=== PATIENT | female | born 1940 | race Caucasian/White ===

== ENCOUNTER 2020-07-02 16:30 | Outpatient (CLI) | payer MEDICARE, MEDICAID, SELFPAY ==
--- NOTE | 2020-07-02 16:39 | XRR_ITS ---
PROCEDURE INFORMATION: Exam: XR Chest Exam date and time: 07/02/2020 4:39 PM Age: 80 years old Clinical indication: Other: Left shoulder pain; Additional info: M25.512 - pain in left shoulder TECHNIQUE: Imaging protocol: XR of the chest. Views: 2 views. COMPARISON: CT chest w con* [id number] 12/06/2015 2:08 PM FINDINGS: Tubes, catheters and devices: Left chest ICD present. Lungs: Right lower lobe airspace opacification is suspected. Mild emphysema. Pleural spaces: Possibly small volume right pleural effusion layering dependently. Heart/Mediastinum: Background cardiomegaly is redemonstrated. Diaphragm: Elevated right diaphragm. Bones/joints: Unremarkable. XR/XR chest 2V* [id number] IMPRESSION: Suspect a small layering right pleural effusion and overlying nonspecific right lower lobe airspace opacification. Atelectasis or pneumonia not excluded.
== END 2020-07-02 16:31 | disposition home or self-care (01) ==
PROVIDERS: PCP Family Medicine; Visit Provider Nurse Practitioner Family
DX: M25.512 Pain in left shoulder (principal); J90 Pleural effusion, not elsewhere classified
CPT/HCPCS: 71046

== ENCOUNTER 2021-03-12 08:57 | Outpatient (CLI) | payer MEDICARE, MEDICAID, SELFPAY ==
[2021-03-12 07:12] VITALS: BP 144/84; PULSE 83; RESP 18; TEMP 37.3; O2SAT 98
[2021-03-12 09:29] VITALS: BMI 30.7
[2021-03-12 10:00] VITALS: BP 134/77; PULSE 83; RESP 18; TEMP 36.8; O2SAT 96
[2021-03-12 11:02] VITALS: BP 141/83; PULSE 81; RESP 17; TEMP 36.8; O2SAT 99
== END 2021-03-12 08:58 | disposition home or self-care (01) ==
PROVIDERS: PCP Family Medicine; Visit Provider Nurse Practitioner
DX: U07.1 COVID-19 (principal)
CPT/HCPCS: 96365

== ENCOUNTER → 2021-04-02 09:20 | Outpatient (BNVA) | payer MEDICARE, MEDICAID, SELFPAY | PROVIDERS: PCP Family Medicine; Visit Provider Podiatrist Foot & Ankle Surgery | DX: M79.674 Pain in right toe(s) (principal); M85.871 Other specified disorders of bone density and structure, right ankle and foot; M21.611 Bunion of right foot | CPT/HCPCS: 73630 ==

== ENCOUNTER → 2021-06-13 09:01 | Outpatient (BNVA) | payer MEDICARE, MEDICAID, SELFPAY | PROVIDERS: PCP Family Medicine; Visit Provider Internal Medicine Cardiovascular Disease | DX: Z95.0 Presence of cardiac pacemaker (principal) | CPT/HCPCS: 93279 ==

== ENCOUNTER → 2021-06-17 13:51 | Outpatient (BNVA) | payer MEDICARE, MEDICAID, SELFPAY | PROVIDERS: PCP Family Medicine; Visit Provider Internal Medicine Cardiovascular Disease | DX: I48.91 Unspecified atrial fibrillation (principal); I10 Essential (primary) hypertension; Z95.0 Presence of cardiac pacemaker | CPT/HCPCS: 99213 ==

== ENCOUNTER → 2021-06-18 09:29 | Outpatient (BNVA) | payer MEDICARE, MEDICAID, SELFPAY | PROVIDERS: PCP Family Medicine; Visit Provider Internal Medicine Cardiovascular Disease | DX: Z95.0 Presence of cardiac pacemaker (principal) | CPT/HCPCS: 93279 ==

== ENCOUNTER 2021-06-18 14:28 | Inpatient (IN) | payer MEDICARE, MEDICAID, SELFPAY ==
[2021-06-18] VITALS (13 sets, daily range): BP systolic 145–174; BP diastolic 84–104; PULSE 63–68; RESP 15–20; TEMP 36.3–36.8; O2SAT 92–98; BMI 36.1
--- NOTE | 2021-06-18 17:36 | PC.NURSE ---
20 ga lt ac rainbow drawn
[2021-06-18 17:40] LABS: Basophils # 0.1 10^3/uL (0.0-0.1); Basophils % 0.8 %; Eosinophils # 0.2 10^3/uL (0.0-0.8); Eosinophils % 1.6 %; Hematocrit 28.3 % (37.0-47.0); Hemoglobin 7.9 g/dL (11.5-15.3); Lymphocytes # 2.2 10^3/uL (0.8-4.8); Mean Corpuscular HGB Conc 27.9 g/dL (30.0-36.0); Mean Corpuscular Hemoglobin 24.5 pg (28.0-34.0); Mean Corpuscular Volume 87.6 fl (81-99); Mean Platelet Volume 11.8 fL (7.4-10.4); Monocytes # 0.6 10^3/uL (0.2-0.9); Monocytes % 6.6 %; Neutrophils # 6.08 10^3/uL (1.8-7.7); Neutrophils % 66.7 %; Nucleated Red Blood Cells % 0 %; Platelet Count 230 10^3/cmm (130-400); Red Blood Count 3.23 10^6/uL (4.1-5.3); Red Cell Distribution Width 17.8 % (12.1-15.1); White Blood Count 9.1 10^3/uL (4.0-10.0)
[2021-06-18 17:59] LABS: Alanine Aminotransferase 8 U/L (0-33); Albumin Level 4.2 g/dL (3.5-5.2); Alkaline Phosphatase 141 IU/L (35-105); Anion Gap 14.2 (5-19); Aspartate Amino Transferase 23 U/L (0-32); Blood Urea Nitrogen 29 mg/dL (8-23); Calcium 9.2 mg/dL (8.5-10.5); Carbon Dioxide 26 mmol/L (22-29); Chloride 105 mmol/L (98-107); Globulin 4.1 g/dL (1.3-4.6); Glucose 99 mg/dL (65-115); Osmolality Calculated 298 mOsm/kg (285-295); Potassium 4.2 mmol/L (3.5-5.1); Sodium 141 mmol/L (136-145); Total Bilirubin 0.3 mg/dL (0.15-1.2); Total Protein 8.3 g/dL (6.6-8.7)
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
--- NOTE | 2021-06-18 19:42 | XRR_ITS ---
PROCEDURE INFORMATION: Exam: XR Chest Exam date and time: 06/18/2021 7:52 PM Age: 81 years old Clinical indication: Other: Weakness; Prior surgery; Surgery date: 6+ months; Surgery type: Pacemaker TECHNIQUE: Imaging protocol: XR of the chest. Views: 1 view. COMPARISON: CR XR chest 2V* [id number] 07/02/2020 4:47 PM FINDINGS: Tubes, catheters and devices: Stable single lead left subclavian pacemaker. Lungs: Stable discoid atelectasis or scar in the right lung base and medial left base. The lungs are otherwise clear. Pleural spaces: Unremarkable. No pleural effusion. No pneumothorax. Heart/Mediastinum: The heart size is upper normal. Diaphragm: Stable elevation of the right diaphragm. Bones/joints: Unremarkable. XR/XR chest 1V portable [id number] IMPRESSION: No acute finding.
--- NOTE | 2021-06-18 20:15 | W.ED.WEAKNES ---
HPI - Weakness General: Chief complaint: Shortness of Breath/Dyspnea Stated complaint: abnormal labs Time Seen by Provider: 06/18/21 19:37 Source: patient Mode of arrival: ambulatory Limitations: no limitations History of Present Illness: 81-year-old female who has a history of pacemaker placement states she had over the last week she been having some weakness and dizziness seen by her market research executive had been recommending a new placement place with that scheduled on this Wednesday. States she signed in the office today she is continually feeling lightheaded especially standing was found to be anemic patient was sent here for likely admission. She does states that anytime she gets up or moves around she feels very weak denies any chest pain denies any vomiting or diarrhea denies any blood in her stool. Associated symptoms: Denies chest pain, chills, dysuria, easy bruising, fever(s), headache(s), nausea or vomiting Review of Systems Const: Denies: fever(s), chills, body aches or change in appetite Eyes: Denies: blurry vision or eye discomfort ENMT: Denies: throat pain or dental pain Card: Denies: chest pain Resp: Reports: dyspnea GI: Denies: abdominal pain, nausea, vomiting or diarrhea : Denies: dysuria Musc: Denies: neck pain or back pain Skin/Breast: Denies: rash Neuro: Denies: headache(s) Psych: Denies: depression Rony/Lymph: Denies: easy bruising All/Imm: Denies: urticaria PFSH ED PFSH: Medical History (Updated 06/18/21 @ 20:44 by Daryn Jacobs DO) Atrial fibrillation CAD (coronary artery disease) Diastolic heart failure GERD (gastroesophageal reflux disease) HTN (hypertension) Osteoarthritis Pacemaker Varicose veins of left lower extremity with other complications Surgical History S/P cardiac pacemaker procedure Family History Father , [place] age 44 Myocardial infarction Social History Smoking and tobacco status: never smoked History of recent travel: No Physical Exam Const: COMMON NORMALS: no acute distress, patient oriented x3 and healthy appearing HENMT: COMMON NORMALS: normocephalic and atraumatic HEAD & SCALP: normocephalic and atraumatic Eye: COMMON NORMALS: Equal, round and reactive pupils present and EOMs intact bilaterally PUPIL: Yes Equal, round and reactive pupils present Neck/C-Spine: COMMON NORMALS: full ROM and supple Chest: COMMONS NORMALS: normal inspection of the chest and normal palpation of entire chest wall Resp: COMMON NORMALS: normal respiratory effort, No retractions, No use of accessory muscles and clear to auscultation bilaterally AUSCULTATION: clear to auscultation bilaterally Cardio: COMMON NORMALS: regular rate, regular rhythm and No murmurs present (Cardio) RATE: regular rate RHYTHM: regular rhythm GI: COMMON NORMALS: Normal to inspection, nondistended, normoactive bowel sounds present, Soft to palpation, non-tender and no masses PALPATION: Yes Soft to palpation Extremity: COMMON NORMALS: normal to inspection and full ROM Neuro: COMMON NORMALS: patient oriented x3, moves all extremities and no focal motor deficits Psych: COMMON NORMALS: mental status grossly normal, Normal thought process present and cooperative THOUGHT PROCESS: Normal thought process present Skin: COMMON NORMALS: no rashes or lesions noted and no wounds GENERAL SKIN EXAM: no rashes or lesions noted Course Vital Signs: Vital signs: Vital Signs Temperature 98.1 F 06/18/21 17:54 Pulse Rate 65 06/18/21 17:54 Respiratory Rate 15 06/18/21 17:54 Blood Pressure 145/87 06/18/21 17:54 Pulse Oximetry 97 06/18/21 17:54 MDM - Weakness Medical Decision Making Patient presents here with some generalized weakness she is scheduled to have a pacemaker placed on Wednesday she is anemic here no signs of acute bleeding blood pressure here is normal spoke to hospitalist will admit also spoke to Dr. Chase of cardiology who is consulted. Lab Data : 06/18/21 17:29 06/18/21 17:29 Radiology Impressions Chest X-Ray 06/18/21 19:42 IMPRESSION: No acute finding. Laboratory Results WBC 9.1 10^3/uL (4.0-10.0) 06/18/21 17:29 RBC 3.23 10^6/uL (4.1-5.3) L 06/18/21 17:29 Hgb 7.9 g/dL (11.5-15.3) L 06/18/21 17: Hct 28.3 % (37.0-47.0) L 06/18/21 17: MCV 87.6 fl (81-99) 06/18/21 17: MCH 24.5 pg (28.0-34.0) L 06/18/21 17: MCHC 27.9 g/dL (30.0-36.0) L 06/18/21: RDW 17.8 % (12.1-15.1) H 06/18/21 17: Plt Count 230 10^3/cmm (130-400) 06/18/21 17: MPV 11.8 fL (7.4-10.4) H 06/18/21: Neut % (Auto) 66.7 % 06/18/21: Lymph % (Auto) 24.0 % 06/18/21: [place] % (Auto) 6.6 % 06/18/21 17: Eos % (Auto) 1.6 % 06/18/21 17: Baso % (Auto) 0.8 % 06/18/21: Neut # (Auto) 6.08 10^3/uL (1.8-7.7) 06/18/21: Lymph # (Auto) 2.2 10^3/uL (0.8-4.8) 06/18/21: [place] # (Auto) 0.6 10^3/uL (0.2-0.9) 06/18/21: Eos # (Auto) 0.2 10^3/uL (0.0-0.8) 06/18/21: Baso # (Auto) 0.1 10^3/uL (0.0-0.1) 06/18/21: Nucleated RBC % (auto) 0 % 06/18/21: Nucleated RBCs # 0.0 /100WBC 06/18/21 17: Sodium 141 mmol/L (136-145) 06/18/21 17: Potassium 4.2 mmol/L (3.5-5.1) 06/18/21: Chloride 105 mmol/L (98-107) 06/18/21 17:29 Carbon Dioxide 26 mmol/L (22-29) 06/18/21 17:29 Anion Gap 14.2 (5-19) 06/18/21 17:29 BUN 29 mg/dL (8-23) H 06/18/21 17:29 Creatinine 1.2 mg/dL (0.5-0.9) H 06/18/21 17:29 GFR Calculation Not Reportable 06/18/21 17:29 Glucose 99 mg/dL (65-115) 06/18/21 17:29 Calculated Osmolality 298 mOsm/kg (285-295) H 06/18/21 17:29 Calcium 9.2 mg/dL (8.5-10.5) 06/18/21 17:29 Total Bilirubin 0.3 mg/dL (0.15-1.2) 06/18/21 17:29 AST 23 U/L (0-32) 06/18/21 17:29 ALT 8 U/L (0-33) 06/18/21 17:29 Alkaline Phosphatase 141 IU/L (35-105) H 06/18/21 17:29 Total Protein 8.3 g/dL (6.6-8.7) 06/18/21 17:29 Albumin 4.2 g/dL (3.5-5.2) 06/18/21 17:29 Globulin 4.1 g/dL (1.3-4.6) 06/18/21 17:29 Blood Type B Positive 06/18/21 17:29 Rho(D) Type Positive 06/18/21 17:29 Antibody Screen Negative 06/18/21 17:29 Crossmatch See Detail 06/18/21 17:29 EKG Data EKG 1: I personally reviewed and interpreted this EKG as follows: EKG interpretation date: 06/18/21 EKG interpretation time: 20:09 Interpretation: paced hr [address] or t wave abnormalities qrs 198 qtc 506 Discharge Plan Discharge Patient Disposition: Admitted As Inpatient Clinical Impression: Pacemaker, Anemia Condition: Stable Prescriptions: No Action Amitiza 24 mcg capsule 24 mcg PO BID 0RF aspirin [Adult Low Dose Aspirin] 81 mg tablet,delayed release (DR/EC) 81 mg PO DAILY 0RF multivitamin Tablet 1 tab PO DAILY 0RF eszopiclone [Lunesta] 2 mg tablet PO 0RF albuterol sulfate [ProAir HFA] 90 mcg/actuation HFA aerosol inhaler 2 puff INHALATION Q6H PRN (Reason: Shortness Of Breath) 0RF hydrocodone-acetaminophen 5-325 mg tablet 1 tab PO BID PRN (Reason: Pain) 0RF pregabalin [Lyrica] 75 mg capsule 150 mg PO BID 0RF Rx Instructions: 150mg at NOON and 150mg HS sennosides 25 mg tablet 75 mg PO DIRECTED PRN (Reason: Constipation) 0RF Rx Instructions: 50mg in AM and 25mg in PM warfarin 2.5 mg tablet 2.5 mg PO DIRECTED 0RF Rx Instructions: 1mg MWF 2mg all other days Breztri Aerosphere 160-9-4.8 mcg/actuation HFA aerosol inhaler 2 inh inhalation BID 0RF mupirocin 2 % ointment 1 applic topical BID 14 Days Qty: 22 0RF furosemide [Lasix] 20 mg tablet 20 mg PO DAILY PRN (Reason: weight gain) Qty: 90 3RF losartan 50 mg tablet 50 mg PO DAILY Qty: 90 3RF potassium chloride 10 mEq tablet extended release 10 meq PO DAILY PRN (Reason: weight gain) Qty: 90 3RF ropinirole 2 mg tablet 2 mg PO DAILY 0RF calcium carbonate-vitamin D3 [Calcium 600 with Vitamin D3] 600 mg(1,500mg) -500 unit capsule PO 0RF amlodipine 5 mg tablet 2.5 mg PO DAILY 0RF metoprolol succinate 50 mg tablet extended release 24 hr 150 mg PO DIRECTED 0RF Rx Instructions: 2 in AM and 1 HS lansoprazole [Prevacid] 30 mg capsule,delayed release(DR/EC) 30 mg PO BID Qty: 180 3RF Referrals: Neeraj Cardoza MD [Primary Care Provider] - Coding Level of Care Code ED Agronomy Technician for Chg Fwd Exam Comprehensive
--- NOTE | 2021-06-18 20:42 | P.HP_ITS ---
Providers/Chief Complaint Primary Care Provider: Neeraj Cardoza MD Chief Complaint: abnormal labs History of Present Illness The patient is an 81-year-old female who was directed to the emergency department by her farm machine operator due to anemia. Upon further questioning the patient Cates that she has been feeling unwell for approximately 2 days leading up to hospitalization. She admits to dyspnea, dyspnea on exertion, lightheaded, dizziness. She denies fever, rigors, nausea, vomiting, cough, wheeze, abdominal pain, diarrhea, myalgia, chest pain, diaphoresis, palpitations, sensation of rapid heartbeat, sensation knee regular heartbeat. She denies melena or hematochezia. In the emergency department she is found to be mildly anemic. She presents for further evaluation Review of Systems General: Reports: 10 or more systems reviewed and unremarkable except in HPI and below Medications/Allergies Home Medications Medication Instructions Recorded Confirmed Last Taken Type albuterol sulfate 90 mcg/actuation 2 puff INHALATION Q6H PRN 05/16/19 06/17/21 03/11/21 History aerosol inhaler (ProAir HFA) aspirin 81 mg tablet,delayed 81 mg PO DAILY 05/16/19 06/17/21 03/11/21 History release (Adult Low Dose Aspirin) eszopiclone 2 mg tablet (Lunesta) PO 05/16/19 06/17/21 03/11/21 History hydrocodone 5 mg-acetaminophen 325 1 tab PO BID PRN 05/16/19 06/17/21 03/11/21 History mg tablet lubiprostone 24 mcg capsule 24 mcg PO BID 05/16/19 06/17/21 03/11/21 History (Amitiza) multivitamin 1 tab PO DAILY 05/16/19 06/17/21 03/11/21 History pregabalin 75 mg capsule (Lyrica) 150 mg PO BID cap 10/11/20 06/17/21 03/11/21 History ropinirole 2 mg tablet 2 mg PO DAILY 10/11/20 06/17/21 03/11/21 History sennosides 25 mg tablet 75 mg PO DIRECTED PRN tab 10/11/20 06/17/21 03/11/21 History warfarin 2.5 mg tablet 2.5 mg PO DIRECTED tab 10/11/20 06/17/21 03/11/21 History budesonide 160 mcg-glycopyr 9 2 inh INHALATION BID 02/13/21 04/23/21 03/11/21 History mcg-formot 4.8 mcg/actuation HFA inhaler (Breztri Aerosphere) mupirocin 2 % topical ointment 1 applic TOPICAL BID 14 Days #22 g 02/13/21 06/17/21 03/11/21 Rx calcium carbonate 600 mg-vitamin cap PO 02/14/21 06/17/21 03/11/21 History D3 12.5 mcg (500 unit) capsule (Calcium 600 with Vitamin D3) furosemide 20 mg tablet (Lasix) 20 mg PO DAILY PRN #90 tab 04/15/21 06/17/21 Unknown Rx losartan 50 mg tablet 50 mg PO DAILY #90 tab 04/15/21 06/17/21 Unknown Rx potassium chloride 10 mEq 10 meq PO DAILY PRN #90 tab 04/15/21 06/17/21 Unknown Rx tablet,extended release lansoprazole 30 mg capsule,delayed 30 mg PO BID #180 cap 04/29/21 06/17/21 Unkno wn Rx release (Prevacid) amlodipine 5 mg tablet 2.5 mg PO DAILY tab 06/17/21 Unknown History metoprolol succinate 50 mg 150 mg PO DIRECTED tab 06/17/21 Unknown History tablet,extended release 24 hr Allergies Allergy/AdvReac Type Severity Reaction Status Date / Time atropine Allergy Unknown Unknown Verified 06/17/21 14:00 benztropine Allergy Unknown Unknown Verified 06/17/21 14:00 cefadroxil [From Duricef] Allergy Unknown Unknown Verified 06/17/21 14:00 cimetidine Allergy Unknown Unknown Verified 06/17/21 14:00 enalapril Allergy Unknown Unknown Verified 06/17/21 14:00 enalaprilat [From Vasotec] Allergy Unknown Unknown Verified 06/17/21 14:00 gabapentin Allergy Unknown Unknown Verified 06/17/21 14:00 Sulfa (Sulfonamide Allergy Unknown Unknown Verified 06/17/21 14:00 Antibiotics) zolpidem [From Ambien] Allergy Unknown Unknown Verified 06/17/21 14:00 PFSH Acute PFSH: Medical History (Updated 06/18/21 @ 20:44 by Daryn Jacobs DO) Atrial fibrillation CAD (coronary artery disease) Diastolic heart failure GERD (gastroesophageal reflux disease) HTN (hypertension) Osteoarthritis Pacemaker Varicose veins of left lower extremity with other complications Surgical History S/P cardiac pacemaker procedure Family History Father , [place] age 44 Myocardial infarction Social History Smoking and tobacco status: never smoked History of recent travel: No Vitals/I&O/Wt Last Vital Signs Temp 98.1 F 06/18/21 17:54 Pulse 65 06/18/21 17:54 Resp 15 06/18/21 17:54 BP 145/87 06/18/21 17:54 Pulse Ox 97 06/18/21 17:54 Weight last 48 hrs Weight 83.915 kg Physical Exam Narrative: General: -Alert -No acute distress -No dyspnea -No tachypnea Head: -Atraumatic -Normocephalic Eyes: -Pupils equally round and reactive to light and accommodation -Extraocular muscles intact Neurological: -Cranial nerves II-XII intact Neck: -No jugular venous distention -No thyromegaly -No cervical lymphadenopathy Heart: -Regular rate -Regular rhythm -No murmurs -No gallops -No rubs Lungs: -No wheeze -No rhonchi -No rales ? Abdomen: -Normal bowel sounds in all four quadrants -No rebound -No guarding -No tenderness Extremities: -2/4 pulse in all four extremities -No clubbing -No cyanosis -No edema -No calf tenderness present bilaterally -Negative Elmer?s sign bilaterally Musculoskeletal: -5/5 bilateral upper extremity strength -5/5 bilateral lower extremity strength -Sensorium of bilateral upper extremities are equal and intact -Sensorium of bilateral lower extremities are equal and intact ? Additional Details / Additional Findings / Exceptions / Miscellaneous: Data : 06/18/21 17:29 06/18/21 17:29 A&P Assessment and plan (1) Atrial fibrillation: Status: Acute Plan Generalized weakness, perhaps secondary to anemia. Urinalysis pending. Chest x-ray pending. IV normal saline at 50 ML's per hour. Telemetry monitoring. Query malfunctioning pacemaker. The patient indicates that she was scheduled for pacemaker placement, I believe, on June 20, 2021. Telemetry monitoring. I have been notified that cardiology is aware of the patient and that the pacemaker will be replaced during this hospitalization Osteopenia Acute renal insufficiency. Will monitor creatinine intermittently. IV normal saline 50 ML's per hour while closely monitoring respiratory function given patient's history of CHF Restless leg syndrome. Requip 2 Mill grams by mouth daily Insomnia Asthma Atrial for ablation, status post pacemaker placement. Telemetry monitoring IBS. MAT is a 24 my grams by mouth twice a day Chronic pain Anemia. We will monitor hemoglobin level intermittently. Check serum ferritin, iron panel, fecal occult blood. Patient has been ordered 2 units packed red blood cells to be transfused by the emergency department on June 18, 2021 CHF, ejection fraction 45% with moderate to severe tricuspid regurgitation, moderate pulmonary hypertension. Strict I/O. Daily weight Coronary artery disease GERD Hypertension Obesity. The patient becomes regarding lifestyle modification Neuropathy. Lyrica 75 Mill grams by mouth twice a day DVT Proflex is. Bilateral SCD Attestations Medical Necessity Statement*: Expected length of stay is greater than 48 hours Coding Level of Care Code Acute Research Group Director for Chg Fwd Diagnoses Atrial fibrillation I48.91
[2021-06-18 21:00] LABS: Bilirubin Urine Neg (Negative); Blood Urine Neg (Negative); Glucose Urine UA Norm (Normal); Ketones Urine Negative (Negative); Nitrate Urine Positive (Negative); Protein Urine 1+ (Negative); Urine Appearance SL Hazy (CLEAR); Urine Color Yellow (Yellow); Urobilinogen Urine 1 mg/dL (Negative); pH Urine 5 (5-7)
[2021-06-18 21:01] LABS: Add Urine Microscopic? YES; Leukocyte Esterase Urine 1+ (Negative)
[2021-06-18 21:02] LABS: RBC Urine 0-4 /hpf (0-2)
[2021-06-18 21:03] LABS: Bacteria Urine 2+ /hpf; WBC Urine 55-80 /hpf (0-5)
[2021-06-18 21:04] LABS: Add Urine Culture? Yes
[2021-06-18 21:41] LABS: Ferritin 6 ng/mL (15-150); Iron 19 ug/dL (37-145); Percent Saturation 4.7 % (20-50); Total Iron Binding Capacity 403 mcg/dl; Unsaturated Iron Binding 384 ug/dL (112-347)
[2021-06-18] MEDS: HYDROcodone-acetaminophen 5-325 mg Tablet 1 TAB PO (23:04)
[2021-06-18] MEDS: ropinirole 2 mg Tablet PO (23:04)
[2021-06-18] MEDS: pregabalin 75 mg Capsule 150 MG PO (23:05)
[2021-06-18] MEDS: sodium chloride 0.9% 1,000 ML 50 ML IV (23:06)
[2021-06-19] VITALS (12 sets, daily range): BP systolic 118–153; BP diastolic 74–88; PULSE 64–65; RESP 14–20; TEMP 36.4–36.8; O2SAT 91–98
[2021-06-19 05:05] LABS: Hemoglobin 10.7 g/dL (11.5-15.3)
[2021-06-19 05:16] LABS: INR 1.79 (0.8-1.2)
[2021-06-19 05:17] LABS: Partial Thromboplastin Time 42.4 SECONDS (23.9-36.7)
[2021-06-19 05:26] LABS: Anion Gap 13.9 (5-19); Blood Urea Nitrogen 25 mg/dL (8-23); Calcium 8.7 mg/dL (8.5-10.5); Carbon Dioxide 23 mmol/L (22-29); Chloride 108 mmol/L (98-107); Glucose 110 mg/dL (65-115); Osmolality Calculated 297 mOsm/kg (285-295); Potassium 3.9 mmol/L (3.5-5.1); Sodium 141 mmol/L (136-145)
--- NOTE | 2021-06-19 06:24 | PC.NURSE ---
Patient arrived to floor via cart, AAOx4, OOB to bathroom using walker. Received PRBC with no complications, minimal c/o pain. No new events, no needs at this time. Refusing to get into chair at this time and wants to wait until closer to breakfast.
--- NOTE | 2021-06-19 08:38 | PM.CONSULT ---
Providers/Reason For Consult Consulting Physician/Specialty*: ISIS Chase MD/cardiology Reason for Consult*: Patient with permanent pacemaker, has SOLA, symptomatic patient Requesting Physician: Dr. Garrison Attending Physician: Chip Garrison MD Primary Care Provider: Neeraj Cardoza MD History of Present Illness History of Present Illness Megan Das is a 81 year old female with a history of chronic atrial fibrillation, had? AV mian ablation in 2006 followed by permanent pacemaker in [place] by Dr. Johansen at the [facility]. Her initial pacemaker was revised in 2013. She presented to the clinic with complaints of shortness of breath, dizziness and weakness. Her pacemaker interrogation revealed - the device went into SOLA on 06/17/2021. Patient had a CBC yesterday which revealed a hemoglobin of 7.7. She is known to have chronic atrial fibrillation and is on long-term oral anticoagulation with Coumadin. She is admitted to the hospital for further evaluation and management. The patient is pacemaker dependent. According the patient, when her pacemaker went into SOLA last time also she became very weak and tired. Her lower rate is set for 80. The SOLA rate is 65. Patient has not been feeling well for the last couple of weeks. Her symptoms got worse in the last couple of days. The worsening of her symptoms seems to be correlating with the SOLA. She denies any fever or chills. No cough. No hematemesis or melena. She has a history of GERD. Also has a history of high blood pressure. No history for CVA or peripheral artery disease. No history for any kidney disease or bleeding disorders. Has not had any significant anemia in the recent past. Patient received 2 units of blood yesterday. She seems to be feeling better today. We have not yet identified a source of bleeding. 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 Date of implantation: 08/24/2006 Review of Systems Narrative: CONSTITUTIONAL: No fever or chills. Lysed weakness/fatigue/tiredness as mentioned above EYES: No blurring of vision or other visual disturbances lately. ENT: No hoarseness of voice, auditory disturbances or sore throat. CARDIOVASCULAR: As mentioned above. RESPIRATORY: No significant cough. GASTROINTESTINAL: No hematemesis or melena. GENITOURINARY: No dysuria or hematuria. INTEGUMENTARY: No skin rashes or history of skin cancer. NEURO: No transient ischemic attacks or amaurosis. PSYCHIATRIC: No history of psychosis or major depression. HEMATOLOGIC: Patient is on long-term oral anticoagulation. Currently diagnosed with anemia ENDOCRINE: No history of polyuria or polydipsia. MUSCULOSKELETAL: No recent joint pain or swelling. ALLERGY/IMMUNOLOGY: As mentioned above. Medications/Allergies Home Medications Medication Instructions Recorded Confirmed Last Taken Type albuterol sulfate 90 mcg/actuation 2 puff INHALATION Q6H PRN 05/16/19 06/18/21 03/11/21 History aerosol inhaler (ProAir HFA) aspirin 81 mg tablet,delayed 81 mg PO BEDTIME 05/16/19 06/18/21 06/17/21 History release (Adult Low Dose Aspirin) eszopiclone 2 mg tablet (Lunesta) 2 mg PO BEDTIME 05/16/19 06/18/21 06/17/21 History hydrocodone 5 mg-acetaminophen 325 1 tab PO BID PRN 05/16/19 06/18/21 06/18/21 History mg tablet lubiprostone 24 mcg capsule 24 mcg PO BID 05/16/19 06/18/21 06/18/21 History (Amitiza) multivitamin 1 tab PO DAILY 05/16/19 06/18/21 06/18/21 History ropinirole 2 mg tablet 2 mg PO BEDTIME 10/11/20 06/18/21 06/17/21 History warfarin 2.5 mg tablet See Rx Instructions .ROUTE 10/11/20 06/18/21 06/17/21 History .COMPLEX tab budesonide 160 mcg-glycopyr 9 2 inh INHALATION DAILY 02/13/21 06/18/21 06/18/21 History mcg-formot 4.8 mcg/actuation HFA inhaler (Breztri Aerosphere) mupirocin 2 % topical ointment 1 applic TOPICAL BID 14 Days #22 g 02/13/21 06/18/21 03/11/21 Rx calcium carbonate 600 mg-vitamin 1 cap PO DAILY 02/14/21 06/18/21 06/18/21 History D3 12.5 mcg (500 unit) capsule (Calcium 600 with Vitamin D3) lansoprazole 30 mg capsule,delayed 30 mg PO BID #180 cap 04/29/21 06/18/21 06/18/21 Rx release (Prevacid) amlodipine 5 mg tablet 2.5 mg PO BEDTIME tab 06/17/21 06/18/21 06/17/21 History metoprolol succinate 50 mg See Rx Instructions .ROUTE 06/17/21 06/18/21 06/18/21 History tablet,extended release 24 hr .COMPLEX tab eszopiclone 2 mg tablet (Lunesta) 2 mg PO BEDTIME 06/18/21 06/19/21 Unknown History furosemide 20 mg tablet (Lasix) See Rx Instructions .ROUTE .COMPLEX 06/18/21 06/18/21 06/17/21 History hydrocodone 5 mg-acetaminophen 325 1 tab PO Q4H PRN 06/18/21 06/19/21 Unknown History mg tablet losartan 50 mg tablet 50 mg PO BEDTIME 06/18/21 06/18/21 06/17/21 History potassium chloride 10 mEq See Rx Instructions .ROUTE .COMPLEX 06/18/21 06/18/21 06/17/21 History tablet,extended release pregabalin 150 mg capsule 150 mg PO BID 06/18/21 06/18/21 06/18/21 History sennosides 8.6 mg tablet (senna) See Rx Instructions .ROUTE .COMPLEX 06/18/21 06/18/21 06/18/21 History vit C 250 mg-vit E 90 mg-zinc 40 1 tab PO BID 06/18/21 06/18/21 06/18/21 History mg-copper 1 [id number] capsule (PreserVision AREDS-2) Allergies Allergy/AdvReac Type Severity Reaction Status Date / Time atropine Allergy Unknown Unknown Verified 06/17/21 14:00 benztropine Allergy Unknown Unknown Verified 06/17/21 14:00 cefadroxil [From Duricef] Allergy Unknown Unknown Verified 06/17/21 14:00 cimetidine Allergy Unknown Unknown Verified 06/17/21 14:00 enalapril Allergy Unknown Unknown Verified 06/17/21 14:00 enalaprilat [From Vasotec] Allergy Unknown Unknown Verified 06/17/21 14:00 gabapentin Allergy Unknown Unknown Verified 06/17/21 14:00 Sulfa (Sulfonamide Allergy Unknown Unknown Verified 06/17/21 14:00 Antibiotics) zolpidem [From Ambien] Allergy Unknown Unknown Verified 06/17/21 14:00 Current Medications Generic Name Dose Route Start Last Admin Trade Name Freq PRN Reason Stop Dose Admin Hydrocodone Bitart/Acetaminophen 1 tab 06/18/21 22:51 06/18/21 23:04 Hydrocodone-Acetaminophen 5-325 Mg Tablet PO 1 tab Q4H PRN Administration Pain Sodium Chloride 1,000 mls @ 75 mls/hr 06/18/21 21:00 06/18/21 21:15 Sodium Chloride 0.9% IV Not Given .[id number] KACEY Sodium Chloride 1,000 mls @ 50 mls/hr 06/18/21 22:01 06/18/21 23:06 Sodium Chloride 0.9% IV 50 mls/hr .Q20H KACEY Administration Pregabalin 150 mg 06/18/21 22:45 06/18/21 23:05 Pregabalin 75 Mg Capsule PO 150 mg BID KACEY Administration Ropinirole HCl 2 mg 06/18/21 22:38 06/18/21 23:04 Ropinirole 2 Mg Tablet PO 2 mg DAILY KACEY Administration PFSH Acute PFSH: Medical History Atrial fibrillation CAD (coronary artery disease) Diastolic heart failure GERD (gastroesophageal reflux disease) HTN (hypertension) Osteoarthritis Pacemaker Varicose veins of left lower extremity with other complications Surgical History Previous back surgery S/P cardiac pacemaker procedure S/P cataract extraction S/P hysterectomy S/P rotator cuff repair *DELETE* S/P tubal ligation Family History Father , [place] 44 Myocardial infarction Social History Smoking and tobacco status: never smoked History of recent travel: No Vitals/I&O/Wt Last Vital Signs Temp 97.8 F 06/19/21 07:57 Pulse 65 06/19/21 07:57 Resp 16 06/19/21 07:57 BP 138/88 06/19/21 07:57 Pulse Ox 97 04/07/22 07:57 06/18/21 06/19/21 06/19/21 22:59 06:59 14:59 Intake Total 350 / 350 450 / 800 0 / 0 Balance 350 / 350 450 / 800 0 / 0 Weight last 48 hrs Weight 191 lb 12.835 oz Weight 185 lb Physical Exam Narrative: GENERAL: The patient is alert and oriented times three. Not in any acute distress. HEENT: Minimal pallor. No icterus or lymphadenopathy. The pupils are reactant to light. Oral cavity: There are no mucous membrane lesions. Funduscopic examination: The fundus is not visualized. NECK: Trachea appears to be central. No masses noted. No JVD or thyromegaly appreciated. No carotid bruit. RESPIRATORY: Chest is symmetrical. No intercostals muscle retraction or any accessory muscle activation. There is no chest wall tenderness. Breath sounds are heard bilaterally. No rales or rhonchi heard. No evidence of any consolidation. Her systolic murmur in the left sternal border. No diastolic murmurs. The pacemaker site has minimal keloid but no signs of infection. BREASTS: Deferred. HEART: The PMI is in the 5th left intercostals space just inside the midclavicular line. No palpable precordial events. S1 and S2 are normal. No S3 or S4 heard. No pericardial rub or any click heard. ABDOMEN: No vessel pulsations or distention. No tenderness. No organomegaly appreciated. No abdominal bruit. Bowel sounds are normally heard. : Deferred. RECTAL: Deferred. LYMPHATIC: No lymphadenopathy noted in the neck or groin. EXTREMITIES: No edema or cyanosis. No clubbing. Peripheral pulses are palpable but weak bilaterally. MUSCULOSKELETAL: Gait is normal. There is no joint deformity or swelling noted. No joint tenderness or any effusion. The shoulder and hip joints appear to have normal range of motion. SKIN: There are no significant scars or skin rash noted. NEUROPSYCHIATRIC: The patient is alert and oriented x3. Appears to be in a good mood. The higher functions are grossly within normal limits. No tremors or rigidity noted. Data : 06/20/21 03:11 06/20/21 03:11 Other Labs: Laboratory Last Values WBC 9.1 10^3/uL (4.0-10.0) 06/18/21 17:29 RBC 3.23 10^6/uL (4.1-5.3) L 06/18/21 17:29 Hgb 10.7 g/dL (11.5-15.3) L D 06/19/21 04:56 Hct 28.3 % (37.0-47.0) L 06/18/21 17:29 MCV 87.6 fl (81-99) 06/18/21 17:29 MCH 24.5 pg (28.0-34.0) L 06/18/21 17:29 MCHC 27.9 g/dL (30.0-36.0) L 06/18/21 17:29 RDW 17.8 % (12.1-15.1) H 06/18/21 17:29 Plt Count 230 10^3/cmm (130-400) 06/18/21 17:29 MPV 11.8 fL (7.4-10.4) H 06/18/21 17:29 Neut % (Auto) 66.7 % 06/18/21 17:29 Lymph % (Auto) 24.0 % 06/18/21 17:29 [place] % (Auto) 6.6 % 06/18/21 17:29 Eos % (Auto) 1.6 % 06/18/21 17:29 Baso % (Auto) 0.8 % 06/18/21 17:29 Neut # (Auto) 6.08 10^3/uL (1.8-7.7) 06/18/21 17:29 Lymph # (Auto) 2.2 10^3/uL (0.8-4.8) 06/18/21 17:29 [place] # (Auto) 0.6 10^3/uL (0.2-0.9) 06/18/21 17:29 Eos # (Auto) 0.2 10^3/uL (0.0-0.8) 06/18/21 17:29 Baso # (Auto) 0.1 10^3/uL (0.0-0.1) 06/18/21 17:29 Nucleated RBC % (auto) 0 % 06/18/21 17:29 Nucleated RBCs # 0.0 /100WBC 06/18/21 17:29 PT 21.20 SECONDS (12.1-14.9) H 06/19/21 04:56 INR 1.79 (0.8-1.2) H 06/19/21 04:56 APTT 42.4 SECONDS (23.9-36.7) H 06/19/21 04:56 Sodium 141 mmol/L (136-145) 06/19/21 04:56 Potassium 3.9 mmol/L (3.5-5.1) 06/19/21 04:56 Chloride 108 mmol/L (98-107) H 06/19/21 04:56 Carbon Dioxide 23 mmol/L (22-29) 06/19/21 04:56 Anion Gap 13.9 (5-19) 06/19/21 04:56 BUN 25 mg/dL (8-23) H 06/19/21 04:56 Creatinine 1.1 mg/dL (0.5-0.9) H 06/19/21 04:56 GFR Calculation Not Reportable 06/19/21 04:56 Glucose 110 mg/dL (65-115) 06/19/21 04:56 Calculated Osmolality 297 mOsm/kg (285-295) H 06/19/21 04:56 Calcium 8.7 mg/dL (8.5-10.5) 06/19/21 04:56 Iron 67 ug/dL (37-145) 06/19/21 04:56 TIBC 373 mcg/dl 06/19/21 04:56 % Saturation 17.9 % (20-50) L 06/19/21 04:56 Unsat Iron Binding 306 ug/dL (112-347) 06/19/21 04:56 Ferritin 13 ng/mL (15-150) L 06/19/21 04:56 Total Bilirubin 0.3 mg/dL (0.15-1.2) 06/18/21 17:29 AST 23 U/L (0-32) 06/18/21 17:29 ALT 8 U/L (0-33) 06/18/21 17:29 Alkaline Phosphatase 141 IU/L (35-105) H 06/18/21 17:29 Total Protein 8.3 g/dL (6.6-8.7) 06/18/21 17:29 Albumin 4.2 g/dL (3.5-5.2) 06/18/21 17:29 Globulin 4.1 g/dL (1.3-4.6) 06/18/21 17:29 Vitamin B12 531 pg/mL (232-1245) 06/19/21 04:56 Urine Color Yellow (Yellow) 06/18/21 20:30 Urine Appearance Sl hazy (CLEAR) 06/18/21 20:30 Urine pH 5 (5-7) 06/18/21 20:30 Ur Specific [place] 1.020 (1.005-1.030) 06/18/21 20:30 Urine Protein 1+ (Negative) H 06/18/21 20:30 Urine Glucose (UA) Norm (Normal) 06/18/21 20:30 Urine Ketones Negative (Negative) 06/18/21 20:30 Urine Blood Neg (Negative) 06/18/21 20:30 Urine Nitrate Positive (Negative) H 06/18/21 20:30 Urine Bilirubin Neg (Negative) 06/18/21 20:30 Urine Urobilinogen 1 mg/dL (Negative) H 06/18/21 20:30 Ur Leukocyte Esterase 1+ (Negative) H 06/18/21 20:30 Urine RBC 0-4 /hpf (0-2) H 06/18/21 20:30 Urine WBC 55-80 /hpf (0-5) H 06/18/21 20:30 Ur Squamous Epith Cells 5-10 /hpf (0-5) H 06/18/21 20:30 Amorphous Sediment Not Reportable 06/18/21 20:30 Urine Bacteria 2+ /hpf (NONE) H 06/18/21 20:30 Blood Type B Positive 06/18/21 17:29 Rho(D) Type Positive 06/18/21 17:29 Antibody Screen Negative 06/18/21 17:29 Crossmatch See Detail 06/18/21 17:29 EKG 1: My Interpretation: The EKG revealed 100% V paced rhythm. Rate of 65 bpm. Further interpretation is not possible EKG computer-generated impression: Chest X-Ray 06/18/21 19:42 IMPRESSION: No acute finding. Other data: The chest x-ray revealed borderline cardia silhouette with no lung infiltrates. No acute pathology noted. A&P Assessment and plan (1) Pacemaker at end of battery life: Patient requires a pacemaker revision for further management of her condition. This need to be done as early as possible because of the patient's symptoms and pacemaker dependency Status: Acute (2) Atrial fibrillation: The INR is elevated-1.79 today. May hold off on anticoagulation at this point. Status: Acute (3) HTN (hypertension): The blood pressure seems to be under control. May continue on the current medication. Status: Acute (4) Blood loss anemia: The etiology of the blood loss is not clear. Patient requires further work-up. Status: Acute Plan Based on the patient's clinical progress, further recommendations will be made. Thank you for the opportunity to evaluate this patient make these recommendation Coding Level of Care Code Acute Electrocardiogram Technician for Arturo Fwd History Detailed Exam Detailed Medical Decision Making Moderate Complexity Diagnoses Pacemaker at end of battery life Z45.010 Atrial fibrillation I48.91 HTN (hypertension) I10 Blood loss anemia D50.0
[2021-06-19 08:44] LABS: Ferritin 13 ng/mL (15-150); Iron 67 ug/dL (37-145); Percent Saturation 17.9 % (20-50); Total Iron Binding Capacity 373 mcg/dl; Unsaturated Iron Binding 306 ug/dL (112-347)
[2021-06-19 08:56] LABS: Vitamin B12 531 pg/mL (232-1245)
[2021-06-19] MEDS: ondansetron 2 mg/ML SDV 2 mL 4 MG IVP (09:47)
--- NOTE | 2021-06-19 11:02 | PC.CHAP ---
Pastoral Care Encounter/Spiritual Assessment Type of Contact [] Declined land agent visit [] Patient/Family/Request visit [] Outpatient visit [] Follow-up visit [] Physician referral [] Code/Alert [] Routine visit [] Staff referral [] Actively dying [] Patient sleeping [] Family support [] [] Out of room [] Palliative care [] [] Receiving care in room [] Pre-surgical visit [] Trauma [] Long length of stay [] ICU visit [] Other: under staff care Relational/Emotional Strength [] Patient feels connected with others/family/visitors/staff [] Distress [] Loneliness/isolation [] Abandonment Spirituality of Patient [] Person of Evi [] Attends Religion of their Evi [] Believes in Prayer [] Reads Bible or Gnosticism materials [] There are Spiritual issues to be addressed Bolting Machine Operator Interventions [] Prayer [] Active listening [] Non-anxious presence [] Spiritual/emotional support [] Crisis/trauma care [] Spiritual counseling [] Bereavement support [] Provided bereavement packet [] Provided Bible/devotional materials [] Provided toy/stuffed animal, coloring book to patient or family member [] Provided Communion [] Anointing/[place] [] Salvation [] Completed spiritual assessment [] Other: Impact on Illness or Injury [] Angry [] Fearful [] Anxious [] Often cries [] Exhaustion [] Unable to work [] Unable to attend congregational [] Unable to walk/stand [] Unable to read [] Unable to drive [] Unable to eat/drink [] Unable to sleep [] Unable to be with family [] Patient intubated [] Other: Summary under staff care Time spent with patient 5 mins
--- NOTE | 2021-06-19 12:39 | P.PN_ITS ---
Subjective Subjective: This morning patient was very pleasant Status post 1 unit PRBC hemoglobin 10.7 Patient is stating that she has not noticed stool consistency in the color FOBT is pending No active bleed noted so far INR 1.7 No need to reverse Coumadin Iron deficiency anemia Abnormal UA Plan for pacemaker revision Vitals/I&O/Wt Last Vital Signs Temp 98.3 F 06/19/21 11:35 Pulse 64 06/19/21 11:35 Resp 16 06/19/21 11:35 BP 136/83 06/19/21 11:35 Pulse Ox 95 06/19/21 11:35 06/18/21 06/19/21 06/19/21 22:59 06:59 14:59 Intake Total 350 / 350 450 / 800 120 / 120 Output Total 200 / 200 Balance 350 / 350 450 / 800 -80 / -80 Weight last 48 hrs Weight 87 kg Weight 83.915 kg Physical Exam Narrative: Very pleasant cooperative female Elderly female Looks euvolemic Abdomen soft S1, S2 variable No signs of audible stridor or wheezing Saturating well on room air No active bleeding Data : 06/19/21 04:56 06/19/21 04:56 A&P Assessment and plan (1) Pacemaker: Status: Acute (2) Atrial fibrillation: Status: Acute (3) HTN (hypertension): Status: Acute Plan Generalized weakness related to pacemaker and underlying anemia Pacemaker revision tomorrow morning FOBT pending, INR 1.7 Holding Coumadin for now She has not noticed consistency or color of her stool Status post 2 unit PRBC Hemodynamically stable Currently doing well on room air UTI continue ceftriaxone Iron deficiency anemia She can eat today Pacemaker vision tomorrow nPo after midnight Holding Lasix DNR/DNI Attestations Medical Necessity Statement*: Pacemaker revision tomorrow Time Spent in Patient Care: 20mins Coding Level of Care Code Acute Manager Latin for g Fwd Diagnoses Pacemaker Z95.0 Atrial fibrillation I48.91 HTN (hypertension) I10
[2021-06-19] MEDS: pregabalin 75 mg Capsule 150 MG PO ×2 (13:23→21:26)
[2021-06-19] MEDS: HYDROcodone-acetaminophen 5-325 mg Tablet 1 TAB PO ×2 (13:24→21:29)
[2021-06-19] MEDS: iron sucrose 200 MG in sodium chloride 0.9% (100 ml) 100 ML 220 MG IV (13:24)
--- NOTE | 2021-06-19 15:51 | PC.NURSE ---
Report given to JOSE Todd.
[2021-06-19] MEDS: pantoprazole DR 40 mg Tablet PO (17:51)
[2021-06-19 18:15] LABS: Hematocrit 38.3 % (37.0-47.0); Hemoglobin 10.4 g/dL (11.5-15.3); Mean Corpuscular HGB Conc 27.2 g/dL (30.0-36.0); Mean Corpuscular Volume 92.1 fl (81-99); Mean Platelet Volume 11.8 fL (7.4-10.4); Platelet Count 194 10^3/cmm (130-400); Red Blood Count 4.16 10^6/uL (4.1-5.3); Red Cell Distribution Width 18.2 % (12.1-15.1); White Blood Count 7.5 10^3/uL (4.0-10.0)
[2021-06-19 18:25] LABS: INR 1.79 (0.8-1.2)
[2021-06-19] MEDS: sennosides-docusate Tablet 1 TAB PO (18:26)
[2021-06-19 18:54] LABS: Absolute Eosinophils 0.2 10^3/cmm (0.0-0.7); Absolute Neutrophil 5.4 10^3/cmm (1.4-6.5); Absolute Segmented Neutrophil 5.4 10/cmm (1.6-7.1); Eosinophils 3 %; Lymphocytes 23 %; Lymphocytes Absolute 1.7 10^3/cmm (1.2-3.4); Monocytes Absolute 0.2 10^3/cmm (0.1-0.6); Platelet Estimate Normal (Normal); Segmented Neutrophils 72 %; Total Cells Counted 100 (0-100)
--- NOTE | 2021-06-19 19:31 | PC.NURSE ---
Dr. Chase notified at this time of lab results. New orders received to repeat INR at 0500 as well as scheduling patient with dental laboratory supervisor for pacemaker placement at noon. Patient made of aware of new orders.
[2021-06-19] MEDS: ropinirole 2 mg Tablet PO (21:27)
[2021-06-19 23:08] LABS: Hematocrit 33.3 % (37.0-47.0); Hemoglobin 9.7 g/dL (11.5-15.3)
--- NOTE | 2021-06-19 23:15 | ECG_ITS ---
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 Measurements Intervals [place] Rate: 65 P: [place]: QRS: -69 QRSD: 184 T: 117 QT: 501 QTc: 522 Interpretive Statements ELECTRONIC VENTRICULAR PACEMAKER Compared to ECG 06/18/2021 20:09:30 No significant changes Electronically Signed On 06-20-2021 16:10:51 CDT by Romain Cadena M.D. [email or web address] at gulfportElegant Serviceacmc healthcare system [email or web address] Medical Devices/store/OM/[id number]
[2021-06-20] VITALS (16 sets, daily range): BP systolic 108–147; BP diastolic 68–90; PULSE 65–80; RESP 17–27; TEMP 36.4–36.6; O2SAT 90–99
--- NOTE | 2021-06-20 01:49 | PC.NURSE ---
Pt authorized and gave granddaughter Tammie Enriquez personal belongings consisting of gold wedding band, silver watch, and medical alert bracelet to take home for safe keeping before surgery. Witnessed by myself and Charge nurse
[2021-06-20 03:37] LABS: Basophils # 0.1 10^3/uL (0.0-0.1); Basophils % 1.2 %; Eosinophils # 0.1 10^3/uL (0.0-0.8); Hematocrit 34.4 % (37.0-47.0); Hemoglobin 9.9 g/dL (11.5-15.3); Lymphocytes # 1.3 10^3/uL (0.8-4.8); Mean Corpuscular HGB Conc 28.8 g/dL (30.0-36.0); Mean Corpuscular Hemoglobin 25.8 pg (28.0-34.0); Mean Corpuscular Volume 89.6 fl (81-99); Mean Platelet Volume 11.5 fL (7.4-10.4); Monocytes # 0.4 10^3/uL (0.2-0.9); Monocytes % 6.2 %; Neutrophils # 4.91 10^3/uL (1.8-7.7); Neutrophils % 70.7 %; Nucleated Red Blood Cells % 0 %; Platelet Count 170 10^3/cmm (130-400); Red Blood Count 3.84 10^6/uL (4.1-5.3); Red Cell Distribution Width 17.9 % (12.1-15.1); White Blood Count 6.9 10^3/uL (4.0-10.0)
[2021-06-20 03:56] LABS: Anion Gap 12.3 (5-19); Blood Urea Nitrogen 23 mg/dL (8-23); Carbon Dioxide 25 mmol/L (22-29); Chloride 107 mmol/L (98-107); Glucose 122 mg/dL (65-115); Osmolality Calculated 295 mOsm/kg (285-295); Potassium 4.3 mmol/L (3.5-5.1); Sodium 140 mmol/L (136-145)
[2021-06-20 04:11] LABS: INR 1.85 (0.8-1.2)
[2021-06-20 08:54] LABS: INR 1.92 (0.8-1.2)
--- NOTE | 2021-06-20 08:54 | P.PN_ITS ---
Subjective Subjective: Hemoglobin 9.9 today She has had no bowel movement since admission She received 2 unit PRBC on admission, 1 bag of iron yesterday, this could be related to iron deficiency anemia Vitals/I&O/Wt Last Vital Signs Temp 97.7 F 06/20/21 07:17 Pulse 65 06/20/21 07:17 Resp 18 06/20/21 07:17 BP 128/68 06/20/21 07:17 Pulse Ox 94 06/20/21 07:17 06/19/21 06/20/21 06/20/21 22:59 06:59 14:59 Intake Total 1000 / 1230 Output Total 50 / 250 Balance 1000 / 1030 -50 / 980 Weight last 48 hrs Weight 89.131 kg Weight 87 kg Weight 83.915 kg Physical Exam Narrative: Patient is doing well on room air, she is wearing nail tristanian, O2 saturation is not reliable No active increased work of breathing Paced rhythm No signs of fluid overload Abdomen is soft Very pleasant and cooperative No active bleeding Data : 06/20/21 03:11 06/20/21 03:11 Micro: Microbiology 06/18/21 20:30 Urine Culture - Preliminary Urine,Clean Catch Gram Negative Rods A&P Assessment and plan (1) Blood loss anemia: Status: Acute (2) Pacemaker at end of battery life: Status: Acute (3) HTN (hypertension): Status: Acute (4) Atrial fibrillation: Status: Acute Plan Pacemaker battery replacement today by Dr. Chase 1 no Patient is n.p.o. Her O2 saturation is not reliable, she has nail tristanian on, no active increased work of breathing She is doing well on room air at the time of my evaluation Removed 1 L nasal cannula this morning Paced rhythm, INR 1.9 she is not on Coumadin at this point Hemoglobin stable after 2 unit PRBC Received 1 bag of iron sucrose yesterday as well Iron deficiency anemia consistent with low ferritin, B12 normal We still waiting on 2 sample for FOBT She can finish work-up outpatient, hemodynamically stable, Plan for pacemaker battery replacement today Abnormal UA, she is not complaining of any UTI symptoms, avoid antibiotics at this point, urine culture has been obtained Attestations Medical Necessity Statement*: Planning for pacemaker battery placement today: We will discharge her tomorrow Time Spent in Patient Care: 30mins Coding Level of Care Code Acute Business Line Controller for Chg Fwd Diagnoses Blood loss anemia D50.0 Pacemaker at end of battery life Z45.010 HTN (hypertension) I10 Atrial fibrillation I48.91
[2021-06-20] MEDS: NON-FORMULARY MEDICATION (Lubiprostone [Amitiza] 24 mcg capsule) 24 EACH PO ×2 (09:08→17:06)
[2021-06-20] MEDS: pantoprazole DR 40 mg Tablet PO ×2 (09:08→17:05)
[2021-06-20] MEDS: sennosides-docusate Tablet 1 TAB PO ×2 (09:08→17:05)
--- NOTE | 2021-06-20 10:22 | PM.PN ---
Subjective Subjective: Patient seems to be doing okay as long as she lies down in the bed. As she tried to get up and move around, she gets extremely short of breath and dizzy.. No chest pain or palpitations. No syncopal episode. The vital signs seems to be remaining stable. Her hemoglobin also is fairly stable. Medications: Medication Review Details: Current Medications Acetaminophen (Acetaminophen 325 Mg Tablet) 650 mg PO Q6H PRN PRN Reason: Mild/Mod Pain Or Temp >/= 101 Hydrocodone Bitart/Acetaminophen (Hydrocodone-Acetaminophen 5-325 Mg Tablet) 1 tab PO Q4H PRN PRN Reason: Pain Last Admin: 06/19/21 21:29 Dose: 1 tab Documented by: Phytonadione 5 mg/ Sodium (Chloride) 50.5 mls @ 151.5 mls/hr IV ONCE ONE Stop: 06/20/21 10:49 Non-Formulary Medication (Lubiprostone [Amitiza]) 24 mcg PO BID [facility] Last Admin: 06/20/21 09:08 Dose: 24 mcg Documented by: Ondansetron HCl (Ondansetron 2 Mg/Ml Sdv 2 Ml) 4 mg IVP Q8H PRN PRN Reason: vomiting, or N/V if npo Last Admin: 06/19/21 09:47 Dose: 4 mg Documented by: Pantoprazole Sodium (Pantoprazole Dr 40 Mg Tablet) 40 mg PO BID [facility] Last Admin: 06/20/21 09:08 Dose: 40 mg Documented by: Pregabalin (Pregabalin 75 Mg Capsule) 150 mg PO 1200,2200 [facility] Last Admin: 06/19/21 21:26 Dose: 150 mg Documented by: Ropinirole HCl (Ropinirole 2 Mg Tablet) 2 mg PO BEDTIME [facility] Last Admin: 06/19/21 21:27 Dose: 2 mg Documented by: Senna/Docusate Sodium (Sennosides-Docusate Tablet) 1 tab PO BID [facility] Last Admin: 06/20/21 09:08 Dose: 1 tab Documented by: Vitals/I&O/Wt Last Vital Signs Temp 97.7 F 06/20/21 07:17 Pulse 65 06/20/21 07:17 Resp 18 06/20/21 07:17 BP 128/68 06/20/21 07:17 Pulse Ox 94 06/20/21 07:17 06/19/21 06/20/21 06/20/21 22:59 06:59 14:59 Intake Total 1000 / 1230 Output Total 50 / 250 100 / 100 Balance 1000 / 1030 -50 / 980 -100 / -100 Weight last 48 hrs Weight 196 lb 8 oz Weight 191 lb 12.835 oz Weight 185 lb Physical Exam Narrative: GENERAL: The patient is alert and oriented times three. Not in any acute distress. HEENT: Minimal pallor. No icterus or lymphadenopathy. The pupils are reactant to light. Oral cavity: There are no mucous membrane lesions. NECK: Trachea appears to be central. No masses noted. No JVD or thyromegaly appreciated. No carotid bruit. RESPIRATORY: Chest is symmetrical. No intercostals muscle retraction or any accessory muscle activation. There is no chest wall tenderness. Breath sounds are heard bilaterally. No rales or rhonchi heard. No evidence of any consolidation. Her systolic murmur in the left sternal border. No diastolic murmurs. The pacemaker site has minimal keloid but no signs of infection. BREASTS: Deferred. HEART: The heart sounds are normal. No S3 or S4 ABDOMEN: No vessel pulsations or distention. No tenderness. No organomegaly appreciated. No abdominal bruit. Bowel sounds are normally heard. : Deferred. RECTAL: Deferred. LYMPHATIC: No lymphadenopathy noted in the neck or groin. EXTREMITIES: No edema or cyanosis. No clubbing. Peripheral pulses are palpable but weak bilaterally. MUSCULOSKELETAL: Gait is normal. There is no joint deformity or swelling noted. No joint tenderness or any effusion. The shoulder and hip joints appear to have normal range of motion. SKIN: There are no significant scars or skin rash noted. NEUROPSYCHIATRIC: The patient is alert and oriented x3. Appears to be in a good mood. The higher functions are grossly within normal limits. No tremors or rigidity noted. Data : 06/20/21 03:11 06/20/21 03:11 Micro: Microbiology 06/18/21 20:30 Urine Culture - Preliminary Urine,Clean Catch Gram Negative Rods A&P Assessment and plan (1) Pacemaker at end of battery life: Patient requires a pacemaker revision for further management of her condition. This need to be done as early as possible because of the patient's symptoms and pacemaker dependency Status: Acute (2) Atrial fibrillation: The INR is elevated-1.9 today. The reason the right INR is going up is no clear at this time. Status: Acute (3) HTN (hypertension): The blood pressure seems to be under control. May continue on the current medication. Status: Acute (4) Blood loss anemia: The etiology of the blood loss is not clear. Patient requires further work-up. Her hemoglobin seems to be stable. Does not look like any active bleeding. Status: Acute Plan In view of the patient's symptoms with pacemaker dependence and low heart rate, the pacemaker revision needs to be done as early as possible. According to the patient, she do not want to go home with the symptoms, because she won't be able to get up and move around . I discussed with Dr. Garrison about the patient's current condition and the treatment options. Since INR is going up, it was thought to be appropriate to go ahead and give her some fresh frozen plasma and do the pacemaker revision as soon as possible. This was discussed with the patient also in detail which she understood well. We may go ahead and plan to have the procedure done early this afternoon. Attestations Medical Necessity Statement*: Patient requires continued hospital stay for close monitoring and further management Coding Level of Care Code Acute Wood Crew Supervisor for g Fwd History Detailed Exam Detailed Medical Decision Making Moderate Complexity Diagnoses Pacemaker at end of battery life Z45.010 Atrial fibrillation I48.91 HTN (hypertension) I10 Blood loss anemia D50.0
[2021-06-20] MEDS: phytonadione (ADULT) 5 MG in sodium chloride 0.9% 50 ML 151.5 MG IV (11:37)
[2021-06-20] MEDS: pregabalin 75 mg Capsule 150 MG PO ×2 (12:21→19:23)
--- NOTE | 2021-06-20 13:04 | W.PM.OPSUD ---
Surgery/Procedure H&P Update DATE OF PROCEDURE: June 20, 2021 DATE H&P PERFORMED: 06/19/21 H&P UPDATE INFORMATION: I have reviewed H&P completed within last 30 days, I have examined patient prior to procedure and No changes to prior documentation PREOP DIAGNOSIS: Symptomatic pacemaker SOLA PLANNED PROCEDURE: Operation Date: 06/20/21 12:00 Proposed Procedures Pacemaker revision (Left) - Judy Chase MD PATIENT REASSESSED PRIOR TO SEDATION, WITH NO CHANGE NOTED: Yes PHYSICAL EXAM: alert, oriented x 3, clear to auscultation bilaterally and regular rate & rhythm AIRWAY EVAL/ANESTHESIA PLAN: normal airway, see other exam findings, ASA II, Monitored Anesthesia, Local Anesthesia and Risks, benefits & alternatives of sedation and/or procedure discussed
--- NOTE | 2021-06-20 14:47 | P.OP_ITS ---
Operative Report Date of procedure: June 20, 2021 Pre-op diagnosis: Preop Diagnosis Symptomatic pacemaker SOLA Brief History: 81-year-old white female with a history of chronic atrial fibrillation, status post AV mian ablation, pacemaker dependent, was found to be in SOLA, when she presented with complaints of shortness of breath/weakness and dizziness. Her lower heart rate was set for 80 which went down to 65 with SOLA. She is very symptomatic with a rate of 65/min. For further management of her condition, she required a pacemaker revision. Procedure: PROCEDURE: PACEMAKER REVISION PREOPERATIVE DIAGNOSIS: Pacemaker elective replacement indication. POSTOPERATIVE DIAGNOSIS: Pacemaker elective replacement indication. ESTIMATED BLOOD LOSS: Around 10 milliliters. COMPLICATIONS: None. BRIEF HISTORY: The patient is 81-year-old white female who had a permanent pacemaker implantation for /atrial fibrillation, status post AV mian ablation. The patient was found to have elective replacement indication,when she presented with complaints of shortness of breath, weakness and dizziness.. For further management of the patient's condition for the symptomatic bradycardia, the patient required a pacemaker revision. The procedure was explained to the patient and her in detail with the risks and benefits. The risks of bleeding, hematoma, vascular injury, infection and other concomitant complications were explained in detail, which the patient understood well and consented to proceed. PROCEDURES PERFORMED: 1. Explantation of the old pacemaker generator. 2. Implantation of the new generator. The patient brought to the Cardiac Internet Webmaster. The left side of the neck and the subclavian area were cleaned and draped in a sterile fashion. 1% Xylocaine was used for local anesthetic agent. A 2 inch long incision was made just below the previous pacemaker scar. By sharp and blunt dissection, the pacemaker pocket was accessed. The old generator was delivered from the pocket. The generator was detached from the lead. The new Medtronic generator was attached to the lead. The pacemaker pocket was copiously irrigated with vancomycin solution. Complete hemostasis was achieved. The lead was positioned behind the generator and the generator was attached to the pectoralis fascia by suturing with 0 Surgilon. Sponge counts were confirmed. The pacemaker pocket was closed in layers. Skin was approximated using 4-0 Vicryl. EXPLANTED DEVICE: Pacemaker Generator: Brand: Sensia. Model number: [id number] Serial number: [id number] [employer]: Medtronic. Date of implant: 11/13/2013 IMPLANTED DEVICES: Ventricular Lead: Date of implantation: 08/24/2006 Model number:[id number] Serial number:[id number] Make: Medtronic. Implanted Generator: Date of implantation : 06/20/2021 Brand: TiVUS XT SR MRI SureScan Model number:[id number] Serial number:[id number] Make: Medtronic Stimulation Threshold: The ventricular sensing was not obtained because of the dependency. Lead impedance was 456 ohms and the pacing threshold was 0.75 volts at 0.4 milliseconds. The pacemaker was set for VVIR mode with an upper rate of 130 and a lower rate of 80. A pressure dressing was applied over the pacemaker site. The patient was transferred back to medical floor in stable condition. Sponge counts were correct.
[2021-06-20] MEDS: HYDROcodone-acetaminophen 5-325 mg Tablet 1 TAB PO ×2 (15:17→21:06)
[2021-06-20] MEDS: vancomycin 1,000 MG in sodium chloride 0.9% 250 ML 250 MG IV (15:27)
[2021-06-20 15:45] LABS: INR 1.56 (0.8-1.2)
--- NOTE | 2021-06-20 16:25 | PC.NURSE ---
return from cardiac cath lab radiology technician s/p pacemaker revision at 1420.report received.left upper chest large bulky pressure drsg is dry and intact.left arm immobilizer is on.pt is drowsy but easily awakened.vss.v-paced at 80 bpm
--- NOTE | 2021-06-20 16:32 | ECG_ITS ---
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 Measurements Intervals [place] Rate: 80 P: TN: QRS: -68 QRSD: 186 T: 118 QT: 474 QTc: 547 Interpretive Statements ELECTRONIC VENTRICULAR PACEMAKER Compared to ECG 06/19/2021 23:45:05 No significant changes Electronically Signed On 06-20-2021 22:45:24 CDT by Romain Cadena M.D. [id number]
[2021-06-20] MEDS: ropinirole 2 mg Tablet PO (19:23)
[2021-06-21] VITALS (12 sets, daily range): BP systolic 123–166; BP diastolic 75–103; PULSE 80; RESP 15–30; TEMP 36.6–37; O2SAT 90–98
[2021-06-21] MEDS: vancomycin 1,000 MG in sodium chloride 0.9% 250 ML 250 MG IV (02:55)
[2021-06-21 05:18] LABS: Basophils # 0.1 10^3/uL (0.0-0.1); Basophils % 0.8 %; Eosinophils # 0.2 10^3/uL (0.0-0.8); Eosinophils % 2.8 %; Lymphocytes # 1.4 10^3/uL (0.8-4.8); Lymphocytes % 22.3 %; Mean Corpuscular HGB Conc 28.1 g/dL (30.0-36.0); Mean Corpuscular Hemoglobin 25.1 pg (28.0-34.0); Mean Corpuscular Volume 89.4 fl (81-99); Mean Platelet Volume 11.5 fL (7.4-10.4); Monocytes # 0.5 10^3/uL (0.2-0.9); Monocytes % 8.2 %; Neutrophils % 65.2 %; Nucleated Red Blood Cells % 0.3 %; Platelet Count 152 10^3/cmm (130-400); Red Blood Count 3.58 10^6/uL (4.1-5.3); Red Cell Distribution Width 17.6 % (12.1-15.1); White Blood Count 6.1 10^3/uL (4.0-10.0)
[2021-06-21 05:38] LABS: Alanine Aminotransferase 9 U/L (0-33); Albumin Level 3.6 g/dL (3.5-5.2); Alkaline Phosphatase 146 IU/L (35-105); Anion Gap 11.3 (5-19); Aspartate Amino Transferase 32 U/L (0-32); Blood Urea Nitrogen 17 mg/dL (8-23); Calcium 8.9 mg/dL (8.5-10.5); Carbon Dioxide 26 mmol/L (22-29); Chloride 108 mmol/L (98-107); Glucose 109 mg/dL (65-115); Osmolality Calculated 294 mOsm/kg (285-295); Potassium 4.3 mmol/L (3.5-5.1); Sodium 141 mmol/L (136-145); Total Bilirubin 0.3 mg/dL (0.15-1.2); Total Protein 6.6 g/dL (6.6-8.7)
[2021-06-21] MEDS: sennosides-docusate Tablet 1 TAB PO (09:30)
[2021-06-21] MEDS: pantoprazole DR 40 mg Tablet PO (09:30)
[2021-06-21] MEDS: NON-FORMULARY MEDICATION (Lubiprostone [Amitiza] 24 mcg capsule) 24 EACH PO ×2 (09:33→17:34)
[2021-06-21] MEDS: FUROsemide 10 mg/mL SDV 4mL 40 MG IVP (10:10)
[2021-06-21] MEDS: nystatin 100,000 unit/mL UDC 5 mL 500000 UNIT PO ×4 (10:10→19:36)
[2021-06-21] MEDS: potassium chloride ER 10 mEq Tablet PO (10:11)
[2021-06-21] MEDS: polyethylene glycol 3350 Pkt 17 gm PO (10:30)
[2021-06-21 10:46] LABS: Hematocrit 33.6 % (37.0-47.0); Hemoglobin 9.4 g/dL (11.5-15.3)
[2021-06-21] MEDS: sennosides-docusate Tablet 2 TAB PO ×2 (10:49→17:33)
--- NOTE | 2021-06-21 10:54 | PC.SOCIAL ---
IMM update IMM updated with patient. Verbalized an understanding. Copy Pg 2 provided. Initialled, dated, timed, and placed in chart.
--- NOTE | 2021-06-21 12:01 | P.PN_ITS ---
Subjective Subjective: Patient is sitting in a chair Awake and alert I did not appreciate any confusion that was reported by nursing staff Nonfocal neuro exam She is able to name name of her , date of , she is awake alert and oriented No bowel movement yet, will give her extra dose of senna S added MiraLAX Vancomycin discontinued, creatinine improved, add doxycycline for UTI and surgical site prophylactic regimen Nasal cannula has been turned off this morning, she is saturating well on room air, asked nurse to remove nail mauritian from her left index finger Blood pressure is stable Repeat H&H is 9.4 Vitals/I&O/Wt Last Vital Signs Temp 97.9 F 06/21/21 07:52 Pulse 80 06/21/21 07:52 Resp 18 06/21/21 07:52 BP 123/78 06/21/21 07:52 Pulse Ox 98 06/21/21 07:52 06/20/21 06/21/21 06/21/21 22:59 06:59 14:59 Intake Total 490 / 851.5 250 / 1101.5 Output Total 0 / 100 250 / 350 550 / 550 Balance 490 / 751.5 0 / 751.5 -550 / -550 Weight last 48 hrs Weight 90.855 kg Weight 89.131 kg Physical Exam Narrative: Pleasant cooperative for sitting in a chair Saturating well on room air I have turned off oxygen She is wearing a mauritian which will be removed today S1, S2 Abdomen is soft No signs of hypervolemia EOMI, PERRLA She is not confused Awake and alert oriented x3 GCS 15 at the bedside Data : 06/21/21 10:30 06/21/21 04:55 Micro: Microbiology 06/18/21 20:30 Urine Culture - Final Urine,Clean Catch Escherichia coli A&P Assessment and plan (1) Blood loss anemia: Status: Acute (2) Pacemaker at end of battery life: Status: Acute (3) Onychodystrophy: Status: Acute (4) Atrial fibrillation: Status: Acute (5) HTN (hypertension): Status: Acute (6) UTI (urinary tract infection): Status: Acute (7) ANI (acute kidney injury): Status: Acute Plan pacemaker battery replacement by Dr. Chase, surgical site antibiotic prophylaxis which she will need for at least 4 to 5 days discontinue vancomycin and add doxycycline UTI however she does not have any active symptoms, she is not showing any signs of confusion, doxycycline will cover her E. coli UTI as well ANI related to dehydration improved creatinine today 1.0 Normocytic acute on chronic anemia, we still waiting on FOBT, no any other site of bleeding noted, she was given 1 unit of FFP and vitamin K yesterday for the procedure, will give her extra dose of senna S, MiraLAX, We will go ahead and update Dr. Martinez for possible endoscopy in order to decide about Coumadin continuation Status post 2 unit PRBC and 1 bag of iron sucrose on 06/19 A. fib without RVR, patient is pacemaker dependent Patient is not requiring oxygen she has nail mauritian on which was given this along reading, she is saturating well on room air, updated nurse Oral thrush concern, she has been started nystatin however I do not see any signs of oral thrush on my physical exam Dysphagia to solid food, EGD Opioids to be avoided, use tramadol History of IBS continue Amitiza DNR/DNI Cardiac diet We will keep her n.p.o. in case we need endoscopy on Wednesday Attestations Medical Necessity Statement*: Might need endoscopy Time Spent in Patient Care: 40mins Coding Level of Care Code Acute Facilities Maintenance Assistant for Chg Fwd Diagnoses Blood loss anemia D50.0 Pacemaker at end of battery life Z45.010 Onychodystrophy L60.3 Atrial fibrillation I48.91 HTN (hypertension) I10 UTI (urinary tract infection) N39.0 ANI (acute kidney injury) N17.9
[2021-06-21] MEDS: doxycycline 100 mg Tablet PO ×2 (12:10→17:33)
[2021-06-21] MEDS: pregabalin 75 mg Capsule 150 MG PO ×2 (12:10→19:33)
--- NOTE | 2021-06-21 16:33 | P.CONIM_ITS ---
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 The anemia was detected as part of a preoperative work-up for pacemaker change. She was noted to have a hemoglobin of 7.9. She was also noted to have low iron levels. She has a history of being on Coumadin for atrial fibrillation. She had no known sources of bleeding. She had not noticed any melena or hematochezia. She denies any recent surgeries. She was given 2 units of blood prior to having her pacemaker placed. Her hemoglobin increased to 9.7. She was also given fresh frozen plasma prior to her pacemaker placement and her INR was down to 1.5 6 yesterday. She has not received any new blood thinners since that time. Review of Systems General: Reports: 10 or more systems reviewed and unremarkable except in HPI and below Const: Denies: fever(s) Card: Denies: chest pain or irregular heart rhythm Resp: Denies: dyspnea Medications/Allergies Home Medications Medication Instructions Recorded Confirmed Last Taken Type albuterol sulfate 90 mcg/actuation 2 puff INHALATION Q6H PRN 05/16/19 06/18/21 03/11/21 History aerosol inhaler (ProAir HFA) aspirin 81 mg tablet,delayed 81 mg PO BEDTIME 05/16/19 06/18/21 06/17/21 History release (Adult Low Dose Aspirin) eszopiclone 2 mg tablet (Lunesta) 2 mg PO BEDTIME 05/16/19 06/18/21 06/17/21 History hydrocodone 5 mg-acetaminophen 325 1 tab PO BID PRN 05/16/19 06/18/21 06/18/21 History mg tablet lubiprostone 24 mcg capsule 24 mcg PO BID 05/16/19 06/18/21 06/18/21 History (Amitiza) multivitamin 1 tab PO DAILY 05/16/19 06/18/21 06/18/21 History ropinirole 2 mg tablet 2 mg PO BEDTIME 10/11/20 06/18/21 06/17/21 History warfarin 2.5 mg tablet See Rx Instructions .ROUTE 10/11/20 06/18/21 06/17/21 History .COMPLEX tab budesonide 160 mcg-glycopyr 9 2 inh INHALATION DAILY 02/13/21 06/18/21 06/18/21 History mcg-formot 4.8 mcg/actuation HFA inhaler (Breztri Aerosphere) mupirocin 2 % topical ointment 1 applic TOPICAL BID 14 Days #22 g 02/13/21 06/18/21 03/11/21 Rx calcium carbonate 600 mg-vitamin 1 cap PO DAILY 02/14/21 06/18/21 06/18/21 History D3 12.5 mcg (500 unit) capsule (Calcium 600 with Vitamin D3) lansoprazole 30 mg capsule,delayed 30 mg PO BID #180 cap 04/29/21 06/18/21 0 06/18/21 Rx release (Prevacid) amlodipine 5 mg tablet 2.5 mg PO BEDTIME tab 06/17/21 06/18/21 06/17/21 History metoprolol succinate 50 mg See Rx Instructions .ROUTE 06/17/21 06/18/21 06/18/21 History tablet,extended release 24 hr .COMPLEX tab eszopiclone 2 mg tablet (Lunesta) 2 mg PO BEDTIME 06/18/21 06/19/21 Unknown History furosemide 20 mg tablet (Lasix) See Rx Instructions .ROUTE .COMPLEX 06/18/21 06/18/21 06/17/21 History hydrocodone 5 mg-acetaminophen 325 1 tab PO Q4H PRN 06/18/21 06/19/21 Unknown History mg tablet losartan 50 mg tablet 50 mg PO BEDTIME 06/18/21 06/18/21 06/17/21 History potassium chloride 10 mEq See Rx Instructions .ROUTE .COMPLEX 06/18/21 06/18/21 06/17/21 History tablet,extended release pregabalin 150 mg capsule 150 mg PO BID 06/18/21 06/18/21 06/18/21 History sennosides 8.6 mg tablet (senna) See Rx Instructions .ROUTE .COMPLEX 06/18/21 06/18/21 06/18/21 History vit C 250 mg-vit E 90 mg-zinc 40 1 tab PO BID 06/18/21 06/18/21 06/18/21 History mg-copper 1 [id number] capsule (PreserVision AREDS-2) Allergies Allergy/AdvReac Type Severity Reaction Status Date / Time atropine Allergy Unknown Unknown Verified 06/17/21 14:00 benztropine Allergy Unknown Unknown Verified 06/17/21 14:00 cefadroxil [From Duricef] Allergy Unknown Unknown Verified 06/17/21 14:00 cimetidine Allergy Unknown Unknown Verified 06/17/21 14:00 enalapril Allergy Unknown Unknown Verified 06/17/21 14:00 enalaprilat [From Vasotec] Allergy Unknown Unknown Verified 06/17/21 14:00 gabapentin Allergy Unknown Unknown Verified 06/17/21 14:00 Sulfa (Sulfonamide Allergy Unknown Unknown Verified 06/17/21 14:00 Antibiotics) zolpidem [From Ambien] Allergy Unknown Unknown Verified 06/17/21 14:00 tramadol Allergy ADR-Itching Verified 06/21/21 12:13 Current Medications Generic Name Dose Route Start Last Admin Trade Name Freq PRN Reason Stop Dose Admin Doxycycline Monohydrate 100 mg 06/21/21 11:55 06/21/21 12:10 Doxycycline 100 Mg Tablet PO 100 mg BID KACEY Administration Protocol Non-Formulary Medication 24 mcg 06/19/21 09:00 06/21/21 09:33 Lubiprostone [Amitiza] PO 24 mcg BID KACEY Administration Nystatin 500,000 unit 06/21/21 09:40 06/21/21 14:04 Nystatin 100,000 Unit/Ml Udc 5 Ml PO 500,000 unit QID KACEY Administration Ondansetron HCl 4 mg 06/18/21 22:01 06/19/21 09:47 Ondansetron 2 Mg/Ml Sdv 2 Ml IVP 4 mg Q8H PRN Administration vomiting, or N/V if npo Pregabalin 150 mg 06/19/21 12:00 06/21/21 12:10 Pregabalin 75 Mg Capsule PO 150 mg 1200,2200 KACEY Administration Ropinirole HCl 2 mg 06/19/21 21:00 06/20/21 19:23 Ropinirole 2 Mg Tablet PO 2 mg BEDTIME KACEY Administration Senna/Docusate Sodium 2 tab 06/21/21 10:47 06/21/21 10:49 Sennosides-Docusate Tablet PO 2 tab BID KACEY Administration PFSH Acute PFSH: Medical History Atrial fibrillation CAD (coronary artery disease) Diastolic heart failure GERD (gastroesophageal reflux disease) HTN (hypertension) Osteoarthritis Pacemaker Varicose veins of left lower extremity with other complications Surgical History Previous back surgery S/P cardiac pacemaker procedure S/P cataract extraction S/P hysterectomy S/P rotator cuff repair *DELETE* S/P tubal ligation Family History Father , [place] age 44 Myocardial infarction Social History Smoking and tobacco status: never smoked History of recent travel: No Vitals/I&O/Wt Last Vital Signs Temp 98.3 F 06/21/21 13:56 Pulse 80 06/21/21 13:56 Resp 16 06/21/21 13:56 BP 155/103 06/21/21 13:56 Pulse Ox 95 06/21/21 13:56 06/21/21 06/21/21 06/21/21 06:59 14:59 22:59 Intake Total 250 / 1101.5 240 / 240 Output Total 250 / 350 830 / 830 400 / 1230 Balance 0 / 751.5 -590 / -590 -400 / -990 Weight last 48 hrs Weight 200 lb 4.8 oz Weight 196 lb 8 oz Physical Exam Const: COMMON NORMALS: no acute distress and patient oriented x3 GENERAL A PPEARANCE: cooperative, comfortable and well developed HENMT: COMMON NORMALS: normocephalic and moist oral mucous membranes HEAD & SCALP: normocephalic Chest: COMMONS NORMALS: normal inspection of the chest Resp: COMMON NORMALS: normal respiratory effort and clear to auscultation bilaterally AUSCULTATION: clear to auscultation bilaterally Cardio: COMMON NORMALS: regular rate, regular rhythm, No gallops present (Car stephanie), No murmurs present (Cardio) and No rub (Cardio) RATE: regular rate RHYTHM: regular rhythm Extremity: COMMON NORMALS: normal to inspection Neuro: COMMON NORMALS: patient oriented x3 and no focal motor deficits Skin: COMMON NORMALS: no rashes or lesions noted GENERAL SKIN EXAM: no rashes or lesions noted Data : 06/21/21 10:30 06/21/21 04:55 Micro: Microbiology 06/18/21 20:30 Urine Culture - Final Urine,Clean Catch Escherichia coli A&P Assessment and plan (1) Blood loss anemia: Since the patient would benefit from being on a blood thinner, the upper GI tract needs to be evaluated to be sure that there is not an ulcer or other obvious source of bleeding. I discussed the risks of the procedure with the patient including the risk of bleeding, perforation, and sedation. We also discussed the option of not doing the procedure at all, but made her aware that that would make it difficult for her doctors to make decisions regarding her blood thinners. She has no further questions and wishes to proceed. We will make her n.p.o. after midnight. We tentatively will plan on performing the procedure at 8:00 in the morning. Status: Acute (2) Atrial fibrillation: Status: Acute Consult Attestations Medical Necessity Statement: Per Internal Medicine team. Coding Level of Care Code Acute Deckhand Maintenance for Arturo Granados Diagnoses Blood loss anemia D50.0 Atrial fibrillation I48.91
--- NOTE | 2021-06-21 18:43 | PM.PN ---
Subjective Subjective: Patient is feeling okay. Status post pacemaker revision. Has no hematoma bleeding at the pacemaker insertion site. Hemoglobin seems to be dropping Medications: Medication Review Details: Current Medications Acetaminophen (Acetaminophen 325 Mg Tablet) 650 mg PO Q6H PRN PRN Reason: Mild/Mod Pain Or Temp >/= 101 Hydrocodone Bitart/Acetaminophen (Hydrocodone-Acetaminophen 5-325 Mg Tablet) 1 tab PO Q4H PRN PRN Reason: MODERATE PAIN Amlodipine Besylate (Amlodipine 5 Mg Tablet) 2.5 mg PO BEDTIME ON LICENSE OF [facility] Doxycycline Monohydrate (Doxycycline 100 Mg Tablet) 100 mg PO BID ON LICENSE OF [facility]; Protocol Last Admin: 06/21/21 17:33 Dose: 100 mg Documented by: Losartan Potassium (Losartan 50 Mg Tablet) 50 mg PO BEDTIME ON LICENSE OF [facility] Metoprolol Succinate (Metoprolol Succinate Er (24 Hr) 100 Mg Tablet) 100 mg PO DAILY ON LICENSE OF [facility] Metoprolol Succinate (Metoprolol Succinate Er (24 Hr) 50 Mg Tablet) 50 mg PO BEDTIME ON LICENSE OF [facility] Non-Formulary Medication (Lubiprostone [Amitiza]) 24 mcg PO BID ON LICENSE OF [facility] Last Admin: 06/21/21 17:34 Dose: 24 mcg Documented by: Lansoprazole( (Prevacid)) 1 each PO BID ON LICENSE OF [facility] Last Admin: 06/21/21 17:34 Dose: 1 each Documented by: Nystatin (Nystatin 100,000 Unit/Ml Udc 5 Ml) 500,000 unit PO QID ON LICENSE OF [facility] Last Admin: 06/21/21 17:35 Dose: 500,000 unit Documented by: Ondansetron HCl (Ondansetron 2 Mg/Ml Sdv 2 Ml) 4 mg IVP Q8H PRN PRN Reason: vomiting, or N/V if npo Last Admin: 06/19/21 09:47 Dose: 4 mg Documented by: Pregabalin (Pregabalin 75 Mg Capsule) 150 mg PO 1200,2200 ON LICENSE OF [facility] Last Admin: 06/21/21 12:10 Dose: 150 mg Documented by: Ropinirole HCl (Ropinirole 2 Mg Tablet) 2 mg PO BEDTIME ON LICENSE OF [facility] Last Admin: 06/20/21 19:23 Dose: 2 mg Documented by: Senna/Docusate Sodium (Sennosides-Docusate Tablet) 2 tab PO BID ON LICENSE OF [facility] Last Admin: 06/21/21 17:33 Dose: 2 tab Documented by: Vitals/I&O/Wt Last Vital Signs Temp 98.3 F 06/21/21 13:56 Pulse 80 06/21/21 16:00 Resp 23 H 06/21/21 16:00 BP 159/100 06/21/21 16:00 Pulse Ox 95 06/21/21 16:00 06/21/21 06/21/21 06/21/21 06:59 14:59 22:59 Intake Total 250 / 1101.5 240 / 240 360 / 600 Output Total 250 / 350 830 / 830 400 / 1230 Balance 0 / 751.5 -590 / -590 -40 / -630 Weight last 48 hrs Weight 200 lb 4.8 oz Weight 196 lb 8 oz Physical Exam Narrative: GENERAL: The patient is alert and oriented times three. Not in any acute distress. HEENT: Minimal pallor. No icterus or lymphadenopathy. Oral cavity: There are no mucous membrane lesions. NECK: Trachea appears to be central. No masses noted. No JVD or thyromegaly appreciated. No carotid bruit. RESPIRATORY: Chest is symmetrical. No intercostals muscle retraction or any accessory muscle activation. There is no chest wall tenderness. Breath sounds are heard bilaterally. No rales or rhonchi heard. No evidence of any consolidation. Her systolic murmur in the left sternal border. No diastolic murmurs. Pacemaker site has no hematoma bleeding. BREASTS: Deferred. HEART: The heart sounds are normal. No S3 or S4 ABDOMEN: No vessel pulsations or distention. No tenderness. No organomegaly appreciated. No abdominal bruit. Bowel sounds are normally heard. : Deferred. RECTAL: Deferred. LYMPHATIC: No lymphadenopathy noted in the neck or groin. EXTREMITIES: No edema or cyanosis. No clubbing. Peripheral pulses are palpable but weak bilaterally. MUSCULOSKELETAL: Gait is normal. There is no joint deformity or swelling noted. No joint tenderness or any effusion. The shoulder and hip joints appear to have normal range of motion. SKIN: There are no significant scars or skin rash noted. NEUROPSYCHIATRIC: The patient is alert and oriented x3. Appears to be in a good mood. The higher functions are grossly within normal limits. No tremors or rigidity noted. Data : 06/21/21 10:30 06/21/21 04:55 Micro: Microbiology 06/18/21 20:30 Urine Culture - Final Urine,Clean Catch Escherichia coli A&P Assessment and plan (1) Pacemaker at end of battery life: Status post pacemaker revision. Pacemaker function seems to be appropriate. Lower rate is set at 80/min. Patient has significant improvement of her symptoms. Status: Acute (2) Atrial fibrillation: Consider restarting the Coumadin after the endoscopy, if appropriate. Status: Acute (3) HTN (hypertension): Currently the blood pressure stage II. I may go ahead and start her on amlodipine 5 mg now and daily Status: Acute (4) Blood loss anemia: GI work-up in progress Status: Acute Plan GI work-up as per Dr. Garrison. 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
[2021-06-21] MEDS: losartan 50 mg Tablet PO (19:33)
[2021-06-21] MEDS: amlodipine 5 mg Tablet 2.5 MG PO (19:35)
[2021-06-21] MEDS: metoprolol succinate ER (24 HR) 50 mg Tablet PO (19:36)
[2021-06-21] MEDS: ropinirole 2 mg Tablet PO (19:36)
--- NOTE | 2021-06-21 19:48 | PC.NURSE ---
Received report from JOSE Fairbanks. Patient resting in bed talking on phone. Patient requesting to have her BP medciations now due to elevated BP . BP currently is 155/77. Patient requesting pain medication at bedtime. Chronic use to hydrocodone. Still no BM at this time. Instructed patient regarding hydrocodone. Patient verbalized understanding but needs reinforcement. Will continue to monitor.
[2021-06-21] MEDS: HYDROcodone-acetaminophen 5-325 mg Tablet 1 TAB PO (22:01)
[2021-06-22] VITALS (28 sets, daily range): BP systolic 115–179; BP diastolic 62–117; PULSE 79–81; RESP 18–35; TEMP 36.6–36.7; O2SAT 90–94
[2021-06-22 05:57] LABS: Basophils # 0.1 10^3/uL (0.0-0.1); Basophils % 0.9 %; Eosinophils # 0.1 10^3/uL (0.0-0.8); Eosinophils % 1.5 %; Hematocrit 33.3 % (37.0-47.0); Hemoglobin 9.1 g/dL (11.5-15.3); Lymphocytes # 1.5 10^3/uL (0.8-4.8); Lymphocytes % 22.3 %; Mean Corpuscular HGB Conc 27.3 g/dL (30.0-36.0); Mean Corpuscular Hemoglobin 25.2 pg (28.0-34.0); Mean Corpuscular Volume 92.2 fl (81-99); Mean Platelet Volume 12.6 fL (7.4-10.4); Monocytes # 0.6 10^3/uL (0.2-0.9); Monocytes % 8.5 %; Neutrophils # 4.35 10^3/uL (1.8-7.7); Neutrophils % 66.3 %; Nucleated Red Blood Cells % 0 %; Platelet Count 104 10^3/cmm (130-400); Red Blood Count 3.61 10^6/uL (4.1-5.3); White Blood Count 6.6 10^3/uL (4.0-10.0)
[2021-06-22 06:16] LABS: Blood Urea Nitrogen 16 mg/dL (8-23); Calcium 9.2 mg/dL (8.5-10.5); Carbon Dioxide 26 mmol/L (22-29); Chloride 105 mmol/L (98-107); Glucose 116 mg/dL (65-115); Osmolality Calculated 294 mOsm/kg (285-295); Sodium 141 mmol/L (136-145)
[2021-06-22] MEDS: sodium chloride 0.9% 1,000 ML 30 ML IV (07:34)
--- NOTE | 2021-06-22 07:52 | ANES.PREANE2 ---
Pre-Anesthetic Assessment Height/Weight: Height 1.52 m Weight 90.9 kg Temp Pulse Resp BP Pulse Ox 98.1 F 80 18 168/115 91 06/22/21 07:32 06/22/21 07:32 06/22/21 07:32 06/22/21 07:32 06/22/21 07:32 Preop Diagnosis: Symptomatic pacemaker SOLA Operation Date: 06/20/21 12:00 Proposed Procedures p Pacemaker Insertion(Left) - Judy Chase MD Operation Date: 06/22/21 08:00 Proposed Procedures p Esophagogast rodudenoscopy with possible biopsy(Not Applicable) - Joel Lane MD Familial anesthetic complications: none Was Beta Isidoro taken within 24 hours: Yes Was Clonidine taken within 24 hours: N/A Last intake: 2299 Last Intake: 23:00 Social Tobacco Exam alert, oriented x 3, clear to auscultation bilaterally and regular rate & rhythm Airway Submandibular: within normal limits Cervical ROM: within normal limits Mallampati: Class II Pulmonary Asthma, Exertional Dyspnea and Shortness of Breath CV/HEM Atrial Fibrillation, Arrythmia (PPM), Hypertension and Murmur (systolic) None reported Hepatic None reported GI Gastroesophageal Reflux Disease Metabolic None reported Neuropsych 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) Medications/Allergies Home Medications Medication Instructions Recorded Confirmed Last Taken Type albuterol sulfate 90 mcg/actuation 2 puff INHALATION Q6H PRN 05/16/19 06/18/21 03/11/21 History aerosol inhaler (ProAir HFA) aspirin 81 mg tablet,delayed 81 mg PO BEDTIME 05/16/19 06/18/21 06/17/21 History release (Adult Low Dose Aspirin) eszopiclone 2 mg tablet (Lunesta) 2 mg PO BEDTIME 05/16/19 06/18/21 06/17/21 History hydrocodone 5 mg-acetaminophen 325 1 tab PO BID PRN 05/16/19 06/18/21 06/18/21 History mg tablet lubiprostone 24 mcg capsule 24 mcg PO BID 05/16/19 06/18/21 06/18/21 History (Amitiza) multivitamin 1 tab PO DAILY 05/16/19 06/18/21 06/18/21 History ropinirole 2 mg tablet 2 mg PO BEDTIME 10/11/20 06/18/2106/17/22 History warfarin 2.5 mg tablet See Rx Instructions .ROUTE 10/11/20 06/18/21 06/17/21 History .COMPLEX tab budesonide 160 mcg-glycopyr 9 2 inh INHALATION DAILY 02/13/21 06/18/21 06/18/21 History mcg-formot 4.8 mcg/actuation HFA inhaler (Breztri Aerosphere) mupirocin 2 % topical ointment 1 applic TOPICAL BID 14 Days #22 g 02/13/21 06/18/21 03/11/21 Rx calcium carbonate 600 mg-vitamin 1 cap PO DAILY 02/14/21 06/18/21 06/18/21 History D3 12.5 mcg (500 unit) capsule (Calcium 600 with Vitamin D3) lansoprazole 30 mg capsule,delayed 30 mg PO BID #180 cap 04/29/21 06/18/21 06/18/21 Rx release (Prevacid) amlodipine 5 mg tablet 2.5 mg PO BEDTIME tab 06/17/21 06/18/21 06/17/21 History metoprolol succinate 50 mg See Rx Instructions .ROUTE 06/17/21 06/18/21 06/18/21 History tablet,extended release 24 hr .COMPLEX tab eszopiclone 2 mg tablet (Lunesta) 2 mg PO BEDTIME 06/18/21 06/19/21 Unknown History furosemide 20 mg tablet (Lasix) See Rx Instructions .ROUTE .COMPLEX 06/18/21 06/18/21 06/17/21 History hydrocodone 5 mg-acetaminophen 325 1 tab PO Q4H PRN 06/18/21 06/19/21 Unknown History mg tablet losartan 50 mg tablet 50 mg PO BEDTIME 06/18/21 06/18/21 06/17/21 History potassium chloride 10 mEq See Rx Instructions .ROUTE .COMPLEX 06/18/21 06/18/21 06/17/21 History tablet,extended release pregabalin 150 mg capsule 150 mg PO BID 06/18/21 06/18/21 06/18/21 History sennosides 8.6 mg tablet (senna) See Rx Instructions .ROUTE .COMPLEX 06/18/21 06/18/21 06/18/21 History vit C 250 mg-vit E 90 mg-zinc 40 1 tab PO BID 04/09/0306/18/21 06/18/21 History mg-copper 1 [id number] capsule (PreserVision AREDS-2) Allergies Allergy/AdvReac Type Severity Reaction Status Date / Time atropine Allergy Unknown Unknown Verified 06/17/21 14:00 benztropine Allergy Unknown Unknown Verified 06/17/21 14:00 cefadroxil [From Duricef] Allergy Unknown Unknown Verified 06/17/21 14:00 cimetidine Allergy Unknown Unknown Verified 06/17/21 14:00 enalapril Allergy Unknown Unknown Verified 06/17/21 14:00 enalaprilat [From Vasotec] Allergy Unknown Unknown Verified 06/17/21 14:00 gabapentin Allergy Unknown Unknown Verified 06/17/21 14:00 Sulfa (Sulfonamide Allergy Unknown Unknown Verified 06/17/21 14:00 Antibiotics) zolpidem [From Ambien] Allergy Unknown Unknown Verified 06/17/21 14:00 tramadol Allergy ADR-Itching Verified 06/21/21 12:13 Current Medications Generic Name Dose Route Start Last Admin Trade Name Freq PRN Reason Stop Dose Admin Hydrocodone Bitart/Acetaminophen 1 tab 06/21/21 15:08 06/21/21 22:01 Hydrocodone-Acetaminophen 5-325 Mg Tablet PO 1 tab Q4H PRN Administration MODERATE PAIN Amlodipine Besylate 2.5 mg 06/21/21 21:00 06/21/21 19:35 Amlodipine 5 Mg Tablet PO 2.5 mg BEDTIME KACEY Administration Doxycycline Monohydrate 100 mg 06/21/21 11:55 06/21/21 17:33 Doxycycline 100 Mg Tablet PO 100 mg BID KACEY Administration Protocol Sodium Chloride 1,000 mls @ 30 mls/hr 06/22/21 07:15 06/22/21 07:34 Sodium Chloride 0.9% IV 30 mls/hr .Q24H KACEY Administration Losartan Potassium 50 mg 06/21/21 21:00 06/21/21 19:33 Losartan 50 Mg Tablet PO 50 mg BEDTIME KACEY Administration Metoprolol Succinate 50 mg 06/21/21 21:00 06/21/21 19:36 Metoprolol Succinate Er (24 Hr) 50 Mg Tablet PO 50 mg BEDTIME KACEY Administration Non-Formulary Medication 24 mcg 06/19/21 09:00 06/21/21 17:34 Lubiprostone [Amitiza] PO 24 mcg BID KACEY Administration Lansoprazole( 1 each 06/21/21 18:00 06/21/21 17:34 Prevacid) PO 1 each BID KACEY Administration Nystatin 500,000 unit 06/21/21 09:40 06/21/21 19:36 Nystatin 100,000 Unit/Ml Udc 5 Ml PO 500,000 unit QID KACEY Administration Ondansetron HCl 4 mg 06/18/21 22:01 06/19/21 09:47 Ondansetron 2 Mg/Ml Sdv 2 Ml IVP 4 mg Q8H PRN Administration vomiting, or N/V if npo Pregabalin 150 mg 06/19/21 12:00 06/21/21 19:33 Pregabalin 75 Mg Capsule PO 150 mg 1200,2200 KACEY Administration Ropinirole HCl 2 mg 06/19/21 21:00 06/21/21 19:36 Ropinirole 2 Mg Tablet PO 2 mg BEDTIME KACEY Administration Senna/Docusate Sodium 2 tab 06/21/21 10:47 06/21/21 17:33 Sennosides-Docusate Tablet PO 2 tab BID KACEY Administration PFSH Anesthesia Medical History Atrial fibrillation CAD (coronary artery disease) Diastolic heart failure GERD (gastroesophageal reflux disease) HTN (hypertension) Osteoarthritis Pacemaker Varicose veins of left lower extremity with other complications Surgical History Previous back surgery S/P cardiac pacemaker procedure S/P cataract extraction S/P hysterectomy S/P rotator cuff repair *DELETE* S/P tubal ligation Family History Father , [place] age 44 Myocardial infarction Social History Smoking and tobacco status: never smoked History of recent travel: No Data Anesthesia : 06/22/21 05:10 06/22/21 05:10 Short CBC 06/21/21 06/21/21 06/22/21 Range/Units 04:55 10:30 05:10 WBC 6.1 6.6 (4.0-10.0) 10^3/uL Hgb 9.0 L 9.4 L 9.1 L (11.5-15.3) g/dL Hct 32.0 L 33.6 L 33.3 L (37.0-47.0) % MCV 89.4 92.2 (81-99) fl Plt Count 152 104 L D (130-400) 10^3/cmm Neut % (Auto) 65.2 66.3 % Neut # (Auto) 4.00 4.35 (1.8-7.7) 10^3/uL BMP 06/21/21 06/22/21 04:55 05:10 Sodium 141 141 Potassium 4.3 4.0 Chloride 108 H 105 Carbon Dioxide 26 26 BUN 17 16 Creatinine 1.0 H 1.1 H Glucose 109 116 H Calcium 8.9 9.2 Liver Function 06/21/21 Range/Units 04:55 Total Bilirubin 0.3 (0.15-1.2) mg/dL AST 32 (0-32) U/L ALT 9 (0-33) U/L Alkaline Phosphatase 146 H (35-105) IU/L Albumin 3.6 (3.5-5.2) g/dL Blood Bank 06/18/21 17:29 Blood Type B Positive Rho(D) Type Positive Antibody Screen Negative Coags 06/20/21 06/20/21 06/22/21 08:30 15:04 05:10 PT 22.30 H 19.00 H 15.60 H INR 1.92 H 1.56 H 1.20 Microbiology 06/18/21 20:30 Urine Culture - Final Urine,Clean Catch Escherichia coli Cardiac Studies: No Data to Display
--- NOTE | 2021-06-22 08:26 | PM.MISC ---
Miscellaneous Note Purpose of Documentation: Postoperative note for EGD Note: I did not appreciate an etiology for the patient's anemia.
--- NOTE | 2021-06-22 08:42 | P.PN_ITS ---
Subjective Subjective: Status post EGD which was unremarkable Hemoglobin around 9 We will hold losartan because of slight worsing creatinine She was given Lasix yesterday and she is on fluids today before EGD which was st arted by Dr. Lane I will increase the dose of amlodipine to 5 mg, add hydralazine, hold losartan Continue metoprolol Hypertensive, She does not require oxygen, she should be weaned off to room air, she had near malay on and she was saturating well on room air Vitals/I&O/Wt Last Vital Signs Temp 97.9 F 06/22/21 08:15 Pulse 79 06/22/21 08:30 Resp 18 06/22/21 08:30 BP 161/83 06/22/21 08:30 Pulse Ox 92 06/22/21 08:30 06/21/21 06/22/21 06/22/21 22:59 06:59 14:59 Intake Total 480 / 720 120 / 840 200 / 200 Output Total 700 / 1530 300 / 1830 Balance -220 / -810 -180 / -990 200 / 200 Weight last 48 hrs Weight 90.9 kg Weight 90.855 kg Physical Exam Narrative: Patient is pleasant to communicate Nonfocal neuro exam Does not look hypervolemic Abdomen is soft S1, S2 variable Obesity Nonfocal neuro exam Bilateral breath sounds without audible rhonchi or crackles Diminished breath sounds at the bases Data : 06/22/21 05:10 06/22/21 05:10 Micro: Microbiology 06/18/21 20:30 Urine Culture - Final Urine,Clean Catch Escherichia coli A&P Assessment and plan (1) ANI (acute kidney injury): Status: Acute (2) UTI (urinary tract infection): Status: Acute (3) Blood loss anemia: Status: Acute (4) Pacemaker at end of battery life: Status: Acute (5) Atrial fibrillation: Status: Acute (6) HTN (hypertension): Status: Acute (7) CAD (coronary artery disease): Status: Acute Plan 81-year-old female who presents to the hospital for battery replacement of pacemaker, found to have anemia, EGD unremarkable, she is on Coumadin for A. fib, currently hypertensive, INR reversed with FFP and vitamin K for pacemaker battery replacement, cardiology is following Pacemaker battery replacement by Dr. Chase 06/20 Patient is pacemaker dependent She will need antibiotic prophylaxis for her wound I have chosen doxycycline for MRSA coverage UTI without symptoms: E. coli, continue doxycycline which will cover UTI as well for E. coli however patient had no symptoms Hypertensive: Hold losartan because of worsening creatinine, I have added hydralazine today, increase the dose of amlodipine to 5 mg that of 2.5 mg, she is already taking metoprolol 100 mg in the morning and 50 at night A. fib without RVR Holding Coumadin EGD nondiagnostic, We have not found active source of bleeding, I do believe her symptoms are relat ed to iron deficiency anemia She received 1 bag of iron sucrose, second bag can be given after 2 weeks Status post 2 unit PRBC at the time of admission, hemoglobin stable around 9 I am inclining towards continuation of Coumadin at the time of discharge, check INR and CBC within 2 to 3 days and follow-up with PCP within a week [id number] 5 HasBled 3, risk of stroke greater than bleeding She may benefit from colonoscopy as EGD is unremarkable INR reversed with 1 unit of FFP and vitamin K on 06/20 DNR/DNI Resume cardiac diet after EGD l follow up with cardiology before discharge Attestations Medical Necessity Statement*: Status post EGD today, will follow up with Dr. Lane& Dr. Chase for disposition plan Time Spent in Patient Care: 30mins Coding Level of Care Code Acute Hemodialysis Patient Care Specialist for Chg Fwd Diagnoses ANI (acute kidney injury) N17.9 UTI (urinary tract infection) N39.0 Blood loss anemia D50.0 Pacemaker at end of battery life Z45.010 Atrial fibrillation I48.91 HTN (hypertension) I10 CAD (coronary artery disease) I25.10
[2021-06-22] MEDS: hyDRALAzine 10 mg Tablet PO ×2 (09:25→20:05)
[2021-06-22] MEDS: metoprolol succinate ER (24 HR) 100 mg Tablet PO (09:25)
[2021-06-22] MEDS: amlodipine 5 mg Tablet PO ×2 (09:26→09:34)
[2021-06-22] MEDS: sennosides-docusate Tablet 2 TAB PO ×2 (09:26→17:50)
[2021-06-22] MEDS: nystatin 100,000 unit/mL UDC 5 mL 500000 UNIT PO ×3 (09:26→17:50)
[2021-06-22] MEDS: NON-FORMULARY MEDICATION (Lubiprostone [Amitiza] 24 mcg capsule) 24 EACH PO ×2 (09:27→17:50)
--- NOTE | 2021-06-22 11:37 | ANE.PACU2 ---
Inpatient post-anesthesia follow up: Airway intact: Yes Vital signs: Temperature 97.9 F Pulse Rate 79 Respiratory Rate 18 Blood Pressure 161/83 Pulse Oximetry 92 Oxygen Delivery Me thod Nasal Cannula Oxygen Flow Rate 2 Fraction of Inspir ed Oxygen Hydration adequate: Yes Nausea and vomiting: No Pain level: 2 Mental status: Baseline
[2021-06-22] MEDS: pregabalin 75 mg Capsule 150 MG PO ×2 (12:30→22:52)
[2021-06-22] MEDS: HYDROcodone-acetaminophen 5-325 mg Tablet 1 TAB PO ×2 (13:47→22:52)
--- NOTE | 2021-06-22 15:51 | PM.PN ---
Subjective Subjective: Patient had the upper endoscopy today. No significant lesions were noted. Patient denies any chest pain or shortness of breath. The pacemaker revision site has no hematoma or bleeding. He has no fever or chills. No cough. Medications: Medication Review Details: Current Medications Acetaminophen (Acetaminophen 325 Mg Tablet) 650 mg PO Q6H PRN PRN Reason: Mild/Mod Pain Or Temp >/= 101 Hydrocodone Bitart/Acetaminophen (Hydrocodone-Acetaminophen 5-325 Mg Tablet) 1 tab PO Q4H PRN PRN Reason: Pain, Mild Last Admin: 06/22/21 13:47 Dose: 1 tab Documented by: Amlodipine Besylate (Amlodipine 5 Mg Tablet) 5 mg PO DAILY [facility] Last Admin: 06/22/21 09:34 Dose: 5 mg Documented by: Hydralazine HCl (Hydralazine 10 Mg Tablet) 10 mg PO TID [facility] Last Admin: 06/22/21 15:25 Dose: Not Given Documented by: Metoprolol Succinate (Metoprolol Succinate Er (24 Hr) 50 Mg Tablet) 50 mg PO BEDTIME [facility] Last Admin: 06/21/21 19:36 Dose: 50 mg Documented by: Metoprolol Succinate (Metoprolol Succinate Er (24 Hr) 100 Mg Tablet) 100 mg PO DAILY [facility] Last Admin: 06/22/21 09:25 Dose: 100 mg Documented by: Non-Formulary Medication (Lubiprostone [Amitiza]) 24 mcg PO BID [facility] Last Admin: 06/22/21 09:27 Dose: 24 mcg Documented by: Lansoprazole( (Prevacid)) 1 each PO BID [facility] Last Admin: 06/22/21 09:26 Dose: 1 each Documented by: Nystatin (Nystatin 100,000 Unit/Ml Udc 5 Ml) 500,000 unit PO QID [facility] Last Admin: 06/22/21 12:30 Dose: 500,000 unit Documented by: Ondansetron HCl (Ondansetron 2 Mg/Ml Sdv 2 Ml) 4 mg IVP Q8H PRN PRN Reason: vomiting, or N/V if npo Last Admin: 06/19/21 09:47 Dose: 4 mg Documented by: Pregabalin (Pregabalin 75 Mg Capsule) 150 mg PO 1200,2200 [facility] Last Admin: 06/22/21 12:30 Dose: 150 mg Documented by: Ropinirole HCl (Ropinirole 2 Mg Tablet) 2 mg PO BEDTIME [facility] Last Admin: 06/21/21 19:36 Dose: 2 mg Documented by: Senna/Docusate Sodium (Sennosides-Docusate Tablet) 2 tab PO BID [facility] Last Admin: 06/22/21 09:26 Dose: 2 tab Documented by: Vitals/I&O/Wt Last Vital Signs Temp 98.1 F 06/22/21 13:47 Pulse 80 06/22/21 15:00 Resp 24 H 06/22/21 15:00 BP 118/79 06/22/21 15:00 Pulse Ox 92 06/22/21 15:00 06/22/21 06/22/21 06/22/21 06:59 14:59 22:59 Intake Total 120 / 840 560 / 560 Output Total 300 / 1830 Balance -180 / -990 560 / 560 Weight last 48 hrs Weight 200 lb 6.4 oz Weight 200 lb 4.8 oz Physical Exam Narrative: GENERAL: The patient is alert and oriented times three. Not in any acute distress. HEENT: Minimal pallor. No icterus or lymphadenopathy. Oral cavity: There are no mucous membrane lesions. NECK: Trachea appears to be central. No masses noted. No JVD or thyromegaly appreciated. No carotid bruit. RESPIRATORY: Chest is symmetrical. No intercostals muscle retraction or any accessory muscle activation. There is no chest wall tenderness. Breath sounds are heard bilaterally. No rales or rhonchi heard. No evidence of any consolidation. Her systolic murmur in the left sternal border. No diastolic murmurs. Pacemaker site has no hematoma bleeding. BREASTS: Deferred. HEART: The heart sounds are normal. No S3 or S4 ABDOMEN: No vessel pulsations or distention. No tenderness. No organomegaly appreciated. No abdominal bruit. Bowel sounds are normally heard. : Deferred. RECTAL: Deferred. LYMPHATIC: No lymphadenopathy noted in the neck or groin. EXTREMITIES: No edema or cyanosis. No clubbing. Peripheral pulses are palpable but weak bilaterally. MUSCULOSKELETAL: No acute joint deformities or swelling SKIN: There are no significant scars or skin rash noted. NEUROPSYCHIATRIC: The patient is alert and oriented x3. Appears to be in a good mood. The higher functions are grossly within normal limits. No tremors or rigidity noted. Data : 06/22/21 05:10 06/22/21 05:10 Other Labs: Laboratory Last Values WBC 6.6 10^3/uL (4.0-10.0) 06/22/21 05:10 RBC 3.61 10^6/uL (4.1-5.3) L 06/22/21 05:10 Hgb 9.1 g/dL (11.5-15.3) L 06/22/21 05:10 Hct 33.3 % (37.0-47.0) L 06/22/21 05:10 MCV 92.2 fl (81-99) 06/22/21 05:10 MCH 25.2 pg (28.0-34.0) L 06/22/21 05:10 MCHC 27.3 g/dL (30.0-36.0) L 06/22/21 05:10 RDW 18.0 % (12.1-15.1) H 06/22/21 05:10 Plt Count 104 10^3/cmm (130-400) L D 06/22/21 05:10 MPV 12.6 fL (7.4-10.4) H 06/22/21 05:10 Neut % (Auto) 66.3 % 06/22/21 05:10 Lymph % (Auto) 22.3 % 06/22/21 05:10 [place] % (Auto) 8.5 % 06/22/21 05:10 Eos % (Auto) 1.5 % 06/22/21 05:10 Baso % (Auto) 0.9 % 06/22/21 05:10 Neut # (Auto) 4.35 10^3/uL (1.8-7.7) 06/22/21 05:10 Lymph # (Auto) 1.5 10^3/uL (0.8-4.8) 06/22/21 05:10 [place] # (Auto) 0.6 10^3/uL (0.2-0.9) 06/22/21 05:10 Eos # (Auto) 0.1 10^3/uL (0.0-0.8) 06/22/21 05:10 Baso # (Auto) 0.1 10^3/uL (0.0-0.1) 06/22/21 05:10 Nucleated RBC % (auto) 0 % 06/22/21 05:10 Total Counted 100 (0-100) 06/19/21 18:06 Atypical Lymphs % 0.0 % (0-5) 06/19/21 18:06 Absolute Neutrophils 5.4 10^3/cmm (1.4-6.5) 06/19/21 18:06 Segmented Neutrophils 72 % 06/19/21 18:06 Abs Segm Neuts (Man) 5.4 10/cmm (1.6-7.1) 06/19/21 18:06 Band Neutrophils 0.0 % 06/19/21 18:06 Abs Band Neuts (Man) 0.0 10^3/cmm (0.0-1.2) 06/19/21 18:06 Absolute Lymphocytes 1.7 10^3/cmm (1.2-3.4) 06/19/21 18:06 Lymphocytes (Manual) 23 % 06/19/21 18:06 Monocytes (Manual) 2.0 % 06/19/21 18:06 Absolute Monocytes 0.2 10^3/cmm (0.1-0.6) 06/19/21 18:06 Eosinophils (Manual) 3 % 06/19/21 18:06 Absolute Eosinophils 0.2 10^3/cmm (0.0-0.7) 06/19/21 18:06 Basophils (Manual) 0.0 % 06/19/21 18:06 Absolute Basophils 0.0 10^3/cmm (0.0-0.2) 06/19/21 18:06 Nucleated RBCs # 0.0 /100WBC 06/22/21 05:10 Platelet Estimate Normal (Normal) 06/19/21 18:06 PT 15.60 SECONDS (12.1-14.9) H 06/22/21 05:10 INR 1.20 (0.8-1.2) 06/22/21 05:10 APTT 42.4 SECONDS (23.9-36.7) H 06/19/21 04:56 Sodium 141 mmol/L (136-145) 06/22/21 05:10 Potassium 4.0 mmol/L (3.5-5.1) 06/22/21 05:10 Chloride 105 mmol/L (98-107) 06/22/21 05:10 Carbon Dioxide 26 mmol/L (22-29) 06/22/21 05:10 Anion Gap 14.0 (5-19) 06/22/21 05:10 BUN 16 mg/dL (8-23) 06/22/21 05:10 Creatinine 1.1 mg/dL (0.5-0.9) H 06/22/21 05:10 GFR Calculation Not Reportable 06/22/21 05:10 Glucose 116 mg/dL (65-115) H 06/22/21 05:10 Calculated Osmolality 294 mOsm/kg (285-295) 06/22/21 05:10 Calcium 9.2 mg/dL (8.5-10.5) 06/22/21 05:10 Iron 67 ug/dL (37-145) 06/19/21 04:56 TIBC 373 mcg/dl 06/19/21 04:56 % Saturation 17.9 % (20-50) L 06/19/21 04:56 Unsat Iron Binding 306 ug/dL (112-347) 06/19/21 04:56 Ferritin 13 ng/mL (15-150) L 06/19/21 04:56 Total Bilirubin 0.3 mg/dL (0.15-1.2) 06/21/21 04:55 AST 32 U/L (0-32) 06/21/21 04:55 ALT 9 U/L (0-33) 06/21/21 04:55 Alkaline Phosphatase 146 IU/L (35-105) H 06/21/21 04:55 Total Protein 6.6 g/dL (6.6-8.7) 06/21/21 04:55 Albumin 3.6 g/dL (3.5-5.2) 06/21/21 04:55 Globulin 3.0 g/dL (1.3-4.6) 06/21/21 04:55 Vitamin B12 531 pg/mL (232-1245) 06/19/21 04:56 Urine Color Yellow (Yellow) 06/18/21 20:30 Urine Appearance Sl hazy (CLEAR) 06/18/21 20:30 Urine pH 5 (5-7) 06/18/21 20:30 Ur Specific Reading 1.020 (1.005-1.030) 06/18/21 20:30 Urine Protein 1+ (Negative) H 06/18/21 20:30 Urine Glucose (UA) Norm (Normal) 06/18/21 20:30 Urine Ketones Negative (Negative) 06/18/21 20:30 Urine Blood Neg (Negative) 06/18/21 20:30 Urine Nitrate Positive (Negative) H 06/18/21 20:30 Urine Bilirubin Neg (Negative) 06/18/21 20:30 Urine Urobilinogen 1 mg/dL (Negative) H 06/18/21 20:30 Ur Leukocyte Esterase 1+ (Negative) H 06/18/21 20:30 Urine RBC 0-4 /hpf (0-2) H 06/18/21 20:30 Urine WBC 55-80 /hpf (0-5) H 06/18/21 20:30 Ur Squamous Epith Cells 5-10 /hpf (0-5) H 06/18/21 20:30 Amorphous Sediment Not Reportable 06/18/21 20:30 Urine Bacteria 2+ /hpf (NONE) H 06/18/21 20:30 Blood Type B Positive 06/18/21 17:29 Rho(D) Type Positive 06/18/21 17:29 Antibody Screen Negative 06/18/21 17:29 Crossmatch See Detail 06/18/21 17:29 Micro: Microbiology 06/22/21 Unknown Occult Blood (FIT) - Final Stool A&P Assessment and plan (1) Pacemaker at end of battery life: Status post pacemaker revision. Pacemaker function seems to be appropriate. Lower rate is set at 80/min. Patient has significant improvement of her symptoms. Status: Acute (2) Atrial fibrillation: Will discuss about the oral anticoagulation Status: Acute (3) HTN (hypertension): The blood pressure seems to be under control. May continue on the current medications. Status: Acute (4) Blood loss anemia: Work-up as per the primary Status: Acute Plan GI work-up as per Dr. Garrison. Will start on subcu Lovenox for DVT prophylaxis Attestations Medical Necessity Statement*: Disposition as per the primary Coding Level of Care Code Acute Vocational Technical Education Teacher for Chg Fwd History Detailed Exam Detailed Medical Decision Making Moderate Complexity Diagnoses Pacemaker at end of battery life Z45.010 Atrial fibrillation I48.91 HTN (hypertension) I10 Blood loss anemia D50.0
[2021-06-22] MEDS: peg /e-lyte soln 4,000 mL Btl 4000 ML PO (17:47)
[2021-06-22] MEDS: heparin 5,000 unit/mL INJ 1 mL 5000 UNIT SUBCUT (18:57)
[2021-06-22] MEDS: metoprolol succinate ER (24 HR) 50 mg Tablet PO (20:05)
[2021-06-23] VITALS (14 sets, daily range): BP systolic 119–163; BP diastolic 71–97; PULSE 60–83; RESP 18–27; TEMP 36.1–36.8; O2SAT 90–94
[2021-06-23 04:29] LABS: Basophils # 0.1 10^3/uL (0.0-0.1); Basophils % 1.2 %; Eosinophils # 0.2 10^3/uL (0.0-0.8); Eosinophils % 2.5 %; Hematocrit 31.9 % (37.0-47.0); Hemoglobin 9.2 g/dL (11.5-15.3); Lymphocytes # 1.8 10^3/uL (0.8-4.8); Lymphocytes % 25.9 %; Mean Corpuscular HGB Conc 28.8 g/dL (30.0-36.0); Mean Corpuscular Hemoglobin 25.3 pg (28.0-34.0); Mean Corpuscular Volume 87.6 fl (81-99); Mean Platelet Volume 12.9 fL (7.4-10.4); Monocytes # 0.5 10^3/uL (0.2-0.9); Monocytes % 7.9 %; Neutrophils # 4.25 10^3/uL (1.8-7.7); Neutrophils % 62.2 %; Nucleated Red Blood Cells % 0 %; Platelet Count 148 10^3/cmm (130-400); Red Blood Count 3.64 10^6/uL (4.1-5.3); Red Cell Distribution Width 18.8 % (12.1-15.1); White Blood Count 6.8 10^3/uL (4.0-10.0)
[2021-06-23 04:39] LABS: Blood Urea Nitrogen 13 mg/dL (8-23); Calcium 9.1 mg/dL (8.5-10.5); Carbon Dioxide 27 mmol/L (22-29); Chloride 104 mmol/L (98-107); Creatinine Clr Calc Pharmacy 56.3656; Glucose 93 mg/dL (65-115); Osmolality Calculated 294 mOsm/kg (285-295); Sodium 142 mmol/L (136-145)
[2021-06-23 05:05] LABS: INR 1.23 (0.8-1.2)
[2021-06-23] MEDS: heparin 5,000 unit/mL INJ 1 mL 5000 UNIT SUBCUT (05:20)
[2021-06-23 05:33] LABS: Slide Review Slide Review Perform
[2021-06-23] MEDS: NON-FORMULARY MEDICATION (Lubiprostone [Amitiza] 24 mcg capsule) 24 EACH PO ×2 (08:41→17:37)
[2021-06-23] MEDS: metoprolol succinate ER (24 HR) 100 mg Tablet PO (08:42)
[2021-06-23] MEDS: hyDRALAzine 10 mg Tablet PO ×3 (08:42→19:25)
[2021-06-23] MEDS: amlodipine 5 mg Tablet PO (08:42)
[2021-06-23] MEDS: sennosides-docusate Tablet 2 TAB PO ×2 (08:42→17:38)
--- NOTE | 2021-06-23 09:22 | PC.NURSE ---
performed a bed bath and changed bedding for patient per patient request.
--- NOTE | 2021-06-23 09:58 | PC.NURSE ---
Patient taken off unit via wheel chair to GI lab for procedure
[2021-06-23 10:01] LABS: Anion Gap 14.7 (5-19); Potassium 3.7 mmol/L (3.5-5.1)
--- NOTE | 2021-06-23 10:25 | P.ANESUD_ITS ---
Pre-Anesthetic Update Pre-Anesthetic Assessment: Date of Surgery/Procedure: 06/23/21 Preop Sidra gnosis: Symptomatic pacemaker SOLA Proposed Procedure: Operation Date: 06/20/21 12:00 Proposed Procedures p Pacemaker Insertion(Left) - Judy Chase MD Operation Date: 06/22/21 08:00 Proposed Procedures p Esophagogast rodudenoscopy with possible biopsy(Not Applicable) - Joel Lane MD Operation Date: 06/23/21 11:00 Proposed Procedures p Colonoscopy(Not Applicable) - Joel Lane MD Any changes to Pre-Anesthetic Assessment?: No Last Intake: 07:30 (drink of water to finish bowel prep this AM at 0730.) Labs Last 48hrs: Short CBC 06/21/21 06/22/21 06/23/21 Range/Units 10:30 05:10 02:40 WBC 6.6 6.8 (4.0-10.0) 10^3/ uL Hgb 9.4 L 9.1 L 9.2 L (11.5-15.3) g/dL Hct 33.6 L 33.3 L 31.9 L (37.0-47.0) % MCV 92.2 87.6 (81-99) fl Plt Count 104 L D 148 D (130-400) 10^3/c mm Neut % (Auto) 66.3 62.2 % Neut # (Auto) 4.35 4.25 (1.8-7.7) 10^3/u L BMP 06/22/21 06/23/21 05:10 02:40 Sodium 141 142 Potassium 4.0 3.7 Chloride 105 104 Carbon Dioxide 26 27 BUN 16 13 Creatinine 1.1 H 0.8 Glucose 116 H 93 Calcium 9.2 9.1 Coags 06/22/21 06/23/21 05:10 02:40 PT 15.60 H 15.80 H INR 1.20 1.23 H Vitals: Temperature 97.9 F 06/23/21 07:48 Temperature Source Oral 06/23/21 07:48 Pulse Rate 80 06/23/21 07:48 Pulse Rhythm 06/23/21 06:00 Pulse Strength 3+ Normal 06/23/21 06:00 Respiratory Rate 19 H 06/23/21 07:48 Respiratory Effort Non-Labored 06/23/21 06:00 Respiratory Depth Normal 06/23/21 06:00 Respiratory Patter n 06/20/21 11:40 Blood Pressure 150/91 06/23/21 07:48 Blood Pressure Pura n 110 06/23/21 07:48 Blood Pressure Pos ition Semi Fowlers 06/23/21 07:48 Pulse Oximetry 94 06/23/21 07:48 Oxygen Delivery Me thod 06/23/21 07:48 Oxygen Flow Rate 2 06/22/21 08:30 Sepsis Recent Feve r Within 48 Hours No 06/18/21 17:54 Sepsis New/Unexpla ined Change in Men levon Status No 06/18/21 17:54 Cardiac Studies: No Data to Display
[2021-06-23] MEDS: sodium chloride 0.9% 1,000 ML 30 ML IV (10:39)
--- NOTE | 2021-06-23 11:03 | PC.SOCIAL ---
IMM Update Pg. 2 of IMM updated and reviewed with patient, who verbalized understanding. Copy provided.
--- NOTE | 2021-06-23 11:13 | P.PN_ITS ---
Subjective Subjective: Seen this morning. No acute events overnight. Patient will be going for colonoscopy today. Vitals/I&O/Wt Last Vital Signs Temp 98 F 06/23/21 10:27 Pulse 80 06/23/21 10:27 Resp 19 H 06/23/21 10:27 BP 160/97 06/23/21 10:27 Pulse Ox 94 06/23/21 10:27 06/22/21 06/23/21 06/23/21 22:59 06:59 14:59 Intake Total 2240 / 2800 Output Total 450 / 800 Balance 1790 / 2000 Weight last 48 hrs Weight 85.531 kg Weight 90.9 kg Physical Exam Narrative: General: Alert oriented x3, patient seen sitting up in bed appearing comfortable. HEENT: Normocephalic, atraumatic, EOMI, normal respiratory effort. Cardio: Irregularly irregular rhythm, normal S1-S2, Respiratory: Clear to auscultation, no wheezes, diminished at bases GI: Abdomen soft, nontender obese rounded abdomen,bowel sounds + Behavior: Appropriate and cooperative Extremities: Trace edema Data : 06/23/21 02:40 06/23/21 02:40 Micro: Microbiology 06/22/21 Unknown Occult Blood (FIT) - Final Stool A&P Assessment and plan (1) UTI (urinary tract infection): Status: Acute (2) Blood loss anemia: Status: Acute (3) Pacemaker at end of battery life: Status: Acute (4) Atrial fibrillation: Status: Acute (5) HTN (hypertension): Status: Acute (6) Iron deficiency anemia: Status: Acute Plan 81-year-old female who presents to the hospital for battery replacement of pacemaker, found to have anemia, EGD unremarkable, she is on Coumadin for A. fib, currently hypertensive, INR reversed with FFP and vitamin K for pacemaker battery replacement, cardiology is following #Pacemaker battery replacement by Dr. Chase 06/20 Patient is pacemaker dependent Continue doxycycline for another 3 days. #UTI without symptoms: E. coli, continue doxycycline which will cover UTI as well for E. coli however patient had no symptoms. #Hypertensive: Blood pressure 160/97 this morning. Pressure has been between 1 40-1 60 systolic range and 70-100 diastolic. Hydralazine was added yesterday and losartan was held due to increasing creatinine Amlodipine was increased to 5 mg. Continue metoprolol 100 mg in the morning and 50 at night. Continue above regimen for now and watch blood pressure. Patient did seem a little anxious this morning prior to her procedure. If remains uncontrolled I will increase amlodipine to 10 mg. #A. fib without RVR #Incidental finding of anemia with hemoglobin 7.7 on admission #Iron deficiency anemia ?Patient has been on Coumadin for years and years. Coumadin is on hold for now. EGD was completed which was nondiagnostic. Patient to have colonoscopy today. ?It has been discussed with patient regarding the continuation of Coumadin at the time of discharge and she is agreeable and understands the risk of taking blood thinners. [id number], has been 3. Risk of stroke is greater than bleeding. Colonoscopy today. After colonoscopy I will restart Coumadin. She is to contin ue checking her INR as an outpatient. CBC prescription to be given to her to check in 3 days and follow-up with PCP within a week. EGD nondiagnostic, We have not found active source of bleeding, I do believe her symptoms are related to iron deficiency anemia She received 1 bag of iron sucrose, second bag can be given after 2 weeks Status post 2 unit PRBC at the time of admission, hemoglobin stable around 9 I am inclining towards continuation of Coumadin at the time of discharge, check INR and CBC within 2 to 3 days and follow-up with PCP within a week -Start oral iron after colonoscopy. DNR/DNI Resume cardiac diet after EGD l follow up with cardiology before discharge Attestations Medical Necessity Statement*: Colonoscopy today. Will re-assess discharge plan after results Coding Level of Care Code Acute Assurance Engineer for g Fwd Diagnoses UTI (urinary tract infection) N39.0 Blood loss anemia D50.0 Pacemaker at end of battery life Z45.010 Atrial fibrillation I48.91 HTN (hypertension) I10 Iron deficiency anemia D50.9 Time Spent (min) 20
--- NOTE | 2021-06-23 11:44 | P.PN_ITS ---
Subjective Subjective: The patient has had no obvious gastrointestinal bleeding. After discussion with the hospitalist, the decision was made to consider a colonoscopy while inpatient due to the patient's severe anemia with no obvious source. Vitals/I&O/Wt Last Vital Signs Temp 98 F 06/23/21 10:27 Pulse 80 06/23/21 10:27 Resp 19 H 06/23/21 10:27 BP 160/97 06/23/21 10:27 Pulse Ox 94 06/23/21 10:27 06/22/21 06/23/21 06/23/21 22:59 06:59 14:59 Intake Total 2240 / 2800 Output Total 450 / 800 Balance 1790 / 2000 Weight last 48 hrs Weight 188 lb 9 oz Weight 200 lb 6.4 oz Physical Exam Narrative: The patient is alert Her heart has a regular rate and rhythm Her lungs are clear to auscultation bilaterally Her abdomen is nondistended nontender bowel sounds are positive Data : 06/23/21 02:40 06/23/21 02:40 Micro: Microbiology 06/22/21 Unknown Occult Blood (FIT) - Final Stool A&P Assessment and plan (1) Iron deficiency anemia: Prior to the procedure I discussed with the patient the risks and alternatives of proceeding with a colonoscopy. We discussed the risks of bleeding, perforation, as well as the risks of sedation. I also discussed this with her h usband and son prior to the procedure. She does understand that because of her age and medical condition her risks are higher than average. She would like to proceed with the procedure. Status: Acute Attestations Medical Necessity Statement*: Per hospitalist. Coding Level of Care Code Acute Audiologist for Love Roberta Diagnoses Iron deficiency anemia D50.9
--- NOTE | 2021-06-23 11:48 | PM.MISC ---
Miscellaneous Note Note: The colonoscopy did not reveal any obvious source of bleeding. She did have several polyps that were removed. None of the polyps removed are potential etiologies for the blood loss of the patient.
--- NOTE | 2021-06-23 12:05 | ANE.PACU2 ---
Inpatient post-anesthesia follow up: Airway intact: Yes Vital signs: Temperature 97.2 F Pulse Rate 80 Respiratory Rate 18 Blood Pressure 130/78 Pulse Oximetry 90 Oxygen Delivery Me thod Room Air Oxygen Flow Rate 2 Fraction of Inspir ed Oxygen Hydration adequate: Yes Nausea and vomiting: No Pain level: 1 Mental status: Baseline
[2021-06-23] MEDS: warfarin 2 mg Tablet PO (16:26)
[2021-06-23] MEDS: nystatin 100,000 unit/mL UDC 5 mL 500000 UNIT PO ×2 (16:26→19:26)
[2021-06-23] MEDS: HYDROcodone-acetaminophen 5-325 mg Tablet 1 TAB PO (19:25)
[2021-06-23] MEDS: metoprolol succinate ER (24 HR) 50 mg Tablet PO (19:25)
[2021-06-23] MEDS: ropinirole 2 mg Tablet PO (19:25)
[2021-06-23] MEDS: pregabalin 75 mg Capsule 150 MG PO (19:25)
--- NOTE | 2021-06-23 21:30 | PM.PN ---
Subjective Subjective: The patient is feeling okay. She had colonoscopy today. No active bleeding was noted. No fever or chills. The blood pressure seems to be elevated Medications: Medication Review Details: Current Medications Acetaminophen (Acetaminophen 325 Mg Tablet) 650 mg PO Q6H PRN PRN Reason: Mild/Mod Pain Or Temp >/= 101 Hydrocodone Bitart/Acetaminophen (Hydrocodone-Acetaminophen 5-325 Mg Tablet) 1 tab PO Q4H PRN PRN Reason: Pain, Mild Last Admin: 06/23/21 19:25 Dose: 1 tab Documented by: Amlodipine Besylate (Amlodipine 5 Mg Tablet) 5 mg PO DAILY [facility] Last Admin: 06/23/21 08:42 Dose: 5 mg Documented by: Hydralazine HCl (Hydralazine 10 Mg Tablet) 10 mg PO TID [facility] Last Admin: 06/23/21 19:25 Dose: 10 mg Documented by: Sodium Chloride (Sodium Chloride 0.9%) 1,000 mls @ 30 mls/hr IV .Q24H [facility] Stop: 06/24/21 10:29 Last Infusion: 06/23/21 12:14 Dose: Infused Documented by: Levofloxacin (Levofloxacin 500 Mg Tablet) 500 mg PO DAILY@0600 [facility]; Protocol Lidocaine HCl (Lidocaine 2% Viscous 15 Ml Udc) 1 ml TOPICAL PRN PRN PRN Reason: Anesthetic prior to IV start Lidocaine HCl (Lidocaine 1% Inj 20 Ml) 0.1 ml INTRADERMA PRN PRN PRN Reason: anesthetic prior to IV start Stop: 06/24/21 10:25 Metoprolol Succinate (Metoprolol Succinate Er (24 Hr) 50 Mg Tablet) 50 mg PO BEDTIME [facility] Last Admin: 06/23/21 19:25 Dose: 50 mg Documented by: Metoprolol Succinate (Metoprolol Succinate Er (24 Hr) 100 Mg Tablet) 100 mg PO DAILY [facility] Last Admin: 06/23/21 08:42 Dose: 100 mg Documented by: Midazolam HCl (Midazolam 1 Mg/Ml Inj 2 Ml) 2 mg IVP Q5M PRN PRN Reason: Preop Anxiety Non-Formulary Medication (Lubiprostone [Amitiza]) 24 mcg PO BID [facility] Last Admin: 06/23/21 17:37 Dose: 24 mcg Documented by: Lansoprazole( (Prevacid)) 1 each PO BID [facility] Last Admin: 06/23/21 17:37 Dose: 1 each Documented by: Nystatin (Nystatin 100,000 Unit/Ml Udc 5 Ml) 500,000 unit PO QID [facility] Last Admin: 06/23/21 19:26 Dose: 500,000 unit Documented by: Ondansetron HCl (Ondansetron 2 Mg/Ml Sdv 2 Ml) 4 mg IVP Q8H PRN PRN Reason: vomiting, or N/V if npo Last Admin: 06/19/21 09:47 Dose: 4 mg Documented by: Ondansetron HCl (Ondansetron 2 Mg/Ml Sdv 2 Ml) 4 mg IVP Q15M PRN PRN Reason: Nausea/Vomiting PACU PHASE II Pregabalin (Pregabalin 75 Mg Capsule) 150 mg PO 1200,2200 [facility] Last Admin: 06/23/21 19:25 Dose: 150 mg Documented by: Ropinirole HCl (Ropinirole 2 Mg Tablet) 2 mg PO BEDTIME [facility] Last Admin: 06/23/21 19:25 Dose: 2 mg Documented by: Senna/Docusate Sodium (Sennosides-Docusate Tablet) 2 tab PO BID [facility] Last Admin: 06/23/21 17:38 Dose: 2 tab Documented by: Warfarin Sodium (Warfarin 2 Mg Tablet) 2 mg PO MoWeFr@1400 [facility] Last Admin: 06/23/21 16:26 Dose: 2 mg Documented by: Warfarin Sodium (Warfarin 1 Mg Tablet) 1 mg PO SuTuThSa@1400 [facility] Vitals/I&O/Wt Last Vital Signs Temp 98.2 F 06/23/21 19:33 Pulse 80 06/23/21 19:33 Resp 23 H 06/23/21 19:33 BP 163/87 06/23/21 19:33 Pulse Ox 94 06/23/21 19:33 06/23/21 06/23/21 06/23/21 06:59 14:59 22:59 Intake Total 300 / 300 120 / 420 Balance 300 / 300 120 / 420 Weight last 48 hrs Weight 188 lb 9 oz Weight 200 lb 6.4 oz Physical Exam Narrative: GENERAL: The patient is alert and oriented times three. Not in any acute distress. HEENT: Minimal pallor. No icterus or lymphadenopathy. Oral cavity: There are no mucous membrane lesions. NECK: Trachea appears to be central. No masses noted. No JVD or thyromegaly appreciated. No carotid bruit. RESPIRATORY: Chest is symmetrical. No intercostals muscle retraction or any accessory muscle activation. There is no chest wall tenderness. Breath sounds are heard bilaterally. No rales or rhonchi heard. No evidence of any consolidation. Short systolic murmur in the left sternal border. No diastolic murmurs. Pacemaker site has no hematoma bleeding. BREASTS: Deferred. HEART: The heart sounds are normal. No S3 or S4 ABDOMEN: No vessel pulsations or distention. No tenderness. No organomegaly appreciated. No abdominal bruit. Bowel sounds are normally heard. : Deferred. RECTAL: Deferred. LYMPHATIC: No lymphadenopathy noted in the neck . EXTREMITIES: No edema or cyanosis. No clubbing. Peripheral pulses are palpable but weak bilaterally. MUSCULOSKELETAL: No acute joint deformities or swelling SKIN: There are no significant scars or skin rash noted. NEUROPSYCHIATRIC: The patient is alert and oriented x3. Appears to be in a good mood. The higher functions are grossly within normal limits. No tremors or rigidity noted. Data : 06/23/21 02:40 06/23/21 02:40 A&P Assessment and plan (1) Pacemaker at end of battery life: Status post pacemaker revision. Pacemaker function seems to be appropriate. Lower rate is set at 80/min. Patient has significant improvement of her symptoms. Patient may start on levofloxacin 500 mg p.o. daily for 5 days minus antibiotic prophylaxis. She may take multivitamins daily for 2-week Status: Acute (2) Atrial fibrillation: Patient was placed back on the Coumadin Status: Acute (3) HTN (hypertension): The blood pressure seems to be under control. May continue on the current medications. Continues to optimize antihypertensive medications Status: Acute (4) Blood loss anemia: The hemoglobin seems to be stable Status: Acute Plan If the patient continues remain stable, may be discharged home tomorrow. Appointment [facility] next Wednesday with the nurse practitioner for a wound check and pacemaker check Appointment with me in 1 month Attestations Medical Necessity Statement*: Disposition as per the primary Coding Level of Care Code Acute Safety Grooving Machine Operator for Chg Fwd History Expanded Problem Focused Exam Expanded Problem Focused Medical Decision Making Moderate Complexity Diagnoses Pacemaker at end of battery life Z45.010 Atrial fibrillation I48.91 HTN (hypertension) I10 Blood loss anemia D50.0
--- NOTE | 2021-06-23 23:13 | PC.NURSE ---
Dr. Jacobs gave order to move patient to Med-Surg.
[2021-06-24 00:59] VITALS: BP 165/87; PULSE 80; RESP 16; TEMP 37; O2SAT 93
--- NOTE | 2021-06-24 00:59 | PC.NURSE ---
PATIENT ARRIVIED TO MED SURG FLOOR AT 1210. PATIENT ALERT AND ORIENTED, VSS. PATIENT AMBULATED FROM WHEELCHAIR TO BED WIN ROOM WITH PERSONAL CANE WITH NO DIFFICULTIES. NO COMPLAINTS OF PAIN OR DISCOMFORT VOICED. PATIENT ORIENTED TO ROOM AND REMINDED TO CALL FOR HELP. RESTING IN BED AT THIS TIME WITH CALL LIGHT WITHIN REACH. PATIENT BELONGINGS AT BEDSIDE.
[2021-06-24 04:00] VITALS: BP 153/86; PULSE 80; RESP 17; TEMP 36.7; O2SAT 90
[2021-06-24] MEDS: HYDROcodone-acetaminophen 5-325 mg Tablet 1 TAB PO (04:15)
[2021-06-24 05:00] LABS: Basophils # 0.1 10^3/uL (0.0-0.1); Basophils % 0.8 %; Eosinophils # 0.2 10^3/uL (0.0-0.8); Eosinophils % 2.5 %; Hematocrit 32.8 % (37.0-47.0); Hemoglobin 9.5 g/dL (11.5-15.3); Lymphocytes # 1.8 10^3/uL (0.8-4.8); Lymphocytes % 24.2 %; Mean Corpuscular Hemoglobin 25.8 pg (28.0-34.0); Mean Corpuscular Volume 89.1 fl (81-99); Mean Platelet Volume 11.1 fL (7.4-10.4); Monocytes # 0.5 10^3/uL (0.2-0.9); Monocytes % 7.4 %; Neutrophils # 4.69 10^3/uL (1.8-7.7); Neutrophils % 64.5 %; Nucleated Red Blood Cells % 0 %; Platelet Count 163 10^3/cmm (130-400); Red Blood Count 3.68 10^6/uL (4.1-5.3); Red Cell Distribution Width 19.3 % (12.1-15.1); White Blood Count 7.3 10^3/uL (4.0-10.0)
[2021-06-24 05:24] LABS: Anion Gap 13.8 (5-19); Blood Urea Nitrogen 12 mg/dL (8-23); Calcium 9.1 mg/dL (8.5-10.5); Carbon Dioxide 27 mmol/L (22-29); Chloride 105 mmol/L (98-107); Glucose 114 mg/dL (65-115); Magnesium 1.7 mg/dL (1.7-2.3); Osmolality Calculated 295 mOsm/kg (285-295); Potassium 3.8 mmol/L (3.5-5.1); Sodium 142 mmol/L (136-145)
[2021-06-24] MEDS: levoFLOXacin 500 mg Tablet PO (06:03)
[2021-06-24 07:40] VITALS: BP 165/95; PULSE 79; RESP 20; TEMP 36.8; O2SAT 90
--- NOTE | 2021-06-24 07:40 | PC.NURSE ---
I reported the low 02 level to the nurse. 90% room air
[2021-06-24] MEDS: hyDRALAzine 10 mg Tablet PO (08:11)
[2021-06-24] MEDS: metoprolol succinate ER (24 HR) 100 mg Tablet PO (08:11)
[2021-06-24] MEDS: amlodipine 5 mg Tablet PO (08:11)
[2021-06-24] MEDS: NON-FORMULARY MEDICATION (Lubiprostone [Amitiza] 24 mcg capsule) 24 EACH PO (08:12)
[2021-06-24] MEDS: nystatin 100,000 unit/mL UDC 5 mL 500000 UNIT PO (08:13)
[2021-06-24] MEDS: acetaminophen 325 mg Tablet 650 MG PO (08:13)
[2021-06-24 10:14] LABS: INR 1.16 (0.8-1.2)
[2021-06-24 11:24] VITALS: BP 135/85; PULSE 77; RESP 18; TEMP 36.4; O2SAT 93
--- NOTE | 2021-06-24 11:47 | PM.DCS ---
Discharge Providers Date of Admission: 06/18/21 20:20 Date of Discharge: June 24, 2021 Attending Provider at Admission: Daryn Jacobs DO Attending Provider at Discharge: Armida Antonio MD Primary Care Provider: Neeraj Cardoza MD Diagnoses at Discharge Discharge Diagnosis (1) Pacemaker at end of battery life: Status: Resolved (2) Atrial fibrillation: Status: Acute (3) HTN (hypertension): Status: Acute (4) Blood loss anemia: Status: Resolved Reason for Visit Reason for Visit: abnormal labs Brief History: HPI by Dr. 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 Upon further questioning the patient Cates that she has been feeling unwell for approximately 2 days leading up to hospitalization.? She admits to dyspnea, dyspnea on exertion, lightheaded, dizziness.? She denies fever, rigors, nausea, vomiting, cough, wheeze, abdominal pain, diarrhea, myalgia, chest pain, diaphoresis, palpitations, sensation of rapid heartbeat, sensation knee regular heartbeat.? She denies melena or hematochezia.? In the emergency department she is found to be mildly anemic.? She presents for further evaluation Hospital Course Hospital Course 81-year-old female who presents to the hospital for battery replacement of pacemaker, found to have anemia, EGD unremarkable, she is on Coumadin for A. fib, currently hypertensive, INR reversed with FFP and vitamin K for pacemaker battery replacement. Incidentally found to have anemia and underwent an EGD and colonoscopy which were nondiagnostic. Patient did have polyps that were removed. After discussion with patient warfarin was restarted and she was given an appointment with her primary care doctor to recheck INR and CBC. Iron panel did indicate towards iron deficiency anemia and she was given 1 bag of iron sucrose IV during hospital stay and discharged home on oral iron. Patient also did get 2 units of packed RBC during hospital stay. Admission hemoglobin was 7.7 on discharge hemoglobin was 9.5. Hemoglobin did not drop again during hospital stay. I called patient's primary care physician and discussed her inpatient care. He will be following up with her in his office. Patient will complete 5 days of Levaquin for pacemaker placement and abnormal urinalysis. Urine culture grew E. coli but patient was asymptomatic. Physical Exam Narrative: General: Alert oriented x3, patient seen sitting up in bed appearing comfortable. HEENT: Normocephalic, atraumatic, EOMI, normal respiratory effort. 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 Laboratory Results WBC 7.3 10^3/uL (4.0-10.0) 06/24/21 04:49 RBC 3.68 10^6/uL (4.1-5.3) L 06/24/21 04:49 Hgb 9.5 g/dL (11.5-15.3) L 06/24/21 04:49 Hct 32.8 % (37.0-47.0) L 06/24/21 04:49 MCV 89.1 fl (81-99) 06/24/21 04:49 MCH 25.8 pg (28.0-34.0) L 06/24/21 04:49 MCHC 29.0 g/dL (30.0-36.0) L 06/24/21 04:49 RDW 19.3 % (12.1-15.1) H 06/24/21 04:49 Plt Count 163 10^3/cmm (130-400) 06/24/21 04:49 MPV 11.1 fL (7.4-10.4) H 06/24/21 04:49 Neut % (Auto) 64.5 % 06/24/21 04:49 Lymph % (Auto) 24.2 % 06/24/21 04:49 [place] % (Auto) 7.4 % 06/24/21 04:49 Eos % (Auto) 2.5 % 06/24/21 04:49 Baso % (Auto) 0.8 % 06/24/21 04:49 Neut # (Auto) 4.69 10^3/uL (1.8-7.7) 06/24/21 04:49 Lymph # (Auto) 1.8 10^3/uL (0.8-4.8) 06/24/21 04:49 [place] # (Auto) 0.5 10^3/uL (0.2-0.9) 06/24/21 04:49 Eos # (Auto) 0.2 10^3/uL (0.0-0.8) 06/24/21 04:49 Baso # (Auto) 0.1 10^3/uL (0.0-0.1) 06/24/21 04:49 Nucleated RBC % (auto) 0 % 06/24/21 04:49 Total Counted 100 (0-100) 06/19/21 18:06 Atypical Lymphs % 0.0 % (0-5) 06/19/21 18:06 Absolute Neutrophils 5.4 10^3/cmm (1.4-6.5) 06/19/21 18:06 Segmented Neutrophils 72 % 06/19/21 18:06 Abs Segm Neuts (Man) 5.4 10/cmm (1.6-7.1) 06/19/21 18:06 Band Neutrophils 0.0 % 06/19/21 18:06 Abs Band Neuts (Man) 0.0 10^3/cmm (0.0-1.2) 06/19/21 18:06 Absolute Lymphocytes 1.7 10^3/cmm (1.2-3.4) 06/19/21 18:06 Lymphocytes (Manual) 23 % 06/19/21 18:06 Monocytes (Manual) 2.0 % 06/19/21 18:06 Absolute Monocytes 0.2 10^3/cmm (0.1-0.6) 06/19/21 18:06 Eosinophils (Manual) 3 % 06/19/21 18:06 Absolute Eosinophils 0.2 10^3/cmm (0.0-0.7) 06/19/21 18:06 Basophils (Manual) 0.0 % 06/19/21 18:06 Absolute Basophils 0.0 10^3/cmm (0.0-0.2) 06/19/21 18:06 Nucleated RBCs # 0.0 /100WBC 06/24/21 04:49 Platelet Estimate Normal (Normal) 06/19/21 18:06 PT 15.20 SECONDS (12.1-14.9) H 06/24/21 08:52 INR 1.16 (0.8-1.2) 06/24/21 08:52 APTT 42.4 SECONDS (23.9-36.7) H 06/19/21 04:56 Sodium 142 mmol/L (136-145) 06/24/21 04:49 Potassium 3.8 mmol/L (3.5-5.1) 06/24/21 04:49 Chloride 105 mmol/L (98-107) 06/24/21 04:49 Carbon Dioxide 27 mmol/L (22-29) 06/24/21 04:49 Anion Gap 13.8 (5-19) 06/24/21 04:49 BUN 12 mg/dL (8-23) 06/24/21 04:49 Creatinine 0.8 mg/dL (0.5-0.9) 06/24/21 04:49 GFR Calculation Not Reportable 06/24/21 04:49 Glucose 114 mg/dL (65-115) 06/24/21 04:49 Calculated Osmolality 295 mOsm/kg (285-295) 06/24/21 04:49 Calcium 9.1 mg/dL (8.5-10.5) 06/24/21 04:49 Magnesium 1.7 mg/dL (1.7-2.3) 06/24/21 04:49 Iron 67 ug/dL (37-145) 06/19/21 04:56 TIBC 373 mcg/dl 06/19/21 04:56 % Saturation 17.9 % (20-50) L 06/19/21 04:56 Unsat Iron Binding 306 ug/dL (112-347) 06/19/21 04:56 Ferritin 13 ng/mL (15-150) L 06/19/21 04:56 Total Bilirubin 0.3 mg/dL (0.15-1.2) 06/21/21 04:55 AST 32 U/L (0-32) 06/21/21 04:55 ALT 9 U/L (0-33) 06/21/21 04:55 Alkaline Phosphatase 146 IU/L (35-105) H 06/21/21 04:55 Total Protein 6.6 g/dL (6.6-8.7) 06/21/21 04:55 Albumin 3.6 g/dL (3.5-5.2) 06/21/21 04:55 Globulin 3.0 g/dL (1.3-4.6) 06/21/21 04:55 Vitamin B12 531 pg/mL (232-1245) 06/19/21 04:56 Urine Color Yellow (Yellow) 06/18/21 20:30 Urine Appearance Sl hazy (CLEAR) 06/18/21 20:30 Urine pH 5 (5-7) 06/18/21 20:30 Ur Specific [place] 1.020 (1.005-1.030) 06/18/21 20:30 Urine Protein 1+ (Negative) H 06/18/21 20:30 Urine Glucose (UA) Norm (Normal) 06/18/21 20:30 Urine Ketones Negative (Negative) 06/18/21 20:30 Urine Blood Neg (Negative) 06/18/21 20:30 Urine Nitrate Positive (Negative) H 06/18/21 20:30 Urine Bilirubin Neg (Negative) 06/18/21 20:30 Urine Urobilinogen 1 mg/dL (Negative) H 06/18/21 20:30 Ur Leukocyte Esterase 1+ (Negative) H 06/18/21 20:30 Urine RBC 0-4 /hpf (0-2) H 06/18/21 20:30 Urine WBC 55-80 /hpf (0-5) H 06/18/21 20:30 Ur Squamous Epith Cells 5-10 /hpf (0-5) H 06/18/21 20:30 Amorphous Sediment Not Reportable 06/18/21 20:30 Urine Bacteria 2+ /hpf (NONE) H 06/18/21 20:30 Blood Type B Positive 06/18/21 17:29 Rho(D) Type Positive 06/18/21 17:29 Antibody Screen Negative 06/18/21 17:29 Crossmatch See Detail 06/18/21 17:29 Vitals Last Vital Signs Temp 97.6 F 06/24/21 11:24 Pulse 77 06/24/21 11:24 Resp 18 06/24/21 11:24 BP 135/85 06/24/21 11:24 Pulse Ox 93 06/24/21 11:24 Discharge Plan Discharge Patient Disposition: Home Condition: Stable Prescriptions: New hydralazine 10 mg Tablet 10 mg PO TID 30 Days Qty: 90 0RF amlodipine 5 mg Tablet 5 mg PO DAILY 30 Days Qty: 30 0RF levofloxacin 500 mg Tablet 500 mg PO DAILY@0600 5 Days Qty: 5 0RF ferrous fumarate 324 mg (106 mg iron) tablet 324 mg PO DAILY 30 Days Qty: 30 0RF Continued Amitiza 24 mcg capsule 24 mcg PO BID 0RF aspirin [Adult Low Dose Aspirin] 81 mg tablet,delayed release (DR/EC) 81 mg PO BEDTIME 0RF multivitamin Tablet 1 tab PO DAILY 0RF eszopiclone [Lunesta] 2 mg tablet 2 mg PO BEDTIME 0RF albuterol sulfate [ProAir HFA] 90 mcg/actuation HFA aerosol inhaler 2 puff INHALATION Q6H PRN (Reason: Shortness Of Breath) 0RF hydrocodone-acetaminophen 5-325 mg tablet 1 tab PO BID PRN (Reason: Pain) 0RF warfarin 2.5 mg tablet See Rx Instructions .ROUTE .COMPLEX 0RF Rx Instructions: 2 mg orally on Mon, Weds, Fri and 1 mg orally on , Th, Sat, Sun [facility] Aerosphere 160-9-4.8 mcg/actuation HFA aerosol inhaler 2 inh inhalation DAILY 0RF mupirocin 2 % ointment 1 applic topical BID 14 Days Qty: 22 0RF ropinirole 2 mg tablet 2 mg PO BEDTIME 0RF calcium carbonate-vitamin D3 [Calcium 600 with Vitamin D3] 600 mg(1,500mg) -500 unit capsule 1 cap PO DAILY 0RF metoprolol succinate 50 mg tablet extended release 24 hr See Rx Instructions .ROUTE .COMPLEX 0RF Rx Instructions: 100 mg in the morning/ 50 mg in the evening lansoprazole [Prevacid] 30 mg capsule,delayed release(DR/EC) 30 mg PO BID Qty: 180 3RF Label Comments: pt can only take brand name - pt brought medication with her senna 8.6 mg Tablet See Rx Instructions .ROUTE .COMPLEX 0RF Rx Instructions: 17.2 mg orally in the morning / 8.6 mg orally in the evening pregabalin 150 mg capsule 150 mg PO BID 0RF PreserVision AREDS-2 250-90-40-1 mg Capsule 1 tab PO BID 0RF potassium chloride 10 mEq tablet extended release See Rx Instructions .ROUTE .COMPLEX 0RF Rx Instructions: 10 mEq orally on , , Wednesday Lasix 20 mg tablet See Rx Instructions .ROUTE .COMPLEX 0RF Rx Instructions: 20 mg orally on , , Wednesday hydrocodone-acetaminophen 5-325 mg Tablet 1 tab PO Q4H PRN (Reason: Pain, Mild) 0RF Discontinued amlodipine 5 mg tablet 2.5 mg PO BEDTIME 0RF losartan 50 mg tablet 50 mg PO BEDTIME 0RF eszopiclone [Lunesta] 2 mg Tablet 2 mg PO BEDTIME 0RF Discharge Orders: Discharge Order (Routine); Ordered 06/24/21 Ordered By: Armida Antonio Other Ambulatory Orders: Complete Blood Count w/Auto (Routine) Timeframe: 3 Days Location: Determined by Patient Ordered By: Armida Antonio Complete Blood Count w/Auto (Routine) Timeframe: 8 Days Location: Determined by Patient Ordered By: Armida Antonio Prothrombin Time INR (Routine) Timeframe: 3 Days Facility: [facility] - Location: Lab - Main Lab Ordered By: Armida Antonio Prothrombin Time INR (Routine) Timeframe: 1 Day Facility: [facility] - Location: Lab - Main Lab Ordered By: Armida Antonio Referrals: Neeraj Cardoza MD [Primary Care Provider] - 07/02/21 10:15 am (YOU HAVE A FOLLOW-UP APPOINTMENT WITH DR. CARDOZA ON 07/02/2021 @ 10:15.) Joel Lane MD [Physician] - 07/08/21 11:15 am (YOU HAVE AN APPOINTMENT WITH DR. LANE ON Wednesday07/08/21 AT 11:15 TO DISCUSS EGD AND COLONOSCOPY.) Discharge Diet: Cardiac and Low Salt Discharge Activity: Increase activity as tolerated Patient Instructions: Pacemaker (DC), Iron Rich Diet (DC), Iron Deficiency Anemia (GEN), GI Discharge Instructions, Opioid Safety, Post Pacemaker - Salvatore Discharge Attestations Time Spent in Discharge Care*: greater than 30 min Quality Metrics Clinical Quality Measures [ No reported AMI, CVA or VTE this stay] Coding Level of Care Code Acute Chg FW DC note Diagnoses Pacemaker at end of battery life Z45.010 Atrial fibrillation I48.91 HTN (hypertension) I10 Blood loss anemia D50.0
[2021-06-24] MEDS: warfarin 1 mg Tablet PO (13:17)
[2021-06-24] MEDS: warfarin 2 mg Tablet PO (13:17)
[2021-06-24 13:48] VITALS: BP 135/85; PULSE 77; RESP 18; TEMP 36.4; O2SAT 93
== END 2021-06-24 13:49 | disposition home or self-care (01) | DRG 259 ==
LOC: ER 21:03 → MEDSURG 21:12 → CSU 06-19 22:57 → MEDSURG 06-24 00:18
PROVIDERS: Emergency Medicine; Family Medicine; Internal Medicine; Internal Medicine Cardiovascular Disease; Admitting Provider Internal Medicine; Emergency Provider Emergency Medicine; PCP Family Medicine; Visit Provider Internal Medicine
PROC: 0JH604Z Insertion of Pacemaker, Single Chamber into Chest Subcutaneous Tissue and Fascia, Open Approach (ICD-10-PCS; principal; 2021-06-20 12:00)
PROC: 0DJ08ZZ Inspection of Upper Intestinal Tract, Via Natural or Artificial Opening Endoscopic (ICD-10-PCS; principal; 2021-06-22 08:00)
PROC: 0DJD8ZZ Inspection of Lower Intestinal Tract, Via Natural or Artificial Opening Endoscopic (ICD-10-PCS; CPT 45378; principal; 2021-06-23 11:00)
DX: I48.20 Chronic atrial fibrillation, unspecified (principal); I50.20 Unspecified systolic (congestive) heart failure; N17.9 Acute kidney failure, unspecified; N39.0 Urinary tract infection, site not specified; Z45.010 Encounter for checking and testing of cardiac pacemaker pulse generator [battery]; I25.10 Atherosclerotic heart disease of native coronary artery without angina pectoris; I11.0 Hypertensive heart disease with heart failure; D50.9 Iron deficiency anemia, unspecified; G25.81 Restless legs syndrome; G89.29 Other chronic pain; I07.1 Rheumatic tricuspid insufficiency; I27.20 Pulmonary hypertension, unspecified; K63.5 Polyp of colon; Z79.891 Long term (current) use of opiate analgesic; Z79.51 Long term (current) use of inhaled steroids; Z79.82 Long term (current) use of aspirin; Z66 Do not resuscitate; K58.9 Irritable bowel syndrome, unspecified; E86.0 Dehydration; R13.10 Dysphagia, unspecified; B96.20 Unspecified Escherichia coli [E. coli] as the cause of diseases classified elsewhere; G62.9 Polyneuropathy, unspecified; E66.9 Obesity, unspecified; Z68.38 Body mass index [BMI] 38.0-38.9, adult; K21.9 Gastro-esophageal reflux disease without esophagitis
CPT/HCPCS: 12345; 33212; 36415; 36430; 43235; 45385; 71045; 80048; 80053; 81001; 82274; 82607; 82728; 83540; 83550; 83735; 85007; 85014; 85018; 85025; 85027; 85610; 85730; 86850; 86900; 86920; 86927; 87077; 87086; 87186; 88305; 93005; 96372; 97165; 99213; 99285; C1769; C1786; J0690; J1644; J1756; J1940; J2250; J2405; J2704; J3010; J3370; J3430; J7030; J7050; P9016; P9017

== ENCOUNTER → 2021-06-27 08:53 | Outpatient (BNVA) | payer MEDICARE, MEDICAID, SELFPAY | PROVIDERS: PCP Family Medicine; Visit Provider Internal Medicine | DX: I48.91 Unspecified atrial fibrillation (principal); I10 Essential (primary) hypertension; I25.10 Atherosclerotic heart disease of native coronary artery without angina pectoris; D50.9 Iron deficiency anemia, unspecified; Z95.0 Presence of cardiac pacemaker; Z79.01 Long term (current) use of anticoagulants; Z79.82 Long term (current) use of aspirin | CPT/HCPCS: 99213; 99214 ==

== ENCOUNTER → 2021-07-18 09:04 | Outpatient (BNVA) | payer MEDICARE, MEDICAID, SELFPAY | PROVIDERS: PCP Family Medicine; Visit Provider Nurse Practitioner Family | DX: I11.0 Hypertensive heart disease with heart failure (principal); I50.30 Unspecified diastolic (congestive) heart failure; I48.91 Unspecified atrial fibrillation; Z79.01 Long term (current) use of anticoagulants | CPT/HCPCS: 99214 ==

== ENCOUNTER 2021-08-01 17:43 | Emergency (ER) | payer MEDICARE, MEDICAID, SELFPAY ==
[2021-08-01 17:51] VITALS: BP 136/88; PULSE 81; RESP 20; TEMP 37.2; O2SAT 93; BMI 36.1
--- NOTE | 2021-08-01 18:32 | XRR_ITS ---
PROCEDURE INFORMATION: Exam: XR Chest Exam date and time: 08/01/2021 6:54 PM Age: 81 years old Clinical indication: Cough and shortness of breath; Prior surgery; Surgery date: 6+ months; Surgery type: Pacer; Patient HX: C/O persistent cough and SOB; Additional info: Cough, SOB TECHNIQUE: Imaging protocol: XR of the chest. Views: 1 view. COMPARISON: CR XR chest 2V* [id number] 07/28/2021 2:33 PM FINDINGS: Tubes, catheters and devices: There is a dual-lead cardiac pacer via left subclavian approach. Findings are stable. Lungs: Stable mild interstitial pulmonary edema with right middle lobe and right lower lobe compressive atelectasis, underlying pneumonia cannot be ruled out. Pleural spaces: Stable moderate/large right pleural effusion. No pneumothorax. Heart/Mediastinum: Stable mild enlargement of the cardiac silhouette. Bones/joints: Unremarkable for age. XR/XR chest 1V portable [id number] IMPRESSION: 1. Stable mild interstitial pulmonary edema with right middle lobe and right lower lobe compressive atelectasis, underlying pneumonia in the right middle and lower lobes cannot be ruled out. Recommend followup chest x-ray to ensure resolution. 2. Stable moderate/large right pleural effusion. 3. Incidental/nonacute findings are listed in the report.
--- NOTE | 2021-08-01 18:32 | ECG_ITS ---
[facility] Test Date: 2021-08-01 Pat Name: Megan Das Department: Room: Gender: Female Funeral Assistant: : 1940 Requested By: Kwesi Joya Order Number: [id number] Saranya MD: Iza Birmingham M.D. Measurements Intervals [place] Rate: 80 P: MN: QRS: -65 QRSD: 195 T: 123 QT: 443 QTc: 511 Interpretive Statements ELECTRONIC VENTRICULAR PACEMAKER ABNORMAL RHYTHM ECG Compared to ECG 06/20/2021 16:35:44 No significant changes Electronically Signed On 08-02-2021 10:12:39 CDT by Iza Birmingham M.D. [email or web address]
--- NOTE | 2021-08-01 18:32 | W.ED.CHESTPA ---
HPI - Chest Pain General: Chief Complaint: Chest Pain Stated Complaint: Diff breath and chest Pains Time Seen by Provider: 08/01/21 18:05 History of Present Illness: Ms. Das is an 81-year-old lady with history of hypertension, anemia, CAD, atrial fibrillation, chronic anticoagulation presenting to the emergency department due to shortness of breath and chest discomfort. She reports cough and waxing waning shortness of breath which was relatively mild for a number of weeks now however over the past week this is worsened especially today. She endorses nonproductive cough with significant dyspnea on exertion. She has associated chest discomfort but this is not similar to prior cardiac chest pain. She has generalized malaise but no measured fevers or chills. She saw primary care provider and was initiated on Levaquin which she has taken 2 doses of but continues to worsen. Overall course of symptoms has been worsening. Intensity is moderate to severe. Denies history of home oxygen use, tobaccoism, or COPD. No other specific changes in health, exacerbating, or alleviating factors identified. Onset (ago): week(s) Timing of current episode: increasing Pain location: substernal Severity: mild Quality: aching Review of Systems General: Reports: 10 or more systems reviewed and unremarkable except in HPI and below PFSH ED PFSH: Medical History (Updated 08/14/21 @ 11:22 by Kwesi Joya MD) Atrial fibrillation CAD (coronary artery disease) Diastolic heart failure GERD (gastroesophageal reflux disease) HTN (hypertension) Osteoarthritis Pacemaker Varicose veins of left lower extremity with other complications Surgical History Previous back surgery S/P cardiac pacemaker procedure S/P cataract extraction S/P hysterectomy S/P tubal ligation Family History Father , [place] age 44 Myocardial infarction Social History Smoking and tobacco status: never smoked History of recent travel: No Physical Exam Const: COMMON NORMALS: alert GENERAL APPEARANCE: cooperative and well developed HENMT: COMMON NORMALS: normocephalic and atraumatic HEAD & SCALP: normocephalic and atraumatic Eye: COMMON NORMALS: conjunctivae normal CONJUNCTIVA: Yes conjunctivae normal SCLERA: sclerae normal Neck/C-Spine: COMMON NORMALS: supple GENERAL: Yes trachea midline Resp: EFFORT & INSPECTION: Yes tachypneic AUSCULTATION: rhonchi lower bilaterally, wheezes (End expiratory) and diminished lung sounds on the right in the lower lung francisco Cardio: COMMON NORMALS: regular rate and regular rhythm RATE: regular rate RHYTHM: regular rhythm GI: COMMON NORMALS: Soft to palpation PALPATION: Yes Soft to palpation and No Tenderness to palpation present (GI) PERCUSSION: normal to percussion Extremity: GENERAL: Yes normal exam except as noted and No edema Neuro: COMMON NORMALS: moves all extremities SENSORIUM/ORIENTATION: Yes alert and No Orientation impaired Psych: COMMON NORMALS: mental status grossly normal and Normal thought process present THOUGHT PROCESS: Normal thought process present Skin: NARRATIVE SKIN EXAM: Scattered areas of bruising, reported from previous hospitalization/blood draws Course ED course: - Patient was seen and evaluated by me at bedside - Patient placed on cardiac monitors, IV access obtained - Initial evaluation notable for exam as above - Labs and xrays personally interpreted by me. EKGs showing paced rhythm with no STEMI. - RT treatment given - Labs notable for no leukocytosis, normocytic anemia. Metabolic panel without acute electrolyte disturbance to explain symptoms. Delta troponin is negative. BNP mildly elevated. INR 2.87 - Imaging notable for pulmonary edema and right sided effusion. CT notable for mucous plugging and multiple segmental branches in the right lower lobe as well as atelectasis and/or pneumonia. There is a large right effusion. - Upon serial reexamination after treatment the patient was similar - Based on patient history, evaluation, and testing as interpreted the most likely cause of the patient's condition is shortness of breath associated with effusion - The results of ED evaluation were discussed with the patient including plan for transfer due to requirement for level of care not available if discharged to prevent significant worsening/deterioration. We do not have radiology available to perform procedure over weekend nor do we have pulmonology. I do not believe based on exam the patient is a candidate at this time for/does not require emergent ED thoracentesis. - Discussed case with physician at [facility] in [place] who accepted the patient as transfer - Patient was transported from the emergency department by EMS without further deterioration or significant events. Note: Click bubbles or prepopulated francisco in note writing are used for assistance with data collection and billing and are inherently more limited than narrative and other text portions of this note. Please use narrative for additional clinical history and defer to narrative/free test for any case of contradictory information. If information appears in only free text or click bubble it should be considered present or absent as reported. Please contact note contract technical writer for clarifications of clinical information or contradictory information. MDM is a brief summary, contradictory or erroneous seeming information should be clarified and full note should be reviewed. Vital Signs: Vital signs: Vital Signs Temperature 98.9 F 08/01/21 17:51 Pulse Rate 89 08/02/21 00:22 Respiratory Rate 16 08/02/21 00:22 Blood Pressure 135/97 08/02/21 00:00 Pulse Oximetry 98 08/02/21 00:22 MDM - Chest Pain Medical Decision Making 81-year-old lady on warfarin presenting with increased shortness of breath found to have large right-sided recurrent pleural effusion. Interventional radiology and pulmonology not available therefore patient transferred for definitive management and care. Medical Records I reviewed the patient's medical records. Lab Data I reviewed the patient's lab results. : 08/01/21 18:19 08/01/21 18:19 Radiology Impressions Chest X-Ray 08/01/21 18:32 IMPRESSION: 1. Stable mild interstitial pulmonary edema with right middle lobe and right lower lobe compressive atelectasis, underlying pneumonia in the right middle and lower lobes cannot be ruled out. Recommend followup chest x-ray to ensure resolution. 2. Stable moderate/large right pleural effusion. 3. Incidental/nonacute findings are listed in the report. Chest CT 08/01/21 19:09 IMPRESSION: 1. Mucous plugging in multiple segmental bronchi in the right lower lobe. Right lower lobe airspace disease suggesting atelectasis and/or pneumonia. Recommend followup chest imaging to insure resolution of these findings. 2. Large right pleural effusion extending to the apex, pleural fluid also tracks in the right major and minor fissures. 3. Small volume ascites in the upper abdomen. 4. Stable moderate elevation of the right hemidiaphragm. 5. Stable small hiatal hernia. 6. Incidental/nonacute findings are listed in the report. COMMENTS: Consistent with the [employer]'s Incidental Findings Committee white paper (J Am Lucinda Radiol 2018): Any incidental renal lesion less than 1 cm or classified as too small to characterize, or any incidental cystic renal lesion characterized as simple-appearing, is likely benign. No follow-up imaging is recommended for these lesions per consensus recommendations based on imaging criteria. Laboratory Results WBC 7.1 10^3/uL (4.0-10.0) 08/01/21 18:19 RBC 3.84 10^6/uL (4.1-5.3) L 08/01/21 18:19 Hgb 10.8 g/dL (11.5-15.3) L 08/01/21 18:19 Hct 37.1 % (37.0-47.0) 08/01/21 18:19 MCV 96.6 fl (81-99) 08/01/21 18:19 MCH 28.1 pg (28.0-34.0) 08/01/21 18:19 MCHC 29.1 g/dL (30.0-36.0) L 08/01/21 18:19 RDW 26.4 % (12.1-15.1) H 08/01/21 18:19 Plt Count 190 10^3/cmm (130-400) 08/01/21 18:19 MPV 11.5 fL (7.4-10.4) H 08/01/21 18:19 Neut % (Auto) 67.2 % 08/01/21 18:19 Lymph % (Auto) 20.7 % 08/01/21 18:19 Dickey % (Auto) 8.4 % 08/01/21 18:19 Eos % (Auto) 2.5 % 08/01/21 18:19 Baso % (Auto) 0.6 % 08/01/21 18:19 Neut # (Auto) 4.80 10^3/uL (1.8-7.7) 08/01/21 18:19 Lymph # (Auto) 1.5 10^3/uL (0.8-4.8) 08/01/21 18:19 Dickey # (Auto) 0.6 10^3/uL (0.2-0.9) 08/01/21 18:19 Eos # (Auto) 0.2 10^3/uL (0.0-0.8) 08/01/21 18:19 Baso # (Auto) 0.0 10^3/uL (0.0-0.1) 08/01/21 18:19 Nucleated RBC % (auto) 0 % 08/01/21 18:19 Nucleated RBCs # 0.0 /100WBC 08/01/21 18:19 PT 30.40 SECONDS (12.1-14.9) H 08/01/21 19:40 INR 2.87 (0.8-1.2) H 08/01/21 19:40 APTT 50.9 SECONDS (23.9-36.7) H 08/01/21 19:40 Sodium 141 mmol/L (136-145) 08/01/21 18:19 Potassium 3.5 mmol/L (3.5-5.1) 08/01/21 18:19 Chloride 103 mmol/L (98-107) 08/01/21 18:19 Carbon Dioxide 29 mmol/L (22-29) 08/01/21 18:19 Anion Gap 12.5 (5-19) 08/01/21 18:19 BUN 14 mg/dL (8-23) 08/01/21 18:19 Creatinine 0.9 mg/dL (0.5-0.9) 08/01/21 18:19 GFR Calculation Not Reportable 08/01/21 18:19 Glucose 86 mg/dL (65-115) 08/01/21 18:19 Calculated Osmolality 292 mOsm/kg (285-295) 08/01/21 18:19 Lactic Acid 1.2 mmol/L (0.5-2.2) 08/01/21 19:55 Calcium 8.7 mg/dL (8.5-10.5) 08/01/21 18:19 Total Bilirubin 0.4 mg/dL (0.15-1.2) 08/01/21 18:19 AST 24 U/L (0-32) 08/01/21 18:19 ALT 15 U/L (0-33) 08/01/21 18:19 Alkaline Phosphatase 137 IU/L (35-105) H 08/01/21 18:19 Troponin T Baseline 19 ng/L (0-10) H 08/01/21 18:19 Troponin T 120 Minute 18.57 ng/L (0-10) H 08/01/21 20:35 Delta Troponin T -0.43 ABS# (0-10) L 08/01/21 20:35 Troponin T Hi Sens 6Hr 18.98 ng/L (0-10) H 08/02/21 00:30 Troponin T Hi Sens 6Hr Delta -0.02 ng/L (0-12) L 08/02/21 00:30 NT-Pro-B Natriuret Pep 934 pg/mL (0-450) H 08/01/21 18:19 Total Protein 7.6 g/dL (6.6-8.7) 08/01/21 18:19 Albumin 3.9 g/dL (3.5-5.2) 08/01/21 18:19 Globulin 3.7 g/dL (1.3-4.6) 08/01/21 18:19 Coronavirus 229E (PCR) Not detected (NOT DETECT) 08/01/21 20:03 SARS-CoV-2 (PCR) Not detected (NOT DETECT) 08/01/21 20:03 Discharge Plan Discharge Patient Disposition: Xfer Short-Term Hosp Clinical Impression: Pleural effusion, Hypoxemia, Shortness of breath Condition: Stable Prescriptions: No Action Amitiza 24 mcg capsule 24 mcg PO BID 0RF aspirin [Adult Low Dose Aspirin] 81 mg tablet,delayed release (DR/EC) 81 mg PO BEDTIME 0RF multivitamin Tablet 1 tab PO DAILY 0RF eszopiclone [Lunesta] 2 mg tablet 2 mg PO BEDTIME 0RF albuterol sulfate [ProAir HFA] 90 mcg/actuation HFA aerosol inhaler 2 puff INHALATION Q6H PRN (Reason: Shortness Of Breath) 0RF hydrocodone-acetaminophen 5-325 mg tablet 1 tab PO BID PRN (Reason: Pain) 0RF Breztri Aerosphere 160-9-4.8 mcg/actuation HFA aerosol inhaler 2 inh inhalation DAILY 0RF ropinirole 2 mg tablet 2 mg PO BEDTIME 0RF calcium carbonate-vitamin D3 [Calcium 600 with Vitamin D3] 600 mg(1,500mg) -500 unit capsule 1 cap PO DAILY 0RF furosemide [Lasix] 20 mg tablet 20 mg PO DAILY 0RF metoprolol succinate 100 mg tablet extended release 24 hr 100 mg PO DAILY Qty: 90 0RF warfarin 2 mg tablet 2 mg PO DAILY 0RF Rx Instructions: 2mg MWF, 1mg all other days valsartan 160 mg tablet 160 mg PO DAILY Qty: 90 3RF Hold Instructions: Patient No Longer Taking lansoprazole [Prevacid] 30 mg capsule,delayed release(DR/EC) 30 mg PO BID Qty: 180 3RF Label Comments: pt can only take brand name - pt brought medication with her sennosides [senna] 8.6 mg Tablet See Rx Instructions .ROUTE .COMPLEX 0RF Rx Instructions: 17.2 mg orally in the morning / 8.6 mg orally in the evening pregabalin 150 mg capsule 150 mg PO BID 0RF PreserVision AREDS-2 250-90-40-1 mg Capsule 1 tab PO BID 0RF potassium chloride 10 mEq tablet extended release See Rx Instructions .ROUTE .COMPLEX 0RF Rx Instructions: 10 mEq orally on , , Wednesday hydralazine 10 mg Tablet 10 mg PO TID 0RF nystatin 100,000 unit/mL Suspension 100,000 unit PO BID 0RF Rx Instructions: administer 1/2 of dose in each side of the mouth cetirizine 10 mg Tablet 5 mg PO DAILY 0RF benzonatate 100 mg Capsule 100 mg PO TID PRN (Reason: Cough) 0RF Promethazine VC-Codeine 6.25-5-10 mg/5 mL Syrup 5 ml PO Q6H PRN (Reason: Cough) 0RF levofloxacin 500 mg Tablet 500 mg PO DAILY 0RF ferrous gluconate 324 mg (38 mg iron) Tablet 324 mg PO DAILY 0RF Referrals: Neeraj Cardoza MD [Primary Care Provider] - Coding Level of Care Code ED Film Processing Utility Worker for Chg Fwd Exam Comprehensive
[2021-08-01 18:40] LABS: Basophils % 0.6 %; Eosinophils # 0.2 10^3/uL (0.0-0.8); Eosinophils % 2.5 %; Hematocrit 37.1 % (37.0-47.0); Hemoglobin 10.8 g/dL (11.5-15.3); Lymphocytes # 1.5 10^3/uL (0.8-4.8); Lymphocytes % 20.7 %; Mean Corpuscular HGB Conc 29.1 g/dL (30.0-36.0); Mean Corpuscular Hemoglobin 28.1 pg (28.0-34.0); Mean Corpuscular Volume 96.6 fl (81-99); Mean Platelet Volume 11.5 fL (7.4-10.4); Monocytes # 0.6 10^3/uL (0.2-0.9); Monocytes % 8.4 %; Neutrophils % 67.2 %; Nucleated Red Blood Cells % 0 %; Platelet Count 190 10^3/cmm (130-400); Red Blood Count 3.84 10^6/uL (4.1-5.3); Red Cell Distribution Width 26.4 % (12.1-15.1); White Blood Count 7.1 10^3/uL (4.0-10.0)
[2021-08-01 18:54] LABS: Troponin(5th) Baseline 19 ng/L (0-10)
[2021-08-01 19:03] LABS: Alanine Aminotransferase 15 U/L (0-33); Albumin Level 3.9 g/dL (3.5-5.2); Alkaline Phosphatase 137 IU/L (35-105); Anion Gap 12.5 (5-19); Aspartate Amino Transferase 24 U/L (0-32); Blood Urea Nitrogen 14 mg/dL (8-23); Calcium 8.7 mg/dL (8.5-10.5); Carbon Dioxide 29 mmol/L (22-29); Chloride 103 mmol/L (98-107); Globulin 3.7 g/dL (1.3-4.6); Glucose 86 mg/dL (65-115); NT Pro B Type Natriuretic Pept 934 pg/mL (0-450); Osmolality Calculated 292 mOsm/kg (285-295); Potassium 3.5 mmol/L (3.5-5.1); Sodium 141 mmol/L (136-145); Total Bilirubin 0.4 mg/dL (0.15-1.2); Total Protein 7.6 g/dL (6.6-8.7)
--- NOTE | 2021-08-01 19:09 | CTR_ITS ---
PROCEDURE INFORMATION: Exam: CT Chest Without Contrast; Diagnostic Exam date and time: 08/01/2021 7:40 PM Age: 81 years old Clinical indication: Cough and shortness of breath; Prior surgery; Surgery date: 6+ months; Surgery type: Pacer; Patient HX: C/O persistent cough and SOB; Additional info: Abnormal cxr, eval effusion vs other R lung TECHNIQUE: Imaging protocol: Diagnostic computed tomography of the chest without contrast. Sagittal and coronal reformatted images were created and reviewed. Radiation optimization: All CT scans at this facility use at least one of these dose optimization techniques: automated exposure control; mA and/or kV adjustment per patient size (includes targeted exams where dose is matched to clinical indication); or iterative reconstruction. COMPARISON: 1. CT chest w con* [id number] 12/06/2015 2:08 PM 2. CR XR chest 1V portable [id number] 08/01/2021 6:54 PM RADIATION DOSE METRICS: Total DLP (mGy-cm): 785.8 FINDINGS: Limitations: Evaluation of the mediastinum and vasculature is limited without intravenous contrast. Tubes, catheters and devices: There is a single lead cardiac pacer via left subclavian approach. Trachea: Tracheobronchial structures are patent. Lungs: Mucous plugging in multiple segmental bronchi in the right lower lobe. Right lower lobe airspace disease suggesting atelectasis and/or pneumonia. Large right pleural effusion extending to the apex, pleural fluid also tracks in the right major and minor fissures. No pulmonary parenchymal nodules or masses. Stable moderate elevation of the right hemidiaphragm. Pleural spaces: No pneumothorax. Heart: Stable moderate enlargement of the heart. Calcification of the aortic valve. Mild atherosclerotic calcification in the coronary arteries. Esophagus: The esophagus is unremarkable. Mediastinal space: No mediastinal hematoma. No pneumomediastinum. Lymph nodes: No lymphadenopathy. Vasculature: Mild atherosclerotic changes in the visualized arteries. No evidence for aortic aneurysm. Pulmonary arteries are unremarkable. Other veins: Pulmonary veins are unremarkable. Diaphragm: Stable small hiatal hernia. Liver: The visualized liver is unremarkable. Pancreas: Mild atrophy of the visualized pancreatic parenchyma. Spleen: The visualized spleen is unremarkable. Adrenal glands: The right and left adrenal glands are unremarkable. Kidneys and ureters: Simple cyst in the visualized right kidney measuring 3.2 cm. The visualized left kidney is unremarkable. Intraperitoneal space: Small volume ascites in the upper abdomen. Bones/joints: Bones are diffusely osteopenic. Mild degenerative changes in the visualized spine. Old, mild compression deformity of T3. Soft tissues: The extrathoracic soft tissues are unremarkable. CT/CT chest wo con [id number] IMPRESSION: 1. Mucous plugging in multiple segmental bronchi in the right lower lobe. Right lower lobe airspace disease suggesting atelectasis and/or pneumonia. Recommend followup chest imaging to insure resolution of these findings. 2. Large right pleural effusion extending to the apex, pleural fluid also tracks in the right major and minor fissures. 3. Small volume ascites in the upper abdomen. 4. Stable moderate elevation of the right hemidiaphragm. 5. Stable small hiatal hernia. 6. Incidental/nonacute findings are listed in the report. COMMENTS: Consistent with the [employer]'s Incidental Findings Committee white paper (J Am Lucinda Radiol 2018): Any incidental renal lesion less than 1 cm or classified as too small to characterize, or any incidental cystic renal lesion characterized as simple-appearing, is likely benign. No follow-up imaging is recommended for these lesions per consensus recommendations based on imaging criteria.
--- NOTE | 2021-08-01 19:59 | PC.NURSE ---
patient resting comfortably in bed upon entry. patient in no obivous distress. patient on monitoring specialist. patient presents to er for evaluation of worsening sob , cough, and chest pain upon deep inspiration/cough x 1 week. patient states i was here in january and they had to scope me and chucho been coughing ever since and then last week got worse and went to the doctor on wednesday and they did an xray and told me wednesday i had pneumonia. Chucho only been able to take 2 pills of my levaquin since yesterday. patient on 3 l NC spo2 99% on monitor. Heart sounds strong and regular. LUng sounds diminished right lower lobe shallow but even respirations. Bowel sounds present. skin warm and dry. Side rails raised x 2 and bed in low, locked position. call light within reach. family within reach.
[2021-08-01 20:15] LABS: INR 2.87 (0.8-1.2)
[2021-08-01 20:16] LABS: Partial Thromboplastin Time 50.9 SECONDS (23.9-36.7)
[2021-08-01 20:22] LABS: Lactic Sepsis W/Reflex 1.2 mmol/L (0.5-2.2)
--- NOTE | 2021-08-01 20:32 | ECG_ITS ---
[facility] Test Date: 2021-08-01 Pat Name: Megan Das Department: Room: Gender: Female Plastic Cutter: : 1940 Requested By: Kwesi Joya Order Number: [id number] Saranya MD: Iza Birmingham M.D. Measurements Intervals [place] Rate: 80 P: ND: QRS: -60 QRSD: 158 T: 123 QT: 419 QTc: 483 Interpretive Statements ELECTRONIC VENTRICULAR PACEMAKER ABNORMAL RHYTHM ECG Compared to ECG 08/01/2021 18:01:58 No significant changes Electronically Signed On 08-02-2021 10:18:49 CDT by Iza Birmingham M.D. [id number]
[2021-08-01 21:08] LABS: Troponin 5 2HR 18.57 ng/L (0-10)
[2021-08-01 21:16] LABS: Troponin 5 2HR Delta -0.43 ABS# (0-10)
[2021-08-01 21:50] LABS: Adenovirus Not Detected (NOT DETECT); Chlamydia Pneumoniae Not Detected (NOT DETECT); Coronavirus 229E,HKU1,NL63,OC4 Not Detected (NOT DETECT); Human Metapneumovirus Not Detected (NOT DETECT); Human Rhinovirus/Enterovirus Not Detected (NOT DETECT); Influenza A Not Detected (NOT DETECT); Influenza A H1 Not Detected (NOT DETECT); Influenza A H1-2009 Not Detected (NOT DETECT); Influenza A H3 Not Detected (NOT DETECT); Influenza B Not Detected (NOT DETECT); Mycoplasma Pneumoniae Not Detected (NOT DETECT); Parainfluenza Virus Type 1 Not Detected (NOT DETECT); Parainfluenza Virus Type 2 Not Detected (NOT DETECT); Parainfluenza Virus Type 3 Not Detected (NOT DETECT); Parainfluenza Virus Type 4 Not Detected (NOT DETECT); Respiratory Syncytial Virus A Not Detected (NOT DETECT); Respiratory Syncytial Virus B Not Detected (NOT DETECT); SARS-COV-2 Not Detected (NOT DETECT)
[2021-08-02] VITALS: BP 135/97; PULSE 81; RESP 24; O2SAT 96
--- NOTE | 2021-08-02 00:16 | PC.NURSE ---
patient assisted to bedside commode via female nursing staff with no complicatons. patient in no obvious distress.
[2021-08-02 00:22] VITALS: PULSE 89; RESP 16; O2SAT 98
--- NOTE | 2021-08-02 00:32 | ECG_ITS ---
[facility] Test Date: 2021-08-02 Pat Name: Megan Das Department: Room: Gender: Female Cms Expert: : 1940 Requested By: Kwesi Joya Order Number: [id number] Saranya MD: Romain Cadena M.D. Measurements Intervals [place] Rate: 79 P: [place]: QRS: -62 QRSD: 185 T: 117 QT: 444 QTc: 512 Interpretive Statements ELECTRONIC VENTRICULAR PACEMAKER Compared to ECG 08/01/2021 21:55:03 No significant changes Electronically Signed On 08-02-2021 13:01:24 CDT by Romain Cadena M.D. [id number]
[2021-08-02] MEDS: acetaminophen 500 mg Tablet 1000 MG PO (00:49)
[2021-08-02 01:17] LABS: Troponin 5 6HR 18.98 ng/L (0-10)
[2021-08-02 01:27] LABS: Troponin 5 6HR Delta -0.02 ng/L (0-12)
== END 2021-08-02 01:35 | disposition short-term general hospital (02) ==
PROVIDERS: Emergency Provider Emergency Medicine; PCP Family Medicine
DX: I11.0 Hypertensive heart disease with heart failure (principal); I50.32 Chronic diastolic (congestive) heart failure; J91.8 Pleural effusion in other conditions classified elsewhere; R09.02 Hypoxemia; I25.10 Atherosclerotic heart disease of native coronary artery without angina pectoris; I48.91 Unspecified atrial fibrillation; Z20.822 Contact with and (suspected) exposure to COVID-19; Z79.01 Long term (current) use of anticoagulants; Z79.82 Long term (current) use of aspirin
CPT/HCPCS: 36415; 71045; 71250; 80053; 83605; 83880; 84484; 85025; 85610; 85730; 87040; 87635; 93005; 99285

== ENCOUNTER → 2021-08-07 12:58 | Outpatient (BNVA) | payer MEDICARE, MEDICAID, SELFPAY | PROVIDERS: PCP Family Medicine; Visit Provider Nurse Practitioner Family | DX: I48.91 Unspecified atrial fibrillation (principal); I11.0 Hypertensive heart disease with heart failure; I50.32 Chronic diastolic (congestive) heart failure | CPT/HCPCS: 99214 ==

== ENCOUNTER → 2021-08-20 08:24 | Outpatient (BNVA) | payer MEDICARE, MEDICAID, SELFPAY | PROVIDERS: PCP Family Medicine; Visit Provider Internal Medicine Pulmonary Disease | DX: R05.9 Cough, unspecified (principal); J45.909 Unspecified asthma, uncomplicated; I50.30 Unspecified diastolic (congestive) heart failure; I10 Essential (primary) hypertension; K21.9 Gastro-esophageal reflux disease without esophagitis; R06.02 Shortness of breath | CPT/HCPCS: 36415; 71046; 82785; 83880; 85025; 86003; 99204 ==

== ENCOUNTER → 2021-09-18 08:29 | Outpatient (BNVA) | payer MEDICARE, MEDICAID, SELFPAY | PROVIDERS: PCP Family Medicine; Visit Provider Nurse Practitioner Family | DX: I11.0 Hypertensive heart disease with heart failure (principal); I50.32 Chronic diastolic (congestive) heart failure; I48.91 Unspecified atrial fibrillation; Z95.0 Presence of cardiac pacemaker; I25.10 Atherosclerotic heart disease of native coronary artery without angina pectoris | CPT/HCPCS: 71046; 99214 ==

== ENCOUNTER 2021-10-01 12:40 | Observation (INO) | payer MEDICARE, MEDICAID, SELFPAY ==
[2021-10-01] VITALS (8 sets, daily range): BP systolic 100–137; BP diastolic 57–77; PULSE 80–103; RESP 15–20; TEMP 36.7–37.9; O2SAT 92–99; BMI 33.4
--- NOTE | 2021-10-01 13:15 | W.ED.WEAKNES ---
HPI - Weakness General: Chief complaint: Weakness Stated complaint: GENERALIZED WEAKNESS/ TIRED/ TREMORS Time Seen by Provider: 10/01/21 13:03 PFSH ED PFSH: Medical History Atrial fibrillation CAD (coronary artery disease) Diastolic heart failure GERD (gastroesophageal reflux disease) HTN (hypertension) Osteoarthritis Pacemaker Varicose veins of left lower extremity with other complications Surgical History Previous back surgery S/P cardiac pacemaker procedure S/P cataract extraction S/P hysterectomy S/P tubal ligation Family History Father , [place] age 44 Myocardial infarction Social History Smoking and tobacco status: never smoked History of recent travel: No Course Vital Signs: Vital signs: Vital Signs Pulse Rate 80 10/01/21 12:58 Respiratory Rate 15 10/01/21 12:58 Blood Pressure 112/57 10/01/21 12:58 Pulse Oximetry 98 10/01/21 12:58 Discharge Plan Discharge Condition: Stable Prescriptions: No Action Amitiza 24 mcg capsule 24 mcg PO BID 0RF aspirin [Adult Low Dose Aspirin] 81 mg tablet,delayed release (DR/EC) 81 mg PO BEDTIME 0RF multivitamin Tablet 1 tab PO DAILY 0RF eszopiclone [Lunesta] 2 mg tablet 2 mg PO BEDTIME 0RF albuterol sulfate [ProAir HFA] 90 mcg/actuation HFA aerosol inhaler 2 puff INHALATION Q6H PRN (Reason: Shortness Of Breath) 0RF hydrocodone-acetaminophen 5-325 mg tablet 1 tab PO BID PRN (Reason: Pain) 0RF Breztri Aerosphere 160-9-4.8 mcg/actuation HFA aerosol inhaler 2 inh inhalation DAILY 0RF ropinirole 2 mg tablet 2 mg PO BEDTIME 0RF calcium carbonate-vitamin D3 [Calcium 600 with Vitamin D3] 600 mg(1,500mg) -500 unit capsule 1 cap PO DAILY 0RF montelukast [Singulair] 10 mg tablet 10 mg PO DAILY Qty: 30 3RF metoprolol succinate 100 mg tablet extended release 24 hr 100 mg PO DAILY Qty: 90 0RF warfarin 2 mg tablet 2 mg PO DAILY 0RF Rx Instructions: 2mg MWF, 1mg all other days lansoprazole [Prevacid] 30 mg capsule,delayed release(DR/EC) 30 mg PO BID Qty: 180 3RF Label Comments: pt can only take brand name - pt brought medication with her furosemide [Lasix] 20 mg tablet 40 mg PO DAILY PRN (Reason: edema) Qty: 90 1RF potassium chloride 20 mEq tablet extended release 20 meq PO DAILY PRN (Reason: Take with Furosemide) Qty: 90 3RF sennosides [senna] 8.6 mg Tablet See Rx Instructions .ROUTE .COMPLEX 0RF Rx Instructions: 17.2 mg orally in the morning / 8.6 mg orally in the evening pregabalin 150 mg capsule 150 mg PO BID 0RF PreserVision AREDS-2 250-90-40-1 mg Capsule 1 tab PO BID 0RF nystatin 100,000 unit/mL Suspension 100,000 unit PO BID 0RF Rx Instructions: administer 1/2 of dose in each side of the mouth benzonatate 100 mg Capsule 100 mg PO TID PRN (Reason: Cough) 0RF ferrous gluconate 324 mg (38 mg iron) Tablet 324 mg PO DAILY 0RF cetirizine 10 mg tablet 10 mg PO DAILY 0RF Referrals: Neeraj Cardoza MD [Primary Care Provider] - Coding Level of Care Code ED Mixer Operator Tablets for Arturo Granados
--- NOTE | 2021-10-01 13:17 | ED_ITS ---
HPI - General Adult General: Chief complaint: Weakness Stated complaint: GENERALIZED WEAKNESS/ TIRED/ TREMORS Time Seen by Provider: 10/01/21 13:03 History of Present Illness: Patient is an 81-year-old female with a history of atrial fibrillation on warfarin, CAD, diastolic heart failure, hypertension, pacemaker dependence who presents the emergency room with concerns of generalized weakness, lightheadedness, chest pressure and near syncope with fall. Since yesterday night, patient has had fatigue and increased lightheadedness. This morning, patient felt very lightheaded had an episode of chest pressure followed by it and an episode of fall. Patient tells me that she hit her head and has complaints of right knee and right hand pain. Patient denies any shortness of breath, cough, runny nose, sore throat, fever or chills. Patient denies any abdominal complaints, but has not had any breakfast today. Patient denies any decreased p.o. intake, nausea/vomiting, diarrhea, melena/hematochezia. Patient has no complaints currently. Onset: yesterday night Duration:ongoing Location:home Severity:moderate Associated symptoms: Reports chest pain and malaise; Deny dyspnea, nausea, rash, palpitations or vomiting Review of Systems Const: Reports: malaise and other (+generalized weakness); Denies: fever(s) or chills Eyes: Denies: change in vision ENMT: Denies: mouth pain Card: Reports: chest pain; Denies: palpitations Resp: Denies: dyspnea or non-productive cough GI: Denies: abdominal pain, nausea, vomiting or diarrhea : Denies: dysuria Musc: Denies: extremity pain Skin/Breast: Denies: rash or new lesions Neuro: Reports: other (+light-headedness); Denies: weakness in extremities Psych: Reports: other (Normal mood) Rony/Lymph: Denies: easy bruising PFSH ED PFSH: Medical History Atrial fibrillation CAD (coronary artery disease) Diastolic heart failure GERD (gastroesophageal reflux disease) HTN (hypertension) Osteoarthritis Pacemaker Varicose veins of left lower extremity with other complications Surgical History Previous back surgery S/P cardiac pacemaker procedure S/P cataract extraction S/P hysterectomy S/P tubal ligation Family History Father , [place] age 44 Myocardial infarction Social History Smoking and tobacco status: never smoked History of recent travel: No Physical Exam Const: COMMON NORMALS: alert HENMT: COMMON NORMALS: atraumatic HEAD & SCALP: atraumatic MOUTH: moist mucous membranes not abnormal Eye: COMMON NORMALS: EOMs intact bilaterally and conjunctivae normal CONJUNCTIVA: Yes conjunctivae normal Neck/C-Spine: COMMON NORMALS: full ROM and supple Resp: COMMON NORMALS: normal respiratory effort and clear to auscultation bilaterally AUSCULTATION: clear to auscultation bilaterally Cardio: COMMON NORMALS: regular rate RATE: regular rate GI: COMMON NORMALS: Soft to palpation and non-tender PALPATION: Yes Soft to palpation OTHER: No focal TTP. NO guarding rebound, guarding, rigidity. No CVA tenderness to percussion. Neg Pandya/Neg McBurney's point tenderness, no suprabupic tenderness to palpation. Extremity: COMMON NORMALS: full ROM OTHER: + Range of motion right knee intact, 2+ DP/PT pulses on the right side, cap refill less than 3 seconds on the right side, sensation intact in the right leg, patient has mild tenderness palpation over the right knee with any significant swelling/warmth, or deformity Neuro: SENSORIUM/ORIENTATION: Yes alert MOTOR EXAM: No Abnormal motor strength present and Other motor observations present (no focal motor deficits) Psych: COMMON NORMALS: speech normal SPEECH: Yes normal speech MOOD & AFFECT: Yes euthymic mood Course Vital Signs: Vital signs: Vital Signs Temperature 98.2 F 10/03/21 12:00 Pulse Rate 74 10/03/21 12:00 Respiratory Rate 15 10/03/21 12:00 Blood Pressure 124/73 10/03/21 12:00 Pulse Oximetry 96 10/03/21 12:00 [facility] - General Adult Medical Decision Making 81-year-old female history of CAD, diastolic heart failure, hypertension, atrial fibrillation on warfarin presenting to the emergency room for evaluation of generalized weakness, lightheadedness, fall, and chest pressure. On physical exam, patient is hemodynamically stable. Patient has mild right knee tenderness palpation without any gross swelling or deformity of the knee. Neurovascular exam intact in the right lower extremity. Imaging studies negative for any acute findings. Patient is noted to have a creatinine 1.4 up from baseline. Patient is noted to have low-grade fever 100.2 with a white count of 110.5. Patient received Tylenol. UA pending at this time. Lipase slightly elevated today at 123. Patient has no complaints abdominal pain. Patient will be into the hospital for rehydration and observation. Disposition: admission Lab Data : 10/03/21 05:48 10/03/21 05:48 Radiology Impressions Chest X-Ray 10/01/21 13:18 IMPRESSION: Possible increasing right pleural effusion compared to the previous examination of 09/18/2021. Hand X-Ray 10/01/21 13:18 IMPRESSION: No acute bony or joint abnormality identified. Head CT 10/01/21 13:18 IMPRESSION: 1. No evidence of intracranial hemorrhage or mass effect. 2. Mild small vessel changes. Mild parenchymal volume loss. 3. No acute intracranial findings. 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 No acute abnormality identified. Abdomen/Pelvis CT 10/01/21 15:50 IMPRESSION: 1. Cholelithiasis and distended gallbladder 2. Study somewhat limited to patient respiratory motion. No definite acute finding however is identified. COMMENTS: Consistent with the [employer]'s Incidental Findings Committee white paper (J Am Lucinda Radiol 2018): Any incidental renal lesion less than 1 cm or classified as too small to characterize, or any incidental cystic renal lesion characterized as simple-appearing, is likely benign. No follow-up imaging is recommended for these lesions per consensus recommendations based on imaging criteria. Gallbladder Ultrasound 10/02/21 07:29 IMPRESSION: 1. Mildly distended gallbladder with stones and a small amount of sludge. Mild acute cholecystitis should be considered. Mild hydrops could be related to prolonged fasting. 2. No bile duct dilatation. 3. Mild hepatic steatosis and moderate hepatomegaly. Ankle X-Ray 10/02/21 10:33 IMPRESSION: No acute findings. Chest Ultrasound 10/02/21 19:23 IMPRESSION: No RIGHT pleural effusion. Foot X-Ray 10/03/21 12:02 IMPRESSION: No acute abnormality. Stable chronic changes. Laboratory Results WBC 10.5 10^3/uL (4.0-10.0) H 10/01/21 14:22 RBC 4.02 10^6/uL (4.1-5.3) L 10/01/21 14: Hgb 12.8 g/dL (11.5-15.3) 10/01/21 14: Hct 40.2 % (37.0-47.0) 10/01/21 14: MCV 100.0 fl (81-99) H 10/01/21 14:22 MCH 31.8 pg (28.0-34.0) 10/01/21 14: MCHC 31.8 g/dL (30.0-36.0) 10/01/21 14: RDW 15.7 % (12.1-15.1) H 10/01/21 14: Plt Count 224 10^3/cmm (130-400) 10/01/21 14:22 MPV 11.4 fL (7.4-10.4) H 10/01/21 14: Neut % (Auto) 70.0 % 10/01/21 14:22 Lymph % (Auto) 20.2 % 10/01/21 14:22 Yancey % (Auto) 7.6 % 10/01/21 14: Eos % (Auto) 1.0 % 10/01/21: Baso % (Auto) 0.8 % 10/01/21: Neut # (Auto) 7.36 10^3/uL (1.8-7.7) 10/01/21 14: Lymph # (Auto) 2.1 10^3/uL (0.8-4.8) 10/01/21 14:22 Yancey # (Auto) 0.8 10^3/uL (0.2-0.9) 10/01/21 14: Eos # (Auto) 0.1 10^3/uL (0.0-0.8) 10/01/21: Baso # (Auto) 0.1 10^3/uL (0.0-0.1) 10/01/21 14: Nucleated RBC % (auto) 0 % 10/01/21 14: Nucleated RBCs # 0.0 /100WBC 10/01/21 14: PT 19.00 SECONDS (12.1-14.9) H 10/01/21 14:22 INR 1.56 (0.8-1.2) H 10/01/21 14:22 APTT 34.5 SECONDS (23.9-36.7) 10/01/21 14:22 Sodium 137 mmol/L (136-145) 10/01/21 14:22 Potassium 4.4 mmol/L (3.5-5.1) 10/01/21 14:22 Chloride 97 mmol/L (98-107) L 10/01/21 14:22 Carbon Dioxide 28 mmol/L (22-29) 10/01/21 14:22 Anion Gap 16.4 (5-19) 10/01/21 14:22 BUN 33 mg/dL (8-23) H 10/01/21 14:22 Creatinine 1.4 mg/dL (0.5-0.9) H 10/01/21 14:22 GFR Calculation Not Reportable 10/01/21 14:22 Glucose 97 mg/dL (65-115) 10/01/21 14:22 Calculated Osmolality 291 mOsm/kg (285-295) 10/01/21 14:22 Calcium 9.4 mg/dL (8.5-10.5) 10/01/21 14:22 Total Bilirubin 0.5 mg/dL (0.15-1.2) 10/01/21 14:22 AST 39 U/L (0-32) H 10/01/21 14:22 ALT 17 U/L (0-33) 10/01/21 14:22 Alkaline Phosphatase 177 IU/L (35-105) H 10/01/21 14:22 Troponin T Baseline 26 ng/L (0-10) H 10/01/21 14:22 Troponin T 120 Minute 25.93 ng/L (0-10) H 10/01/21 16:15 Delta Troponin T -0.07 ABS# (0-10) L 10/01/21 16:15 Total Protein 8.0 g/dL (6.6-8.7) 10/01/21 14:22 Albumin 4.1 g/dL (3.5-5.2) 10/01/21 14:22 Globulin 3.9 g/dL (1.3-4.6) 10/01/21 14:22 Lipase 123 U/L (13-60) H 10/01/21 14:22 TSH 3.13 uIU/mL (0.27-4.20) 10/01/21 14: Free T4 1.24 ng/dL (0.82-1.77) 10/01/21 14:22 Urine Color Yellow (Yellow) 10/01/21 15:30 Urine Appearance Clear (CLEAR) 10/01/21 15:30 Urine pH 7 (5-7) 10/01/21 15:30 Ur Specific [place] 1.005 (1.005-1.030) 10/01/21 15:30 Urine Protein Neg (Negative) 10/01/21 15:30 Urine Glucose (UA) Norm (Normal) 10/01/21 15:30 Urine Ketones Negative (Negative) 10/01/21 15:30 Urine Blood Neg (Negative) 10/01/21 15:30 Urine Nitrate Positive (Negative) H 10/01/21 15:30 Urine Bilirubin Neg (Negative) 10/01/21 15:30 Urine Urobilinogen Norm mg/dL (Negative) 10/01/21 15:30 Ur Leukocyte Esterase Negative (Negative) 10/01/21 15:30 Urine RBC 0-4 /hpf (0-2) H 10/01/21 15:30 Urine WBC 0-4 /hpf (0-5) H 10/01/21 15:30 Ur Squamous Epith Cells 0-4 /hpf (0-5) H 10/01/21 15:30 Amorphous Sediment Not Reportable 10/01/21 15:30 Urine Bacteria 3+ /hpf (NONE) H 10/01/21 15:30 Influenza Type A Ag Negative (Negative) 10/01/21 14:22 Influenza Type B Ag Negative (Negative) 10/01/21 14:22 SARS-CoV-2 Ag (Rapid) Negative (Negative) 10/01/21 14:22 Imaging Data Other Imaging: Radiologist's impression: [address] [address] XRay Report Signed Patient: Megan Das Unit #: [id number] : 1940 Age/Sex: 81 / F ADM Date: 10/01/21 Loc: ER Room/Bed: Attending Dr: Ordering Provider/Ordering MD: Raiza Cali MD Date of Service: 10/01/21 Procedure(s): XR knee RT 1-2V 88090 Accession Number(s): [id number] Report Number: [id number] WS: [email or web address] XR knee RT 1-2V 38004 REASON FOR EXAM: R knee pain FINDINGS: No fracture identified. Mild narrowing of the medial knee joint space. Moderate to significant narrowing of the lateral knee joint space with subchondral sclerosis and marginal osteophytosis. Mild to moderate narrowing of the patellofemoral joint space with mild subchondral sclerosis and small osteophytosis of the patella. No soft tissue abnormality. XR/XR knee RT 1-2V 30581 IMPRESSION: Osteoarthritis in the lateral knee joint space. No acute abnormality identified. ? ? ? Dictated By: José Rollins Jr, MD Signed By: José Rollins Jr, MD Signed Date/Time: 10/01/21 1400 DD/ [address] [address] XRay Report Signed Patient: Megan Das Unit #: [id number] : 1940 Age/Sex: 81 / F ADM Date: 10/01/21 Loc: ER Room/Bed: Attending Dr: Ordering Provider/Ordering MD: Raiza Cali MD Date of Service: 10/01/21 Procedure(s): XR hand RT min 3V* 67385 Accession Number(s): [id number] Report Number: [id number] WS: [email or web address] XR hand RT min 3V* 69035 REASON FOR EXAM: fall FINDINGS: No fracture is identified. Moderately decreased bone density. Mild changes of osteoarthritis in the DIP and PIP joints of the fingers and thumb as well as the metatarsal-phalangeal joint and carpal metacarpal joint of the thumb. Old healed fracture of the distal right radius. XR/XR hand RT min 3V* 93859 IMPRESSION: No acute bony or joint abnormality identified. ? ? Dictated By: José Rollins Jr, MD Signed By: José Rollins Jr, MD Signed Date/Time: 10/01/21 1346 DD/ [address] [place] [id number] XRay Report Signed Patient: Megan Das Unit #: [id number] : 1940 Age/Sex: 81 / F ADM Date: 10/01/21 Loc: ER Room/Bed: Attending Dr: Ordering Provider/Ordering MD: Raiza Cali MD Date of Service: 10/01/21 Procedure(s): XR chest 1V portable 70321 Accession Number(s): [id number] Report Number: [id number] WS: [email or web address] XR chest 1V portable 41553 REASON FOR EXAM: generalized weakness FINDINGS: Cardiac device overlying the left chest with single the transverse left subclavian vein to the right ventricular apex. Moderate tortuosity and ectasia of the thoracic aorta. Cardiomegaly. Compared to previous examination of 09/18/2021 there may be an increase in the right pleural fluid volume. There is continued atelectasis in the right lower lung. No interval change in the left lung. XR/XR chest 1V portable 16887 IMPRESSION: Possible increasing right pleural effusion compared to the previous examination of 09/18/2021. ? ? Dictated By: José Rollins Jr, MD Signed By: José Rollins Jr, MD Signed Date/Time: 10/01/21 1343 DD/ [address] [address] [address] Scan Report Signed Patient: Megan Das Unit #: [id number] : 1940 Age/Sex: 81 / F ADM Date: 10/01/21 Loc: ER Room/Bed: Attending Dr: Ordering Provider/Ordering MD: Raiza Cali MD Date of Service: 10/01/21 Procedure(s): CT head wo con* 22239 Accession Number(s): [id number] Report Number: [id number] WS: [email or web address] CT HEAD TECHNIQUE: Noncontrast CT of the head obtained from the skullbase to the vertex. CLINICAL INFORMATION: fall COMPARISON: CT 9 016 DLP: 1218.[address] scans at [facility] use at least one of these dose optimization techniques: automated exposure control; mA and/or kV adjustment per patient size (includes targeted exams where dose is matched to clinical indication); or iterative reconstruction. FINDINGS: No evidence of intracranial hemorrhage or mass effect. Ventricular system and basal cisterns are patent. Mild small vessel changes with mild parenchymal volume loss. No extra-axial fluid collections. No evidence of mass or mass effect. Cavernous carotid calcification. Small retention cyst or polyp inferior RIGHT maxillary sinus. CT/CT head wo con* 75576 IMPRESSION: ? 1.? No evidence of intracranial hemorrhage or mass effect. 2.? Mild small vessel changes. Mild parenchymal volume loss. 3.? No acute intracranial findings. ? Dictated By: Kaveh Michele MD Signed By: Kaveh Michele MD Signed Date/Time: 10/01/211418 DD/ 140 Discharge Plan Discharge Patient Disposition: Admitted As Inpatient Admit Provider: Armida Antonio Clinical Impression: Pleural effusion, Acute kidney injury superimposed on CKD, Dehydration, Acute UTI Condition: Stable Discharge Diet: Cardiac Discharge Activity: Increase activity as tolerated Coding Level of Care Code ED Field Research Associate for Chg Fwd Exam Comprehensive
--- NOTE | 2021-10-01 13:18 | XR_ITS ---
WS: [email or web address] XR chest 1V portable 05083 REASON FOR EXAM: generalized weakness FINDINGS: Cardiac device overlying the left chest with single the transverse left subclavian vein to the right ventricular apex. Moderate tortuosity and ectasia of the thoracic aorta. Cardiomegaly. Compared to previous examination of 09/18/2021 there may be an increase in the right pleural fluid volu me. There is continued atelectasis in the right lower lung. No interval change in the left lung. XR/XR chest 1V portable [id number] IMPRESSION: Possible increasing right pleural effusion compared to the previous examination of 09/18/2021.
--- NOTE | 2021-10-01 13:18 | XR_ITS ---
WS: [email or web address] XR hand RT min 3V* 16689 REASON FOR EXAM: fall FINDINGS: No fracture is identified. Moderately decreased bone density. Mild changes of osteoarthritis in the DIP and PIP joints of the fingers and thumb as well as the meta tarsal-phalangeal joint and carpal metacarpal joint of the thumb. Old healed fracture of the distal right radius. XR/XR hand RT min 3V* 08753 IMPRESSION: No acute bony or joint abnormality identified.
--- NOTE | 2021-10-01 13:18 | CT_ITS ---
WS: [email or web address] CT HEAD TECHNIQUE: Noncontrast CT of the head obtained from the skullbase to the vertex. CLINICAL INFORMATION: fall COMPARISON: CT 9 ,016 DLP: 1218.[address] scans at [facility] use at least one of these dose optimization techniques: automated e xposure control; mA and/or kV adjustment per patient size (includes targeted exams where dose is matc hed to clinical indication); or iterative reconstruction. FINDINGS: No evidence of intracranial hemorrhage or mass effect. Ventricular system and basal cisterns are sheets nt. Mild small vessel changes with mild parenchymal volume loss. No extra-axial fluid collections. No evidence of mass or mass effect. Cavernous carotid calcification. Small retention cyst or polyp inferior RIGHT maxillary sinus. CT/CT head wo con* 89621 IMPRESSION: 1. No evidence of intracranial hemorrhage or mass effect. 2. Mild small vessel changes. Mild parenchymal volume loss. 3. No acute intracranial findings.
--- NOTE | 2021-10-01 13:18 | ECG_ITS ---
[facility] Test Date: 2021-10-01 Pat Name: Megan Das Department: Room: Gender: Female [employer]: : 1940 Requested By: Raiza Cali Order Number: [id number] Saranya MD: Romain Cadena M.D. Measurements Intervals [place] Rate: 82 P: 86 NV: 274 QRS: -73 QRSD: 188 T: 88 QT: 428 QTc: 500 Interpretive Statements ELECTRONIC VENTRICULAR PACEMAKER Compared to ECG 08/02/2021 00:23:16 No significant changes Electronically Signed On 10-01-2021 16:27:55 CDT by Romain Cadena M.D. [id number]
--- NOTE | 2021-10-01 13:18 | XR_ITS ---
WS: [email or web address] XR knee RT 1-2V 91212 REASON FOR EXAM: R knee pain FINDINGS: No fracture identified. Mild narrowing of the medial knee joint space. Moderate to significant narrowing of the lateral knee joint space with subchondral sclerosis and regina inal osteophytosis. Mild to moderate narrowing of the patellofemoral joint space with mild subchondral sclerosis and smal l osteophytosis of the patella. No soft tissue abnormality. XR/XR knee RT 1-2V 37504 IMPRESSION: Osteoarthritis in the lateral knee joint space. No acute abnormality identified.
[2021-10-01 14:48] LABS: INR 1.56 (0.8-1.2)
[2021-10-01 14:49] LABS: Basophils # 0.1 10^3/uL (0.0-0.1); Basophils % 0.8 %; Eosinophils # 0.1 10^3/uL (0.0-0.8); Hematocrit 40.2 % (37.0-47.0); Hemoglobin 12.8 g/dL (11.5-15.3); Lymphocytes # 2.1 10^3/uL (0.8-4.8); Lymphocytes % 20.2 %; Mean Corpuscular HGB Conc 31.8 g/dL (30.0-36.0); Mean Corpuscular Hemoglobin 31.8 pg (28.0-34.0); Mean Platelet Volume 11.4 fL (7.4-10.4); Monocytes # 0.8 10^3/uL (0.2-0.9); Monocytes % 7.6 %; Neutrophils # 7.36 10^3/uL (1.8-7.7); Nucleated Red Blood Cells % 0 %; Platelet Count 224 10^3/cmm (130-400); Red Blood Count 4.02 10^6/uL (4.1-5.3); Red Cell Distribution Width 15.7 % (12.1-15.1); White Blood Count 10.5 10^3/uL (4.0-10.0)
[2021-10-01 14:50] LABS: Partial Thromboplastin Time 34.5 SECONDS (23.9-36.7)
[2021-10-01 15:01] LABS: Influenza A by IFA Negative (Negative); Influenza B by IFA Negative (Negative); SARS Covid-2 Antigen Negative (Negative)
[2021-10-01 15:03] LABS: Troponin(5th) Baseline 26 ng/L (0-10)
[2021-10-01 15:11] LABS: Alanine Aminotransferase 17 U/L (0-33); Albumin Level 4.1 g/dL (3.5-5.2); Alkaline Phosphatase 177 IU/L (35-105); Anion Gap 16.4 (5-19); Blood Urea Nitrogen 33 mg/dL (8-23); Calcium 9.4 mg/dL (8.5-10.5); Carbon Dioxide 28 mmol/L (22-29); Chloride 97 mmol/L (98-107); Free T4 Free Thyroxine 1.24 ng/dL (0.82-1.77); Globulin 3.9 g/dL (1.3-4.6); Glucose 97 mg/dL (65-115); Lipase 123 U/L (13-60); Osmolality Calculated 291 mOsm/kg (285-295); Potassium 4.4 mmol/L (3.5-5.1); Sodium 137 mmol/L (136-145); Thyroid Stimulating Hormone 3.13 uIU/mL (0.27-4.20); Total Bilirubin 0.5 mg/dL (0.15-1.2)
[2021-10-01 15:12] LABS: Aspartate Amino Transferase 39 U/L (0-32)
--- NOTE | 2021-10-01 15:18 | ECG_ITS ---
[facility] Test Date: 2021-10-01 Pat Name: Megan Das Department: Room: Gender: Female Huc: : 1940 Requested By: Raiza Cali Order Number: [id number] Saranya MD: Romain Cadena M.D. Measurements Intervals [place] Rate: 80 P: DC: QRS: -66 QRSD: 186 T: 105 QT: 440 QTc: 508 Interpretive Statements ELECTRONIC VENTRICULAR PACEMAKER ABNORMAL RHYTHM ECG Compared to ECG 10/01/2021 14:22:52 No significant changes Electronically Signed On 10-01-2021 16:32:54 CDT by Romain Cadena M.D. [email or web address] medical [email or web address]/[id number]
--- NOTE | 2021-10-01 15:50 | CTR_ITS ---
PROCEDURE INFORMATION: Exam: CT Abdomen And Pelvis Without Contrast Exam date and time: 10/01/2021 5:58 PM Age: 81 years old Clinical indication: Prior surgery; Surgery type: Tubal ligation; Patient HX: Elevated lipase. Patient C/O back pain. ; Additional info: Elevated lipase per Dr nielson TECHNIQUE: Imaging protocol: Computed tomography of the abdomen and pelvis without contrast. Radiation optimization: All CT scans at this facility use at least one of these dose optimization techniques: automated exposure control; mA and/or kV adjustment per patient size (includes targeted exams where dose is matched to clinical indication); or iterative reconstruction. COMPARISON: CR Abdomen Series Acute [id number] 04/17/2017 8:18 AM RADIATION DOSE METRICS: Total DLP (mGy-cm): 1441.56 FINDINGS: Limitations: Study is somewhat limited by patient respiratory motion. Lungs: There is some partial atelectasis medially at the right lung base. There is also some platelike atelectasis in the middle lobe. Diaphragm: There is a small hiatal hernia. Liver: There is no focal abnormality within the liver. Gallbladder and bile ducts: There is moderate hydrops of the gallbladder which measures 4.4 cm in greatest diameter and over 10 cm in length. A calcified gallstone is present. Assessment of gallbladder wall thickness is limited due to patient respiratory motion. There may be some sludge in the dependent portion the gallbladder. Pancreas: Pancreas is moderately atrophic but otherwise unremarkable. Evaluation region pancreatic head is somewhat limited due to patient respiratory motion. Spleen: The spleen is normal. Adrenal glands: The adrenal glands are normal. Kidneys and ureters: 3 cm cyst mid right kidney. The left kidney is normal. There is no evidence of hydronephrosis. There is no evidence of renal or ureteral calcifications. Stomach and bowel: There is no evidence of intestinal obstruction. There is no evidence of colitis/diverticulitis. Appendix: A normal appendix is identified. Intraperitoneal space: There is no evidence of free intraperitoneal fluid. Vasculature: The aorta demonstrates mild atherosclerotic calcification. There is no evidence of an abdominal aortic aneurysm. Lymph nodes: There is no evidence of lymphadenopathy. Urinary bladder: Unremarkable as visualized. Reproductive: There has been a hysterectomy. Bones/joints: Unremarkable. No acute fracture. Soft tissues: Unremarkable. Other findings: There is calcified granulomaLimitations: The absence of intravenous contrast lessens the sensitivity of this study for solid organ abnormalities. CT/CT abdomen pelvis wo con [id number] IMPRESSION: 1. Cholelithiasis and distended gallbladder 2. Study somewhat limited to patient respiratory motion. No definite acute finding however is identified. COMMENTS: Consistent with the [employer]'s Incidental Findings Committee white paper (J Am Lucinda Radiol 2018): Any incidental renal lesion less than 1 cm or classified as too small to characterize, or any incidental cystic renal lesion characterized as simple-appearing, is likely benign. No follow-up imaging is recommended for these lesions per consensus recommendations based on imaging criteria.
--- NOTE | 2021-10-01 15:51 | PM.HP ---
Providers/Chief Complaint Primary Care Provider: Neeraj Cardoza MD Chief Complaint: GENERALIZED WEAKNESS/ TIRED/ TREMORS History of Present Illness Megan Das is a 81 year old female Medications/Allergies Home Medications Medication Instructions Recorded Confirmed Last Taken Type albuterol sulfate 90 mcg/actuation 2 puff INHALATION Q6H PRN 05/16/19 09/18/21 03/11/21 History aerosol inhaler (ProAir HFA) aspirin 81 mg tablet,delayed 81 mg PO BEDTIME 05/16/19 09/18/21 06/17/21 History release (Adult Low Dose Aspirin) eszopiclone 2 mg tablet (Lunesta) 2 mg PO BEDTIME 05/16/19 09/18/21 06/17/21 History hydrocodone 5 mg-acetaminophen 325 1 tab PO BID PRN 05/16/19 09/18/21 06/18/21 History mg tablet lubiprostone 24 mcg capsule 24 mcg PO BID 05/16/19 09/18/21 06/18/21 History (Amitiza) multivitamin 1 tab PO DAILY 05/16/19 09/18/21 06/18/21 History ropinirole 2 mg tablet 2 mg PO BEDTIME 10/11/20 09/18/21 06/17/21 History budesonide 160 mcg-glycopyr 9 2 inh INHALATION DAILY 02/13/21 09/18/21 06/18/21 History mcg-formot 4.8 mcg/actuation HFA inhaler (Breztri Aerosphere) calcium carbonate 600 mg-vitamin 1 cap PO DAILY 02/14/21 09/18/21 06/18/21 History D3 12.5 mcg (500 unit) capsule (Calcium 600 with Vitamin D3) lansoprazole 30 mg capsule,delayed 30 mg PO BID #180 cap 04/29/21 09/18/21 06/18/21 Rx release (Prevacid) pregabalin 150 mg capsule 150 mg PO BID 06/18/21 09/18/21 06/18/21 History sennosides 8.6 mg tablet (senna) See Rx Instructions .ROUTE .COMPLEX 06/18/21 09/18/21 06/18/21 History vit C 250 mg-vit E 90 mg-zinc 40 1 tab PO BID 06/18/21 09/18/21 06/18/21 History mg-copper 1 [id number] capsule (PreserVision AREDS-2) benzonatate 100 mg capsule 100 mg PO TID PRN 08/01/21 09/18/21 Unknown History ferrous gluconate 324 mg (38 mg 324 mg PO DAILY 08/01/21 09/18/21 Unknown History iron) tablet nystatin 100,000 unit/mL oral 100,000 unit PO BID 08/01/21 09/18/21 Unknown History suspension metoprolol succinate 100 mg 100 mg PO DAILY #90 tab 08/07/21 09/18/21 Unknown Rx tablet,extended release 24 hr warfarin 2 mg tablet 2 mg PO DAILY 08/07/21 09/18/21 Unknown History montelukast 10 mg tablet 10 mg PO DAILY #30 tab 08/20/21 09/18/21 Unknown Rx (Singulair) cetirizine 10 mg tablet 10 mg PO DAILY tab 09/18/21 09/18/21 Unknown History furosemide 20 mg tablet (Lasix) 40 mg PO DAILY PRN #90 tab 09/24/21 Unknown Rx potassium chloride 20 mEq 20 meq PO DAILY PRN #90 tab 09/30/21 Unknown Rx tablet,extended release Allergies Allergy/AdvReac Type Severity Reaction Status Date / Time atropine Allergy Unknown Unknown Verified 08/20/21 08:35 benztropine Allergy Unknown Unknown Verified 08/20/21 08:35 cefadroxil [From Duricef] Allergy Unknown Unknown Verified 08/20/21 08:35 cimetidine Allergy Unknown Unknown Verified 08/20/21 08:35 enalapril Allergy Unknown Unknown Verified 08/20/21 08:35 enalaprilat [From Vasotec] Allergy Unknown Unknown Verified 08/20/21 08:35 gabapentin Allergy Unknown Unknown Verified 08/20/21 08:35 Sulfa (Sulfonamide Allergy Unknown Unknown Verified 08/20/21 08:35 Antibiotics) zolpidem [From Ambien] Allergy Unknown Unknown Verified 08/20/21 08:35 tramadol Allergy ADR-Itching Verified 08/20/21 08:35 PFSH Acute PFSH: Medical History Atrial fibrillation CAD (coronary artery disease) Diastolic heart failure GERD (gastroesophageal reflux disease) HTN (hypertension) Osteoarthritis Pacemaker Varicose veins of left lower extremity with other complications Surgical History Previous back surgery S/P cardiac pacemaker procedure S/P cataract extraction S/P hysterectomy S/P tubal ligation Family History Father , [place] age 44 Myocardial infarction Social History Smoking and tobacco status: never smoked History of recent travel: No Vitals/I&O/Wt Last Vital Signs Temp 100.2 F H 10/01/21 14:02 Pulse 81 10/01/21 14:02 Resp 17 10/01/21 14:02 BP 137/69 10/01/21 14:02 Pulse Ox 94 10/01/21 14:02 Data : 10/01/21 14:22 10/01/21 14:22 Coding Level of Care Code 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
[2021-10-01 15:56] LABS: Bilirubin Urine Neg (Negative); Blood Urine Neg (Negative); Glucose Urine UA Norm (Normal); Ketones Urine Negative (Negative); Nitrate Urine Positive (Negative); Protein Urine Neg (Negative); Specific Gravity, Urine 1.005 (1.005-1.030); Urine Appearance Clear (CLEAR); Urine Color Yellow (Yellow); pH Urine 7 (5-7)
[2021-10-01 15:57] LABS: Add Urine Culture? Yes; Add Urine Microscopic? YES; Bacteria Urine 3+ /hpf; Leukocyte Esterase Urine Negative (Negative); RBC Urine 0-4 /hpf (0-2); Squamous Epithelial Cell Urine 0-4 /hpf (0-5); Urobilinogen Urine Norm (Negative); WBC Urine 0-4 /hpf (0-5)
--- NOTE | 2021-10-01 16:57 | PM.HP ---
Providers/Chief Complaint Primary Care Provider: Neeraj Cardoza MD Chief Complaint: GENERALIZED WEAKNESS/ TIRED/ TREMORS History of Present Illness Megan Das is a 81 year old female who presented today after sustaining a fall at home. As per the family she has been having some tremors for short-term time she has been started on Requip by her PCP, as per the family she has been taking Lasix for right-sided pleural effusion, is stating that whenever she wakes up in the morning she is very fidgety and cannot even handle her phone this morning she was trying to go towards her bathroom when her knees and legs gave up on him. She did not pass out no chest pain, shortness of breath, fever or recent diarrhea. She did not lose consciousness. She is attributing fall to her bad knees Diagnosis in the ER revealed paced rhythm Creatinine 1.4 which is ANI Normal CBC Potassium is 4.4, troponin trending down She is awake and alert She had right-sided facial droop as per the family this is not new She did not qualify for cerebellar signs, no signs of myoclonus, her tremors are at rest and with activity, no previous diagnosis of essential tremors Review of Systems Const: Denies: fever(s) Eyes: Denies: change in vision ENMT: Denies: throat pain Card: Denies: chest pain Resp: Reports: dyspnea GI: Denies: abdominal pain : Denies: flank pain Musc: Reports: joint stiffness Skin/Breast: Denies: rash Neuro: Reports: headache(s), difficulty walking, frequent falls and restless legs Psych: Denies: anxiety Endo: Denies: polyuria Rony/Lymph: Denies: easy bruising All/Imm: Denies: urticaria Medications/Allergies Home Medications Medication Instructions Recorded Confirmed Last Taken Type albuterol sulfate 90 mcg/actuation 2 puff INHALATION Q6H PRN 05/16/19 10/01/21 03/11/21 History aerosol inhaler (ProAir HFA) aspirin 81 mg tablet,delayed 81 mg PO BEDTIME 05/16/19 10/01/21 09/30/21 History release (Adult Low Dose Aspirin) eszopiclone 2 mg tablet (Lunesta) 2 mg PO BEDTIME 05/16/19 10/01/21 09/30/21 History hydrocodone 5 mg-acetaminophen 325 1 tab PO BID PRN 05/16/19 10/01/21 06/18/21 History mg tablet lubiprostone 24 mcg capsule 24 mcg PO BID 05/16/19 10/01/21 10/01/21 History (Amitiza) multivitamin 1 tab PO BEDTIME 05/16/19 10/01/21 09/30/21 History ropinirole 2 mg tablet 2 mg PO BEDTIME 10/11/20 10/01/21 09/30/21 History budesonide 160 mcg-glycopyr 9 2 inh INHALATION BID 02/13/21 10/01/21 10/01/21 History mcg-formot 4.8 mcg/actuation HFA inhaler (Breztri Aerosphere) calcium carbonate 600 mg-vitamin 1 cap PO DAILY 02/14/21 10/01/21 10/01/21 History D3 12.5 mcg (500 unit) capsule (Calcium 600 with Vitamin D3) lansoprazole 30 mg capsule,delayed 30 mg PO BID #180 cap 04/29/21 10/01/21 10/01/21 Rx release (Prevacid) pregabalin 150 mg capsule 150 mg PO BID 06/18/21 10/01/21 10/01/21 History sennosides 8.6 mg tablet (senna) See Rx Instructions .ROUTE .COMPLEX 06/18/21 10/01/21 10/01/21 History vit C 250 mg-vit E 90 mg-zinc 40 1 tab PO BID 06/18/21 10/01/21 10/01/21 History mg-copper 1 [id number] capsule (PreserVision AREDS-2) ferrous gluconate 324 mg (38 mg 324 mg PO DAILY 08/01/21 10/01/21 10/01/21 History iron) tablet nystatin 100,000 unit/mL oral 100,000 unit PO BID 08/01/21 10/01/21 10/01/21 History suspension metoprolol succinate 100 mg 100 mg PO DAILY #90 tab 08/07/21 10/01/21 10/01/21 Rx tablet,extended release 24 hr warfarin 2 mg tablet 2 mg PO DAILY 08/07/21 10/01/21 09/30/21 History montelukast 10 mg tablet 10 mg PO DAILY #30 tab 08/20/21 10/01/21 10/01/21 Rx (Singulair) cetirizine 10 mg tablet 10 mg PO DAILY tab 09/18/21 10/01/21 10/01/21 History furosemide 20 mg tablet (Lasix) 40 mg PO DAILY PRN #90 tab 09/24/21 10/01/21 10/01/21 Rx potassium chloride 20 mEq 20 meq PO DAILY PRN #90 tab 09/30/21 10/01/21 10/01/21 Rx tablet,extended release vitamin E 200 unit capsule 200 unit PO DAILY 10/01/21 10/01/21 10/01/21 History Allergies Allergy/AdvReac Type Severity Reaction Status Date / Time atropine Allergy Unknown Unknown Verified 08/20/21 08:35 benztropine Allergy Unknown Unknown Verified 08/20/21 08:35 cefadroxil [From Duricef] Allergy Unknown Unknown Verified 08/20/21 08:35 cimetidine Allergy Unknown Unknown Verified 08/20/21 08:35 enalapril Allergy Unknown Unknown Verified 08/20/21 08:35 enalaprilat [From Vasotec] Allergy Unknown Unknown Verified 08/20/21 08:35 gabapentin Allergy Unknown Unknown Verified 08/20/21 08:35 Sulfa (Sulfonamide Allergy Unknown Unknown Verified 08/20/21 08:35 Antibiotics) zolpidem [From Ambien] Allergy Unknown Unknown Verified 08/20/21 08:35 tramadol Allergy ADR-Itching Verified 08/20/21 08:35 PFSH Acute PFSH: Medical History Atrial fibrillation CAD (coronary artery disease) Diastolic heart failure GERD (gastroesophageal reflux disease) HTN (hypertension) Osteoarthritis Pacemaker Varicose veins of left lower extremity with other complications Surgical History Previous back surgery S/P cardiac pacemaker procedure S/P cataract extraction S/P hysterectomy S/P tubal ligation Family History Father , [place] age 44 Myocardial infarction Social History Smoking and tobacco status: never smoked History of recent travel: No Vitals/I&O/Wt Last Vital Signs Temp 100.2 F H 10/01/21 14:02 Pulse 81 10/01/21 14:02 Resp 17 10/01/21 14:02 BP 137/69 10/01/21 14:02 Pulse Ox 94 10/01/21 14:02 Physical Exam Narrative: Patient was laying semi-[place] position She has right-sided facial droop which as per the family is chronic No acute strokelike features No cerebellar stroke signs No signs of myoclonus She has resting tremors which get worse on movement Finger-nose test negative, negative dysdiadochokinesia Abdomen distended Satting well on room air Paced rhythm Very pleasant cooperative Feet without edema Data : 10/01/21 14:22 10/01/21 14:22 A&P Assessment and plan (1) Pleural effusion: Status: Acute (2) Acute kidney injury superimposed on CKD: Status: Acute (3) Dehydration: Status: Acute (4) Diastolic heart failure: Status: Acute (5) Iron deficiency anemia: Status: Acute (6) Pacemaker syndrome: Status: Acute (7) Pleural effusion: Status: Acute Plan Patient sustained a fall She has resting tremors which get worse on movement I do believe she has essential tremors No signs of cerebellar stroke No signs of myoclonus I will give her Inderal For her shortness of breath improved fusion will request thoracentesis in the morning Hold aspirin and DVT prophylaxis Patient is denying syncopal event, I will do carotid Doppler and echo Right knee osteoarthritis no signs of fracture Patient does not have UTI I would not continue antibiotics Pacemaker interrogation I will continue her Lasix and potassium supplements She has normal hemoglobin She does not want to go to any residential could I am holding her pregabalin History of A. 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
[2021-10-01 17:10] LABS: Troponin 5 2HR 25.93 ng/L (0-10)
[2021-10-01 17:27] LABS: Troponin 5 2HR Delta -0.07 ABS# (0-10)
[2021-10-01] MEDS: cefTRIAXone 1,000 MG in sodium chloride 0.9% (plus) 50 ML 100 MG IV (17:47)
[2021-10-01 18:47] LABS: ABG PCO2 39.4 mmHg (35-45); ABG PH Result 7.49 (7.35-7.45); Arterial Blood Gas Hematocrit 39.5 % (37-47); Blood Gas Allen Test Pos; Blood Gas Sample Type Arterial; HCO3 ABG 29.8 mmol/L (22-26); PO2 ABG 59.6 mmHg (80.0-100.0)
[2021-10-01 18:48] LABS: Blood Gas Operator Identificat MONRO; Blood Gas Sample Site Brachial, right; Oxygen Device ROOM AIR
--- NOTE | 2021-10-01 19:18 | ECG_ITS ---
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 Measurements Intervals [place] Rate: 80 P: [place]: QRS: -73 QRSD: 188 T: 98 QT: 437 QTc: 504 Interpretive Statements ELECTRONIC VENTRICULAR PACEMAKER ABNORMAL RHYTHM ECG Compared to ECG 10/01/2021 15:29:04 No significant changes Electronically Signed On 10-01-2021 23:23:45 CDT by Romain Cadena M.D. [id number]
--- NOTE | 2021-10-01 19:23 | USCV_ITS ---
Megan Das Age: 81 Gender: F : 1940 Exam Date: 10/01/2021 19:41 Ordering Phys: Chip Garrison MD Technologist: DEJAN [place] [facility] [place]: Patient denies syncope. She states that she fell, but did not lose consciousness. No DM. Non- smoker. Risk Factors: Patient denies syncope. She states that she fell, but did not lose consciousness. No DM. Non-smoker. Previous Vascular Surgery: None Right Brachial BP: / Left Brachial BP: / Right Left Velocity (cm/s) Spectral Plaque Velocity (cm/s) Spectral Plaque Syst/Diast Broadening Syst/Diast Broadening 48.60/ 8.50 None Homo Prox CCA 52.00 / 10.90 None Homo 44.30/ 8.00 None Homo Mid CCA 48.90 / 10.90 None Homo 42.20/ 11.70 None Homo Distal CCA 56.70 / 13.20 None Homo 46.50/ 11.20 None Homo Prox ICA 45.80 / 18.60 None Homo 73.80/ 23.30 None Homo Mid ICA 59.80 / 21.80 None Homo 68.40/ 16.30 None Homo Distal ICA 73.80 / 24.90 None Homo 82.30 None Homo ECA 80.80 None Homo 1.52 ICA/CCA 1.30 Antegrade Vertebral Antegrade 60.00/ 14.00 cm/s 41.00/ 7.00 cm/s Tri Subclavian Tri 53.00 72.00 FINDINGS Comparison: none available. No significant elevation of systolic or diastolic velocities. Waveforms are normal. Tortuous arteries with scattered plaque. Antegrade vertebral arteries. CONCLUSIONS Bilateral ICA stenosis less than 50%. Mild carotid atherosclerosis. Dr. Georgina Bauman DO (Electronically Signed) Final Date: 02 October 2021 08:13 S
--- NOTE | 2021-10-01 20:26 | PC.NURSE ---
patient refused echo/ultrasound. patient does not want a male production maintenance technician to be scanning around her breast, nurse explained that this might hinder or prolong diagnosis and care. patient continue to refuse and prefers to wait until female tech is available.
[2021-10-01] MEDS: propranolol 20 mg Tablet 10 MG PO (21:42)
[2021-10-01] MEDS: sennosides 8.6 mg Tablet PO (21:42)
[2021-10-01] MEDS: trazodone 50 mg Tablet 25 MG PO (22:29)
[2021-10-01] MEDS: ropinirole 2 mg Tablet PO (22:29)
[2021-10-02] VITALS (9 sets, daily range): BP systolic 93–117; BP diastolic 50–77; PULSE 72–96; RESP 16–21; TEMP 36.3–36.7; O2SAT 92–98
[2021-10-02 02:48] LABS: Basophils # 0.1 10^3/uL (0.0-0.1); Basophils % 0.7 %; Eosinophils # 0.1 10^3/uL (0.0-0.8); Hemoglobin 12.3 g/dL (11.5-15.3); Lymphocytes # 2.3 10^3/uL (0.8-4.8); Mean Corpuscular HGB Conc 30.8 g/dL (30.0-36.0); Mean Corpuscular Hemoglobin 32.1 pg (28.0-34.0); Mean Corpuscular Volume 104.4 fl (81-99); Mean Platelet Volume 11.1 fL (7.4-10.4); Monocytes # 0.9 10^3/uL (0.2-0.9); Monocytes % 9.3 %; Neutrophils # 6.54 10^3/uL (1.8-7.7); Neutrophils % 65.7 %; Nucleated Red Blood Cells % 0 %; Platelet Count 163 10^3/cmm (130-400); Red Blood Count 3.83 10^6/uL (4.1-5.3); Red Cell Distribution Width 15.6 % (12.1-15.1)
[2021-10-02] MEDS: levofloxacin-dextrose 5 % 750 MG/150 ML PREMIX 100 MG IV (02:48)
[2021-10-02 03:01] LABS: INR 1.57 (0.8-1.2)
[2021-10-02 03:09] LABS: Blood Urea Nitrogen 34 mg/dL (8-23); Calcium 9.4 mg/dL (8.5-10.5); Carbon Dioxide 29 mmol/L (22-29); Chloride 99 mmol/L (98-107); Glucose 130 mg/dL (65-115); Lipase 65 U/L (13-60); Osmolality Calculated 297 mOsm/kg (285-295); Sodium 139 mmol/L (136-145)
[2021-10-02 03:13] LABS: Anion Gap 15.6 (5-19); Potassium 4.6 mmol/L (3.5-5.1)
[2021-10-02 04:03] LABS: Lactate (Lactic Acid level) 1.3 mmol/L (0.5-2.2)
--- NOTE | 2021-10-02 07:29 | US_ITS ---
WS: [id number] RIGHT UPPER QUADRANT ULTRASOUND HISTORY: ruq pain COMPARISON: CT 10/01/2021 Liver: 19.0 cm in length. Moderately enlarged liver. Mild hepatic steatosis. No bile duct dilatation. Portal Vein: Normal hepatopetal flow with monophasic waveform. Gallbladder: Mild gallbladder hydrops transverse diameter is just under 4 cm. There is small amount o f stones and sludge present. Gallbladder wall is top normal size with no adjacent edema. CBD: 0.6 cm Pancreas: Not visualized. Right kidney: 8.9 cm in length. Low normal size kidney with an exophytic cyst from the upper pole shad suring 2.7 x 2.0 x 3.2 cm. Aorta and IVC: Mild atherosclerosis. No aneurysm. No ascites. US/US gall bladder [id number] IMPRESSION: 1. Mildly distended gallbladder with stones and a small amount of sludge. Mild acute cholecystitis should be considered. Mild hydrops could be related to pro longed fasting. 2. No bile duct dilatation. 3. Mild hepatic steatosis and moderate hepatomegaly.
[2021-10-02] MEDS: ferrous gluconate 324 mg Tablet PO (09:01)
[2021-10-02] MEDS: sennosides 8.6 mg Tablet PO ×2 (09:01→21:03)
[2021-10-02] MEDS: montelukast sodium 10 mg Tablet PO (09:01)
[2021-10-02] MEDS: sodium chloride 0.9% 250 ML IV (09:01)
[2021-10-02] MEDS: propranolol 20 mg Tablet 10 MG PO ×4 (10:24→23:24)
--- NOTE | 2021-10-02 10:25 | PM.PN ---
Subjective Subjective: Overnight events noted She did not have enough perfusion to be drained Mild acute cholecystitis is a concern I will keep her on Zosyn for today She is not complaining of any nausea, vomiting or right upper quadrant pain Nonsignificant carotid stenosis, echo report is pending, thoracentesis of pleural canceled Patient is stating that her tremors have improved with Inderal, it was held secondary to low blood pressure, blood pressure improved with a small bolus this morning Vitals/I&O/Wt Last Vital Signs Temp 97.4 F L 10/02/21 04:00 Pulse 96 10/02/21 10:15 Resp 17 10/02/21 08:57 BP 114/76 10/02/21 10:15 Pulse Ox 94 10/02/21 08:57 10/01/21 10/02/21 10/02/21 22:59 06:59 14:59 Intake Total 50 / 50 1510 / 1560 250 / 250 Balance 50 / 50 1510 / 1560 250 / 250 Weight last 48 hrs Weight 78.199 kg Weight 77.7 kg Physical Exam Narrative: Patient is stating that she has improved Looks euvolemic Abdomen soft no signs of repaired right upper quadrant pain no Pandya sign Abdomen is nontender She is awake and alert Able to lay flat No orthopnea PND No active tremors Nonfocal neuro exam Right-sided facial droop No active stridor or wheezing Saturating well on room air Data : 10/02/21 02:40 10/02/21 02:40 Micro: Microbiology 10/01/21 15:30 Urine Culture - Preliminary Urine,Clean Catch Gram Negative Rods 10/02/21 02:42 Blood Culture - Preliminary Blood SPECIMEN COLLECTED 10/02/21 02:40 Blood Culture - Preliminary Blood SPECIMEN COLLECTED A&P Assessment and plan (1) Essential tremor: Status: Acute (2) Left ankle swelling: Status: Acute (3) Pleural effusion: Status: Acute (4) Acute kidney injury superimposed on CKD: Status: Acute (5) Dehydration: Status: Acute (6) Diastolic heart failure: Status: Acute (7) Iron deficiency anemia: Status: Acute (8) Pacemaker syndrome: Status: Acute (9) Atrial fibrillation: Status: Acute (10) HTN (hypertension): Status: Acute Plan I do believe patient sustained a fall related to her tremors Inderal did not make a difference She is endorsing improvement in her tremors as well I do not believe she had any cardiac related syncopal event Troponin trending down EKG showing paced rhythm Low-grade fever, no white count, she is not septic Ultrasound of gallbladder did not show concerning changes for mild acute cholecystitis, I will start her on Zosyn, we will keep her on low-fat diet she does not have any tenderness to palpation in the right upper quadrant COVID-negative Chronic kidney disease creatinine seems to be around baseline Hypotension: Gentle fluid hydration today Diastolic congestive heart failure without acute exacerbation No right-sided pleural effusion detected, I will start her on DVT prophylaxis which will be sufficed with Coumadin which he takes at home for A. 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
--- NOTE | 2021-10-02 10:33 | XRR_ITS ---
PROCEDURE INFORMATION: Exam: XR Left Ankle Exam date and time: 10/02/2021 10:45 AM Age: 81 years old Clinical indication: Injury or trauma; Fall; Swelling or effusion of joint; Ankle; Sprain or strain; Left TECHNIQUE: Imaging protocol: Radiologic exam of the Left ankle. Views: 1 or 2 views. COMPARISON: CT Low Extremity w LEFT [id number] 09/19/2015 2:54 PM FINDINGS: Bones/joints: Negative for acute bony abnormality Soft tissues: Normal. XR/XR ankle LT 2V [id number] IMPRESSION: No acute findings.
[2021-10-02] MEDS: piperacillin-tazobactam 3.375 GM in sodium chloride 0.9% (plus) 50 ML IV ×2 (11:01→17:48)
[2021-10-02] MEDS: sodium chloride 0.9% 1,000 ML 30 ML IV (11:01)
[2021-10-02] MEDS: warfarin 2 mg Tablet PO (14:23)
--- NOTE | 2021-10-02 19:23 | USCV_ITS ---
Megan Das Age: 81 Gender: F : 1940 Exam Date: 10/02/2021 07:49 Ordering Phys: Chip Garrison MD Technologist: Jairo Ruiz [place] [facility]ication: hyoptension BP: 93 / 67 HR: 81 Rhythm: Atrial fibrillation Technical Quality: Adequate MEASUREMENTS (Male / Female) Normal Values 2D ECHO LV Diastolic Diameter PLAX 3.6 cm 4.2 - 5.9 / 3.9 - 5.3 cm LV Systolic Diameter PLAX 2.8 cm IVS Diastolic Thickness 1.1 cm 0.6 - 1.0 / 0.6 - 0.9 cm IVS Systolic Thickness 1.2 cm LVPW Diastolic Thickness 1.2 cm 0.6 - 1.0 / 0.6 - 0.9 cm LVPW Systolic Thickness 1.4 cm LVOT Diameter 2.0 cm LV Ejection Fraction 2D Teich 46.9 % LV Ejection Fraction MOD 2C 46.9 % LV Ejection Fraction 2C AL 46.7 % LA Diameter 4.0 cm LA Width 3.3 cm LA Height 4.9 cm RA Width 4.2 cm RA Height 5.0 cm Aorta at Sinotubular Diameter 2.3 cm IVC Diameter 1.8 cm M-MODE Aortic Annulus Diameter 2.4 cm LA Ao Ratio MM 1.7 MV E Point Septal Separation 0.3 cm DOPPLER AV Peak Velocity 108.0 cm/s LVOT Peak Velocity 87.0 cm/s AV Area Cont Eq vti 2.4 cm squared AV Area Cont Eq pk 2.6 cm squared MV Peak Velocity 90.0 cm/s MV Area PHT 5.0 cm squared MV E' Velocity 83.0 cm/s TR Peak Velocity 287.7 cm/s TR Peak Gradient 33.1 mmHg TR Mean Velocity 209.4 cm/s TR Mean Gradient 19.6 mmHg TR Velocity Time Integral 84.3 cm Right Atrial Pressure 3.0 mmHg Pulmonary Artery Systolic Pressu 36.1 mmHg RV Acceleration Time 0.1 s RV Ejection Time 0.3 s RV AcT/ET 0.4 FINDINGS Left Ventricle Technically limited quality echocardiogram because of poor ultrasonic windows. Normal left ventricular size. Grossly LV systolic function is mildly reduced. Regional wall motion abnormalities can not be accuartely assessed because of poor ultrasonic windows Right Ventricle The right ventricle is normal in size and function. Right Atrium The right atrium is grossly normal Left Atrium The left atrium is dilated Mitral Valve Mitral annular calcification without significant stenosis or prolapse. There is trace mitral regurgitation. Aortic Valve Grossly normal without significant stenosis. There is no aortic regurgitation. Tricuspid Valve Grossly normal without significant stenosis. Moderate tricuspid regurgitation. RVSP is 35-40mmHg. This is consistent with mild pulmonary hypertension Pulmonic Valve Not well visualized Pericardium Normal pericardium without effusion. Aorta Normal ascending aorta dimension. IVC CONCLUSIONS Technically limited quality echocardiogram because of poor ultrasonic windows. Grossly LV systolic function is mildly reduced. Left atrial enlargement. Mitral annular calcification is seen. Trace mitral regurgitation. Moderate tricuspid regurgitation. Mild pulmonary hypertension. Compared to prior echocardiogram in 2018, no significant changes seen. Romain Cadena MD (Electronically Signed) Final Date: 02 October 2021 12:05 S
--- NOTE | 2021-10-02 19:23 | US_ITS ---
WS: [id number] Ultrasound chest, RIGHT. HISTORY: Evaluate pleural fluid for thoracentesis. COMPARISON: 10/01/2021. There is no RIGHT pleural effusion identified. Mild atelectasis at the lung base. No pleural effusion of any significance was identified on the recent CT of 10/01/2021. US/US chest [id number] IMPRESSION: No RIGHT pleural effusion.
[2021-10-02] MEDS: ropinirole 2 mg Tablet PO (21:03)
[2021-10-02] MEDS: trazodone 50 mg Tablet 25 MG PO (23:20)
[2021-10-03] VITALS: BP 151/85; PULSE 79; RESP 20; TEMP 36.9; O2SAT 96
[2021-10-03] MEDS: piperacillin-tazobactam 3.375 GM in sodium chloride 0.9% (plus) 50 ML IV ×2 (03:02→11:04)
[2021-10-03 04:00] VITALS: BP 115/73; PULSE 81; RESP 19; TEMP 36.6; O2SAT 95
[2021-10-03 05:59] LABS: Basophils # 0.1 10^3/uL (0.0-0.1); Basophils % 0.6 %; Eosinophils # 0.1 10^3/uL (0.0-0.8); Eosinophils % 1.4 %; Hematocrit 34.5 % (37.0-47.0); Hemoglobin 11.3 g/dL (11.5-15.3); Lymphocytes # 1.6 10^3/uL (0.8-4.8); Lymphocytes % 20.8 %; Mean Corpuscular HGB Conc 32.8 g/dL (30.0-36.0); Mean Corpuscular Hemoglobin 32.1 pg (28.0-34.0); Mean Platelet Volume 11.3 fL (7.4-10.4); Monocytes # 0.6 10^3/uL (0.2-0.9); Monocytes % 8.1 %; Neutrophils # 5.36 10^3/uL (1.8-7.7); Neutrophils % 68.8 %; Nucleated Red Blood Cells % 0 %; Platelet Count 148 10^3/cmm (130-400); Red Blood Count 3.52 10^6/uL (4.1-5.3); Red Cell Distribution Width 14.6 % (12.1-15.1); White Blood Count 7.8 10^3/uL (4.0-10.0)
[2021-10-03 06:23] LABS: Anion Gap 14.1 (5-19); Blood Urea Nitrogen 30 mg/dL (8-23); Calcium 9.2 mg/dL (8.5-10.5); Carbon Dioxide 26 mmol/L (22-29); Chloride 100 mmol/L (98-107); Glucose 115 mg/dL (65-115); Osmolality Calculated 289 mOsm/kg (285-295); Potassium 4.1 mmol/L (3.5-5.1); Sodium 136 mmol/L (136-145)
[2021-10-03 06:41] LABS: INR 1.85 (0.8-1.2)
[2021-10-03 08:00] VITALS: BP 109/71; PULSE 79; RESP 15; TEMP 36.6; O2SAT 93
[2021-10-03] MEDS: montelukast sodium 10 mg Tablet PO (08:09)
[2021-10-03] MEDS: ferrous gluconate 324 mg Tablet PO (08:09)
[2021-10-03] MEDS: propranolol 20 mg Tablet 10 MG PO (08:09)
[2021-10-03] MEDS: sennosides 8.6 mg Tablet PO (08:09)
[2021-10-03 08:36] VITALS: PULSE 80; RESP 17; O2SAT 95
--- NOTE | 2021-10-03 11:56 | PM.DCS ---
Discharge Providers Date of Admission: 10/01/21 16:39 Date of Discharge: October 03, 2021 Attending Provider at Admission: Armida Antonio MD Attending Provider at Discharge: Chip Garrison MD Primary Care Provider: Neeraj Cardoza MD Diagnoses at Discharge Discharge Diagnosis (1) Essential tremor: Status: Acute (2) Left ankle swelling: Status: Acute (3) Pleural effusion: Status: Acute (4) Acute kidney injury superimposed on CKD: Status: Acute (5) Dehydration: Status: Acute (6) Diastolic heart failure: Status: Acute (7) Iron deficiency anemia: Status: Acute (8) Pacemaker syndrome: Status: Acute (9) Atrial fibrillation: Status: Acute (10) HTN (hypertension): Status: Acute Reason for Visit Reason for Visit: GENERALIZED WEAKNESS/ TIRED/ TREMORS Hospital Course Hospital Course This is HPI at the time of admission Megan Das is a 81 year old female who presented today after sustaining a fall at home.? As per the family she has been having some tremors for short-term time she has been started on Requip by her PCP, as per the family she has been taking Lasix for right-sided pleural effusion, is stating that whenever she wakes up in the morning she is very fidgety and cannot even handle her phone this morning she was trying to go towards her bathroom when her knees and legs gave up on him.? She did not pass out no chest pain, shortness of breath, fever or recent diarrhea.? She did not lose consciousness.? She is attributing fall to her bad knees Hospital course Patient is stating that she has seen mild improvement in her tremors with use of Inderal. I have made some adjustments for her antihypertensive regimen. She did not exhibit any signs of Parkinson's or cerebellar stroke. Vitamin B12 above 500. She did not require oxygen during her hospitalization, right-sided pleural effusion was detected on x-ray however ultrasound did not peanut picker any pleural fluid it was likely atelectasis on the chest x-ray. Gallbladder ultrasound did show gallstones however no acute cholecystitis. No acute fractures identified on right-sided knee x-ray, left ankle x-ray. CT head was unremarkable. Carotid Doppler studies also unremarkable. Echo was done which showed mild pulmonary hypertension, gross LV function is mildly reduced. Limited quality echocardiogram. However no signal changes from 2018. My differential for tremors would include essential tremors for which I will prescribe her Inderal. I would also give her a referral to see Dr. oSng. Patient is endorsing mild improvement. I did explain to them the side effect of withdrawal is sedation and she should be monitored and supervised when she is ambulating. Her family is always around her and is well aware of the side effect now. I have chosen a very low-dose of Inderal concerning her age and her other medications. I have reduced the dose of metoprolol succinate to 25 mg daily. Also her Lasix dose should not be administered on daily basis I asked her to do it on a as needed basis in case she gets short of breath and noticed weight gain more than 3 pounds in 24 hours Physical Exam Narrative: Nonfocal neuro exam No cerebellar stroke signs No signs of Parkinson's Tremors improved S1, S2 Abdomen soft No right upper quadrant tenderness Nonfocal neuro exam Saturating well on room air Pleasant and cooperative Swelling of ankles noted Discharge Data Studies Completed and Pending Completed Studies During Hospitalization Category Date Time Status CT abdomen pelvis wo con [id number] Urgent Cat Scan 10/01/21 15:[address] head wo con* [id number] Urgent Cat Scan 10/01/21 13:18 Completed XR ankle LT 2V [id number] Routine Exams 10/02/21 10:33 Completed XR chest 1V portable [id number] Urgent Exams 10/01/21 13:18 Completed XR hand RT min 3V* [id number] Urgent Exams 10/01/21 13:18 Completed XR knee RT 1-2V [id number] Urgent Exams 10/01/21 13:18 Completed CV carotid duplex BI* [id number] Urgent Ultrasound 10/01/21 19:23 Completed CV. echo complete* [id number] Routine Ultrasound 10/02/21 19:23 Com[place] chest [id number] Routine Ultrasound 10/02/21 19:23 Completed US gall bladder [id number] Routine Ultrasound 10/02/21 07:29 Completed Pending at discharge Category Date Time Status Blood Culture Stat Lab 10/02/21 02:42 Results Urine Culture Stat Lab 10/01/21 15:30 Results Radiology Impressions Chest X-Ray 10/01/21 13:18 IMPRESSION: Possible increasing right pleural effusion compared to the previous examination of 09/18/2021. Hand X-Ray 10/01/21 13:18 IMPRESSION: No acute bony or joint abnormality identified. Head CT 10/01/21 13:18 IMPRESSION: 1. No evidence of intracranial hemorrhage or mass effect. 2. Mild small vessel changes. Mild parenchymal volume loss. 3. No acute intracranial findings. 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 No acute abnormality identified. Abdomen/Pelvis CT 10/01/21 15:50 IMPRESSION: 1. Cholelithiasis and distended gallbladder 2. Study somewhat limited to patient respiratory motion. No definite acute finding however is identified. COMMENTS: Consistent with the [place] [employer]'s Incidental Findings Committee white paper (J Am Lucinda Radiol 2018): Any incidental renal lesion less than 1 cm or classified as too small to characterize, or any incidental cystic renal lesion characterized as simple-appearing, is likely benign. No follow-up imaging is recommended for these lesions per consensus recommendations based on imaging criteria. Gallbladder Ultrasound 10/02/21 07:29 IMPRESSION: 1. Mildly distended gallbladder with stones and a small amount of sludge. Mild acute cholecystitis should be considered. Mild hydrops could be related to prolonged fasting. 2. No bile duct dilatation. 3. Mild hepatic steatosis and moderate hepatomegaly. Ankle X-Ray 10/02/21 10:33 IMPRESSION: No acute findings. Chest Ultrasound 10/02/21 19:23 IMPRESSION: No RIGHT pleural effusion. Laboratory Results WBC 7.8 10^3/uL (4.0-10.0) 10/03/21 05:48 RBC 3.52 10^6/uL (4.1-5.3) L 10/03/21 05:48 Hgb 11.3 g/dL (11.5-15.3) L 10/03/21 05:48 Hct 34.5 % (37.0-47.0) L 10/03/21 05:48 MCV 98.0 fl (81-99) D 10/03/21 05:48 MCH 32.1 pg (28.0-34.0) 10/03/21 05:48 MCHC 32.8 g/dL (30.0-36.0) D 10/03/21 05:48 RDW 14.6 % (12.1-15.1) 10/03/21 05:48 Plt Count 148 10^3/cmm (130-400) 10/03/21 05:48 MPV 11.3 fL (7.4-10.4) H 10/03/21 05:48 Neut % (Auto) 68.8 % 10/03/21 05:48 Lymph % (Auto) 20.8 % 10/03/21 05:48 [place] % (Auto) 8.1 % 10/03/21 05:48 Eos % (Auto) 1.4 % 10/03/21 05:48 Baso % (Auto) 0.6 % 10/03/21 05:48 Neut # (Auto) 5.36 10^3/uL (1.8-7.7) 10/03/21 05:48 Lymph # (Auto) 1.6 10^3/uL (0.8-4.8) 10/03/21 05:48 [place] # (Auto) 0.6 10^3/uL (0.2-0.9) 10/03/21 05:48 Eos # (Auto) 0.1 10^3/uL (0.0-0.8) 10/03/21 05:48 Baso # (Auto) 0.1 10^3/uL (0.0-0.1) 10/03/21 05:48 Nucleated RBC % (auto) 0 % 10/03/21 05:48 Nucleated RBCs # 0.0 /100WBC 10/03/21 05:48 PT 21.70 SECONDS (12.1-14.9) H 10/03/21 05:48 INR 1.85 (0.8-1.2) H 10/03/21 05:48 APTT 34.5 SECONDS (23.9-36.7) 10/01/21 14:22 Specimen Type Arterial 10/01/21 18:34 Sample Site Brachial, right 10/01/21 18:34 ABG pH 7.49 (7.35-7.45) H 10/01/21 18:34 ABG pCO2 39.4 mmHg (35-45) 10/01/21 18:34 ABG pO2 59.6 mmHg (80.0-100.0) L 10/01/21 18:34 ABG HCO3 29.8 mmol/L (22-26) H 10/01/21 18:34 ABG Base Excess 6.0 mmol/L (-2.0-2.0) H 10/01/21 18:34 Ernesto Test Pos 10/01/21 18:34 Hematocrit 39.5 % (37-47) 10/01/21 18:34 O2 Delivery Device Room air 10/01/21 18:34 FiO2 21.0 % 10/01/21 18:34 Coal Chemist ID Roderick 10/01/21 18:34 Sodium 136 mmol/L (136-145) 10/03/21 05:48 Potassium 4.1 mmol/L (3.5-5.1) 10/03/21 05:48 Chloride 100 mmol/L (98-107) 10/03/21 05:48 Carbon Dioxide 26 mmol/L (22-29) 10/03/21 05:48 Anion Gap 14.1 (5-19) 10/03/21 05:48 BUN 30 mg/dL (8-23) H 10/03/21 05:48 Creatinine 1.0 mg/dL (0.5-0.9) H 10/03/21 05:48 GFR Calculation Not Reportable 10/03/21 05:48 Glucose 115 mg/dL (65-115) 10/03/21 05:48 Calculated Osmolality 289 mOsm/kg (285-295) 10/03/21 05:48 Lactate 1.3 mmol/L (0.5-2.2) 10/02/21 02:46 Calcium 9.2 mg/dL (8.5-10.5) 10/03/21 05:48 Magnesium 2.0 mg/dL (1.7-2.3) 10/02/21 02:40 Total Bilirubin 0.5 mg/dL (0.15-1.2) 10/01/21 14:22 AST 39 U/L (0-32) H 10/01/21 14:22 ALT 17 U/L (0-33) 10/01/21 14:22 Alkaline Phosphatase 177 IU/L (35-105) H 10/01/21 14:22 Troponin T Baseline 26 ng/L (0-10) H 10/01/21 14:22 Troponin T 120 Minute 25.93 ng/L (0-10) H 10/01/21 16:15 Delta Troponin T -0.07 ABS# (0-10) L 10/01/21 16:15 Troponin T Hi Sens 6Hr 28.30 ng/L (0-10) H 10/01/21 22:56 Troponin T Hi Sens 6Hr Delta 2.30 ng/L (0-12) 10/01/21 22:56 Total Protein 8.0 g/dL (6.6-8.7) 10/01/21 14:22 Albumin 4.1 g/dL (3.5-5.2) 10/01/21 14:22 Globulin 3.9 g/dL (1.3-4.6) 10/01/21 14:22 Lipase 65 U/L (13-60) H 10/02/21 02:40 TSH 3.13 uIU/mL (0.27-4.20) 10/01/21 14:22 Free T4 1.24 ng/dL (0.82-1.77) 10/01/21 14:22 Urine Color Yellow (Yellow) 10/01/21 15:30 Urine Appearance Clear (CLEAR) 10/01/21 15:30 Urine pH 7 (5-7) 10/01/21 15:30 Ur Specific [place] 1.005 (1.005-1.030) 10/01/21 15:30 Urine Protein Neg (Negative) 10/01/21 15:30 Urine Glucose (UA) Norm (Normal) 10/01/21 15:30 Urine Ketones Negative (Negative) 10/01/21 15:30 Urine Blood Neg (Negative) 10/01/21 15:30 Urine Nitrate Positive (Negative) H 10/01/21 15:30 Urine Bilirubin Neg (Negative) 10/01/21 15:30 Urine Urobilinogen Norm mg/dL (Negative) 10/01/21 15:30 Ur Leukocyte Esterase Negative (Negative) 10/01/21 15:30 Urine RBC 0-4 /hpf (0-2) H 10/01/21 15:30 Urine WBC 0-4 /hpf (0-5) H 10/01/21 15:30 Ur Squamous Epith Cells 0-4 /hpf (0-5) H 10/01/21 15:30 Amorphous Sediment Not Reportable 10/01/21 15:30 Urine Bacteria 3+ /hpf (NONE) H 10/01/21 15:30 Influenza Type A Ag Negative (Negative) 10/01/21 14:22 Influenza Type B Ag Negative (Negative) 10/01/21 14:22 SARS-CoV-2 Ag (Rapid) Negative (Negative) 10/01/21 14:22 Vitals Last Vital Signs Temp 97.8 F 10/03/21 08:00 Pulse 80 10/03/21 08:36 Resp 17 10/03/21 08:36 BP 109/71 10/03/21 08:00 Pulse Ox 95 10/03/21 08:36 Discharge Plan Discharge Patient Disposition: Home Condition: Stable Prescriptions: New propranolol 20 mg Tablet 10 mg PO BID Qty: 60 1RF Continued Amitiza 24 mcg capsule 24 mcg PO BID 0RF aspirin [Adult Low Dose Aspirin] 81 mg tablet,delayed release (DR/EC) 81 mg PO BEDTIME 0RF multivitamin Tablet 1 tab PO BEDTIME 0RF eszopiclone [Lunesta] 2 mg tablet 2 mg PO BEDTIME 0RF albuterol sulfate [ProAir HFA] 90 mcg/actuation HFA aerosol inhaler 2 puff INHALATION Q6H PRN (Reason: Shortness Of Breath) 0RF hydrocodone-acetaminophen 5-325 mg tablet 1 tab PO BID PRN (Reason: Pain) 0RF Breztri Aerosphere 160-9-4.8 mcg/actuation HFA aerosol inhaler 2 inh inhalation BID 0RF ropinirole 2 mg tablet 2 mg PO BEDTIME 0RF calcium carbonate-vitamin D3 [Calcium 600 with Vitamin D3] 600 mg(1,500mg) -500 unit capsule 1 cap PO DAILY 0RF montelukast [Singulair] 10 mg tablet 10 mg PO DAILY Qty: 30 3RF warfarin 2 mg tablet 2 mg PO DAILY 0RF Rx Instructions: 2mg MWF, 1mg all other days lansoprazole [Prevacid] 30 mg capsule,delayed release(DR/EC) 30 mg PO BID Qty: 180 3RF potassium chloride 20 mEq tablet extended release 20 meq PO DAILY PRN (Reason: Take with Furosemide) Qty: 90 3RF sennosides [senna] 8.6 mg Tablet See Rx Instructions .ROUTE .COMPLEX 0RF Rx Instructions: 17.2 mg orally in the morning / 8.6 mg orally in the evening pregabalin 150 mg capsule 150 mg PO BID 0RF PreserVision AREDS-2 250-90-40-1 mg Capsule 1 tab PO BID 0RF vitamin E 200 unit Capsule 200 unit PO DAILY 0RF nystatin 100,000 unit/mL Suspension 100,000 unit PO BID 0RF Rx Instructions: administer 1/2 of dose in each side of the mouth ferrous gluconate 324 mg (38 mg iron) Tablet 324 mg PO DAILY 0RF cetirizine 10 mg tablet 10 mg PO DAILY 0RF Changed metoprolol succinate 100 mg tablet extended release 24 hr 25 mg PO DAILY Qty: 90 0RF furosemide [Lasix] 20 mg tablet 40 mg PO EVERY OTHER DAY PRN (Reason: edema) Qty: 90 1RF Discharge Orders: Discharge Order (Routine); Ordered 10/03/21 Ordered By: Chip Garrison Referrals: Neeraj Cardoza MD [Primary Care Provider] - Yeimi Song MD [Physician] - 1 week Discharge Diet: Cardiac Discharge Activity: Increase activity as tolerated Patient Instructions: Opioid Safety Discharge Attestations Time Spent in Discharge Care*: less than 30 min Quality Metrics Clinical Quality Measures [ No reported AMI, CVA or VTE this stay] Coding Level of Care Code Acute Chg FW DC note Diagnoses Essential tremor G25.0 Left ankle swelling M25.472 Pleural effusion J90 Acute kidney injury superimposed on CKD N17.9; N18.9 Dehydration E86.0 Diastolic heart failure I50.30 Iron deficiency anemia D50.9 Pacemaker syndrome I97.190 Atrial fibrillation I48.91 HTN (hypertension) I10
[2021-10-03 12:00] VITALS: BP 124/73; PULSE 74; RESP 15; TEMP 36.8; O2SAT 96
--- NOTE | 2021-10-03 12:02 | XR_ITS ---
WS: [email or web address] XR foot RT 2V [id number] REASON FOR EXAM: fall bruise FINDINGS: No acute fracture. Mild to moderate changes of osteoarthritis in the PIP and DIP joints of the toes. Similar arthropathy in the first metatarsal sesamoid articulation. Similar arthropathic change in the metatarsal-phalangeal joint of the great toe. Joint spaces in the mid and hindfoot are relatively well-preserved. The foot is unchanged compared to 04/02/2021. XR/XR foot RT 2V [id number] IMPRESSION: No acute abnormality. Stable chronic changes.
== END 2021-10-03 15:37 | disposition home health service (06) ==
LOC: ER 15:12 → MEDSURG 18:08
PROVIDERS: Internal Medicine; Admitting Provider Internal Medicine; Emergency Provider Emergency Medicine; PCP Family Medicine; Visit Provider Internal Medicine
DX: J90 Pleural effusion, not elsewhere classified (principal); G25.0 Essential tremor; M25.472 Effusion, left ankle; N17.9 Acute kidney failure, unspecified; E11.22 Type 2 diabetes mellitus with diabetic chronic kidney disease; I13.0 Hypertensive heart and chronic kidney disease with heart failure and stage 1 through stage 4 chronic kidney disease, or unspecified chronic kidney disease; N18.9 Chronic kidney disease, unspecified; I50.30 Unspecified diastolic (congestive) heart failure; E86.0 Dehydration; D50.9 Iron deficiency anemia, unspecified; I97.190 Other postprocedural cardiac functional disturbances following cardiac surgery; I48.91 Unspecified atrial fibrillation; Z91.81 History of falling; K81.0 Acute cholecystitis; Z66 Do not resuscitate; Z79.82 Long term (current) use of aspirin; M19.90 Unspecified osteoarthritis, unspecified site; Z95.0 Presence of cardiac pacemaker; I65.23 Occlusion and stenosis of bilateral carotid arteries
CPT/HCPCS: 36415; 36600; 70450; 71045; 73130; 73560; 73600; 73620; 74176; 76604; 76705; 80048; 80053; 81001; 82803; 83605; 83690; 83735; 84439; 84443; 84484; 85025; 85610; 85730; 87040; 87077; 87086; 87186; 87426; 87804; 93005; 93306; 93880; 99285; G0378; J0696; J1956; J2543; J7030; J7050

== ENCOUNTER → 2021-10-07 08:32 | Outpatient (BNVA) | payer MEDICARE, MEDICAID, SELFPAY | PROVIDERS: PCP Family Medicine; Visit Provider Nurse Practitioner Family | DX: I11.0 Hypertensive heart disease with heart failure (principal); I50.30 Unspecified diastolic (congestive) heart failure | CPT/HCPCS: 99213 ==

== ENCOUNTER → 2021-10-17 09:07 | Outpatient (BNVA) | payer MEDICARE, MEDICAID, SELFPAY | PROVIDERS: PCP Family Medicine; Visit Provider Internal Medicine Pulmonary Disease | DX: J45.909 Unspecified asthma, uncomplicated (principal); R05.9 Cough, unspecified; I50.30 Unspecified diastolic (congestive) heart failure; Z95.0 Presence of cardiac pacemaker | CPT/HCPCS: 93279; 99214 ==

== ENCOUNTER → 2021-10-17 09:07 | Outpatient (BNVA) | payer MEDICARE, MEDICAID, SELFPAY | PROVIDERS: PCP Family Medicine; Visit Provider Internal Medicine Cardiovascular Disease | DX: Z53.9 Procedure and treatment not carried out, unspecified reason (principal) | CPT/HCPCS: 93279 ==

== ENCOUNTER 2021-10-20 09:32 | Outpatient (CLI) | payer MEDICARE, MEDICAID, SELFPAY ==
--- NOTE | 2021-10-20 09:30 | CT_ITS ---
WS: [id number] CT CHEST WITHOUT INTRAVENOUS CONTRAST HISTORY: SOB TECHNIQUE: Contiguous 5 mm axial imaging performed on the thorax. Coronal and sagittal reformats are submitted. All CT scans at [facility] use at least one of these dose optimization techniques: automated exposure control; mA and/or kV adjustment per patient size (includes targeted exams where dose is matched to clinical indication); or iterative reconstruction. CONTRAST: None DLP: 651.38 mGy.cm COMPARISON: 08/01/2021 Study is compromised by breathing motion artifact. Lungs and central airway: Moderate elevation RIGHT hemidiaphragm similar to the prior examination. Pa tchy opacifications throughout both lungs. Approximately 50% atelectasis of the RIGHT lower lobe. Sli ghtly better aeration of the RIGHT lower lobe bronchial tree. Pleura: No significant residual RIGHT pleural effusion. Heart and pericardium: Marked cardiomegaly. Single lead RIGHT pacer wire. Mediastinum and maulik: Small mediastinal and hilar lymph nodes. Vessels: Mild atherosclerosis aorta. Mildly prominent pulmonary artery. Chest wall and lower neck: LEFT subclavian single lead pacer wire. Upper abdomen: Small hiatal hernia. 2.3 cm RIGHT renal cyst. No adrenal mass. Osseous structures: Increase in thoracic kyphosis. Mild diffuse osteopenia. 20% anterior compression of T3. CT/CT chest wo con [id number] IMPRESSION: 1. Resolved RIGHT pleural effusion. 2. Diffuse bilateral scattered ill-defined opacifications most consistent with pneumonitis. 3. Scattered pulmonary opacifications are new since the prior study of 08/02/19 22. 4. Moderate elevation RIGHT hemidiaphragm with partial atelectasis RIGHT lower lobe. 5. Marked cardiomegaly. 6. RIGHT renal cyst.
== END 2021-10-20 09:33 | disposition home or self-care (01) ==
PROVIDERS: PCP Family Medicine; Visit Provider Internal Medicine Pulmonary Disease
DX: R25.1 Tremor, unspecified (principal); Z91.81 History of falling; R05.9 Cough, unspecified; R06.02 Shortness of breath
CPT/HCPCS: 71250; 99204

== ENCOUNTER 2021-10-28 11:36 | Outpatient (CLI) | payer MEDICARE, MEDICAID, SELFPAY ==
[2021-10-29 09:06] LABS: PROTEIN, TOTAL 7.5 g/dL (6.1-8.1)
[2021-10-29 16:18] LABS: ALBUMIN 3.5 g/dL (3.8-4.8); ALPHA 1 GLOBULIN 0.4 g/dL (0.2-0.3); ALPHA 2 GLOBULIN 0.8 g/dL (0.5-0.9); BETA 1 GLOBULIN 0.5 g/dL (0.4-0.6); BETA 2 GLOBULIN 0.5 g/dL (0.2-0.5); GAMMA GLOBULIN 1.8 g/dL (0.8-1.7)
== END 2021-10-28 11:37 | disposition home or self-care (01) ==
PROVIDERS: PCP Family Medicine; Visit Provider Nurse Practitioner
DX: G25.0 Essential tremor (principal); I25.10 Atherosclerotic heart disease of native coronary artery without angina pectoris; I48.91 Unspecified atrial fibrillation; I50.30 Unspecified diastolic (congestive) heart failure
CPT/HCPCS: 84155; 84165

== ENCOUNTER 2021-11-05 10:40 | Outpatient (CLI) | payer MEDICARE, MEDICAID, SELFPAY ==
--- NOTE | 2021-11-05 10:45 | FL_ITS ---
WS: [email or web address] Modified barium swallow, 11/05/2021 Clinical Data: Other dysphagia Comparison: None. Fluoroscopy time: 2min [id number] # of spot films: 1 Findings: The patient showed slightly weak oral function and hypopharyngeal function. There was no penetration or aspiration. There is esophageal dysmotility in the upper one third of the esophagus. FL/FL barium swallow modifd 97491 Impression: 1. Weak oral and hypopharynx pharyngeal function. 2. No penetration or aspiration. 3. Poor esophageal motility in the upper one third.
== END 2021-11-05 10:41 | disposition home or self-care (01) ==
LOC: RAD 10:40
PROVIDERS: PCP Family Medicine; Visit Provider Family Medicine
DX: J69.0 Pneumonitis due to inhalation of food and vomit (principal); R13.19 Other dysphagia; I48.91 Unspecified atrial fibrillation; Z79.01 Long term (current) use of anticoagulants; Z95.0 Presence of cardiac pacemaker; I25.10 Atherosclerotic heart disease of native coronary artery without angina pectoris; I10 Essential (primary) hypertension
CPT/HCPCS: 74230; 92611; 99213; 99214

== ENCOUNTER 2021-11-12 06:39 | Outpatient (CLI) | payer MEDICARE, MEDICAID, SELFPAY ==
--- NOTE | 2021-11-12 07:56 | PFTS_ITS ---
Date of Study:11/12/21 Date of Dictation: MECHANICS: Forced vital capacity (FVC) is reduced. Forced expiratory volume in one second (FEV1) is reduced. FEV1/FVC is normal. FLOW VOLUME LOOP: Narrow. LUNG VOLUMES: Total lung capacity (TLC) is increased. Residual volume (RV) is increased. DIFFUSING CAPACITY FOR CARBON MONOXIDE: Normal. INTERPRETATION: The postbronchodilator spirometry is consistent with severe restriction. There is no significant postbronchodilator response. Lung volumes are consistent with hyperinflation and air trapping. Gas exchange (DLCO) is normal. The constellation of pulmonary function test is consistent with nonspecific ventilatory limitations. Consider the possibility of neuromuscular weakness. The patient may benefit from measurement of maximal inspiratory capacity, maximal expiratory capacity and maximum voluntary ventilation. MTDD
== END 2021-11-12 06:40 | disposition home or self-care (01) ==
LOC: RT 06:40
PROVIDERS: PCP Family Medicine; Visit Provider Internal Medicine Pulmonary Disease
DX: R06.02 Shortness of breath (principal); J45.909 Unspecified asthma, uncomplicated
CPT/HCPCS: 94060; 94726; 94729; J7611

== ENCOUNTER → 2021-11-14 09:23 | Outpatient (BNVA) | payer MEDICARE, MEDICAID, SELFPAY | PROVIDERS: PCP Family Medicine; Visit Provider Internal Medicine Pulmonary Disease | DX: R06.02 Shortness of breath (principal); R05.9 Cough, unspecified; J45.909 Unspecified asthma, uncomplicated; I50.30 Unspecified diastolic (congestive) heart failure; J98.6 Disorders of diaphragm; T17.908A Unspecified foreign body in respiratory tract, part unspecified causing other injury, initial encounter; R13.10 Dysphagia, unspecified; J98.4 Other disorders of lung | CPT/HCPCS: 99214 ==

== ENCOUNTER 2021-11-26 12:45 | Outpatient (CLI) | payer MEDICARE, MEDICAID, SELFPAY ==
--- NOTE | 2021-11-26 13:10 | XRR_ITS ---
PROCEDURE INFORMATION: Exam: XR Chest Exam date and time: 11/26/2021 1:14 PM Age: 81 years old Clinical indication: Condition or disease; Lung condition and disease; Other: Atelectasis; Prior surgery; Surgery type: Pacemaker; Patient HX: Foreing body in resp tract, ateclasis; Additional info: F/u atelectasis TECHNIQUE: Imaging protocol: Radiologic exam of the chest. Views: 2 views. COMPARISON: CT chest con [id number] 10/20/2021 9:40 AM FINDINGS: Tubes, catheters and devices: Metallic cardiac device left anterior chest Lungs: Unremarkable. No consolidation. Pleural spaces: Elevated right hemidiaphragm is seen No pleural effusion. No pneumothorax. Heart/Mediastinum: Unremarkable. No cardiomegaly. Bones/joints: Unremarkable. XR/XR chest 2V* [id number] IMPRESSION: 1. No acute findings. 2. Elevated right hemidiaphragm 3. Cardiac device left anterior chest in good position
== END 2021-11-26 12:46 | disposition home or self-care (01) ==
PROVIDERS: PCP Family Medicine; Visit Provider Internal Medicine Pulmonary Disease
DX: T17.908A Unspecified foreign body in respiratory tract, part unspecified causing other injury, initial encounter (principal); Z95.0 Presence of cardiac pacemaker
CPT/HCPCS: 71046

== ENCOUNTER → 2021-12-25 08:13 | Outpatient (BNVA) | payer MEDICARE, MEDICAID, SELFPAY | PROVIDERS: PCP Family Medicine; Visit Provider Podiatrist Foot & Ankle Surgery | DX: L60.0 Ingrowing nail (principal); I73.9 Peripheral vascular disease, unspecified | CPT/HCPCS: 99214 ==

== ENCOUNTER → 2022-01-19 13:16 | Outpatient (BNVA) | payer MEDICARE, MEDICAID, SELFPAY | PROVIDERS: PCP Family Medicine; Visit Provider Internal Medicine Pulmonary Disease | DX: J98.4 Other disorders of lung (principal); J98.6 Disorders of diaphragm; R06.02 Shortness of breath; R05.9 Cough, unspecified; J45.909 Unspecified asthma, uncomplicated; I50.30 Unspecified diastolic (congestive) heart failure | CPT/HCPCS: 71046; 99214 ==

== ENCOUNTER → 2022-02-25 13:03 | Outpatient (BNVA) | payer MEDICARE, MEDICAID, SELFPAY | PROVIDERS: PCP Family Medicine; Visit Provider Nurse Practitioner | DX: G25.3 Myoclonus (principal) | CPT/HCPCS: 99213 ==

== ENCOUNTER → 2022-03-04 08:17 | Outpatient (BNVA) | payer MEDICARE, MEDICAID, SELFPAY | PROVIDERS: PCP Family Medicine; Visit Provider Podiatrist Foot & Ankle Surgery | DX: I73.9 Peripheral vascular disease, unspecified (principal); L60.3 Nail dystrophy | CPT/HCPCS: 99214 ==

== ENCOUNTER 2022-03-20 10:24 | Outpatient (CLI) | payer MEDICARE, MEDICAID, SELFPAY ==
--- NOTE | 2022-03-20 10:30 | XR_ITS ---
WS: [email or web address] Chest 2 views, 03/20/2022 Clinical Data: new cough with possible aspiration of food/liquid Comparison: Two-view chest, 01/19/2022 Findings: There is a patchy opacity in the right lower lung which may represent effusion, atelectasis and possibly pneumonia. No nodules, masses or effusions are seen. The heart is enlarged. The pulmona ry vascularity is not increased. No pneumothorax is seen. The aortic arch and descending thoracic aor ta show calcification and tortuosity. The single-lead pacemaker remains in the same position. XR/XR chest 2V* [id number] Impression: 1. No change in patchy right lower lung opacity. 2. Atherosclerosis and cardiomegaly.
== END 2022-03-20 10:25 | disposition home or self-care (01) ==
LOC: RAD 10:26
PROVIDERS: PCP Family Medicine; Visit Provider Internal Medicine Pulmonary Disease
DX: R05.9 Cough, unspecified; I51.7 Cardiomegaly; I70.90 Unspecified atherosclerosis
CPT/HCPCS: 71046

== ENCOUNTER → 2022-03-26 11:20 | Outpatient (BNVA) | payer MEDICARE, MEDICAID, SELFPAY | PROVIDERS: PCP Family Medicine; Visit Provider Internal Medicine Pulmonary Disease | DX: R06.02 Shortness of breath (principal); J98.6 Disorders of diaphragm; J22 Unspecified acute lower respiratory infection; I25.10 Atherosclerotic heart disease of native coronary artery without angina pectoris; R05.9 Cough, unspecified; J45.909 Unspecified asthma, uncomplicated; I50.30 Unspecified diastolic (congestive) heart failure; T17.908D Unspecified foreign body in respiratory tract, part unspecified causing other injury, subsequent encounter; R13.10 Dysphagia, unspecified; J98.4 Other disorders of lung; X58.XXXA Exposure to other specified factors, initial encounter | CPT/HCPCS: 80053; 83735; 83880; 85025; 85610; 99214 ==

== ENCOUNTER 2022-04-23 07:48 | Outpatient (CLI) | payer MEDICARE, MEDICAID, SELFPAY ==
--- NOTE | 2022-04-23 08:00 | FL_ITS ---
WS: [email or web address] FL barium swallow [id number] REASON FOR EXAM: Difficulty swallowing. FLUOROSCOPY TIME: 3min [id number] # OF SPOT FILMS: Multiple FINDINGS: Examination is limited due to the significant physical and mental disabilities the patient. The cervical esophagus was evaluated in the upright position. Patient has a near horizontal orientati on of the cervical spine and esophagus. No aspiration was identified. Motility of the cervical esophagus was normal. No diverticulum identifi ed. The patient was then evaluated in the RUEDA position. The esophagus from the thoracic inlet to the gastroesophageal junction demonstrates significant dysmo tility with loss of primary peristaltic wave and tertiary contractions. There is prolonged retention of barium within the esophagus with episodes of retrograde reflux of the esophageal contents. The gastroesophageal junction is patent. No gastroesophageal reflux was identified. FL/FL barium swallow [id number] IMPRESSION: Somewhat limited examination. Significant dysmotility of the thoracic esophagus as above.
== END 2022-04-23 07:49 | disposition home or self-care (01) ==
LOC: RAD 07:48
PROVIDERS: PCP Family Medicine; Visit Provider Internal Medicine Pulmonary Disease
DX: R13.10 Dysphagia, unspecified (principal)
CPT/HCPCS: 74220

== ENCOUNTER → 2022-05-07 15:15 | Outpatient (BNVA) | payer MEDICARE, MEDICAID, SELFPAY | PROVIDERS: PCP Family Medicine; Visit Provider Internal Medicine | DX: I48.91 Unspecified atrial fibrillation (principal); Z79.01 Long term (current) use of anticoagulants; Z79.82 Long term (current) use of aspirin; Z95.0 Presence of cardiac pacemaker; I25.10 Atherosclerotic heart disease of native coronary artery without angina pectoris; I11.0 Hypertensive heart disease with heart failure; I50.30 Unspecified diastolic (congestive) heart failure | CPT/HCPCS: 99214 ==

== ENCOUNTER 2022-06-07 18:59 | Emergency (ER) | payer MEDICARE, MEDICAID, SELFPAY ==
[2022-06-07] VITALS (19 sets, daily range): BP systolic 76–120; BP diastolic 42–68; PULSE 77–100; RESP 15–22; TEMP 35.8–36.3; O2SAT 96–100; BMI 36.3
--- NOTE | 2022-06-07 19:10 | ECG_ITS ---
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 Measurements Intervals [place] Rate: 92 P: 0 ID: 0 QRS: -66 QRSD: 161 T: 123 QT: 407 QTc: 505 Interpretive Statements ELECTRONIC VENTRICULAR PACEMAKER Compared to ECG 10/01/2021 20:27:00 No significant changes Electronically Signed On 06-08-2022 11:31:10 CDT by Romain Cadena M.D. [email or web address] Groupmerit health biloxiAlavita Pharmaceuticals, Incuniversity hospitals [facility].[id number]
--- NOTE | 2022-06-07 19:20 | XRR_ITS ---
PROCEDURE INFORMATION: Exam: XR Chest Exam date and time: 06/07/2022 7:28 PM Age: 82 years old Clinical indication: Shortness of breath; Prior surgery; Surgery date: 6+ months; Surgery type: Pacemaker; Additional info: SOB TECHNIQUE: Imaging protocol: Radiologic exam of the chest. Views: 1 view. COMPARISON: CR XR chest 2V* [id number] 03/20/2022 10:31 AM FINDINGS: Tubes, catheters and devices: Left chest wall single chamber cardiac device remains in place. Lungs: Upper lungs are clear. Increasing right basilar opacity suggesting worsening of atelectasis/pneumonia and right pleural effusion. Postobstructive or aspiration process should be excluded. Continued follow-up should be obtained. CT correlation may also be considered to exclude central obstructive lesion. Left lung is grossly clear. Pleural spaces: See Lungs finding. Heart/Mediastinum: Cardiac silhouette appears enlarged and stable. No obvious vascular congestion. Bones/joints: No acute osseous findings. Other findings: Single view was submitted. XR/XR chest 1V portable [id number] IMPRESSION: Slight worsening of right basilar opacity as described above.
[2022-06-07 19:24] LABS: Basophils # 0.1 10^3/uL (0.0-0.1); Basophils % 1.5 %; Eosinophils # 0.1 10^3/uL (0.0-0.8); Eosinophils % 1.4 %; Hematocrit 23.7 % (37.0-47.0); Hemoglobin 6.9 g/dL (11.5-15.3); Lymphocytes # 1.6 10^3/uL (0.8-4.8); Lymphocytes % 26.5 %; Mean Corpuscular HGB Conc 29.1 g/dL (30.0-36.0); Mean Corpuscular Hemoglobin 32.2 pg (28.0-34.0); Mean Corpuscular Volume 110.7 fl (81-99); Mean Platelet Volume 12.8 fL (7.4-10.4); Monocytes # 0.5 10^3/uL (0.2-0.9); Monocytes % 8.8 %; Neutrophils # 3.64 10^3/uL (1.8-7.7); Neutrophils % 61.5 %; Nucleated Red Blood Cells # 0.1 /100WBC; Nucleated Red Blood Cells % 0.8 %; Platelet Count 171 10^3/cmm (130-400); Red Blood Count 2.14 10^6/uL (4.1-5.3); White Blood Count 5.9 10^3/uL (4.0-10.0)
[2022-06-07 19:45] LABS: Troponin(5th) Baseline 23 ng/L (0-10)
[2022-06-07] MEDS: nitroglycerin drip 50 MG/250 ML PREMIX 15 MG IV (19:50)
[2022-06-07 19:51] LABS: Lactate (Lactic Acid level) 1.3 mmol/L (0.5-2.2)
[2022-06-07] MEDS: DOBUTamine drip 500 MG/250 ML PREMIX 25.31 MG IV (19:52)
[2022-06-07] MEDS: DOBUTamine drip 500 MG/250 ML PREMIX 12.66 MG IV (19:56)
[2022-06-07 20:12] LABS: Add Urine Microscopic? NO; Charge for UA Resulting for Rev
[2022-06-07 20:14] LABS: Influenza A by IFA negative (Negative); Influenza B by IFA negative (Negative); SARS Covid-2 Antigen negative (Negative)
[2022-06-07 20:24] LABS: Bilirubin Urine Neg (Negative); Blood Urine Neg (Negative); Glucose Urine UA Norm (Normal); Ketones Urine Negative (Negative); Leukocyte Esterase Urine Negative (Negative); Nitrate Urine Negative (Negative); Protein Urine Neg (Negative); Urine Appearance Clear (CLEAR); Urine Color Yellow (Yellow); Urobilinogen Urine Neg (Negative); pH Urine 5 (5-7)
[2022-06-07 20:28] LABS: Alanine Aminotransferase 12 U/L (0-33); Albumin Level 3.2 g/dL (3.5-5.2); Alkaline Phosphatase 128 U/L (35-105); Aspartate Amino Transferase 22 U/L (0-32); Blood Urea Nitrogen 49 mg/dL (8-23); Calcium 8.5 mg/dL (8.5-10.5); Carbon Dioxide 27 mmol/L (22-29); Globulin 3.3 g/dL (1.3-4.6); Glucose 99 mg/dL (65-115); Magnesium 2.7 mg/dL (1.7-2.3); NT Pro B Type Natriuretic Pept 691 pg/mL (0-450); Total Bilirubin 0.4 mg/dL (0.15-1.2); Total Protein 6.5 g/dL (6.6-8.7)
[2022-06-07 20:46] LABS: Anion Gap 16.1 (5-19); Chloride 103 mmol/L (98-107); Potassium 6.1 mmol/L (3.5-5.1); Sodium 140 mmol/L (136-145)
[2022-06-07 20:49] LABS: INR 4.75 (0.8-1.2)
[2022-06-07 20:50] LABS: Osmolality Calculated 303 mOsm/kg (285-295)
[2022-06-07 20:57] LABS: Partial Thromboplastin Time 73.8 SECONDS (23.9-36.7)
--- NOTE | 2022-06-07 21:00 | W.ED.SOB ---
HPI - SOB/Dyspnea General: Chief Complaint: Shortness of Breath/Dyspnea Stated Complaint: SOB Time Seen by Provider: 06/07/22 19:09 History of Present Illness: HPI Narrative: 82-year-old female presenting by EMS for increased dyspnea over the last 2 days. She has also been weak over the last 4 days from baseline. Having 1 episode of nonbloody nonbilious emesis and looser than baseline stools. Difficulty breathing has been progressive and reminiscent of times of prior episodes of increased volume overload for which patient was placed on furosemide. Patient has heart failure with indeterminate ejection fraction given previous 10/02 echocardiogram. She states in between gasping breaths that her shortness of breath is severe and prevents her from doing anything and she is having excruciating chest pain with the difficulty of keeping area in her lungs. Brought in by EMS on CPAP with 40 mg Lasix provided. No associated fevers, sweats, chills, cough. 10/02 echo: ?CONCLUSIONS ?Technically limited quality echocardiogram because of poor ?ultrasonic windows. ?Grossly LV systolic function is mildly reduced. ?Left atrial enlargement. ?Mitral annular calcification is seen.? Trace mitral ?regurgitation. ?Moderate tricuspid regurgitation.? Mild pulmonary hypertension. ?Compared to prior echocardiogram in 2018, no significant changes ?seen. [facility] PFSH: Medical History Acute kidney injury superimposed on CKD Atrial fibrillation CAD (coronary artery disease) Dehydration Diastolic heart failure GERD (gastroesophageal reflux disease) HTN (hypertension) Iron deficiency anemia Left ankle swelling Myoclonus Osteoarthritis Pacemaker Pacemaker syndrome Pleural effusion Varicose veins of left lower extremity with other complications Surgical History Previous back surgery S/P cardiac pacemaker procedure S/P cataract extraction S/P hysterectomy S/P tubal ligation Family History Father , [place] age 44 Myocardial infarction Social History Smoking and tobacco status: never smoked Physical Exam Narrative: EXAM NARRATIVE: Focused examination with pitting edema bilaterally, rales in both lung francisco with diminished breath sounds in the right lower base, tachypneic, arching back, posturing, conversationally dyspneic. Const: COMMON NORMALS: apparent distress GENERAL APPEARANCE: Edematous HENMT: COMMON NORMALS: normocephalic and atraumatic HEAD & SCALP: normocephalic and atraumatic THROAT: posterior oropharynx normal Eye: COMMON NORMALS: Equal, round and reactive pupils present, EOMs intact bilaterally and conjunctivae normal CONJUNCTIVA: Yes conjunctivae normal PUPIL: Yes Equal, round and reactive pupils present Neck/C-Spine: COMMON NORMALS: full ROM, no lymphadenopathy and no JVD Lymph: LYMPHATIC: no lymphadenopathy noted and no lymphedema noted Chest: COMMONS NORMALS: normal inspection of the chest and normal palpation of entire chest wall Resp: COMMON NORMALS: normal respiratory effort and No retractions Cardio: COMMON NORMALS: no JVD GI: COMMON NORMALS: Normal to inspection, nondistended, normoactive bowel sounds present INSPECTION: Yes normal to inspection and No abdominal wall ecchymosis : COMMON NORMALS: Yes no CVA tenderness BLADDER/KIDNEY EXAM: Yes no CVA tenderness Back/Pelvis: COMMON NORMALS: no CVA tenderness Extremity: COMMON NORMALS: normal to inspection and full ROM Procedures Central Line Placement Left Femoral: Time Out Performed: Yes Patient Placed on Monitor/Pulse Ox: Yes MD Prep: mask, gown and gloves Central Line Prep: Chlorhexidine scrub Local Anesthetic: lidocaine 1% Ultrasound Used for Placement: Yes Central Line Lumen Inserted: triple Post Procedure: sutured in place, good blood return, all ports aspirated, flushed, capped and sterile dressing applied Post Procedure X-Ray: tip of catheter in good position Patient Tolerated Procedure: well and no complications Complications: none, lost guide wire and hemothorax Course Vital Signs: Vital signs: Vital Signs Temperature 96.5 F L 06/07/22 22:20 Pulse Rate 80 06/08/22 00:17 Respiratory Rate 20 H 06/08/22 00:17 Blood Pressure 101/63 06/08/22 00:17 Pulse Oximetry 99 06/08/22 00:17 Oxygen Delivery Me thod 06/08/22 00:17 Fraction of Inspir ed Oxygen 40 06/07/22 23:35 MDM - SOB/Dyspnea Medical Decision Making 82-year-old female with dysphagia 40s presenting to the emergency department. Initial vital signs demonstrate hypotension with 80s over 50s pressures, no compensatory tachycardia, and hypoxia not on CPAP. Diagnoses include severe CHF exacerbation, PE, ACS, pneumonia, pneumothorax, other cardiopulmonary pathology. Feel most consistent with CHF exacerbation initially until labs returned evidencing other concomitant pathology that required blood transfusion and further actions. Alternated from EMS CPAP to our CPAP, provided pressure medications, and reported cardiac index by initially utilizing dobutamine. Dr. Lowe consulted out of concern for continued decompensation and hypotension despite high dobutamine drip. Advises norepinephrine in addition over milrinone or epinephrine which improved patient's blood pressure. Labs returned demonstrating increased INR evidencing warfarin use concordant with patient's home medications. Patient also is profoundly anemic with a drop of almost 50% of normal baseline 2 months ago. Provide transfusion, dobutamine, norepinephrine, furosemide additional dose, placed central line, continued CPAP, rectal exam without prior blood, and initiate transfer the [facility] to [facility] for elevated level of care. I consulted general surgery at our institution for possible scope, however, general surgery feel comfortable scoping a hemodynamically unstable patient with high likelihood of brisk GI bleeding given degree of loss and decompensation evidenced on labs and clinical exam. 2 units of PRBCs emergency release were provided. Patient should also receive Kcentra for reversal of warfarin in critical illness with active bleeding.. Patient will be transferred. Patient transferred successfully without further decompensation after central line placement. Lab Data 06/07/22 18:30 06/07/22 18:30 Labs/Radiology: Radiology Impressions Chest X-Ray 06/07/22 19:20 IMPRESSION: Slight worsening of right basilar opacity as described above. KUB X-Ray 06/07/22 22:47 IMPRESSION: Left femoral catheter position as above. Laboratory Results WBC 5.9 10^3/uL (4.0-10.0) 06/07/22 18:30 RBC 2.14 10^6/uL (4.1-5.3) L 06/07/22 18:30 Hgb 6.9 g/dL (11.5-15.3) L 06/07/22 18:30 Hct 23.7 % (37.0-47.0) L 06/07/22 18:30 MCV 110.7 fl (81-99) H 06/07/22 18:30 MCH 32.2 pg (28.0-34.0) 06/07/22 18:30 MCHC 29.1 g/dL (30.0-36.0) L 06/07/22 18: RDW 18.0 % (12.1-15.1) H 06/07/22 18:30 Plt Count 171 10^3/cmm (130-400) 06/07/22 18:30 MPV 12.8 fL (7.4-10.4) H 06/07/22 18:30 Neut % (Auto) 61.5 % 06/07/22 18:30 Lymph % (Auto) 26.5 % 06/07/22 18:30 [place] % (Auto) 8.8 % 06/07/22 18: Eos % (Auto) 1.4 % 06/07/22 18: Baso % (Auto) 1.5 % 06/07/22 18:30 Neut # (Auto) 3.64 10^3/uL (1.8-7.7) 06/07/22 18: Lymph # (Auto) 1.6 10^3/uL (0.8-4.8) 06/07/22 18:30 [place] # (Auto) 0.5 10^3/uL (0.2-0.9) 06/07/22 18:30 Eos # (Auto) 0.1 10^3/uL (0.0-0.8) 06/07/22 18:30 Baso # (Auto) 0.1 10^3/uL (0.0-0.1) 06/07/22 18: Nucleated RBC % (auto) 0.8 % 06/07/22 18: Nucleated RBCs # 0.1 /100WBC 06/07/22 18:30 PT 46.50 SECONDS (12.1-14.9) H 06/07/22 18:30 INR 4.75 (0.8-1.2) H 06/07/22 18:30 APTT 73.8 SECONDS (23.9-36.7) H 06/07/22 18:30 Sodium 140 mmol/L (136-145) 06/07/22 18:30 Potassium 6.1 mmol/L (3.5-5.1) H 06/07/22 18:30 Chloride 103 mmol/L (98-107) 06/07/22 18:30 Carbon Dioxide 27 mmol/L (22-29) 06/07/22 18:30 Anion Gap 16.1 (5-19) 06/07/22 18:30 BUN 49 mg/dL (8-23) H 06/07/22 18:30 Creatinine 1.6 mg/dL (0.5-0.9) H 06/07/22 18:30 GFR Calculation Not Reportable 06/07/22 18: Glucose 99 mg/dL (65-115) 06/07/22 18:30 Calculated Osmolality 303 mOsm/kg (285-295) H 06/07/22 18:30 Lactate 1.3 mmol/L (0.5-2.2) 06/07/22 19:23 Calcium 8.5 mg/dL (8.5-10.5) 06/07/22 18:30 Magnesium 2.7 mg/dL (1.7-2.3) H 06/07/22 18:30 Total Bilirubin 0.4 mg/dL (0.15-1.2) 06/07/22 18:30 AST 22 U/L (0-32) 06/07/22 18:30 ALT 12 U/L (0-33) 06/07/22 18:30 Alkaline Phosphatase 128 U/L (35-105) H 06/07/22 18:30 Troponin T Baseline 23 ng/L (0-10) H 06/07/22 18:30 NT-Pro-B Natriuret Pep 691 pg/mL (0-450) H 06/07/22 18:30 Total Protein 6.5 g/dL (6.6-8.7) L 06/07/22 18:30 Albumin 3.2 g/dL (3.5-5.2) L 06/07/22 18:30 Globulin 3.3 g/dL (1.3-4.6) 06/07/22 18:30 Urine Color Yellow (Yellow) 06/07/22 20:09 Urine Appearance Clear (CLEAR) 06/07/22 20:09 Urine pH 5 (5-7) 06/07/22 20:09 Ur Specific [place] 1.010 (1.005-1.030) 06/07/22 20:09 Urine Protein Neg (Negative) 06/07/22 20:09 Urine Glucose (UA) Norm (Normal) 06/07/22 20:09 Urine Ketones Negative (Negative) 06/07/22 20:09 Urine Blood Neg (Negative) 06/07/22 20:09 Urine Nitrate Negative (Negative) 06/07/22 20:09 Urine Bilirubin Neg (Negative) 06/07/22 20:09 Urine Urobilinogen Neg mg/dL (Negative) 06/07/22 20:09 Ur Leukocyte Esterase Negative (Negative) 06/07/22 20:09 Influenza Type A Ag negative (Negative) 06/07/22 19:38 Influenza Type B Ag negative (Negative) 06/07/22 19:38 SARS-CoV-2 Ag (Rapid) negative (Negative) 06/07/22 19:38 Blood Type B Positive 06/07/22 21:26 Rho(D) Type Positive 06/07/22 21:26 Antibody Screen Negative 06/07/22 21:26 Crossmatch See Detail 06/07/22 21:26 Critical Care Time Critical Care Time: Critical Care Time: Yes Total Critical Care Time: 45 Attestation: 45 minutes of critical care time were devoted to the care of this patient separate from any billable procedures. I spent this time bedside titrating vasoactive drips, multiple pressor medications, intravenous nitroglycerin, BiPAP with respiratory therapy, and repositioning the patient for best aeration. Without these interventions and due to the patient's critical illness, patient would have decompensated and likely as a result. Discharge Plan Discharge Patient Disposition: Xfer Short-Term Hosp Condition: Stable Discharge Orders: Discharge ED (Routine); Ordered 06/07/22 Ordered By: Hussain Kent Referrals: Neeraj Cardoza MD [Primary Care Provider] - Coding Level of Care Code ED Measuring Machine Operator for Loveg Roberta
[2022-06-07] MEDS: calcium gluconate 0.9% NaCL 1 GM/50 ML PREMIX IV (22:02)
[2022-06-07] MEDS: FUROsemide 10 mg/mL SDV 4mL 40 MG IVP (22:10)
[2022-06-07] MEDS: sodium chloride 0.9% 100 mL Bag 50 ML IV (22:20)
[2022-06-07] MEDS: insulin regular-human 100 units/1 mL 10 UNIT IVP (22:31)
--- NOTE | 2022-06-07 22:47 | XRR_ITS ---
PROCEDURE INFORMATION: Exam: XR Abdomen Exam date and time: 06/07/2022 10:59 PM Age: 82 years old Clinical indication: Device placement; Vascular catheter; Additional info: Femoral central placement TECHNIQUE: Imaging protocol: Radiologic exam of the abdomen. Views: Frontal supine view of the abdomen. 1 View. COMPARISON: CT abdomen pelvis con [id number] 10/01/2021 5:58 PM FINDINGS: Tubes, catheters and devices: There is a left femoral catheter probably guide wire tip projecting at L3-L4 disc space, at/near the lower IVC/iliac bifurcation. However the catheter tip is probably somewhat lower at about L5, possibly in the left upper iliac vein. Gastrointestinal tract: Nonspecific bowel gas pattern. Intraperitoneal space: Limited AP portable supine views submitted. The most superior aspect of the abdomen is not included. Bones/joints: No acute findings. XR/XR KUB portable [id number] IMPRESSION: Left femoral catheter position as above.
[2022-06-07] MEDS: hum prothrombin cplx(pcc)4fact 1,000 UNIT, hum prothrombin cplx(pcc)4fact 500 UNIT in e... 504 UNIT IV (22:50)
[2022-06-08 00:17] VITALS: BP 101/63; PULSE 80; RESP 20; O2SAT 99
[2022-06-08] MEDS: DOBUTamine drip 500 MG/250 ML PREMIX 50.62 MG IV (00:31)
[2022-06-09 03:31] LABS: Glucose Point of Care 203 mg/dL (70-110)
== END 2022-06-08 00:40 | disposition short-term general hospital (02) ==
PROVIDERS: Hospitalist; Emergency Provider General Practice; PCP Family Medicine
DX: R06.00 Dyspnea, unspecified (principal); I25.10 Atherosclerotic heart disease of native coronary artery without angina pectoris; I11.0 Hypertensive heart disease with heart failure; I50.30 Unspecified diastolic (congestive) heart failure; Z95.0 Presence of cardiac pacemaker
CPT/HCPCS: 36416; 36556; 51702; 71045; 74018; 80053; 81003; 82962; 83605; 83735; 83880; 84484; 85025; 85610; 85730; 86850; 86900; 86920; 87426; 87804; 93005; 94660; 96365; 96366; 96367; 96375; 99291; J0610; J1250; J1815; J1940; J2930; J3490; J7060; J7168; P9016

== ENCOUNTER 2022-06-22 10:32 | Inpatient (IN) | payer MEDICARE, MEDICAID, SELFPAY ==
[2022-06-22] VITALS (81 sets, daily range): BP systolic 72–141; BP diastolic 47–82; PULSE 78–93; RESP 14–28; TEMP 33.8–36.8; O2SAT 71–100; BMI 30.7
--- NOTE | 2022-06-22 11:03 | XR_ITS ---
WS: [id number] EXAMINATION: XR chest 1V portable [id number] REASON FOR EXAM: dyspnea, chf COMPARISON: 06/07/2022 ORDER DATE: 06/22/2022 11:12 AM TECHNIQUE: A single, portable frontal chest x-ray was obtained. FINDINGS: Left chest wall single chamber cardiac device remains in place. Lungs: There does appear to be interlobular septal thickening and some early alveolar component opaci ties in the upper lobes consistent with pulmonary vascular congestion. Increasing right basilar opaci ty from worsening of atelectasis/pneumonia and right pleural effusion noted. Postobstructive or aspiration process should be excluded. Continued follow-up should be obtained. CT correlation may also be considered to exclude central obstructive lesion. Left lung is grossly clear. /Mediastinum: Cardiac silhouette appears enlarged and stable. Bones/joints: No acute osseous findings. XR/XR chest 1V portable [id number] IMPRESSION: Slight worsening of right basilar opacity as described above. Due to increasing atelectasis and consolidation with effusion. Developing pulmonary vascular congestion Cardiomegaly unchanged
[2022-06-22 11:19] LABS: Basophils % 0.5 %; Eosinophils % 0.5 %; Hematocrit 30.8 % (37.0-47.0); Hemoglobin 8.8 g/dL (11.5-15.3); Lymphocytes % 16.8 %; Mean Corpuscular HGB Conc 28.6 g/dL (30.0-36.0); Mean Corpuscular Hemoglobin 29.6 pg (28.0-34.0); Mean Corpuscular Volume 103.7 fl (81-99); Mean Platelet Volume 12.7 fL (7.4-10.4); Monocytes # 0.6 10^3/uL (0.2-0.9); Monocytes % 9.2 %; Neutrophils # 4.37 10^3/uL (1.8-7.7); Neutrophils % 72.7 %; Nucleated Red Blood Cells % 0.5 %; Platelet Count 232 10^3/cmm (130-400); Red Blood Count 2.97 10^6/uL (4.1-5.3); Red Cell Distribution Width 17.9 % (12.1-15.1)
[2022-06-22 11:25] LABS: INR 1.26 (0.8-1.2)
--- NOTE | 2022-06-22 11:29 | ED_ITS ---
HPI - Weakness General: Chief complaint: Weakness Stated complaint: LETHARGIC/ TROUBLE BREATHING Time Seen by Provider: 06/22/22 11:01 History of Present Illness: Patient presents to the ER by EMS for lethargy and trouble breathing. Patient's family are the main history presenters for the patient. Patient is more weak than normal and difficult to arouse. This all started this morning. Patient was able to get up this morning with the help and with her walker to use the restroom in the bathroom. Since then patient acts like she is very sleepy and has a hard time staying awake. Patient is very hard of hearing. Patient recently was transferred to [facility] where she spent a pproximately 1 week in the hospital therefore severe CHF, anemia and she received 2 units of blood. Patient does have a history of CHF, COPD, renal insufficiency, iron deficiency anemia, patient has not been on her Coumadin since discharge from [facility]. MD Complaint: generalized weakness and lack of energy Onset (ago): day(s) (Today) Duration: constant Location: generalized Severity: moderate Relieving factors: none Exacerbating factors: none Associated symptoms: Reports melena (Patient is on iron supplementation) and short of breath; Denies chest pain, chills, fever(s), headache(s), nausea or vomiting Review of Systems General: Reports: ROS unobtainable due to medical condition and Other (Review of systems was obtained per family members.) Const: Denies: fever(s) or chills ENMT: Denies: throat pain or odynophagia Card: Reports: edema, dyspnea on exertion and orthopnea; Denies: chest pain, palpitations or irregular heart rhythm Resp: Reports: dyspnea GI: Reports: melena (Patient is on iron supplementation); Denies: abdominal pain, nausea, vomiting, diarrhea or hematochezia Musc: Reports: muscle weakness Neuro: Reports: weakness in extremities; Denies: headache(s) or numbness in extremities Psych: Denies: anxiety, depression, mood swings or panic attacks Endo: Reports: tired all the time; Denies: polyuria or polydipsia PFS ED PFSH: Medical History Acute kidney injury superimposed on CKD Atrial fibrillation CAD (coronary artery disease) Dehydration Diastolic heart failure GERD (gastroesophageal reflux disease) HTN (hypertension) Iron deficiency anemia Left ankle swelling Myoclonus Osteoarthritis Pacemaker Pacemaker syndrome Pleural effusion Varicose veins of left lower extremity with other complications Surgical History Previous back surgery S/P cardiac pacemaker procedure S/P cataract extraction S/P hysterectomy S/P tubal ligation Family History Father , [place] age 44 Myocardial infarction Social History Smoking and tobacco status: never smoked Physical Exam Const: COMMON NORMALS: average body habitus, patient oriented x3 and well nourished OTHER: Patient is very hard of hearing and appears very somnolent but will awake to shake her head yes or no to simple questions HENMT: COMMON NORMALS: normocephalic, atraumatic, external ears normal and Normal external nose present HEAD & SCALP: normocephalic and atraumatic NOSE: Normal external nose present EXTERNAL EAR: Yes external ears normal Eye: COMMON NORMALS: Equal, round and reactive pupils present, EOMs intact bilaterally, conjunctivae normal and no scleral icterus CONJUNCTIVA: Yes conj unctivae normal PUPIL: Yes Equal, round and reactive pupils present Neck/C-Spine: COMMON NORMALS: full ROM, no lymphadenopathy, supple, no JVD and Thyroid normal THYROID: Thyroid normal Lymph: LYMPHATIC: no lymphadenopathy noted Chest: COMMONS NORMALS: normal inspection of the chest and normal palpation of entire chest wall Resp: COMMON NORMALS: No retractions and No use of accessory muscles AUSCULTATION: wheezes scattered wheezes and diminished lung sounds Cardio: COMMON NORMALS: no JVD, regular rate, regular rhythm, S1 normal heart sound present and S2 normal heart sound present RATE: regular rate RHYTHM: regular rhythm HEART SOUNDS: S1 normal heart sound present, S2 normal heart sound present and Murmur heart sound present GI: COMMON NORMALS: Normal to inspection, nondistended, normoactive bowel soun ds present, Soft to palpation, non-tender, No hepatosplenomegaly present and no masses PALPATION: Yes Soft to palpation and Yes No hepatosplenomegaly present Neuro: COMMON NORMALS: patient oriented x3, CN's II-XII intact bilaterally, moves all extremities, no focal motor deficits and no sensory deficits noted Course Vital Signs: Vital signs: Vital Signs Temperature 98.2 F 06/22/22 10:35 Pulse Rate 90 06/22/22 10:35 Respiratory Rate 22 H 06/22/22 10:35 Blood Pressure 91/66 06/22/22 10:35 Pulse Oximetry 95 06/22/22 10:35 Oxygen Delivery Me thod 06/22/22 10:35 Oxygen Flow Rate 4 06/22/22 10:35 MDM - Weakness Medical Decision Making Patient presents to the ER by ambulance with complaints of lethargy and drowsiness. Patient is very hard to awake and needs constant stimulation otherwise she appears to fall back asleep. When patient does arouse she will shake her head yes or no to questions and follow simple commands. Patient does have 3+ pitting edema bilateral lower extremities. Patient was recently transferred to [facility] for severe CHF and possible GI bleed. Patient has not started back on her Coumadin since leaving [facility]. Patient does have a history of COPD and is and is on multiple inhalers. Physical exam was performed on the patient as well as lab work that showed patient has a hemoglobin of 8.8, ABG showed pH of 7.25, PCO2 of 78.4, PO2 of 66.7, creatinine 1.9, BNP of 2703, urinalysis was positive for 3+ blood, nitrates leukocyte Estrace and 2+ bacteria, imaging read by the radiologist showed slight worsening of right basilar opacity consistent with atelectasis and/or pneumonia and pleural effusion, head CT was essentially negative. Patient was placed on BiPAP per respiratory therapy and is doing well. Patient was given 400 mg of Cipro IV for her UTI. Dr. Maurer was consulted and informed of patient and laboratory findings and suggested admission to [facility]. Differential Diagnosis Likely anemia, hypoglycemia and dehydration; Unlikely acute myocardial infarction, hypothyroidism, rhabdomyolysis or sepsis Medical Records I reviewed the patient's medical records. Lab Data I reviewed the patient's lab results. 06/22/22 10:15 06/22/22 10:15 Radiology Impressions Chest X-Ray 06/22/22 11:03 IMPRESSION: Slight worsening of right basilar opacity as described above. Due to increasing atelectasis and consolidation with effusion. Developing pulmonary vascular congestion Cardiomegaly unchanged Head CT 06/22/22 11:40 IMPRESSION: 1. No evidence of intracranial hemorrhage or mass effect. 2. Mild small vessel changes. Mild parenchymal volume loss. 3. Vascular calcification. 4. No acute intracranial findings. Laboratory Results WBC 6.0 10^3/uL (4.0-10.0) 06/22/22 10:15 RBC 2.97 10^6/uL (4.1-5.3) L 06/22/22 10:15 Hgb 8.8 g/dL (11.5-15.3) L 06/22/22 10:15 Hct 30.8 % (37.0-47.0) L 06/22/22 10:15 MCV 103.7 fl (81-99) H 06/22/22 10:15 MCH 29.6 pg (28.0-34.0) 06/22/22 10:15 MCHC 28.6 g/dL (30.0-36.0) L 06/22/22 10:15 RDW 17.9 % (12.1-15.1) H 06/22/22 10:15 Plt Count 232 10^3/cmm (130-400) 06/22/22 10:15 MPV 12.7 fL (7.4-10.4) H 06/22/22 10:15 Neut % (Auto) 72.7 % 06/22/22 10:15 Lymph % (Auto) 16.8 % 06/22/22 10:15 Scurry % (Auto) 9.2 % 06/22/22 10:15 Eos % (Auto) 0.5 % 06/22/22 10:15 Baso % (Auto) 0.5 % 06/22/22 10:15 Neut # (Auto) 4.37 10^3/uL (1.8-7.7) 06/22/22 10:15 Lymph # (Auto) 1.0 10^3/uL (0.8-4.8) 06/22/22 10:15 Scurry # (Auto) 0.6 10^3/uL (0.2-0.9) 06/22/22 10:15 Eos # (Auto) 0.0 10^3/uL (0.0-0.8) 06/22/22 10:15 Baso # (Auto) 0.0 10^3/uL (0.0-0.1) 06/22/22 10:15 Nucleated RBC % (auto) 0.5 % 06/22/22 10:15 Nucleated RBCs # 0.0 /100WBC 06/22/22 10:15 PT 16.20 SECONDS (12.1-14.9) H 06/22/22 10:15 INR 1.26 (0.8-1.2) H 06/22/22 10:15 Specimen Type Arterial 06/22/22 11:47 Sample Site Brachial, left 06/22/22 11:47 ABG pH 7.25 (7.35-7.45) L 06/22/22 11:47 ABG pCO2 78.4 mmHg (35-45) H* 06/22/22 11:47 ABG pO2 66.7 mmHg (80.0-100.0) L 06/22/22 11:47 ABG HCO3 34.3 mmol/L (22-26) H 06/22/22 11:47 ABG O2 Saturation 90.0 06/22/22 11:47 ABG Base Excess 5.5 mmol/L (-2.0-2.0) H 06/22/22 11:47 Ernesto Test N/a 06/22/22 11:47 A-a O2 Gradient 5.4 mmHg (5-10) 06/22/22 11:47 Hematocrit 28.4 % (37-47) L 06/22/22 11:47 Hgb O2 Saturation 87.4 % (95-100) L 06/22/22 11:47 Carboxyhemoglobin 2.0 %THgb (0.4-20.1) 06/22/22 11:47 Methemoglobin 0.9 % (0.4-1.5) 06/22/22 11:47 Total Hemoglobin 9.3 g/dL (12-16) L 06/22/22 11:47 Sodium 141.0 mmol/L (131-143) 06/22/22 11:47 Potassium 3.2 mmol/L (3.5-5.0) L 06/22/22 11:47 Glucose 113.0 mg/dL (70-115) 06/22/22 11:47 Ionized Calcium 1.2 mmol/L (1.1-1.4) 06/22/22 11:47 O2 Delivery Device Nc 06/22/22 11:47 O2 Liters/Min 2.0 % 06/22/22 11:47 FiO2 28.0 % 06/22/22 11:47 Research Epidemiologist ID Amh 06/22/22 11:47 Sodium 140 mmol/L (136-145) 06/22/22 10:15 Potassium 3.6 mmol/L (3.5-5.1) 06/22/22 10:15 Chloride 96 mmol/L (98-107) L 06/22/22 10:15 Carbon Dioxide 31 mmol/L (22-29) H 06/22/22 10:15 Anion Gap 16.6 (5-19) 06/22/22 10:15 BUN 23 mg/dL (8-23) 06/22/22 10:15 Creatinine 1.9 mg/dL (0.5-0.9) H 06/22/22 10:15 GFR Calculation Not Reportable 06/22/22 10:15 Glucose 114 mg/dL (65-115) 06/22/22 10:15 Calculated Osmolality 295 mOsm/kg (285-295) 06/22/22 10:15 Lactic Acid 2.1 mmol/L (0.5-2.2) 06/22/22 11:00 Calcium 8.4 mg/dL (8.5-10.5) L 06/22/22 10:15 Magnesium 1.9 mg/dL (1.7-2.3) 06/22/22 10:15 Total Bilirubin 0.6 mg/dL (0.15-1.2) 06/22/22 10:15 AST 24 U/L (0-32) 06/22/22 10:15 ALT 17 U/L (0-33) 06/22/22 10:15 Alkaline Phosphatase 130 U/L (35-105) H 06/22/22 10:15 NT-Pro-B Natriuret Pep 2703 pg/mL (0-450) H 06/22/22 10:15 Total Protein 7.0 g/dL (6.6-8.7) 06/22/22 10:15 Albumin 3.3 g/dL (3.5-5.2) L 06/22/22 10:15 Globulin 3.7 g/dL (1.3-4.6) 06/22/22 10:15 Procalcitonin 0.16 ng/mL (0-0.5) 06/22/22 11:03 Urine Color Yellow (Yellow) 06/22/22 11:35 Urine Appearance Hazy (CLEAR) A 06/22/22 11:35 Urine pH 5 (5-7) 06/22/22 11:35 Ur Specific [place] 1.025 (1.005-1.030) 06/22/22 11:35 Urine Protein 3+ (Negative) H 06/22/22 11:35 Urine Glucose (UA) Norm (Normal) 06/22/22 11:35 Urine Ketones 1+ (Negative) H 06/22/22 11:35 Urine Blood 3+ (Negative) H 06/22/22 11:35 Urine Nitrate Positive (Negative) H 06/22/22 11:35 Urine Bilirubin 1+ (Negative) H 06/22/22 11:35 Urine Urobilinogen 1+ mg/dL (Negative) H 06/22/22 11:35 Ur Leukocyte Esterase 1+ (Negative) H 06/22/22 11:35 Urine RBC 15-25 /hpf (0-2) H 06/22/22 11:35 Urine WBC 5-10 /hpf (0-5) H 06/22/22 11:35 Ur Squamous Epith Cells 10-15 /hpf (0-5) H 06/22/22 11:35 Amorphous Sediment 2+ /hpf 06/22/22 11:35 Urine Bacteria 2+ /hpf (NONE) H 06/22/22 11:35 EKG Data EKG 1: I personally reviewed and interpreted this EKG as follows: EKG interpretation date: 06/22/22 EKG interpretation time: 11:44 Prior EKG tracings: not available for review Interpretation: EKG showed normal ventricular rhythm at 80 bpm, electronic ventricular pacemaker, prolonged QT interval, QRS duration of 209, QTc of 556, Discharge Plan Discharge Patient Disposition: Admitted As Inpatient Clinical Impression: Acute respiratory failure with hypoxia and hypercapnia, Pneumonia, Urinary tract infection Condition: Stable Prescriptions: No Action Amitiza 24 mcg capsule 24 mcg PO BID aspirin [Adult Low Dose Aspirin] 81 mg tablet,delayed release (DR/EC) 81 mg PO BEDTIME multivitamin Tablet 1 tab PO BEDTIME eszopiclone [Lunesta] 2 mg tablet 2 mg PO BEDTIME hydrocodone-acetaminophen 5-325 mg tablet 1 tab PO BID PRN (Reason: Pain) Tatyana Aerosphere 160-9-4.8 mcg/actuation HFA aerosol inhaler 2 inh inhalation BID ropinirole 2 mg tablet 2 mg PO BEDTIME warfarin 2 mg tablet 2 mg PO DAILY Rx Instructions: 2mg MWF, 1mg all other days miscellaneous medical supply Misc See Rx Instructions miscellaneous .COMPLEX Qty: 1 0RF Rx Instructions: Acapella Device furosemide 40 mg tablet 40 mg PO .3 times weekly PRN (Reason: edema) pregabalin [Lyrica] 25 mg capsule 25 mg PO DAILY Qty: 30 3RF levalbuterol HCl [Xopenex] 0.63 mg/3 mL solution for nebulization 0.63 mg inhalation TID PRN (Reason: shortness of breath or wheezing) Qty: 72 3RF levalbuterol tartrate [Xopenex HFA] 45 mcg/actuation HFA aerosol inhaler 2 inh inhalation Q6H Qty: 15 3RF guaifenesin [Mucinex Fast-Max Chest-Congest] 100 mg/5 mL liquid 200 mg PO Q4H PRN (Reason: cough) Qty: 473 3RF potassium chloride 20 mEq tablet extended release 20 meq PO DAILY PRN (Reason: Take with Furosemide) Qty: 90 3RF propranolol 20 mg tablet 20 mg PO BID Qty: 60 1RF metoprolol succinate 25 mg tablet extended release 24 hr 25 mg PO DAILY Qty: 90 3RF lansoprazole [Prevacid] 30 mg capsule,delayed release(DR/EC) 30 mg PO BID Qty: 180 3RF montelukast [Singulair] 10 mg tablet 10 mg PO DAILY Qty: 30 5RF sennosides [senna] 8.6 mg Tablet See Rx Instructions .ROUTE .COMPLEX Rx Instructions: 17.2 mg orally in the morning / 8.6 mg orally in the evening pregabalin 150 mg capsule 150 mg PO BID PreserVision AREDS-2 250-90-40-1 mg Capsule 1 tab PO BID nystatin 100,000 unit/mL Suspension 100,000 unit PO BID Rx Instructions: administer 1/2 of dose in each side of the mouth ferrous gluconate 324 mg (38 mg iron) Tablet 324 mg PO DAILY Referrals: Neeraj Cardoza MD [Primary Care Provider] - Coding Level of Care Code ED Outside Plant Field Engineer for Arturo Granados
--- NOTE | 2022-06-22 11:40 | CT_ITS ---
WS: [id number] CT HEAD TECHNIQUE: Noncontrast CT of the head obtained from the skullbase to the vertex. CLINICAL INFORMATION: ams, lethargy COMPARISON: October 01, 2021 DLP: 1118.[address] scans at [facility] use at least one of these dose optimization techniques: automated e xposure control; mA and/or kV adjustment per patient size (includes targeted exams where dose is matc hed to clinical indication); or iterative reconstruction. FINDINGS: No evidence of intracranial hemorrhage or mass effect. Ventricular system and basal cisterns are sheets nt. Mild small vessel changes with mild parenchymal volume loss. Vascular calcification. No extra-axi al fluid collections. No evidence of mass or mass effect. Mastoid air cells are well aerated. Normal posterior nasopharynx. Normal parapharyngeal fat. Small re tention cyst or polyps in the RIGHT maxillary sinus. CT/CT head wo con* [id number] IMPRESSION: 1. No evidence of intracranial hemorrhage or mass effect. 2. Mild small vessel changes. Mild parenchymal volume loss. 3. Vascular calcification. 4. No acute intracranial findings.
--- NOTE | 2022-06-22 11:44 | ECG_ITS ---
[facility] Test Date: 2022-06-22 Pat Name: Megan Das Department: Room: Gender: Female [employer]: : 1940 Requested By: Neil Robledo Order Number: [id number] Sarnaya MD: Judy Chase M.D. Measurements Intervals Beatty Rate: 80 P: 0 CO: 0 QRS: -35 QRSD: 209 T: 144 QT: 521 QTc: 601 Interpretive Statements ELECTRONIC VENTRICULAR PACEMAKER PROLONGED QT INTERVAL CRITICAL TEST RESULT Compared to ECG 06/07/2022 19:08:28 Prolonged QT interval now present Electronically Signed On 06-22-2022 23:40:41 CDT by Judy Chase M.D. [id number]
[2022-06-22 11:48] LABS: Alanine Aminotransferase 17 U/L (0-33); Albumin Level 3.3 g/dL (3.5-5.2); Alkaline Phosphatase 130 U/L (35-105); Anion Gap 16.6 (5-19); Aspartate Amino Transferase 24 U/L (0-32); Blood Urea Nitrogen 23 mg/dL (8-23); Calcium 8.4 mg/dL (8.5-10.5); Carbon Dioxide 31 mmol/L (22-29); Chloride 96 mmol/L (98-107); Globulin 3.7 g/dL (1.3-4.6); Glucose 114 mg/dL (65-115); Magnesium 1.9 mg/dL (1.7-2.3); NT Pro B Type Natriuretic Pept 2703 pg/mL (0-450); Osmolality Calculated 295 mOsm/kg (285-295); Potassium 3.6 mmol/L (3.5-5.1); Sodium 140 mmol/L (136-145); Total Bilirubin 0.6 mg/dL (0.15-1.2)
[2022-06-22 11:58] LABS: ABG PCO2 78.4 mmHg (35-45); ABG PH Result 7.25 (7.35-7.45); Alveolar-Arterial Oxygen Gradi 5.4 mmHg (5-10); Arterial Blood Gas Hematocrit 28.4 % (37-47); Base Excess ABG 5.5 mmol/L (-2.0-2.0); Blood Gas Operator Identificat AMH; Blood Gas Sample Site Brachial, left; Blood Gas Sample Type Arterial; HCO3 ABG 34.3 mmol/L (22-26); HGB O2 Sat 87.4 % (95-100); Ionized Calcium Level - ABG 1.2 mmol/L (1.1-1.4); Methemoglobin 0.9 % (0.4-1.5); Oxygen Device NC; PO2 ABG 66.7 mmHg (80.0-100.0); Potassium Level - ABG 3.2 mmol/L (3.5-5.0); Total Hemoglobin 9.3 g/dL (12-16)
[2022-06-22 11:59] LABS: Add Urine Microscopic? YES; Bilirubin Urine 1+ (Negative); Blood Urine 3+ (Negative); Glucose Urine UA Norm (Normal); Ketones Urine 1+ (Negative); Leukocyte Esterase Urine 1+ (Negative); Nitrate Urine Positive (Negative); Protein Urine 3+ (Negative); Specific Gravity, Urine 1.025 (1.005-1.030); Urine Appearance Hazy (CLEAR); Urine Color Yellow (Yellow); Urobilinogen Urine 1+ mg/dL (Negative); pH Urine 5 (5-7)
[2022-06-22 12:25] LABS: Lactic Sepsis W/Reflex 2.1 mmol/L (0.5-2.2)
[2022-06-22 12:26] LABS: Amorphous Sediment Urine 2+ /hpf; Bacteria Urine 2+ /hpf; RBC Urine 15-25 /hpf (0-2)
[2022-06-22 12:27] LABS: Add Urine Culture? No
[2022-06-22 12:32] LABS: Procalcitonin 0.16 ng/mL (0-0.5)
[2022-06-22] MEDS: ciprofloxacin 400 MG/200 ML PREMIX 200 MG IV (13:14)
[2022-06-22 13:46] LABS: Reflex Lactate Order REFLEX LACTIC ORDERD
--- NOTE | 2022-06-22 14:35 | PC.NURSE ---
BRUISING NOTED ACROSS PT CHEST. FAMILY STATES PT WEAR CHEST PHYSIOTHERAPY VEST. DR GERBER NOTIFIED NO NEW VERBAL ORDERS AT THIS TIME.
[2022-06-22 14:51] LABS: Lactic Acid level (Lactate) 1.8 mmol/L (0.5-2.2)
[2022-06-22 15:14] LABS: Adenovirus Not Detected (NOT DETECT); Chlamydia Pneumoniae Not Detected (NOT DETECT); Coronavirus 229E,HKU1,NL63,OC4 Not Detected (NOT DETECT); Human Metapneumovirus Not Detected (NOT DETECT); Human Rhinovirus/Enterovirus Not Detected (NOT DETECT); Influenza A Not Detected (NOT DETECT); Influenza A H1 Not Detected (NOT DETECT); Influenza A H1-2009 Not Detected (NOT DETECT); Influenza A H3 Not Detected (NOT DETECT); Influenza B Not Detected (NOT DETECT); Mycoplasma Pneumoniae Not Detected (NOT DETECT); Parainfluenza Virus Type 1 Not Detected (NOT DETECT); Parainfluenza Virus Type 2 Not Detected (NOT DETECT); Parainfluenza Virus Type 3 Not Detected (NOT DETECT); Parainfluenza Virus Type 4 Not Detected (NOT DETECT); Respiratory Syncytial Virus A Not Detected (NOT DETECT); Respiratory Syncytial Virus B Not Detected (NOT DETECT); SARS-COV-2 Not Detected (NOT DETECT)
[2022-06-22 15:21] LABS: ABG PCO2 55.9 mmHg (35-45); ABG PH Result 7.39 (7.35-7.45); Alveolar-Arterial Oxygen Gradi 2.5 mmHg (5-10); Arterial Blood Gas Hematocrit 24.4 % (37-47); Base Excess ABG 7.7 mmol/L (-2.0-2.0); Blood Gas Operator Identificat AMH; Blood Gas Sample Site Brachial, left; Blood Gas Sample Type Arterial; HCO3 ABG 33.6 mmol/L (22-26); HGB O2 Sat 95.7 % (95-100); Ionized Calcium Level - ABG 1.1 mmol/L (1.1-1.4); Methemoglobin 0.8 % (0.4-1.5); Oxygen Device BIPAP; Oxygen Saturation ABG 98.5; PO2 ABG 92.1 mmHg (80.0-100.0); Potassium Level - ABG 3.1 mmol/L (3.5-5.0)
--- NOTE | 2022-06-22 15:21 | CTR_ITS ---
PROCEDURE INFORMATION: Exam: CT Chest Without Contrast; Diagnostic Exam date and time: 06/22/2022 7:58 PM Age: 82 years old Clinical indication: Shortness of breath; Prior surgery; Surgery date: 6+ months; Surgery type: Pacer; Additional info: SOB TECHNIQUE: Imaging protocol: Diagnostic computed tomography of the chest without contrast. Radiation optimization: All CT scans at this facility use at least one of these dose optimization techniques: automated exposure control; mA and/or kV adjustment per patient size (includes targeted exams where dose is matched to clinical indication); or iterative reconstruction. REPORTING DATA: Count of CT and Cardiac NM exams in prior 12 months: This patient has received 5 known CTs and 0 known cardiac nuclear medicine studies in the 12 months prior to the current study. COMPARISON: CT chest wo con [id number] 10/20/2021 9:40 AM RADIATION DOSE METRICS: Total DLP (mGy-cm): 530.47 FINDINGS: Lungs: Bilateral right greater and left lower lobe airspace infiltrates. Pleural spaces: Large right and small left pleural effusions. Heart: Cardiomegaly. Coronary arteries: Coronary artery atherosclerotic calcifications. Lymph nodes: Unremarkable. No enlarged lymph nodes. 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 Kidneys and ureters: Right kidney cyst, negative for follow-up advised. Intraperitoneal space: Ascites in the upper abdomen. Bones/joints: Unremarkable. No acute fracture. Soft tissues: Unremarkable. CT/CT chest wo con [id number] IMPRESSION: 1. Bilateral right greater than left lower lobe airspace infiltrates. 2. Ascending thoracic aorta dilated to 4.7 cm. 3. Cardiomegaly. 4. Coronary artery atherosclerotic calcifications. 5. Large right and small left pleural effusions. 6. Ascites in the upper abdomen. 7. Right kidney cyst, negative for follow-up advised. COMMENTS: Consistent with the [employer]'s Incidental Findings Committee white paper (J Am Lucinda Radiol 2018): Any incidental renal lesion less than 1 cm or classified as too small to characterize, or any incidental cystic renal lesion characterized as simple-appearing, is likely benign. No follow-up imaging is recommended for these lesions per consensus recommendations based on imaging criteria.
--- NOTE | 2022-06-22 15:23 | P.HP_ITS ---
Providers/Chief Complaint Admitting Physician: Abilio Maurer MD Primary Care Provider: Neeraj Cardoza MD Chief Complaint: LETHARGIC/ TROUBLE BREATHING History of Present Illness Megan Das is a 82 year old female with past medical history of atrial fibrillation, heart failure with reduced ejection fraction, coronary artery disease, status post pacemaker, CKD stage III, came in today with chief complaint of worsening lethargy as well as shortness of breath, it all started today in the morning,Patient was able to get up this morning with the help and with her walker to use the restroom in the bathroom.Since then patient acts like she is very sleepy and has a hard time staying awake.Patient is very hard of hearing.Patient recently was transferred to [facility] where she spent approximately 1 week in the hospital therefore severe CHF, anemia and she received [address] head without contrast: No acute intracranial pathology. X-ray chest as shown:Interlobular septal thickening and some early alveolar component opacities in the upper lobes consistent with pulmonary vascular congestion. Increasing right basilar opacity from worsening of atelectasis/pneumonia and right pleural effusion noted. Postobstructive or aspiration process should be excluded. Pertinent labs: WBC 6, H&H 8.8/ 30.8 , PLT : 232 , serum sodium 140, serum potassium 3.6, serum bicarb 31, BUN 23, serum creatinine 1.9, proBNP 2703, procalcitonin 0.16 ABG: pH : 7.25, PCO2 78, PO2 66, FiO2 28%, repeat ABG done in 2 hours: pH 7.39, PCO2 55, PO2 92, FiO2 25% Review of Systems General: Reports: ROS unobtainable due to mental status Medications/Allergies Home Medications Medication Instructions Recorded Confirmed Last Taken Type eszopiclone 2 mg tablet (Lunesta) 2 mg PO BEDTIME 05/16/19 06/22/22 06/21/22 History hydrocodone 5 mg-acetaminophen 325 1 tab PO BID PRN Pain 05/16/19 06/22/22 06/18/21 History mg tablet lubiprostone 24 mcg capsule 24 mcg PO BID 05/16/19 06/22/22 06/22/22 History (Amitiza) multivitamin 1 tab PO BEDTIME 05/16/19 06/22/22 06/22/22 History ropinirole 2 mg tablet 2 mg PO BEDTIME 10/11/20 06/22/22 06/21/22 History budesonide 160 mcg-glycopyr 9 2 inh inhalation BID 02/13/21 06/22/22 06/22/22 History mcg-formot 4.8 mcg/actuation HFA inhaler (Breztri Aerosphere) sennosides 8.6 mg tablet (senna) See Rx Instructions .Route .COMPLEX 06/18/21 06/22/22 06/22/22 History vit C 250 mg-vit E 90 mg-zinc 40 1 tab PO BID 06/18/21 06/22/22 06/22/22 History mg-copper 1 [id number] capsule (PreserVision AREDS-2) ferrous gluconate 324 mg (38 mg 324 mg PO DAILY 08/01/21 06/22/22 06/22/22 History iron) tablet nystatin 100,000 unit/mL oral 100,000 unit PO BID 08/01/21 06/22/22 10/01/21 History suspension furosemide 40 mg tablet 40 mg PO DAILY 01/19/22 06/22/22 06/22/22 History metoprolol succinate 25 mg 25 mg PO DAILY #90 tabs 03/10/22 06/22/22 06/21/22 Rx tablet,extended release 24 hr guaifenesin 100 mg/5 mL oral 200 mg (10 mL) PO Q4H PRN cough 03/26/22 06/22/22 Unknown Rx liquid (Mucinex Fast-Max Chest #473 mL Congestion) levalbuterol tartrate 45 2 inh inhalation Q6H #15 grams 03/26/22 06/22/22 06/22/22 Rx mcg/actuation aerosol inhaler (Xopenex HFA) lansoprazole 30 mg capsule,delayed 30 mg PO BID #180 caps 03/30/22 06/22/22 06/22/22 Rx release (Prevacid) montelukast 10 mg tablet 10 mg PO DAILY #30 tabs 06/02/22 06/22/22 06/21/22 Rx (Singulair) ipratropium bromide 21 mcg (0.03 2 spray intranasal TID PRN NASAL 06/22/22 06/22/22 Unknown History %) nasal spray DRAINAGE pregabalin 75 mg capsule (Lyrica) 75 mg PO DAILY 06/22/22 06/22/22 06/22/22 History propranolol 20 mg tablet 20 mg PO QAM 06/22/22 06/22/22 06/22/22 History Allergies Allergy/AdvReac Type Severity Reaction Status Date / Time atropine Allergy Unknown Unknown Verified 05/07/22 15:26 benztropine Allergy Unknown Unknown Verified 05/07/22 15:26 cefadroxil Allergy Unknown Unknown Verified 05/07/22 15:26 cimetidine Allergy Unknown Unknown Verified 05/07/22 15:26 enalapril Allergy Unknown Unknown Verified 05/07/22 15:26 enalaprilat Allergy Unknown Unknown Verified 05/07/22 15:26 gabapentin Allergy Unknown Unknown Verified 05/07/22 15:26 Sulfa (Sulfonamide Allergy Unknown Unknown Verified 05/07/22 15:26 Antibiotics) tramadol Allergy Unknown ADR-Itching Verified 05/07/22 15:26 zolpidem Allergy Unknown Unknown Verified 05/07/22 15:26 albuterol Allergy ALGY-Swell Verified 06/22/22 10:44 Lip/Tongue/Throat PFSH Acute PFSH: Medical History Acute kidney injury superimposed on CKD Atrial fibrillation CAD (coronary artery disease) Dehydration Diastolic heart failure GERD (gastroesophageal reflux disease) HTN (hypertension) Iron deficiency anemia Left ankle swelling Myoclonus Osteoarthritis Pacemaker Pacemaker syndrome Pleural effusion Varicose veins of left lower extremity with other complications Surgical History Previous back surgery S/P cardiac pacemaker procedure S/P cataract extraction S/P hysterectomy S/P tubal ligation Family History Father , [place] age 44 Myocardial infarction Social History Smoking and tobacco status: never smoked Vitals/I&O/Wt Last Vital Signs Temp 98.2 F 06/22/22 10:35 Pulse 80 06/22/22 14:23 Resp 18 06/22/22 14:23 BP 93/77 06/22/22 14:23 Pulse Ox 98 06/22/22 15:18 O2 Del Method 06/22/22 13:13 O2 Flow Rate 4 06/22/22 10:35 FiO2 25 06/22/22 15:18 Weight last 48 hrs Weight 83.915 kg Physical Exam HENMT: COMMON NORMALS: normocephalic and atraumatic HEAD & SCALP: normocephalic and atraumatic Resp: OTHER: Diminished air entry bilaterally Cardio: COMMON NORMALS: regular rate, regular rhythm, S1 normal heart sound present, S2 normal heart sound present, No gallops present (Cardio), No murmurs present (Cardio), No rub (Cardio) and Peripheral pulses 2+ throughout RATE: regular rate RHYTHM: regular rhythm HEART SOUNDS: S1 normal heart sound present and S2 normal heart sound present PERIPHERAL PULSES: Peripheral pulses 2+ throughout GI: COMMON NORMALS: Normal to inspection, nondistended, normoactive bowel sounds present, Soft to palpation, non-tender, No hepatosplenomegaly present and no masses AUSCULTATION: Yes normoactive bowel sounds PALPATION: Yes Soft to palpation and Yes No hepatosplenomegaly present RECTAL EXAM: deferred Extremity: COMMON NORMALS: no clubbing, cyanosis or edema and no pedal edema Neuro: COMMON NORMALS: patient oriented x3 Data 06/22/22 10:15 06/22/22 10:15 Micro: Microbiology 06/22/22 12:40 Blood Culture - Preliminary Blood SPECIMEN COLLECTED 06/22/22 12:35 Blood Culture - Preliminary Blood SPECIMEN COLLECTED A&P Assessment and plan (1) Acute respiratory failure with hypoxia and hypercapnia: (2) Pneumonia: Qualifiers: Laterality: right Lung location: lower lobe of lung Pneumonia type: due to unspecified organism Qualified Code(s): J18.9 - Pneumonia, unspecified organism (3) Urinary tract infection: Qualifiers: Hematuria presence: with hematuria Urinary tract infection type: acute cystitis Qualified Code(s): N30.01 - Acute cystitis with hematuria (4) HTN (hypertension): (5) Atrial fibrillation: (6) Diastolic heart failure: (7) Essential tremor: (8) Asthma: (9) Acute metabolic encephalopathy: Plan 82 year old female with past medical history of atrial fibrillation, heart failure with reduced ejection fraction, coronary artery disease, status post pacemaker, CKD stage III, COPD, came in today with chief complaint of worsening lethargy as well as shortness of breath. Assessment: Respiratory failure with hypoxia and hypercapnia: Likely secondary decompensated heart failure, possible underlying hospital-acquired pneumonia. CT chest without contrast: 2D Echo: Blood culture Sputum Gram stain and culture Urine Legionella antigen Bacterial antigen panel MRSA PCR Continue Lasix 40 I.V twice daily Currently on broad-spectrum antibiotic Vanco and meropenem Continue BiPAP Continue DuoNebs Supplemental oxygen as needed Possibly CKD versus ANI on CKD Admission serum creatinine is 1.9 Baseline serum creatinine appears to be around 1-1.6 Monitor BMP Avoid nephrotoxic's Monitor intake output charting. Acute on chronic decompensated heart failure with reduced ejection fraction: Plan is 1 History of COPD: Plan as 1 CODE STATUS:AND DVT prophylaxis: Attestations Medical Necessity Statement*: Patient is to be in hospital management respiratory failure.Anticipated length of stay greater than 2 midnights. Critical Care Time: The high probability of a clinically significant, sudden or life threatening deterioration of the patient's [] system(s) required my full and direct attention, intervention and personal management. The critical care time is as shown. This time is in addition to time spent performing any reported procedures but includes the following: [x] Data and vital sign review and interpretation [x] Patient assessment, examination and intervention [x] Documentation [x] Medication orders and management Critical Care Time (min): 35 Coding Level of Care Code Critical Care >/= 30 minutes Diagnoses Acute respiratory failure with hypoxia and hypercapnia J96.01; J96.02 Pneumonia J18.9 Laterality: right Lung location: lower lobe of lung Pneumonia type: due to unspecified organism Urinary tract infection N30.01 Hematuria presence: with hematuria Urinary tract infection type: acute cystitis HTN (hypertension) I10 Atrial fibrillation I48.91 Diastolic heart failure I50.30 Essential tremor G25.0 Asthma J45.909 Acute metabolic encephalopathy G93.41
--- NOTE | 2022-06-22 15:28 | USCV_ITS ---
Megan Das Age: 82 Gender: F : 1940 Exam Date: 06/22/2022 20:59 Ordering Phys: Abilio Maurer MD Technologist: MADELEINE Exam Location: [facility] [place] Indication: SOB, CHF, COPD. Patient is on BIPAP in ICU-11. BP: 99 / 70 HR: 82 Rhythm: Atrial fibrillation Technical Quality: Adequate MEASUREMENTS (Male / Female) Normal Values 2D ECHO LV Diastolic Diameter PLAX 3.4 cm 4.2 - 5.9 / 3.9 - 5.3 cm LV Systolic Diameter PLAX 2.5 cm IVS Diastolic Thickness 1.4 cm 0.6 - 1.0 / 0.6 - 0.9 cm IVS Systolic Thickness 1.7 cm LVPW Diastolic Thickness 1.1 cm 0.6 - 1.0 / 0.6 - 0.9 cm LVPW Systolic Thickness 1.3 cm LVOT Diameter 1.9 cm LV Ejection Fraction 2D Teich 53.4 % LV Ejection Fraction MOD 2C 43.1 % LV Ejection Fraction 2C AL 44.2 % LA Diameter 5.9 cm LA Width 5.0 cm LA Height 6.8 cm RA Width 6.4 cm RA Height 7.5 cm Aorta at Sinotubular Diameter 3.4 cm IVC Diameter 1.3 cm M-MODE Aortic Annulus Diameter 3.3 cm LA Ao Ratio MM 1.6 MV E Point Septal Separation 1.2 cm DOPPLER AV Peak Velocity 79.0 cm/s LVOT Peak Velocity 41.0 cm/s AV Area Cont Eq vti 1.7 cm squared AV Area Cont Eq pk 1.4 cm squared MV Peak Velocity 78.0 cm/s MV Area PHT 3.5 cm squared Mitral E to A Ratio 156.3 MV E' Velocity 35.0 cm/s Mitral E to MV E' Ratio 10.3 Mitral E to LV E' Lateral Ratio 7.9 Mitral E to LV E' Septal Ratio 14.5 TR Peak Velocity 235.5 cm/s TR Peak Gradient 22.2 mmHg TV Peak E Velocity 89.0 cm/s Right Atrial Pressure 15.0 mmHg Pulmonary Artery Systolic Pressu 37.2 mmHg PV Peak Velocity 78.0 cm/s RV Acceleration Time 0.0 s RV Ejection Time 0.3 s RV AcT/ET 0.1 FINDINGS Left Ventricle Normal left ventricular size and systolic function, EF 47 %. No regional wall motion abnormalities. Right Ventricle Catheter/pacemaker wire in the right ventricular cavity. Right Atrium Moderately increased right atrial size. Catheter/pacemaker wire in the right atrial appendage. Left Atrium Moderately increased left atrial size. Mitral Valve Thickened mitral valve. Mild mitral annular calcification. Mild mitral valve regurgitation. Aortic Valve Thickened aortic valve. Tricuspid Valve [id number] tricuspid valve regurgitation. Estimated pulmonary artery peak systolic pressure 37 mmHg Pulmonic Valve Trace pulmonary valve regurgitation. Pericardium No pericardial effusion. Aorta Normal aortic annulus size. IVC Normal inferior vena cava. CONCLUSIONS Normal left ventricular size and systolic function, EF 47 %. No regional wall motion abnormalities. Moderate biatrial enlargement. Possibly normal RV size and ejection fraction. Thickened mitral valve. Mild mitral annular calcification. Mild mitral valve regurgitation. Oygjsqmf-fz-ibomhy tricuspid valve regurgitation. Estimated pulmonary artery peak systolic pressure 37 mmHg. There is no pericardial effusion. There are no intracardiac masses. Pacemaker wire was noted in the right atrium and right ventricle Comparison with the previous study is difficult because of the difference in the technical quality. Dr Judy Chase MD [facility] (Electronically Signed) Final Date: 23 June 2022 14:15 S
--- NOTE | 2022-06-22 15:52 | PC.NURSE ---
DR. GUZMAN NOTIFIED OF PT BP 99/70. DR. GUZMAN GAVE VERBAL ORDER TO CONTINUE WITH LASIX ADMINISTRATION
--- NOTE | 2022-06-22 15:54 | PC.PHAR ---
PHARMACY TO DOSE CONSULT With the patient's current vitals and lab results, the vancomycin was calculated at 1500mg every 48 hours with a predicted peak of 36.1 mcg/ml and a trough of 11.15 mcg/ml. Trough labs will be entered by pharmacy. For the patient's Meropenem, the original order was for 500mg every 8 hours. With the patient's current CrCl, she was indicated for 250mg every 12 hours. As with all patients, we will continue to monitor her renal function and make adjustments as necessary. Please reach out if you have any further questions or if we can help in any way. Thanks, Anthony Sinha, Pharm.D
[2022-06-22] MEDS: FUROsemide 10 mg/mL SDV 4mL 40 MG IVP (16:41)
[2022-06-22] MEDS: vancomycin 1,500 MG/300 ML PIGGYBACK 200 MG IV (17:14)
[2022-06-22] MEDS: pantoprazole 40 mg SDV IVP (17:40)
[2022-06-22] MEDS: heparin 5,000 unit/mL INJ 1 mL 5000 UNIT SUBCUT (18:18)
[2022-06-22] MEDS: ipratropium-albuterol 3 mL Neb INHALATION (19:59)
[2022-06-22] MEDS: ropinirole 2 mg Tablet PO (21:44)
[2022-06-22] MEDS: multivitamin therapeutic Tablet 1 TAB PO (21:44)
[2022-06-23] VITALS (182 sets, daily range): BP systolic 76–132; BP diastolic 45–84; PULSE 80–87; RESP 15–30; TEMP 35.7–36.9; O2SAT 81–100; BMI 32.5
[2022-06-23] MEDS: ipratropium-albuterol 3 mL Neb INHALATION (02:58)
[2022-06-23 05:06] LABS: Basophils # 0.1 10^3/uL (0.0-0.1); Basophils % 1.3 %; Eosinophils # 0.2 10^3/uL (0.0-0.8); Eosinophils % 2.2 %; Hematocrit 28.6 % (37.0-47.0); Hemoglobin 8.5 g/dL (11.5-15.3); Lymphocytes # 1.5 10^3/uL (0.8-4.8); Lymphocytes % 22.5 %; Mean Corpuscular HGB Conc 29.7 g/dL (30.0-36.0); Mean Corpuscular Hemoglobin 29.3 pg (28.0-34.0); Mean Corpuscular Volume 98.6 fl (81-99); Mean Platelet Volume 12.2 fL (7.4-10.4); Monocytes # 0.5 10^3/uL (0.2-0.9); Monocytes % 7.4 %; Neutrophils # 4.48 10^3/uL (1.8-7.7); Neutrophils % 66.3 %; Nucleated Red Blood Cells % 0.6 %; Platelet Count 252 10^3/cmm (130-400); Red Cell Distribution Width 17.2 % (12.1-15.1); White Blood Count 6.8 10^3/uL (4.0-10.0)
[2022-06-23] MEDS: pantoprazole 40 mg SDV IVP ×2 (05:12→17:09)
[2022-06-23 05:43] LABS: Procalcitonin 0.16 ng/mL (0-0.5)
[2022-06-23] MEDS: sodium chloride 0.9% 250 ML IV (05:45)
[2022-06-23] MEDS: heparin 5,000 unit/mL INJ 1 mL 5000 UNIT SUBCUT ×2 (05:45→17:10)
[2022-06-23 05:54] LABS: Alanine Aminotransferase 14 U/L (0-33); Albumin Level 2.8 g/dL (3.5-5.2); Alkaline Phosphatase 110 U/L (35-105); Anion Gap 18.1 (5-19); Aspartate Amino Transferase 20 U/L (0-32); Blood Urea Nitrogen 27 mg/dL (8-23); Calcium 8.1 mg/dL (8.5-10.5); Carbon Dioxide 28 mmol/L (22-29); Chloride 95 mmol/L (98-107); Globulin 3.3 g/dL (1.3-4.6); Glucose 80 mg/dL (65-115); Magnesium 1.7 mg/dL (1.7-2.3); Osmolality Calculated 290 mOsm/kg (285-295); Potassium 3.1 mmol/L (3.5-5.1); Sodium 138 mmol/L (136-145); Total Bilirubin 0.7 mg/dL (0.15-1.2); Total Protein 6.1 g/dL (6.6-8.7)
--- NOTE | 2022-06-23 05:54 | PC.NURSE ---
Levophed was initiated on patient upon start of shift. Map has been held >65 on 2-4 mcg/min. Patient was hypothermic upon assessment and bear hugger applied. Temps steadily willem throughout shift. Morning dose of lasix held per hospitalist conversation. Patient presented dry with cracked lips, clear lungs, concentrated urine and decreasing pressures. Order received for 250ml bolus to see if patient is fluid responsive. Patient has rested comfortably throughout shift.
--- NOTE | 2022-06-23 07:57 | US_ITS ---
WS: [id number] EXAMINATION: [place] chest [id number] REASON FOR EXAM: large rt pleural effusion COMPARISON: 10/02/2021 ORDER DATE: 06/23/2022 8:47 AM TECHNIQUE: Ultrasound of the left lower chest is obtained. FINDINGS: There is a prominent but not measured right pleural effusion. There is a pleural fluid collection perhaps with some debris perhaps fibrin within. Fluid collection measures approximately 30 x 54 x 36 mm in outline within the subpulmonic compartment. US/US chest [id number] IMPRESSION: Prominent right effusion Small left pleural effusion The effusions are better visualized calibrated on recent CT imaging of the ches t dated 06/22/2022
[2022-06-23 08:57] LABS: INR 1.27 (0.8-1.2)
--- NOTE | 2022-06-23 09:00 | PC.RESP ---
svn tx not given due to albuterol allergy
[2022-06-23] MEDS: ferrous gluconate 324 mg Tablet PO (09:05)
[2022-06-23] MEDS: pregabalin 75 mg Capsule PO (09:05)
[2022-06-23] MEDS: sennosides 8.6 mg Tablet 17.2 MG PO (09:06)
[2022-06-23] MEDS: potassium chloride premix 100 ML 50 MEQ IV (09:07)
[2022-06-23] MEDS: lanolin oint 7 gm 1 APPLIC TOPICAL (09:07)
--- NOTE | 2022-06-23 10:45 | PM.CONSULT ---
Providers/Reason For Consult Consulting Physician/Specialty*: kommana/Nephrology Reason for Consult*: Acute on chronic kidney disease Attending Physician: Abilio Maurer MD Primary Care Provider: Neeraj Cardoza MD History of Present Illness History of Present Illness Patient is a 82-year-old female with past medical history of CHF , history of coronary artery disease, history of pacemaker, history of CKD stage III with baseline creatinine in the mid 1 range, hypertension presented to the emergency department due to difficulty breathing and lethargy. She was [facility] discharged from [facility] and had received blood transfusion as well as diuresis for CHF. In the ED vital signs are stable, chest x-ray has showed pulmonary vascular congestion, lab data significant for hemoglobin of 8.8 creatinine was 1.9. proBNP elevated at 2700. ABG showed pH of 7.2 with PCO2 of 78. Patient was started on IV Lasix 40 mg twice a day, with no adequate response. Review of Systems Narrative: . Medications/Allergies Home Medications Medication Instructions Recorded Confirmed Last Taken Type eszopiclone 2 mg tablet (Lunesta) 2 mg PO BEDTIME 05/16/19 06/22/22 06/21/22 History hydrocodone 5 mg-acetaminophen 325 1 tab PO BID PRN Pain 05/16/19 06/22/22 06/18/21 History mg tablet lubiprostone 24 mcg capsule 24 mcg PO BID 05/16/19 06/22/22 06/22/22 History (Amitiza) multivitamin 1 tab PO BEDTIME 05/16/19 06/22/22 06/22/22 History ropinirole 2 mg tablet 2 mg PO BEDTIME 10/11/20 06/22/22 06/21/22 History budesonide 160 mcg-glycopyr 9 2 inh inhalation BID 02/13/21 06/22/22 06/22/22 History mcg-formot 4.8 mcg/actuation HFA inhaler (Breztri Aerosphere) sennosides 8.6 mg tablet (senna) See Rx Instructions .Route .COMPLEX 06/18/21 06/22/22 06/22/22 History vit C 250 mg-vit E 90 mg-zinc 40 1 tab PO BID 06/18/21 06/22/22 06/22/22 History mg-copper 1 ri-glcndl-yrwrhl capsule (PreserVision AREDS-2) ferrous gluconate 324 mg (38 mg 324 mg PO DAILY 08/01/21 06/22/22 06/22/22 History iron) tablet nystatin 100,000 unit/mL oral 100,000 unit PO BID 08/01/21 06/22/22 10/01/21 History suspension furosemide 40 mg tablet 40 mg PO DAILY 01/19/22 06/22/22 06/22/22 History metoprolol succinate 25 mg 25 mg PO DAILY #90 tabs 03/10/22 06/22/22 06/21/22 Rx tablet,extended release 24 hr guaifenesin 100 mg/5 mL oral 200 mg (10 mL) PO Q4H PRN cough 03/26/22 06/22/22 Unknown Rx liquid (Mucinex Fast-Max Chest #473 mL Congestion) levalbuterol tartrate 45 2 inh inhalation Q6H #15 grams 03/26/22 06/22/22 06/22/22 Rx mcg/actuation aerosol inhaler (Xopenex HFA) lansoprazole 30 mg capsule,delayed 30 mg PO BID #180 caps 03/30/22 06/22/22 06/22/22 Rx release (Prevacid) montelukast 10 mg tablet 10 mg PO DAILY #30 tabs 06/02/22 06/22/22 06/21/22 Rx (Singulair) ipratropium bromide 21 mcg (0.03 2 spray intranasal TID PRN NASAL 06/22/22 06/22/22 Unknown History %) nasal spray DRAINAGE pregabalin 75 mg capsule (Lyrica) 75 mg PO DAILY 06/22/22 06/22/22 06/22/22 History propranolol 20 mg tablet 20 mg PO QAM 06/22/22 06/22/22 06/22/22 History Allergies Allergy/AdvReac Type Severity Reaction Status Date / Time atropine Allergy Unknown Unknown Verified 05/07/22 15:26 benztropine Allergy Unknown Unknown Verified 05/07/22 15:26 cefadroxil Allergy Unknown Unknown Verified 05/07/22 15:26 cimetidine Allergy Unknown Unknown Verified 05/07/22 15:26 enalapril Allergy Unknown Unknown Verified 05/07/22 15:26 enalaprilat Allergy Unknown Unknown Verified 05/07/22 15:26 gabapentin Allergy Unknown Unknown Verified 05/07/22 15:26 Sulfa (Sulfonamide Allergy Unknown Unknown Verified 05/07/22 15:26 Antibiotics) tramadol Allergy Unknown ADR-Itching Verified 05/07/22 15:26 zolpidem Allergy Unknown Unknown Verified 05/07/22 15:26 albuterol Allergy Yaron Verified 06/22/22 10:44 Lip/Tongue/Throat Current Medications Generic Name Dose Route Start Last Admin Trade Name Freq PRN Reason Stop Dose Admin Albuterol/Ipratropium 3 ml 06/22/22 20:00 06/23/22 08:56 Ipratropium-Albuterol 3 Ml Neb INHALATION Not Given Q6H.RESP KACEY Ferrous Gluconate 324 mg 06/23/22 09:00 06/23/22 09:05 Ferrous Gluconate 324 Mg Tablet PO 324 mg DAILY KACEY Administration Furosemide 40 mg 06/22/22 15:30 06/23/22 05:23 Furosemide 10 Mg/Ml Sdv 4ml IVP Not Given Q12H KACEY Heparin Sodium (Porcine) 5,000 unit 06/22/22 18:15 06/23/22 05:45 Heparin 5,000 Unit/Ml Inj 1 Ml SUBCUT 5,000 unit Q12H KACEY Administration Meropenem 250 mg/ Sodium 50 mls @ 100 mls/hr 06/22/22 17:00 06/23/22 05:16 Chloride IV 100 mls/hr Q12H KACEY Administration Protocol Norepinephrine Bitartrate 4 mg 254 mls @ 0 mls/hr 06/22/22 18:30 06/23/22 10:41 / Dextrose IV 0 mcg/min .Q0M KACEY 0 mls/hr Titration Protocol Per Protocol Lanolin 1 applic 06/23/22 08:58 06/23/22 09:07 Lanolin Oint 7 Gm TOPICAL 1 applic PRN PRN Administration DRYNESS Multivitamins Therapeutic 1 tab 06/22/22 21:00 06/22/22 21:44 Multivitamin Therapeutic Tablet PO 1 tab BEDTIME KACEY Administration Non-Formulary Medication 2 mg 06/22/22 21:00 06/22/22 21:40 Eszopiclone [Lunesta] PO Not Given BEDTIME KACEY Non-Formulary Medication 24 mcg 06/22/22 18:00 06/23/22 09:06 Lubiprostone [Amitiza] PO Not Given BID KACEY Pantoprazole Sodium 40 mg 06/22/22 18:00 06/23/22 05:12 Pantoprazole 40 Mg Sdv IVP 40 mg Q12H KACEY Administration Pregabalin 75 mg 06/23/22 09:00 06/23/22 09:05 Pregabalin 75 Mg Capsule PO 75 mg DAILY KACEY Administration Ropinirole HCl 2 mg 06/22/22 21:00 06/22/22 21:44 Ropinirole 2 Mg Tablet PO 2 mg BEDTIME KACEY Administration Senna 17.2 mg 06/23/22 06:00 06/23/22 09:06 Sennosides 8.6 Mg Tablet PO 17.2 mg QAM KACEY Administration Senna 8.6 mg 06/22/22 18:00 06/22/22 17:14 Sennosides 8.6 Mg Tablet PO Not Given QPM KACEY PFSH Acute PFSH: Medical History (Updated 06/23/22 @ 10:54 by Sonam Fritz MD) Acute kidney injury superimposed on CKD Atrial fibrillation CAD (coronary artery disease) Dehydration Diastolic heart failure GERD (gastroesophageal reflux disease) HTN (hypertension) Iron deficiency anemia Left ankle swelling Myoclonus Osteoarthritis Pacemaker Pacemaker syndrome Pleural effusion Varicose veins of left lower extremity with other complications Surgical History Previous back surgery S/P cardiac pacemaker procedure S/P cataract extraction S/P hysterectomy S/P tubal ligation Family History Father , [place] age 44 Myocardial infarction Social History Smoking and tobacco status: never smoked Vitals/I&O/Wt Last Vital Signs Temp 97.0 F L 06/23/22 07:20 Pulse 80 06/23/22 08:56 Resp 17 06/23/22 08:56 BP 99/53 06/23/22 08:05 Pulse Ox 98 06/23/22 08:56 O2 Del Method 06/23/22 08:56 O2 Flow Rate 1 06/23/22 08:56 FiO2 21 06/23/22 08:00 06/22/22 06/23/22 06/23/22 22:59 06:59 14:59 Intake Total 560.414 / 560.414 112.205 / 672.619 59.563 / 59.563 Output Total 175 / 175 175 / 175 Balance 560.414 / 560.414 -62.795 / 497.619 -115.437 / -115.437 Weight last 48 hrs Weight 88.904 kg Weight 83.915 kg Physical Exam Narrative: Patient awake alert, hard of hearing, no acute distress PERRLA S1-S2 per report Decreased breath sounds bilaterally at bases per report + pedal edema Urinary Catheter Management: Weber: Cath Placed During This Visit: yes Reason for Continuing Indwelling Catheter: Accurate Measurement of Urinary Output in Critically Ill Patients Urinary Catheter Date of Insertion: 06/22/22 Urinary Catheter Time of Insertion: 16:53 Data 06/23/22 04:29 06/23/22 04:29 Micro: Microbiology 06/22/22 16:56 Legionella Urinary Antigen - Final Urine Catheterized 06/22/22 12:40 Blood Culture - Preliminary Blood SPECIMEN COLLECTED 06/22/22 12:35 Blood Culture - Preliminary Blood SPECIMEN COLLECTED A&P Assessment and plan (1) Acute kidney injury superimposed on CKD: Plan 1. Acute on chronic kidney disease stage III: Baseline creatinine in the mid 1 range now creatinine up to 2.0. Oliguric. Has volume overload but not responded to diuretics adequately. -We will add IV albumin and give Lasix 30 minutes. Abdomen infusion. -We will check urine electrolytes, renal ultrasound. -2 g sodium restriction and 1500 mill fluid restriction. -Avoid nephrotoxins and IV contrast studies. -Patient sees fish roe processor as outpatient in [place] 2. Acute on chronic respiratory failure: Multifactorial, secondary to hypercapnia, CHF 3. Hypokalemia: Mild potassium 3.1 today, will replete. 4. Hypertension: Blood pressure borderline low 5. Anemia: We will give a dose of Epogen Patient evaluated using audiovisual cart. Time spent 40 minutes Consult Attestations Medical Necessity Statement: Per Internal Medicine team. Coding Level of Care Code Acute Code for Chg Fwd Diagnoses Acute kidney injury superimposed on CKD N17.9; N18.9
--- NOTE | 2022-06-23 10:55 | US_ITS ---
WS: [id number] ULTRASOUND RENAL TECHNIQUE: Ultrasound examination of both kidneys. CLINICAL INFORMATION: ANI COMPARISON: None. FINDINGS: Kidneys not able to be visualized due to patient condition. US/US renal BI* [id number] IMPRESSION: Unable to image kidneys due to patient condition
[2022-06-23] MEDS: epoetin alfa 1000 Unit/0.05 mL (non-esrd) 20000 UNIT SUBCUT (13:03)
[2022-06-23] MEDS: albumin 25 G/100 ML BAG 60 G IV ×2 (13:16→18:37)
--- NOTE | 2022-06-23 14:34 | PM.PN ---
Subjective Subjective: Patient was seen and examined this morning, currently she is much more alert awake oriented, was on BiPAP last night has been transitioned to nasal cannula, currently Levophed is being titrated off. Has been hypothermic overnight, requiring the use of Kulawnt hugger. Medications: Medication Review Details: Generic Name Dose Route Start Last Admin Trade Name Freq PRN Reason Stop Dose Admin Acetylcysteine 200 mg 06/23/22 14:00 06/23/22 14:32 Acetylcysteine 2 00 Mg/Ml Mdv 10 Ml INHALATION Not Given Q6H.RESP KACEY Albuterol/Ipratrop ium 3 ml 06/22/22 20:00 06/23/22 14:33 Ipratropium-Albu terol 3 Ml Neb INHALATION Not Given Q6H.RESP KACEY Ferrous Gluconate 324 mg 06/23/22 09:00 06/23/22 09:05 Ferrous Gluconat e 324 Mg Tablet PO 324 mg DAILY KACEY Administration Furosemide 40 mg 06/22/22 15:30 06/23/22 05:23 Furosemide 10 Mg /Ml Sdv 4ml IVP Not Given Q12H KACEY Heparin Sodium (Po rcine) 5,000 unit 06/22/22 18:15 06/23/22 05:45 Heparin 5,000 Un it/Ml Inj 1 Ml SUBCUT 5,000 unit Q12H KACEY Administration Meropenem 250 mg/ Sodium 50 mls @ 100 mls/ hr 06/22/22 17:00 06/23/22 05:16 Chloride IV 100 mls/hr Q12H KACEY Administration Protocol Norepinephrine Bit artrate 4 mg 254 mls @ 0 mls/h r 06/22/22 18:30 06/23/22 10:41 / Dextrose IV 0 mcg/min .Q0M KACEY 0 mls/hr Titration Protocol Per Protocol Albumin Human 25 g in 100 mls @ 60 mls/hr 06/23/22 11:00 06/23/22 13:16 Albumin IV 06/25/22 06:00 60 mls/hr Q8H KACEY Administration Lanolin 1 applic 06/23/22 08:58 06/23/22 09:07 Lanolin Oint 7 G m TOPICAL 1 applic PRN PRN Administration DRYNESS Multivitamins Ther apeutic 1 tab 06/22/22 21:00 06/22/22 21:44 Multivitamin The rapeutic Tablet PO 1 tab BEDTIME KACEY Administration Non-Formulary Medi cation 2 mg 06/22/22 21:00 06/22/22 21:40 Eszopiclone [Ant esta] PO Not Given BEDTIME KACEY Non-Formulary Medi cation 24 mcg 06/22/22 18:00 06/23/22 09:06 Lubiprostone [Am itiza] PO Not Given BID KACEY Pantoprazole Sodiu m 40 mg 06/22/22 18:00 06/23/22 05:12 Pantoprazole 40 Mg Sdv IVP 40 mg Q12H KACEY Administration Pregabalin 75 mg 06/23/22 09:00 06/23/22 09:05 Pregabalin 75 Mg Capsule PO 75 mg DAILY KACEY Administration Ropinirole HCl 2 mg 06/22/22 21:00 06/22/22 21:44 Ropinirole 2 Mg Tablet PO 2 mg BEDTIME KACEY Administration Senna 17.2 mg 06/23/22 06:00 06/23/22 09:06 Sennosides 8.6 M g Tablet PO 17.2 mg QAM KACEY Administration Senna 8.6 mg 06/22/22 18:00 06/22/22 17:14 Sennosides 8.6 M g Tablet PO Not Given QPM KACEY Vitals/I&O/Wt Last Vital Signs Temp 98.4 F 06/23/22 12:00 Pulse 80 06/23/22 12:00 Resp 17 06/23/22 12:00 BP 99/53 06/23/22 08:05 Pulse Ox 98 06/23/22 08:56 O2 Del Method 06/23/22 08:56 O2 Flow Rate 1 06/23/22 08:56 FiO2 21 06/23/22 12:00 06/22/22 06/23/22 06/23/22 22:59 06:59 14:59 Intake Total 560.414 / 560.414 112.205 / 672.619 59.563 / 59.563 Output Total 175 / 175 175 / 175 Balance 560.414 / 560.414 -62.795 / 497.619 -115.437 / -115.437 Weight last 48 hrs Weight 88.904 kg Weight 83.915 kg Physical Exam Narrative: Currently she is alert awake, holding decent conversations. HENMT: COMMON NORMALS: normocephalic and atraumatic HEAD & SCALP: normocephalic and atraumatic Resp: OTHER: Diminished air entry bilaterally Cardio: COMMON NORMALS: regular rate, regular rhythm, S1 normal heart sound present, S2 normal heart sound present, No gallops present (Cardio), No murmurs present (Cardio), No rub (Cardio) and Peripheral pulses 2+ throughout RATE: regular rate RHYTHM: regular rhythm HEART SOUNDS: S1 normal heart sound present and S2 normal heart sound present PERIPHERAL PULSES: Peripheral pulses 2+ throughout GI: COMMON NORMALS: Normal to inspection, nondistended, normoactive bowel sounds present, Soft to palpation, non-tender, No hepatosplenomegaly present and no masses AUSCULTATION: Yes normoactive bowel sounds PALPATION: Yes Soft to palpation and Yes No hepatosplenomegaly present RECTAL EXAM: deferred Extremity: COMMON NORMALS: no clubbing, cyanosis or edema and no pedal edema Urinary Catheter Management: Weber: Cath Placed During This Visit: yes Reason for Continuing Indwelling Catheter: Accurate Measurement of Urinary Output in Critically Ill Patients Urinary Catheter Date of Insertion: 06/22/22 Urinary Catheter Time of Insertion: 16:53 Data 06/23/22 04:29 06/23/22 04:29 Micro: Microbiology 06/22/22 16:59 MRSA Culture - Final Nose 06/22/22 12:40 Blood Culture - Preliminary Blood NEGATIVE TO DATE 06/22/22 12:35 Blood Culture - Preliminary Blood NEGATIVE TO DATE 06/22/22 16:56 Bacterial Antigens - Final Urine,Voided 06/22/22 16:56 Legionella Urinary Antigen - Final Urine Catheterized A&P Assessment and plan (1) Acute respiratory failure with hypoxia and hypercapnia: (2) Pneumonia: Qualifiers: Laterality: right Lung location: lower lobe of lung Pneumonia type: due to unspecified organism Qualified Code(s): J18.9 - Pneumonia, unspecified organism (3) Urinary tract infection: Qualifiers: Hematuria presence: with hematuria Urinary tract infection type: acute cystitis Qualified Code(s): N30.01 - Acute cystitis with hematuria (4) HTN (hypertension): (5) Atrial fibrillation: (6) Diastolic heart failure: (7) Essential tremor: (8) Asthma: (9) Acute metabolic encephalopathy: (10) Hypokalemia: (11) Sepsis: Plan 82 year old female with past medical history of atrial fibrillation, heart failure with reduced ejection fraction, coronary artery disease, status post pacemaker, CKD stage III, COPD, came in today with chief complaint of worsening lethargy as well as shortness of breath. Assessment: Respiratory failure with hypoxia and hypercapnia: Likely secondary decompensated heart failure, possible underlying hospital-acquired pneumonia. CT chest without contrast:Bilateral right greater than left lower lobe airspace infiltrates,Large right and small left pleural effusions.Ascites in the upper abdomen. 2D Echo: Normal left ventricular size and systolic function, EF 47 %. No ?regional wall motion abnormalities. ?Moderate biatrial enlargement.?Possibly normal RV size and ejection fraction.?Thickened mitral valve. Mild mitral annular calcification. Mild?mitral valve regurgitation.?[id number]-[id number] tricuspid valve regurgitation.?Estimated pulmonary artery peak systolic pressure 37 mmHg. There is no pericardial effusion. Ultrasound chest: Prominent right effusion,Small left pleural effusion. Blood culture: Sputum Gram stain and culture Urine Legionella antigen: Negative Bacterial antigen panel: Negative MRSA PCR: Negative Continue Lasix 40 I.V twice daily Currently on broad-spectrum antibiotic Vanco and meropenem Continue BiPAP Continue DuoNebs Supplemental oxygen as needed. Pulmonary medicine on board Possibly CKD versus ANI on CKD Admission serum creatinine is 1.9 Baseline serum creatinine appears to be around 1-1.6 Monitor BMP Avoid nephrotoxic's Monitor intake output charting. Nephrology on board Sepsis possibly secondary to pneumonia/ UTI: Patient currently meets sepsis criteria as she is hypothermic, has required transient vasopressor support in the form of Levophed. IV fluid bolus was avoided in the presence of decompensated heart failure. Plan as 1 Acute on chronic decompensated heart failure with reduced ejection fraction: Plan is 1 History of COPD: Plan as 1 Acute metabolic encephalopathy: Secondary to hypercapnic respiratory failure, UTI. CT head without contrast no acute intracranial pathology. Continue to monitor mentation Continue BiPAP continue antibiotics UTI: Follow urine culture Currently appropriately covered with broad-spectrum antibiotics Hypokalemia: Monitor and replace serum potassium. CODE STATUS:AND DVT prophylaxis: Attestations Medical Necessity Statement*: Needs to be in hospital for management of pneumonia. Coding Level of Care Code Acute Code for [facility] Diagnoses Acute respiratory failure with hypoxia and hypercapnia J96.01; J96.02 Pneumonia J18.9 Laterality: right Lung location: lower lobe of lung Pneumonia type: due to unspecified organism Urinary tract infection N30.01 Hematuria presence: with hematuria Urinary tract infection type: acute cystitis HTN (hypertension) I10 Atrial fibrillation I48.91 Diastolic heart failure I50.30 Essential tremor G25.0 Asthma J45.909 Acute metabolic encephalopathy G93.41 Hypokalemia E87.6 Sepsis A41.9
[2022-06-23] MEDS: FUROsemide 10 mg/mL SDV 4mL 40 MG IVP (17:09)
--- NOTE | 2022-06-23 17:40 | P.CONIM_ITS ---
Providers/Reason For Consult Consulting Physician/Specialty*: Janes Evans MD/pulmonary critical care Reason for Consult*: Hypercapnic respiratory failure Requesting Physician: Abilio Maurer MD Attending Physician: Abilio Maurer MD Primary Care Provider: Neeraj Cardoza MD History of Present Illness History of Present Illness She Megan Das is a 82 year old female with past medical history of atrial fibrillation heart failure with reduced ejection fraction, CAD, s/p pacemaker, CKD stage III admitted for hypercapnic respiratory failure. She was found to be drowsy by family and brought to ER. She was recently discharged from [facility] after 1 week hospitalization-and she was treated for severe CHF, anemia and received 2 units of PRBC. On admission CT head did not show any acute intracranial pathology. Chest x-ray showed irregular Interlobular septal thickening and some early alveolar component opacities in the upper lobes consistent with pulmonary vascular congestion. Increasing right basilar opacity from worsening of atelectasis/pneumonia and right pleural effusion noted. Postobstructive or aspiration process should be excluded. ABG showed pH 7.25 PCO2 78 which has improved to pH 7.39 and PCO2 55 after placing on BiPAP. She was requiring 2 L of nasal cannula She had a CT chest as well which showed bilateral right greater than left lower airspace of infiltrates. There is also bilateral pleural effusions. Cardiomegaly and ascites in the upper abdomen. She is having acute on chronic renal failure-with decreasing urine output- nephrology consulted and started adjusting her diuretics. She made only 100 cc urine today morning. Currently requiring low-dose Levophed as well. She is currently covered with renally adjusted vancomycin dose as well as meropenem. Her MRSA nares negative urine bacterial and Legionella antigen are negative. Blood cultures negative so far. She had a thoracic ultrasound by radiology and they mentioned there is prominent right pleural effusion. Pulmonary consulted for hypercapnic respiratory failure as well as pleural effusions. I have known Ms. Guzman as an outpatient. Her last visit to pulmonary clinic was in March 2022. I have seen her first time in August 2021 as a ED discharge follow-up with suspected mucous plugging in multiple segmental bronchi in the right lower lobe. Even at that time there was suspicion of large right pleural effusion. At that time she was transferred to [facility] and stayed for 4 days for recurrent right pleural effusion. She was treated for pneumonia and given Lasix. I did bedside ultrasound examination in the clinic which showed small right pleural effusion but right hemidiaphragm was significantly elevated. She was managed conservatively for mucus clearance with Acapella, chest vest and subsequent visits she reported improvement in her breathing. She was also using Breztri as outpatient and DuoNeb 2 times per week. I did had a fernanda conversation with patient on multiple occasions in the clinic about pursuing for bronchoscopic evaluation of airways to check for any endobronchial obstruction and if we find any lesions she needs biopsies, however as outpatient he refused any invasive procedures. She had a modified barium swallow test in October 2021 which showed weak oral and hypopharynx pharyngeal function and poor esophageal motility in the upper one third. Speech therapist was visiting her at home at that time. With significant issues with swallowing and esophageal dysphagia-I suspected chronic aspiration causing endobronchial mucosal edema in right lower lobe subsegments a nd causing right lower lobe atelectasis with some right pleural effusion and hemidiaphragm elevation. Today I have seen Ms. Guzman in ICU bed 11. She appears very weak. Reported she has difficulty breathing and feeling drowsy prior to coming to the hospital but now she feels a little bit more awake and able to have conversation She was willing to go for bronchoscopic evaluation while in the hospital to obtain BAL as well as clearance of mucus secretions Review of Systems General: Reports: 10 or more systems reviewed and unremarkable except in HPI and below Medications/Allergies Home Medications Medication Instructions Recorded Confirmed Last Taken Type eszopiclone 2 mg tablet (Lunesta) 2 mg PO BEDTIME 05/16/19 06/22/22 06/21/22 History hydrocodone 5 mg-acetaminophen 325 1 tab PO BID PRN Pain 05/16/19 06/22/22 06/18/21 History mg tablet lubiprostone 24 mcg capsule 24 mcg PO BID 05/16/19 06/22/22 06/22/22 History (Amitiza) multivitamin 1 tab PO BEDTIME 05/16/19 06/22/22 06/22/22 History ropinirole 2 mg tablet 2 mg PO BEDTIME 10/11/20 06/22/22 06/21/22 History budesonide 160 mcg-glycopyr 9 2 inh inhalation BID 02/13/21 06/22/22 06/22/22 History mcg-formot 4.8 mcg/actuation HFA inhaler (Breztri Aerosphere) sennosides 8.6 mg tablet (senna) See Rx Instructions .Route .COMPLEX 06/18/21 06/22/22 06/22/22 History vit C 250 mg-vit E 90 mg-zinc 40 1 tab PO BID 06/18/21 06/22/22 06/22/22 History mg-copper 1 [id number] capsule (PreserVision AREDS-2) ferrous gluconate 324 mg (38 mg 324 mg PO DAILY 08/01/21 06/22/22 06/22/22 History iron) tablet nystatin 100,000 unit/mL oral 100,000 unit PO BID 08/01/21 06/22/22 10/01/21 History suspension furosemide 40 mg tablet 40 mg PO DAILY 01/19/22 06/22/22 06/22/22 History metoprolol succinate 25 mg 25 mg PO DAILY #90 tabs 03/10/22 06/22/22 06/21/22 Rx tablet,extended release 24 hr guaifenesin 100 mg/5 mL oral 200 mg (10 mL) PO Q4H PRN cough 03/26/22 06/22/22 Unknown Rx liquid (Mucinex Fast-Max Chest #473 mL Congestion) levalbuterol tartrate 45 2 inh inhalation Q6H #15 grams 03/26/22 06/22/22 06/22/22 Rx mcg/actuation aerosol inhaler (Xopenex HFA) lansoprazole 30 mg capsule,delayed 30 mg PO BID #180 caps 03/30/22 06/22/22 06/22/22 Rx release (Prevacid) montelukast 10 mg tablet 10 mg PO DAILY #30 tabs 06/02/22 06/22/22 06/21/22 Rx (Singulair) ipratropium bromide 21 mcg (0.03 2 spray intranasal TID PRN NASAL 06/22/22 06/22/22 Unknown History %) nasal spray DRAINAGE pregabalin 75 mg capsule (Lyrica) 75 mg PO DAILY 06/22/22 06/22/22 06/22/22 History propranolol 20 mg tablet 20 mg PO QAM 06/22/22 06/22/22 06/22/22 History Allergies Allergy/AdvReac Type Severity Reaction Status Date / Time atropine Allergy Unknown Unknown Verified 05/07/22 15:26 benztropine Allergy Unknown Unknown Verified 05/07/22 15:26 cefadroxil Allergy Unknown Unknown Verified 05/07/22 15:26 cimetidine Allergy Unknown Unknown Verified 05/07/22 15:26 enalapril Allergy Unknown Unknown Verified 05/07/22 15:26 enalaprilat Allergy Unknown Unknown Verified 05/07/22 15:26 gabapentin Allergy Unknown Unknown Verified 05/07/22 15:26 Sulfa (Sulfonamide Allergy Unknown Unknown Verified 05/07/22 15:26 Antibiotics) tramadol Allergy Unknown ADR-Itching Verified 05/07/22 15:26 zolpidem Allergy Unknown Unknown Verified 05/07/22 15:26 albuterol Allergy ALGY-Swell Verified 06/22/22 10:44 Lip/Tongue/Throat Current Medications Generic Name Dose Route Start Last Admin Trade Name Freq PRN Reason Stop Dose Admin Acetylcysteine 200 mg 06/23/22 14:00 06/23/22 14:32 Acetylcysteine 200 Mg/Ml Mdv 10 Ml INHALATION Not Given Q6H.RESP KACEY Albuterol/Ipratropium 3 ml 06/22/22 20:00 06/23/22 14:33 Ipratropium-Albuterol 3 Ml Neb INHALATION Not Given Q6H.RESP KACEY Ferrous Gluconate 324 mg 06/23/22 09:00 06/23/22 09:05 Ferrous Gluconate 324 Mg Tablet PO 324 mg DAILY KACEY Administration Furosemide 40 mg 06/22/22 15:30 06/23/22 17:09 Furosemide 10 Mg/Ml Sdv 4ml IVP 40 mg Q12H KACEY Administration Heparin Sodium (Porcine) 5,000 unit 06/22/22 18:15 06/23/22 17:10 Heparin 5,000 Unit/Ml Inj 1 Ml SUBCUT 5,000 unit Q12H KACEY Administration Meropenem 250 mg/ Sodium 50 mls @ 100 mls/hr 06/22/22 17:00 06/23/22 17:26 Chloride IV 100 mls/hr Q12H KACEY Administration Protocol Norepinephrine Bitartrate 4 mg 254 mls @ 0 mls/hr 06/22/22 18:30 06/23/22 10:41 / Dextrose IV 0 mcg/min .Q0M KACEY 0 mls/hr Titration Protocol Per Protocol Albumin Human 25 g in 100 mls @ 60 mls/hr 06/23/22 11:00 06/23/22 17:10 Albumin IV 06/25/22 06:00 Infused Q8H KACEY Infusion Lanolin 1 applic 06/23/22 08:58 06/23/22 09:07 Lanolin Oint 7 Gm TOPICAL 1 applic PRN PRN Administration DRYNESS Multivitamins Therapeutic 1 tab 06/22/22 21:00 06/22/22 21:44 Multivitamin Therapeutic Tablet PO 1 tab BEDTIME KACEY Administration Non-Formulary Medication 2 mg 06/22/22 21:00 06/22/22 21:40 Eszopiclone [Lunesta] PO Not Given BEDTIME KACEY Non-Formulary Medication 24 mcg 06/22/22 18:00 06/23/22 17:10 Lubiprostone [Amitiza] PO Not Given BID KACEY Pantoprazole Sodium 40 mg 06/22/22 18:00 06/23/22 17:09 Pantoprazole 40 Mg Sdv IVP 40 mg Q12H KACEY Administration Pregabalin 75 mg 06/23/22 09:00 06/23/22 09:05 Pregabalin 75 Mg Capsule PO 75 mg DAILY KACEY Administration Ropinirole HCl 2 mg 06/22/22 21:00 06/22/22 21:44 Ropinirole 2 Mg Tablet PO 2 mg BEDTIME KACEY Administration Senna 17.2 mg 06/23/22 06:00 06/23/22 09:06 Sennosides 8.6 Mg Tablet PO 17.2 mg QAM KACEY Administration Senna 8.6 mg 06/22/22 18:00 06/23/22 17:13 Sennosides 8.6 Mg Tablet PO Not Given QPM KACEY PFSH Acute PFSH: Medical History Acute kidney injury superimposed on CKD Atrial fibrillation CAD (coronary artery disease) Dehydration Diastolic heart failure GERD (gastroesophageal reflux disease) HTN (hypertension) Iron deficiency anemia Left ankle swelling Myoclonus Osteoarthritis Pacemaker Pacemaker syndrome Pleural effusion Varicose veins of left lower extremity with other complications Surgical History Previous back surgery S/P cardiac pacemaker procedure S/P cataract extraction S/P hysterectomy S/P tubal ligation Family History Father , [place] age 44 Myocardial infarction Social History Smoking and tobacco status: never smoked Vitals/I&O/Wt Last Vital Signs Temp 98.4 F 06/23/22 12:00 Pulse 80 06/23/22 16:00 Resp 20 H 06/23/22 14:34 BP 115/71 06/23/22 16:00 Pulse Ox 96 06/23/22 14:36 O2 Del Method 06/23/22 14:34 O2 Flow Rate 1 06/23/22 08:56 FiO2 21 06/23/22 16:00 06/23/22 06/23/22 06/23/22 06:59 14:59 22:59 Intake Total 162.205 / 722.619 59.563 / 59.563 100 / 159.563 Output Total 175 / 175 175 / 175 Balance -12.795 / 547.619 -115.437 / -115.437 100 / -15.437 Weight last 48 hrs Weight 196 lb Weight 185 lb Physical Exam Narrative: General: alert, in mild respiratory distress, elderly patient HEENT: conj clear, EOMI, PERRL, mmm, Neck: supple, no meningismus Heme: no cervical LAP Respiratory: Inspection: No visible deformity of the chest wall Palpation: Trachea is mildly deviated to the right, bilateral symmetric expansion Percussion: Bilateral tympanic percussion note both anterior and posteriorly Auscultation: Bilateral clear to auscultation both anterior and posteriorly, no crackles wheezing or rhonchi; reduced breath sounds right lower lung zone Cardiovascular: rrr, nl s1s2, no mrg Abdomen: soft, nt, nd, no r/g, bs+ Extremities: pulses +, no edema, no c/c : no CVA tenderness Skin: intact, no rash MSK: no back or neck pain Neurologic: grossly intact Urinary Catheter Management: Weber: Cath Placed During This Visit: yes Reason for Continuing Indwelling Catheter: Accurate Measurement of Urinary Output in Critically Ill Patients Urinary Catheter Date of Insertion: 06/22/22 Urinary Catheter Time of Insertion: 16:53 Data 06/24/22 02:13 06/24/22 02:13 Other Labs: Radiology Impressions Chest X-Ray 06/22/22 11:03 IMPRESSION: Slight worsening of right basilar opacity as described above. Due to increasing atelectasis and consolidation with effusion. Developing pulmonary vascular congestion Cardiomegaly unchanged Head CT 06/22/22 11:40 IMPRESSION: 1. No evidence of intracranial hemorrhage or mass effect. 2. Mild small vessel changes. Mild parenchymal volume loss. 3. Vascular calcification. 4. No acute intracranial findings. Chest CT 06/22/22 15:21 IMPRESSION: 1. Bilateral right greater than left lower lobe airspace infiltrates. 2. Ascending thoracic aorta dilated to 4.7 cm. 3. Cardiomegaly. 4. Coronary artery atherosclerotic calcifications. 5. Large right and small left pleural effusions. 6. Ascites in the upper abdomen. 7. Right kidney cyst, negative for follow-up advised. COMMENTS: Consistent with the [employer]'s Incidental Findings Committee white paper (J Am Lucinda Radiol 2018): Any incidental renal lesion less than 1 cm or classified as too small to characterize, or any incidental cystic renal lesion characterized as simple-appearing, is likely benign. No follow-up imaging is recommended for these lesions per consensus recommendations based on imaging criteria. Chest Ultrasound 06/23/22 07:57 IMPRESSION: Prominent right effusion Small left pleural effusion The effusions are better visualized calibrated on recent CT imaging of the chest dated 06/22/2022 Renal Ultrasound 06/23/22 10:55 IMPRESSION: Unable to image kidneys due to patient condition Laboratory Results WBC 5.5 10^3/uL (4.0-10.0) 06/24/22 02:13 RBC 2.76 10^6/uL (4.1-5.3) L 06/24/22 02:13 Hgb 8.0 g/dL (11.5-15.3) L 06/24/22 02:13 Hct 26.9 % (37.0-47.0) L 06/24/22 02:13 MCV 97.5 fl (81-99) 06/24/22 02:13 MCH 29.0 pg (28.0-34.0) 06/24/22 02:13 MCHC 29.7 g/dL (30.0-36.0) L 06/24/22 02:13 RDW 17.3 % (12.1-15.1) H 06/24/22 02:13 Plt Count 193 10^3/cmm (130-400) 06/24/22 02:13 MPV 11.9 fL (7.4-10.4) H 06/24/22 02:13 Neut % (Auto) 58.4 % 06/24/22 02:13 Lymph % (Auto) 28.0 % 06/24/22 02:13 [place] % (Auto) 9.9 % 06/24/22 02:13 Eos % (Auto) 2.0 % 06/24/22 02:13 Baso % (Auto) 1.3 % 06/24/22 02:13 Neut # (Auto) 3.24 10^3/uL (1.8-7.7) 06/24/22 02:13 Lymph # (Auto) 1.6 10^3/uL (0.8-4.8) 06/24/22 02:13 [place] # (Auto) 0.6 10^3/uL (0.2-0.9) 06/24/22 02:13 Eos # (Auto) 0.1 10^3/uL (0.0-0.8) 06/24/22 02:13 Baso # (Auto) 0.1 10^3/uL (0.0-0.1) 06/24/22 02:13 Nucleated RBC % (auto) 0.5 % 06/24/22 02:13 Nucleated RBCs # 0.0 /100WBC 06/24/22 02:13 PT 16.30 SECONDS (12.1-14.9) H 06/23/22 08:24 INR 1.27 (0.8-1.2) H 06/23/22 08:24 Specimen Type Arterial 06/22/22 15:09 Sample Site Brachial, left 06/22/22 15:09 ABG pH 7.39 (7.35-7.45) 06/22/22 15:09 ABG pCO2 55.9 mmHg (35-45) H 06/22/22 15:09 ABG pO2 92.1 mmHg (80.0-100.0) 06/22/22 15:09 ABG HCO3 33.6 mmol/L (22-26) H 06/22/22 15:09 ABG O2 Saturation 98.5 06/22/22 15:09 ABG Base Excess 7.7 mmol/L (-2.0-2.0) H 06/22/22 15:09 Ernesto Test N/a 06/22/22 15:09 A-a O2 Gradient 2.5 mmHg (5-10) L 06/22/22 15:09 Hematocrit 24.4 % (37-47) L 06/22/22 15:09 Hgb O2 Saturation 95.7 % (95-100) 06/22/22 15:09 Carboxyhemoglobin 2.0 %THgb (0.4-20.1) 06/22/22 15:09 Methemoglobin 0.8 % (0.4-1.5) 06/22/22 15:09 Total Hemoglobin 8.0 g/dL (12-16) L 06/22/22 15:09 Sodium 140.0 mmol/L (131-143) 06/22/22 15:09 Potassium 3.1 mmol/L (3.5-5.0) L 06/22/22 15:09 Glucose 104.0 mg/dL (70-115) 06/22/22 15:09 Ionized Calcium 1.1 mmol/L (1.1-1.4) 06/22/22 15:09 O2 Delivery Device Bipap 06/22/22 15:09 O2 Liters/Min 2.0 % 06/22/22 11:47 FiO2 25.0 % 06/22/22 15:09 PEEP 8.0 cmH20 06/22/22 15:09 Firewall Security Engineer ID Amh 06/22/22 15:09 Sodium 141 mmol/L (136-145) 06/24/22 02:13 Potassium 3.9 mmol/L (3.5-5.1) 06/24/22 02:13 Chloride 100 mmol/L (98-107) 06/24/22 02:13 Carbon Dioxide 30 mmol/L (22-29) H 06/24/22 02:13 Anion Gap 14.9 (5-19) 06/24/22 02:13 BUN 30 mg/dL (8-23) H 06/24/22 02:13 Creatinine 2.1 mg/dL (0.5-0.9) H 06/24/22 02:13 GFR Calculation Not Reportable 06/24/22 02:13 Glucose 110 mg/dL (65-115) 06/24/22 02:13 Calculated Osmolality 299 mOsm/kg (285-295) H 06/24/22 02:13 Lactic Acid 2.1 mmol/L (0.5-2.2) 06/22/22 11:00 Lactic Acid (Sepsis) 1.8 mmol/L (0.5-2.2) 06/22/22 14:00 Calcium 8.2 mg/dL (8.5-10.5) L 06/24/22 02:13 Magnesium 1.7 mg/dL (1.7-2.3) 06/23/22 04:29 Total Bilirubin 0.6 mg/dL (0.15-1.2) 06/24/22 02:13 AST 22 U/L (0-32) 06/24/22 02:13 ALT 14 U/L (0-33) 06/24/22 02:13 Alkaline Phosphatase 104 U/L (35-105) 06/24/22 02:13 NT-Pro-B Natriuret Pep 2703 pg/mL (0-450) H 06/22/22 10:15 Total Protein 6.4 g/dL (6.6-8.7) L 06/24/22 02:13 Albumin 3.4 g/dL (3.5-5.2) L 06/24/22 02:13 Globulin 3.0 g/dL (1.3-4.6) 06/24/22 02:13 Procalcitonin 0.16 ng/mL (0-0.5) 06/23/22 04:29 Urine Color Yellow (Yellow) 06/22/22 11:35 Urine Appearance Hazy (CLEAR) A 06/22/22 11:35 Urine pH 5 (5-7) 06/22/22 11:35 Ur Specific [place] 1.025 (1.005-1.030) 06/22/22 11:35 Urine Protein 3+ (Negative) H 06/22/22 11:35 Urine Glucose (UA) Norm (Normal) 06/22/22 11:35 Urine Ketones 1+ (Negative) H 06/22/22 11:35 Urine Blood 3+ (Negative) H 06/22/22 11:35 Urine Nitrate Positive (Negative) H 06/22/22 11:35 Urine Bilirubin 1+ (Negative) H 06/22/22 11:35 Urine Urobilinogen 1+ mg/dL (Negative) H 06/22/22 11:35 Ur Leukocyte Esterase 1+ (Negative) H 06/22/22 11:35 Urine RBC 15-25 /hpf (0-2) H 06/22/22 11:35 Urine WBC 5-10 /hpf (0-5) H 06/22/22 11:35 Ur Squamous Epith Cells 10-15 /hpf (0-5) H 06/22/22 11:35 Amorphous Sediment 2+ /hpf 06/22/22 11:35 Urine Bacteria 2+ /hpf (NONE) H 06/22/22 11:35 Ur Random Sodium 17 mmol/L 06/23/22 16:15 Ur Random Chloride 10 mmol/L 06/23/22 16:15 Nasal Influ A H1 2008 PCR Not detected (NOT DETECT) 06/22/22 12:55 Adenovirus (PCR) Not detected (NOT DETECT) 06/22/22 12:55 C. pneumoniae DNA (PCR) Not detected (NOT DETECT) 06/22/22 12:55 Coronavirus 229E (PCR) Not detected (NOT DETECT) 06/22/22 12:55 Human Metapneumovir PCR Not detected (NOT DETECT) 06/22/22 12:55 Influenza A (H1) PCR Not detected (NOT DETECT) 06/22/22 12:55 Influenza A (H3) PCR Not detected (NOT DETECT) 06/22/22 12:55 Influenza Type A (PCR) Not detected (NOT DETECT) 06/22/22 12:55 Influenza Type B (PCR) Not detected (NOT DETECT) 06/22/22 12:55 M. pneumoniae (PCR) Not detected (NOT DETECT) 06/22/22 12:55 Parainfluenza 1 (PCR) Not detected (NOT DETECT) 06/22/22 12:55 Parainfluenza 2 (PCR) Not detected (NOT DETECT) 06/22/22 12:55 Parainfluenza 3 (PCR) Not detected (NOT DETECT) 06/22/22 12:55 Parainfluenza 4 (PCR) Not detected (NOT DETECT) 06/22/22 12:55 RSV Type A (PCR) Not detected (NOT DETECT) 06/22/22 12:55 RSV Type B (PCR) Not detected (NOT DETECT) 06/22/22 12:55 Entero/Rhino (PCR) Not detected (NOT DETECT) 06/22/22 12:55 SARS-CoV-2 (PCR) Not detected (NOT DETECT) 06/22/22 12:55 Micro: Microbiology 06/22/22 16:59 MRSA Culture - Final Nose 06/22/22 12:40 Blood Culture - Preliminary Blood NEGATIVE TO DATE 06/22/22 12:35 Blood Culture - Preliminary Blood NEGATIVE TO DATE 06/22/22 16:56 Bacterial Antigens - Final Urine,Voided 06/22/22 16:56 Legionella Urinary Antigen - Final Urine Catheterized A&P Assessment and plan (1) Acute respiratory failure with hypoxia and hypercapnia: (2) Acute metabolic encephalopathy: (3) Acute kidney injury superimposed on CKD: (4) Dysphagia: (5) Diastolic heart failure: (6) Pacemaker: (7) CAD (coronary artery disease): (8) Pneumonia: Qualifiers: Laterality: right Lung location: lower lobe of lung Pneumonia type: due to unspecified organism Qualified Code(s): J18.9 - Pneumonia, unspecified organism Plan #Altered mental status secondary to CO2 narcosis #Acute on chronic hypercapnic respiratory failure-multifactorial with hypoventilation due to severe deconditioning and obesity and fluid overload due to diastolic heart failure and acute on chronic renal failure #Chronic right hemidiaphragm elevation likely secondary to chronic aspiration causing endobronchial mucosal edema #Barium swallow October 2021-weak oral and hypopharynx pharyngeal function and poor esophageal motility in the upper one third. #Shock-secondary to possible hypovolemia due to dehydration which may have tipped acute on chronic CKD #Severe deconditioning #Diastolic heart failure #Acute on chronic CKD -Continue BiPAP as tolerated for hypercapnic respiratory failure; it is a discharge she needs BiPAP/AVAPS at nighttime -Currently on Lasix 40 twice daily for diastolic heart failure -Currently on antibiotics until final cultures are available-however her procalcitonin is low, no white count, had some hypothermia episodes during admission; MRSA nares negative, blood cultures negative so far; we will schedule for bronchoscopic evaluation of right lower lobe airways for airway clearance and to rule out endobronchial lesions and to obtain BAL; it is okay to stop antibiotics -Continue pulmonary toileting -She received gentle hydration and albumin to restore intravascular volume, monitor urine output, electrolytes and renal functions-if worsening she may need hemodialysis in future-currently nephrology on board -She needs aggressive physical therapy because of overall deconditioning Discussed patient condition and management plan with patient herself, her at bedside, her next of kin granddaughter on phone, hospitalist taking care, RN and RT taking care of the patient Consult Attestations Medical Necessity Statement: She may need 24 to 48 hours ICU observation Time Spent in Patient Care: Greater than 35 minutes (>than 50% of time spent in counselling and/or direct pt care on unit) . Critical Care Time: The high probability of a clinically significant, sudden or life threatening deterioration of the patient's [pulmonary, renal, neuro,] system(s) required my full and direct attention, intervention and personal management. The critical care time is as shown. This time is in addition to time spent performing any reported procedures but includes the following: [x] Data and vital sign review and interpretation [x] Patient assessment, examination and intervention [x] Documentation [x] Medication orders and management Critical Care Time (min): 85 Coding Level of Care Code Critical Care >/= 30 minutes Diagnoses Acute respiratory failure with hypoxia and hypercapnia J96.01; J96.02 Acute metabolic encephalopathy G93.41 Acute kidney injury superimposed on CKD N17.9; N18.9 Dysphagia R13.10 Diastolic heart failure I50.30 Pacemaker Z95.0 CAD (coronary artery disease) I25.10 Pneumonia J18.9 Laterality: right Lung location: lower lobe of lung Pneumonia type: due to unspecified organism Time Spent (min) 85
[2022-06-23 18:07] LABS: Urine Random Sodium 17 mmol/L
[2022-06-23 18:08] LABS: Chloride Urine Random 10 mmol/L
[2022-06-23] MEDS: multivitamin therapeutic Tablet 1 TAB PO (20:46)
[2022-06-23] MEDS: ropinirole 2 mg Tablet PO (20:46)
[2022-06-24] VITALS (144 sets, daily range): BP systolic 79–121; BP diastolic 24–85; PULSE 80–88; RESP 12–30; TEMP 36.6–36.8; O2SAT 85–100
[2022-06-24] MEDS: albumin 25 G/100 ML BAG 60 G IV ×2 (02:01→19:42)
[2022-06-24 02:23] LABS: Basophils # 0.1 10^3/uL (0.0-0.1); Basophils % 1.3 %; Eosinophils # 0.1 10^3/uL (0.0-0.8); Hematocrit 26.9 % (37.0-47.0); Lymphocytes # 1.6 10^3/uL (0.8-4.8); Mean Corpuscular HGB Conc 29.7 g/dL (30.0-36.0); Mean Corpuscular Volume 97.5 fl (81-99); Mean Platelet Volume 11.9 fL (7.4-10.4); Monocytes # 0.6 10^3/uL (0.2-0.9); Monocytes % 9.9 %; Neutrophils # 3.24 10^3/uL (1.8-7.7); Neutrophils % 58.4 %; Nucleated Red Blood Cells % 0.5 %; Platelet Count 193 10^3/cmm (130-400); Red Blood Count 2.76 10^6/uL (4.1-5.3); Red Cell Distribution Width 17.3 % (12.1-15.1); White Blood Count 5.5 10^3/uL (4.0-10.0)
[2022-06-24] MEDS: FUROsemide 10 mg/mL SDV 4mL 40 MG IVP (02:50)
[2022-06-24 02:54] LABS: Alanine Aminotransferase 14 U/L (0-33); Albumin Level 3.4 g/dL (3.5-5.2); Alkaline Phosphatase 104 U/L (35-105); Anion Gap 14.9 (5-19); Aspartate Amino Transferase 22 U/L (0-32); Blood Urea Nitrogen 30 mg/dL (8-23); Calcium 8.2 mg/dL (8.5-10.5); Carbon Dioxide 30 mmol/L (22-29); Chloride 100 mmol/L (98-107); Glucose 110 mg/dL (65-115); Osmolality Calculated 299 mOsm/kg (285-295); Potassium 3.9 mmol/L (3.5-5.1); Sodium 141 mmol/L (136-145); Total Bilirubin 0.6 mg/dL (0.15-1.2); Total Protein 6.4 g/dL (6.6-8.7)
--- NOTE | 2022-06-24 08:18 | XR_ITS ---
WS: [id number] EXAMINATION: XR chest 1V portable [id number] REASON FOR EXAM: pneumonia COMPARISON: 06/22/2022 ORDER DATE: 06/24/2022 9:02 AM TECHNIQUE: A single, portable frontal chest x-ray was obtained. X-RAY FINDINGS: Lungs: There does appear to be interlobular septal thickening and mild alveolar component In the right upper lobe which is consistent with pulmonary vascular congestion but has decreased comp ared with previous. Unchanged right basilar opacity from probable atelectasis/pneumonia and right pleural effusion noted. Postobstructive or aspiration process should be excluded. Left lung is grossly clear. /Mediastinum: Cardiac silhouette appears enlarged and stable. Left chest wall single chamber cardiac device remains in place. Bones/joints: No acute osseous findings. XR/XR chest 1V portable [id number] IMPRESSION: Slightly improving interstitial alveolar changes in the right upper lobe Unchanged right basilar opacity as described above. Probably secondary to atelectasis and consolidation with effusion. Continued follow-up should be obtained. CT correlation may also be considered t o exclude central obstructive lesion
[2022-06-24] MEDS: ipratropium-albuterol 3 mL Neb INHALATION ×2 (09:13→20:30)
[2022-06-24] MEDS: acetylcysteine 200 mg/mL MDV 10 mL INHALATION ×2 (09:14→20:30)
[2022-06-24 09:36] LABS: Alveolar-Arterial Oxygen Gradi 1.8 mmHg (5-10); Arterial Blood Gas Hematocrit 23.6 % (37-47); Base Excess ABG 5.5 mmol/L (-2.0-2.0); Blood Gas Allen Test Pos; Blood Gas Operator Identificat CAK; Blood Gas Sample Site Radial, left; Blood Gas Sample Type Arterial; Carboxyhemoglobin 1.5 %THgb (0.4-20.1); HCO3 ABG 32.9 mmol/L (22-26); HGB O2 Sat 97.1 % (95-100); Ionized Calcium Level - ABG 1.2 mmol/L (1.1-1.4); Methemoglobin 0.2 % (0.4-1.5); Oxygen Device NC; Oxygen Saturation ABG 98.8; Potassium Level - ABG 3.4 mmol/L (3.5-5.0); Total Hemoglobin 7.7 g/dL (12-16)
[2022-06-24 09:39] LABS: ABG PCO2 67.4 mmHg (35-45)
--- NOTE | 2022-06-24 11:38 | P.PN_ITS ---
Subjective Subjective: denies any complaints Medications: Reviewed: Yes Vitals/I&O/Wt Last Vital Signs Temp 97.9 F 06/24/22 00:00 Pulse 80 06/24/22 11:12 Resp 16 06/24/22 09:47 BP 99/74 06/24/22 08:10 Pulse Ox 84 L 06/24/22 11:12 O2 Del Method Nasal Cannula 06/24/22 09:47 O2 Flow Rate 2 06/24/22 09:47 FiO2 21 06/24/22 11:12 06/23/22 06/24/22 06/24/22 22:59 06:59 14:59 Intake Total 704.699 / 764.262 126.035 / 890.297 Output Total 260 / 435 100 / 535 Balance 444.699 / 329.262 26.035 / 355.297 Weight last 48 hrs Weight 88.904 kg Weight 88.904 kg Physical Exam Urinary Catheter Management: Weber: Cath Placed During This Visit: yes Reason for Continuing Indwelling Catheter: Accurate Measurement of Urinary Output in Critically Ill Patients Urinary Catheter Date of Insertion: 06/22/22 Urinary Catheter Time of Insertion: 16:53 Data 06/24/22 02:13 06/24/22 02:13 Micro: Microbiology 06/22/22 16:59 MRSA Culture - Final Nose 06/22/22 12:40 Blood Culture - Preliminary Blood NEGATIVE TO DATE 06/22/22 12:35 Blood Culture - Preliminary Blood NEGATIVE TO DATE 06/22/22 16:56 Bacterial Antigens - Final Urine,Voided A&P Assessment and plan (1) Acute kidney injury superimposed on CKD: Plan 1. Acute on chronic kidney disease stage III: Baseline creatinine in the mid 1 range now creatinine up to 2.0. Oliguric. Has volume overload but not responded to diuretics adequately. -Hold lasix temporarily, C/w IV albumin , Noted U Na , U Cl - low. Renal US - unsucessful. -2 g sodium restriction and 1500 mill fluid restriction. -Avoid nephrotoxins and IV contrast studies. -Patient sees project safety manager as outpatient in [place] 2. Acute on chronic respiratory failure: Multifactorial, secondary to hypercapnia, CHF, 3. Hypokalemia: repleted 4. Hypertension: Blood pressure borderline low 5. Anemia: s/p Epogen Patient evaluated using audiovisual cart. Time spent 40 minutes Attestations Medical Necessity Statement*: per medicine team Coding Level of Care Code Acute Code for Chg Fwd Diagnoses Acute kidney injury superimposed on CKD N17.9; N18.9
[2022-06-24] MEDS: lidocaine 1% INJ 10 mL (per mL) XX (13:32)
--- NOTE | 2022-06-24 13:34 | P.PN_ITS ---
Subjective Subjective: Patient was seen and examined this morning, poor urine output, Lasix has been held, currently continuing albumin, patient has also received, bronchoscopy, today. Has to be placed back on BiPAP this morning, Given her current ABG. Medications: Reviewed: Yes Medication Review Details: Generic Name Dose Route Start Last Admin Trade Name Freq PRN Reason Stop Dose Admin Acetylcysteine 200 mg 06/23/22 14:00 06/24/22 09:14 Acetylcysteine 2 00 Mg/Ml Mdv 10 Ml INHALATION 200 mg Q6H.RESP KACEY Administration Albuterol/Ipratrop ium 3 ml 06/22/22 20:00 06/24/22 09:13 Ipratropium-Albu terol 3 Ml Neb INHALATION 3 ml Q6H.RESP KACEY Administration Ferrous Gluconate 324 mg 06/23/22 09:00 06/24/22 12:54 Ferrous Gluconat e 324 Mg Tablet PO Not Given DAILY KACEY Heparin Sodium (Po rcine) 5,000 unit 06/22/22 18:15 06/24/22 08:49 Heparin 5,000 Un it/Ml Inj 1 Ml SUBCUT Not Given Q12H KACEY Meropenem 250 mg/ Sodium 50 mls @ 100 mls/ hr 06/22/22 17:00 06/24/22 05:55 Chloride IV 100 mls/hr Q12H KACEY Administration Protocol Norepinephrine Bit artrate 4 mg 254 mls @ 0 mls/h r 06/22/22 18:30 06/24/22 01:59 / Dextrose IV 0 mcg/min .Q0M KACEY 0 mls/hr Titration Protocol Per Protocol Albumin Human 25 g in 100 mls @ 60 mls/hr 06/23/22 11:00 06/24/22 02:01 Albumin IV 06/25/22 06:00 60 mls/hr Q8H KACEY Administration Lanolin 1 applic 06/23/22 08:58 06/23/22 09:07 Lanolin Oint 7 G m TOPICAL 1 applic PRN PRN Administration DRYNESS Multivitamins Ther apeutic 1 tab 06/22/22 21:00 06/23/22 20:46 Multivitamin The rapeutic Tablet PO 1 tab BEDTIME KACEY Administration Non-Formulary Medi cation 2 mg 06/22/22 21:00 06/23/22 20:47 Eszopiclone [Ant esta] PO Not Given BEDTIME [facility] Non-Formulary Medi cation 24 mcg 06/22/22 18:00 06/24/22 12:54 Lubiprostone [Am itiza] PO Not Given BID [facility] Pantoprazole Sodiu m 40 mg 06/22/22 18:00 06/24/22 08:48 Pantoprazole 40 Mg Sdv IVP Not Given Q12H [facility] Pregabalin 75 mg 06/23/22 09:00 06/24/22 12:54 Pregabalin 75 Mg Capsule PO Not Given DAILY [facility] Ropinirole HCl 2 mg 06/22/22 21:00 06/23/22 20:46 Ropinirole 2 Mg Tablet PO 2 mg BEDTIME [facility] Administration Senna 17.2 mg 06/23/22 06:00 06/24/22 08:49 Sennosides 8.6 M g Tablet PO Not Given QAM [facility] Senna 8.6 mg 06/22/22 18:00 06/23/22 17:13 Sennosides 8.6 M g Tablet PO Not Given QPM [facility] Vitals/I&O/Wt Last Vital Signs Temp 97.9 F 06/24/22 00:00 Pulse 80 06/24/22 11:12 Resp 16 06/24/22 09:47 BP 99/74 06/24/22 08:10 Pulse Ox 84 L 06/24/22 11:12 O2 Del Method Nasal Cannula 06/24/22 09:47 O2 Flow Rate 2 06/24/22 09:47 FiO2 21 06/24/22 11:12 06/23/22 06/24/22 06/24/22 22:59 06:59 14:59 Intake Total 704.699 / 764.262 126.035 / 890.297 Output Total 260 / 435 100 / 535 Balance 444.699 / 329.262 26.035 / 355.297 Weight last 48 hrs Weight 88.904 kg Weight 88.904 kg Physical Exam Narrative: Currently she is alert awake, holding decent conversations. Const: COMMON NORMALS: patient oriented x3 HENMT: COMMON NORMALS: normocephalic and atraumatic HEAD & SCALP: normoc ephalic and atraumatic Resp: OTHER: Diminished air entry bilaterally Cardio: COMMON NORMALS: regular rate, regular rhythm, S1 normal heart sound present, S2 normal heart sound present, No gallops present (Cardio), No murmurs present (Cardio), No rub (Cardio) and Peripheral pulses 2+ throughout RATE: regular rate RHYTHM: regular rhythm HEART SOUNDS: S1 normal heart sound present and S2 normal heart sound present PERIPHERAL PULSES: Peripheral pulses 2+ throughout GI: COMMON NORMALS: Normal to inspection, nondistended, normoactive bowel sounds present, Soft to palpation, non-tender, No hepatosplenomegaly present and no masses AUSCULTATION: Yes normoactive bowel sounds PALPATION: Yes Soft to palpation and Yes No hepatosplenomegaly present RECTAL EXAM: deferred Extremity: COMMON NORMALS: no clubbing, cyanosis or edema and no pedal edema Neuro: COMMON NORMALS: patient oriented x3 Urinary Catheter Management: Weber: Cath Placed During This Visit: yes Reason for Continuing Indwelling Catheter: Accurate Measurement of Urinary O utput in Critically Ill Patients Urinary Catheter Date of Insertion: 06/22/22 Urinary Catheter Time of Insertion: 16:53 Data 06/24/22 02:13 06/24/22 02:13 Micro: Microbiology 06/22/22 16:59 MRSA Culture - Final Nose 06/22/22 12:40 Blood Culture - Preliminary Blood NEGATIVE TO DATE 06/22/22 12:35 Blood Culture - Preliminary Blood NEGATIVE TO DATE 06/22/22 16:56 Bacterial Antigens - Final Urine,Voided A&P Assessment and plan (1) Acute respiratory failure with hypoxia and hypercapnia: (2) Pneumonia: Qualifiers: Laterality: right Lung location: lower lobe of lung Pneumonia type: due to unspecified organism Qualified Code(s): J18.9 - Pneumonia, unspecified organism (3) Urinary tract infection: Qualifiers: Hematuria presence: with hematuria Urinary tract infection type: acute cystitis Qualified Code(s): N30.01 - Acute cystitis with hematuria (4) HTN (hypertension): (5) Atrial fibrillation: (6) Diastolic heart failure: (7) Essential tremor: (8) Asthma: (9) Acute metabolic encephalopathy: (10) Hypokalemia: (11) Sepsis: Plan 82 year old female with past medical history of atrial fibrillation, heart failure with reduced ejection fraction, coronary artery disease, status post pacemaker, CKD stage III, COPD, came in today with chief complaint of worsening lethargy as well as shortness of breath. Assessment: Respiratory failure with hypoxia and hypercapnia: Likely secondary decompensated heart failure, possible underlying hospital-acquired pneumonia. CT chest without contrast:Bilateral right greater than left lower lobe airspace infiltrates,Large right and small left pleural effusions.Ascites in the upper abdomen. 2D Echo: Normal left ventricular size and systolic function, EF 47 %. No ?dash onal wall motion abnormalities. ?Moderate biatrial enlargement.?Possibly normal RV size and ejection fraction.?Thickened mitral valve. Mild mitral annular calcification. Mild?mitral valve regurgitation.?[id number] tricuspid valve regurgitation.?Estimated pulmonary artery peak systolic pressure 37 mmHg. There is no pericardial effusion. Ultrasound chest: Prominent right effusion,Small left pleural effusion. Blood culture: NTD Sputum Gram stain and culture Urine Legionella antigen: Negative Bacterial antigen panel: Negative MRSA PCR: Negative Lasix 40 I.V twice daily (currently on hold) Currently on broad-spectrum antibiotic Vanco and meropenem Continue BiPAP Continue DuoNebs S/p bronchoscopy: Supplemental oxygen as needed. Pulmonary medicine on board Possibly CKD versus ANI on CKD Admission serum creatinine is 1.9 Baseline serum creatinine appears to be around 1-1.6 Monitor BMP Avoid nephrotoxic's Monitor intake output charting. Nephrology on board Sepsis possibly secondary to pneumonia/ UTI: Patient currently meets sepsis criteria as she is hypothermic, has required transient vasopressor support in the form of Levophed. IV fluid bolus was avoided in the presence of decompensated heart failure. Plan as 1 Acute on chronic decompensated heart failure with reduced ejection fraction: Plan is 1 History of COPD: Plan as 1 Acute metabolic encephalopathy: Secondary to hypercapnic respiratory failure, UTI. CT head without contrast no acute intracranial pathology. Continue to monitor mentation Continue BiPAP continue antibiotics UTI: Follow urine culture Currently appropriately covered with broad-spectrum antibiotics Hypokalemia: Monitor and replace serum potassium. CODE STATUS:AND DVT prophylaxis: Attestations Medical Necessity Statement*: Patient is to be in hospital for management of pneumonia. Coding Level of Care Code 58120 Diagnoses Acute respiratory failure with hypoxia and hypercapnia J96.01; J96.02 Pneumonia J18.9 Laterality: right Lung location: lower lobe of lung Pneumonia type: due to unspecified organism Urinary tract infection N30.01 Hematuria presence: with hematuria Urinary tract infection type: acute cystitis HTN (hypertension) I10 Atrial fibrillation I48.91 Diastolic heart failure I50.30 Essential tremor G25.0 Asthma J45.909 Acute metabolic encephalopathy G93.41 Hypokalemia E87.6 Sepsis A41.9
--- NOTE | 2022-06-24 14:08 | P.OP_ITS ---
Operative Report Date of procedure: June 24, 2022 Pre-op diagnosis: Preop Diagnosis Chronic right hemidiaphragm elevation Secondary to right lower lobe atelectasis to rule out endobronchial lesion Post-op diagnosis: Significantly edematous right lower lobe airways Specimens removed/disposition: 3 endobronchial biopsies from right lower lobe mucosa Surgeon: Janes Evans MD [facility] Brief History: Megan Das is a 82 year old female with past medical history of atrial fibrillation heart failure with reduced ejection fraction, CAD, s/p pacemaker, CKD stage III admitted for hypercapnic respiratory failure.? Chest x-ray showed irregular Interlobular septal thickening and some early alveolar component opacities in the upper lobes consistent with pulmonary vascular congestion. Increasing right basilar opacity from worsening of ate lectasis/pneumonia and right pleural effusion noted. Postobstructive or aspiration process should be excluded. Patient hypercapnia and mentation improved with BiPAP She had a CT chest as well which showed bilateral right greater than left lower airspace of infiltrates.? There is also bilateral pleural effusions.? Cardiomegaly and ascites in the upper abdomen. She had a thoracic ultrasound by radiology and they mentioned there is prominent right pleural effusion. Pulmonary consulted for hypercapnic respiratory failure as well as pleural effusions. I have known Ms. Guzman as an outpatient.? Since August 2021 as a ED discharge follow-up with suspected mucous plugging in multiple segmental bronchi in the right lower lobe.? Even at that time there was suspicion of large right pleural effusion.? During her subsequent visits to my pulmonary clinic I have checked with bedside ultrasound examination in the clinic which showed small right pleural effusion but right hemidiaphragm was significantly elevated.? She was managed conservatively for mucus clearance with Acapella, chest vest and subsequent visits she reported improvement in her breathing.? She was also using Breztri as outpatient and DuoNeb 2 times per week.? I did had a fernanda conversation with patient on multiple occasions in the clinic about pursuing for bronchoscopic evaluation of airways to check for any endobronchial obstruction and if we find any lesions she needs biopsies, however as outpatient she refused any invasive procedures. She had a modified barium swallow test in October 2021 which showed weak oral and hypopharynx pharyngeal function and poor esophageal motility in the upper one third.? Speech therapist was visiting her at home at that time.? With significant issues with swallowing and esophageal dysphagia-I suspected chronic aspiration causing endobronchial mucosal edema in right lower lobe subsegments and causing right lower lobe atelectasis with some right pleural effusion and hemidiaphragm elevation. During current hospitalization-she continues to have this chronic elevated right-sided hemidiaphragm suspicious for endobronchial occlusion with mucous plugging. She was willing to go for bronchoscopic evaluation while in the hospital to obtain BAL as well as clearance of mucus secretions and possible endobronchial biopsies. The indication, rationale, alternatives, complications, nature of procedure was explained to patient and her as well as patient's next of kin her granddaughter at bedside. Procedure: Procedure : 24673 Dx Bronchoscope w/BAL 65852 Dx Bronchoscopy w/Bronchial or Endobronchial biopsy(s), single or multiple sites [id number] Bronchoscopy w/ therapeutic aspiration of the tracheobronchial tree (clearance of airway secretions, removal of mucus plugs) Pre-Operative Diagnosis: Chronically elevated right hemidiaphragm likely secondary to mucous plugging/mucosal edema/endobronchial lesion Post-Operative Diagnosis: Edematous right lower lobe airways Indication: Chronically elevated right hemidiaphragm likely secondary to mucous plugging/mucosal edema/endobronchial lesion on imaging Consent: Consents were obtained from patient and placed in the chart Pre-procedure Evaluation: Patient was evaluated clinically and ancillary testing reviewed. The risk of having active MTB infection is very low in my clinical judgement. ASA: 4 Malampati score: unable to evaluate due to presence of endotracheal tube Time out: Performed by the procedure team and nursing staff. Vent support maintained on Fio2 100. Anesthesia: As per anesthesia team. [facility] was [facility] the [facility] for general anesthesia and laryngeal mask placement for airway. Local anesthesia: The vocal cords, india in the right and left mainstem bronchi were anesthetized with 1% lidocaine, 6 mL. Summary of Significant Findings: -Bronchoscope passed through laryngeal mask airway and mobile vocal cords noted. 1 mL 1% lidocaine instilled. Then the scope was passed through the vocal cords into the trachea. There was excessive dynamic expiratory collapse (>70%) of the trachea and both main bronchi with almost complete collapse during cough. Trachea mucosa appeared normal, no endotracheal lesion was seen. The india was sharp. The india, the right and left mainstem bronchi are anesthetized with 1 mL of 1% lidocaine in each area In a systematic manner bilateral bronchial tree was then examined. The bronchoscope was advanced into the left mainstem bronchus. The mucosa appeared normal with no endobronchial lesions. The left upper lobe, lingula and left lower lobe bronchi were examined up to the third subsegmental level and no abnormalities were identified. Mucosa appeared normal with no endobronchial lesion, active bleeding or mucous plug. There were some clear secretions in lower lobe-which were suctioned right away. ( [id number]) The bronchoscope was then introduced into the right mainstem bronchus. The right upper lobe segments were easily accessible and has no abnormalities. However when the bronchoscope was advanced into bronchus intermedius,-there appeared a significantly edematous mucosa occluding all 5 subsegments of right lower lobe. The right middle lobe opening is 90% open. I was able to pass the scope through the edematous mucosa and barely could enter the right lower lobe. I could not see medial basal segment opening. All the other openings of anterior basal, lateral basal, posterior basal, superior basal segments significantly edematous mucosa with near complete occlusion. I did not see any definite endobronchial lesion. When attempt to suction-I was able to aspirate thick mucus from these openings.([id number]) Bronchoscope was wedged at the opening of right lower lobe, 50 cc normal saline instilled and returned about 20 cc bronchoalveolar lavage.([id number]) With the help of forceps I check 3 endobronchial biopsy ([id number]) samples from right lower lobe edematous mucosa occluding the subsegments. There was grade 2 bleeding which was controlled with instillation of cold saline. After making sure there is no active bleeding bronchoscope was retracted and procedure terminated. Estimated Blood Loss: 5 to 10 cc Specimens: A. Bronchoalveolar lavage ([id number]) from right lower lobe sent for cultures, fluid analysis, cytology B. 3 endobronchial biopsy samples from right lower lobe mucosa placed in formalin and sent for histopathology Complications:None; patient tolerated the procedure well. Disposition: Patient is extubated and transferred back to ICU Surgeon: Janes Evans MD, [facility] Pulmonary critical Care Medicine [facility]
--- NOTE | 2022-06-24 14:17 | ANES.PREANE2 ---
Pre-Anesthetic Assessment Height/Weight: Height 1.65 m Weight 88.904 kg Temp Pulse Resp BP Pulse Ox O2 Del Method O2 Flow Rate 97.9 F 81 14 99/74 92 BiPAP 2 06/24/22 00:00 06/24/22 14:00 06/24/22 14:00 06/24/22 08:10 06/24/22 14:00 06/24/22 14:00 06/24/22 09:47 FiO2 30 06/24/22 14:00 Preop Diagnosis: Symptomatic pacemaker SOLA Operation Date: 06/24/22 12:00 Proposed Procedures p Bronchoscopy(Not Applicable) - Janes Alarcon DatarMD Familial anesthetic complications: none Was Beta Isidoro taken within 24 hours: Yes Was Clonidine taken within 24 hours: N/A Social No alcohol and No tobacco Exam alert, oriented x 3 and regular rate & rhythm Airway Submandibular: within normal limits Cervical ROM: within normal limits Mallampati: Class II Dentition: false Pulmonary Asthma RLD, aspiration CV/HEM Atrial Fibrillation, Coronary Artery Disease, Hypertension and Peripheral Vascular Disease Pacemaker, sepsis Chronic Renal Insufficiency Neuropsych Tremor Anesthetic Plan ASA status: 3 Anesthesia: General Medications/Allergies Home Medications Medication Instructions Recorded Confirmed Last Taken Type eszopiclone 2 mg tablet (Lunesta) 2 mg PO BEDTIME 05/16/19 06/22/22 06/21/22 History hydrocodone 5 mg-acetaminophen 325 1 tab PO BID PRN Pain 05/16/19 06/22/22 06/18/21 History mg tablet lubiprostone 24 mcg capsule 24 mcg PO BID 05/16/19 06/22/22 06/22/22 History (Amitiza) multivitamin 1 tab PO BEDTIME 05/16/19 06/22/22 06/22/22 History ropinirole 2 mg tablet 2 mg PO BEDTIME 10/11/20 06/22/22 06/21/22 History budesonide 160 mcg-glycopyr 9 2 inh inhalation BID 02/13/21 06/22/22 06/22/22 History mcg-formot 4.8 mcg/actuation HFA inhaler (Breztri Aerosphere) sennosides 8.6 mg tablet (senna) See Rx Instructions .Route .COMPLEX 06/18/21 06/22/22 06/22/22 History vit C 250 mg-vit E 90 mg-zinc 40 1 tab PO BID 06/18/21 06/22/22 06/22/22 History mg-copper 1 [id number] capsule (PreserVision AREDS-2) ferrous gluconate 324 mg (38 mg 324 mg PO DAILY 08/01/21 06/22/22 06/22/22 History iron) tablet nystatin 100,000 unit/mL oral 100,000 unit PO BID 08/01/21 06/22/22 10/01/21 History suspension furosemide 40 mg tablet 40 mg PO DAILY 01/19/22 06/22/22 06/22/22 History metoprolol succinate 25 mg 25 mg PO DAILY #90 tabs 03/10/22 06/22/22 06/21/22 Rx tablet,extended release 24 hr guaifenesin 100 mg/5 mL oral 200 mg (10 mL) PO Q4H PRN cough 03/26/22 06/22/22 Unknown Rx liquid (Mucinex Fast-Max Chest #473 mL Congestion) levalbuterol tartrate 45 2 inh inhalation Q6H #15 grams 03/26/22 06/22/22 06/22/22 Rx mcg/actuation aerosol inhaler (Xopenex HFA) lansoprazole 30 mg capsule,delayed 30 mg PO BID #180 caps 03/30/22 06/22/22 06/22/22 Rx release (Prevacid) montelukast 10 mg tablet 10 mg PO DAILY #30 tabs 06/02/22 06/22/22 06/21/22 Rx (Singulair) ipratropium bromide 21 mcg (0.03 2 spray intranasal TID PRN NASAL 06/22/22 06/22/22 Unknown History %) nasal spray DRAINAGE pregabalin 75 mg capsule (Lyrica) 75 mg PO DAILY 06/22/22 06/22/22 06/22/22 History propranolol 20 mg tablet 20 mg PO QAM 06/22/22 06/22/22 06/22/22 History Allergies Allergy/AdvReac Type Severity Reaction Status Date / Time atropine Allergy Unknown Unknown Verified 05/07/22 15:26 benztropine Allergy Unknown Unknown Verified 05/07/22 15:26 cefadroxil Allergy Unknown Unknown Verified 05/07/22 15:26 cimetidine Allergy Unknown Unknown Verified 05/07/22 15:26 enalapril Allergy Unknown Unknown Verified 05/07/22 15:26 enalaprilat Allergy Unknown Unknown Verified 05/07/22 15:26 gabapentin Allergy Unknown Unknown Verified 05/07/22 15:26 Sulfa (Sulfonamide Allergy Unknown Unknown Verified 05/07/22 15:26 Antibiotics) tramadol Allergy Unknown ADR-Itching Verified 05/07/22 15:26 zolpidem Allergy Unknown Unknown Verified 05/07/22 15:26 albuterol Allergy ALGY-Swell Verified 06/22/22 10:44 Lip/Tongue/Throat Current Medications Generic Name Dose Route Start Last Admin Trade Name Freq PRN Reason Stop Dose Admin Acetylcysteine 200 mg 06/23/22 14:00 06/24/22 09:14 Acetylcysteine 200 Mg/Ml Mdv 10 Ml INHALATION 200 mg Q6H.RESP KACEY Administration Albuterol/Ipratropium 3 ml 06/22/22 20:00 06/24/22 09:13 Ipratropium-Albuterol 3 Ml Neb INHALATION 3 ml Q6H.RESP KACEY Administration Ferrous Gluconate 324 mg 06/23/22 09:00 06/24/22 12:54 Ferrous Gluconate 324 Mg Tablet PO Not Given DAILY KACEY Heparin Sodium (Porcine) 5,000 unit 06/22/22 18:15 06/24/22 08:49 Heparin 5,000 Unit/Ml Inj 1 Ml SUBCUT Not Given Q12H KACEY Meropenem 250 mg/ Sodium 50 mls @ 100 mls/hr 06/22/22 17:00 06/24/22 05:55 Chloride IV 100 mls/hr Q12H KACEY Administration Protocol Norepinephrine Bitartrate 4 mg 254 mls @ 0 mls/hr 06/22/22 18:30 06/24/22 01:59 / Dextrose IV 0 mcg/min .Q0M KACEY 0 mls/hr Titration Protocol Per Protocol Albumin Human 25 g in 100 mls @ 60 mls/hr 06/23/22 11:00 06/24/22 02:01 Albumin IV 06/25/22 06:00 60 mls/hr Q8H KACEY Administration Lanolin 1 applic 06/23/22 08:58 06/23/22 09:07 Lanolin Oint 7 Gm TOPICAL 1 applic PRN PRN Administration DRYNESS Multivitamins Therapeutic 1 tab 06/22/22 21:00 06/23/22 20:46 Multivitamin Therapeutic Tablet PO 1 tab BEDTIME KACEY Administration Non-Formulary Medication 2 mg 06/22/22 21:00 06/23/22 20:47 Eszopiclone [Lunesta] PO Not Given BEDTIME KACEY Non-Formulary Medication 24 mcg 06/22/22 18:00 06/24/22 12:54 Lubiprostone [Amitiza] PO Not Given BID KACEY Pantoprazole Sodium 40 mg 06/22/22 18:00 06/24/22 08:48 Pantoprazole 40 Mg Sdv IVP Not Given Q12H KACEY Pregabalin 75 mg 06/23/22 09:00 06/24/22 12:54 Pregabalin 75 Mg Capsule PO Not Given DAILY KACEY Ropinirole HCl 2 mg 06/22/22 21:00 06/23/22 20:46 Ropinirole 2 Mg Tablet PO 2 mg BEDTIME KACEY Administration Senna 17.2 mg 06/23/22 06:00 06/24/22 08:49 Sennosides 8.6 Mg Tablet PO Not Given QAM KACEY Senna 8.6 mg 06/22/22 18:00 06/23/22 17:13 Sennosides 8.6 Mg Tablet PO Not Given QPM KACEY PFSH Anesthesia Medical History Acute kidney injury superimposed on CKD Atrial fibrillation CAD (coronary artery disease) Dehydration Diastolic heart failure GERD (gastroesophageal reflux disease) HTN (hypertension) Iron deficiency anemia Left ankle swelling Myoclonus Osteoarthritis Pacemaker Pacemaker syndrome Pleural effusion Varicose veins of left lower extremity with other complications Surgical History Previous back surgery S/P cardiac pacemaker procedure S/P cataract extraction S/P hysterectomy S/P tubal ligation Family History Father , [place] age 44 Myocardial infarction Social History Smoking and tobacco status: never smoked Data Anesthesia 06/24/22 02:13 06/24/22 02:13 Short CBC 06/23/22 06/24/22 Range/Units 04:29 02:13 WBC 6.8 5.5 (4.0-10.0) 10^3/uL Hgb 8.5 L 8.0 L (11.5-15.3) g/dL Hct 28.6 L 26.9 L (37.0-47.0) % MCV 98.6 97.5 (81-99) fl Plt Count 252 193 (130-400) 10^3/cmm Neut % (Auto) 66.3 58.4 % Neut # (Auto) 4.48 3.24 (1.8-7.7) 10^3/uL BMP 06/23/22 06/24/22 04:29 02:13 Sodium 138 141 Potassium 3.1 L 3.9 Chloride 95 L 100 Carbon Dioxide 28 30 H BUN 27 H 30 H Creatinine 2.0 H 2.1 H Glucose 80 110 Calcium 8.1 L 8.2 L Liver Function 06/23/22 06/24/22 Range/Units 04:29 02:13 Total Bilirubin 0.7 0.6 (0.15-1.2) mg/dL AST 20 22 (0-32) U/L ALT 14 14 (0-33) U/L Alkaline Phosphatase 110 H 104 (35-105) U/L Albumin 2.8 L 3.4 L (3.5-5.2) g/dL COVID Results 06/22/22 12:55 Coronavirus 229E (PCR) Not detected SARS-CoV-2 (PCR) Not detected Coags 06/23/22 08:24 PT 16.30 H INR 1.27 H ABG 06/22/22 06/24/22 15:09 09:29 Specimen Type Arterial Arterial Sample Site Brachial, left Radial, left ABG pH 7.39 7.30 L ABG pCO2 55.9 H 67.4 H* ABG pO2 92.1 106.0 H ABG HCO3 33.6 H 32.9 H ABG O2 Saturation 98.5 98.8 ABG Base Excess 7.7 H 5.5 H A-a O2 Gradient 2.5 L 1.8 L O2 Delivery Device Bipap Nc O2 Liters/Min 2.0 FiO2 25.0 28.0 PEEP 8.0 Microbiology 06/22/22 16:59 MRSA Culture - Final Nose 06/22/22 12:40 Blood Culture - Preliminary Blood NEGATIVE TO DATE 06/22/22 12:35 Blood Culture - Preliminary Blood NEGATIVE TO DATE 06/22/22 16:56 Bacterial Antigens - Final Urine,Voided Cardiac Studies: Echocardiogram 06/22/22
[2022-06-24 15:18] LABS: Apprearance, Bronch Wash Cloudy (CLEAR); Bronch Source Right Lower Lobe; Color, Bronc Wash Slight Pink; Cyto Order Verification Order Verified; PATH Referral Yes
[2022-06-24 15:31] LABS: Total Cells Counted Bronch 200
[2022-06-24] MEDS: sodium chloride 0.9% 1,000 ML 30 ML IV (15:37)
[2022-06-24] MEDS: multivitamin therapeutic Tablet 1 TAB PO (20:00)
[2022-06-24] MEDS: ropinirole 2 mg Tablet PO (20:00)
[2022-06-25] VITALS (30 sets, daily range): BP systolic 104–141; BP diastolic 65–92; PULSE 80–82; RESP 13–33; TEMP 35.8; O2SAT 88–100
[2022-06-25] MEDS: ipratropium-albuterol 3 mL Neb INHALATION ×4 (02:30→19:43)
[2022-06-25] MEDS: acetylcysteine 200 mg/mL MDV 10 mL INHALATION (02:31)
[2022-06-25] MEDS: albumin 25 G/100 ML BAG 60 G IV (02:49)
[2022-06-25 03:10] LABS: Basophils # 0.1 10^3/uL (0.0-0.1); Basophils % 1.2 %; Eosinophils # 0.1 10^3/uL (0.0-0.8); Eosinophils % 2.5 %; Hematocrit 25.9 % (37.0-47.0); Hemoglobin 7.6 g/dL (11.5-15.3); Lymphocytes # 1.3 10^3/uL (0.8-4.8); Mean Corpuscular HGB Conc 29.3 g/dL (30.0-36.0); Mean Corpuscular Hemoglobin 28.8 pg (28.0-34.0); Mean Corpuscular Volume 98.1 fl (81-99); Mean Platelet Volume 12.7 fL (7.4-10.4); Monocytes # 0.4 10^3/uL (0.2-0.9); Monocytes % 8.6 %; Neutrophils # 2.43 10^3/uL (1.8-7.7); Neutrophils % 56.2 %; Nucleated Red Blood Cells % 0 %; Platelet Count 192 10^3/cmm (130-400); Red Blood Count 2.64 10^6/uL (4.1-5.3); Red Cell Distribution Width 17.3 % (12.1-15.1); White Blood Count 4.3 10^3/uL (4.0-10.0)
[2022-06-25 03:29] LABS: Alanine Aminotransferase 12 U/L (0-33); Albumin Level 3.6 g/dL (3.5-5.2); Alkaline Phosphatase 87 U/L (35-105); Anion Gap 16.7 (5-19); Aspartate Amino Transferase 22 U/L (0-32); Blood Urea Nitrogen 33 mg/dL (8-23); Calcium 8.4 mg/dL (8.5-10.5); Carbon Dioxide 30 mmol/L (22-29); Chloride 99 mmol/L (98-107); Globulin 2.7 g/dL (1.3-4.6); Glucose 81 mg/dL (65-115); Osmolality Calculated 300 mOsm/kg (285-295); Potassium 3.7 mmol/L (3.5-5.1); Sodium 142 mmol/L (136-145); Total Bilirubin 0.6 mg/dL (0.15-1.2); Total Protein 6.3 g/dL (6.6-8.7)
[2022-06-25] MEDS: pantoprazole 40 mg SDV IVP ×2 (05:38→17:44)
[2022-06-25] MEDS: heparin 5,000 unit/mL INJ 1 mL 5000 UNIT SUBCUT ×2 (06:17→17:44)
[2022-06-25] MEDS: sennosides 8.6 mg Tablet 17.2 MG PO (06:19)
[2022-06-25 08:20] LABS: Glucose Point of Care 92 mg/dL (70-110)
[2022-06-25] MEDS: pregabalin 75 mg Capsule PO (08:58)
[2022-06-25] MEDS: ferrous gluconate 324 mg Tablet PO (08:58)
--- NOTE | 2022-06-25 09:11 | P.PN_ITS ---
Subjective Subjective: -No overnight events; -Patient sitting out of bed to chair and having her breakfast -Appears clinically improved-currently requiring 2 L nasal cannula -Patient creatinine is down to 1.9 close to her baseline, urine output has improved, she had volume overload and was diuresed-her Lasix were held temporarily by nephrology; electrolytes and bicarbonate are acceptable range -Chest x-ray showed increased opacity in right lower lobe-probably secondary to installation of normal saline to obtain BAL yesterday and some endobronchial bleeding while biopsies were taken; there was mild drop in hemoglobin hematocrit and patient denied any hemoptysis today. We will repeat CBC Medications: Reviewed: Yes Medication Review Details: Generic Name Dose Route Start Last Admin Trade Name Freq PRN Reason Stop Dose Admin Acetylcysteine 200 mg 06/23/22 14:00 06/24/22 09:14 Acetylcysteine 2 00 Mg/Ml Mdv 10 Ml INHALATION 200 mg Q6H.RESP KACEY Administration Albuterol/Ipratrop ium 3 ml 06/22/22 20:00 06/24/22 09:13 Ipratropium-Albu terol 3 Ml Neb INHALATION 3 ml Q6H.RESP KACEY Administration Ferrous Gluconate 324 mg 06/23/22 09:00 06/24/22 12:54 Ferrous Gluconat e 324 Mg Tablet PO Not Given DAILY KACEY Heparin Sodium (Po rcine) 5,000 unit 06/22/22 18:15 06/24/22 08:49 Heparin 5,000 Un it/Ml Inj 1 Ml SUBCUT Not Given Q12H KACEY Meropenem 250 mg/ Sodium 50 mls @ 100 mls/ hr 06/22/22 17:00 06/24/22 05:55 Chloride IV 100 mls/hr Q12H KACEY Administration Protocol Norepinephrine Bit artrate 4 mg 254 mls @ 0 mls/h r 06/22/22 18:30 06/24/22 01:59 / Dextrose IV 0 mcg/min .Q0M KACEY 0 mls/hr Titration Protocol Per Protocol Albumin Human 25 g in 100 mls @ 60 mls/hr 06/23/22 11:00 06/24/22 02:01 Albumin IV 06/25/22 06:00 60 mls/hr Q8H KACEY Administration Lanolin 1 applic 06/23/22 08:58 06/23/22 09:07 Lanolin Oint 7 G m TOPICAL 1 applic PRN PRN Administration DRYNESS Multivitamins Ther apeutic 1 tab 06/22/22 21:00 06/23/22 20:46 Multivitamin The rapeutic Tablet PO 1 tab BEDTIME KACEY Administration Non-Formulary Medi cation 2 mg 06/22/22 21:00 06/23/22 20:47 Eszopiclone [Ant esta] PO Not Given BEDTIME KACEY Non-Formulary Medi cation 24 mcg 06/22/22 18:00 06/24/22 12:54 Lubiprostone [Am itiza] PO Not Given BID KACEY Pantoprazole Sodiu m 40 mg 06/22/22 18:00 06/24/22 08:48 Pantoprazole 40 Mg Sdv IVP Not Given Q12H KACEY Pregabalin 75 mg 06/23/22 09:00 06/24/22 12:54 Pregabalin 75 Mg Capsule PO Not Given DAILY [facility] Ropinirole HCl 2 mg 06/22/22 21:00 06/23/22 20:46 Ropinirole 2 Mg Tablet PO 2 mg BEDTIME [facility] Administration Senna 17.2 mg 06/23/22 06:00 06/24/22 08:49 Sennosides 8.6 M g Tablet PO Not Given QAM KACEY Senna 8.6 mg 06/22/22 18:00 06/23/22 17:13 Sennosides 8.6 M g Tablet PO Not Given QPM [facility] Vitals/I&O/Wt Last Vital Signs Temp 98.2 F 06/24/22 21:00 Pulse 80 06/25/22 08:50 Resp 16 06/25/22 08:50 BP 107/76 06/25/22 04:00 Pulse Ox 95 06/25/22 08:50 O2 Del Method Room Air 06/25/22 08:50 O2 Flow Rate 2 06/25/22 08:50 FiO2 21 06/25/22 02:32 06/24/22 06/25/22 06/25/22 22:59 06:59 14:59 Intake Total 501.5 / 501.5 420 / 921.5 350 / 350 Output Total 100 / 100 425 / 525 Balance 401.5 / 401.5 -5 / 396.5 350 / 350 Weight last 48 hrs Weight 195 lb 6.4 oz Weight 196 lb Physical Exam Narrative: General: alert, in no acute respiratory distress, elderly patient HEENT: conj clear, EOMI, PERRL, mmm, Neck: supple, no meningismus Heme: no cervical LAP Respiratory: Inspection: No visible deformity of the chest wall Palpation: Trachea is mildly deviated to the right, bilateral symmetric expansion Percussion: Bilateral tympanic percussion note both anterior and posteriorly Auscultation: Bilateral clear to auscultation both anterior and posteriorly, no crackles wheezing or rhonchi; reduced breath sounds right lower lung zone Cardiovascular: rrr, nl s1s2, no mrg Abdomen: soft, nt, nd, no r/g, bs+ Extremities: pulses +, no edema, no c/c : no CVA tenderness Skin: intact, no rash MSK: no back or neck pain Neurologic: grossly intact Urinary Catheter Management: Weber: Cath Placed During This Visit: yes Reason for Continuing Indwelling Catheter: Accurate Measurement of Urinary Outp ut in Critically Ill Patients Urinary Catheter Date of Insertion: 06/22/22 Urinary Catheter Time of Insertion: 16:53 Data 06/25/22 02:34 06/25/22 02:34 Other Labs: Radiology Impressions Head CT 06/22/22 11:40 IMPRESSION: 1. No evidence of intracranial hemorrhage or mass effect. 2. Mild small vessel changes. Mild parenchymal volume loss. 3. Vascular calcification. 4. No acute intracranial findings. Chest CT 06/22/22 15:21 IMPRESSION: 1. Bilateral right greater than left lower lobe airspace infiltrates. 2. Ascending thoracic aorta dilated to 4.7 cm. 3. Cardiomegaly. 4. Coronary artery atherosclerotic calcifications. 5. Large right and small left pleural effusions. 6. Ascites in the upper abdomen. 7. Right kidney cyst, negative for follow-up advised. COMMENTS: Consistent with the [employer]'s Incidental Findings Committee white paper (J Am Lucinda Radiol 2018): Any incidental renal lesion less than 1 cm or classified as too small to characterize, or any incidental cystic renal lesion characterized as simple-appearing, is likely benign. No follow-up imaging is recommended for these lesions per consensus recommendations based on imaging criteria. Chest Ultrasound 06/23/22 07:57 IMPRESSION: Prominent right effusion Small left pleural effusion The effusions are better visualized calibrated on recent CT imaging of the chest dated 06/22/2022 Renal Ultrasound 06/23/22 10:55 IMPRESSION: Unable to image kidneys due to patient condition Chest X-Ray 06/25/22 09:13 IMPRESSION: Changes are consistent with increased effusion on the right with other causes of consolidation contributing to the change not excluded. No current pulmonary vascular congestion. Laboratory Results WBC 4.3 10^3/uL (4.0-10.0) 06/25/22 02:34 RBC 2.64 10^6/uL (4.1-5.3) L 06/25/22 02:34 Hgb 7.6 g/dL (11.5-15.3) L 06/25/22 02:34 Hct 25.9 % (37.0-47.0) L 06/25/22 02:34 MCV 98.1 fl (81-99) 06/25/22 02:34 MCH 28.8 pg (28.0-34.0) 06/25/22 02:34 MCHC 29.3 g/dL (30.0-36.0) L 06/25/22 02:34 RDW 17.3 % (12.1-15.1) H 06/25/22 02:34 Plt Count 192 10^3/cmm (130-400) 06/25/22 02:34 MPV 12.7 fL (7.4-10.4) H 06/25/22 02:34 Neut % (Auto) 56.2 % 06/25/22 02:34 Lymph % (Auto) 31.0 % 06/25/22 02:34 [place] % (Auto) 8.6 % 06/25/22 02:34 Eos % (Auto) 2.5 % 06/25/22 02:34 Baso % (Auto) 1.2 % 06/25/22 02:34 Neut # (Auto) 2.43 10^3/uL (1.8-7.7) 06/25/22 02:34 Lymph # (Auto) 1.3 10^3/uL (0.8-4.8) 06/25/22 02:34 [place] # (Auto) 0.4 10^3/uL (0.2-0.9) 06/25/22 02:34 Eos # (Auto) 0.1 10^3/uL (0.0-0.8) 06/25/22 02:34 Baso # (Auto) 0.1 10^3/uL (0.0-0.1) 06/25/22 02:34 Nucleated RBC % (auto) 0 % 06/25/22 02:34 Nucleated RBCs # 0.0 /100WBC 06/25/22 02:34 PT 16.30 SECONDS (12.1-14.9) H 06/23/22 08:24 INR 1.27 (0.8-1.2) H 06/23/22 08:24 Specimen Type Arterial 06/24/22 09:29 Sample Site Radial, left 06/24/22 09:29 ABG pH 7.30 (7.35-7.45) L 06/24/22 09:29 ABG pCO2 67.4 mmHg (35-45) H* 06/24/22 09:29 ABG pO2 106.0 mmHg (80.0-100.0) H 06/24/22 09:29 ABG HCO3 32.9 mmol/L (22-26) H 06/24/22 09:29 ABG O2 Saturation 98.8 06/24/22 09:29 ABG Base Excess 5.5 mmol/L (-2.0-2.0) H 06/24/22 09:29 Ernesto Test Pos 06/24/22 09:29 A-a O2 Gradient 1.8 mmHg (5-10) L 06/24/22 09:29 Hematocrit 23.6 % (37-47) L 06/24/22 09:29 Hgb O2 Saturation 97.1 % (95-100) 06/24/22 09:29 Carboxyhemoglobin 1.5 %THgb (0.4-20.1) 06/24/22 09:29 Methemoglobin 0.2 % (0.4-1.5) L 06/24/22 09:29 Total Hemoglobin 7.7 g/dL (12-16) L 06/24/22 09:29 Sodium 141.0 mmol/L (131-143) 06/24/22 09:29 Potassium 3.4 mmol/L (3.5-5.0) L 06/24/22 09:29 Glucose 100.0 mg/dL (70-115) 06/24/22 09:29 Ionized Calcium 1.2 mmol/L (1.1-1.4) 06/24/22 09:29 O2 Delivery Device Nc 06/24/22 09:29 O2 Liters/Min 2.0 % 06/24/22 09:29 FiO2 28.0 % 06/24/22 09:29 PEEP 8.0 cmH20 06/22/22 15:09 Project Internship ID Cak 06/24/22 09:29 Sodium 142 mmol/L (136-145) 06/25/22 02:34 Potassium 3.7 mmol/L (3.5-5.1) 06/25/22 02:34 Chloride 99 mmol/L (98-107) 06/25/22 02:34 Carbon Dioxide 30 mmol/L (22-29) H 06/25/22 02:34 Anion Gap 16.7 (5-19) 06/25/22 02:34 BUN 33 mg/dL (8-23) H 06/25/22 02:34 Creatinine 1.9 mg/dL (0.5-0.9) H 06/25/22 02:34 GFR Calculation Not Reportable 06/25/22 02:34 Glucose 81 mg/dL (65-115) 06/25/22 02:34 POC Glucose 134 mg/dL (70-110) H 06/25/22 10:59 Calculated Osmolality 300 mOsm/kg (285-295) H 06/25/22 02:34 Lactic Acid 2.1 mmol/L (0.5-2.2) 06/22/22 11:00 Lactic Acid (Sepsis) 1.8 mmol/L (0.5-2.2) 06/22/22 14:00 Calcium 8.4 mg/dL (8.5-10.5) L 06/25/22 02:34 Magnesium 1.7 mg/dL (1.7-2.3) 06/23/22 04:29 Total Bilirubin 0.6 mg/dL (0.15-1.2) 06/25/22 02:34 AST 22 U/L (0-32) 06/25/22 02:34 ALT 12 U/L (0-33) 06/25/22 02:34 Alkaline Phosphatase 87 U/L (35-105) 06/25/22 02:34 NT-Pro-B Natriuret Pep 2703 pg/mL (0-450) H 06/22/22 10:15 Total Protein 6.3 g/dL (6.6-8.7) L 06/25/22 02:34 Albumin 3.6 g/dL (3.5-5.2) 06/25/22 02:34 Globulin 2.7 g/dL (1.3-4.6) 06/25/22 02:34 Procalcitonin 0.16 ng/mL (0-0.5) 06/23/22 04:29 Urine Color Yellow (Yellow) 06/22/22 11:35 Urine Appearance Hazy (CLEAR) A 06/22/22 11:35 Urine pH 5 (5-7) 06/22/22 11:35 Ur Specific [place] 1.025 (1.005-1.030) 06/22/22 11:35 Urine Protein 3+ (Negative) H 06/22/22 11:35 Urine Glucose (UA) Norm (Normal) 06/22/22 11:35 Urine Ketones 1+ (Negative) H 06/22/22 11:35 Urine Blood 3+ (Negative) H 06/22/22 11:35 Urine Nitrate Positive (Negative) H 06/22/22 11:35 Urine Bilirubin 1+ (Negative) H 06/22/22 11:35 Urine Urobilinogen 1+ mg/dL (Negative) H 06/22/22 11:35 Ur Leukocyte Esterase 1+ (Negative) H 06/22/22 11:35 Urine RBC 15-25 /hpf (0-2) H 06/22/22 11:35 Urine WBC 5-10 /hpf (0-5) H 06/22/22 11:35 Ur Squamous Epith Cells 10-15 /hpf (0-5) H 06/22/22 11:35 Amorphous Sediment 2+ /hpf 06/22/22 11:35 Urine Bacteria 2+ /hpf (NONE) H 06/22/22 11:35 Ur Random Sodium 17 mmol/L 06/23/22 16:15 Ur Random Chloride 10 mmol/L 06/23/22 16:15 Nasal Influ A H1 2009 PCR Not detected (NOT DETECT) 06/22/22 12:55 Bronch Specimen Source Right lower lobe 06/24/22 13:36 Bronchial Fluid Color Slight pink 06/24/22 13:36 Bronchial Fluid Appearance Cloudy (CLEAR) 06/24/22 13:36 Bronchial Fluid WBC 98 /uL 06/24/22 13:36 Bronchial Fluid RBC 2 10^3/uL 06/24/22 13:36 Bronch Cells Counted 200 06/24/22 13:36 Bronchial Neutrophils 70.00 % (0.9-2.3) H 06/24/22 13:36 Bronchial Lymphocytes 12.00 % (10.71-12.91) 06/24/22 13:36 Bronchial Macrophages 18.00 % (83.6-86.8) L 06/24/22 13:36 Bronchial Diff Comment Yes 06/24/22 13:36 Adenovirus (PCR) Not detected (NOT DETECT) 06/22/22 12:55 C. pneumoniae DNA (PCR) Not detected (NOT DETECT) 06/22/22 12:55 Coronavirus 229E (PCR) Not detected (NOT DETECT) 06/22/22 12:55 Human Metapneumovir PCR Not detected (NOT DETECT) 06/22/22 12:55 Influenza A (H1) PCR Not detected (NOT DETECT) 06/22/22 12:55 Influenza A (H3) PCR Not detected (NOT DETECT) 06/22/22 12:55 Influenza Type A (PCR) Not detected (NOT DETECT) 06/22/22 12:55 Influenza Type B (PCR) Not detected (NOT DETECT) 06/22/22 12:55 M. pneumoniae (PCR) Not detected (NOT DETECT) 06/22/22 12:55 Parainfluenza 1 (PCR) Not detected (NOT DETECT) 06/22/22 12:55 Parainfluenza 2 (PCR) Not detected (NOT DETECT) 06/22/22 12:55 Parainfluenza 3 (PCR) Not detected (NOT DETECT) 06/22/22 12:55 Parainfluenza 4 (PCR) Not detected (NOT DETECT) 06/22/22 12:55 RSV Type A (PCR) Not detected (NOT DETECT) 06/22/22 12:55 RSV Type B (PCR) Not detected (NOT DETECT) 06/22/22 12:55 Entero/Rhino (PCR) Not detected (NOT DETECT) 06/22/22 12:55 SARS-CoV-2 (PCR) Not detected (NOT DETECT) 06/22/22 12:55 A&P Assessment and plan (1) Acute respiratory failure with hypoxia and hypercapnia: (2) Acute metabolic encephalopathy: (3) Acute kidney injury superimposed on CKD: (4) Dysphagia: (5) Diastolic heart failure: (6) Pneumonia: Qualifiers: Laterality: right Lung location: lower lobe of lung Pneumonia type: due to unspecified organism Qualified Code(s): J18.9 - Pneumonia, unspecified organism Plan #Altered mental status secondary to CO2 narcosis-mentation improved with APAP #Acute on chronic hypercapnic respiratory failure-multifactorial with hypovent ilation due to severe deconditioning; excessive dynamic airway collapse and fluid overload due to diastolic heart failure and acute on chronic renal failure #Excessive dynamic airway collapse secondary to asthma #Chronic right hemidiaphragm elevation secondary to chronic aspiration causing endobronchial mucosal edema #Barium swallow October 2021-weak oral and hypopharynx pharyngeal function and p oor esophageal motility in the upper one third. #Shock-secondary to possible hypovolemia due to dehydration which may have tipped acute on chronic CKD-resolved #Severe deconditioning #Diastolic heart failure #Acute on chronic CKD-improving #Noneosinophilic allergic asthma with elevated IgE-recommended to continue Breztri 1 puff daily as outpatient -Today patient sitting out of bed to chair and having her breakfast -Appears clinically improved-currently requiring 2 L nasal cannula -Tolerated BiPAP overnight -Yesterday bronchoscopy, although not done under conscious sedation, when she was coughing there was excessive dynamic expiratory collapse (>70%) of the trachea and both main bronchi with almost complete collapse during cough suggesting excessive dynamic airway collapse which can happen due to laxity of posterior membrane due to mechanical stretch from chronic coughing in this patient with underlying asthma. This puts her at risk of inability to mobilize secretions which can cause mucous plugging and lead to bronchiectasis or even respiratory failure. Even if she ge ts intubated-we have to anticipate difficulty while weaning from ventilator although patient wishes to be DNR/DNI. We will continue to manage with NIPPV, chest physiotherapy, and airway clearance techniques. I strongly recommend to continue NIPPV at home. -Also there is bronchoscopic evidence of significant mucosal edema with near complete occlusion of right lower lobe subsegments most likely secondary to chronic aspiration which is contributing to right lower lobe atelectasis and right hemidiaphragm elevation; -Pathology of endobronchial biopsies of right lower lobe airways was negative for malignancy; BAL fluid analysis is neutrophil predominant; cultures are pending, she is currently on vancomycin and meropenem until final cultures are available-however her procalcitonin is low, no white count, had some hypothermia episodes during admission; MRSA nares negative, blood cultures negative so far -Patient creatinine is down to 1.9 close to her baseline, urine output has improved, she had volume overload and was diuresed-her Lasix were held temporarily by nephrology; electrolytes and bicarbonate are acceptable range -Chest x-ray showed increased opacity in right lower lobe-probably secondary to installation of normal saline to obtain BAL yesterday and some endobronchial bleeding while biopsies were taken; there was mild drop in hemoglobin hematocrit and patient denied any hemoptysis today. We will repeat CBC -PFTS 11/12/21:PFT revealed a severe restriction, no significant postbronchodilator response, lung volumes consistent with hyperinflation and air trapping.? Gas transfer is normal.? Overall findings are consistent with nonspecific ventilatory limitation possibility of neuromuscular weakness.? Patient is a shallow breather and has kyphosis- -Counseled about avoidance of triggers-using HEPA filters/air purifier's in home, removing carpets if possible, using hypoallergenic bedsheets, pillow covers, couch covers, curtains to reduce trigger burden -Currently on Singulair 10 Mg daily, breztri 2 puffs daily and counseled to wash her mouth after every use; reported does not have to use albuterol as much and her breathing has improved -Encourage lifestyle modifications like small meals at dinner, at least 3 to 4 hours from last meal to bedtime, head end elevation while sleeping -She needs aggressive physical therapy because of overall deconditioning Discussed patient condition and management plan with patient herself, her husba nd and granddaughter, hospitalist taking care, RN and RT taking care of the patient I will not be available to see patient in person for the next 3 days; I will be available on phone call; I will follow-up with patient in pulmonary clinic after discharge Attestations Medical Necessity Statement*: Deferred to hospitalist Time Spent in Patient Care: Greater than 35 minutes (>than 50% of time spent in counselling and/or direct pt care on unit) . Critical Care Time: The high probability of a clinically significant, sudden or life threatening deterioration of the patient's [pulmonary, renal] system(s) required my full and direct attention, intervention and personal management. The critical care time is as shown. This time is in addition to time spent performing any reported procedures but includes the following: [x] Data and vital sign review and interpretation [x] Patient assessment, examination and intervention [x] Documentation [x] Medication orders and management Critical Care Time (min): 55 Coding Level of Care Code Acute Code for Chg Fwd Diagnoses Acute respiratory failure with hypoxia and hypercapnia J96.01; J96.02 Acute metabolic encephalopathy G93.41 Acute kidney injury superimposed on CKD N17.9; N18.9 Dysphagia R13.10 Diastolic heart failure I50.30 Pneumonia J18.9 Laterality: right Lung location: lower lobe of lung Pneumonia type: due to unspecified organism Time Spent (min) 55
--- NOTE | 2022-06-25 09:13 | XR_ITS ---
WS: [id number] EXAMINATION: XR chest 1V portable [id number] REASON FOR EXAM: pneumonia COMPARISON: Previous study. ORDER DATE: 06/25/2022 9:32 AM TECHNIQUE: A single, portable frontal chest x-ray was obtained. X-RAY FINDINGS: There is increased density of the right lower lobe/basal opacity. Now extending above the previous ba nd of atelectasis Postobstructive or aspiration process should be excluded. Left lung is grossly clear. /Mediastinum: Cardiac silhouette appears enlarged and stable. Left chest wall single chamber cardiac device remains in place. XR/XR chest 1V portable [id number] IMPRESSION: Changes are consistent with increased effusion on the right with ot her causes of consolidation contributing to the change not excluded. No current pulmonary vascular congestion.
--- NOTE | 2022-06-25 10:55 | PM.PN ---
Subjective Subjective: no new complaints Medications: Reviewed: Yes Vitals/I&O/Wt Last Vital Signs Temp 98.2 F 06/24/22 21:00 Pulse 80 06/25/22 09:00 Resp 23 H 06/25/22 09:00 BP 119/85 06/25/22 09:00 Pulse Ox 98 06/25/22 09:00 O2 Del Method Room Air 06/25/22 08:50 O2 Flow Rate 2 06/25/22 08:50 FiO2 21 06/25/22 02:32 06/24/22 06/25/22 06/25/22 22:59 06:59 14:59 Intake Total 501.5 / 501.5 420 / 921.5 350 / 350 Output Total 100 / 100 425 / 525 Balance 401.5 / 401.5 -5 / 396.5 350 / 350 Weight last 48 hrs Weight 88.632 kg Weight 88.904 kg Physical Exam Narrative: awake and alert no distress Urinary Catheter Management: Weber: Cath Placed During This Visit: yes Reason for Continuing Indwelling Catheter: Accurate Measurement of Urinary Output in Critically Ill Patients Urinary Catheter Date of Insertion: 06/22/22 Urinary Catheter Time of Insertion: 16:53 Data 06/25/22 02:34 06/25/22 02:34 A&P Assessment and plan (1) Acute kidney injury superimposed on CKD: Plan 1. Acute on chronic kidney disease stage III: Baseline creatinine in the mid 1 range, peak creatinine up to 2.1. Cr 1.9 today .. Has volume overload and was diuresed . -Hold lasix temporarily, C/w IV albumin , Noted U Na , U Cl - low. Renal US - unsuccessful. -2 g sodium restriction and 1500 mill fluid restriction. -Avoid nephrotoxins and IV contrast studies. -Patient sees occupational health physiotherapist as outpatient in [place] 2. Acute on chronic respiratory failure: Multifactorial, secondary to hypercapnia, CHF, 3. Hypokalemia: repleted 4. Hypertension: Blood pressure borderline low 5. Anemia: s/p Epogen Patient evaluated using audiovisual cart. Time spent 40 minutes Attestations Medical Necessity Statement*: per medicine team Coding Level of Care Code Acute Code for [facility] Fwd Diagnoses Acute kidney injury superimposed on CKD N17.9; N18.9
[2022-06-25 11:01] LABS: Glucose Point of Care 134 mg/dL (70-110)
--- NOTE | 2022-06-25 13:39 | PC.SOCIAL ---
Pg 2 IMM Explained to pt & her family, Pg 2 IMM. No questions voiced. Provided pt a copy. Initialed, dated, & timed a copy & placed in chart.
--- NOTE | 2022-06-25 17:27 | PM.PN ---
Subjective Subjective: Patient was seen and examined this morning, urine output is picking up, creatinine is slightly trended down to 1.9, was on BiPAP last night.Hemoglobin slightly dropped to 7.6 today as compared to 8 yesterday, x-ray chest done this morning has shown: increased density of the right lower lobe/basal opacity. Now extending above the previous band of atelectasis Postobstructive or aspiration process should be excluded. Left lung is grossly clear. Medications: Reviewed: Yes Medication Review Details: Generic Name Dose Route Start Last Admin Trade Name Freq PRN Reason Stop Dose Admin Albuterol/Ipratrop ium 3 ml 06/22/22 20:00 06/25/22 13:11 Ipratropium-Albu terol 3 Ml Neb INHALATION 3 ml Q6H.RESP KACEY Administration Ferrous Gluconate 324 mg 06/23/22 09:00 06/25/22 08:58 Ferrous Gluconat e 324 Mg Tablet PO 324 mg DAILY KACYE Administration Heparin Sodium (Po rcine) 5,000 unit 06/22/22 18:15 06/25/22 06:17 Heparin 5,000 Un it/Ml Inj 1 Ml SUBCUT 5,000 unit Q12H KACEY Administration Meropenem 250 mg/ Sodium 50 mls @ 100 mls/ hr 06/22/22 17:00 06/25/22 05:05 Chloride IV Infused Q12H KACEY Infusion Protocol Norepinephrine Bit artrate 4 mg 254 mls @ 0 mls/h r 06/22/22 18:30 06/24/22 19:00 / Dextrose IV Infused .Q0M KACEY Titration Protocol Per Protocol Lanolin 1 applic 06/23/22 08:58 06/23/22 09:07 Lanolin Oint 7 G m TOPICAL 1 applic PRN PRN Administration DRYNESS Multivitamins Ther apeutic 1 tab 06/22/22 21:00 06/24/22 20:00 Multivitamin The rapeutic Tablet PO 1 tab BEDTIME KACEY Administration Non-Formulary Medi cation 2 mg 06/22/22 21:00 06/24/22 20:00 Eszopiclone [Ant esta] PO Not Given BEDTIME KACEY Non-Formulary Medi cation 24 mcg 06/22/22 18:00 06/25/22 08:57 Lubiprostone [Am itiza] PO Not Given BID KACEY Pantoprazole Sodiu m 40 mg 06/22/22 18:00 06/25/22 05:38 Pantoprazole 40 Mg Sdv IVP 40 mg Q12H KACEY Administration Pregabalin 75 mg 06/23/22 09:00 06/25/22 08:58 Pregabalin 75 Mg Capsule PO 75 mg DAILY KACEY Administration Ropinirole HCl 2 mg 06/22/22 21:00 06/24/22 20:00 Ropinirole 2 Mg Tablet PO 2 mg BEDTIME KACEY Administration Senna 17.2 mg 06/23/22 06:00 06/25/22 06:19 Sennosides 8.6 M g Tablet PO 17.2 mg QAM KACEY Administration Senna 8.6 mg 06/22/22 18:00 06/23/22 17:13 Sennosides 8.6 M g Tablet PO Not Given QPM [facility] Vitals/I&O/Wt Last Vital Signs Temp 98.2 F 06/24/22 21:00 Pulse 82 06/25/22 16:00 Resp 22 H 06/25/22 16:00 BP 123/65 06/25/22 16:00 Pulse Ox 92 06/25/22 16:00 O2 Del Method BiPAP 06/25/22 13:05 O2 Flow Rate 2 06/25/22 08:50 FiO2 21 06/25/22 13:15 06/25/22 06/25/22 06/25/22 06:59 14:59 22:59 Intake Total 420 / 921.5 350 / 350 Output Total 425 / 525 Balance -5 / 396.5 350 / 350 Weight last 48 hrs Weight 88.632 kg Weight 88.904 kg Physical Exam Narrative: Currently she is alert awake, holding decent conversations. Const: COMMON NORMALS: patient oriented x3 HENMT: COMMON NORMALS: normocephalic and atraumatic HEAD & SCALP: normocephalic and atraumatic Resp: OTHER: Diminished air entry bilaterally Cardio: COMMON NORMALS: regular rate, regular rhythm, S1 normal heart sound present, S2 normal heart sound present, No gallops present (Cardio), No murmurs present (Cardio), No rub (Cardio) and Peripheral pulses 2+ throughout RATE: regular rate RHYTHM: regular rhythm HEART SOUNDS: S1 normal heart sound present and S2 normal heart sound present PERIPHERAL PULSES: Peripheral pulses 2+ throughout GI: COMMON NORMALS: Normal to inspection, nondistended, normoactive bowel sounds present, Soft to palpation, non-tender, No hepatosplenomegaly present and no masses AUSCULTATION: Yes normoactive bowel sounds PALPATION: Yes Soft to palpation and Yes No hepatosplenomegaly present RECTAL EXAM: deferred Extremity: COMMON NORMALS: no clubbing, cyanosis or edema and no pedal edema Neuro: COMMON NORMALS: patient oriented x3 Urinary Catheter Management: Weber: Cath Placed During This Visit: yes Reason for Continuing Indwelling Catheter: Accurate Measurement of Urinary Output in Critically Ill Patients Urinary Catheter Date of Insertion: 06/22/22 Urinary Catheter Time of Insertion: 16:53 Data 06/25/22 02:34 06/25/22 02:34 Micro: Microbiology 06/23/22 16:15 Urine Culture - Final Urine,Clean Catch A&P Assessment and plan (1) Acute respiratory failure with hypoxia and hypercapnia: (2) Pneumonia: Qualifiers: Laterality: right Lung location: lower lobe of lung Pneumonia type: due to unspecified organism Qualified Code(s): J18.9 - Pneumonia, unspecified organism (3) Urinary tract infection: Qualifiers: Hematuria presence: with hematuria Urinary tract infection type: acute cystitis Qualified Code(s): N30.01 - Acute cystitis with hematuria (4) HTN (hypertension): (5) Atrial fibrillation: (6) Diastolic heart failure: (7) Essential tremor: (8) Asthma: (9) Acute metabolic encephalopathy: (10) Hypokalemia: (11) Sepsis: Plan 82 year old female with past medical history of atrial fibrillation, heart failure with reduced ejection fraction, coronary artery disease, status post pacemaker, CKD stage III, COPD, came in today with chief complaint of worsening lethargy as well as shortness of breath. Assessment: Respiratory failure with hypoxia and hypercapnia: Likely secondary decompensated heart failure, possible underlying hospital-acquired pneumonia. CT chest without contrast:Bilateral right greater than left lower lobe airspace infiltrates,Large right and small left pleural effusions.Ascites in the upper abdomen. 2D Echo: Normal left ventricular size and systolic function, EF 47 %. No ?regional wall motion abnormalities. ?Moderate biatrial enlargement.?Possibly normal RV size and ejection fraction.?Thickened mitral valve. Mild mitral annular calcification. Mild?mitral valve regurgitation.?[id number] tricuspid valve regurgitation.?Estimated pulmonary artery peak systolic pressure 37 mmHg. There is no pericardial effusion. Ultrasound chest: Prominent right effusion,Small left pleural effusion. Blood culture: NTD Sputum Gram stain and culture Urine Legionella antigen: Negative Bacterial antigen panel: Negative MRSA PCR: Negative Lasix 40 I.V twice daily (currently on hold) Currently on broad-spectrum antibiotic Vanco and meropenem Continue BiPAP Continue DuoNebs S/p bronchoscopy: Supplemental oxygen as needed. Pulmonary medicine on board Possibly CKD versus ANI on CKD Admission serum creatinine is 1.9 Baseline serum creatinine appears to be around 1-1.6 Monitor BMP Avoid nephrotoxic's Monitor intake output charting. Nephrology on board Sepsis possibly secondary to pneumonia/ UTI: Patient currently meets sepsis criteria as she is hypothermic, has required transient vasopressor support in the form of Levophed. IV fluid bolus was avoided in the presence of decompensated heart failure. Plan as 1 Acute on chronic decompensated heart failure with reduced ejection fraction: Plan is 1 History of COPD: Plan as 1 Acute metabolic encephalopathy: Secondary to hypercapnic respiratory failure, UTI. CT head without contrast no acute intracranial pathology. Continue to monitor mentation Continue BiPAP continue antibiotics UTI: Follow urine culture Currently appropriately covered with broad-spectrum antibiotics Hypokalemia: Monitor and replace serum potassium. CODE STATUS:AND DVT prophylaxis: Attestations Medical Necessity Statement*: Needs to be in hospital for management of pneumonia. Coding Level of Care Code 13672 Diagnoses Acute respiratory failure with hypoxia and hypercapnia J96.01; J96.02 Pneumonia J18.9 Laterality: right Lung location: lower lobe of lung Pneumonia type: due to unspecified organism Urinary tract infection N30.01 Hematuria presence: with hematuria Urinary tract infection type: acute cystitis HTN (hypertension) I10 Atrial fibrillation I48.91 Diastolic heart failure I50.30 Essential tremor G25.0 Asthma J45.909 Acute metabolic encephalopathy G93.41 Hypokalemia E87.6 Sepsis A41.9
[2022-06-25] MEDS: sennosides 8.6 mg Tablet PO (17:44)
[2022-06-25 18:32] LABS: Basophils # 0.1 10^3/uL (0.0-0.1); Basophils % 1.1 %; Eosinophils # 0.1 10^3/uL (0.0-0.8); Eosinophils % 1.5 %; Hematocrit 25.5 % (37.0-47.0); Hemoglobin 7.6 g/dL (11.5-15.3); Lymphocytes # 1.1 10^3/uL (0.8-4.8); Lymphocytes % 24.2 %; Mean Corpuscular HGB Conc 29.8 g/dL (30.0-36.0); Mean Corpuscular Volume 97.3 fl (81-99); Mean Platelet Volume 12.2 fL (7.4-10.4); Monocytes # 0.4 10^3/uL (0.2-0.9); Monocytes % 8.4 %; Neutrophils # 2.94 10^3/uL (1.8-7.7); Neutrophils % 64.6 %; Nucleated Red Blood Cells % 0 %; Platelet Count 163 10^3/cmm (130-400); Red Blood Count 2.62 10^6/uL (4.1-5.3); Red Cell Distribution Width 17.2 % (12.1-15.1); White Blood Count 4.6 10^3/uL (4.0-10.0)
--- NOTE | 2022-06-25 18:49 | PC.NURSE ---
shift summary: uneventful shift, up with 1 assist during shift. no issues or concerns expressed
[2022-06-25] MEDS: sodium chloride 3.5% neb 4 mL Neb INHALATION (19:43)
[2022-06-25] MEDS: multivitamin therapeutic Tablet 1 TAB PO (21:15)
[2022-06-25] MEDS: ropinirole 2 mg Tablet PO (21:15)
[2022-06-26] VITALS (31 sets, daily range): BP systolic 108–152; BP diastolic 66–104; PULSE 80; RESP 15–31; TEMP 35.8–36.1; O2SAT 88–100; BMI 32.5
[2022-06-26] MEDS: ipratropium-albuterol 3 mL Neb INHALATION ×4 (01:38→20:20)
[2022-06-26] MEDS: sennosides 8.6 mg Tablet 17.2 MG PO (05:50)
[2022-06-26] MEDS: heparin 5,000 unit/mL INJ 1 mL 5000 UNIT SUBCUT ×2 (05:52→17:48)
[2022-06-26] MEDS: pantoprazole 40 mg SDV IVP ×2 (05:56→17:47)
[2022-06-26] MEDS: sodium chloride 3.5% neb 4 mL Neb INHALATION ×2 (07:50→20:20)
[2022-06-26] MEDS: ferrous gluconate 324 mg Tablet PO (08:10)
[2022-06-26] MEDS: pregabalin 75 mg Capsule PO (08:10)
[2022-06-26 10:50] LABS: Basophils # 0.1 10^3/uL (0.0-0.1); Basophils % 1.3 %; Eosinophils # 0.1 10^3/uL (0.0-0.8); Hematocrit 26.2 % (37.0-47.0); Hemoglobin 7.7 g/dL (11.5-15.3); Lymphocytes # 1.1 10^3/uL (0.8-4.8); Lymphocytes % 23.5 %; Mean Corpuscular HGB Conc 29.4 g/dL (30.0-36.0); Mean Corpuscular Hemoglobin 28.6 pg (28.0-34.0); Mean Corpuscular Volume 97.4 fl (81-99); Mean Platelet Volume 11.4 fL (7.4-10.4); Monocytes # 0.4 10^3/uL (0.2-0.9); Monocytes % 7.8 %; Neutrophils # 2.98 10^3/uL (1.8-7.7); Nucleated Red Blood Cells % 0 %; Platelet Count 144 10^3/cmm (130-400); Red Blood Count 2.69 10^6/uL (4.1-5.3); Red Cell Distribution Width 17.3 % (12.1-15.1); White Blood Count 4.6 10^3/uL (4.0-10.0)
[2022-06-26 11:09] LABS: Alanine Aminotransferase 11 U/L (0-33); Alkaline Phosphatase 99 U/L (35-105); Anion Gap 14.6 (5-19); Aspartate Amino Transferase 20 U/L (0-32); Blood Urea Nitrogen 35 mg/dL (8-23); Calcium 8.5 mg/dL (8.5-10.5); Carbon Dioxide 31 mmol/L (22-29); Chloride 98 mmol/L (98-107); Globulin 2.6 g/dL (1.3-4.6); Glucose 113 mg/dL (65-115); Osmolality Calculated 299 mOsm/kg (285-295); Potassium 3.6 mmol/L (3.5-5.1); Sodium 140 mmol/L (136-145); Total Bilirubin 0.7 mg/dL (0.15-1.2); Total Protein 6.6 g/dL (6.6-8.7)
--- NOTE | 2022-06-26 13:14 | P.PN_ITS ---
Subjective Subjective: no new complaints Medications: Reviewed: Yes Vitals/I&O/Wt Last Vital Signs Temp 96.5 F L 06/26/22 07:00 Pulse 80 06/26/22 13:12 Resp 25 H 06/26/22 13:12 BP 121/100 06/26/22 12:00 Pulse Ox 93 06/26/22 13:12 O2 Del Method BiPAP 06/26/22 13:12 O2 Flow Rate 2 06/25/22 08:50 FiO2 21 06/26/22 13:12 06/25/22 06/26/22 06/26/22 22:59 06:59 14:59 Intake Total 50 / 400 678.5 / 1078.5 Output Total 275 / 275 0 / 275 Balance -225 / 125 678.5 / 803.5 Weight last 48 hrs Weight 88.904 kg Weight 88.632 kg Physical Exam Narrative: awake and alert no distress Urinary Catheter Management: Weber: Cath Placed During This Visit: yes Reason for Continuing Indwelling Catheter: Accurate Measurement of Urinary Output in Critically Ill Patients Urinary Catheter Date of Insertion: 06/22/22 Urinary Catheter Time of Insertion: 16:53 Data 06/26/22 10:42 06/26/22 10:42 Micro: Microbiology 06/24/22 13:36 Gram Stain - Final Lung Right Lower Lobe Bronchial Washings Culture - Preliminary 06/23/22 16:15 Urine Culture - Final Urine,Clean Catch A&P Assessment and plan (1) Acute kidney injury superimposed on CKD: Plan 1. Acute on chronic kidney disease stage III: Baseline creatinine in the mid 1 r demetria, peak creatinine up to 2.1. Cr 1.5 today .. Has volume overload and was diuresed . -Held lasix temporarily, s/p IV albumin , Noted U Na , U Cl - low. Renal US - unsuccessful. - will resume lasix 40 mg daily -2 g sodium restriction and 1500 mill fluid restriction. -Avoid nephrotoxins and IV contrast studies. 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 Acute on chronic respiratory failure: Multifactorial, secondary to hypercapnia, CHF, 3. Hypokalemia: repleted 4. Hypertension: Blood pressure borderline low 5. Anemia: s/p Epogen Patient evaluated using audiovisual cart. Time spent 40 minutes Attestations 2 Medical Necessity Statement*: Needs to be in hospital for management of pneumonia. Coding Level of Care Code Acute Code for Chg Fwd Diagnoses Acute kidney injury superimposed on CKD N17.9; N18.9
--- NOTE | 2022-06-26 15:02 | P.PN_ITS ---
Subjective Subjective: Patient was seen and examined this morning, serum creatinine is improving, current plan is to resume p.o. Lasix 40 mg daily. Medications: Reviewed: Yes Medication Review Details: Generic Name Dose Route Start Last Admin Trade Name Freq PRN Reason Stop Dose Admin Albuterol/Ipratrop ium 3 ml 06/22/22 20:00 06/26/22 13:12 Ipratropium-Albu terol 3 Ml Neb INHALATION 3 ml Q6H.RESP KACEY Administration Ferrous Gluconate 324 mg 06/23/22 09:00 06/26/22 08:10 Ferrous Gluconat e 324 Mg Tablet PO 324 mg DAILY KACEY Administration Heparin Sodium (Po rcine) 5,000 unit 06/22/22 18:15 06/26/22 05:52 Heparin 5,000 Un it/Ml Inj 1 Ml SUBCUT 5,000 unit Q12H KACEY Administration Norepinephrine Bit artrate 4 mg 254 mls @ 0 mls/h r 06/22/22 18:30 06/24/22 19:00 / Dextrose IV Infused .Q0M KACEY Titration Protocol Per Protocol Lanolin 1 applic 06/23/22 08:58 06/23/22 09:07 Lanolin Oint 7 G m TOPICAL 1 applic PRN PRN Administration DRYNESS Multivitamins Ther apeutic 1 tab 06/22/22 21:00 06/25/22 21:15 Multivitamin The rapeutic Tablet PO 1 tab BEDTIME KACEY Administration Non-Formulary Medi cation 2 mg 06/22/22 21:00 06/25/22 21:13 Eszopiclone [Ant esta] PO Not Given BEDTIME KACEY Non-Formulary Medi cation 24 mcg 06/22/22 18:00 06/26/22 08:10 Lubiprostone [Am itiza] PO Not Given BID KACEY Pantoprazole Sodiu m 40 mg 06/22/22 18:00 06/26/22 05:56 Pantoprazole 40 Mg Sdv IVP 40 mg Q12H KACEY Administration Pregabalin 75 mg 06/23/22 09:00 06/26/22 08:10 Pregabalin 75 Mg Capsule PO 75 mg DAILY KACEY Administration Ropinirole HCl 2 mg 06/22/22 21:00 06/25/22 21:15 Ropinirole 2 Mg Tablet PO 2 mg BEDTIME KACEY Administration Senna 17.2 mg 06/23/22 06:00 06/26/22 05:50 Sennosides 8.6 M g Tablet PO 17.2 mg QAM KACEY Administration Senna 8.6 mg 06/22/22 18:00 06/25/22 17:44 Sennosides 8.6 M g Tablet PO 8.6 mg QPM KACEY Administration Sodium Chloride 4 ml 06/25/22 20:00 06/26/22 07:50 Sodium Chloride 3.5% Neb 4 Ml Neb INHALATION 4 ml BID.RESPIRATORY S CH Administration Vitals/I&O/Wt Last Vital Signs Temp 96.5 F L 06/26/22 07:00 Pulse 80 06/26/22 14:00 Resp 25 H 06/26/22 13:12 BP 121/100 06/26/22 12:00 Pulse Ox 93 06/26/22 13:14 O2 Del Method BiPAP 06/26/22 13:12 O2 Flow Rate 2 06/25/22 08:50 FiO2 21 06/26/22 13:14 06/26/22 06/26/22 06/26/22 06:59 14:59 22:59 Intake Total 678.5 / 1078.5 Output Total 0 / 275 Balance 678.5 / 803.5 Weight last 48 hrs Weight 88.904 kg Weight 88.632 kg Physical Exam Narrative: Currently she is alert awake, holding decent conversations. Const: COMMON NORMALS: patient oriented x3 HENMT: COMMON NORMALS: normocephalic and atraumatic HEAD & SCALP: normocephalic and atraumatic Resp: OTHER: Diminished air entry bilaterally Cardio: COMMON NORMALS: regular rate, regular rhythm, S1 normal heart sound present, S2 normal heart sound present, No gallops present (Cardio), No murmurs present (Cardio), No rub (Cardio) and Peripheral pulses 2+ throughout RATE: regular rate RHYTHM: regular rhythm HEART SOUNDS: S1 normal heart sound present and S2 normal heart sound present PERIPHERAL PULSES: Peripheral pulses 2+ throughout GI: COMMON NORMALS: Normal to inspection, nondistended, normoactive bowel sounds present, Soft to palpation, non-tender, No hepatosplenomegaly present and no masses AUSCULTATION: Yes normoactive bowel sounds PALPATION: Yes Soft to palpation and Yes No hepatosplenomegaly present RECTAL EXAM: deferred Extremity: COMMON NORMALS: no clubbing, cyanosis or edema and no pedal edema Neuro: COMMON NORMALS: patient oriented x3 Urinary Catheter Management: Weber: Cath Placed During This Visit: yes Reason for Continuing Indwelling Catheter: Accurate Measurement of Urinary Output in Critically Ill Patients Urinary Catheter Date of Insertion: 06/22/22 Urinary Catheter Time of Insertion: 16:53 Data 06/26/22 10:42 06/26/22 10:42 Micro: Microbiology 06/24/22 13:36 Gram Stain - Final Lung Right Lower Lobe Bronchial Washings Culture - Final Yeast 06/23/22 16:15 Urine Culture - Final Urine,Clean Catch A&P Assessment and plan (1) Acute respiratory failure with hypoxia and hypercapnia: (2) Pneumonia: Qualifiers: Laterality: right Lung location: lower lobe of lung Pneumonia type: due to unspecified organism Qualified Code(s): J18.9 - Pneumonia, unspecified organism (3) Urinary tract infection: Qualifiers: Hematuria presence: with hematuria Urinary tract infection type: acute cystitis Qualified Code(s): N30.01 - Acute cystitis with hematuria (4) HTN (hypertension): (5) Atrial fibrillation: (6) Diastolic heart failure: (7) Essential tremor: (8) Asthma: (9) Acute metabolic encephalopathy: (10) Hypokalemia: (11) Sepsis: Plan 82 year old female with past medical history of atrial fibrillation, heart failure with reduced ejection fraction, coronary artery disease, status post pacemaker, CKD stage III, COPD, came in today with chief complaint of worsening lethargy as well as shortness of breath. Assessment: Respiratory failure with hypoxia and hypercapnia: Likely secondary decompensated heart failure, possible underlying hospital-acquired pneumonia. CT chest without contrast:Bilateral right greater than left lower lobe airspace infiltrates,Large right and small left pleural effusions.Ascites in the upper abdomen. 2D Echo: Normal left ventricular size and systolic function, EF 47 %. No ?regional wall motion abnormalities. ?Moderate biatrial enlargement.?Possibly normal RV size and ejection fraction.?Thickened mitral valve. Mild mitral annular calcification. Mild?mitral valve regurgitation.?[id number] tricuspid valve regurgitation.?Estimated pulmonary artery peak systolic pressure 37 mmHg. There is no pericardial effus ion. Ultrasound chest: Prominent right effusion,Small left pleural effusion. Blood culture: NTD Sputum Gram stain and culture Urine Legionella antigen: Negative Bacterial antigen panel: Negative MRSA PCR: Negative Lasix 40 I.V twice daily (currently on hold) Currently on broad-spectrum antibiotic Vanco and meropenem Continue BiPAP Continue DuoNebs S/p bronchoscopy: For airway evaluation to rule out any underlying endobronchial mass. Supplemental oxygen as needed. Pulmonary medicine on board Possibly CKD versus ANI on CKD Admission serum creatinine is 1.9 Baseline serum creatinine appears to be around 1-1.6 Monitor BMP Avoid nephrotoxic's Monitor intake output charting. Nephrology on board Sepsis possibly secondary to pneumonia/ UTI: Patient currently meets sepsis criteria as she is hypothermic, has required transient vasopressor support in the form of Levophed. IV fluid bolus was avoided in the presence of decompensated heart failure. Plan as 1 Acute on chronic decompensated heart failure with reduced ejection fraction: Plan is 1 History of COPD: Plan as 1 Acute metabolic encephalopathy: Secondary to hypercapnic respiratory failure, UTI. CT head without contrast no acute intracranial pathology. Continue to monitor mentation Continue BiPAP continue antibiotics UTI: Follow urine culture Currently appropriately covered with broad-spectrum antibiotics Hypokalemia: Monitor and replace serum potassium. CODE STATUS:AND DVT prophylaxis: Attestations Medical Necessity Statement*: Patient needs to be in hospital for IV antibiotics. Coding Level of Care Code 55887 Diagnoses Acute respiratory failure with hypoxia and hypercapnia J96.01; J96.02 Pneumonia J18.9 Laterality: right Lung location: lower lobe of lung Pneumonia type: due to unspecified organism Urinary tract infection N30.01 Hematuria presence: with hematuria Urinary tract infection type: acute cystitis HTN (hypertension) I10 Atrial fibrillation I48.91 Diastolic heart failure I50.30 Essential tremor G25.0 Asthma J45.909 Acute metabolic encephalopathy G93.41 Hypokalemia E87.6 Sepsis A41.9
[2022-06-26] MEDS: vancomycin 1,500 MG/300 ML PIGGYBACK 200 MG IV (16:49)
[2022-06-26] MEDS: meropenem 500 MG in sodium chloride 0.9% (plus) 50 ML 100 MG IV (17:47)
[2022-06-26] MEDS: sennosides 8.6 mg Tablet PO (17:48)
[2022-06-26] MEDS: ropinirole 2 mg Tablet PO (21:14)
[2022-06-26] MEDS: multivitamin therapeutic Tablet 1 TAB PO (21:14)
[2022-06-27] VITALS (29 sets, daily range): BP systolic 101–134; BP diastolic 65–83; PULSE 80–81; RESP 14–31; TEMP 36.1; O2SAT 89–100
[2022-06-27] MEDS: ipratropium-albuterol 3 mL Neb INHALATION (02:46)
[2022-06-27 04:16] LABS: Basophils # 0.1 10^3/uL (0.0-0.1); Basophils % 1.7 %; Eosinophils # 0.1 10^3/uL (0.0-0.8); Eosinophils % 3.3 %; Hematocrit 25.9 % (37.0-47.0); Hemoglobin 7.5 g/dL (11.5-15.3); Lymphocytes # 1.2 10^3/uL (0.8-4.8); Lymphocytes % 29.5 %; Mean Corpuscular Hemoglobin 28.5 pg (28.0-34.0); Mean Corpuscular Volume 98.5 fl (81-99); Mean Platelet Volume 12.6 fL (7.4-10.4); Monocytes # 0.4 10^3/uL (0.2-0.9); Monocytes % 8.3 %; Neutrophils # 2.39 10^3/uL (1.8-7.7); Nucleated Red Blood Cells % 0.5 %; Platelet Count 168 10^3/cmm (130-400); Red Blood Count 2.63 10^6/uL (4.1-5.3); Red Cell Distribution Width 17.4 % (12.1-15.1); White Blood Count 4.2 10^3/uL (4.0-10.0)
[2022-06-27 04:44] LABS: Alanine Aminotransferase 11 U/L (0-33); Albumin Level 3.7 g/dL (3.5-5.2); Alkaline Phosphatase 105 U/L (35-105); Anion Gap 12.6 (5-19); Aspartate Amino Transferase 22 U/L (0-32); Blood Urea Nitrogen 33 mg/dL (8-23); Calcium 8.7 mg/dL (8.5-10.5); Carbon Dioxide 30 mmol/L (22-29); Chloride 96 mmol/L (98-107); Globulin 2.8 g/dL (1.3-4.6); Glucose 101 mg/dL (65-115); Osmolality Calculated 287 mOsm/kg (285-295); Potassium 3.6 mmol/L (3.5-5.1); Sodium 135 mmol/L (136-145); Total Bilirubin 0.7 mg/dL (0.15-1.2); Total Protein 6.5 g/dL (6.6-8.7)
[2022-06-27] MEDS: sennosides 8.6 mg Tablet 17.2 MG PO (05:16)
[2022-06-27] MEDS: pantoprazole 40 mg SDV IVP ×2 (05:16→17:41)
[2022-06-27] MEDS: meropenem 500 MG in sodium chloride 0.9% (plus) 50 ML 100 MG IV ×2 (05:16→17:41)
[2022-06-27] MEDS: heparin 5,000 unit/mL INJ 1 mL 5000 UNIT SUBCUT ×2 (05:16→17:41)
[2022-06-27] MEDS: pregabalin 75 mg Capsule PO (08:07)
[2022-06-27] MEDS: FUROsemide 40 mg Tablet PO (08:07)
[2022-06-27] MEDS: ferrous gluconate 324 mg Tablet PO (08:07)
[2022-06-27] MEDS: ipratropium 0.5 mg/2.5 mL Neb INHALATION ×3 (09:03→20:12)
[2022-06-27] MEDS: sodium chloride 3.5% neb 4 mL Neb INHALATION ×2 (09:03→20:12)
[2022-06-27 09:40] LABS: Cortisol Random 10.92 ug/dL (2.47-19.5)
--- NOTE | 2022-06-27 10:03 | P.DS_ITS ---
Discharge Providers Date of Admission: 06/22/22 15:12 Date of Discharge: June 27, 2022 Attending Provider at Admission: Abilio Maurer MD Attending Provider at Discharge: Abilio Maurer MD Primary Care Provider: Neeraj Cardoza MD Diagnoses at Discharge Discharge Diagnosis (1) Acute respiratory failure with hypoxia and hypercapnia: Status: Acute (2) Pneumonia: Status: Acute Qualifiers: Laterality: right Lung location: lower lobe of lung Pneumonia type: due to unspecified organism Qualified Code(s): J18.9 - Pneumonia, unspecified organism (3) Urinary tract infection: Status: Acute Qualifiers: Hematuria presence: with hematuria Urinary tract infection type: acute cystitis Qualified Code(s): N30.01 - Acute cystitis with hematuria (4) HTN (hypertension): Status: Acute (5) Atrial fibrillation: Status: Acute (6) Diastolic heart failure: Status: Acute (7) Essential tremor: Status: Acute (8) Asthma: Status: Acute (9) Acute metabolic encephalopathy: Status: Acute (10) Hypokalemia: Status: Acute (11) Sepsis: Status: Acute Reason for Visit Reason for Visit: LETHARGIC/ TROUBLE BREATHING Physical Exam Urinary Catheter Management: Weber: Cath Placed During This Visit: yes Reason for Continuing Indwelling Catheter: Accurate Measurement of Urinary Output in Critically Ill Patients Urinary Catheter Date of Insertion: 06/22/22 Urinary Catheter Time of Insertion: 16:53 Discharge Data Studies Completed and Pending Completed Studies During Hospitalization Category Date Time Status CT chest wo con [id number] Routine Cat Scan 06/22/22 15:[address] head wo con* [id number] Stat Cat Scan 06/22/22 11:40 Completed XR chest 1V portable [id number] Routine Exams 06/24/22 08:18 Completed XR chest 1V portable [id number] Routine Exams 06/25/22 09:13 Completed XR chest 1V portable [id number] Stat Exams 06/22/22 11:03 Completed Pathology: Surgical [PTH] Routine Pth 06/24/22 13:55 Completed CV. echo complete* [id number] Routine Ultrasound 06/22/22 15:28 Com[place] chest [id number] Routine Ultrasound 06/23/22 07:57 Completed US renal BI* [id number] Routine Ultrasound 06/23/22 10:55 Completed Pending at discharge Category Date Time Status Blood Culture Stat Lab 06/22/22 12:40 Results CBC Auto Diff [Complete Blood Count w/Auto] AM LABS Lab 06/28/22 04:00 Ordered CMP [Comprehensive Metabolic Panel] AM LABS Lab 06/28/22 04:00 Ordered Sputum Culture and Gram Stain Routine Lab 06/22/22 15:21 Uncollected TSH [Thyroid Stimulating Hormone] Routine Lab 06/27/22 03:58 Received Cytology [PTH] Routine Pth 06/24/22 13:45 Received Radiology Impressions Head CT 06/22/22 11:40 IMPRESSION: 1. No evidence of intracranial hemorrhage or mass effect. 2. Mild small vessel changes. Mild parenchymal volume loss. 3. Vascular calcification. 4. No acute intracranial findings. Chest CT 06/22/22 15:21 IMPRESSION: 1. Bilateral right greater than left lower lobe airspace infiltrates. 2. Ascending thoracic aorta dilated to 4.7 cm. 3. Cardiomegaly. 4. Coronary artery atherosclerotic calcifications. 5. Large right and small left pleural effusions. 6. Ascites in the upper abdomen. 7. Right kidney cyst, negative for follow-up advised. COMMENTS: Consistent with the [employer]'s Incidental Findings Committee white paper (J Am Lucinda Radiol 2018): Any incidental renal lesion less than 1 cm or classified as too small to characterize, or any incidental cystic renal lesion characterized as simple-appearing, is likely benign. No follow-up imaging is recommended for these lesions per consensus recommendations based on imaging criteria. Chest Ultrasound 06/23/22 07:57 IMPRESSION: Prominent right effusion Small left pleural effusion The effusions are better visualized calibrated on recent CT imaging of the chest dated 06/22/2022 Renal Ultrasound 06/23/22 10:55 IMPRESSION: Unable to image kidneys due to patient condition Chest X-Ray 06/25/22 09:13 IMPRESSION: Changes are consistent with increased effusion on the right with other causes of consolidation contributing to the change not excluded. No current pulmonary vascular congestion. Laboratory Results WBC 4.2 10^3/uL (4.0-10.0) 06/27/22 03:58 RBC 2.63 10^6/uL (4.1-5.3) L 06/27/22 03:58 Hgb 7.5 g/dL (11.5-15.3) L 06/27/22 03:58 Hct 25.9 % (37.0-47.0) L 06/27/22 03:58 MCV 98.5 fl (81-99) 06/27/22 03:58 MCH 28.5 pg (28.0-34.0) 06/27/22 03:58 MCHC 29.0 g/dL (30.0-36.0) L 06/27/22 03:58 RDW 17.4 % (12.1-15.1) H 06/27/22 03:58 Plt Count 168 10^3/cmm (130-400) 06/27/22 03:58 MPV 12.6 fL (7.4-10.4) H 06/27/22 03:58 Neut % (Auto) 57.0 % 06/27/22 03:58 Lymph % (Auto) 29.5 % 06/27/22 03:58 [place] % (Auto) 8.3 % 06/27/22 03:58 Eos % (Auto) 3.3 % 06/27/22 03:58 Baso % (Auto) 1.7 % 06/27/22 03:58 Neut # (Auto) 2.39 10^3/uL (1.8-7.7) 06/27/22 03:58 Lymph # (Auto) 1.2 10^3/uL (0.8-4.8) 06/27/22 03:58 [place] # (Auto) 0.4 10^3/uL (0.2-0.9) 06/27/22 03:58 Eos # (Auto) 0.1 10^3/uL (0.0-0.8) 06/27/22 03:58 Baso # (Auto) 0.1 10^3/uL (0.0-0.1) 06/27/22 03:58 Nucleated RBC % (auto) 0.5 % 06/27/22 03:58 Nucleated RBCs # 0.0 /100WBC 06/27/22 03:58 PT 16.30 SECONDS (12.1-14.9) H 06/23/22 08:24 INR 1.27 (0.8-1.2) H 06/23/22 08:24 Specimen Type Arterial 06/24/22 09:29 Sample Site Radial, left 06/24/22 09:29 ABG pH 7.30 (7.35-7.45) L 06/24/22 09:29 ABG pCO2 67.4 mmHg (35-45) H* 06/24/22 09:29 ABG pO2 106.0 mmHg (80.0-100.0) H 06/24/22 09:29 ABG HCO3 32.9 mmol/L (22-26) H 06/24/22 09:29 ABG O2 Saturation 98.8 06/24/22 09:29 ABG Base Excess 5.5 mmol/L (-2.0-2.0) H 06/24/22 09:29 Ernesto Test Pos 06/24/22 09:29 A-a O2 Gradient 1.8 mmHg (5-10) L 06/24/22 09:29 Hematocrit 23.6 % (37-47) L 06/24/22 09:29 Hgb O2 Saturation 97.1 % (95-100) 06/24/22 09:29 Carboxyhemoglobin 1.5 %THgb (0.4-20.1) 06/24/22 09:29 Methemoglobin 0.2 % (0.4-1.5) L 06/24/22 09:29 Total Hemoglobin 7.7 g/dL (12-16) L 06/24/22 09:29 Sodium 141.0 mmol/L (131-143) 06/24/22 09:29 Potassium 3.4 mmol/L (3.5-5.0) L 06/24/22 09:29 Glucose 100.0 mg/dL (70-115) 06/24/22 09:29 Ionized Calcium 1.2 mmol/L (1.1-1.4) 06/24/22 09:29 O2 Delivery Device Nc 06/24/22 09:29 O2 Liters/Min 2.0 % 06/24/22 09:29 FiO2 28.0 % 06/24/22 09:29 PEEP 8.0 cmH20 06/22/22 15:09 Corporate Representative ID Cak 06/24/22 09:29 Sodium 135 mmol/L (136-145) L 06/27/22 03:58 Potassium 3.6 mmol/L (3.5-5.1) 06/27/22 03:58 Chloride 96 mmol/L (98-107) L 06/27/22 03:58 Carbon Dioxide 30 mmol/L (22-29) H 06/27/22 03:58 Anion Gap 12.6 (5-19) 06/27/22 03:58 BUN 33 mg/dL (8-23) H 06/27/22 03:58 Creatinine 1.3 mg/dL (0.5-0.9) H 06/27/22 03:58 GFR Calculation Not Reportable 06/27/22 03:58 Glucose 101 mg/dL (65-115) 06/27/22 03:58 POC Glucose 134 mg/dL (70-110) H 06/25/22 10:59 Calculated Osmolality 287 mOsm/kg (285-295) 06/27/22 03:58 Lactic Acid 2.1 mmol/L (0.5-2.2) 06/22/22 11:00 Lactic Acid (Sepsis) 1.8 mmol/L (0.5-2.2) 06/22/22 14:00 Calcium 8.7 mg/dL (8.5-10.5) 06/27/22 03:58 Magnesium 1.7 mg/dL (1.7-2.3) 06/23/22 04:29 Total Bilirubin 0.7 mg/dL (0.15-1.2) 06/27/22 03:58 AST 22 U/L (0-32) 06/27/22 03:58 ALT 11 U/L (0-33) 06/27/22 03:58 Alkaline Phosphatase 105 U/L (35-105) 06/27/22 03:58 NT-Pro-B Natriuret Pep 2703 pg/mL (0-450) H 06/22/22 10:15 Total Protein 6.5 g/dL (6.6-8.7) L 06/27/22 03:58 Albumin 3.7 g/dL (3.5-5.2) 06/27/22 03:58 Globulin 2.8 g/dL (1.3-4.6) 06/27/22 03:58 Procalcitonin 0.16 ng/mL (0-0.5) 06/23/22 04:29 Random Cortisol 10.92 ug/dL (2.47-19.5) 06/27/22 03:58 Urine Color Yellow (Yellow) 06/22/22 11:35 Urine Appearance Hazy (CLEAR) A 06/22/22 11:35 Urine pH 5 (5-7) 06/22/22 11:35 Ur Specific [place] 1.025 (1.005-1.030) 06/22/22 11:35 Urine Protein 3+ (Negative) H 06/22/22 11:35 Urine Glucose (UA) Norm (Normal) 06/22/22 11:35 Urine Ketones 1+ (Negative) H 06/22/22 11:35 Urine Blood 3+ (Negative) H 06/22/22 11:35 Urine Nitrate Positive (Negative) H 06/22/22 11:35 Urine Bilirubin 1+ (Negative) H 06/22/22 11:35 Urine Urobilinogen 1+ mg/dL (Negative) H 06/22/22 11:35 Ur Leukocyte Esterase 1+ (Negative) H 06/22/22 11:35 Urine RBC 15-25 /hpf (0-2) H 06/22/22 11:35 Urine WBC 5-10 /hpf (0-5) H 06/22/22 11:35 Ur Squamous Epith Cells 10-15 /hpf (0-5) H 06/22/22 11:35 Amorphous Sediment 2+ /hpf 06/22/22 11:35 Urine Bacteria 2+ /hpf (NONE) H 06/22/22 11:35 Ur Random Sodium 17 mmol/L 06/23/22 16:15 Ur Random Chloride 10 mmol/L 06/23/22 16:15 Nasal Influ A H1 2008 PCR Not detected (NOT DETECT) 06/22/22 12:55 Bronch Specimen Source Right lower lobe 06/24/22 13:36 Bronchial Fluid Color Slight pink 06/24/22 13:36 Bronchial Fluid Appearance Cloudy (CLEAR) 06/24/22 13:36 Bronchial Fluid WBC 98 /uL 06/24/22 13:36 Bronchial Fluid RBC 2 10^3/uL 06/24/22 13:36 Bronch Cells Counted 200 06/24/22 13:36 Bronchial Neutrophils 70.00 % (0.9-2.3) H 06/24/22 13:36 Bronchial Lymphocytes 12.00 % (10.71-12.91) 06/24/22 13:36 Bronchial Macrophages 18.00 % (83.6-86.8) L 06/24/22 13:36 Bronchial Diff Comment Yes 06/24/22 13:36 Adenovirus (PCR) Not detected (NOT DETECT) 06/22/22 12:55 C. pneumoniae DNA (PCR) Not detected (NOT DETECT) 06/22/22 12:55 Coronavirus 229E (PCR) Not detected (NOT DETECT) 06/22/22 12:55 Human Metapneumovir PCR Not detected (NOT DETECT) 06/22/22 12:55 Influenza A (H1) PCR Not detected (NOT DETECT) 06/22/22 12:55 Influenza A (H3) PCR Not detected (NOT DETECT) 06/22/22 12:55 Influenza Type A (PCR) Not detected (NOT DETECT) 04 12:55 Influenza Type B (PCR) Not detected (NOT DETECT) 06/22/22 12:55 M. pneumoniae (PCR) Not detected (NOT DETECT) 06/22/22 12:55 Parainfluenza 1 (PCR) Not detected (NOT DETECT) 06/22/22 12:55 Parainfluenza 2 (PCR) Not detected (NOT DETECT) 06/22/22 12:55 Parainfluenza 3 (PCR) Not detected (NOT DETECT) 06/22/22 12:55 Parainfluenza 4 (PCR) Not detected (NOT DETECT) 06/22/22 12:55 RSV Type A (PCR) Not detected (NOT DETECT) 06/22/22 12:55 RSV Type B (PCR) Not detected (NOT DETECT) 06/22/22 12:55 Entero/Rhino (PCR) Not detected (NOT DETECT) 06/22/22 12:55 SARS-CoV-2 (PCR) Not detected (NOT DETECT) 06/22/22 12:55 Vitals Last Vital Signs Temp 97.0 F L 06/26/22 22:59 Pulse 80 06/27/22 09:12 Resp 15 06/27/22 09:00 BP 112/75 06/27/22 08:00 Pulse Ox 92 06/27/22 09:00 O2 Del Method Room Air 06/27/22 09:00 O2 Flow Rate 2 06/25/22 08:50 FiO2 21 06/27/22 02:40 Discharge Plan Discharge Patient Disposition: Home Condition: Stable Prescriptions: New levofloxacin 750 mg tablet 750 mg PO Q48H 14 Days Qty: 7 0RF Continued Amitiza 24 mcg capsule 24 mcg PO BID multivitamin Tablet 1 tab PO BEDTIME eszopiclone [Lunesta] 2 mg tablet 2 mg PO BEDTIME hydrocodone-acetaminophen 5-325 mg tablet 1 tab PO BID PRN (Reason: Pain) Breztri Aerosphere 160-9-4.8 mcg/actuation HFA aerosol inhaler 2 inh inhalation BID ropinirole 2 mg tablet 2 mg PO BEDTIME furosemide 40 mg tablet 40 mg PO DAILY levalbuterol tartrate [Xopenex HFA] 45 mcg/actuation HFA aerosol inhaler 2 inh inhalation Q6H Qty: 15 3RF guaifenesin [Mucinex Fast-Max Chest-Congest] 100 mg/5 mL liquid 200 mg PO Q4H PRN (Reason: cough) Qty: 473 3RF metoprolol succinate 25 mg tablet extended release 24 hr 25 mg PO DAILY Qty: 90 3RF lansoprazole [Prevacid] 30 mg capsule,delayed release(DR/EC) 30 mg PO BID Qty: 180 3RF montelukast [Singulair] 10 mg tablet 10 mg PO DAILY Qty: 30 5RF sennosides [senna] 8.6 mg Tablet See Rx Instructions .ROUTE .COMPLEX Rx Instructions: 17.2 mg orally in the morning / 8.6 mg orally in the evening PreserVision AREDS-2 250-90-40-1 mg Capsule 1 tab PO BID ipratropium bromide 21 mcg (0.03 %) spray,non-aerosol 2 spray INTRANASAL TID PRN (Reason: NASAL DRAINAGE) Lyrica 75 mg Capsule 75 mg PO DAILY propranolol 20 mg tablet 20 mg PO QAM nystatin 100,000 unit/mL Suspension 100,000 unit PO BID Rx Instructions: administer 1/2 of dose in each side of the mouth ferrous gluconate 324 mg (38 mg iron) Tablet 324 mg PO DAILY Referrals: Neeraj Cardoza MD [Primary Care Provider] - 1 week Patient Instructions: Opioid Safety Coding Level of Care Code Acute Code for [facility] Fwd Diagnoses Acute respiratory failure with hypoxia and hypercapnia J96.01; J96.02 Pneumonia J18.9 Laterality: right Lung location: lower lobe of lung Pneumonia type: due to unspecified organism Urinary tract infection N30.01 Hematuria presence: with hematuria Urinary tract infection type: acute cystitis HTN (hypertension) I10 Atrial fibrillation I48.91 Diastolic heart failure I50.30 Essential tremor G25.0 Asthma J45.909 Acute metabolic encephalopathy G93.41 Hypokalemia E87.6 Sepsis A41.9
[2022-06-27 10:05] LABS: Thyroid Stimulating Hormone 6.68 uIU/mL (0.27-4.20)
--- NOTE | 2022-06-27 11:26 | P.PN_ITS ---
Subjective Subjective: fells well Medications: Reviewed: Yes Vitals/I&O/Wt Last Vital Signs Temp 97.0 F L 06/26/22 22:59 Pulse 80 06/27/22 09:12 Resp 15 06/27/22 09:00 BP 112/75 06/27/22 08:00 Pulse Ox 92 06/27/22 09:00 O2 Del Method Room Air 06/27/22 09:00 O2 Flow Rate 2 06/25/22 08:50 FiO2 21 06/27/22 02:40 06/26/22 06/27/22 06/27/22 22:59 06:59 14:59 Intake Total 790 / 790 100 / 890 240 / 240 Output Total 500 / 500 Balance 790 / 790 -400 / 390 240 / 240 Weight last 48 hrs Weight 88.904 kg Physical Exam Narrative: awake and alert no distress Urinary Catheter Management: Weebr: Cath Placed During This Visit: yes Reason for Continuing Indwelling Catheter: Accurate Measurement of Urinary Output in Critically Ill Patients Urinary Catheter Date of Insertion: 06/22/22 Urinary Catheter Time of Insertion: 16:53 Data 06/27/22 03:58 06/27/22 03:58 Micro: Microbiology 06/24/22 13:36 Gram Stain - Final Lung Right Lower Lobe Bronchial Washings Culture - Final Yeast A&P Assessment and plan (1) Acute kidney injury superimposed on CKD: Plan 1. Acute on chronic kidney disease stage III: Baseline creatinine in the mid 1 range, peak creatinine up to 2.1. Cr 1.3 today .. Has volume overload and was diuresed . -Held lasix temporarily, s/p IV albumin , Noted U Na , U Cl - low. Renal US - unsuccessful. - will resume lasix 40 mg daily -2 g sodium restriction and 1500 mill fluid restriction. -Avoid nephrotoxins and IV contrast studies. -Patient sees health policy manager as outpatient in [place] 2. Acute on chronic respiratory failure: Multifactorial, secondary to hypercapnia, CHF, 3. Hypokalemia: repleted 4. Hypertension: Blood pressure borderline low 5. Anemia: s/p Epogen Patient evaluated using audiovisual cart. Time spent 40 minutes Attestations Medical Necessity Statement*: per medicine Coding Level of Care Code Acute Code for [facility] Fwd Diagnoses Acute kidney injury superimposed on CKD N17.9; N18.9
--- NOTE | 2022-06-27 13:28 | PC.SOCIAL ---
IMM update IMM updated with patient and at bedside. Verbalized an understanding. Copy Pg 2 provided. Initialled, dated, timed, and placed in chart.
[2022-06-27] MEDS: levalbuterol 1.25 mg/3 mL Neb INHALATION ×2 (14:08→20:12)
--- NOTE | 2022-06-27 14:09 | P.PN_ITS ---
Subjective Subjective: Patient was seen and examined this morning, doing better, was seen sitting in the chair, serum creatinine has continued to improve. Patient will need overnight pulse ox monitoring for home BiPAP requirement. Medications: Reviewed: Yes Medication Review Details: Generic Name Dose Route Start Last Admin Trade Name Freq PRN Reason Stop Dose Admin Albuterol/Ipratrop ium 3 ml 06/22/22 20:00 06/26/22 13:12 Ipratropium-Albu terol 3 Ml Neb INHALATION 3 ml Q6H.RESP KACEY Administration Ferrous Gluconate 324 mg 06/23/22 09:00 06/26/22 08:10 Ferrous Gluconat e 324 Mg Tablet PO 324 mg DAILY KACEY Administration Heparin Sodium (Po rcine) 5,000 unit 06/22/22 18:15 06/26/22 05:52 Heparin 5,000 Un it/Ml Inj 1 Ml SUBCUT 5,000 unit Q12H KACEY Administration Norepinephrine Bit artrate 4 mg 254 mls @ 0 mls/h r 06/22/22 18:30 06/24/22 19:00 / Dextrose IV Infused .Q0M KACEY Titration Protocol Per Protocol Lanolin 1 applic 06/23/22 08:58 06/23/22 09:07 Lanolin Oint 7 G m TOPICAL 1 applic PRN PRN Administration DRYNESS Multivitamins Ther apeutic 1 tab 06/22/22 21:00 06/25/22 21:15 Multivitamin The rapeutic Tablet PO 1 tab BEDTIME KACEY Administration Non-Formulary Medi cation 2 mg 06/22/22 21:00 06/25/22 21:13 Eszopiclone [Ant esta] PO Not Given BEDTIME KACEY Non-Formulary Medi cation 24 mcg 06/22/22 18:00 06/26/22 08:10 Lubiprostone [Am itiza] PO Not Given BID KACEY Pantoprazole Sodiu m 40 mg 06/22/22 18:00 06/26/22 05:56 Pantoprazole 40 Mg Sdv IVP 40 mg Q12H KACEY Administration Pregabalin 75 mg 06/23/22 09:00 06/26/22 08:10 Pregabalin 75 Mg Capsule PO 75 mg DAILY KACEY Administration Ropinirole HCl 2 mg 06/22/22 21:00 06/25/22 21:15 Ropinirole 2 Mg Tablet PO 2 mg BEDTIME KACEY Administration Senna 17.2 mg 06/23/22 06:00 06/26/22 05:50 Sennosides 8.6 M g Tablet PO 17.2 mg QAM KACEY Administration Senna 8.6 mg 06/22/22 18:00 06/25/22 17:44 Sennosides 8.6 M g Tablet PO 8.6 mg QPM KACEY Administration Sodium Chloride 4 ml 06/25/22 20:00 06/26/22 07:50 Sodium Chloride 3.5% Neb 4 Ml Neb INHALATION 4 ml BID.RESPIRATORY S CH Administration Vitals/I&O/Wt Last Vital Signs Temp 97.0 F L 06/26/22 22:59 Pulse 80 06/27/22 13:00 Resp 25 H 06/27/22 13:00 BP 134/80 06/27/22 10:00 Pulse Ox 93 06/27/22 13:00 O2 Del Method Room Air 06/27/22 09:00 O2 Flow Rate 2 06/25/22 08:50 FiO2 21 06/27/22 02:40 06/26/22 06/27/22 06/27/22 22:59 06:59 14:59 Intake Total 790 / 790 100 / 890 720 / 720 Output Total 500 / 500 Balance 790 / 790 -400 / 390 720 / 720 Weight last 48 hrs Weight 88.904 kg Physical Exam HENMT: COMMON NORMALS: normocephalic and atraumatic HEAD & SCALP: normocephalic and atraumatic Resp: COMMON NORMALS: clear to auscultation bilaterally AUSCULTATION: clear to auscultation bilaterally Cardio: COMMON NORMALS: regular rate, regular rhythm, S1 normal heart sound present, S2 normal heart sound present, No gallops present (Cardio), No murmurs present (Cardio), No rub (Cardio) and Peripheral pulses 2+ throughout RATE: regular rate RHYTHM: regular rhythm HEART SOUNDS: S1 normal heart sound present and S2 normal heart sound present PERIPHERAL PULSES: Peripheral pulses 2+ throughout GI: COMMON NORMALS: Normal to inspection, nondistended, normoactive bowel sounds present, Soft to palpation, non-tender, No hepatosplenomegaly present and no masses AUSCULTATION: Yes normoactive bowel sounds PALPATION: Yes Soft to palpation and Yes No hepatosplenomegaly present RECTAL EXAM: deferred Extremity: COMMON NORMALS: no clubbing, cyanosis or edema and no pedal edema Urinary Catheter Management: Weber: Cath Placed During This Visit: yes Reason for Continuing Indwelling Catheter: Accurate Measurement of Urinary Output in Critically Ill Patients Urinary Catheter Date of Insertion: 06/22/22 Urinary Catheter Time of Insertion: 16:53 Data 06/27/22 03:58 06/27/22 03:58 Micro: Microbiology 06/22/22 12:40 Blood Culture - Final Blood NO GROWTH AFTER 5 DAYS 06/22/22 12:35 Blood Culture - Final Blood NO GROWTH AFTER 5 DAYS 06/24/22 13:36 Gram Stain - Final Lung Right Lower Lobe Bronchial Washings Culture - Final Yeast A&P Assessment and plan (1) Acute respiratory failure with hypoxia and hypercapnia: (2) Pneumonia: Qualifiers: Laterality: right Lung location: lower lobe of lung Pneumonia type: due to unspecified organism Qualified Code(s): J18.9 - Pneumonia, unspecified organism (3) Urinary tract infection: Qualifiers: Hematuria presence: with hematuria Urinary tract infection type: acute cystitis Qualified Code(s): N30.01 - Acute cystitis with hematuria (4) HTN (hypertension): (5) Atrial fibrillation: (6) Diastolic heart failure: (7) Essential tremor: (8) Asthma: (9) Acute metabolic encephalopathy: (10) Hypokalemia: (11) Sepsis: Plan 82 year old female with past medical history of atrial fibrillation, heart failu re with reduced ejection fraction, coronary artery disease, status post pacemaker, CKD stage III, COPD, came in today with chief complaint of worsening lethargy as well as shortness of breath. Assessment: Respiratory failure with hypoxia and hypercapnia: Likely secondary decompensated heart failure, possible underlying hospital-acquired pneumonia. CT chest without contrast:Bilateral right greater than left lower lobe airspace infiltrates,Large right and small left pleural effusions.Ascites in the upper abdomen. 2D Echo: Normal left ventricular size and systolic function, EF 47 %. No ?regional wall motion abnormalities. ?Moderate biatrial enlargement.?Possibly normal RV size and ejection fraction.?Thickened mitral valve. Mild mitral annular calcification. Mild?mitral valve regurgitation.?[id number] tricuspid valve regurgitation.?Estimated pulmonary artery peak systolic pressure 37 mmHg. There is no pericardial effusion. Ultrasound chest: Prominent right effusion,Small left pleural effusion. Blood culture: NTD Sputum Gram stain and culture Urine Legionella antigen: Negative Bacterial antigen panel: Negative MRSA PCR: Negative Lasix 40 I.V twice daily (currently on hold) Currently on broad-spectrum antibiotic Vanco and meropenem Continue BiPAP Continue DuoNebs S/p bronchoscopy: For airway evaluation to rule out any underlying endobronchial mass. Supplemental oxygen as needed. Pulmonary medicine on board Possibly CKD versus ANI on CKD Admission serum creatinine is 1.9 Baseline serum creatinine appears to be around 1-1.6 Monitor BMP Avoid nephrotoxic's Monitor intake output charting. Nephrology on board Sepsis possibly secondary to pneumonia/ UTI: Patient currently meets sepsis criteria as she is hypothermic, has required transient vasopressor support in the form of Levophed. IV fluid bolus was avoided in the presence of decompensated heart failure. Plan as 1 Acute on chronic decompensated heart failure with reduced ejection fraction: Plan is 1 History of COPD: Plan as 1 Acute metabolic encephalopathy: Secondary to hypercapnic respiratory failure, UTI. CT head without contrast no acute intracranial pathology. Continue to monitor mentation Continue BiPAP continue antibiotics UTI: Follow urine culture Currently appropriately covered with broad-spectrum antibiotics Hypokalemia: Monitor and replace serum potassium. CODE STATUS:AND DVT prophylaxis: Attestations Medical Necessity Statement*: Patient is in hospital for IV antibiotics. Coding Level of Care Code 64476 Diagnoses Acute respiratory failure with hypoxia and hypercapnia J96.01; J96.02 Pneumonia J18.9 Laterality: right Lung location: lower lobe of lung Pneumonia type: due to unspecified organism Urinary tract infection N30.01 Hematuria presence: with hematuria Urinary tract infection type: acute cystitis HTN (hypertension) I10 Atrial fibrillation I48.91 Diastolic heart failure I50.30 Essential tremor G25.0 Asthma J45.909 Acute metabolic encephalopathy G93.41 Hypokalemia E87.6 Sepsis A41.9
[2022-06-27] MEDS: sennosides 8.6 mg Tablet PO (17:41)
[2022-06-27] MEDS: ropinirole 2 mg Tablet PO (20:52)
[2022-06-27] MEDS: multivitamin therapeutic Tablet 1 TAB PO (20:53)
[2022-06-28] VITALS (12 sets, daily range): BP systolic 85–135; BP diastolic 57–77; PULSE 80–86; RESP 14–30; TEMP 36.1–36.7; O2SAT 89–97
[2022-06-28] MEDS: ipratropium 0.5 mg/2.5 mL Neb INHALATION ×2 (02:39→08:35)
[2022-06-28] MEDS: levalbuterol 1.25 mg/3 mL Neb INHALATION ×2 (02:39→08:35)
[2022-06-28] MEDS: meropenem 500 MG in sodium chloride 0.9% (plus) 50 ML 100 MG IV (05:46)
[2022-06-28] MEDS: pantoprazole 40 mg SDV IVP (05:46)
[2022-06-28] MEDS: sennosides 8.6 mg Tablet 17.2 MG PO (05:47)
[2022-06-28] MEDS: heparin 5,000 unit/mL INJ 1 mL 5000 UNIT SUBCUT (05:47)
[2022-06-28 05:59] LABS: Eosinophils # 0.1 10^3/uL (0.0-0.8); Eosinophils % 3.4 %; Hematocrit 25.3 % (37.0-47.0); Hemoglobin 7.4 g/dL (11.5-15.3); Lymphocytes # 1.2 10^3/uL (0.8-4.8); Lymphocytes % 28.2 %; Mean Corpuscular HGB Conc 29.2 g/dL (30.0-36.0); Mean Corpuscular Volume 95.8 fl (81-99); Mean Platelet Volume 12.3 fL (7.4-10.4); Monocytes # 0.4 10^3/uL (0.2-0.9); Monocytes % 10.3 %; Neutrophils # 2.31 10^3/uL (1.8-7.7); Neutrophils % 56.6 %; Nucleated Red Blood Cells % 0.5 %; Platelet Count 138 10^3/cmm (130-400); Red Blood Count 2.64 10^6/uL (4.1-5.3); Red Cell Distribution Width 17.2 % (12.1-15.1); White Blood Count 4.1 10^3/uL (4.0-10.0)
[2022-06-28 06:26] LABS: Alanine Aminotransferase 11 U/L (0-33); Albumin Level 3.6 g/dL (3.5-5.2); Alkaline Phosphatase 108 U/L (35-105); Anion Gap 11.6 (5-19); Aspartate Amino Transferase 22 U/L (0-32); Blood Urea Nitrogen 32 mg/dL (8-23); Calcium 8.7 mg/dL (8.5-10.5); Carbon Dioxide 29 mmol/L (22-29); Chloride 96 mmol/L (98-107); Globulin 2.8 g/dL (1.3-4.6); Glucose 90 mg/dL (65-115); Osmolality Calculated 282 mOsm/kg (285-295); Potassium 3.6 mmol/L (3.5-5.1); Sodium 133 mmol/L (136-145); Total Bilirubin 0.8 mg/dL (0.15-1.2); Total Protein 6.4 g/dL (6.6-8.7)
[2022-06-28] MEDS: sodium chloride 3.5% neb 4 mL Neb INHALATION (08:35)
[2022-06-28] MEDS: ferrous gluconate 324 mg Tablet PO (08:48)
[2022-06-28] MEDS: FUROsemide 40 mg Tablet PO (08:49)
[2022-06-28] MEDS: pregabalin 75 mg Capsule PO (08:49)
--- NOTE | 2022-06-28 11:53 | PM.DCS ---
Discharge Providers Date of Admission: 06/22/22 15:12 Date of Discharge: June 28, 2022 Attending Provider at Admission: Abilio Maurer MD Attending Provider at Discharge: Abilio Maurer MD Primary Care Provider: Neeraj Cardoza MD Diagnoses at Discharge Discharge Diagnosis (1) Acute respiratory failure with hypoxia and hypercapnia: Status: Acute (2) Pneumonia: Status: Acute Qualifiers: Laterality: right Lung location: lower lobe of lung Pneumonia type: due to unspecified organism Qualified Code(s): J18.9 - Pneumonia, unspecified organism (3) Urinary tract infection: Status: Acute Qualifiers: Hematuria presence: with hematuria Urinary tract infection type: acute cystitis Qualified Code(s): N30.01 - Acute cystitis with hematuria (4) HTN (hypertension): Status: Acute (5) Atrial fibrillation: Status: Acute (6) Diastolic heart failure: Status: Acute (7) Essential tremor: Status: Acute (8) Asthma: Status: Acute (9) Acute metabolic encephalopathy: Status: Acute (10) Hypokalemia: Status: Acute (11) Sepsis: Status: Acute Reason for Visit Reason for Visit: LETHARGIC/ TROUBLE BREATHING Hospital Course Hospital Course 82 year old female with past medical history of atrial fibrillation, heart failure with reduced ejection fraction, coronary artery disease, status post pacemaker, CKD stage III, COPD, came in today with chief complaint of worsening lethargy as well as shortness of breath. She was admitted for the management of Respiratory failure with hypoxia and hypercapnia: Likely secondary decompensated heart failure, possible underlying hospital-acquired pneumonia.CT chest without contrast:Bilateral right greater than left lower lobe airspace infiltrates,Large right and small left pleural effusions.Ascites in the upper abdomen. 2D Echo:?Normal left ventricular size and systolic function, EF 47 %. No ?regional wall motion abnormalities. ?Moderate biatrial enlargement.?Possibly normal RV size and ejection fraction.?Thickened mitral valve. Mild mitral annular calcification. Mild?mitral valve regurgitation.?[id number] tricuspid valve regurgitation.?Estimated pulmonary artery peak systolic pressure 37 mmHg. There is no pericardial effusion. Ultrasound chest: Prominent right effusion,Small left pleural effusion. Blood culture: NTD,Sputum Gram stain and culture,Urine Legionella antigen: Negative Bacterial antigen panel: Negative,MRSA PCR: Negative.Bedside ultrasound was done to assess pleural effusion, no significant good pocket for thoracentesis. Patient was kept on broad-spectrum antibiotic during the hospital stay to which she responded well, patient was discharged on p.o. levofloxacin for another 7-days to complete the antibiotic course for pneumonia. During the hospital stay patient also underwent bronchoscopy for evaluation of possible underlying endobronchial mass, pulmonary was on board, bronchoscopy was consistent mainly with Significantly edematous right lower lobe airways, BAL was collected,endobronchial biopsies from right lower lobe mucosa was done, airway secretion clearance was also done, patient tolerated the procedure well. Bronchial washing culture has shown yeast; likely colonization: No antifungal was used during the hospital stay.During the hospital stay patient was also managed for sepsis secondary to pneumonia and UTI. She was also managed for ANI on CKD: She was managed conservatively: She was on albumin IV infusion, initially on Lasix, which was transiently held, and was later restarted, at home dose of 40 p.o., daily, she was discharged on 40 p.o. daily, at the time of discharge serum creatinine was, 1.3, patient was also managed for acute on chronic decompensated heart failure with reduced ejection fraction: She was also managed for acute metabolic encephalopathy secondary to hypercapnic respiratory failure UTI, CT head without contrast failed to show any acute intracranial pathology, responded well to above medical management, at the time of discharge she was alert, at her baseline mentation, electrolytes abnormality correction was also undertaken during the hospital stay. Overall patient responded well to above medical management, on discharge she qualified for BiPAP, she is being discharged home in stable condition, she will follow PCP and, pulmonary as outpatient. Physical Exam HENMT: COMMON NORMALS: normocephalic and atraumatic HEAD & SCALP: normocephalic and atraumatic Resp: COMMON NORMALS: clear to auscultation bilaterally AUSCULTATION: clear to auscultation bilaterally Cardio: COMMON NORMALS: regular rate, regular rhythm, S1 normal heart sound present, S2 normal heart sound present, No gallops present (Cardio), No murmurs present (Cardio), No rub (Cardio) and Peripheral pulses 2+ throughout RATE: regular rate RHYTHM: regular rhythm HEART SOUNDS: S1 normal heart sound present and S2 normal heart sound present PERIPHERAL PULSES: Peripheral pulses 2+ throughout GI: COMMON NORMALS: Normal to inspection, nondistended, normoactive bowel sounds present, Soft to palpation, non-tender, No hepatosplenomegaly present and no masses AUSCULTATION: Yes normoactive bowel sounds PALPATION: Yes Soft to palpation and Yes No hepatosplenomegaly present RECTAL EXAM: deferred Extremity: COMMON NORMALS: no clubbing, cyanosis or edema and no pedal edema Urinary Catheter Management: Wbeer: Cath Placed During This Visit: yes, but has since been removed by the nurse Reason for Continuing Indwelling Catheter: Accurate Measurement of Urinary Output in Critically Ill Patients Urinary Catheter Date of Insertion: 06/22/22 Urinary Catheter Time of Insertion: 16:53 Date Urinary Catheter Removed: 06/27/22 Time Urinary Catheter Discontinued: 18:35 Discharge Data Studies Completed and Pending Completed Studies During Hospitalization Category Date Time Status CT chest wo con [id number] Routine Cat Scan 06/22/22 15:[address] head wo con* [id number] Stat Cat Scan 06/22/22 11:40 Completed XR chest 1V portable [id number] Routine Exams 06/24/22 08:18 Completed XR chest 1V portable [id number] Routine Exams 06/25/22 09:13 Completed XR chest 1V portable [id number] Stat Exams 06/22/22 11:03 Completed Pathology: Surgical [PTH] Routine Pth 06/24/22 13:55 Completed CV. echo complete* [id number] Routine Ultrasound 06/22/22 15:28 [place] chest [id number] Routine Ultrasound 06/23/22 07:57 Completed US renal BI* [id number] Routine Ultrasound 06/23/22 10:55 Completed Pending at discharge Category Date Time Status Sputum Culture and Gram Stain Routine Lab 06/28/22 08:40 Received Cytology [PTH] Routine Pth 06/24/22 13:45 Received Radiology Impressions Head CT 06/22/22 11:40 IMPRESSION: 1. No evidence of intracranial hemorrhage or mass effect. 2. Mild small vessel changes. Mild parenchymal volume loss. 3. Vascular calcification. 4. No acute intracranial findings. Chest CT 06/22/22 15:21 IMPRESSION: 1. Bilateral right greater than left lower lobe airspace infiltrates. 2. Ascending thoracic aorta dilated to 4.7 cm. 3. Cardiomegaly. 4. Coronary artery atherosclerotic calcifications. 5. Large right and small left pleural effusions. 6. Ascites in the upper abdomen. 7. Right kidney cyst, negative for follow-up advised. COMMENTS: Consistent with the [employer]'s Incidental Findings Committee white paper (J Am Lucinda Radiol 2018): Any incidental renal lesion less than 1 cm or classified as too small to characterize, or any incidental cystic renal lesion characterized as simple-appearing, is likely benign. No follow-up imaging is recommended for these lesions per consensus recommendations based on imaging criteria. Chest Ultrasound 06/23/22 07:57 IMPRESSION: Prominent right effusion Small left pleural effusion The effusions are better visualized calibrated on recent CT imaging of the chest dated 06/22/2022 Renal Ultrasound 06/23/22 10:55 IMPRESSION: Unable to image kidneys due to patient condition Chest X-Ray 06/25/22 09:13 IMPRESSION: Changes are consistent with increased effusion on the right with other causes of consolidation contributing to the change not excluded. No current pulmonary vascular congestion. Laboratory Results WBC 4.1 10^3/uL (4.0-10.0) 06/28/22 05:30 RBC 2.64 10^6/uL (4.1-5.3) L 06/28/22 05:30 Hgb 7.4 g/dL (11.5-15.3) L 06/28/22 05:30 Hct 25.3 % (37.0-47.0) L 06/28/22 05:30 MCV 95.8 fl (81-99) 06/28/22 05:30 MCH 28.0 pg (28.0-34.0) 06/28/22 05:30 MCHC 29.2 g/dL (30.0-36.0) L 06/28/22 05:30 RDW 17.2 % (12.1-15.1) H 06/28/22 05:30 Plt Count 138 10^3/cmm (130-400) 06/28/22 05:30 MPV 12.3 fL (7.4-10.4) H 06/28/22 05:30 Neut % (Auto) 56.6 % 06/28/22 05:30 Lymph % (Auto) 28.2 % 06/28/22 05:30 [place] % (Auto) 10.3 % 06/28/22 05:30 Eos % (Auto) 3.4 % 06/28/22 05:30 Baso % (Auto) 1.0 % 06/28/22 05:30 Neut # (Auto) 2.31 10^3/uL (1.8-7.7) 06/28/22 05:30 Lymph # (Auto) 1.2 10^3/uL (0.8-4.8) 06/28/22 05:30 [place] # (Auto) 0.4 10^3/uL (0.2-0.9) 06/28/22 05:30 Eos # (Auto) 0.1 10^3/uL (0.0-0.8) 06/28/22 05:30 Baso # (Auto) 0.0 10^3/uL (0.0-0.1) 06/28/22 05:30 Nucleated RBC % (auto) 0.5 % 06/28/22 05:30 Nucleated RBCs # 0.0 /100WBC 06/28/22 05:30 PT 16.30 SECONDS (12.1-14.9) H 06/23/22 08:24 INR 1.27 (0.8-1.2) H 06/23/22 08:24 Specimen Type Arterial 06/24/22 09:29 Sample Site Radial, left 06/24/22 09:29 ABG pH 7.30 (7.35-7.45) L 06/24/22 09:29 ABG pCO2 67.4 mmHg (35-45) H* 06/24/22 09:29 ABG pO2 106.0 mmHg (80.0-100.0) H 06/24/22 09:29 ABG HCO3 32.9 mmol/L (22-26) H 06/24/22 09:29 ABG O2 Saturation 98.8 06/24/22 09:29 ABG Base Excess 5.5 mmol/L (-2.0-2.0) H 06/24/22 09:29 Ernesto Test Pos 06/24/22 09:29 A-a O2 Gradient 1.8 mmHg (5-10) L 06/24/22 09:29 Hematocrit 23.6 % (37-47) L 06/24/22 09:29 Hgb O2 Saturation 97.1 % (95-100) 06/24/22 09:29 Carboxyhemoglobin 1.5 %THgb (0.4-20.1) 06/24/22 09:29 Methemoglobin 0.2 % (0.4-1.5) L 06/24/22 09:29 Total Hemoglobin 7.7 g/dL (12-16) L 06/24/22 09:29 Sodium 141.0 mmol/L (131-143) 06/24/22 09:29 Potassium 3.4 mmol/L (3.5-5.0) L 06/24/22 09:29 Glucose 100.0 mg/dL (70-115) 06/24/22 09:29 Ionized Calcium 1.2 mmol/L (1.1-1.4) 06/24/22 09:29 O2 Delivery Device Nc 06/24/22 09:29 O2 Liters/Min 2.0 % 06/24/22 09:29 FiO2 28.0 % 06/24/22 09:29 PEEP 8.0 cmH20 06/22/22 15:09 Clinical Specialist Medical Device ID Cak 06/24/22 09:29 Sodium 133 mmol/L (136-145) L 06/28/22 05:30 Potassium 3.6 mmol/L (3.5-5.1) 06/28/22 05:30 Chloride 96 mmol/L (98-107) L 06/28/22 05:30 Carbon Dioxide 29 mmol/L (22-29) 06/28/22 05:30 Anion Gap 11.6 (5-19) 06/28/22 05:30 BUN 32 mg/dL (8-23) H 06/28/22 05:30 Creatinine 1.3 mg/dL (0.5-0.9) H 06/28/22 05:30 GFR Calculation Not Reportable 06/28/22 05:30 Glucose 90 mg/dL (65-115) 06/28/22 05:30 POC Glucose 134 mg/dL (70-110) H 06/25/22 10:59 Calculated Osmolality 282 mOsm/kg (285-295) L 06/28/22 05:30 Lactic Acid 2.1 mmol/L (0.5-2.2) 06/22/22 11:00 Lactic Acid (Sepsis) 1.8 mmol/L (0.5-2.2) 06/22/22 14:00 Calcium 8.7 mg/dL (8.5-10.5) 06/28/22 05:30 Magnesium 1.7 mg/dL (1.7-2.3) 06/23/22 04:29 Total Bilirubin 0.8 mg/dL (0.15-1.2) 06/28/22 05:30 AST 22 U/L (0-32) 06/28/22 05:30 ALT 11 U/L (0-33) 06/28/22 05:30 Alkaline Phosphatase 108 U/L (35-105) H 06/28/22 05:30 NT-Pro-B Natriuret Pep 2703 pg/mL (0-450) H 06/22/22 10:15 Total Protein 6.4 g/dL (6.6-8.7) L 06/28/22 05:30 Albumin 3.6 g/dL (3.5-5.2) 06/28/22 05:30 Globulin 2.8 g/dL (1.3-4.6) 06/28/22 05:30 Procalcitonin 0.16 ng/mL (0-0.5) 06/23/22 04:29 TSH 6.68 uIU/mL (0.27-4.20) H 06/27/22 03:58 Random Cortisol 10.92 ug/dL (2.47-19.5) 06/27/22 03:58 Urine Color Yellow (Yellow) 06/22/22 11:35 Urine Appearance Hazy (CLEAR) A 06/22/22 11:35 Urine pH 5 (5-7) 06/22/22 11:35 Ur Specific [place] 1.025 (1.005-1.030) 06/22/22 11:35 Urine Protein 3+ (Negative) H 06/22/22 11:35 Urine Glucose (UA) Norm (Normal) 06/22/22 11:35 Urine Ketones 1+ (Negative) H 06/22/22 11:35 Urine Blood 3+ (Negative) H 06/22/22 11:35 Urine Nitrate Positive (Negative) H 06/22/22 11:35 Urine Bilirubin 1+ (Negative) H 06/22/22 11:35 Urine Urobilinogen 1+ mg/dL (Negative) H 06/22/22 11:35 Ur Leukocyte Esterase 1+ (Negative) H 06/22/22 11:35 Urine RBC 15-25 /hpf (0-2) H 06/22/22 11:35 Urine WBC 5-10 /hpf (0-5) H 06/22/22 11:35 Ur Squamous Epith Cells 10-15 /hpf (0-5) H 06/22/22 11:35 Amorphous Sediment 2+ /hpf 06/22/22 11:35 Urine Bacteria 2+ /hpf (NONE) H 06/22/22 11:35 Ur Random Sodium 17 mmol/L 06/23/22 16:15 Ur Random Chloride 10 mmol/L 06/23/22 16:15 Nasal Influ A H1 2009 PCR Not detected (NOT DETECT) 06/22/22 12:55 Bronch Specimen Source Right lower lobe 06/24/22 13:36 Bronchial Fluid Color Slight pink 06/24/22 13:36 Bronchial Fluid Appearance Cloudy (CLEAR) 06/24/22 13:36 Bronchial Fluid WBC 98 /uL 06/24/22 13:36 Bronchial Fluid RBC 2 10^3/uL 06/24/22 13:36 Bronch Cells Counted 200 06/24/22 13:36 Bronchial Neutrophils 70.00 % (0.9-2.3) H 06/24/22 13:36 Bronchial Lymphocytes 12.00 % (10.71-12.91) 06/24/22 13:36 Bronchial Macrophages 18.00 % (83.6-86.8) L 06/24/22 13:36 Bronchial Diff Comment Yes 06/24/22 13:36 Adenovirus (PCR) Not detected (NOT DETECT) 06/22/22 12:55 C. pneumoniae DNA (PCR) Not detected (NOT DETECT) 06/22/22 12:55 Coronavirus 229E (PCR) Not detected (NOT DETECT) 06/22/22 12:55 Human Metapneumovir PCR Not detected (NOT DETECT) 06/22/22 12:55 Influenza A (H1) PCR Not detected (NOT DETECT) 06/22/22 12:55 Influenza A (H3) PCR Not detected (NOT DETECT) 06/22/22 12:55 Influenza Type A (PCR) Not detected (NOT DETECT) 06/22/22 12:55 Influenza Type B (PCR) Not detected (NOT DETECT) 06/22/22 12:55 M. pneumoniae (PCR) Not detected (NOT DETECT) 06/22/22 12:55 Parainfluenza 1 (PCR) Not detected (NOT DETECT) 06/22/22 12:55 Parainfluenza 2 (PCR) Not detected (NOT DETECT) 06/22/22 12:55 Parainfluenza 3 (PCR) Not detected (NOT DETECT) 06/22/22 12:55 Parainfluenza 4 (PCR) Not detected (NOT DETECT) 06/22/22 12:55 RSV Type A (PCR) Not detected (NOT DETECT) 06/22/22 12:55 RSV Type B (PCR) Not detected (NOT DETECT) 06/22/22 12:55 Entero/Rhino (PCR) Not detected (NOT DETECT) 06/22/22 12:55 SARS-CoV-2 (PCR) Not detected (NOT DETECT) 06/22/22 12:55 Vitals Last Vital Signs Temp 97.2 F L 06/28/22 10:38 Pulse 80 06/28/22 10:38 Resp 27 H 06/28/22 10:38 BP 114/65 06/28/22 10:38 Pulse Ox 95 06/28/22 10:38 O2 Del Method Room Air 06/28/22 10:38 O2 Flow Rate 2 06/25/22 08:50 FiO2 21 06/27/22 14:12 Discharge Plan Discharge Patient Disposition: Home Condition: Stable Prescriptions: New levofloxacin 750 mg tablet 750 mg PO Q48H 14 Days Qty: 7 0RF Continued Amitiza 24 mcg capsule 24 mcg PO BID multivitamin Tablet 1 tab PO BEDTIME eszopiclone [Lunesta] 2 mg tablet 2 mg PO BEDTIME hydrocodone-acetaminophen 5-325 mg tablet 1 tab PO BID PRN (Reason: Pain) Breztri Aerosphere 160-9-4.8 mcg/actuation HFA aerosol inhaler 2 inh inhalation BID ropinirole 2 mg tablet 2 mg PO BEDTIME furosemide 40 mg tablet 40 mg PO DAILY levalbuterol tartrate [Xopenex HFA] 45 mcg/actuation HFA aerosol inhaler 2 inh inhalation Q6H Qty: 15 3RF guaifenesin [Mucinex Fast-Max Chest-Congest] 100 mg/5 mL liquid 200 mg PO Q4H PRN (Reason: cough) Qty: 473 3RF metoprolol succinate 25 mg tablet extended release 24 hr 25 mg PO DAILY Qty: 90 3RF lansoprazole [Prevacid] 30 mg capsule,delayed release(DR/EC) 30 mg PO BID Qty: 180 3RF montelukast [Singulair] 10 mg tablet 10 mg PO DAILY Qty: 30 5RF sennosides [senna] 8.6 mg Tablet See Rx Instructions .ROUTE .COMPLEX Rx Instructions: 17.2 mg orally in the morning / 8.6 mg orally in the evening PreserVision AREDS-2 250-90-40-1 mg Capsule 1 tab PO BID ipratropium bromide 21 mcg (0.03 %) spray,non-aerosol 2 spray INTRANASAL TID PRN (Reason: NASAL DRAINAGE) Lyrica 75 mg Capsule 75 mg PO DAILY propranolol 20 mg tablet 20 mg PO QAM nystatin 100,000 unit/mL Suspension 100,000 unit PO BID Rx Instructions: administer 1/2 of dose in each side of the mouth ferrous gluconate 324 mg (38 mg iron) Tablet 324 mg PO DAILY Discharge Orders: Discharge Order (Routine); Ordered 06/28/22 Ordered By: Abilio Maurer Other Ambulatory Orders: DME: BIPAP (Order) Location: None Selected Ordered By: Abilio Maurer Referrals: Neeraj Cardoza MD [Primary Care Provider] - 1 week Patient Instructions: Levofloxacin (By mouth) (Levaquin, Levaquin Leva-essence), Acute Kidney Injury (DC), Hypokalemia (DC), Sepsis (DC), Opioid Safety Discharge Attestations Time Spent in Discharge Care*: less than 30 min Quality Metrics Clinical Quality Measures [ No reported AMI, CVA or VTE this stay] Coding Level of Care Code Acute Code for Chg Fwd Diagnoses Acute respiratory failure with hypoxia and hypercapnia J96.01; J96.02 Pneumonia J18.9 Laterality: right Lung location: lower lobe of lung Pneumonia type: due to unspecified organism Urinary tract infection N30.01 Hematuria presence: with hematuria Urinary tract infection type: acute cystitis HTN (hypertension) I10 Atrial fibrillation I48.91 Diastolic heart failure I50.30 Essential tremor G25.0 Asthma J45.909 Acute metabolic encephalopathy G93.41 Hypokalemia E87.6 Sepsis A41.9
--- NOTE | 2022-06-28 12:35 | PC.NURSE ---
Discharge orders noted. IV removed. cath tip intact. pt tolerated well. patient has been instructed that they will be hearing from the [employer] this week and to call dr. benavides's office on wednesday for an appointment. Pt left with d/c medication of levaquin in hand that was filled by in house pharmacy yesterday. discharged home with spouse via private vehicle. no questions or concerns noted.
== END 2022-06-28 12:15 | disposition home or self-care (01) | DRG 166 ==
LOC: ER 13:17 → CSU 14:48 → ICU 20:09 → CSU 06-23 06:06
PROVIDERS: Hospitalist; Internal Medicine Pulmonary Disease; Admitting Provider Internal Medicine; Emergency Provider Emergency Medicine; PCP Family Medicine; Visit Provider Internal Medicine
PROC: 0BJ08ZZ Inspection of Tracheobronchial Tree, Via Natural or Artificial Opening Endoscopic (ICD-10-PCS; CPT 31622; principal; 2022-06-24 12:00)
DX: J18.9 Pneumonia, unspecified organism (principal); A41.9 Sepsis, unspecified organism; B37.1 Pulmonary candidiasis; G93.41 Metabolic encephalopathy; I50.23 Acute on chronic systolic (congestive) heart failure; J96.22 Acute and chronic respiratory failure with hypercapnia; J96.21 Acute and chronic respiratory failure with hypoxia; I13.0 Hypertensive heart and chronic kidney disease with heart failure and stage 1 through stage 4 chronic kidney disease, or unspecified chronic kidney disease; J44.0 Chronic obstructive pulmonary disease with (acute) lower respiratory infection; N30.01 Acute cystitis with hematuria; N17.9 Acute kidney failure, unspecified; R18.8 Other ascites; N18.30 Chronic kidney disease, stage 3 unspecified; I48.91 Unspecified atrial fibrillation; I25.10 Atherosclerotic heart disease of native coronary artery without angina pectoris; Z95.0 Presence of cardiac pacemaker; I08.1 Rheumatic disorders of both mitral and tricuspid valves; Z79.891 Long term (current) use of opiate analgesic; G25.0 Essential tremor; D63.1 Anemia in chronic kidney disease; K21.9 Gastro-esophageal reflux disease without esophagitis; E87.6 Hypokalemia; R68.0 Hypothermia, not associated with low environmental temperature; R13.10 Dysphagia, unspecified
CPT/HCPCS: 12345; 31624; 31625; 31645; 36415; 36416; 36600; 51702; 70450; 71045; 71250; 76604; 76770; 80051; 80053; 80503; 81001; 82330; 82436; 82533; 82805; 82962; 83605; 83735; 83880; 84145; 84300; 84443; 85025; 85610; 86403; 87040; 87070; 87086; 87205; 87449; 87486; 87581; 87633; 87641; 88112; 88305; 88309; 89050; 93005; 93306; 94640; 94660; 96372; 96376; 97110; 97116; 97162; 99285; C9113; J0744; J0885; J1644; J1940; J2185; J2704; J3010; J3370; J3480; J7030; J7050; J7060; J7608; J7614; J7644; P9046; Q3014

== ENCOUNTER → 2022-07-02 11:01 | Outpatient (BNVA) | payer MEDICARE, MEDICAID, SELFPAY | PROVIDERS: PCP Family Medicine; Visit Provider Podiatrist Foot & Ankle Surgery | DX: I73.9 Peripheral vascular disease, unspecified (principal); L60.8 Other nail disorders; L60.3 Nail dystrophy | CPT/HCPCS: 11721 ==

== ENCOUNTER 2022-07-07 18:00 | Inpatient (IN) | payer MEDICARE, MEDICAID, SELFPAY ==
[2022-07-07] VITALS (15 sets, daily range): BP systolic 80–101; BP diastolic 54–70; PULSE 80–108; RESP 17–22; TEMP 34.8–36.3; O2SAT 86–96; BMI 34.6
--- NOTE | 2022-07-07 18:08 | XRR_ITS ---
PROCEDURE INFORMATION: Exam: XR Chest Exam date and time: 07/07/2022 6:18 PM Age: 82 years old Clinical indication: Other: Weakness TECHNIQUE: Imaging protocol: Radiologic exam of the chest. Views: 1 view. COMPARISON: CT chest [facility] [id number] 06/22/2022 7:58 PM FINDINGS: Lungs: Unchanged small lung volumes with elevated right hemidiaphragm, right basilar consolidation and small right pleural effusion. This may represent persistent right basilar pneumonia. Interval decreased left basilar interstitial opacities. Pleural spaces: See Lungs finding. Heart/Mediastinum: There is unchanged mild cardiomegaly. Unchanged left subclavian ventricular pacemaker.There is a mildly tortuous thoracic aorta. The trachea is midline. Bones/joints: No acute osseous abnormalities seen. XR/XR chest 1V portable [id number] IMPRESSION: 1. Unchanged small lung volumes with elevated right hemidiaphragm, right basilar consolidation and small right pleural effusion. This may represent persistent right basilar pneumonia. Interval decreased left basilar interstitial opacities. 2. Unchanged mild cardiomegaly.
--- NOTE | 2022-07-07 18:08 | ECG_ITS ---
[facility] Test Date: 2022-07-07 Pat Name: Megan Das Department: Room: Gender: Female [employer]: : 1940 Requested By: Mary Lopez Order Number: [id number] Saranya MD: Romain Cadena M.D. Measurements Intervals [place] Rate: 80 P: 0 [place]: 0 QRS: -32 QRSD: 172 T: 150 QT: 438 QTc: 505 Interpretive Statements ELECTRONIC VENTRICULAR PACEMAKER Compared to ECG 06/22/2022 11:44:01 Prolonged QT interval no longer present Electronically Signed On 07-07-2022 20:37:11 CDT by Romain Cadena M.D. [email or web address]
--- NOTE | 2022-07-07 18:30 | ED_ITS ---
HPI - General Adult General: Chief complaint: General Medical Stated complaint: Low Blood pressure Time Seen by Provider: 07/07/22 18:20 Source: patient Mode of arrival: ambulatory Limitations: no limitations History of Present Illness: 82-year-old female is a history congestive heart failure she has been admitted twice here over the last month for CHF exacerbation she states that they have recently increased her Bumex she is also on other blood pressure medicines including Toprol and propanolol. She states she is going to see her dealer accounts investigator today and they checked her blood pressure was in the 80s they called her to come to the ER her blood pressure is 89/63 states she has been gaining some more water weight she is awake and alert answering my question appropriately she has some mild chest pain denies any fevers denies any worsening improving factors. She is hypotensive here. FORMERLY [facility], [facility] ED PFSH: Medical History Acute kidney injury superimposed on CKD Acute metabolic encephalopathy Acute respiratory failure with hypoxia and hypercapnia Asthma Atrial fibrillation CAD (coronary artery disease) Dehydration Diastolic heart failure Dysphagia Essential tremor GERD (gastroesophageal reflux disease) HTN (hypertension) Hypokalemia Iron deficiency anemia Left ankle swelling Myoclonus Osteoarthritis Pacemaker Pacemaker syndrome Pleural effusion Pneumonia Sepsis Urinary tract infection Varicose veins of left lower extremity with other complications Surgical History Previous back surgery S/P cardiac pacemaker procedure S/P cataract extraction S/P hysterectomy S/P tubal ligation Family History Father , [place] age 44 Myocardial infarction Social History Smoking and tobacco status: never smoked Course Vital Signs: Vital signs: Vital Signs Temperature 97.3 F L 07/07/22 18:07 Pulse Rate 80 07/07/22 21:13 Respiratory Rate 20 H 07/07/22 21:13 Blood Pressure 101/69 07/07/22 21:13 Pulse Oximetry 91 07/07/22 21:13 Oxygen Delivery Me thod Room Air 07/07/22 21:13 MDM - General Adult Medical Decision Making Patient presents here with acute kidney injury likely to increase in her diuretic dose she also is hyperkalemic here as well patient was given insulin D50 along with calcium her blood pressure here is improved as well she has no signs of sepsis or infection spoke to hospitalist will admit to the ICU at this time. Lab Data 07/07/22 18:40 07/07/22 20:38 Radiology Impressions Chest X-Ray 07/07/22 18:08 IMPRESSION: 1. Unchanged small lung volumes with elevated right hemidiaphragm, right basilar consolidation and small right pleural effusion. This may represent persistent right basilar pneumonia. Interval decreased left basilar interstitial opacities. 2. Unchanged mild cardiomegaly. Laboratory Results WBC 4.5 10^3/uL (4.0-10.0) 07/07/22 18:40 RBC 3.00 10^6/uL (4.1-5.3) L 07/07/22 18:40 Hgb 8.5 g/dL (11.5-15.3) L 07/07/22 18:40 Hct 28.6 % (37.0-47.0) L 07/07/22 18:40 MCV 95.3 fl (81-99) 07/07/22 18:40 MCH 28.3 pg (28.0-34.0) 07/07/22 18:40 MCHC 29.7 g/dL (30.0-36.0) L 07/07/22 18:40 RDW 18.1 % (12.1-15.1) H 07/07/22 18:40 Plt Count 116 10^3/cmm (130-400) L 07/07/22 18:40 MPV 11.8 fL (7.4-10.4) H 07/07/22 18:40 Neut % (Auto) 59.8 % 07/07/22 18:40 Lymph % (Auto) 28.9 % 07/07/22 18:40 Gregg % (Auto) 7.8 % 07/07/22 18:40 Eos % (Auto) 1.8 % 07/07/22 18:40 Baso % (Auto) 1.3 % 07/07/22 18:40 Neut # (Auto) 2.69 10^3/uL (1.8-7.7) 07/07/22 18:40 Lymph # (Auto) 1.3 10^3/uL (0.8-4.8) 07/07/22 18:40 Gregg # (Auto) 0.4 10^3/uL (0.2-0.9) 07/07/22 18:40 Eos # (Auto) 0.1 10^3/uL (0.0-0.8) 07/07/22 18:40 Baso # (Auto) 0.1 10^3/uL (0.0-0.1) 07/07/22 18:40 Nucleated RBC % (auto) 0.7 % 07/07/22 18:40 Nucleated RBCs # 0.0 /100WBC 07/07/22 18:40 PT 18.50 SECONDS (12.1-14.9) H 07/07/22 18:40 INR 1.48 (0.8-1.2) H 07/07/22 18:40 Sodium 136 mmol/L (136-145) 07/07/22 18:40 Potassium 6.7 mmol/L (3.5-5.1) H* 07/07/22 20:38 Chloride 99 mmol/L (98-107) 07/07/22 18:40 Carbon Dioxide 26 mmol/L (22-29) 07/07/22 18:40 Anion Gap 18.1 (5-19) 07/07/22 18:40 BUN 49 mg/dL (8-23) H 07/07/22 18:40 Creatinine 3.2 mg/dL (0.5-0.9) H 07/07/22 18:40 GFR Calculation Not Reportable 07/07/22 18:40 Glucose 83 mg/dL (65-115) 07/07/22 18:40 Calculated Osmolality 294 mOsm/kg (285-295) 07/07/22 18:40 Lactate 2.4 mmol/L (0.5-2.2) H 07/07/22 18:40 Calcium 8.8 mg/dL (8.5-10.5) 07/07/22 18:40 Total Bilirubin 0.7 mg/dL (0.15-1.2) 07/07/22 18:40 AST 30 U/L (0-32) 07/07/22 18:40 ALT 13 U/L (0-33) 07/07/22 18:40 Alkaline Phosphatase 115 U/L (35-105) H 07/07/22 18:40 NT-Pro-B Natriuret Pep 1467 pg/mL (0-450) H 07/07/22 18:40 Total Protein 7.2 g/dL (6.6-8.7) 07/07/22 18:40 Albumin 3.8 g/dL (3.5-5.2) 07/07/22 18:40 Globulin 3.4 g/dL (1.3-4.6) 07/07/22 18:40 Urine Color Yellow (Yellow) 07/07/22 20:30 Urine Appearance Hazy (CLEAR) A 07/07/22 20:30 Urine pH 5 (5-7) 07/07/22 20:30 Ur Specific [place] 1.025 (1.005-1.030) 07/07/22 20:30 Urine Protein 1+ (Negative) H 07/07/22 20:30 Urine Glucose (UA) Norm (Normal) 07/07/22 20:30 Urine Ketones Negative (Negative) 07/07/22 20:30 Urine Blood Neg (Negative) 07/07/22 20:30 Urine Nitrate Negative (Negative) 07/07/22 20:30 Urine Bilirubin 1+ (Negative) H 07/07/22 20:30 Urine Urobilinogen Neg mg/dL (Negative) 07/07/22 20:30 Ur Leukocyte Esterase Negative (Negative) 07/07/22 20:30 Urine RBC None /hpf (0-2) 07/07/22 20:30 Urine WBC None /hpf (0-5) 07/07/22 20:30 Ur Squamous Epith Cells 0-4 /hpf (0-5) H 07/07/22 20:30 Amorphous Sediment Not Reportable 07/07/22 20:30 Urine Bacteria 1+ /hpf (NONE) H 07/07/22 20:30 Hyaline Casts 0-4 /lpf H 07/07/22 20:30 Urine Mucus 2+ /hpf 07/07/22 20:30 EKG Data EKG 1: I personally reviewed and interpreted this EKG as follows: EKG interpretation date: 07/07/22 EKG interpretation time: 18:11 Interpretation: paced hr [address] or t wave abnormalities qrs 172 qtc 473 Computer generated interpretation: Chest X-Ray 07/07/22 18:08 IMPRESSION: 1. Unchanged small lung volumes with elevated right hemidiaphragm, right basilar consolidation and small right pleural effusion. This may represent persistent right basilar pneumonia. Interval decreased left basilar interstitial opacities. 2. Unchanged mild cardiomegaly. Critical Care Time Critical Care Time: Critical Care Time: Yes Total Critical Care Time: 40 Attestation: The high probability of a clinically significant, sudden or life threatening deterioration of the patient's renal system(s) required my full and direct attention, intervention and personal management. The critical care time is as shown. This time is in addition to time spent performing any reported procedures but includes the following: [x] Data and vital sign review and interpretation [x] Patient assessment, examination and intervention [x] Documentation [x] Medication orders and management Discharge Plan Discharge Patient Disposition: Admitted As Inpatient Clinical Impression: Hyperkalemia, Acute kidney injury Condition: Stable Coding Level of Care Code ED Rotoprinter for Arturo Granados
[2022-07-07 18:54] LABS: Basophils # 0.1 10^3/uL (0.0-0.1); Basophils % 1.3 %; Eosinophils # 0.1 10^3/uL (0.0-0.8); Eosinophils % 1.8 %; Hematocrit 28.6 % (37.0-47.0); Hemoglobin 8.5 g/dL (11.5-15.3); Lymphocytes # 1.3 10^3/uL (0.8-4.8); Lymphocytes % 28.9 %; Mean Corpuscular HGB Conc 29.7 g/dL (30.0-36.0); Mean Corpuscular Hemoglobin 28.3 pg (28.0-34.0); Mean Corpuscular Volume 95.3 fl (81-99); Monocytes # 0.4 10^3/uL (0.2-0.9); Monocytes % 7.8 %; Neutrophils # 2.69 10^3/uL (1.8-7.7); Neutrophils % 59.8 %; Nucleated Red Blood Cells % 0.7 %; Platelet Count 116 10^3/cmm (130-400); Red Cell Distribution Width 18.1 % (12.1-15.1); White Blood Count 4.5 10^3/uL (4.0-10.0)
[2022-07-07 19:00] LABS: Mean Platelet Volume 11.8 fL (7.4-10.4)
[2022-07-07 19:18] LABS: INR 1.48 (0.8-1.2)
[2022-07-07 19:23] LABS: Lactate (Lactic Acid level) 2.4 mmol/L (0.5-2.2)
[2022-07-07 19:32] LABS: Alanine Aminotransferase 13 U/L (0-33); Albumin Level 3.8 g/dL (3.5-5.2); Alkaline Phosphatase 115 U/L (35-105); Blood Urea Nitrogen 49 mg/dL (8-23); Calcium 8.8 mg/dL (8.5-10.5); Carbon Dioxide 26 mmol/L (22-29); Chloride 99 mmol/L (98-107); Globulin 3.4 g/dL (1.3-4.6); Glucose 83 mg/dL (65-115); NT Pro B Type Natriuretic Pept 1467 pg/mL (0-450); Osmolality Calculated 294 mOsm/kg (285-295); Sodium 136 mmol/L (136-145); Total Bilirubin 0.7 mg/dL (0.15-1.2); Total Protein 7.2 g/dL (6.6-8.7)
[2022-07-07 19:36] LABS: Anion Gap 18.1 (5-19)
[2022-07-07 19:40] LABS: Aspartate Amino Transferase 30 U/L (0-32)
[2022-07-07 19:53] LABS: Potassium 7.1 mmol/L (3.5-5.1)
[2022-07-07] MEDS: sodium chloride 0.9% 500 ML 999 ML IV (20:00)
[2022-07-07] MEDS: calcium gluconate 0.1 gm/mL 10% SDV 10mL 1 GM IVP (21:06)
[2022-07-07 21:13] LABS: Add Urine Microscopic? YES; Bilirubin Urine 1+ (Negative); Blood Urine Neg (Negative); Glucose Urine UA Norm (Normal); Ketones Urine Negative (Negative); Leukocyte Esterase Urine Negative (Negative); Nitrate Urine Negative (Negative); Protein Urine 1+ (Negative); Specific Gravity, Urine 1.025 (1.005-1.030); Squamous Epithelial Cell Urine 0-4 /hpf (0-5); Urine Appearance Hazy (CLEAR); Urine Color Yellow (Yellow); Urobilinogen Urine Neg (Negative); pH Urine 5 (5-7)
[2022-07-07 21:14] LABS: Add Urine Culture? No; Bacteria Urine 1+ /hpf; Hyaline Casts Urine 0-4 /lpf; Mucus Urine 2+ /hpf
[2022-07-07 21:14] LABS: Potassium 6.7 mmol/L (3.5-5.1)
[2022-07-07] MEDS: insulin regular-human 100 units/1 mL 10 UNIT IVP (21:14)
[2022-07-07 21:37] LABS: Glucose Point of Care 182 mg/dL (70-110)
--- NOTE | 2022-07-07 22:33 | P.HP_ITS ---
Providers/Chief Complaint Admitting Physician: Armida Antonio MD Primary Care Provider: Neeraj Cardoza MD Chief Complaint: Low Blood pressure History of Present Illness Megan Das is a 82 year old female with past medical history of CHF, insomnia, chronic kidney disease, tremors, hypertension, hypokalemia, pacemaker, UTI, A-fib, asthma presented to the hospital today for generalized weakness and the fact that her blood pressure has been low. She states she has not been pee ing very much. Denies nausea vomiting diarrhea. Denies pain. Also feels a little short of breath. Denies chest pain at this time. She was recently discharged from the hospital. Diuretic regimen was adjusted at discharge. She follows with nephrology in [place] and was supposed to see them today however ended up coming to the ER. She states her main issue is that she feels that she has gained weight and she feels very edematous. She says she has barely been urinating despite taking all her medications. Says she is DNR/DNI. Alert oriented x3 at this time. Says she is too sleepy right now. Temperature noted to be low on arrival. Placed on a Kulwant hugger. On arrival to ER labs c hecked and potassium noted to be 7.1. She was given insulin, dextrose, calcium IV and admitted to ICU for further monitoring. Chest x-ray shows unchanged small lung volumes with elevated right mammary diaphragm right basilar consolidation and small right pleural effusion. This may represent persistent right basilar pneumonia. Interval decrease left basilar interstitial opacities. Unchanged mild cardiomegaly. Medications/Allergies Home Medications Medication Instructions Recorded Confirmed Last Taken Type eszopiclone 2 mg tablet (Lunesta) 2 mg PO BEDTIME 05/16/19 07/07/22 07/06/22 History hydrocodone 5 mg-acetaminophen 325 1 tab PO BID PRN Pain 05/16/19 07/07/22 07/06/22 History mg tablet lubiprostone 24 mcg capsule 24 mcg PO BID 05/16/19 07/07/22 06/22/22 History (Amitiza) multivitamin 1 tab PO BEDTIME 05/16/19 07/07/22 06/22/22 History ropinirole 2 mg tablet 2 mg PO BEDTIME 10/11/20 07/07/22 06/21/22 History budesonide 160 mcg-glycopyr 9 2 inh inhalation BID 12/02/21 04/25/23 04/10/23 History mcg-formot 4.8 mcg/actuation HFA inhaler (Breztri Aerosphere) sennosides 8.6 mg tablet (senna) See Rx Instructions .Route .COMPLEX 06/18/21 07/07/22 06/22/22 History vit C 250 mg-vit E 90 mg-zinc 40 1 tab PO BID 06/18/21 07/07/22 06/22/22 History mg-copper 1 wk-tgaxcb-nmhraw capsule (PreserVision AREDS-2) ferrous gluconate 324 mg (38 mg 324 mg PO DAILY 08/01/21 07/07/22 07/06/22 History iron) tablet nystatin 100,000 unit/mL oral 100,000 unit PO BID 08/01/21 07/07/22 10/01/21 History suspension furosemide 40 mg tablet 40 mg PO DAILY 01/19/22 07/07/22 06/22/22 History metoprolol succinate 25 mg 25 mg PO DAILY #90 tabs 03/10/22 07/07/22 06/21/22 Rx tablet,extended release 24 hr guaifenesin 100 mg/5 mL oral 200 mg (10 mL) PO Q4H PRN cough 03/26/22 07/07/22 Unknown Rx liquid (Mucinex Fast-Max Chest #473 mL Congestion) levalbuterol tartrate 45 2 inh inhalation Q6H #15 grams 03/26/22 07/07/22 06/22/22 Rx mcg/actuation aerosol inhaler (Xopenex HFA) lansoprazole 30 mg capsule,delayed 30 mg PO BID #180 caps 03/30/22 07/07/22 07/07/22 Rx release (Prevacid) montelukast 10 mg tablet 10 mg PO DAILY #30 tabs 06/02/22 07/07/22 06/21/22 Rx (Singulair) ipratropium bromide 21 mcg (0.03 2 spray intranasal TID PRN NASAL 06/22/22 07/07/22 Unknown History %) nasal spray DRAINAGE pregabalin 75 mg capsule (Lyrica) 75 mg PO DAILY 06/22/22 07/07/22 07/07/22 History propranolol 20 mg tablet 20 mg PO QAM 06/22/22 07/07/22 06/22/22 History levofloxacin 750 mg tablet 750 mg PO Q48H 14 days #7 tabs 06/27/22 07/07/22 Unknown Rx Allergies Allergy/AdvReac Type Severity Reaction Status Date / Time atropine Allergy Unknown Unknown Verified 07/02/22 11:11 benztropine Allergy Unknown Unknown Verified 07/02/22 11:11 cefadroxil Allergy Unknown Unknown Verified 07/02/22 11:11 cimetidine Allergy Unknown Unknown Verified 07/02/22 11:11 enalapril Allergy Unknown Unknown Verified 07/02/22 11:11 enalaprilat Allergy Unknown Unknown Verified 07/02/22 11:11 gabapentin Allergy Unknown Unknown Verified 07/02/22 11:11 Sulfa (Sulfonamide Allergy Unknown Unknown Verified 07/02/22 11:11 Antibiotics) tramadol Allergy Unknown ADR-Itching Verified 07/02/22 11:11 zolpidem Allergy Unknown Unknown Verified 07/02/22 11:11 albuterol Allergy ALGY-Swell Verified 07/02/22 11:11 Lip/Tongue/Throat PFSH Acute PFSH: Medical History Acute kidney injury superimposed on CKD Acute metabolic encephalopathy Acute respiratory failure with hypoxia and hypercapnia Asthma Atrial fibrillation CAD (coronary artery disease) Dehydration Diastolic heart failure Dysphagia Essential tremor GERD (gastroesophageal reflux disease) HTN (hypertension) Hypokalemia Iron deficiency anemia Left ankle swelling Myoclonus Osteoarthritis Pacemaker Pacemaker syndrome Pleural effusion Pneumonia Sepsis Urinary tract infection Varicose veins of left lower extremity with other complications Surgical History Previous back surgery S/P cardiac pacemaker procedure S/P cataract extraction S/P hysterectomy S/P tubal ligation Family History Father , [place] age 44 Myocardial infarction Social History Smoking and tobacco status: never smoked Vitals/I&O/Wt Last Vital Signs Temp 97.3 F L 07/07/22 18:07 Pulse 95 07/07/22 21:55 Resp 20 H 07/07/22 21:55 BP 90/58 07/07/22 21:55 Pulse Ox 92 07/07/22 21:55 O2 Del Method Room Air 07/07/22 21:34 07/07/22 07/07/22 07/07/22 06:59 14:59 22:59 Intake Total 550 / 550 Balance 550 / 550 Weight last 48 hrs Weight 94.347 kg Weight 89.358 kg Physical Exam Narrative: General: Alert oriented x3, patient seen in bed. Lethargic and sleepy however alert and awake. HEENT: Normocephalic, atraumatic, EOMI, breathing comfortably on 3 L nasal cannula. Cardio: Regular rate rhythm, normal S1-S2, Respiratory: Clear to auscultation bilaterally no wheezes no rhonchi no crackles appreciated at this time. Diminished slightly at bases. GI: Abdomen soft, nontender, bowel sounds + Extremities: Paralyzed anasarca. 4+ pitting edema bilateral lower extremities up to thighs. Urinary Catheter Management: Weber: Cath Placed During This Visit: yes Urinary Catheter Date of Insertion: 07/07/22 Urinary Catheter Time of Insertion: 20:33 Data 07/07/22 18:40 07/08/22 01:14 A&P Assessment and plan (1) Hyperkalemia: (2) COPD (chronic obstructive pulmonary disease): (3) LRTI (lower respiratory tract infection): (4) Acute kidney injury: (5) Peripheral arterial disease: (6) Acquired elevated hemidiaphragm: Plan #Acute renal failure on CKD, oliguric #Acute on chronic congestive systolic and diastolic heart failure #Generalized anasarca #Hypothermia #Hypotension #COPD/asthma #Acute hyperkalemia #History of hypertension #Lethargy/fatigue ? Lactic acid 2.4, hypothermic at 95.4, hypotensive, probable sepsis/shock, unknown source -Reviewed previous echo done at last admission. EF 47%, diastolic failure present. ? Check blood culture, urine culture, sputum Gram culture ? Active rewarming protocol, apply Kulwant hugger ? Placed on normal saline 75 cc/h, albumin IV 25 3 times daily ? Hold diuretics at this time. Patient appears dry. Also will try a fluid challenge ? Placed on Zosyn empirically ? Baseline creatinine 1.3-1.4. She is at 3.8 today. I believe her generalized anasarca is due to renal failure contributing to heart failure exacerbation. Patient agreeable to dialysis if needed ? Place Weber catheter and monitor strict urine output. ? Hyperkalemia treated with insulin, dextrose, Kayexalate, calcium gluconate. We will repeat a BMP and manage accordingly ? Discussed with financial planning adviser over the phone who agrees with the above plan at this time ? Will renally dose vancomycin x1 ? Recheck lactic acid in a.m. ? Hold metoprolol, propanolol, gabapentin ? Continue Protonix 40 daily ? Nephrology consulted. - We will recheck limited echo -Check frequent labs. BMP twice daily. ? Check Vanco trough -Check troponin series -Consider cardiology consult DNR/DNI SCDs, heparin SQ twice daily Attestations Medical Necessity Statement*: Greater than 2 midnight stay expected. Continue to monitor in ICU for management of acute renal failure Other Coding Information Focused coding review requested Diagnoses Hyperkalemia E87.5 COPD (chronic obstructive pulmonary disease) J44.9 LRTI (lower respiratory tract infection) J22 Acute kidney injury N17.9 Peripheral arterial disease I73.9 Acquired elevated hemidiaphragm J98.6
[2022-07-07] MEDS: sodium polystyrene sulfonate 15 gm/60 mL Btl PO (23:25)
[2022-07-07] MEDS: heparin 5,000 unit/mL INJ 1 mL 5000 UNIT SUBCUT (23:26)
[2022-07-08] VITALS (48 sets, daily range): BP systolic 64–139; BP diastolic 46–72; PULSE 80–84; RESP 12–29; TEMP 35.2–36.7; O2SAT 64–100; BMI 34.4
[2022-07-08] MEDS: sodium chloride 0.9% 1,000 ML 75 ML IV ×2 (00:54→12:02)
[2022-07-08] MEDS: albumin 12.5 GM/250 ML VIAL IV (00:54)
[2022-07-08] MEDS: piperacillin-tazobactam 3.375 GM in sodium chloride 0.9% (plus) 50 ML IV ×2 (01:23→12:46)
--- NOTE | 2022-07-08 02:44 | PC.NURSE ---
Dr. Antonio at bedside around 0040. Discussed BP being in 90's/80s, edema, and low urine output. Order for NS to run at 75ml/hr and order for albumin.
--- NOTE | 2022-07-08 03:25 | ECG_ITS ---
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 Measurements Intervals [place] Rate: 80 P: 0 NC: 0 QRS: -66 QRSD: 217 T: 122 QT: 491 QTc: 566 Interpretive Statements ELECTRONIC VENTRICULAR PACEMAKER ABNORMAL RHYTHM ECG Compared to ECG 07/07/2022 18:11:59 No significant changes Electronically Signed On 07-08-2022 11:00:20 CDT by Romain Cadena M.D. [id number]
[2022-07-08] MEDS: vancomycin 750 MG in sodium chloride 0.9% 250 ML 250 MG IV (04:11)
[2022-07-08 04:30] LABS: Troponin(5th) Baseline 36 ng/L (0-10)
[2022-07-08 04:31] LABS: Lactic Sepsis W/Reflex 1.4 mmol/L (0.5-2.2)
[2022-07-08 04:32] LABS: Blood Urea Nitrogen 48 mg/dL (8-23); Calcium 8.5 mg/dL (8.5-10.5); Carbon Dioxide 26 mmol/L (22-29); Chloride 101 mmol/L (98-107); Glucose 67 mg/dL (65-115); Magnesium 2.3 mg/dL (1.7-2.3); Osmolality Calculated 297 mOsm/kg (285-295); Phosphorus 5.8 mg/dL (2.5-4.5); Sodium 138 mmol/L (136-145)
[2022-07-08 04:39] LABS: Anion Gap 17.7 (5-19)
[2022-07-08 04:40] LABS: Potassium 6.7 mmol/L (3.5-5.1)
--- NOTE | 2022-07-08 05:25 | ECG_ITS ---
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 Measurements Intervals [place] Rate: 81 P: 0 [place]: 0 QRS: -68 QRSD: 212 T: 119 QT: 475 QTc: 552 Interpretive Statements ELECTRONIC VENTRICULAR PACEMAKER Compared to ECG 07/08/2022 03:42:12 No significant changes Electronically Signed On 07-08-2022 11:02:58 CDT by Romain Cadena M.D. [id number]
[2022-07-08] MEDS: calcium gluconate 0.1 gm/mL 10% SDV 10mL 1 GM IVP (06:38)
[2022-07-08] MEDS: insulin regular-human 10 UNIT in SYRINGE 1 EACH IVP (06:39)
[2022-07-08] MEDS: sodium bicarbonate 1 mEq/mL SDV 50mL 50 MEQ IVP (07:40)
[2022-07-08] MEDS: sodium polystyrene sulfonate 15 gm/60 mL Btl 30 GM PR (07:43)
[2022-07-08 07:45] LABS: Basophils # 0.1 10^3/uL (0.0-0.1); Basophils % 1.3 %; Eosinophils # 0.1 10^3/uL (0.0-0.8); Eosinophils % 2.5 %; Hematocrit 27.5 % (37.0-47.0); Hemoglobin 8.1 g/dL (11.5-15.3); Lymphocytes # 1.3 10^3/uL (0.8-4.8); Lymphocytes % 24.1 %; Mean Corpuscular HGB Conc 29.5 g/dL (30.0-36.0); Mean Corpuscular Hemoglobin 28.5 pg (28.0-34.0); Mean Corpuscular Volume 96.8 fl (81-99); Monocytes # 0.2 10^3/uL (0.2-0.9); Monocytes % 4.2 %; Neutrophils # 3.53 10^3/uL (1.8-7.7); Neutrophils % 67.5 %; Nucleated Red Blood Cells # 0.1 /100WBC; Nucleated Red Blood Cells % 1.3 %; Platelet Count 100 10^3/cmm (130-400); Red Blood Count 2.84 10^6/uL (4.1-5.3); Red Cell Distribution Width 17.9 % (12.1-15.1); White Blood Count 5.2 10^3/uL (4.0-10.0)
[2022-07-08 08:21] LABS: Anion Gap 17.5 (5-19); Blood Urea Nitrogen 47 mg/dL (8-23); Calcium 8.6 mg/dL (8.5-10.5); Carbon Dioxide 23 mmol/L (22-29); Chloride 104 mmol/L (98-107); Glucose 107 mg/dL (65-115); Osmolality Calculated 301 mOsm/kg (285-295); Potassium 5.5 mmol/L (3.5-5.1); Sodium 139 mmol/L (136-145)
--- NOTE | 2022-07-08 08:55 | PC.NURSE ---
Patient resting in bed, Dr. Solis rounded this morning, received orders to hold albumin. bedside.
--- NOTE | 2022-07-08 10:02 | ECG_ITS ---
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 Measurements Intervals [place] Rate: 82 P: 0 HI: 0 QRS: -63 QRSD: 155 T: 125 QT: 416 QTc: 486 Interpretive Statements ELECTRONIC VENTRICULAR PACEMAKER Compared to ECG 07/08/2022 06:06:17 No significant changes Electronically Signed On 07-08-2022 11:02:44 CDT by Romain Cadena M.D. [id number]
[2022-07-08] MEDS: heparin 5,000 unit/mL INJ 1 mL 5000 UNIT SUBCUT ×2 (11:01→22:24)
[2022-07-08 11:16] LABS: Troponin 5 6HR 36.76 ng/L (0-10)
[2022-07-08 11:18] LABS: Troponin 5 6HR Delta 0.76 ng/L (0-12)
--- NOTE | 2022-07-08 16:39 | PM.PN ---
Subjective Subjective: Patient is awake. She endorses cough. Endorses generalized fatigue and malaise. Her spouse is bedside and supportive. Medications: Reviewed: Yes Vitals/I&O/Wt Last Vital Signs Temp 96.1 F L 07/08/22 04:00 Pulse 81 07/08/22 14:00 Resp 14 07/08/22 12:30 BP 88/63 07/08/22 12:30 Pulse Ox 99 07/08/22 12:30 O2 Del Method Nasal Cannula 07/08/22 04:00 O2 Flow Rate 3 07/08/22 04:00 07/08/22 07/08/22 07/08/22 06:59 14:59 22:59 Intake Total 665.494 / 9473.705 3093.557 / 1435.557 Output Total 50 / 150 Balance 615.494 / 7779.046 1750.557 / 1435.557 Weight last 48 hrs Weight 94.064 kg Weight 94.347 kg Weight 89.358 kg Physical Exam Narrative: General: Patient is awake. Frail. Ill-appearing. Head: Normocephalic. Atraumatic. EOM intact. Dry mucous membranes. Neck: No JVD. Cardiovascular: No gallops. No murmurs. Lower extremity edema. Delayed capillary refill. Lungs: Clear to auscultation, no use of accessory muscles, no crackles or wheezes. Skin: No jaundice. No rashes. Abdomen: Normal bowel sounds, abdomen soft and nontender. Genito Urinary: Genital exam not performed since complaints not related. Rectal: Rectal exam not performed since no symptoms indicated blood loss. Extremities: No cyanosis or clubbing. Musculoskeletal: No erythematous joints. Neurological: Moves all 4 extremities. No myoclonus. Urinary Catheter Management: Weber: Cath Placed During This Visit: yes Reason for Continuing Indwelling Catheter: Accurate Measurement of Urinary Output in Critically Ill Patients Urinary Catheter Date of Insertion: 07/07/22 Urinary Catheter Time of Insertion: 20:33 Data 07/08/22 07:35 07/08/22 07:35 Micro: Microbiology 07/08/22 01:17 Blood Culture - Preliminary Blood SPECIMEN COLLECTED 07/08/22 01:14 Blood Culture - Preliminary Blood SPECIMEN COLLECTED A&P Assessment and plan (1) Septic shock: Continue Levophed support Telemetry monitoring Strict I's and O's Catheter for strict I's and O's Follow-up cultures Continue albumin for now Continue IV fluids Continue Zosyn Continue vancomycin (2) Hyperkalemia: Status post pharmacological treatment Telemetry monitoring Trend (3) Acute kidney injury: Continue IV fluids Strict I's and O's Daily weights Suspect prerenal versus ATN in the setting of sepsis (4) COPD (chronic obstructive pulmonary disease): Breathing treatments as needed (5) LRTI (lower respiratory tract infection): Broad-spectrum antibiotics as above (6) Heart failure: Will likely need diuresis after shock resolves Echo is pending Plan DVT prophylaxis: Heparin CODE STATUS: Allow natural Attestations Medical Necessity Statement*: Patient is in septic shock on vasopressor support requiring ongoing hospitalization for IV antibiotics, vasopressors, and supportive care. Critical Care Time: The high probability of a clinically significant, sudden or life threatening deterioration of the patient's cardiovascular, vascular system(s) required my full and direct attention, intervention and personal management. The critical care time is as shown. This time is in addition to time spent performing any reported procedures but includes the following: [x] Data and vital sign review and interpretation [x] Patient assessment, examination and intervention [x] Documentation [x] Medication orders and management Critical Care Time (min): 45 Coding Level of Care Code Acute Code for [facility] Diagnoses Septic shock A41.9; R65.21 Hyperkalemia E87.5 Acute kidney injury N17.9 COPD (chronic obstructive pulmonary disease) J44.9 LRTI (lower respiratory tract infection) J22 Heart failure I50.9
--- NOTE | 2022-07-08 19:42 | P.CONIM_ITS ---
Providers/Reason For Consult Consulting Physician/Specialty*: [facility]/nephrology Reason for Consult*: ANI, hyperkalemia Attending Physician: Jose Solis MD Primary Care Provider: Neeraj Cardoza MD History of Present Illness History of Present Illness Megan Das is a 82 year old female with past medical history of CHF, insomnia, chronic kidney disease, tremors, hypertension, hypokalemia, pacemaker, UTI, A-fib, asthma presented to the hospital today for generalized weakness . Pt was hypotensive and was placed on Levophed , and transferred to ICU. Pt was recently discharged from the hospital recently for CHF and had ANI , diuretics were adjusted. Cr at discharge was 1.3 Pt now presented with Cr of 3.1 , with severe hyperkalemia . Med mx was done for Hyperkalemia and K was 5.5. UOP low , on 3L NC . Review of Systems Narrative: OTHER ros negative Medications/Allergies Home Medications Medication Instructions Recorded Confirmed Last Taken Type eszopiclone 2 mg tablet (Lunesta) 2 mg PO BEDTIME 05/16/19 07/07/22 07/06/22 History hydrocodone 5 mg-acetaminophen 325 1 tab PO BID PRN Pain 05/16/19 07/07/22 07/06/22 History mg tablet lubiprostone 24 mcg capsule 24 mcg PO BID 05/16/19 07/07/22 06/22/22 History (Amitiza) multivitamin 1 tab PO BEDTIME 05/16/19 07/07/22 06/22/22 History ropinirole 2 mg tablet 2 mg PO BEDTIME 10/11/20 07/07/22 06/21/22 History budesonide 160 mcg-glycopyr 9 2 inh inhalation BID 02/13/21 07/07/22 06/22/22 History mcg-formot 4.8 mcg/actuation HFA inhaler (Breztri Aerosphere) sennosides 8.6 mg tablet (senna) See Rx Instructions .Route .COMPLEX 06/18/21 07/07/22 06/22/22 History vit C 250 mg-vit E 90 mg-zinc 40 1 tab PO BID 06/18/21 07/07/22 06/22/22 History mg-copper 1 ki-tjqysx-lhibif capsule (PreserVision AREDS-2) ferrous gluconate 324 mg (38 mg 324 mg PO DAILY 08/01/21 07/07/22 07/06/22 History iron) tablet nystatin 100,000 unit/mL oral 100,000 unit PO BID 08/01/21 07/07/22 10/01/21 History suspension furosemide 40 mg tablet 40 mg PO DAILY 01/19/22 07/07/22 06/22/22 History metoprolol succinate 25 mg 25 mg PO DAILY #90 tabs 03/10/22 07/07/22 06/21/22 Rx tablet,extended release 24 hr guaifenesin 100 mg/5 mL oral 200 mg (10 mL) PO Q4H PRN cough 03/26/22 07/07/22 Unknown Rx liquid (Mucinex Fast-Max Chest #473 mL Congestion) levalbuterol tartrate 45 2 inh inhalation Q6H #15 grams 03/26/22 07/07/22 06/22/22 Rx mcg/actuation aerosol inhaler (Xopenex HFA) lansoprazole 30 mg capsule,delayed 30 mg PO BID #180 caps 03/30/22 07/07/22 07/07/22 Rx release (Prevacid) montelukast 10 mg tablet 10 mg PO DAILY #30 tabs 06/02/22 07/07/22 06/21/22 Rx (Singulair) ipratropium bromide 21 mcg (0.03 2 spray intranasal TID PRN NASAL 06/22/22 07/07/22 Unknown History %) nasal spray DRAINAGE pregabalin 75 mg capsule (Lyrica) 75 mg PO DAILY 06/22/22 07/07/22 07/07/22 History propranolol 20 mg tablet 20 mg PO QAM 06/22/22 07/07/22 06/22/22 History levofloxacin 750 mg tablet 750 mg PO Q48H 14 days #7 tabs 06/27/22 07/07/22 Unknown Rx Allergies Allergy/AdvReac Type Severity Reaction Status Date / Time atropine Allergy Unknown Unknown Verified 07/02/22 11:11 benztropine Allergy Unknown Unknown Verified 07/02/22 11:11 cefadroxil Allergy Unknown Unknown Verified 07/02/22 11:11 cimetidine Allergy Unknown Unknown Verified 07/02/22 11:11 enalapril Allergy Unknown Unknown Verified 07/02/22 11:11 enalaprilat Allergy Unknown Unknown Verified 07/02/22 11:11 gabapentin Allergy Unknown Unknown Verified 07/02/22 11:11 Sulfa (Sulfonamide Allergy Unknown Unknown Verified 07/02/22 11:11 Antibiotics) tramadol Allergy Unknown ADR-Itching Verified 07/02/22 11:11 zolpidem Allergy Unknown Unknown Verified 07/02/22 11:11 albuterol Allergy ALGY-Swell Verified 07/02/22 11:11 Lip/Tongue/Throat Current Medications Generic Name Dose Route Start Last Admin Trade Name Freq PRN Reason Stop Dose Admin Heparin Sodium (Porcine) 5,000 unit 07/07/22 22:45 07/08/22 11:01 Heparin 5,000 Unit/Ml Inj 1 Ml SUBCUT 5,000 unit Q12H KACEY Administration Sodium Chloride 1,000 mls @ 75 mls/hr 07/07/22 22:45 07/08/22 12:02 Sodium Chloride 0.9% IV 75 mls/hr .[id number] KACEY Administration Piperacillin Sod/Tazobactam 50 mls @ 12.5 mls/hr 07/08/22 01:00 07/08/22 16:55 Sod 3.375 gm/ Sodium Chloride IV Infused Q12H KACEY Infusion Albumin Human 25 g in 100 mls @ 60 mls/hr 07/08/22 09:00 07/08/22 16:54 Albumin IV Not Given Q8H KACEY Norepinephrine Bitartrate 4 mg 254 mls @ 0 mls/hr 07/08/22 03:15 07/08/22 17:09 / Dextrose IV 2 mcg/min .Q0M KACEY 7.62 mls/hr Titration Protocol Per Protocol Vancomycin HCl 750 mg/ Sodium 250 mls @ 250 mls/hr 07/08/22 04:00 07/08/22 05:11 Chloride IV Infused Q36H KACEY Infusion Non-Formulary Medication 10 gm 07/08/22 09:30 07/08/22 10:21 Lokelma PO Not Given CONT KACEY PFSH Acute PFSH: Medical History Acute kidney injury superimposed on CKD Acute metabolic encephalopathy Acute respiratory failure with hypoxia and hypercapnia Asthma Atrial fibrillation CAD (coronary artery disease) Dehydration Diastolic heart failure Dysphagia Essential tremor GERD (gastroesophageal reflux disease) HTN (hypertension) Hypokalemia Iron deficiency anemia Left ankle swelling Myoclonus Osteoarthritis Pacemaker Pacemaker syndrome Pleural effusion Pneumonia Sepsis Urinary tract infection Varicose veins of left lower extremity with other complications Surgical History Previous back surgery S/P cardiac pacemaker procedure S/P cataract extraction S/P hysterectomy S/P tubal ligation Family History Father , [place] age 44 Myocardial infarction Social History Smoking and tobacco status: never smoked Vitals/I&O/Wt Last Vital Signs Temp 96.1 F L 07/08/22 04:00 Pulse 80 07/08/22 16:30 Resp 18 07/08/22 16:30 BP 78/58 07/08/22 16:00 Pulse Ox 64 L 07/08/22 16:30 O2 Del Method Nasal Cannula 07/08/22 04:00 O2 Flow Rate 3 07/08/22 04:00 07/08/22 07/08/22 07/08/22 06:59 14:59 22:59 Intake Total 665.494 / 6259.986 7877.557 / 1435.557 290 / 1725.557 Output Total 50 / 150 Balance 615.494 / 9602.709 3325.557 / 1435.557 290 / 1725.557 Weight last 48 hrs Weight 94.064 kg Weight 94.347 kg Weight 89.358 kg Physical Exam Narrative: pt awake , alert HEENT PEERLA S1 S2 RRR Lungs clearbil per report no edema Urinary Catheter Management: Weber: Cath Placed During This Visit: yes Reason for Continuing Indwelling Catheter: Accurate Measurement of Urinary Output in Critically Ill Patients Urinary Catheter Date of Insertion: 07/07/22 Urinary Catheter Time of Insertion: 20:33 Data 07/08/22 07:35 07/08/22 07:35 Micro: Microbiology 07/08/22 01:17 Blood Culture - Preliminary Blood SPECIMEN COLLECTED 07/08/22 01:14 Blood Culture - Preliminary Blood SPECIMEN COLLECTED A&P Assessment and plan (1) Acute kidney injury: 1. Acute on CKD 3 : Cr baseline mid 1 range. Now presents with ANI with Cr 3.1 associated with Hyperkalemia and volume overload. ANI likely - oLiguric ,pt DNR/I , but agrees for temporary HD if needed -May not telerate HD while on pressors. - continue to monitor renal function closely , Avoid Nephrotoxins and IV contrast studies 2. hyperkalemia : s/p med mx , K is 5.5 currently 3. H/o CHF 4. Metabolic acidosis , mild , monitor Consult Attestations Medical Necessity Statement: per medicine Coding Level of Care Code Acute Code for [facility] Diagnoses Acute kidney injury N17.9
[2022-07-09] VITALS (43 sets, daily range): BP systolic 85–116; BP diastolic 50–75; PULSE 80–84; RESP 10–22; TEMP 34.4–37.1; O2SAT 86–100
[2022-07-09] MEDS: sodium chloride 0.9% 1,000 ML 75 ML IV (01:29)
[2022-07-09] MEDS: piperacillin-tazobactam 3.375 GM in sodium chloride 0.9% (plus) 50 ML IV ×2 (01:30→13:24)
--- NOTE | 2022-07-09 03:22 | USCV_ITS ---
Megan Das Age: 82 Gender: F : 1940 Exam Date: 07/09/2022 16:00 Ordering Phys: Armida Antonio MD Technologist: Jairo Ruiz Exam Location: [facility] [place] Indication: HF, assess EF BP: 92 / 49 HR: Rhythm: Sinus Technical Quality: Adequate MEASUREMENTS (Male / Female) Normal Values 2D ECHO LVOT Diameter 2.0 cm LV Ejection Fraction MOD 2C 66.9 % LV Ejection Fraction 2C AL 68.9 % LA Diameter 4.6 cm LA Width 3.7 cm LA Height 6.5 cm RA Width 5.8 cm RA Height 6.7 cm Aorta at Sinotubular Diameter 2.3 cm IVC Diameter 2.6 cm M-MODE Aortic Annulus Diameter 2.6 cm LA Ao Ratio MM 1.7 MV E Point Septal Separation 0.5 cm DOPPLER Right Atrial Pressure 15.0 mmHg FINDINGS Left Ventricle Normal left ventricular size and systolic function, EF 61 %. No regional wall motion abnormalities. Right Ventricle Moderately increased right ventricular size. Mildly decreased right ventricular systolic function. Catheter/pacemaker wire in the right ventricular cavity. Right Atrium Moderately increased right atrial size. Catheter/pacemaker wire in the right atrial appendage. Left Atrium Moderately increased left atrial size. Mitral Valve No gross abnormalities noted . Aortic Valve No gross abnormalities noted Tricuspid Valve No gross abnormalities noted Pulmonic Valve No gross abnormalities noted Pericardium No pericardial effusion Aorta Normal aortic annulus size. IVC Dilated IVC with decreased respiratory variation. CONCLUSIONS Normal left ventricular size and systolic function, EF 61 %. No regional wall motion abnormalities. Moderately increased right ventricular size. Mildly decreased right ventricular systolic function. Catheter/pacemaker wire in the right ventricular cavity. Moderately increased right atrial size. Catheter/pacemaker wire in the right atrial appendage. Moderately increased left atrial size. No pericardial effusion Dilated IVC with decreased respiratory variation. There is no pericardial effusion. There are no intracardiac masses. Compared to the study from 06/22/2022, there is improvement in the LV ejection fraction Dr Judy Chase MD FACC (Electronically Signed) Final Date: 09 July 2022 18:21 S
[2022-07-09 07:57] LABS: Basophils # 0.1 10^3/uL (0.0-0.1); Basophils % 1.1 %; Eosinophils # 0.1 10^3/uL (0.0-0.8); Eosinophils % 2.2 %; Hematocrit 28.4 % (37.0-47.0); Hemoglobin 8.1 g/dL (11.5-15.3); Lymphocytes # 1.8 10^3/uL (0.8-4.8); Mean Corpuscular HGB Conc 28.5 g/dL (30.0-36.0); Mean Corpuscular Hemoglobin 28.2 pg (28.0-34.0); Monocytes # 0.4 10^3/uL (0.2-0.9); Monocytes % 7.9 %; Neutrophils # 2.87 10^3/uL (1.8-7.7); Neutrophils % 53.7 %; Nucleated Red Blood Cells # 0.1 /100WBC; Nucleated Red Blood Cells % 2.2 %; Platelet Count 91 10^3/cmm (130-400); Red Blood Count 2.87 10^6/uL (4.1-5.3); Red Cell Distribution Width 18.3 % (12.1-15.1); White Blood Count 5.4 10^3/uL (4.0-10.0)
[2022-07-09 08:17] LABS: Alanine Aminotransferase 10 U/L (0-33); Albumin Level 3.2 g/dL (3.5-5.2); Alkaline Phosphatase 88 U/L (35-105); Anion Gap 17.5 (5-19); Aspartate Amino Transferase 20 U/L (0-32); Blood Urea Nitrogen 48 mg/dL (8-23); Calcium 8.3 mg/dL (8.5-10.5); Carbon Dioxide 24 mmol/L (22-29); Chloride 101 mmol/L (98-107); Globulin 2.9 g/dL (1.3-4.6); Glucose 74 mg/dL (65-115); Magnesium 2.2 mg/dL (1.7-2.3); Osmolality Calculated 295 mOsm/kg (285-295); Phosphorus 6.4 mg/dL (2.5-4.5); Potassium 5.5 mmol/L (3.5-5.1); Sodium 137 mmol/L (136-145); Total Bilirubin 0.8 mg/dL (0.15-1.2); Total Protein 6.1 g/dL (6.6-8.7)
[2022-07-09 08:23] LABS: Slide Review Slide Review Perform
--- NOTE | 2022-07-09 09:03 | P.PN_ITS ---
Subjective Subjective: on 3L Medications: Reviewed: Yes Vitals/I&O/Wt Last Vital Signs Temp 98.7 F 07/09/22 00:00 Pulse 80 07/09/22 08:00 Resp 14 07/09/22 08:00 BP 98/68 07/09/22 08:00 Pulse Ox 86 L 07/09/22 08:00 O2 Del Method Nasal Cannula 07/08/22 04:00 O2 Flow Rate 2 07/08/22 20:00 07/08/22 07/09/22 07/09/22 22:59 06:59 14:59 Intake Total 400 / 6446.503 1942 / 2935.557 240 / 240 Output Total 50 / 50 25 / 75 Balance 350 / 9468.361 9094 / 2860.557 240 / 240 Weight last 48 hrs Weight 94.064 kg Weight 94.347 kg Weight 89.358 kg Physical Exam Narrative: pt awake , alert HEENT PEERLA S1 S2 RRR Lungs clearbil per report + LE edema Urinary Catheter Management: Weber: Cath Placed During This Visit: yes Reason for Continuing Indwelling Catheter: Accurate Measurement of Urinary Output in Critically Ill Patients Urinary Catheter Date of Insertion: 07/07/22 Urinary Catheter Time of Insertion: 20:33 Data 07/09/22 07:45 07/09/22 07:45 Micro: Microbiology 07/08/22 01:17 Blood Culture - Preliminary Blood NEGATIVE TO DATE 07/08/22 01:14 Blood Culture - Preliminary Blood NEGATIVE TO DATE A&P Assessment and plan (1) Acute kidney injury: 1. Acute on CKD 3 : Cr baseline mid 1 range. Now presents with ANI with Cr 3.1 associated with Hyperkalemia and volume overload. ANI likely - oLiguric ,pt DNR/I , but agrees for temporary HD if needed -May not telerate HD while on pressors. will order CRRT , - continue to monitor renal function closely , Avoid Nephrotoxins and IV contrast studies 2. hyperkalemia : s/p med mx , K is 5.5 currently 3. H/o CHF 4. Metabolic acidosis , mild , monitor Plan per medicine Attestations Medical Necessity Statement*: per medicine Coding Level of Care Code Acute Code for [facility] Diagnoses Acute kidney injury N17.9
[2022-07-09] MEDS: heparin 5,000 unit/mL INJ 1 mL 5000 UNIT SUBCUT ×2 (10:50→22:34)
--- NOTE | 2022-07-09 11:29 | XR_ITS ---
WS: [id number] Exam: XR chest 1V portable [id number] Date/Time of Exam: 07/09/2022 11:29 AM Reason For Exam: central line placement Comparison 07/07/2022. A right-sided IJ line has been inserted and appears to end in the lower one third of the SVC. No pneu mothorax. Marked cardiac enlargement. Large volume right-sided pleural effusion with compressive atel ectasis of the middle and lower lobes the right lung. Pulmonary vascular congestion. Mild diffuse inf iltrate in the right upper lobe and the left lower lobe. An ICD superimposes the left chest. XR/XR chest 1V portable [id number] IMPRESSION: 1. Right-sided double-lumen central line in place ending in the lower one third of the SVC. 2. Increasing cardiac enlargement and pulmonary vascular congestion. This would suggest some degree of CHF. 3. Large volume right-sided pleural effusion with compressive atelectasis of th e middle and lower lobes the right lung. There is diffuse interstitial infiltra te in the right upper lobe and the left lower lobe.
--- NOTE | 2022-07-09 11:30 | P.PCN_ITS ---
Procedure Note: Date of procedure: 07/09/22 Pre-op diagnosis: renal failure Post-op diagnosis: same Procedure Performed: IJ dialysis catheter Procedure: right IJ dialysis catheter placement Surgeon: Cliff Garcia Estimated blood loss (mL): 10 Pathology: none sent Condition: stable Disposition: ICU Other Information: Procedure in detail: The patient's right neck was prepped and draped in usual sterile fashion. The patient had a pacemaker in her left neck/left chest this is why I chose the right neck. Prior to prepping and draping I ultrasounded the right internal jugular vein. It was easily visualized. It was large. 1% lidocaine without epinephrine was used anesthetize the skin. Now using the ultrasound the introducer needle was introduced through the skin into the right internal jugular vein. Venous blood was easily aspirated. The syringe was removed leaving the needle in place. There is no pulsatile blood. Now the guidewire was placed through this needle into the vein. Once again using ul trasound I was able to see the guidewire coursing distally through the right internal jugular vein. The needle was now removed using 11 blade a nazanin was made in the in the skin. Now a dilator was used to dilate up the subcutaneous tissues pressure was held over the catheter in order to prevent excessive bleeding. Now the dialysis catheter was threaded over the guidewire and secured at 16 to 17 cm. this was sutured in the place. The guidewire was removed. Both ports were aspirated easily. The patient tolerated procedure well. Chest x-ray is pending. Coding Level of Care Code Acute Code for [facility]
[2022-07-09] MEDS: PrismaSol BGK 4/2.5 - 5,000 mL Bag 5000 ML CRRT ×6 (12:41→22:23)
--- NOTE | 2022-07-09 12:41 | PM.PN ---
Subjective Subjective: central line appears to be in good position. No pneumothorax Vitals/I&O/Wt Last Vital Signs Temp 98.7 F 07/09/22 00:00 Pulse 80 07/09/22 08:00 Resp 14 07/09/22 08:00 BP 98/68 07/09/22 08:00 Pulse Ox 86 L 07/09/22 08:00 O2 Del Method Nasal Cannula 07/08/22 04:00 O2 Flow Rate 2 07/08/22 20:00 07/08/22 07/09/22 07/09/22 22:59 06:59 14:59 Intake Total 400 / 5971.988 6522 / 2935.557 240 / 240 Output Total 50 / 50 25 / 75 Balance 350 / 8730.965 8549 / 2860.557 240 / 240 Weight last 48 hrs Weight 207 lb 6 oz Weight 208 lb Weight 197 lb Physical Exam Urinary Catheter Management: Weber: Cath Placed During This Visit: yes Reason for Continuing Indwelling Catheter: Accurate Measurement of Urinary Output in Critically Ill Patients Urinary Catheter Date of Insertion: 07/07/22 Urinary Catheter Time of Insertion: 20:33 Data 07/09/22 07:45 07/09/22 07:45 Micro: Microbiology 07/08/22 01:11 Urine Culture - Preliminary Urine Catheterized 07/08/22 01:17 Blood Culture - Preliminary Blood NEGATIVE TO DATE 07/08/22 01:14 Blood Culture - Preliminary Blood NEGATIVE TO DATE Attestations Medical Necessity Statement*: per hospitalist Coding Level of Care Code Acute Code for [facility] Diagnoses
--- NOTE | 2022-07-09 12:44 | PC.NURSE ---
Telenephrology rounded this morning, received orders for CRRT. Dr. Solis notified and he consulted surgeon Dr. Garcia who placed dialysis line in right IJ. Placement verified by xray. CRRT initialized at 1230
[2022-07-09] MEDS: sodium chloride 0.9% 1,000 mL Bag CRRT (12:51)
[2022-07-09 13:28] LABS: Albumin Level 3.3 g/dL (3.5-5.2); Anion Gap 14.3 (5-19); Blood Urea Nitrogen 44 mg/dL (8-23); Carbon Dioxide 26 mmol/L (22-29); Chloride 102 mmol/L (98-107); Glucose 96 mg/dL (65-115); Magnesium 2.2 mg/dL (1.7-2.3); Phosphorus 5.6 mg/dL (2.5-4.5); Potassium 5.3 mmol/L (3.5-5.1); Sodium 137 mmol/L (136-145)
--- NOTE | 2022-07-09 14:01 | PM.PN ---
Subjective Subjective: Patient is awake. Endorses shortness of breath. She remains severely volume overloaded. Denies fevers, nausea or emesis. Medications: Reviewed: Yes Vitals/I&O/Wt Last Vital Signs Temp 98.7 F 07/09/22 00:00 Pulse 82 07/09/22 12:30 Resp 14 07/09/22 12:30 BP 94/53 07/09/22 12:30 Pulse Ox 93 07/09/22 12:30 O2 Del Method Nasal Cannula 07/08/22 04:00 O2 Flow Rate 2 07/08/22 20:00 07/08/22 07/09/22 07/09/22 22:59 06:59 14:59 Intake Total 400 / 0535.422 6270 / 2935.557 1322.5 / 1322.5 Output Total 50 / 50 25 / 75 Balance 350 / 7931.631 1551 / 2860.557 1322.5 / 1322.5 Weight last 48 hrs Weight 94.064 kg Weight 94.347 kg Weight 89.358 kg Physical Exam Narrative: General: Patient is awake. Lying in bed. Being fed breakfast. Head: Normocephalic. Atraumatic. EOM intact. Dry mucous membranes. Neck: No JVD. Cardiovascular: No gallops. No murmurs. Lower extremity edema, worse than prior exam. Lungs: Breath sounds are diminish in bilateral bases, no use of accessory muscles, no crackles or wheezes. Skin: No jaundice. No rashes. Abdomen: Normal bowel sounds, abdomen soft and nontender. Genito Urinary: Genital exam not performed since complaints not related. Rectal: Rectal exam not performed since no symptoms indicated blood loss. Extremities: No cyanosis or clubbing. Musculoskeletal: No erythematous joints. Neurological: Moves all 4 extremities. No myoclonus. Urinary Catheter Management: Weber: Cath Placed During This Visit: yes Reason for Continuing Indwelling Catheter: Accurate Measurement of Urinary Output in Critically Ill Patients Urinary Catheter Date of Insertion: 07/07/22 Urinary Catheter Time of Insertion: 20:33 Data 07/09/22 07:45 07/09/22 13:05 Micro: Microbiology 07/08/22 01:11 Urine Culture - Preliminary Urine Catheterized 07/08/22 01:17 Blood Culture - Preliminary Blood NEGATIVE TO DATE 07/08/22 01:14 Blood Culture - Preliminary Blood NEGATIVE TO DATE A&P Assessment and plan (1) Septic shock: Continue Levophed support, wean as tolerated Catheter for strict I's and O's Follow-up cultures Discontinue IV fluids Continue Zosyn Continue vancomycin, consider dc when BCx neg at 48 hrs (2) Hyperkalemia: Trend labs Nephro following (3) Acute kidney injury: ~75 mL urine overnight Strict I's and O's Daily weights Nephro following, anticipate CRRT (4) COPD (chronic obstructive pulmonary disease): Breathing treatments as needed (5) LRTI (lower respiratory tract infection): Broad-spectrum antibiotics as above (6) Heart failure: Urgent limited echo is pending Plan DVT prophylaxis: Heparin CODE STATUS: Allow natural Attestations Medical Necessity Statement*: Patient requires ongiong hospitalization for IV vasopressor support, IV abx, and CRRT dialysis. Critical Care Time: The high probability of a clinically significant, sudden or life threatening deterioration of the patient's cardiovascular, vascular system(s) required my full and direct attention, intervention and personal management. The critical care time is as shown. This time is in addition to time spent performing any reported procedures but includes the following: [x] Data and vital sign review and interpretation [x] Patient assessment, examination and intervention [x] Documentation [x] Medication orders and management Critical Care Time (min): 35 Coding Level of Care Code Acute Code for [facility] Diagnoses Septic shock A41.9; R65.21 Hyperkalemia E87.5 Acute kidney injury N17.9 COPD (chronic obstructive pulmonary disease) J44.9 LRTI (lower respiratory tract infection) J22 Heart failure I50.9
[2022-07-09] MEDS: vancomycin 750 MG in sodium chloride 0.9% 250 ML 250 MG IV (16:58)
[2022-07-09 17:57] LABS: Albumin Level 3.4 g/dL (3.5-5.2); Anion Gap 17.3 (5-19); Blood Urea Nitrogen 38 mg/dL (8-23); Calcium 7.8 mg/dL (8.5-10.5); Carbon Dioxide 25 mmol/L (22-29); Chloride 106 mmol/L (98-107); Glucose 130 mg/dL (65-115); Magnesium 2.2 mg/dL (1.7-2.3); Phosphorus 4.8 mg/dL (2.5-4.5); Potassium 5.3 mmol/L (3.5-5.1); Sodium 143 mmol/L (136-145)
--- NOTE | 2022-07-09 20:12 | PC.NURSE ---
Patient's temp noted to be low upon shift assessment. Dank Leger applied. Patient remains on CRRT and will continue to assess Temps hourly.
[2022-07-09 23:36] LABS: Albumin Level 3.3 g/dL (3.5-5.2); Anion Gap 12.8 (5-19); Blood Urea Nitrogen 32 mg/dL (8-23); Calcium 7.8 mg/dL (8.5-10.5); Carbon Dioxide 27 mmol/L (22-29); Chloride 104 mmol/L (98-107); Glucose 159 mg/dL (65-115); Magnesium 2.3 mg/dL (1.7-2.3); Phosphorus 4.1 mg/dL (2.5-4.5); Potassium 4.8 mmol/L (3.5-5.1); Sodium 139 mmol/L (136-145)
[2022-07-10] VITALS (53 sets, daily range): BP systolic 76–123; BP diastolic 47–80; PULSE 80–84; RESP 11–24; TEMP 34.1–36.9; O2SAT 90–100
[2022-07-10] MEDS: albumin 25 G/100 ML BAG 60 G IV ×3 (00:21→16:45)
[2022-07-10] MEDS: piperacillin-tazobactam 3.375 GM in sodium chloride 0.9% (plus) 50 ML IV ×2 (01:33→12:51)
--- NOTE | 2022-07-10 01:52 | PC.NURSE ---
Addendum entered by Bharath Peral RN 07/10/22 01:57: Hospitalist notified of condition Original Note: Rectal probe inserted to accurately assess patient's temperature. Patient continues to remain hypothermic despite bear hugger. CRRT adjusted down to 150ml/hr fluid rate to encourage temperature management. Patient's head wrapped and bear hugger on high setting. Patient remains alert and oriented.
[2022-07-10 03:26] LABS: Basophils # 0.1 10^3/uL (0.0-0.1); Eosinophils # 0.1 10^3/uL (0.0-0.8); Eosinophils % 2.6 %; Hemoglobin 7.7 g/dL (11.5-15.3); Lymphocytes # 1.8 10^3/uL (0.8-4.8); Lymphocytes % 35.9 %; Mean Corpuscular HGB Conc 28.5 g/dL (30.0-36.0); Mean Corpuscular Hemoglobin 28.4 pg (28.0-34.0); Mean Corpuscular Volume 99.6 fl (81-99); Monocytes # 0.3 10^3/uL (0.2-0.9); Monocytes % 6.2 %; Neutrophils # 2.68 10^3/uL (1.8-7.7); Neutrophils % 53.7 %; Nucleated Red Blood Cells # 0.2 /100WBC; Nucleated Red Blood Cells % 3.6 %; Platelet Count 70 10^3/cmm (130-400); Red Blood Count 2.71 10^6/uL (4.1-5.3); Red Cell Distribution Width 18.4 % (12.1-15.1)
[2022-07-10 03:55] LABS: Alanine Aminotransferase 10 U/L (0-33); Albumin Level 3.8 g/dL (3.5-5.2); Alkaline Phosphatase 94 U/L (35-105); Anion Gap 13.8 (5-19); Aspartate Amino Transferase 22 U/L (0-32); Blood Urea Nitrogen 29 mg/dL (8-23); Calcium 8.1 mg/dL (8.5-10.5); Carbon Dioxide 27 mmol/L (22-29); Chloride 104 mmol/L (98-107); Globulin 2.7 g/dL (1.3-4.6); Glucose 150 mg/dL (65-115); Magnesium 2.3 mg/dL (1.7-2.3); Osmolality Calculated 299 mOsm/kg (285-295); Potassium 4.8 mmol/L (3.5-5.1); Sodium 140 mmol/L (136-145); Total Protein 6.5 g/dL (6.6-8.7)
[2022-07-10 03:57] LABS: Vancomycin Random 15.1 ug/mL (20.0-40.0)
[2022-07-10 04:07] LABS: Slide Review Slide Review Perform
[2022-07-10] MEDS: [UNRECOGNIZED DRUG - OTHER] 5000 ML CRRT ×4 (06:22→08:58)
[2022-07-10 09:38] LABS: Albumin Level 3.9 g/dL (3.5-5.2); Anion Gap 16.1 (5-19); Blood Urea Nitrogen 25 mg/dL (8-23); Calcium 8.1 mg/dL (8.5-10.5); Carbon Dioxide 24 mmol/L (22-29); Chloride 104 mmol/L (98-107); Glucose 100 mg/dL (65-115); Magnesium 2.2 mg/dL (1.7-2.3); Potassium 5.1 mmol/L (3.5-5.1); Sodium 139 mmol/L (136-145)
[2022-07-10] MEDS: heparin 5,000 unit/mL INJ 1 mL 5000 UNIT SUBCUT (10:14)
--- NOTE | 2022-07-10 10:32 | PC.NURSE ---
Dr. Nguyen called, gave order to start NS at 150 ml/hr for CRRT replacement, plan to stop crrt at midnight and reassess in AM
[2022-07-10] MEDS: sodium chloride 0.9% 1,000 ML 150 ML IV ×3 (10:35→22:01)
--- NOTE | 2022-07-10 11:51 | P.PN_ITS ---
Subjective Subjective: CRRT tarted yesterday tolerating well Medications: Reviewed: Yes Vitals/I&O/Wt Last Vital Signs Temp 94.8 F L 07/10/22 04:30 Pulse 80 07/10/22 08:00 Resp 16 07/10/22 08:00 BP 92/51 07/10/22 08:00 Pulse Ox 93 07/10/22 08:00 O2 Del Method Nasal Cannula 07/09/22 20:00 O2 Flow Rate 3 07/09/22 20:00 07/09/22 07/10/22 07/10/22 22:59 06:59 14:59 Intake Total 947.957 / 2270.457 298.146 / 2568.603 Output Total 70 / 70 Balance 877.957 / 2200.457 276.146 / 2476.603 Weight last 48 hrs Weight 96.162 kg Physical Exam Narrative: pt awake , alert HEENT PEERLA S1 S2 RRR Lungs clearbil per report + LE edema Urinary Catheter Management: Weber: Cath Placed During This Visit: yes Reason for Continuing Indwelling Catheter: Accurate Measurement of Urinary Output in Critically Ill Patients Urinary Catheter Date of Insertion: 07/07/22 Urinary Catheter Time of Insertion: 20:33 Data 07/10/22 02:43 07/10/22 09:08 Micro: Microbiology 07/08/22 01:11 Urine Culture - Final Urine Catheterized A&P Assessment and plan (1) Acute kidney injury: 1. Acute on CKD 3 : Cr baseline mid 1 range. Now presents with ANI with Cr 3.1 associated with Hyperkalemia and volume overload. ANI likely - oLiguric ,pt DNR/I , but agrees for temporary HD if needed -- CRRT started yesterday , tolerated well - continue to monitor renal function closely , Avoid Nephrotoxins and IV contrast studies 2. hyperkalemia : improved on CRRT 3. H/o CHF 4. Metabolic acidosis , mild , monitor Plan per medicine Attestations Medical Necessity Statement*: PER MEDICINE Coding Level of Care Code Acute Code for [facility] Diagnoses Acute kidney injury N17.9
--- NOTE | 2022-07-10 13:07 | PC.SOCIAL ---
Pg 2 IMM Explained to pt's , Pg 2 IMM. No questions voiced. Provided pt a copy. Initialed, dated, & timed a copy & placed in chart.
[2022-07-10] MEDS: PrismaSol BGK 4/2.5 - 5,000 mL Bag 5000 ML CRRT ×4 (13:30→18:32)
--- NOTE | 2022-07-10 13:58 | PM.PN ---
Subjective Subjective: Patient reports she is feeling better today. She remains on CRRT and on Levophed. She does endorse shortness of breath and weakness. present later on during exam. He is supportive in her care. He does ask whether or not she will get strong enough for him to be able to take her home. Medications: Reviewed: Yes Vitals/I&O/Wt Last Vital Signs Temp 94.8 F L 07/10/22 04:30 Pulse 80 07/10/22 12:00 Resp 16 07/10/22 12:00 BP 82/57 07/10/22 12:00 Pulse Ox 92 07/10/22 12:00 O2 Del Method Nasal Cannula 07/09/22 20:00 O2 Flow Rate 3 07/09/22 20:00 07/09/22 07/10/22 07/10/22 22:59 06:59 14:59 Intake Total 947.957 / 2270.457 298.146 / 2568.603 105.854 / 105.854 Output Total 70 / 70 22 / 92 Balance 877.957 / 2200.457 276.146 / 2476.603 105.854 / 105.854 Weight last 48 hrs Weight 96.162 kg Physical Exam Narrative: General: Patient is awake. Lying in bed. Eyes covered w/ towel. Head: Normocephalic. Atraumatic. EOM intact. Neck: No JVD. Cardiovascular: No gallops. No murmurs. Lower extremity edema. Lungs: Breath sounds are diminish in bilateral bases, no use of accessory muscles, no crackles or wheezes. Skin: No jaundice. No rashes. Abdomen: Normal bowel sounds, abdomen soft and nontender. Genito Urinary: Genital exam not performed since complaints not related. Rectal: Rectal exam not performed since no symptoms indicated blood loss. Extremities: No cyanosis or clubbing. Musculoskeletal: No erythematous joints. Neurological: Moves all 4 extremities. No myoclonus. Urinary Catheter Management: Weber: Cath Placed During This Visit: yes Reason for Continuing Indwelling Catheter: Accurate Measurement of Urinary Output in Critically Ill Patients Urinary Catheter Date of Insertion: 07/07/22 Urinary Catheter Time of Insertion: 20:33 Data 07/10/22 02:43 07/10/22 09:08 Micro: Microbiology 07/08/22 01:11 Urine Culture - Final Urine Catheterized A&P Assessment and plan (1) Septic shock: Continue Levophed support, wean as tolerated Catheter for strict I's and O's Continue Zosyn Discontinue vancomycin when cultures are negative at 48 hours (2) Acute kidney injury: Remains in renal failure and on vasopressors Strict I's and O's Daily weights Nephro following, managing CRRT (3) COPD (chronic obstructive pulmonary disease): Breathing treatments as needed (4) LRTI (lower respiratory tract infection): Broad-spectrum antibiotics as above (5) Heart failure: Limited echo w/ EF 61%, no RWMA Volume control via dialysis (6) Hyperkalemia: Resolved w/ dialysis Plan DVT prophylaxis: Heparin CODE STATUS: Allow natural Attestations Medical Necessity Statement*: Patient requires ongoing hospitalization for IV abx, IV vasopressors, and CRRT. Critical Care Time: The high probability of a clinically significant, sudden or life threatening deterioration of the patient's cardiovascular, renal, vascular system(s) required my full and direct attention, intervention and personal management. The critical care time is as shown. This time is in addition to time spent performing any reported procedures but includes the following: [x] Data and vital sign review and interpretation [x] Patient assessment, examination and intervention [x] Documentation [x] Medication orders and management Critical Care Time (min): 35 Coding Level of Care Code Acute Code for g Fwd Diagnoses Septic shock A41.9; R65.21 Acute kidney injury N17.9 COPD (chronic obstructive pulmonary disease) J44.9 LRTI (lower respiratory tract infection) J22 Heart failure I50.9 Hyperkalemia E87.5
[2022-07-10 15:39] LABS: Albumin Level 3.8 g/dL (3.5-5.2); Anion Gap 15.1 (5-19); Blood Urea Nitrogen 21 mg/dL (8-23); Calcium 7.9 mg/dL (8.5-10.5); Carbon Dioxide 24 mmol/L (22-29); Chloride 103 mmol/L (98-107); Glucose 93 mg/dL (65-115); Magnesium 2.3 mg/dL (1.7-2.3); Phosphorus 3.5 mg/dL (2.5-4.5); Potassium 5.1 mmol/L (3.5-5.1); Sodium 137 mmol/L (136-145)
[2022-07-10 21:46] LABS: Albumin Level 4.1 g/dL (3.5-5.2); Anion Gap 13.9 (5-19); Blood Urea Nitrogen 17 mg/dL (8-23); Calcium 7.9 mg/dL (8.5-10.5); Carbon Dioxide 26 mmol/L (22-29); Chloride 103 mmol/L (98-107); Glucose 101 mg/dL (65-115); Magnesium 2.2 mg/dL (1.7-2.3); Potassium 4.9 mmol/L (3.5-5.1); Sodium 138 mmol/L (136-145)
--- NOTE | 2022-07-10 22:07 | PC.NURSE ---
Left a message with Dr. Fritz to report lab results and to clarify CRRT orders.
--- NOTE | 2022-07-10 23:08 | PC.NURSE ---
Left message with Dr. Fritz to review patient's labs and clarify CRRT orders.
--- NOTE | 2022-07-10 23:22 | PC.NURSE ---
Left message with [facility] answering service in the third attempt to reach a doctor to clarify orders.
--- NOTE | 2022-07-10 23:38 | PC.NURSE ---
Left message with Dr. Fritz.
[2022-07-11] VITALS (44 sets, daily range): BP systolic 77–119; BP diastolic 46–81; PULSE 80–83; RESP 13–28; TEMP 35.8–37.2; O2SAT 77–100
[2022-07-11] MEDS: piperacillin-tazobactam 3.375 GM in sodium chloride 0.9% (plus) 50 ML IV ×2 (00:44→12:49)
[2022-07-11] MEDS: albumin 25 G/100 ML BAG 60 G IV (00:44)
[2022-07-11] MEDS: vancomycin 750 MG in sodium chloride 0.9% 250 ML 250 MG IV (04:42)
[2022-07-11 04:50] LABS: Hematocrit 25.1 % (37.0-47.0); Hemoglobin 7.3 g/dL (11.5-15.3); Mean Corpuscular HGB Conc 29.1 g/dL (30.0-36.0); Mean Corpuscular Hemoglobin 28.3 pg (28.0-34.0); Mean Corpuscular Volume 97.3 fl (81-99); Platelet Count 49 10^3/cmm (130-400); Red Blood Count 2.58 10^6/uL (4.1-5.3); Red Cell Distribution Width 18.5 % (12.1-15.1); White Blood Count 4.8 10^3/uL (4.0-10.0)
[2022-07-11 04:59] LABS: Alanine Aminotransferase 8 U/L (0-33); Alkaline Phosphatase 71 U/L (35-105); Anion Gap 16.9 (5-19); Aspartate Amino Transferase 22 U/L (0-32); Blood Urea Nitrogen 17 mg/dL (8-23); Calcium 8.3 mg/dL (8.5-10.5); Carbon Dioxide 23 mmol/L (22-29); Chloride 105 mmol/L (98-107); Globulin 2.2 g/dL (1.3-4.6); Glucose 86 mg/dL (65-115); Magnesium 2.2 mg/dL (1.7-2.3); Osmolality Calculated 291 mOsm/kg (285-295); Phosphorus 2.9 mg/dL (2.5-4.5); Potassium 4.9 mmol/L (3.5-5.1); Sodium 140 mmol/L (136-145); Total Bilirubin 1.3 mg/dL (0.15-1.2); Total Protein 6.2 g/dL (6.6-8.7)
--- NOTE | 2022-07-11 05:40 | PC.NURSE ---
2300 PT's temp low. Kulwant Leger initiated. [address] Fritz. [address] Lynn to discuss plan of care. Reviewed patient's labs, vital signs, medications, and respiratory status. Orders to discontinue CRRT at this time. [address] Fritz. Reported lab results, vital signs, medications, and respiratory status. Orders to keep patient off CRRT at this time.
--- NOTE | 2022-07-11 07:48 | PC.NURSE ---
Addendum entered by Ebenezer Vidal RN 07/11/22 10:36: placed ring into his pocket to take home. Original Note: Ring Patient request her ring on left 2nd finger to be removed due to swelling. Ring removed and placed with patient belongings.
[2022-07-11 08:51] LABS: Absolute Segmented Neutrophil 3.1 10/cmm (1.6-7.1); Band Neutrophils Absolute 0.1 10^3/cmm (0.0-1.2); Eosinophils 0 %; Lymphocytes 29 %; Lymphocytes Absolute 1.4 10^3/cmm (1.2-3.4); Monocytes Absolute 0.1 10^3/cmm (0.1-0.6); Segmented Neutrophils 64 %; Total Cells Counted 100 (0-100)
[2022-07-11 08:52] LABS: Absolute Neutrophil 3.2 10^3/cmm (1.4-6.5); Anisocytosis 1+; Giant Platelets Trace; Macrocytosis Trace; Platelet Estimate Decreased (Normal); Poikilocytosis 1+; Smudge Cells 1+
--- NOTE | 2022-07-11 09:09 | P.PN_ITS ---
Subjective Subjective: on CRRT Medications: Reviewed: Yes Vitals/I&O/Wt Last Vital Signs Temp 98.8 F 07/11/22 05:00 Pulse 80 07/11/22 05:51 Resp 19 H 07/11/22 05:00 BP 95/60 07/11/22 05:00 Pulse Ox 99 07/11/22 05:00 O2 Del Method Nasal Cannula 07/09/22 20:00 O2 Flow Rate 3 07/09/22 20:00 FiO2 30 07/11/22 00:00 07/10/22 07/11/22 07/11/22 22:59 06:59 14:59 Intake Total 2043.308 / 2249.162 407.62 / 2656.782 Output Total 40 / 40 Balance 2043.308 / 2249.162 367.62 / 2616.782 Weight last 48 hrs Weight 95.396 kg Weight 96.162 kg Physical Exam Narrative: pt awake , alert HEENT PEERLA S1 S2 RRR Lungs clearbil per report + LE edema Urinary Catheter Management: Weber: Cath Placed During This Visit: yes Reason for Continuing Indwelling Catheter: Accurate Measurement of Urinary Output in Critically Ill Patients Urinary Catheter Date of Insertion: 07/07/22 Urinary Catheter Time of Insertion: 20:33 Data 07/11/22 04:17 07/11/22 04:17 Micro: Microbiology 07/08/22 01:11 Urine Culture - Final Urine Catheterized A&P Assessment and plan (1) Acute kidney injury: 1. Acute on CKD 3 : Cr baseline mid 1 range. Now presents with ANI with Cr 3.1 associated with Hyperkalemia and volume overload. ANI likely - oLiguric ,pt DNR/I , but agrees for temporary HD if needed --ON CRRT , tolerated well , Hold CRRT for next 24 hours and monitor renal fxn - continue to monitor renal function closely , Avoid Nephrotoxins and IV contrast studies 2. hyperkalemia : improved on CRRT 3. H/o CHF 4. Metabolic acidosis , mild , monitor Plan per medicine Attestations Medical Necessity Statement*: per medicine Coding Level of Care Code Acute Code for [facility] Diagnoses Acute kidney injury N17.9
[2022-07-11] MEDS: benzonatate 100 mg Capsule 200 MG PO (15:08)
--- NOTE | 2022-07-11 18:24 | PM.PN ---
Subjective Subjective: Patient is off CRRT this morning. Urine output remains poor. She is awake and alert. She reports she is feeling better. Reports her edema is better but she still endorses shortness of breath. Remains on Levophed. She denies abdominal pain, chest pain, fevers or chills. present later in the day and supportive. Medications: Reviewed: Yes Vitals/I&O/Wt Last Vital Signs Temp 98.2 F 07/11/22 17:30 Pulse 80 07/11/22 17:30 Resp 24 H 07/11/22 17:30 BP 103/60 07/11/22 17:30 Pulse Ox 97 07/11/22 17:30 O2 Del Method Nasal Cannula 07/11/22 17:30 O2 Flow Rate 4 07/11/22 17:30 FiO2 30 07/11/22 00:00 07/11/22 07/11/22 07/11/22 06:59 14:59 22:59 Intake Total 407.62 / 2656.782 548.072 / 548.072 50 / 598.072 Output Total 40 / 40 Balance 367.62 / 2616.782 548.072 / 548.072 50 / 598.072 Weight last 48 hrs Weight 95.396 kg Weight 96.162 kg Physical Exam Narrative: General: Patient is awake. Frail appearing. Very pleasant. Head: Normocephalic. Atraumatic. EOM intact. Neck: No JVD. Cardiovascular: No gallops. No murmurs. Lower extremity edema, slightly improved from yesterdays exam. Lungs: Breath sounds are diminish in bilateral bases, no use of accessory muscles, no crackles or wheezes. Skin: No jaundice. No rashes. Abdomen: Normal bowel sounds, abdomen soft and nontender. Genito Urinary: Genital exam not performed since complaints not related. Rectal: Rectal exam not performed since no symptoms indicated blood loss. Extremities: No cyanosis or clubbing. Musculoskeletal: No erythematous joints. Neurological: Moves all 4 extremities. No myoclonus. Urinary Catheter Management: Weber: Cath Placed During This Visit: yes Reason for Continuing Indwelling Catheter: Accurate Measurement of Urinary Output in Critically Ill Patients Urinary Catheter Date of Insertion: 07/07/22 Urinary Catheter Time of Insertion: 20:33 Data 07/11/22 04:17 07/11/22 04:17 A&P Assessment and plan (1) Septic shock: Continue Levophed support, wean as tolerated Catheter for strict I's and O's Continue Zosyn Discontinue vancomycin (2) Acute kidney injury: Remains in renal failure and on vasopressors Strict I's and O's Daily weights Nephro following, managing CRRT (3) COPD (chronic obstructive pulmonary disease): Breathing treatments as needed (4) LRTI (lower respiratory tract infection): Broad-spectrum antibiotics as above (5) Heart failure: Limited echo w/ EF 61%, no RWMA Volume control via dialysis (6) Hyperkalemia: Resolved w/ dialysis Nephro following, appreciate recommendations (7) Bicytopenia: HGB and PLT downtrending Heparin discontinued Serotonin release assay pending Trend CBC Consider heme consult if trend continues Plan DVT prophylaxis: SCD CODE STATUS: Allow natural Attestations Medical Necessity Statement*: Pt requires ongoing hospitalization as she remains in septic shock requiring IV vasopressor support, renal failure on CRRT and supportive care. Critical Care Time: The high probability of a clinically significant, sudden or life threatening deterioration of the patient's renal, cardiovascular, vascular system(s) required my full and direct attention, intervention and personal management. The critical care time is as shown. This time is in addition to time spent performing any reported procedures but includes the following: [x] Data and vital sign review and interpretation [x] Patient assessment, examination and intervention [x] Documentation [x] Medication orders and management Critical Care Time (min): 33 Coding Level of Care Code Acute Code for [facility] Diagnoses Septic shock A41.9; R65.21 Acute kidney injury N17.9 COPD (chronic obstructive pulmonary disease) J44.9 LRTI (lower respiratory tract infection) J22 Heart failure I50.9 Hyperkalemia E87.5 Bicytopenia D75.89
[2022-07-12] VITALS (45 sets, daily range): BP systolic 72–120; BP diastolic 26–79; PULSE 80–82; RESP 8–26; TEMP 36.1–36.7; O2SAT 94–100
[2022-07-12] MEDS: piperacillin-tazobactam 3.375 GM in sodium chloride 0.9% (plus) 50 ML IV ×2 (01:46→14:29)
[2022-07-12] MEDS: benzonatate 100 mg Capsule 200 MG PO ×2 (03:33→20:23)
[2022-07-12 04:37] LABS: Basophils # 0.1 10^3/uL (0.0-0.1); Basophils % 1.3 %; Eosinophils # 0.2 10^3/uL (0.0-0.8); Eosinophils % 2.8 %; Hematocrit 25.7 % (37.0-47.0); Hemoglobin 7.5 g/dL (11.5-15.3); Lymphocytes # 1.8 10^3/uL (0.8-4.8); Mean Corpuscular HGB Conc 29.2 g/dL (30.0-36.0); Mean Corpuscular Hemoglobin 27.7 pg (28.0-34.0); Mean Corpuscular Volume 94.8 fl (81-99); Monocytes # 0.6 10^3/uL (0.2-0.9); Monocytes % 10.2 %; Neutrophils # 3.47 10^3/uL (1.8-7.7); Neutrophils % 56.1 %; Nucleated Red Blood Cells # 0.1 /100WBC; Nucleated Red Blood Cells % 1.8 %; Platelet Count 50 10^3/cmm (130-400); Red Blood Count 2.71 10^6/uL (4.1-5.3); Red Cell Distribution Width 18.7 % (12.1-15.1); White Blood Count 6.2 10^3/uL (4.0-10.0)
[2022-07-12 04:54] LABS: Albumin Level 3.6 g/dL (3.5-5.2); Anion Gap 15.8 (5-19); Blood Urea Nitrogen 22 mg/dL (8-23); Calcium 8.3 mg/dL (8.5-10.5); Carbon Dioxide 22 mmol/L (22-29); Chloride 103 mmol/L (98-107); Glucose 94 mg/dL (65-115); Magnesium 2.2 mg/dL (1.7-2.3); Phosphorus 3.1 mg/dL (2.5-4.5); Potassium 4.8 mmol/L (3.5-5.1); Sodium 136 mmol/L (136-145)
--- NOTE | 2022-07-12 05:40 | P.PN_ITS ---
Subjective Subjective: No acute events overnight Medications: Reviewed: Yes Vitals/I&O/Wt Last Vital Signs Temp 98.1 F 07/12/22 01:30 Pulse 80 07/12/22 05:00 Resp 16 07/12/22 05:00 BP 108/66 07/12/22 05:00 Pulse Ox 96 07/12/22 05:00 O2 Del Method Nasal Cannula 07/11/22 17:30 O2 Flow Rate 4 07/11/22 17:30 FiO2 30 07/12/22 03:07 07/11/22 07/11/22 07/12/22 14:59 22:59 06:59 Intake Total 548.072 / 548.072 290 / 838.072 147.638 / 985.710 Output Total 60 / 60 90 / 150 Balance 548.072 / 548.072 230 / 778.072 57.638 / 835.710 Weight last 48 hrs Weight 95.396 kg Weight 96.162 kg Physical Exam Narrative: pt awake , alert HEENT PEERLA S1 S2 RRR Lungs clearbil per report + LE edema Urinary Catheter Management: Weber: Cath Placed During This Visit: yes Reason for Continuing Indwelling Catheter: Accurate Measurement of Urinary Output in Critically Ill Patients Urinary Catheter Date of Insertion: 07/07/22 Urinary Catheter Time of Insertion: 20:33 Data 07/12/22 03:33 07/12/22 03:33 A&P Assessment and plan (1) Acute kidney injury: 1. Acute on CKD 3 : Cr baseline mid 1 range. Now presents with ANI with Cr 3.1 associated with Hyperkalemia and volume overload. ANI likely - oLiguric ,pt DNR/I , but agrees for temporary HD if needed --S/P CRRT , tolerated well , Holding CRRT currently and monitor renal fxn -Avoid Nephrotoxins and IV contrast studies 2. hyperkalemia : improved on CRRT 3. H/o CHF 4. Metabolic acidosis , mild , monitor 5. Anemia : will give a dose of Epogen Attestations Medical Necessity Statement*: per medicine Coding Level of Care Code Acute Code for [facility] Diagnoses Acute kidney injury N17.9
--- NOTE | 2022-07-12 10:55 | PM.PN ---
Subjective Subjective: Patient is awake. Endorses shortness of breath. Denies fevers, chills, abdominal pain, or chest pains. Urine output remains poor with ~90 mL over night. She is on miminal Levophed. Reports edema is better. She is excited she was able to remove her ring which she was able to give to her for safe keeping. Medications: Reviewed: Yes Vitals/I&O/Wt Last Vital Signs Temp 97.9 F 07/12/22 08:30 Pulse 80 07/12/22 08:30 Resp 21 H 07/12/22 08:30 BP 102/60 07/12/22 08:30 Pulse Ox 99 07/12/22 08:30 O2 Del Method High Flow Nasal Cannula 07/12/22 08:30 O2 Flow Rate 3 07/12/22 08:30 FiO2 30 07/12/22 03:07 07/11/22 07/12/22 07/12/22 22:59 06:59 14:59 Intake Total 290 / 838.072 208.052 / 1046.124 Output Total 60 / 60 90 / 150 50 / 50 Balance 230 / 778.072 118.052 / 896.124 -50 / -50 Weight last 48 hrs Weight 94.801 kg Weight 95.396 kg Physical Exam Narrative: General: Patient is awake. Frail appearing. Very pleasant. Head: Normocephalic. Atraumatic. EOM intact. Neck: No JVD. HD line. Cardiovascular: No gallops. Systolic murmur. No rub. Non pitting lower extremity edema. Lungs: Breath sounds are diminish in bilateral bases, no use of accessory muscles, no crackles or wheezes. Skin: No jaundice. No rashes. Abdomen: Normal bowel sounds, abdomen soft and nontender. Genito Urinary: Genital exam not performed since complaints not related. Rectal: Rectal exam not performed since no symptoms indicated blood loss. Extremities: No cyanosis or clubbing. Musculoskeletal: No erythematous joints. Neurological: Moves all 4 extremities. No myoclonus. Urinary Catheter Management: Weber: Cath Placed During This Visit: yes Reason for Continuing Indwelling Catheter: Accurate Measurement of Urinary Output in Critically Ill Patients Urinary Catheter Date of Insertion: 07/07/22 Urinary Catheter Time of Insertion: 20:33 Data 07/12/22 03:33 07/12/22 03:33 A&P Assessment and plan (1) Septic shock: Continue Levophed support, wean off Cultures remain negative Catheter for strict I's and O's Continue Zosyn (2) Acute kidney injury: Remains in renal failure Strict I's and O's Daily weights Nephro following, probably will need additional dialysis (3) COPD (chronic obstructive pulmonary disease): Breathing treatments as needed (4) LRTI (lower respiratory tract infection): Continue Zosyn as above (5) Heart failure: Limited echo w/ EF 61%, no RWMA Volume control via dialysis (6) Hyperkalemia: Resolved w/ dialysis Nephro following, appreciate recommendations (7) Bicytopenia: HGB and PLT low Heparin discontinued Serotonin release assay pending Trend CBC Consider heme consult if trend continues Plan DVT prophylaxis: SCD CODE STATUS: Allow natural Attestations Medical Necessity Statement*: Patient requires ongoing hospitalization for IV vasopressor support, renal support, electrolyte monitoring, IV abx, and supportive care. Critical Care Time: The high probability of a clinically significant, sudden or life threatening deterioration of the patient's vascular, cardiovascular, renal system(s) required my full and direct attention, intervention and personal management. The critical care time is as shown. This time is in addition to time spent performing any reported procedures but includes the following: [x] Data and vital sign review and interpretation [x] Patient assessment, examination and intervention [x] Documentation [x] Medication orders and management Critical Care Time (min): 41 Coding Level of Care Code Acute Code for [facility] Diagnoses Septic shock A41.9; R65.21 Acute kidney injury N17.9 COPD (chronic obstructive pulmonary disease) J44.9 LRTI (lower respiratory tract infection) J22 Heart failure I50.9 Hyperkalemia E87.5 Bicytopenia D75.89
--- NOTE | 2022-07-12 13:57 | PC.SOCIAL ---
IMM Update pg 2 of IMM updated and reviewed w/ patient. Copy provided and copy dated, initialed and placed in chart.
[2022-07-13] VITALS (40 sets, daily range): BP systolic 83–121; BP diastolic 46–73; PULSE 80–83; RESP 14–32; TEMP 35.8–36.6; O2SAT 92–100
[2022-07-13] MEDS: piperacillin-tazobactam 3.375 GM in sodium chloride 0.9% (plus) 50 ML IV ×2 (01:12→13:30)
[2022-07-13 04:51] LABS: Basophils # 0.1 10^3/uL (0.0-0.1); Eosinophils # 0.1 10^3/uL (0.0-0.8); Eosinophils % 2.1 %; Hematocrit 24.2 % (37.0-47.0); Hemoglobin 7.1 g/dL (11.5-15.3); Lymphocytes # 1.3 10^3/uL (0.8-4.8); Lymphocytes % 24.1 %; Mean Corpuscular HGB Conc 29.3 g/dL (30.0-36.0); Mean Corpuscular Hemoglobin 27.8 pg (28.0-34.0); Mean Corpuscular Volume 94.9 fl (81-99); Monocytes # 0.4 10^3/uL (0.2-0.9); Monocytes % 7.7 %; Neutrophils # 3.36 10^3/uL (1.8-7.7); Neutrophils % 64.9 %; Nucleated Red Blood Cells % 0.8 %; Platelet Count 30 10^3/cmm (130-400); Red Blood Count 2.55 10^6/uL (4.1-5.3); Red Cell Distribution Width 18.6 % (12.1-15.1); White Blood Count 5.2 10^3/uL (4.0-10.0)
[2022-07-13] MEDS: benzonatate 100 mg Capsule 200 MG PO ×2 (04:55→19:09)
[2022-07-13 05:08] LABS: Albumin Level 3.4 g/dL (3.5-5.2); Anion Gap 13.9 (5-19); Blood Urea Nitrogen 24 mg/dL (8-23); Calcium 8.9 mg/dL (8.5-10.5); Carbon Dioxide 24 mmol/L (22-29); Chloride 104 mmol/L (98-107); Glucose 94 mg/dL (65-115); Magnesium 2.2 mg/dL (1.7-2.3); Phosphorus 3.5 mg/dL (2.5-4.5); Potassium 4.9 mmol/L (3.5-5.1); Sodium 137 mmol/L (136-145)
--- NOTE | 2022-07-13 05:34 | PC.NURSE ---
Patient rested comfortably through this nurse's shift. Bipap was utilized from [id number]. Patient maintained BP without Levophed since 1200 of prior shift. Patient has asked questions regarding dialysis and film spooler dialysis access.
--- NOTE | 2022-07-13 11:57 | PM.PN ---
Subjective Subjective: Off Levophed Medications: Reviewed: Yes Vitals/I&O/Wt Last Vital Signs Temp 97.9 F 07/13/22 08:00 Pulse 80 07/13/22 09:24 Resp 22 H 07/13/22 08:00 BP 98/70 07/13/22 08:00 Pulse Ox 97 07/13/22 09:24 O2 Del Method Nasal Cannula 07/13/22 09:24 O2 Flow Rate 2 07/13/22 09:24 FiO2 30 07/13/22 03:19 07/12/22 07/13/22 07/13/22 22:59 06:59 14:59 Intake Total 50 / 70.257 50 / 120.257 480 / 480 Output Total 110 / 160 92 / 252 Balance -60 / -89.743 -42 / -131.743 480 / 480 Weight last 48 hrs Weight 96.162 kg Weight 94.801 kg Physical Exam Narrative: pt awake , alert HEENT PEERLA S1 S2 RRR Lungs clearbil per report + LE edema Urinary Catheter Management: Weber: Cath Placed During This Visit: yes Reason for Continuing Indwelling Catheter: Accurate Measurement of Urinary Output in Critically Ill Patients Urinary Catheter Date of Insertion: 07/07/22 Urinary Catheter Time of Insertion: 20:33 Data 07/13/22 04:19 07/13/22 04:19 Micro: Microbiology 07/08/22 01:17 Blood Culture - Final Blood NO GROWTH AFTER 5 DAYS 07/08/22 01:14 Blood Culture - Final Blood NO GROWTH AFTER 5 DAYS A&P Assessment and plan (1) Acute kidney injury: 1. Acute on CKD 3 : Cr baseline mid 1 range. Now presents with ANI with Cr 3.1 associated with Hyperkalemia and volume overload. ANI likely - oLiguric ,pt DNR/I , but agrees for temporary HD if needed --S/P CRRT , tolerated well , Holding CRRT currently and monitor renal fxn -Renal function stable but patient is volume overloaded but blood pressures borderline low -We will give IV albumin and IV Lasix today and assess if patient have adequate diuresis, if not we will restart CRRT -Avoid Nephrotoxins and IV contrast studies 2. hyperkalemia : improved on CRRT 3. H/o CHF 4. Metabolic acidosis , mild , monitor 5. Anemia : will give a dose of Epogen Attestations Medical Necessity Statement*: Per medicine Coding Level of Care Code Acute Code for [facility] Diagnoses Acute kidney injury N17.9
[2022-07-13] MEDS: FUROsemide 10 mg/mL SDV 4mL 40 MG IVP ×2 (12:40→23:37)
[2022-07-13] MEDS: albumin 25 G/100 ML BAG 60 G IV ×2 (12:40→19:10)
--- NOTE | 2022-07-13 14:29 | CT_ITS ---
WS: [id number] CT CHEST, ABDOMEN AND PELVIS NONCONTRAST. HISTORY: ANI,worsening creat,evalute for obstruction,PLEURAL EFFUSION TECHNIQUE: Contiguous 5 mm axial imaging performed through the chest, abdomen and pelvis without IV c ontrast, oral contrast has not been provided. Coronal and sagittal reformats chest. Coronal and sagit levon reformats through the abdomen and pelvis. All CT scans at [facility] use at least one of these dose optimization techniques: automated exposure control; mA and/or kV adjustment per patient s ize (includes targeted exams where dose is matched to clinical indication); or iterative reconstructi on. CONTRAST: None DLP: 1065.58 mGy.cm COMPARISON: 06/22/2022 and 10/01/[address]: Significantly decreased pulmonary volumes due to poor inspiration and effusions with atelec tasis. Small bilateral pleural effusions, slightly greater on the RIGHT. Significant atelectasis and volume loss RIGHT lower and RIGHT middle lobes. No pneumothorax. Markedly enlarged heart. LEFT subcla vian pacer. Atherosclerosis aorta. Normal size pulmonary artery. No adenopathy identified. Abdomen CT: Normal size liver and spleen. Well-distended gallbladder with stones. Fluid surrounding t he gallbladder is probably related to ascites. No bile duct dilatation. Diffuse pancreatic atrophy. N ormal spleen. No adrenal mass. Small kidneys with perinephric stranding. Complex cyst upper pole RIGH T kidney measures 2.6 cm. No renal obstruction. Moderate atherosclerosis aorta with no aneurysm. Diffuse mesenteric and soft tissue anasarca. Normally distended stomach and small bowel. No colon obs truction or wall thickening. Small amount of ascites. Pelvic CT: Continued anasarca extending into the pelvis. Free fluid in the pelvis. Weber catheter in the urinary bladder. Possible prior hysterectomy. Uterus is not identified. Moderate increase in thoracic kyphosis. Mild anterior wedging of T3. CT/[place] [id number] IMPRESSION: 1. Small bilateral pleural effusions with compressive atelectasis. 2. Lung volumes are decreased predominantly due to compressive atelectasis. 3. Small amount of ascites. 4. Extensive soft tissue anasarca. 5. Cholelithiasis. Fluid surrounding the gallbladder is probably related to th e ascites. No hepatic duct dilatation. 6. No GI tract obstruction. 7. Weber catheter.
--- NOTE | 2022-07-13 16:09 | PM.PN ---
Subjective Subjective: Hospital course reviewed. Pulmonary notes reveiwed from previosu admission Cr trending up to 2.4. Levophed has been weaned off Medications: Reviewed: Yes Vitals/I&O/Wt Last Vital Signs Temp 97.9 F 07/13/22 08:00 Pulse 80 07/13/22 14:00 Resp 18 07/13/22 13:00 BP 103/58 07/13/22 13:00 Pulse Ox 97 07/13/22 13:00 O2 Del Method Nasal Cannula 07/13/22 13:00 O2 Flow Rate 2 07/13/22 13:00 FiO2 30 07/13/22 03:19 07/13/22 07/13/22 07/13/22 06:59 14:59 22:59 Intake Total 50 / 120.257 820 / 820 Output Total 92 / 252 Balance -42 / -131.743 820 / 820 Weight last 48 hrs Weight 96.162 kg Weight 94.801 kg Physical Exam Narrative: General: No acute distress, chronically ill appearing frail lady, oriented x3 HEENT: PERRLA, pupils bilaterally equal and reactive, pallors not present Chest: Normal vesicular breath sounds, no added sounds, equal good air entry bilaterally CVS: S1-S2 regular, no murmurs, no tachycardia, no gallops, no rubs Abdomen: Soft, nontender, no organomegaly, bowel sounds present Neuro: No focal deficits, no facial deformity, AO x3, power 5/5 in all limbs Urinary Catheter Management: Weber: Cath Placed During This Visit: yes Reason for Continuing Indwelling Catheter: Accurate Measurement of Urinary Output in Critically Ill Patients Urinary Catheter Date of Insertion: 07/07/22 Urinary Catheter Time of Insertion: 20:33 Data 07/13/22 04:19 07/13/22 04:19 Micro: Microbiology 07/08/22 01:17 Blood Culture - Final Blood NO GROWTH AFTER 5 DAYS 07/08/22 01:14 Blood Culture - Final Blood NO GROWTH AFTER 5 DAYS A&P Assessment and plan (1) Septic shock: Weaned off levophed Catheter for strict I's and O's Follow-up cultures, thus far blood and urine cx negative 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 She has the appearance of an effusion however multiple past thoracentesis have not shown any significant fluid pockets. Likely that radiological appearance is related to hemidiaphragm elevation Will check CT chest for interval development of pneumonia check CT abdomen/pelvis - renal US unable to visualize kidneys or urinary system - evaluate for any obstrcutive process. Patient underwent bronchsocopy on last admission which showed edematous bronchial wall however respiratory cx remained negative. Continue Zosyn for now pending imaging, no infectious source grossly evident at this time (2) Acute kidney injury: ~75 mL urine overnight Strict I's and O's Daily weights Nephro following, anticipate CRRT (3) COPD (chronic obstructive pulmonary disease): Breathing treatments as needed (4) LRTI (lower respiratory tract infection): Broad-spectrum antibiotics as above (5) Heart failure: Urgent limited echo is pending (6) Hyperkalemia: Trend labs Nephro following (7) Bicytopenia: Worsening pancytopenia unclear etiology may be related to sepsis however no untreated source appears to be evident at this time HIT panel pending elevated T bili, anemia, [place] cells on differenetial, will check haptoglobin and LDH to evalaute for hemolysis Check retic index with AM labs Plan CODE STATUS: Allow natural Attestations Medical Necessity Statement*: ANI, oliguric, needs continued assessments for HD, resp status Coding Level of Care Code Acute Code for g Fwd Diagnoses Septic shock A41.9; R65.21 Acute kidney injury N17.9 COPD (chronic obstructive pulmonary disease) J44.9 LRTI (lower respiratory tract infection) J22 Heart failure I50.9 Hyperkalemia E87.5 Bicytopenia D75.89
[2022-07-14] VITALS (48 sets, daily range): BP systolic 80–124; BP diastolic 45–85; PULSE 80–91; RESP 14–35; TEMP 36.1–36.6; O2SAT 89–100
[2022-07-14] MEDS: piperacillin-tazobactam 3.375 GM in sodium chloride 0.9% (plus) 50 ML IV (00:54)
[2022-07-14] MEDS: albumin 25 G/100 ML BAG 60 G IV ×3 (03:35→20:44)
[2022-07-14 04:09] LABS: Basophils % 0.9 %; Eosinophils # 0.1 10^3/uL (0.0-0.8); Hematocrit 23.3 % (37.0-47.0); Hemoglobin 6.9 g/dL (11.5-15.3); Lymphocytes % 21.5 %; Mean Corpuscular HGB Conc 29.6 g/dL (30.0-36.0); Mean Corpuscular Volume 97.9 fl (81-99); Monocytes # 0.4 10^3/uL (0.2-0.9); Monocytes % 8.9 %; Neutrophils # 3.01 10^3/uL (1.8-7.7); Neutrophils % 65.5 %; Nucleated Red Blood Cells % 0.9 %; Platelet Count 33 10^3/cmm (130-400); Red Blood Count 2.38 10^6/uL (4.1-5.3); Red Cell Distribution Width 19.6 % (12.1-15.1); White Blood Count 4.6 10^3/uL (4.0-10.0)
[2022-07-14 04:11] LABS: Hematocrit 23.3 % (37.0-47.0); Retic Production Index 1.46; Reticulocyte % 2.5 % (0.5-2.0)
[2022-07-14 04:26] LABS: Alanine Aminotransferase 9 U/L (0-33); Albumin Level 4.1 g/dL (3.5-5.2); Alkaline Phosphatase 77 U/L (35-105); Anion Gap 11.8 (5-19); Aspartate Amino Transferase 19 U/L (0-32); Blood Urea Nitrogen 28 mg/dL (8-23); Calcium 9.2 mg/dL (8.5-10.5); Carbon Dioxide 27 mmol/L (22-29); Chloride 102 mmol/L (98-107); Globulin 2.4 g/dL (1.3-4.6); Glucose 74 mg/dL (65-115); Lactate Dehydrogenase 183 U/L (135-214); Osmolality Calculated 286 mOsm/kg (285-295); Potassium 4.8 mmol/L (3.5-5.1); Sodium 136 mmol/L (136-145); Total Bilirubin 1.2 mg/dL (0.15-1.2); Total Protein 6.5 g/dL (6.6-8.7)
[2022-07-14 05:21] LABS: Slide Review Slide Review Perform
[2022-07-14] MEDS: benzonatate 100 mg Capsule 200 MG PO (05:36)
[2022-07-14 06:38] LABS: LAB Peripheral Smear Sent for Review
[2022-07-14] MEDS: pantoprazole DR 40 mg Tablet PO (08:07)
[2022-07-14] MEDS: polyethylene glycol 3350 Pkt 17 gm PO (08:07)
[2022-07-14] MEDS: sennosides-docusate Tablet 1 TAB PO ×2 (08:07→18:37)
--- NOTE | 2022-07-14 08:52 | P.PN_ITS ---
Subjective Subjective: No acute events overnight Medications: Reviewed: Yes Vitals/I&O/Wt Last Vital Signs Temp 96.9 F L 07/14/22 08:00 Pulse 80 07/14/22 08:00 Resp 24 H 07/14/22 08:00 BP 106/60 07/14/22 08:00 Pulse Ox 93 07/14/22 08:00 O2 Del Method Room Air 07/14/22 08:00 O2 Flow Rate 2 07/13/22 15:30 FiO2 30 07/14/22 02:13 07/13/22 07/14/22 07/14/22 22:59 06:59 14:59 Intake Total 540 / 1360 0 / 1360 150 / 150 Output Total 145 / 145 140 / 285 Balance 395 / 1215 -140 / 1075 150 / 150 Weight last 48 hrs Weight 96.162 kg Physical Exam Narrative: pt awake , alert HEENT PEERLA S1 S2 RRR Lungs clearbil per report + LE edema Urinary Catheter Management: Weber: Cath Placed During This Visit: yes Reason for Continuing Indwelling Catheter: Accurate Measurement of Urinary Output in Critically Ill Patients Urinary Catheter Date of Insertion: 07/07/22 Urinary Catheter Time of Insertion: 20:33 Data 07/14/22 02:59 07/14/22 02:59 A&P Assessment and plan (1) Acute kidney injury: 1. Acute on CKD 3 : Cr baseline mid 1 range. Now presents with ANI with Cr 3.1 associated with Hyperkalemia and volume overload. ANI likely - oLiguric ,pt DNR/I , but agrees for temporary HD if needed --S/P CRRT , tolerated well , Holding CRRT currently and monitor renal fxn -Renal function stable but patient is volume overloaded but blood pressures borderline low -We continue IV albumin and IV Lasix for another day and assess if patient have adequate diuresis, if not we will attempt Ultrafiltration with HD in Am -Avoid Nephrotoxins and IV contrast studies 2. hyperkalemia : improved on CRRT 3. H/o CHF 4. Metabolic acidosis , mild , monitor 5. 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
[2022-07-14] MEDS: epoetin alfa 1000 Unit/0.05 mL (non-esrd) 20000 UNIT SUBCUT (11:00)
--- NOTE | 2022-07-14 11:45 | PC.SOCIAL ---
IMM update IMM updated with patient. Copy PG 2 provided. Verbalized an understanding. Initialled, dated, timed, and placed in chart.
[2022-07-14] MEDS: FUROsemide 10 mg/mL SDV 4mL 40 MG IVP (12:33)
--- NOTE | 2022-07-14 14:34 | FL_ITS ---
WS: [id number] FL barium swallow modifd [id number] REASON FOR EXAM: Oropharyngeal dysphagia FLUOROSCOPY TIME: 1min [id number] # OF SPOT FILMS: None FINDINGS: Patient was evaluated in the sitting upright position, lateral projection. The swallowing of multiple consistencies of barium was monitored fluoroscopically with video recordin g. No aspiration was identified during the examination. Detailed analysis and report will be rendered by the speech therapy department. FL/FL barium swallow modifd [id number] IMPRESSION: Modified barium swallow as above.
--- NOTE | 2022-07-14 15:41 | PC.NURSE ---
Transfer Dr. 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 Patient and agreeing to transfer for this. [facility] request transfer 07/15/22.
[2022-07-14 19:35] LABS: INR 1.45 (0.8-1.2)
[2022-07-14 19:36] LABS: Partial Thromboplastin Time 39.8 SECONDS (23.9-36.7)
[2022-07-14 19:37] LABS: Fibrinogen 149 mg/dL (174-498)
[2022-07-14 19:39] LABS: D Dimer 2.35 ug/mIFEU (0-0.59)
--- NOTE | 2022-07-14 22:35 | PM.TDS ---
Transfer Summary Providers Date of Admission: 07/07/22 22:16 Date of Discharge/Transfer: 07/14/22 Attending Provider at Admission: Armida Antonio MD Attending Provider at Transfer: Shelly Turner MD Primary Care Provider: Neeraj Cardoza MD Transfer Plans: Anticipated date of transfer: 07/14/22. Diagnoses at Discharge Discharge Diagnosis (1) Acute kidney injury: Status: Acute Reason for Visit Reason for Visit Low Blood pressure Hospital Course Hospital Course Megan Das is 82 year old lady with past medical history of CHF, chronic kidney disease baseline cr ~1.3, hypertension, A-fib with PPM, asthma presented to the hospital on 07/07 for generalized weakness, shortness of breath. She feelt that she has gained weight and she feels very edematous.? On arrival, she was hypothermic, hyperkalemic, had an elevated lacatate and cr of 3.1. Initial concern on presentation was that for sepsis and ANI on CKD, she underwent CRRT on 07/09 for 48 hrs and then this has been on hold. She is on watchful waiting per renal. Source evaluation of sepsis has thus far not yielded any obvious source. CT CAP shows B/L atelcatasis and small effusions, urine and blood cx are negative. She is off levopehed now. Course of admission has been notable for development of thrombocytopenia and anemia. Hb today at 6.9 for which she received blood transfuion. No bleeding source identified except for multiple skin hematomas. NO abdominal bleeding. hemoccult negative at bedside. Platelets down to 33 during this admission (baseline 130-150). Labs checked for hemolysis due to concern for TTP vs MAHA, showed low haptoglobin. normal LDH, T bili 1.3, normal LFT. Peripheral smear discussed with Dr. Gross, shows schistocytes and Glencross cells , giant platelets, which are concerning for MAHA. ADAMTS 13 testing sent today,pending, results expceted in 5-7 days. Unlikely HIT as thrombocytopenia has been present since admission. A GIANNI panel remains pending currently. Given these findings discussed with patient the need to be followed by inpatient hematology, possible considerations for Rituxan therapy &/or plasmapharesis, patient will be best suited by transfer to a higher center where these therapies are available. Physical Exam Narrative: General:elderly frail lady with multiple hematomas HEENT: PERRLA, pupils bilaterally equal and reactive, pallors not present Chest: Normal vesicular breath sounds, no added sounds, equal good air entry bilaterally CVS: S1-S2 regular, no murmurs, no tachycardia, no gallops, no rubs Abdomen: Soft, nontender, no organomegaly, bowel sounds present Neuro: No focal deficits, no facial deformity, AO x3, power 5/5 in all limbs EXT: anasarca+, multiple hematomas over chest, B/L arms likely from site of Iv lines Urinary Catheter Management: Weber: Cath Placed During This Visit: yes Reason for Continuing Indwelling Catheter: Accurate Measurement of Urinary Output in Critically Ill Patients Urinary Catheter Date of Insertion: 07/07/22 Urinary Catheter Time of Insertion: 20:33 TS Data Studies Completed and Pending Pending at discharge Category Date Time Status ADAMTS 13 Activity With Reflex Routine Lab 07/14/22 18:13 Received Respiratory Panel 2 Routine Lab 07/14/22 06:51 Ordered Serotonin Release Assay Unfrac Routine Lab 07/10/22 02:43 Received Sputum Culture and Gram Stain Stat Lab 07/08/22 00:59 Uncollected Labs from last 24 hours 07/14/22 07/14/22 07/14/22 18:13 18:13 02:59 WBC RBC Hgb Hct 23.3 L MCV MCH MCHC RDW Plt Count MPV Neut % (Auto) Lymph % (Auto) Sully % (Auto) Eos % (Auto) Baso % (Auto) Reticulocyte % (Auto) 2.5 H Neut # (Auto) Lymph # (Auto) Sully # (Auto) Eos # (Auto) Baso # (Auto) Nucleated RBC % (auto) Nucleated RBCs # Retic Production Index 1.46 Haptoglobin PT 18.10 H INR 1.45 H APTT 39.8 H Fibrinogen 149 L Fibrin Degrad Products Pos, 10-40 H D-Dimer 2.35 H [id number] Activity Pending Sodium Potassium Chloride Carbon Dioxide Anion Gap BUN Creatinine GFR Calculation Glucose Calculated Osmolality Calcium Total Bilirubin Direct Bilirubin Indirect Bilirubin AST ALT Alkaline Phosphatase Lactate Dehydrogenase Total Protein Albumin Globulin Nasal Influ A H1 2009 PCR Adenovirus (PCR) C. pneumoniae DNA (PCR) Coronavirus 229E (PCR) Human Metapneumovir PCR Influenza A (H1) PCR Influenza A (H3) PCR Influenza Type A (PCR) Influenza Type B (PCR) M. pneumoniae (PCR) Parainfluenza 1 (PCR) Parainfluenza 2 (PCR) Parainfluenza 3 (PCR) Parainfluenza 4 (PCR) RSV Type A (PCR) RSV Type B (PCR) Entero/Rhino (PCR) SARS-CoV-2 (PCR) Blood Type Rho(D) Type Antibody Screen Crossmatch 07/14/22 07/14/22 07/14/22 02:59 02:59 02:59 WBC 4.6 RBC 2.38 L Hgb 6.9 L Hct 23.3 L MCV 97.9 MCH 29.0 MCHC 29.6 L RDW 19.6 H Plt Count 33 L MPV Not Reportable Neut % (Auto) 65.5 Lymph % (Auto) 21.5 Sully % (Auto) 8.9 Eos % (Auto) 3.0 Baso % (Auto) 0.9 Reticulocyte % (Auto) Cancelled Neut # (Auto) 3.01 Lymph # (Auto) 1.0 Sully # (Auto) 0.4 Eos # (Auto) 0.1 Baso # (Auto) 0.0 Nucleated RBC % (auto) 0.9 Nucleated RBCs # 0.0 Retic Production Index Haptoglobin 10.0 L PT INR APTT Fibrinogen Fibrin Degrad Products D-Dimer [id number] Activity Sodium 136 Potassium 4.8 Chloride 102 Carbon Dioxide 27 Anion Gap 11.8 BUN 28 H Creatinine 2.5 H GFR Calculation Not Reportable Glucose 74 Calculated Osmolality 286 Calcium 9.2 Total Bilirubin 1.2 Direct Bilirubin 0.70 H Indirect Bilirubin 0.50 AST 19 ALT 9 Alkaline Phosphatase 77 Lactate Dehydrogenase 183 Total Protein 6.5 L Albumin 4.1 Globulin 2.4 Nasal Influ A H1 2008 PCR Adenovirus (PCR) C. pneumoniae DNA (PCR) Coronavirus 229E (PCR) Human Metapneumovir PCR Influenza A (H1) PCR Influenza A (H3) PCR Influenza Type A (PCR) Influenza Type B (PCR) M. pneumoniae (PCR) Parainfluenza 1 (PCR) Parainfluenza 2 (PCR) Parainfluenza 3 (PCR) Parainfluenza 4 (PCR) RSV Type A (PCR) RSV Type B (PCR) Entero/Rhino (PCR) SARS-CoV-2 (PCR) Blood Type Rho(D) Type Antibody Screen Crossmatch 07/13/22 07/12/22 20:30 04:05 WBC RBC Hgb Hct MCV MCH MCHC RDW Plt Count MPV Neut % (Auto) Lymph % (Auto) Sully % (Auto) Eos % (Auto) Baso % (Auto) Reticulocyte % (Auto) Neut # (Auto) Lymph # (Auto) Sully # (Auto) Eos # (Auto) Baso # (Auto) Nucleated RBC % (auto) Nucleated RBCs # Retic Production Index Haptoglobin PT INR APTT Fibrinogen Fibrin Degrad Products D-Dimer [id number] Activity Sodium Potassium Chloride Carbon Dioxide Anion Gap BUN Creatinine GFR Calculation Glucose Calculated Osmolality Calcium Total Bilirubin Direct Bilirubin Indirect Bilirubin AST ALT Alkaline Phosphatase Lactate Dehydrogenase Total Protein Albumin Globulin Nasal Influ A H1 2008 PCR Cancelled Adenovirus (PCR) Cancelled C. pneumoniae DNA (PCR) Cancelled Coronavirus 229E (PCR) Cancelled Human Metapneumovir PCR Cancelled Influenza A (H1) PCR Cancelled Influenza A (H3) PCR Cancelled Influenza Type A (PCR) Cancelled Influenza Type B (PCR) Cancelled M. pneumoniae (PCR) Cancelled Parainfluenza 1 (PCR) Cancelled Parainfluenza 2 (PCR) Cancelled Parainfluenza 3 (PCR) Cancelled Parainfluenza 4 (PCR) Cancelled RSV Type A (PCR) Cancelled RSV Type B (PCR) Cancelled Entero/Rhino (PCR) Cancelled SARS-CoV-2 (PCR) Cancelled Blood Type B Positive Rho(D) Type Positive Antibody Screen Negative Crossmatch See Detail Completed Studies During Hospitalization Category [place] [id number] Routine Cat Scan 07/13/22 14:29 Completed CXRP [XR chest 1V portable [id number]] NOW Exams 07/09/22 11:29 Completed FL barium swallow modifd [id number] Routine Exams 07/14/22 14:34 Completed XR chest 1V portable [id number] Stat Exams 07/07/22 18:08 Completed CV. echo limited [id number] Urgent Ultrasound 07/09/22 03:22 Completed Laboratory Last Values WBC 4.6 10^3/uL (4.0-10.0) 07/14/22 02:59 Corrected WBC Cancelled 07/08/22 04:06 RBC 2.38 10^6/uL (4.1-5.3) L 07/14/22 02:59 Hgb 6.9 g/dL (11.5-15.3) L 07/14/22 02:59 Hct 23.3 % (37.0-47.0) L 07/14/22 02:59 Hct 23.3 % (37.0-47.0) L 07/14/22 02:59 MCV 97.9 fl (81-99) 07/14/22 02:59 MCH 29.0 pg (28.0-34.0) 07/14/22 02:59 MCHC 29.6 g/dL (30.0-36.0) L 07/14/22 02:59 RDW 19.6 % (12.1-15.1) H 07/14/22 02:59 Plt Count 33 10^3/cmm (130-400) L 07/14/22 02:59 MPV Not Reportable 07/14/22 02:59 Gran % Cancelled 07/08/22 04:06 Neut % (Auto) 65.5 % 07/14/22 02:59 Lymph % (Auto) 21.5 % 07/14/22 02:59 Sully % (Auto) 8.9 % 07/14/22 02:59 Eos % (Auto) 3.0 % 07/14/22 02:59 Baso % (Auto) 0.9 % 07/14/22 02:59 Reticulocyte % (Auto) 2.5 % (0.5-2.0) H 07/14/22 02:59 Reticulocyte % (Auto) Cancelled 07/14/22 02:59 Neut # (Auto) 3.01 10^3/uL (1.8-7.7) 07/14/22 02:59 Lymph # (Auto) 1.0 10^3/uL (0.8-4.8) 07/14/22 02:59 Sully # (Auto) 0.4 10^3/uL (0.2-0.9) 07/14/22 02:59 Eos # (Auto) 0.1 10^3/uL (0.0-0.8) 07/14/22 02:59 Baso # (Auto) 0.0 10^3/uL (0.0-0.1) 07/14/22 02:59 Absolute Gran (auto) Cancelled 07/08/22 04:06 Nucleated RBC % (auto) 0.9 % 07/14/22 02:59 Total Counted 100 (0-100) 07/11/22 04:17 Atypical Lymphs % 0.0 % (0-5) 07/11/22 04:17 Absolute Neutrophils 3.2 10^3/cmm (1.4-6.5) 07/11/22 04:17 Segmented Neutrophils 64 % 07/11/22 04:17 Abs Segm Neuts (Man) 3.1 10/cmm (1.6-7.1) 07/11/22 04:17 Band Neutrophils 2.0 % 07/11/22 04:17 Abs Band Neuts (Man) 0.1 10^3/cmm (0.0-1.2) 07/11/22 04:17 Absolute Lymphocytes 1.4 10^3/cmm (1.2-3.4) 07/11/22 04:17 Lymphocytes (Manual) 29 % 07/11/22 04:17 Monocytes (Manual) 3.0 % 07/11/22 04:17 Absolute Monocytes 0.1 10^3/cmm (0.1-0.6) 07/11/22 04:17 Eosinophils (Manual) 0 % 07/11/22 04:17 Absolute Eosinophils 0.0 10^3/cmm (0.0-0.7) 07/11/22 04:17 Basophils (Manual) 1.0 % 07/11/22 04:17 Absolute Basophils 0.0 10^3/cmm (0.0-0.2) 07/11/22 04:17 Metamyelocytes 1.0 % 07/11/22 04:17 Nucleated RBCs 2.0 /100WBC (0-1) H 07/11/22 04:17 Nucleated RBCs # 0.0 /100WBC 07/14/22 02:59 Smudge Cells 1+ H 07/11/22 04:17 Platelet Estimate Decreased (Normal) L 07/11/22 04:17 Giant Platelets Trace 07/11/22 04:17 Poikilocytosis 1+ H 07/11/22 04:17 Anisocytosis 1+ H 07/11/22 04:17 Macrocytosis Trace 07/11/22 04:17 Retic Production Index 1.46 07/14/22 02:59 Haptoglobin 10.0 mg/L (30-200) L 07/14/22 02:59 PT 18.10 SECONDS (12.1-14.9) H 07/14/22 18:13 INR 1.45 (0.8-1.2) H 07/14/22 18:13 APTT 39.8 SECONDS (23.9-36.7) H 07/14/22 18:13 Fibrinogen 149 mg/dL (174-498) L 07/14/22 18:13 Fibrin Degrad Products Pos, 10-40 ug/mL (NEG) H 07/14/22 18:13 D-Dimer 2.35 ug/mIFEU (0-0.59) H 07/14/22 18:13 Sodium 136 mmol/L (136-145) 07/14/22 02:59 Potassium 4.8 mmol/L (3.5-5.1) 07/14/22 02:59 Chloride 102 mmol/L (98-107) 07/14/22 02:59 Carbon Dioxide 27 mmol/L (22-29) 07/14/22 02:59 Anion Gap 11.8 (5-19) 07/14/22 02:59 BUN 28 mg/dL (8-23) H 07/14/22 02:59 Creatinine 2.5 mg/dL (0.5-0.9) H 07/14/22 02:59 GFR Calculation Not Reportable 07/14/22 02:59 Glucose 74 mg/dL (65-115) 07/14/22 02:59 POC Glucose 182 mg/dL (70-110) H 07/07/22 21:34 Calculated Osmolality 286 mOsm/kg (285-295) 07/14/22 02:59 Lactic Acid 1.4 mmol/L (0.5-2.2) 07/08/22 04:06 Lactate 2.4 mmol/L (0.5-2.2) H 07/07/22 18:40 Calcium 9.2 mg/dL (8.5-10.5) 07/14/22 02:59 Phosphorus 3.5 mg/dL (2.5-4.5) 07/13/22 04:19 Magnesium 2.2 mg/dL (1.7-2.3) 07/13/22 04:19 Total Bilirubin 1.2 mg/dL (0.15-1.2) 07/14/22 02:59 Direct Bilirubin 0.70 mg/dL (0.00-0.30) H 07/14/22 02:59 Indirect Bilirubin 0.50 07/14/22 02:59 AST 19 U/L (0-32) 07/14/22 02:59 ALT 9 U/L (0-33) 07/14/22 02:59 Alkaline Phosphatase 77 U/L (35-105) 07/14/22 02:59 Lactate Dehydrogenase 183 U/L (135-214) 07/14/22 02:59 Troponin T Baseline 36 ng/L (0-10) H 07/08/22 04:06 Troponin T 120 Minute 33.90 ng/L (0-10) H 07/08/22 07:35 Delta Troponin T -2.10 ABS# (0-10) L 07/08/22 07:35 Troponin T Hi Sens 6Hr 36.76 ng/L (0-10) H 07/08/22 10:28 Troponin T Hi Sens 6Hr Delta 0.76 ng/L (0-12) 07/08/22 10:28 NT-Pro-B Natriuret Pep 1467 pg/mL (0-450) H 07/07/22 18:40 Total Protein 6.5 g/dL (6.6-8.7) L 07/14/22 02:59 Albumin 4.1 g/dL (3.5-5.2) 07/14/22 02:59 Globulin 2.4 g/dL (1.3-4.6) 07/14/22 02:59 Urine Color Yellow (Yellow) 07/07/22 20:30 Urine Appearance Hazy (CLEAR) A 07/07/22 20:30 Urine pH 5 (5-7) 07/07/22 20:30 Ur Specific [place] 1.025 (1.005-1.030) 07/07/22 20:30 Urine Protein 1+ (Negative) H 07/07/22 20:30 Urine Glucose (UA) Norm (Normal) 07/07/22 20:30 Urine Ketones Negative (Negative) 07/07/22 20:30 Urine Blood Neg (Negative) 07/07/22 20:30 Urine Nitrate Negative (Negative) 07/07/22 20:30 Urine Bilirubin 1+ (Negative) H 07/07/22 20:30 Urine Urobilinogen Neg mg/dL (Negative) 07/07/22 20:30 Ur Leukocyte Esterase Negative (Negative) 07/07/22 20:30 Urine RBC None /hpf (0-2) 07/07/22 20:30 Urine WBC None /hpf (0-5) 07/07/22 20:30 Ur Squamous Epith Cells 0-4 /hpf (0-5) H 07/07/22 20:30 Amorphous Sediment Not Reportable 07/07/22 20:30 Urine Bacteria 1+ /hpf (NONE) H 07/07/22 20:30 Hyaline Casts 0-4 /lpf H 07/07/22 20:30 Urine Mucus 2+ /hpf 07/07/22 20:30 Nasal Influ A H1 2008 PCR Cancelled 07/13/22 20:30 Random Vancomycin 15.1 ug/mL (20.0-40.0) L 07/10/22 02:43 Adenovirus (PCR) Cancelled 07/13/22 20:30 C. pneumoniae DNA (PCR) Cancelled 07/13/22 20:30 Coronavirus 229E (PCR) Cancelled 07/13/22 20:30 Human Metapneumovir PCR Cancelled 07/13/22 20:30 Influenza A (H1) PCR Cancelled 07/13/22 20:30 Influenza A (H3) PCR Cancelled 07/13/22 20:30 Influenza Type A (PCR) Cancelled 07/13/22 20:30 Influenza Type B (PCR) Cancelled 07/13/22 20:30 M. pneumoniae (PCR) Cancelled 07/13/22 20:30 Parainfluenza 1 (PCR) Cancelled 07/13/22 20:30 Parainfluenza 2 (PCR) Cancelled 07/13/22 20:30 Parainfluenza 3 (PCR) Cancelled 07/13/22 20:30 Parainfluenza 4 (PCR) Cancelled 07/13/22 20:30 RSV Type A (PCR) Cancelled 07/13/22 20:30 RSV Type B (PCR) Cancelled 07/13/22 20:30 Entero/Rhino (PCR) Cancelled 07/13/22 20:30 SARS-CoV-2 (PCR) Cancelled 07/13/22 20:30 Blood Type B Positive 07/12/22 04:05 Rho(D) Type Positive 07/12/22 04:05 Antibody Screen Negative 07/12/22 04:05 Crossmatch See Detail 07/12/22 04:05 Radiology Impressions Chest X-Ray 07/09/22 11:29 IMPRESSION: 1. Right-sided double-lumen central line in place ending in the lower one third of the SVC. 2. Increasing cardiac enlargement and pulmonary vascular congestion. This would suggest some degree of CHF. 3. Large volume right-sided pleural effusion with compressive atelectasis of the middle and lower lobes the right lung. There is diffuse interstitial infiltrate in the right upper lobe and the left lower lobe. Chest/Abdomen/Pelvis CT 07/13/22 14:29 IMPRESSION: 1. Small bilateral pleural effusions with compressive atelectasis. 2. Lung volumes are decreased predominantly due to compressive atelectasis. 3. Small amount of ascites. 4. Extensive soft tissue anasarca. 5. Cholelithiasis. Fluid surrounding the gallbladder is probably related to the ascites. No hepatic duct dilatation. 6. No GI tract obstruction. 7. Weber catheter. Modified Barium Swallow 07/14/22 14:34 IMPRESSION: Modified barium swallow as above. Recent Clincial Data Last Vital Signs Temp 97.6 F 07/14/22 20:00 Pulse 80 07/14/22 22:29 Resp 23 H 07/14/22 22:00 BP 124/72 07/14/22 22:00 Pulse Ox 100 07/14/22 22:29 O2 Del Method Room Air 07/14/22 18:00 O2 Flow Rate 2 07/13/22 15:30 FiO2 30 07/14/22 22:29 Vital Signs Temp Pulse Resp BP Pulse Ox O2 Del Method FiO2 07/14/22 22:29 80 100 30 07/14/22 22:00 80 23 H 124/72 91 07/14/22 21:30 80 23 H 104/74 93 07/14/22 21:00 80 26 H 115/62 94 07/14/22 20:30 80 24 H 118/61 92 07/14/22 20:00 97.6 F 80 25 H 118/71 91 07/14/22 19:30 91 21 H 122/65 91 07/14/22 19:00 81 35 H 120/83 89 L 07/14/22 18:30 80 22 H 94 07/14/22 18:00 81 22 H 119/85 94 Room Air 07/14/22 17:00 80 28 H 118/66 94 Room Air 07/14/22 16:00 80 24 H 123/74 96 Room Air 07/14/22 15:00 80 21 H 101/63 98 Room Air 07/14/22 14:00 80 22 H 112/65 96 Room Air 07/14/22 14:00 80 07/14/22 13:30 80 22 H 115/68 96 Room Air 07/14/22 13:00 80 19 H 95/66 96 Room Air 07/14/22 12:30 80 22 H 113/65 98 Room Air 07/14/22 12:00 80 26 H 101/71 96 Room Air 07/14/22 11:30 80 28 H 111/66 95 Room Air 07/14/22 11:00 80 32 H 94 Room Air 07/14/22 10:43 84 17 Room Air 07/14/22 13:10 97.6 F 80 22 H 112/65 96 07/14/22 12:54 97.8 F 16 95/66 96 Intake & Output/Weight 07/12/22 07/13/22 07/14/22 07/15/22 06:59 06:59 06:59 06:59 Intake Total 1046.124 / 1046.124 120.257 / 978.421 6110 / 1360 1260 / 1260 Output Total 150 / 150 252 / 252 285 / 285 225 / 225 Balance 896.124 / 896.124 -131.743 / -412.481 0559 / 1075 1035 / 1035 Weight 94.801 kg 96.162 kg Vitals Last Vital Signs Temp 97.6 F 07/14/22 20:00 Pulse 80 07/14/22 22:29 Resp 23 H 07/14/22 22:00 BP 124/72 07/14/22 22:00 Pulse Ox 100 07/14/22 22:29 O2 Del Method Room Air 07/14/22 18:00 O2 Flow Rate 2 07/13/22 15:30 FiO2 30 07/14/22 22:29 TS Medications Medications Alteplase, Recombinant (Alteplase 1 Mg/Ml Sdv 2 Ml) 0 mg INTRACATH Q2H PRN; Protocol PRN Reason: Poor Catheter Flow/ Clotted Catheter Benzonatate (Benzonatate 100 Mg Capsule) 200 mg PO TID PRN PRN Reason: COUGH Last Admin: 07/14/22 05:36 Dose: 200 mg Furosemide (Furosemide 10 Mg/Ml Sdv 4ml) 40 mg IVP Q12H [facility] Last Admin: 07/14/22 12:33 Dose: 40 mg Heparin Sodium (Porcine) (Heparin Lock Flush 500 Unit/5 Ml Syringe) 500 unit IV PRN PRN PRN Reason: At CRRT disconnect Last Admin: 07/11/22 00:46 Dose: 500 unit Piperacillin Sod/Tazobactam (Sod 3.375 gm/ Sodium Chloride) 50 mls @ 12.5 mls/hr IV Q12H [facility] Last Admin: 07/14/22 14:49 Dose: Not Given Albumin Human (Albumin) 25 g in 100 mls @ 60 mls/hr IV Q8H [facility] Last Admin: 07/14/22 20:44 Dose: 60 mls/hr Non-Formulary Medication (Lokelma) 10 gm PO CONT [facility] Last Admin: 07/14/22 07:39 Dose: Not Given Ondansetron HCl (Ondansetron 2 Mg/Ml Sdv 2 Ml) 4 mg IVP Q8H PRN PRN Reason: vomiting, or N/V if npo Pantoprazole Sodium (Pantoprazole Dr 40 Mg Tablet) 40 mg PO DAILY [facility] Last Admin: 07/14/22 08:07 Dose: 40 mg Polyethylene Glycol (Polyethylene Glycol 3350 Pkt 17 Gm) 17 gm PO DAILY [facility] Last Admin: 07/14/22 08:07 Dose: 17 gm Senna/Docusate Sodium (Sennosides-Docusate Tablet) 1 tab PO BID [facility] Last Admin: 07/14/22 18:37 Dose: 1 tab Sodium Chloride (Sodium Chloride 0.9% 100 Ml Bag) 50 ml IV PRN PRN PRN Reason: Blood transfusion prime and flush Stop: 07/15/22 08:50 Discontinued Medications CRRT Dialysis Solution (Prismasol Bgk 4/2.5 - 5,000 Ml Bag) 5,000 ml CRRT CONT [facility]; Protocol Last Admin: 07/09/22 22:23 Dose: 5,000 ml CRRT Dialysis Solution (Prismasol Bgk 4/2.5 - 5,000 Ml Bag) 5,000 ml CRRT CONT KACEY; Protocol Last Admin: 07/09/22 22:23 Dose: 5,000 ml CRRT Dialysis Solution (Phoxillum Bk 4/2.5 - 5,000 Ml Bag) 5,000 ml CRRT CONT KACEY; Protocol Last Admin: 07/10/22 08:58 Dose: 5,000 ml CRRT Dialysis Solution (Phoxillum Bk 4/2.5 - 5,000 Ml Bag) 5,000 ml CRRT CONT KACEY; Protocol Last Admin: 07/10/22 08:47 Dose: 5,000 ml CRRT Dialysis Solution (Prismasol Bgk 4/2.5 - 5,000 Ml Bag) 5,000 ml CRRT CONT KACEY; Protocol Last Admin: 07/10/22 18:32 Dose: 5,000 ml CRRT Dialysis Solution (Prismasol Bgk 4/2.5 - 5,000 Ml Bag) 5,000 ml CRRT CONT KACEY; Protocol Last Admin: 07/10/22 18:27 Dose: 5,000 ml Calcium Gluconate (Calcium Gluconate 0.1 Gm/Ml 10% Sdv 10ml) 1 gm IVP ONCE ONE Stop: 07/07/22 20:36 Last Admin: 07/07/22 21:06 Dose: 1 gm Calcium Gluconate (Calcium Gluconate 0.1 Gm/Ml 10% Sdv 10ml) 1 gm IVP ONCE ONE Stop: 07/08/22 06:20 Last Admin: 07/08/22 06:38 Dose: 1 gm Dextrose (Dextrose 50% Syringe 50 Ml) 50 ml IVP ONCE ONE Stop: 07/07/22 20:36 Last Admin: 07/07/22 21:10 Dose: Not Given Epoetin David (Epoetin David 1000 Unit/0.05 Ml (Non-Esrd)) 20,000 unit SUBCUT NOW ONE Stop: 07/14/22 09:04 Last Admin: 07/14/22 11:00 Dose: 20,000 unit Heparin Sodium (Porcine) (Heparin 5,000 Unit/Ml Inj 1 Ml) 5,000 unit SUBCUT Q12H KACEY Last Admin: 07/10/22 10:14 Dose: 5,000 unit Sodium Chloride (Sodium Chloride 0.9%) 500 mls @ 999 mls/hr IV .Q31M ONE Stop: 07/07/22 20:00 Last Infusion: 07/07/22 21:06 Dose: Infused Dextrose 35.5 ml/ Sterile (Water 14.5 ml/ N/A) 50 mls @ 600 mls/hr IVP ONCE ONE Stop: 07/07/22 21:19 Last Infusion: 07/07/22 21:24 Dose: Infused Sodium Chloride (Sodium Chloride 0.9%) 1,000 mls @ 75 mls/hr IV .[id number] [facility] Last Infusion: 07/09/22 12:43 Dose: 0 mls/hr Albumin Human (Albumin) 12.5 gm in 250 mls @ 300 mls/hr IV ONCE ONE Stop: 07/08/22 01:29 Last Infusion: 07/08/22 01:44 Dose: Infused Piperacillin Sod/Tazobactam (Sod / Sodium Chloride) 50 mls @ 0 mls/hr [id number] CONT [facility]; Protocol Albumin Human (Albumin) 25 g in 100 mls @ 60 mls/hr IV Q8H [facility] Last Infusion: 07/11/22 02:25 Dose: Infused Norepinephrine Bitartrate 4 mg (/ Dextrose) 254 mls @ 0 mls/hr IV .Q0M [facility]; Protocol Last Titration: 07/12/22 18:12 Dose: Infused Vancomycin HCl / Sodium (Chloride) 250 mls @ 0 mls/hr [id number] PROTOCOL [facility]; Protocol Vancomycin HCl 750 mg/ Sodium (Chloride) 250 mls @ 250 mls/hr IV Q36H [facility] Last Infusion: 07/11/22 05:45 Dose: Infused Insulin Human Regular 10 unit/ (N/A) 0.1 mls @ 0 mls/hr IVP ONCE ONE Stop: 07/08/22 06:20 Last Infusion: 07/08/22 07:24 Dose: Infused Dextrose 35.5 ml/ Sterile (Water 14.5 ml/ N/A) 50 mls @ 600 mls/hr IVP ONCE ONE Stop: 07/08/22 06:34 Last Infusion: 07/08/22 07:23 Dose: Infused Sodium Chloride (Sodium Chloride 0.9%) 1,000 mls @ 150 mls/hr IV .[id number] [facility] Last Admin: 07/10/22 22:01 Dose: 150 mls/hr Insulin Human Regular (Insulin Regular-Human 100 Units/1 Ml) 10 unit IVP ONCE ONE Stop: 07/07/22 20:36 Last Admin: 07/07/22 21:14 Dose: 10 unit Nystatin (Nystatin 100,000 Unit/Ml Udc 5 Ml) 400,000 unit PO QID KACEY Sodium Bicarbonate (Sodium Bicarbonate 1 Meq/Ml Sdv 50ml) 50 meq IVP ONCE ONE Stop: 07/08/22 07:14 Last Admin: 07/08/22 07:40 Dose: 50 meq Sodium Chloride (Sodium Chloride 0.9% 1,000 Ml Bag) 1,000 - 7,000 ml CRRT PRN PRN PRN Reason: For priming CRRT Machine Last Admin: 07/09/22 12:51 Dose: 7,000 ml Sodium Polystyrene Sulfonate (Sodium Polystyrene Sulfonate 15 Gm/60 Ml Btl) 15 gm PO ONCE ONE Stop: 07/07/22 22:41 Last Admin: 07/07/22 23:25 Dose: 15 gm Sodium Polystyrene Sulfonate (Sodium Polystyrene Sulfonate 15 Gm/60 Ml Btl) 30 gm OR ONCE ONE Stop: 07/08/22 07:14 Last Admin: 07/08/22 07:43 Dose: 30 gm Allergies atropine Allergy (Unknown, Verified 07/02/22 11:11) Unknown benztropine Allergy (Unknown, Verified 07/02/22 11:11) Unknown cefadroxil Allergy (Unknown, Verified 07/02/22 11:11) Unknown cimetidine Allergy (Unknown, Verified 07/02/22 11:11) Unknown enalapril Allergy (Unknown, Verified 07/02/22 11:11) Unknown enalaprilat Allergy (Unknown, Verified 07/02/22 11:11) Unknown gabapentin Allergy (Unknown, Verified 07/02/22 11:11) Unknown Sulfa (Sulfonamide Antibiotics) Allergy (Unknown, Verified 07/02/22 11:11) Unknown tramadol Allergy (Unknown, Verified 07/02/22 11:11) ADR-Itching zolpidem Allergy (Unknown, Verified 07/02/22 11:11) Unknown albuterol Allergy (Verified 07/02/22 11:11) ALGY-Swell Lip/Tongue/Throat Home Medications eszopiclone 2 mg tablet (Lunesta) 2 mg PO BEDTIME 05/16/19 [History Confirmed 07/07/22] hydrocodone 5 mg-acetaminophen 325 mg tablet 1 tab PO BID PRN Pain 05/16/19 [History Confirmed 07/07/22] lubiprostone 24 mcg capsule (Amitiza) 24 mcg PO BID 05/16/19 [History Confirmed 07/07/22] multivitamin 1 tab PO BEDTIME 05/16/19 [History Confirmed 07/07/22] ropinirole 2 mg tablet 2 mg PO BEDTIME 10/11/20 [History Confirmed 07/07/22] budesonide 160 mcg-glycopyr 9 mcg-formot 4.8 mcg/actuation HFA inhaler (Breztri Aerosphere) 2 inh inhalation BID 02/13/21 [History Confirmed 07/07/22] sennosides 8.6 mg tablet (senna) See Rx Instructions .Route .COMPLEX 06/18/21 [History Confirmed 07/07/22] vit C 250 mg-vit E 90 mg-zinc 40 mg-copper 1 wn-nrgpmo-hesajx capsule (PreserVision AREDS-2) 1 tab PO BID 06/18/21 [History Confirmed 07/07/22] ferrous gluconate 324 mg (38 mg iron) tablet 324 mg PO DAILY 08/01/21 [History Confirmed 07/07/22] nystatin 100,000 unit/mL oral suspension 100,000 unit PO BID 08/01/21 [History Confirmed 07/07/22] furosemide 40 mg tablet 40 mg PO DAILY 01/19/22 [History Confirmed 07/07/22] metoprolol succinate 25 mg tablet,extended release 24 hr 25 mg PO DAILY #90 tabs 03/10/22 [Rx Confirmed 07/07/22] guaifenesin 100 mg/5 mL oral liquid (Mucinex Fast-Max Chest Congestion) 200 mg (10 mL) PO Q4H PRN cough #473 mL 03/26/22 [Rx Confirmed 07/07/22] levalbuterol tartrate 45 mcg/actuation aerosol inhaler (Xopenex HFA) 2 inh inhalation Q6H #15 grams 03/26/22 [Rx Confirmed 07/07/22] lansoprazole 30 mg capsule,delayed release (Prevacid) 30 mg PO BID #180 caps 03/30/22 [Rx Confirmed 07/07/22] montelukast 10 mg tablet (Singulair) 10 mg PO DAILY #30 tabs 06/02/22 [Rx Confirmed 07/07/22] ipratropium bromide 21 mcg (0.03 %) nasal spray 2 spray intranasal TID PRN NASAL DRAINAGE 06/22/22 [History Confirmed 07/07/22] pregabalin 75 mg capsule (Lyrica) 75 mg PO DAILY 06/22/22 [History Confirmed 07/07/22] propranolol 20 mg tablet 20 mg PO QAM 06/22/22 [History Confirmed 07/07/22] levofloxacin 750 mg tablet 750 mg PO Q48H 14 days #7 tabs 06/27/22 [Rx Confirmed 07/07/22] Discharge Plan Discharge Patient Disposition: Xfer Other Condition: Stable Prescriptions: No Action Amitiza 24 mcg capsule 24 mcg PO BID multivitamin Tablet 1 tab PO BEDTIME eszopiclone [Lunesta] 2 mg tablet 2 mg PO BEDTIME hydrocodone-acetaminophen 5-325 mg tablet 1 tab PO BID PRN (Reason: Pain) Breztri Aerosphere 160-9-4.8 mcg/actuation HFA aerosol inhaler 2 inh inhalation BID ropinirole 2 mg tablet 2 mg PO BEDTIME furosemide 40 mg tablet 40 mg PO DAILY levalbuterol tartrate [Xopenex HFA] 45 mcg/actuation HFA aerosol inhaler 2 inh inhalation Q6H Qty: 15 3RF guaifenesin [Mucinex Fast-Max Chest-Congest] 100 mg/5 mL liquid 200 mg PO Q4H PRN (Reason: cough) Qty: 473 3RF metoprolol succinate 25 mg tablet extended release 24 hr 25 mg PO DAILY Qty: 90 3RF lansoprazole [Prevacid] 30 mg capsule,delayed release(DR/EC) 30 mg PO BID Qty: 180 3RF montelukast [Singulair] 10 mg tablet 10 mg PO DAILY Qty: 30 5RF sennosides [senna] 8.6 mg Tablet See Rx Instructions .ROUTE .COMPLEX Rx Instructions: 17.2 mg orally in the morning / 8.6 mg orally in the evening PreserVision AREDS-2 250-90-40-1 mg Capsule 1 tab PO BID ipratropium bromide 21 mcg (0.03 %) spray,non-aerosol 2 spray INTRANASAL TID PRN (Reason: NASAL DRAINAGE) pregabalin [Lyrica] 75 mg Capsule 75 mg PO DAILY propranolol 20 mg tablet 20 mg PO QAM levofloxacin 750 mg tablet 750 mg PO Q48H 14 Days Qty: 7 0RF nystatin 100,000 unit/mL Suspension 100,000 unit PO BID Rx Instructions: administer 1/2 of dose in each side of the mouth ferrous gluconate 324 mg (38 mg iron) Tablet 324 mg PO DAILY Discharge Orders: Discharge Order (Routine); Ordered 07/15/22 Ordered By: Shelly Turner Referrals: Neeraj Cardoza MD [Primary Care Provider] - Transfer Attestations Time Spent in Transfer Care: greater than 30 min Quality Metrics Clinical Quality Measures [ No reported AMI, CVA or VTE this stay] Coding Level of Care Code Acute Code for [facility] Diagnoses Acute kidney injury N17.9
[2022-07-15] VITALS (51 sets, daily range): BP systolic 86–140; BP diastolic 51–90; PULSE 70–82; RESP 12–27; TEMP 35.7–36.3; O2SAT 89–100
[2022-07-15] MEDS: FUROsemide 10 mg/mL SDV 4mL 40 MG IVP ×3 (00:29→23:14)
[2022-07-15] MEDS: piperacillin-tazobactam 3.375 GM in sodium chloride 0.9% (plus) 50 ML IV ×2 (00:30→15:08)
[2022-07-15 03:40] LABS: Adenovirus Not Detected (NOT DETECT); Chlamydia Pneumoniae Not Detected (NOT DETECT); Coronavirus 229E,HKU1,NL63,OC4 Not Detected (NOT DETECT); Human Metapneumovirus Not Detected (NOT DETECT); Human Rhinovirus/Enterovirus Not Detected (NOT DETECT); Influenza A Not Detected (NOT DETECT); Influenza A H1 Not Detected (NOT DETECT); Influenza A H1-2009 Not Detected (NOT DETECT); Influenza A H3 Not Detected (NOT DETECT); Influenza B Not Detected (NOT DETECT); Mycoplasma Pneumoniae Not Detected (NOT DETECT); Parainfluenza Virus Type 1 Not Detected (NOT DETECT); Parainfluenza Virus Type 2 Not Detected (NOT DETECT); Parainfluenza Virus Type 3 Not Detected (NOT DETECT); Parainfluenza Virus Type 4 Not Detected (NOT DETECT); Respiratory Syncytial Virus A Not Detected (NOT DETECT); Respiratory Syncytial Virus B Not Detected (NOT DETECT); SARS-COV-2 Not Detected (NOT DETECT)
[2022-07-15] MEDS: albumin 25 G/100 ML BAG 60 G IV ×3 (04:11→20:51)
[2022-07-15] MEDS: sennosides-docusate Tablet 1 TAB PO (09:07)
[2022-07-15] MEDS: pantoprazole DR 40 mg Tablet PO (09:07)
[2022-07-15] MEDS: polyethylene glycol 3350 Pkt 17 gm PO (09:08)
[2022-07-15 09:25] LABS: Basophils # 0.1 10^3/uL (0.0-0.1); Basophils % 1.4 %; Eosinophils # 0.3 10^3/uL (0.0-0.8); Eosinophils % 4.2 %; Hematocrit 27.9 % (37.0-47.0); Hemoglobin 8.6 g/dL (11.5-15.3); Lymphocytes % 17.5 %; Mean Corpuscular HGB Conc 30.8 g/dL (30.0-36.0); Mean Corpuscular Hemoglobin 29.2 pg (28.0-34.0); Mean Corpuscular Volume 94.6 fl (81-99); Monocytes # 0.4 10^3/uL (0.2-0.9); Monocytes % 6.8 %; Neutrophils # 4.13 10^3/uL (1.8-7.7); Neutrophils % 69.9 %; Nucleated Red Blood Cells # 0.1 /100WBC; Nucleated Red Blood Cells % 1.9 %; Platelet Count 46 10^3/cmm (130-400); Red Blood Count 2.95 10^6/uL (4.1-5.3); Red Cell Distribution Width 20.1 % (12.1-15.1); White Blood Count 5.9 10^3/uL (4.0-10.0)
[2022-07-15 10:23] LABS: Anion Gap 19.5 (5-19); Blood Urea Nitrogen 31 mg/dL (8-23); Calcium 9.5 mg/dL (8.5-10.5); Carbon Dioxide 22 mmol/L (22-29); Chloride 101 mmol/L (98-107); Glucose 116 mg/dL (65-115); Osmolality Calculated 294 mOsm/kg (285-295); Potassium 4.5 mmol/L (3.5-5.1); Sodium 138 mmol/L (136-145)
--- NOTE | 2022-07-15 12:53 | PM.PN ---
Subjective Subjective: denies nay complaints UOP 650 cc Medications: Reviewed: Yes Vitals/I&O/Wt Last Vital Signs Temp 97.1 F L 07/15/22 04:00 Pulse 80 07/15/22 12:00 Resp 25 H 07/15/22 12:00 BP 119/80 07/15/22 12:00 Pulse Ox 95 07/15/22 12:00 O2 Del Method Nasal Cannula 07/15/22 08:00 O2 Flow Rate 2 07/13/22 15:30 FiO2 30 07/15/22 06:00 07/14/22 07/15/22 07/15/22 22:59 06:59 14:59 Intake Total 690 / 1360 150 / 1510 Output Total 450 / 450 225 / 675 Balance 240 / 910 -75 / 835 Physical Exam Narrative: pt awake , alert HEENT PEERLA S1 S2 RRR Lungs clearbil per report + LE edema Urinary Catheter Management: Weber: Cath Placed During This Visit: yes Reason for Continuing Indwelling Catheter: Accurate Measurement of Urinary Output in Critically Ill Patients Urinary Catheter Date of Insertion: 07/07/22 Urinary Catheter Time of Insertion: 20:33 Data 07/15/22 09:04 07/15/22 09:04 A&P Assessment and plan (1) Acute kidney injury: 1. Acute on CKD 3 : Cr baseline mid 1 range. Now presents with ANI with Cr 3.1 associated with Hyperkalemia and volume overload. ANI likely - oLiguric ,pt DNR/I , but agrees for temporary HD if needed --S/P CRRT , tolerated well , Holding CRRT currently and monitor renal fxn -Renal function stable but patient is volume overloaded but blood pressures borderline low -s/p IV albumin and IV Lasix- no adequate diuresis, cwe will attempt Ultrafiltration with HDtoday , BP borderline low -Avoid Nephrotoxins and IV contrast studies 2. hyperkalemia : improved on CRRT 3. H/o CHF 4. Metabolic acidosis , mild , monitor 5. Anemia :will give Epogen , consider PRBC transfusion today pt DNR/I, If no improvement in renal function , Not a retirement HD candidate likely Attestations Medical Necessity Statement*: per medicine Coding Level of Care Code Acute Code for [facility] Diagnoses Acute kidney injury N17.9
[2022-07-15 15:04] LABS: UFH High Dose 100 IU/ML 0 % Release; UFH Low Dose 0.1 IU/ML 0 % Release; UFH Low Dose 0.5 IU/ML 0 % Release; UFH SRA Result Negative (Negative)
[2022-07-15] MEDS: epoetin alfa 1000 Unit/0.05 mL (non-esrd) 20000 UNIT SUBCUT (15:08)
[2022-07-15] MEDS: heparin, porcine 1,000 unit/mL INJ 10 mL 10000 UNIT INTRACATH (15:08)
[2022-07-15 15:27] LABS: Hepatitis A Antibody IgM Non-Reactive (Nonreactive); Hepatitis B Core AB, Total Non-Reactive (Nonreactive); Hepatitis B Surface AB 3.5 (11.5-1000); Hepatitis B Surface Antigen Non-Reactive (Nonreactive); Hepatitis C Virus Antibody Non-Reactive (Nonreactive)
--- NOTE | 2022-07-15 17:13 | PM.PN ---
Subjective Subjective: Patient was set up to be transferred to [facility] however I received a call from their hospitalist Dr. Prado this morning that upon further review with the kohinoor operator over at [facility], it was opined that patient needs a tertiary center, and that transferring her to [facility] would probably not fulfill her required needs. No new complaints from the patient side today. She is net 11 L positive since admission. Creatinine at 2.4 today. Urine output at 650 cc. Platelets are slightly improved today at 46,000 from 33,000 yesterday. No signs of active bleeding at this time. Her blood pressure this morning is ranging between 89-90 systolic, does improve after albumin infusion. We will plan to start midodrine today. Medications: Reviewed: Yes Vitals/I&O/Wt Last Vital Signs Temp 97.1 F L 07/15/22 04:00 Pulse 80 07/15/22 12:00 Resp 18 07/15/22 16:00 BP 119/80 07/15/22 12:00 Pulse Ox 95 07/15/22 12:00 O2 Del Method Nasal Cannula 07/15/22 08:00 O2 Flow Rate 2 07/13/22 15:30 FiO2 30 07/15/22 06:00 07/15/22 07/15/22 07/15/22 06:59 14:59 22:59 Intake Total 150 / 1510 Output Total 225 / 675 Balance -75 / 835 Physical Exam Urinary Catheter Management: Weber: Cath Placed During This Visit: yes Reason for Continuing Indwelling Catheter: Accurate Measurement of Urinary Output in Critically Ill Patients Urinary Catheter Date of Insertion: 07/07/22 Urinary Catheter Time of Insertion: 20:33 Data 07/15/22 09:04 07/15/22 09:04 A&P Assessment and plan (1) Bicytopenia: (2) Acute kidney injury: (3) Restrictive lung disease: (4) Autoimmune hemolytic anemia: Plan (1) Septic shock, shock is now resolved. 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 She has the appearance of an effusion however multiple past thoracentesis have not shown any significant fluid pockets. Likely that radiological appearance is related to hemidiaphragm elevation Will check CT chest for interval development of pneumonia check CT abdomen/pelvis - renal US unable to visualize kidneys or urinary system - evaluate for any obstrcutive process. Patient underwent bronchsocopy on last admission which showed edematous bronchial wall however respiratory cx remained negative. Continue Zosyn for now pending imaging, no infectious source grossly evident at this time (2) Acute kidney injury: ~75 mL urine overnight Strict I's and O's Daily weights Nephro following, anticipate CRRT (3) COPD (chronic obstructive pulmonary disease): Breathing treatments as needed (4) LRTI (lower respiratory tract infection): Broad-spectrum antibiotics as above (5) Heart failure: Urgent limited echo is pending (6) Hyperkalemia: Trend labs Nephro following (7) Bicytopenia: Worsening pancytopenia unclear etiology may be related to sepsis however no untreated source appears to be evident at this time HIT panel pending elevated T bili, anemia, [place] cells on differenetial, will check haptoglobin and LDH to evalaute for hemolysis Check retic index with AM labs Plan for today. Transfer to [facility] is currently on hold. Platelets slightly improving today. We will monitor over the next 24 hours. If stable then likely that her hemolytic anemia is resolving and we can continue to monitor her here. Urine output slightly improved at 650 cc. Creatinine at 2.4. No obvious source of untreated sepsis evident currently. Discussed with nephrology that patient is still 11 L up, potential HD currently on hold due to borderline blood pressure pressures ranging 80-90 systolic. We will start midodrine 5 mg p.o. 3 times daily, hopefully with improved pressures we can resume HD. Attestations Medical Necessity Statement*: Monitor thrombocytopenia, monitor anemia, follow-up HIT panel and [facility] 13, follow-up renal for dialysis plans. Coding Level of Care Code Acute Code for [facility] Diagnoses Bicytopenia D75.89 Acute kidney injury N17.9 Restrictive lung disease J98.4 Autoimmune hemolytic anemia D59.10
[2022-07-15] MEDS: midodrine 5 mg TABLET PO (20:51)
[2022-07-15] MEDS: benzonatate 100 mg Capsule 200 MG PO (23:13)
[2022-07-15] MEDS: ondansetron 2 mg/ML SDV 2 mL 4 MG IVP (23:13)
[2022-07-16] VITALS (51 sets, daily range): BP systolic 85–120; BP diastolic 48–75; PULSE 80–87; RESP 12–34; TEMP 36.3–37.1; O2SAT 89–100
[2022-07-16] MEDS: albumin 25 G/100 ML BAG 60 G IV ×3 (03:02→20:01)
[2022-07-16] MEDS: piperacillin-tazobactam 3.375 GM in sodium chloride 0.9% (plus) 50 ML IV (03:03)
[2022-07-16 04:56] LABS: Basophils # 0.1 10^3/uL (0.0-0.1); Basophils % 1.3 %; Eosinophils # 0.1 10^3/uL (0.0-0.8); Eosinophils % 2.8 %; Hematocrit 25.1 % (37.0-47.0); Hemoglobin 7.7 g/dL (11.5-15.3); Lymphocytes # 0.8 10^3/uL (0.8-4.8); Mean Corpuscular HGB Conc 30.7 g/dL (30.0-36.0); Mean Corpuscular Hemoglobin 28.9 pg (28.0-34.0); Mean Corpuscular Volume 94.4 fl (81-99); Monocytes # 0.5 10^3/uL (0.2-0.9); Monocytes % 9.7 %; Neutrophils # 3.22 10^3/uL (1.8-7.7); Nucleated Red Blood Cells # 0.1 /100WBC; Nucleated Red Blood Cells % 1.9 %; Platelet Count 41 10^3/cmm (130-400); Red Blood Count 2.66 10^6/uL (4.1-5.3); Red Cell Distribution Width 20.7 % (12.1-15.1); White Blood Count 4.7 10^3/uL (4.0-10.0)
[2022-07-16 05:07] LABS: Slide Review Slide Review Perform
[2022-07-16 05:12] LABS: Alanine Aminotransferase 7 U/L (0-33); Albumin Level 4.7 g/dL (3.5-5.2); Alkaline Phosphatase 61 U/L (35-105); Aspartate Amino Transferase 15 U/L (0-32); Blood Urea Nitrogen 17 mg/dL (8-23); Calcium 8.8 mg/dL (8.5-10.5); Carbon Dioxide 27 mmol/L (22-29); Chloride 102 mmol/L (98-107); Globulin 1.8 g/dL (1.3-4.6); Glucose 80 mg/dL (65-115); Osmolality Calculated 289 mOsm/kg (285-295); Sodium 139 mmol/L (136-145); Total Bilirubin 1.9 mg/dL (0.15-1.2); Total Protein 6.5 g/dL (6.6-8.7)
[2022-07-16] MEDS: midodrine 5 mg TABLET PO (09:38)
--- NOTE | 2022-07-16 12:25 | P.PN_ITS ---
Subjective Subjective: platelets stable at 41K today. Hb 7.7. undewent HD yesterday, again undergoing HD now. Medications: Reviewed: Yes Vitals/I&O/Wt Last Vital Signs Temp 98.1 F 07/16/22 09:45 Pulse 80 07/16/22 09:45 Resp 28 H 07/16/22 09:45 BP 109/66 07/16/22 09:45 Pulse Ox 99 07/16/22 08:00 O2 Del Method Nasal Cannula 07/15/22 08:00 O2 Flow Rate 2 07/13/22 15:30 FiO2 30 07/15/22 06:00 07/15/22 07/16/22 07/16/22 22:59 06:59 14:59 Intake Total 750 / 750 100 / 850 Output Total 3013 / 3013 100 / 3113 Balance -2263 / -2263 0 / -2263 Weight last 48 hrs Weight 95.254 kg Weight 95.5 kg Physical Exam Narrative: General:elderly frail lady with multiple hematomas HEENT: PERRLA, pupils bilaterally equal and reactive, pallors not present Chest: Normal vesicular breath sounds, no added sounds, equal good air entry bilaterally CVS: S1-S2 regular, no murmurs, no tachycardia, no gallops, no rubs Abdomen: Soft, nontender, no organomegaly, bowel sounds present Neuro: No focal deficits, no facial deformity, AO x3, power 5/5 in all limbs EXT: anasarca+, multiple hematomas over chest, B/L arms likely from site of Iv lines Urinary Catheter Management: Weber: Cath Placed During This Visit: yes Reason for Continuing Indwelling Catheter: Accurate Measurement of Urinary Output in Critically Ill Patients Urinary Catheter Date of Insertion: 07/07/22 Urinary Catheter Time of Insertion: 20:33 Data 07/16/22 04:12 07/16/22 04:12 A&P Assessment and plan (1) Bicytopenia: (2) Acute kidney injury: (3) Restrictive lung disease: (4) Autoimmune hemolytic anemia: Plan (1) Septic shock, shock is now resolved. 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 She has the appearance of an effusion however multiple past thoracentesis have not shown any significant fluid pockets. Likely that radiological appearance is related to hemidiaphragm elevation CT chest small bilateral pleural effusions with compressive atelectasis. no consolidation CT abdomen/pelvis no obvious abdominal source of infection Patient underwent bronchsocopy on last admission which showed edematous bronchial wall however respiratory cx remained negative. DisContinue Zosyn as received adequate empiric course (2) Acute kidney injury: Urine output appears to be imroving cr at 1.7 today undergoing HD to remove fluid monitor closely (3) COPD (chronic obstructive pulmonary disease): Breathing treatments as needed (4) LRTI (lower respiratory tract infection): D/c Zosyn now (5) Heart failure, chronic, preserved ejection fraction : Normal left ventricular size and systolic function, EF 61 %. No ?regional wall motion abnormalities. ?Moderately increased right ventricular size. Mildly decreased ?right ventricular systolic function.Dilated IVC with decreased respiratory variation. metoprolol on hold due to borderline BP currently on lasix 40mg iv q12h (6) Hyperkalemia: resolved (7) Bicytopenia: Currently stablilized thrombocytopenia in 40K range. S/p 1 PRBC transfusion on 07/14, Hb stable at 7.7 unclear etiology Resp panel negative may be related to sepsis however no untreated source appears to be evident at this time HIT panel now negative elevated T bili, anemia, [place] cells on peripheral smearl, low haptoglobin raise concern for MAHA. Planned for transfer to [facility] initially but this fell through as [facility] recommended transfer to tertiary center. Since plt and Hb appear to have stabilized for now, will monitor closely. Transfer may need to be initiated to [facility] should plt start to fall again. Dvt ppx: on hold due to thrombocytopenia PUD ppx: protonix Attestations Medical Necessity Statement*: continued need for HD, closely monitor plt and hb Coding Level of Care Code Critical Care >/= 30 minutes Diagnoses Bicytopenia D75.89 Acute kidney injury N17.9 Restrictive lung disease J98.4 Autoimmune hemolytic anemia D59.10
[2022-07-16] MEDS: FUROsemide 10 mg/mL SDV 4mL 40 MG IVP ×2 (13:12→23:39)
[2022-07-16] MEDS: midodrine 5 mg TABLET 10 MG PO ×2 (16:26→20:02)
--- NOTE | 2022-07-16 19:53 | PM.PN ---
Subjective Subjective: no acute events Medications: Reviewed: Yes Vitals/I&O/Wt Last Vital Signs Temp 98.2 F 07/16/22 14:38 Pulse 82 07/16/22 16:30 Resp 14 07/16/22 16:30 BP 104/63 07/16/22 16:30 Pulse Ox 99 07/16/22 16:30 O2 Del Method Nasal Cannula 07/15/22 08:00 O2 Flow Rate 2 07/13/22 15:30 FiO2 30 07/15/22 06:00 07/16/22 07/16/22 07/16/22 06:59 14:59 22:59 Intake Total 100 / 850 300 / 300 150 / 450 Output Total 100 / 3113 3300 / 3300 50 / 3350 Balance 0 / -2263 -3000 / -3000 100 / -2900 Weight last 48 hrs Weight 93.9 kg Weight 95.254 kg Weight 95.5 kg Physical Exam Narrative: pt awake , alert HEENT PEERLA S1 S2 RRR Lungs clearbil per report + LE edema Urinary Catheter Management: Weber: Cath Placed During This Visit: yes Reason for Continuing Indwelling Catheter: Accurate Measurement of Urinary Output in Critically Ill Patients Urinary Catheter Date of Insertion: 07/07/22 Urinary Catheter Time of Insertion: 20:33 Data 07/16/22 04:12 07/16/22 04:12 A&P Assessment and plan (1) Acute kidney injury: 1. Acute on CKD 3 : Cr baseline mid 1 range. Now presents with ANI with Cr 3.1 associated with Hyperkalemia and volume overload. ANI likely - oLiguric ,pt DNR/I , but agrees for temporary HD if needed --S/P CRRT , tolerated well , Holding CRRT currently and monitor renal fxn -Renal function stable but patient is volume overloaded but blood pressures borderline low -s/p IV albumin and IV Lasix- no adequate diuresis,HD started , may need detention HD -Avoid Nephrotoxins and IV contrast studies 2. hyperkalemia : improved 3. H/o CHF 4. Metabolic acidosis , mild , monitor 5. Anemia :will give Epogen , consider PRBC transfusion today pt DNR/I Attestations Medical Necessity Statement*: PER MEDICINE Coding Level of Care Code Acute Code for [facility] Diagnoses Acute kidney injury N17.9
[2022-07-17] VITALS (41 sets, daily range): BP systolic 83–121; BP diastolic 42–70; PULSE 80–100; RESP 13–41; TEMP 36.6–36.9; O2SAT 93–100
[2022-07-17] MEDS: albumin 25 G/100 ML BAG 60 G IV ×3 (03:31→20:05)
[2022-07-17] MEDS: heparin, porcine 1,000 unit/mL INJ 10 mL 10000 UNIT INTRACATH ×2 (08:36)
[2022-07-17] MEDS: heparin, porcine 1,000 unit/mL INJ 10 mL 1000 UNIT IV (08:37)
[2022-07-17] MEDS: sennosides-docusate Tablet 1 TAB PO ×2 (08:38→17:21)
[2022-07-17] MEDS: pantoprazole DR 40 mg Tablet PO (08:39)
[2022-07-17] MEDS: midodrine 5 mg TABLET 10 MG PO ×3 (08:39→20:05)
[2022-07-17] MEDS: polyethylene glycol 3350 Pkt 17 gm PO (08:39)
--- NOTE | 2022-07-17 09:22 | PC.HD ---
Prior to treatment initiation, R IJ HD catheter dressing was changed. Substantial ecchymosis was noted, along with a single large drop of oozing blood. Old dressing had dried blood present. Catheter insertion site was cleansed with Chloraprep and a new dressing was applied. No swelling, redness, or pus/discharge noted.
[2022-07-17 10:47] LABS: Basophils # 0.1 10^3/uL (0.0-0.1); Basophils % 1.3 %; Eosinophils # 0.2 10^3/uL (0.0-0.8); Eosinophils % 3.1 %; Hematocrit 25.8 % (37.0-47.0); Hemoglobin 7.6 g/dL (11.5-15.3); Lymphocytes # 0.9 10^3/uL (0.8-4.8); Lymphocytes % 16.8 %; Mean Corpuscular HGB Conc 29.5 g/dL (30.0-36.0); Mean Corpuscular Hemoglobin 28.5 pg (28.0-34.0); Mean Corpuscular Volume 96.6 fl (81-99); Monocytes # 0.3 10^3/uL (0.2-0.9); Monocytes % 5.8 %; Neutrophils # 3.76 10^3/uL (1.8-7.7); Neutrophils % 72.4 %; Nucleated Red Blood Cells # 0.1 /100WBC; Nucleated Red Blood Cells % 1.7 %; Platelet Count 46 10^3/cmm (130-400); Red Blood Count 2.67 10^6/uL (4.1-5.3); Red Cell Distribution Width 21.2 % (12.1-15.1); White Blood Count 5.2 10^3/uL (4.0-10.0)
[2022-07-17 11:01] LABS: INR 1.58 (0.8-1.2)
[2022-07-17 11:06] LABS: D Dimer 2.22 ug/mIFEU (0-0.59)
[2022-07-17 11:08] LABS: Partial Thromboplastin Time 73.4 SECONDS (23.9-36.7)
[2022-07-17 11:09] LABS: Alanine Aminotransferase 7 U/L (0-33); Albumin Level 5.2 g/dL (3.5-5.2); Alkaline Phosphatase 67 U/L (35-105); Anion Gap 13.2 (5-19); Aspartate Amino Transferase 16 U/L (0-32); Blood Urea Nitrogen 11 mg/dL (8-23); Calcium 8.8 mg/dL (8.5-10.5); Carbon Dioxide 29 mmol/L (22-29); Chloride 100 mmol/L (98-107); Globulin 1.9 g/dL (1.3-4.6); Glucose 108 mg/dL (65-115); Osmolality Calculated 288 mOsm/kg (285-295); Potassium 3.2 mmol/L (3.5-5.1); Sodium 139 mmol/L (136-145); Total Bilirubin 1.6 mg/dL (0.15-1.2); Total Protein 7.1 g/dL (6.6-8.7)
[2022-07-17 11:13] LABS: Fibrinogen 128 mg/dL (174-498)
--- NOTE | 2022-07-17 12:25 | PM.PN ---
Subjective Subjective: pt doing well Medications: Reviewed: Yes Vitals/I&O/Wt Last Vital Signs Temp 98.2 F 07/17/22 09:21 Pulse 81 07/17/22 09:21 Resp 25 H 07/17/22 09:21 BP 111/61 07/17/22 09:21 Pulse Ox 99 07/17/22 08:00 O2 Del Method Nasal Cannula 07/15/22 08:00 O2 Flow Rate 2 07/13/22 15:30 FiO2 30 07/17/22 07:54 07/16/22 07/17/22 07/17/22 22:59 06:59 14:59 Intake Total 370 / 670 100 / 770 240 / 240 Output Total 50 / 3350 50 / 3400 Balance 320 / -2680 50 / -2630 240 / 240 Weight last 48 hrs Weight 93.9 kg Weight 95.254 kg Weight 95.5 kg Physical Exam Narrative: pt awake , alert HEENT PEERLA S1 S2 RRR Lungs clearbil per report + LE edema Urinary Catheter Management: Weber: Cath Placed During This Visit: yes Reason for Continuing Indwelling Catheter: Accurate Measurement of Urinary Output in Critically Ill Patients Urinary Catheter Date of Insertion: 07/07/22 Urinary Catheter Time of Insertion: 20:33 Data 07/17/22 10:35 07/17/22 10:35 A&P Assessment and plan (1) Acute kidney injury: 1. Acute on CKD 3 : Cr baseline mid 1 range. Now presents with ANI with Cr 3.1 associated with Hyperkalemia and volume overload. ANI likely - oLiguric ,pt DNR/I , but agrees for temporary HD if needed --S/P CRRT , tolerated well , Holding CRRT currently and monitor renal fxn -Renal function stable but patient is volume overloaded but blood pressures borderline low -s/p IV albumin and IV Lasix- no adequate diuresis,HD started , may need terminal makeup operator HD -Avoid Nephrotoxins and IV contrast studies 2. hyperkalemia : improved 3. H/o CHF 4. Metabolic acidosis , mild , monitor 5. Anemia :s/p Epogen ,transfuse if Hb < 7 pt DNR/I Plan per medicine Attestations Medical Necessity Statement*: per medicine Coding Level of Care Code Acute Code for [facility] Diagnoses Acute kidney injury N17.9
[2022-07-17] MEDS: FUROsemide 10 mg/mL SDV 4mL 40 MG IVP ×2 (12:41→23:39)
--- NOTE | 2022-07-17 14:45 | P.PN_ITS ---
Subjective Subjective: Hb stable today at 7.6, platelet stable at 46K, cr improving 1.4 Medications: Reviewed: Yes Vitals/I&O/Wt Last Vital Signs Temp 98.4 F 07/17/22 13:26 Pulse 80 07/17/22 13:26 Resp 16 07/17/22 13:26 BP 98/60 07/17/22 13:26 Pulse Ox 100 07/17/22 12:30 O2 Del Method Nasal Cannula 07/17/22 12:30 O2 Flow Rate 3 07/17/22 12:30 FiO2 30 07/17/22 07:54 07/16/22 07/17/22 07/17/22 22:59 06:59 14:59 Intake Total 370 / 670 100 / 770 840 / 840 Output Total 50 / 3350 50 / 3400 3300 / 3300 Balance 320 / -2680 50 / -2630 -2460 / -2460 Weight last 48 hrs Weight 94.5 kg Weight 93.9 kg Weight 95.254 kg Weight 95.5 kg Physical Exam Narrative: General: No acute distress, AO x3 HEENT: PERRLA, pupils bilaterally equal and reactive, pallors not present Chest: Normal vesicular breath sounds, no added sounds, equal good air entry bilaterally CVS: S1-S2 regular, no murmurs, no tachycardia, no gallops, no rubs Abdomen: Soft, nontender, no organomegaly, bowel sounds present Neuro: No focal deficits, no facial deformity, AO x3, power 5/5 in all limbs Urinary Catheter Management: Weber: Cath Placed During This Visit: yes Reason for Continuing Indwelling Catheter: Accurate Measurement of Urinary Output in Critically Ill Patients Urinary Catheter Date of Insertion: 07/07/22 Urinary Catheter Time of Insertion: 20:33 Data 07/17/22 10:35 07/17/22 10:35 A&P Assessment and plan (1) Bicytopenia: (2) Acute kidney injury: (3) Restrictive lung disease: (4) Autoimmune hemolytic anemia: Plan (1) Septic shock, shock is now resolved. 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 She has the appearance of an effusion however multiple past thoracentesis attempts have not shown any significant fluid pockets. Likely that radiological appearance is related to hemidiaphragm elevation CT chest small bilateral pleural effusions with compressive atelectasis. no consolidation CT abdomen/pelvis no obvious abdominal source of infection Patient underwent bronchsocopy on last admission which showed edematous bronchia l wall however respiratory cx remained negative. Received Zosyn empiric course for 9 days, abx stopped on 07/16 (2) Acute kidney injury: Urine output appears to be improving cr at 1.4 today Plan to hold HD over the weekend while continuing diuretics (3) COPD (chronic obstructive pulmonary disease): Breathing treatments as needed (4) LRTI (lower respiratory tract infection): completed 9 days os empiric Zosyn, now stopped (5) Heart failure, chronic, preserved ejection fraction : Normal left ventricular size and systolic function, EF 61 %. No ?regional wall motion abnormalities. ?Moderately increased right ventricular size. Mildly decreased ?right ventricular systolic function.Dilated IVC with decreased respiratory variation. metoprolol on hold due to borderline BP currently on lasix 40mg iv q12h, to continue (6) Hyperkalemia: resolved (7) Bicytopenia: Currently stablilized thrombocytopenia at 46K S/p 1 PRBC transfusion on 07/14, Hb stable at 7.6 unclear etiology Resp panel negative may be related to sepsis however no untreated source appears to be evident at this time HIT panel negative elevated T bili, anemia, [place] cells on peripheral smearl, low haptoglobin raise concern for MAHA VS hemoltic uremic syndrome Patient had diarrheal illneess about a month ago which she attributed to laxative use for IBS Planned for transfer to [facility] initially but this fell through as [facility] recommended transfer to tertiary center. Since plt and Hb appear to have stabilized for now, will monitor closely. Transfer may need to be initiated to [facility] should plt start to fall again for need for plasmapharesis. Dvt ppx: on hold due to thrombocytopenia PUD ppx: protonix Attestations Medical Necessity Statement*: HD today Coding Level of Care Code Acute Code for [facility] Diagnoses Bicytopenia D75.89 Acute kidney injury N17.9 Restrictive lung disease J98.4 Autoimmune hemolytic anemia D59.10
[2022-07-17] MEDS: potassium chloride ER 20 mEq Tablet 40 MEQ PO (15:27)
--- NOTE | 2022-07-17 18:18 | PC.NURSE ---
Shift Note Frequent safety and comfort rounds throughout shift. Orders and/or nursing care completed as indicated. Patient monitored for response to intervention and treatment(s). Education provided includes fall risk, nutrition, oxygen education, physical therapy, turning to prevent pressure injuries, all medications given; including verbal consent for albumen with signed consent on file, desired blood pressure parameters, dialysis, and signs and symptoms to report. Patient and/or site safety representative/ family at bedside verbalized understanding of all teachings. Patient had overall uneventful shift. Dialysis performed with no complications reported; 3L removed per dialysis nurse, physical therapy completed without complications, patient reported no pain throughout shift and is currently sitting in recliner at bedside.
--- NOTE | 2022-07-17 23:52 | PC.NURSE ---
IVP lasix ordered, Pt last K+ was 3.2 at 1030AM 07/17/22. One time order of 40 meq K+ given during dayhift. No labs drawn post PO K+. Dr. Morgan notified. told this nurse to continue to give IVP lasix and order BMP for 4 AM.
[2022-07-18] VITALS (24 sets, daily range): BP systolic 94–127; BP diastolic 31–80; PULSE 80; RESP 15–45; TEMP 36.5–36.8; O2SAT 91–100
[2022-07-18] MEDS: albumin 25 G/100 ML BAG 60 G IV ×3 (03:46→19:24)
[2022-07-18 05:43] LABS: Platelet Count 60 10^3/cmm (130-400); Red Blood Count 2.65 10^6/uL (4.1-5.3)
[2022-07-18 06:00] LABS: Alanine Aminotransferase 6 U/L (0-33); Albumin Level 5.2 g/dL (3.5-5.2); Alkaline Phosphatase 65 U/L (35-105); Anion Gap 16.2 (5-19); Aspartate Amino Transferase 16 U/L (0-32); Blood Urea Nitrogen 15 mg/dL (8-23); Calcium 9.4 mg/dL (8.5-10.5); Carbon Dioxide 26 mmol/L (22-29); Chloride 99 mmol/L (98-107); Glucose 88 mg/dL (65-115); Osmolality Calculated 284 mOsm/kg (285-295); Potassium 4.2 mmol/L (3.5-5.1); Sodium 137 mmol/L (136-145); Total Bilirubin 1.5 mg/dL (0.15-1.2); Total Protein 7.2 g/dL (6.6-8.7)
--- NOTE | 2022-07-18 07:43 | PM.PN ---
Subjective Subjective: s/p HD yesterday no new complaints Medications: Reviewed: Yes Vitals/I&O/Wt Last Vital Signs Temp 97.9 F 07/17/22 16:00 Pulse 80 07/18/22 06:00 Resp 16 07/18/22 04:00 BP 94/31 07/18/22 04:00 Pulse Ox 91 07/18/22 04:00 O2 Del Method Nasal Cannula 07/17/22 16:00 O2 Flow Rate 3 07/17/22 12:30 FiO2 30 07/17/22 07:54 07/17/22 07/18/22 07/18/22 22:59 06:59 14:59 Intake Total 322 / 1162 460 / 1622 Output Total 50 / 3350 Balance 272 / -2188 460 / -1728 Weight last 48 hrs Weight 94.5 kg Weight 93.9 kg Physical Exam Narrative: pt awake , alert HEENT PEERLA S1 S2 RRR Lungs clearbil per report + LE edema Urinary Catheter Management: Weber: Cath Placed During This Visit: yes Reason for Continuing Indwelling Catheter: Accurate Measurement of Urinary Output in Critically Ill Patients Urinary Catheter Date of Insertion: 07/07/22 Urinary Catheter Time of Insertion: 20:33 Data 07/18/22 04:44 07/18/22 04:44 A&P Assessment and plan (1) Acute kidney injury: 1. Acute on CKD 3 : Cr baseline mid 1 range. Now presents with ANI with Cr 3.1 associated with Hyperkalemia and volume overload. ANI likely - oLiguric ,pt DNR/I , but agrees for temporary HD if needed -Status post CRRT when blood pressures were low and transition to HD for volume overload -Status post HD x3 days-holding now and assess renal function and diuresis. -If patient cannot have adequate diuresis will discuss long-term HD with patient and family -Avoid Nephrotoxins and IV contrast studies 2. hyperkalemia : improved 3. H/o CHF 4. Metabolic acidosis , mild , monitor 5. Anemia :s/p Epogen ,transfuse if Hb < 7 pt DNR/I Plan per medicine Attestations Medical Necessity Statement*: per medicine Coding Level of Care Code Acute Code for [facility] Diagnoses Acute kidney injury N17.9
[2022-07-18] MEDS: pantoprazole DR 40 mg Tablet PO (08:06)
[2022-07-18] MEDS: sennosides-docusate Tablet 1 TAB PO ×2 (08:06→17:11)
[2022-07-18] MEDS: midodrine 5 mg TABLET 10 MG PO ×3 (08:06→21:40)
[2022-07-18] MEDS: polyethylene glycol 3350 Pkt 17 gm PO (08:06)
--- NOTE | 2022-07-18 08:18 | P.PN_ITS ---
Subjective Subjective: Creatinine at 2.4 today. Received HD yesterday. Currently feels much improved. Sitting in a chair in bedside. Lower extremity edema is improving. No dyspnea. Repeating labs this morning as hemoglobin reported to be 20 which does not seem to be possible after hemoglobin of 7.6 yesterday. Will reassess after repeat CBC this morning. Medications: Reviewed: Yes Vitals/I&O/Wt Last Vital Signs Temp 97.9 F 07/17/22 16:00 Pulse 80 07/18/22 08:06 Resp 22 H 07/18/22 08:06 BP 94/31 07/18/22 04:00 Pulse Ox 93 07/18/22 08:06 O2 Del Method Nasal Cannula 07/18/22 08:06 O2 Flow Rate 3 07/18/22 08:06 FiO2 30 07/17/22 07:54 07/17/22 07/18/22 07/18/22 22:59 06:59 14:59 Intake Total 322 / 1162 460 / 1622 Output Total 50 / 3350 Balance 272 / -2188 460 / -1728 Weight last 48 hrs Weight 94.5 kg Weight 93.9 kg Physical Exam Narrative: General: No acute distress, AO x3 HEENT: PERRLA, pupils bilaterally equal and reactive, pallors not present Chest: Normal vesicular breath sounds, no added sounds, equal good air entry bilaterally CVS: S1-S2 regular, no murmurs, no tachycardia, no gallops, no rubs Abdomen: Soft, nontender, no organomegaly, bowel sounds present Neuro: No focal deficits, no facial deformity, AO x3, power 5/5 in all limbs Urinary Catheter Management: Weber: Cath Placed During This Visit: yes Reason for Continuing Indwelling Catheter: Accurate Measurement of Urinary Output in Critically Ill Patients Urinary Catheter Date of Insertion: 07/07/22 Urinary Catheter Time of Insertion: 20:33 Data 07/18/22 04:44 07/18/22 04:44 A&P Assessment and plan (1) Bicytopenia: (2) Acute kidney injury: (3) Restrictive lung disease: (4) Autoimmune hemolytic anemia: Plan (1) Septic shock, shock is now resolved. 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 She has the appearance of an effusion however multiple past thoracentesis attempts have not shown any significant fluid po ckets. Likely that radiological appearance is related to hemidiaphragm elevation CT chest small bilateral pleural effusions with compressive atelectasis. no consolidation CT abdomen/pelvis no obvious abdominal source of infection Patient underwent bronchsocopy on last admission which showed edematous bronchial wall however respiratory cx remained negative. Received Zosyn empiric course for 9 days, abx stopped on 07/16 Currently doing well off antibiotics (2) Acute kidney injury: Urine output appears to be improving cr at 1.4 today Plan to hold HD over the weekend while continuing diuretics (3) COPD (chronic obstructive pulmonary disease): Breathing treatments as needed (4) LRTI (lower respiratory tract infection): completed 9 days os empiric Zosyn, now stopped (5) Heart failure, chronic, preserved ejection fraction : Normal left ventricular size and systolic function, EF 61 %. No ?regional wall motion abnormalities. ?Moderately increased right ventricular size. Mildly decreased ?right ventricular systolic function.Dilated IVC with decreased respiratory variation. metoprolol on hold due to borderline BP currently on lasix 40mg iv q12h, to continue (6) Hyperkalemia: resolved (7) Bicytopenia: Currently stablilized thrombocytopenia at 46K S/p 1 PRBC transfusion on 07/14, Hb stable at 7.6 unclear etiology Resp panel negative may be related to sepsis however no untreated source appears to be evident at this time HIT panel negative elevated T bili, anemia, [place] cells on peripheral smearl, low haptoglobin raise concern for MAHA VS hemoltic uremic syndrome Patient had diarrheal illneess about a month ago which she attributed to laxative use for IBS Planned for transfer to [facility] initially but this fell through as [facility] recommended transfer to tertiary center. Since plt and Hb appear to have stabilized for now, will monitor closely. Transfer may need to be initiated to [facility] should plt start to fall again for need for plasmapharesis. Repeating labs as a hemoglobin of 20 does not seem to be possible. Dvt ppx: on hold due to thrombocytopenia PUD ppx: protonix Attestations Medical Necessity Statement*: Holding dialysis over the weekend, closely monitor kidney function and urine output off dialysis. Repeat hemoglobin and platelets. Coding Level of Care Code Acute Code for [facility] Diagnoses Bicytopenia D75.89 Acute kidney injury N17.9 Restrictive lung disease J98.4 Autoimmune hemolytic anemia D59.10
[2022-07-18 10:34] LABS: Absolute Eosinophils 0.1 10^3/cmm (0.0-0.7); Band Neutrophils Absolute 0.2 10^3/cmm (0.0-1.2); Eosinophils 2 %; Lymphocytes 32 %; Monocytes Absolute 0.3 10^3/cmm (0.1-0.6); Segmented Neutrophils 57 %; Total Cells Counted 100 (0-100)
[2022-07-18 10:35] LABS: Anisocytosis 1+; Macrocytosis Trace; Poikilocytosis 1+; Smudge Cells 1+
[2022-07-18 10:36] LABS: Absolute Neutrophil 3.2 10^3/cmm (1.4-6.5); Platelet Estimate Decreased (Normal)
[2022-07-18 10:45] LABS: Lymphocytes Absolute 1.7 10^3/cmm (1.2-3.4)
[2022-07-18] MEDS: FUROsemide 10 mg/mL SDV 4mL 40 MG IVP ×2 (11:05→22:47)
[2022-07-18 12:15] LABS: Basophils # 0.1 10^3/uL (0.0-0.1); Basophils % 1.1 %; Eosinophils # 0.2 10^3/uL (0.0-0.8); Eosinophils % 3.2 %; Lymphocytes # 1.2 10^3/uL (0.8-4.8); Lymphocytes % 21.9 %; Monocytes # 0.7 10^3/uL (0.2-0.9); Monocytes % 13.8 %; Neutrophils # 3.15 10^3/uL (1.8-7.7); Neutrophils % 59.6 %; Nucleated Red Blood Cells # 0.1 /100WBC; Nucleated Red Blood Cells % 1.9 %
[2022-07-18 12:30] LABS: Hematocrit 26.2 % (37.0-47.0); Hemoglobin 7.6 g/dL (11.5-15.3); Mean Corpuscular Hemoglobin 28.7 pg (28.0-34.0); Mean Corpuscular Volume 98.9 fl (81-99); Red Cell Distribution Width 21.6 % (12.1-15.1); White Blood Count 5.3 10^3/uL (4.0-10.0)
--- NOTE | 2022-07-18 15:17 | PC.NURSE ---
Patient resting in bed currently and has bee OOBTC most of shift. Patient reports feeling dizzy when getting OOB. BP soft with remaining VSS on nasal canula. No needs at this time. No c/o pain or discomfort, room clean and clutter free with call light within reach. Patient has had increased SOB throughout shift with oxygen saturation adequate. Will continue to monitor.
[2022-07-19] VITALS (17 sets, daily range): BP systolic 95–121; BP diastolic 52–80; PULSE 77–81; RESP 16–36; TEMP 36.5–36.8; O2SAT 91–100
[2022-07-19] MEDS: albumin 25 G/100 ML BAG 60 G IV ×3 (03:03→18:53)
--- NOTE | 2022-07-19 10:11 | P.PN_ITS ---
Subjective Subjective: c/o SOB Medications: Reviewed: Yes Vitals/I&O/Wt Last Vital Signs Temp 97.7 F 07/19/22 04:00 Pulse 80 07/19/22 09:00 Resp 36 H 07/19/22 09:00 BP 112/58 07/19/22 09:00 Pulse Ox 97 07/19/22 09:00 O2 Del Method Nasal Cannula 07/19/22 09:00 O2 Flow Rate 2 07/19/22 09:00 FiO2 30 07/17/22 07:54 07/18/22 07/19/22 07/19/22 22:59 06:59 14:59 Intake Total 300 / 840 100 / 940 Output Total 70 / 70 0 / 70 Balance 230 / 770 100 / 870 Weight last 48 hrs Weight 94.5 kg Physical Exam Narrative: pt awake , alert HEENT PEERLA S1 S2 RRR Lungs clearbil per report + LE edema Urinary Catheter Management: Weber: Cath Placed During This Visit: yes Reason for Continuing Indwelling Catheter: Accurate Measurement of Urinary Output in Critically Ill Patients Urinary Catheter Date of Insertion: 07/07/22 Urinary Catheter Time of Insertion: 20:33 Data 07/18/22 04:44 07/18/22 04:44 A&P Assessment and plan (1) Acute kidney injury: 1. Acute on CKD 3 : Cr baseline mid 1 range. Now presents with ANI with Cr 3.1 associated with Hyperkalemia and volume overload. - oLiguric ,pt DNR/I , but agrees for temporary HD if needed -Status post CRRT when blood pressures were low and transitioned to HD for volume overload -Status post HD x3 days-holding now and assess renal function and diuresis. -If patient do not have adequate diuresis will discuss long-term HD with patient and family -Avoid Nephrotoxins and IV contrast studies 2. hyperkalemia : improved 3. H/o CHF 4. Metabolic acidosis , mild , monitor 5. Anemia :s/p Epogen ,transfuse if Hb < 7 pt DNR/I Plan per medicine Attestations Medical Necessity Statement*: per medicine Coding Level of Care Code Acute Code for [facility] F[facility] Diagnoses Acute kidney injury N17.9
[2022-07-19] MEDS: pantoprazole DR 40 mg Tablet PO (10:44)
[2022-07-19] MEDS: midodrine 5 mg TABLET 10 MG PO ×3 (10:44→20:31)
[2022-07-19] MEDS: polyethylene glycol 3350 Pkt 17 gm PO (10:45)
[2022-07-19] MEDS: sennosides-docusate Tablet 1 TAB PO ×2 (10:45→18:19)
[2022-07-19 11:28] LABS: Basophils # 0.1 10^3/uL (0.0-0.1); Basophils % 1.4 %; Eosinophils # 0.2 10^3/uL (0.0-0.8); Eosinophils % 4.3 %; Hematocrit 25.7 % (37.0-47.0); Hemoglobin 7.5 g/dL (11.5-15.3); Lymphocytes % 19.2 %; Mean Corpuscular HGB Conc 29.2 g/dL (30.0-36.0); Mean Corpuscular Hemoglobin 28.8 pg (28.0-34.0); Mean Corpuscular Volume 98.8 fl (81-99); Monocytes # 0.7 10^3/uL (0.2-0.9); Neutrophils # 3.13 10^3/uL (1.8-7.7); Neutrophils % 60.7 %; Nucleated Red Blood Cells # 0.1 /100WBC; Nucleated Red Blood Cells % 1.7 %; Platelet Count 88 10^3/cmm (130-400); Red Cell Distribution Width 22.1 % (12.1-15.1); White Blood Count 5.2 10^3/uL (4.0-10.0)
[2022-07-19 11:54] LABS: Alanine Aminotransferase 8 U/L (0-33); Albumin Level 5.3 g/dL (3.5-5.2); Alkaline Phosphatase 69 U/L (35-105); Anion Gap 16.3 (5-19); Aspartate Amino Transferase 18 U/L (0-32); Blood Urea Nitrogen 25 mg/dL (8-23); Calcium 9.7 mg/dL (8.5-10.5); Carbon Dioxide 26 mmol/L (22-29); Chloride 96 mmol/L (98-107); Globulin 2.1 g/dL (1.3-4.6); Glucose 131 mg/dL (65-115); Osmolality Calculated 284 mOsm/kg (285-295); Potassium 4.3 mmol/L (3.5-5.1); Sodium 134 mmol/L (136-145); Total Bilirubin 1.7 mg/dL (0.15-1.2); Total Protein 7.4 g/dL (6.6-8.7)
[2022-07-19] MEDS: FUROsemide 10 mg/mL SDV 4mL 40 MG IVP (12:10)
--- NOTE | 2022-07-19 13:14 | PM.PN ---
Subjective Subjective: No acute interim events. Patient currently feeling well. Platelet count is improving to 88,000 today. Creatinine up to 3.4. Patient has been anuric, 70 cc output. Medications: Reviewed: Yes Vitals/I&O/Wt Last Vital Signs Temp 98.1 F 07/19/22 10:00 Pulse 80 07/19/22 12:00 Resp 27 H 07/19/22 12:00 BP 115/65 07/19/22 12:00 Pulse Ox 93 07/19/22 12:00 O2 Del Method Room Air 07/19/22 12:00 O2 Flow Rate 2 07/19/22 09:00 FiO2 30 07/17/22 07:54 07/18/22 07/19/22 07/19/22 22:59 06:59 14:59 Intake Total 300 / 840 100 / 940 240 / 240 Output Total 70 / 70 0 / 70 Balance 230 / 770 100 / 870 240 / 240 Weight last 48 hrs Weight 94.5 kg Physical Exam Narrative: General: No acute distress, AO x3, in better spirits today HEENT: PERRLA, pupils bilaterally equal and reactive, pallors not present Chest: Normal vesicular breath sounds, no added sounds, equal good air entry bilaterally CVS: S1-S2 regular, no murmurs, no tachycardia, no gallops, no rubs Abdomen: Soft, nontender, no organomegaly, bowel sounds present Neuro: No focal deficits, no facial deformity, AO x3, power 5/5 in all limbs Extremities: lower extremity edema,improved [facility] admission Urinary Catheter Management: Weber: Cath Placed During This Visit: yes Reason for Continuing Indwelling Catheter: Accurate Measurement of Urinary Output in Critically Ill Patients Urinary Catheter Date of Insertion: 07/07/22 Urinary Catheter Time of Insertion: 20:33 Data 07/19/22 11:15 07/19/22 11:15 A&P Assessment and plan (1) Bicytopenia: (2) Acute kidney injury: (3) Restrictive lung disease: (4) Autoimmune hemolytic anemia: Plan (1) Septic shock, shock is now resolved. 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 She has the appearance of an effusion however multiple past thoracentesis attempts have not shown any significant fluid pockets. Likely that radiological appearance is related to hemidiaphragm elevation. CT chest small bilateral pleural effusions with compressive atelectasis. no consolidation CT abdomen/pelvis no obvious abdominal source of infection Patient underwent bronchsocopy on last admission which showed edematous bronchial wall however respiratory cx remained negative. Received Zosyn empiric course for 9 days, abx stopped on 07/16 Currently doing well off antibiotics (2) Acute kidney injury: She is anuric. urine output ~ 70 cc received HD on Wed and wednesday Cr back up to 3.4 Given persisting anuria, decision made to transition patient to outpatient HD. Surgery consult for tunneled cath placement Appreciate renal recommendations (3) Bicytopenia, suspected MAHA vs HUS: Currently improving thrombocytopenia at 88K S/p 1 PRBC transfusion on 07/14, Hb stable at 7.5 unclear etiology unable to obatin FOBT Resp panel negative may be related to sepsis however no untreated source appears to be evident at this time HIT panel negative elevated T bili, anemia, [place] cells on peripheral smearl, spherocytes, low haptoglobin raise concern for MAHA VS hemolytic uremic syndrome. Peripheral smear was discussed with Dr. Gross. Pending ADAMTS 13 testing Patient had diarrheal illness about a month ago which she attributed to laxative use for IBS Planned for transfer to [facility] initially but this fell through as [facility] recommended transfer to tertiary center. Since plt and Hb appear to have stabilized for now, we are monitoring closely. Transfer may need to be initiated to [facility] should plt start to fall again for need for plasmapharesis. will need outpatient hematology follow up (4) LRTI (lower respiratory tract infection): completed 9 days os empiric Zosyn, now stopped (5) Heart failure, chronic, preserved ejection fraction : Normal left ventricular size and systolic function, EF 61 %. No ?regional wall motion abnormalities. ?Moderately increased right ventricular size. Mildly decreased ?right ventricular systolic function.Dilated IVC with decreased respiratory variation. metoprolol on hold due to borderline BP Midodrine 10 mg TID added with good response. currently on lasix 40mg iv q12h, to continue per renal (6) Hyperkalemia: resolved Dvt ppx: on hold due to thrombocytopenia , planned tunneled cath PUD ppx: protonix Attestations Medical Necessity Statement*: transfer to Med/surg floor today Coding Level of Care Code Acute Code for [facility] Diagnoses Bicytopenia D75.89 Acute kidney injury N17.9 Restrictive lung disease J98.4 Autoimmune hemolytic anemia D59.10
[2022-07-19] MEDS: artificial tears Op Soln 15 mL Btl 1 DROP EYE-BOTH (18:53)
[2022-07-20] VITALS (10 sets, daily range): BP systolic 98–111; BP diastolic 54–68; PULSE 79–83; RESP 16–26; TEMP 36.1–37; O2SAT 90–98
[2022-07-20] MEDS: FUROsemide 10 mg/mL SDV 4mL 40 MG IVP ×2 (00:04→16:26)
[2022-07-20] MEDS: albumin 25 G/100 ML BAG 60 G IV ×3 (04:09→22:14)
[2022-07-20 06:12] LABS: Basophils # 0.1 10^3/uL (0.0-0.1); Basophils % 1.4 %; Eosinophils # 0.2 10^3/uL (0.0-0.8); Eosinophils % 3.3 %; Hemoglobin 7.3 g/dL (11.5-15.3); Lymphocytes % 19.3 %; Mean Corpuscular HGB Conc 29.2 g/dL (30.0-36.0); Mean Corpuscular Hemoglobin 28.5 pg (28.0-34.0); Mean Corpuscular Volume 97.7 fl (81-99); Mean Platelet Volume 13.4 fL (7.4-10.4); Monocytes # 0.9 10^3/uL (0.2-0.9); Monocytes % 18.5 %; Neutrophils # 2.81 10^3/uL (1.8-7.7); Neutrophils % 57.1 %; Nucleated Red Blood Cells # 0.1 /100WBC; Platelet Count 83 10^3/cmm (130-400); Red Blood Count 2.56 10^6/uL (4.1-5.3); Red Cell Distribution Width 21.6 % (12.1-15.1); White Blood Count 4.9 10^3/uL (4.0-10.0)
[2022-07-20 06:14] LABS: Alanine Aminotransferase 6 U/L (0-33); Albumin Level 5.5 g/dL (3.5-5.2); Alkaline Phosphatase 66 U/L (35-105); Anion Gap 18.5 (5-19); Aspartate Amino Transferase 15 U/L (0-32); Blood Urea Nitrogen 32 mg/dL (8-23); Calcium 9.9 mg/dL (8.5-10.5); Carbon Dioxide 25 mmol/L (22-29); Chloride 96 mmol/L (98-107); Glucose 90 mg/dL (65-115); Osmolality Calculated 286 mOsm/kg (285-295); Potassium 4.5 mmol/L (3.5-5.1); Sodium 135 mmol/L (136-145); Total Bilirubin 1.6 mg/dL (0.15-1.2); Total Protein 7.5 g/dL (6.6-8.7)
--- NOTE | 2022-07-20 10:03 | PC.SOCIAL ---
IMM Update pg 2 of IMM updated and reviewed w/ patient. Copy provided and Copy in chart dated, and initialed.
--- NOTE | 2022-07-20 10:16 | PC.NURSE ---
pt in dialysis
--- NOTE | 2022-07-20 11:43 | PC.OT ---
OT TREATMENT ATTEMPTED. PATIENT OUT OF ROOM TO DIALYSIS PER NURSING. TREATMENT TO BE ATTEMPTED AGAIN AT A LATER TIME.
--- NOTE | 2022-07-20 13:35 | PC.OT ---
Second attempt today for OT tx. Pt remains out of her room in dialysis. Will attempt again later if possible. Otherwise will resume OT tx in a.m.
[2022-07-20] MEDS: heparin, porcine 1,000 unit/mL INJ 10 mL 10000 UNIT INTRACATH (15:14)
[2022-07-20] MEDS: heparin, porcine 1,000 unit/mL INJ 10 mL 1000 UNIT IV (15:16)
--- NOTE | 2022-07-20 15:16 | PM.PN ---
Subjective Subjective: Patient was seen and examined this morning, platelet count is 83T, hemoglobin 7.3, documented urine output,150 CC, patient underwent routine hemodialysis today.She is due for tunnel catheter placement tomorrow. Medications: Reviewed: Yes Medication Review Details: Generic Name Dose Route Start Last Admin Trade Name Freq PRN Reason Stop Dose Admin Artificial Tears 1 drop 07/19/22 18:14 07/19/22 18:53 Artificial Tears Op Soln 15 Ml Btl EYE-BOTH 1 drop Q4H PRN Administration DRY EYE(S) Benzonatate 200 mg 07/11/22 14:31 07/15/22 23:13 Benzonatate 100 Mg Capsule PO 200 mg TID PRN Administration COUGH Furosemide 40 mg 07/13/22 11:45 07/20/22 00:04 Furosemide 10 Mg /Ml Sdv 4ml IVP 40 mg Q12H KACEY Administration Heparin Sodium (Po rcine) 500 unit 07/09/22 09:07 07/11/22 00:46 Heparin Lock Flu sh 500 Unit/5 Ml S yringe IV 500 unit PRN PRN Administration At CRRT disconnec t Albumin Human 25 g in 100 mls @ 60 mls/hr 07/13/22 11:45 07/20/22 05:41 Albumin IV Infused Q8H KACEY Infusion Midodrine 10 mg 07/16/22 15:00 07/19/22 20:31 Midodrine 5 Mg T ablet PO 10 mg TID KACEY Administration Ondansetron HCl 4 mg 07/07/22 22:37 07/15/22 23:13 Ondansetron 2 Mg /Ml Sdv 2 Ml IVP 4 mg Q8H PRN Administration vomiting, or N/V if npo Pantoprazole Sodiu m 40 mg 07/14/22 09:00 07/19/22 10:[address] 40 Mg Tablet PO 40 mg DAILY KACEY Administration Polyethylene Glyco l 17 gm 07/14/22 09:00 07/19/22 10:45 Polyethylene Gly col 3350 Pkt 17 Gm PO 17 gm DAILY KACEY Administration Senna/Docusate Sod ium 1 tab 07/14/22 09:00 07/19/22 18:19 Sennosides-Docus ate Tablet PO 1 tab BID KACEY Administration Vitals/I&O/Wt Last Vital Signs Temp 98.6 F 07/20/22 13:59 Pulse 82 07/20/22 13:59 Resp 16 07/20/22 13:59 BP 111/62 07/20/22 13:59 Pulse Ox 90 07/20/22 12:00 O2 Del Method Nasal Cannula 07/20/22 12:00 O2 Flow Rate 2 07/20/22 07:33 FiO2 30 07/19/22 16:56 07/20/22 07/20/22 07/20/22 06:59 14:59 22:59 Intake Total 100 / 540 300 / 300 Output Total 50 / 150 3300 / 3300 Balance 50 / 390 -3000 / -3000 Weight last 48 hrs Weight 87.5 kg Physical Exam Const: COMMON NORMALS: patient oriented x3 HENMT: COMMON NORMALS: normocephalic and atraumatic HEAD & SCALP: normocephalic and atraumatic Resp: COMMON NORMALS: normal respiratory effort, No retractions, No use of accessory muscles and clear to auscultation bilaterally EFFORT & INSPECTION: Yes symmetric chest movement AUSCULTATION: clear to auscultation bilaterally Cardio: COMMON NORMALS: regular rate, regular rhythm, S1 normal heart sound present, S2 normal heart sound present, No gallops present (Cardio), No murmurs present (Cardio), No rub (Cardio) and Peripheral pulses 2+ throughout RATE: regular rate RHYTHM: regular rhythm HEART SOUNDS: S1 normal heart sound present and S2 normal heart sound present PERIPHERAL PULSES: Peripheral pulses 2+ throughout GI: COMMON NORMALS: Normal to inspection, nondistended, normoactive bowel sounds present, Soft to palpation, non-tender, No hepatosplenomegaly present and no masses AUSCULTATION: Yes normoactive bowel sounds PALPATION: Yes Soft to palpation and Yes No hepatosplenomegaly present RECTAL EXAM: deferred Extremity: COMMON NORMALS: no clubbing, cyanosis or edema and no pedal edema Neuro: COMMON NORMALS: patient oriented x3 Urinary Catheter Management: Weber: Cath Placed During This Visit: yes Reason for Continuing Indwelling Catheter: Other Urinary Catheter Date of Insertion: 07/07/22 Urinary Catheter Time of Insertion: 20:33 Data 07/20/22 05:25 07/20/22 05:25 A&P Assessment and plan (1) Bicytopenia: (2) Acute kidney injury: (3) Restrictive lung disease: (4) Autoimmune hemolytic anemia: Plan (1) Septic shock, shock is now resolved. 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 She has the appearance of an effusion however multiple past thoracentesis attempts have not shown any significant fluid pockets. Likely that radiological appearance is related to hemidiaphragm elevation. CT chest small bilateral pleural effusions with compressive atelectasis. no consolidation CT abdomen/pelvis no obvious abdominal source of infection Patient underwent bronchsocopy on last admission which showed edematous bronchial wall however respiratory cx remained negative. Received Zosyn empiric course for 9 days, abx stopped on 07/16 Currently doing well off antibiotics (2) Acute kidney injury: She is anuric. urine output ~ 70 cc received HD on Wed and wednesday Cr back up to 3.4 Given persisting anuria, decision made to transition patient to outpatient HD. Surgery consult for tunneled cath placement Appreciate renal recommendations (3) Bicytopenia, suspected MAHA vs HUS: Currently improving thrombocytopenia at 88K S/p 1 PRBC transfusion on 07/14, Hb stable at 7.5 unclear etiology unable to obatin FOBT Resp panel negative may be related to sepsis however no untreated source appears to be evident at this time HIT panel negative elevated T bili, anemia, [place] cells on peripheral smearl, spherocytes, low haptoglobin raise concern for MAHA VS hemolytic uremic syndrome. Peripheral smear was discussed with Dr. Gross. Pending ADAMTS 13 testing Patient had diarrheal illness about a month ago which she attributed to laxative use for IBS Planned for transfer to [facility] initially but this fell through as [facility] recommended transfer to tertiary center. Since plt and Hb appear to have stabilized for now, we are monitoring closely. Transfer may need to be initiated to [facility] should plt start to fall again for need for plasmapharesis. will need outpatient hematology follow up (4) LRTI (lower respiratory tract infection): completed 9 days os empiric Zosyn, now stopped (5) Heart failure, chronic, preserved ejection fraction : Normal left ventricular size and systolic function, EF 61 %. No ?regional wall motion abnormalities. ?Moderately increased right ventricular size. Mildly decreased ?right ventricular systolic function.Dilated IVC with decreased respiratory variation. metoprolol on hold due to borderline BP Midodrine 10 mg TID added with good response. currently on lasix 40mg iv q12h, to continue per renal (6) Hyperkalemia: resolved Dvt ppx: on hold due to thrombocytopenia , planned tunneled cath PUD ppx: protonix Attestations Medical Necessity Statement*: Needs to be in hospital for continued hemodialysis. Coding Level of Care Code Acute Code for [facility] Diagnoses Bicytopenia D75.89 Acute kidney injury N17.9 Restrictive lung disease J98.4 Autoimmune hemolytic anemia D59.10
[2022-07-20] MEDS: midodrine 5 mg TABLET 10 MG PO ×2 (16:26→22:13)
[2022-07-20] MEDS: sennosides-docusate Tablet 1 TAB PO (18:29)
--- NOTE | 2022-07-20 20:51 | P.PN_ITS ---
Subjective Subjective: s.p HD yesterday s/p tunnelled catheter placement today Medications: Reviewed: Yes Vitals/I&O/Wt Last Vital Signs Temp 98.1 F 07/20/22 16:00 Pulse 79 07/20/22 16:00 Resp 18 07/20/22 16:00 BP 109/68 07/20/22 16:00 Pulse Ox 96 07/20/22 16:00 O2 Del Method Nasal Cannula 07/20/22 16:00 O2 Flow Rate 2 07/20/22 07:33 FiO2 30 07/19/22 16:56 07/20/22 07/20/22 07/20/22 06:59 14:59 22:59 Intake Total 100 / 540 300 / 300 100 / 400 Output Total 50 / 150 3300 / 3300 Balance 50 / 390 -3000 / -3000 100 / -2900 Weight last 48 hrs Weight 87.5 kg Physical Exam Narrative: pt awake , alert HEENT PEERLA S1 S2 RRR Lungs clearbil per report + LE edema Urinary Catheter Management: Weber: Cath Placed During This Visit: yes Reason for Continuing Indwelling Catheter: Accurate Measurement of Urinary Output in Critically Ill Patients Urinary Catheter Date of Insertion: 07/07/22 Urinary Catheter Time of Insertion: 20:33 Data 07/20/22 05:25 07/20/22 05:25 A&P Assessment and plan (1) Acute kidney injury: 1. Acute on CKD 3 : Cr baseline mid 1 range. Now presents with ANI with Cr 3.1 associated with Hyperkalemia and volume overload. 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 hyperkalemia : improved 3. H/o CHF 4. Metabolic acidosis , mild , monitor 5. Anemia :s/p Epogen ,transfuse if Hb < 7 pt DNR/I Plan per medicine Attestations Medical Necessity Statement*: per medicine Coding Level of Care Code Acute Code for [facility] Diagnoses Acute kidney injury N17.9
[2022-07-21] VITALS (21 sets, daily range): BP systolic 96–127; BP diastolic 44–84; PULSE 0–97; RESP 14–29; TEMP 36.1–37.2; O2SAT 91–100
--- NOTE | 2022-07-21 | SC_ITS ---
WS: [id number] INTRAOPERATIVE TECHNIQUE: 3 Spot fluoroscopic images for intraoperative purposes. FLUOROSCOPY TIME: 17.1 seconds CLINICAL INFORMATION: dialysis cath COMPARISON: None. FINDINGS: RIGHT dual-lumen central venous catheter with tips in good position, distal SVC and RIGHT atrium. SC/C-arm FL for CVA [id number] IMPRESSION: Images obtained for intraoperative purposes.
[2022-07-21 05:10] LABS: Basophils # 0.1 10^3/uL (0.0-0.1); Basophils % 1.3 %; Eosinophils # 0.1 10^3/uL (0.0-0.8); Eosinophils % 2.6 %; Hematocrit 24.9 % (37.0-47.0); Hemoglobin 7.3 g/dL (11.5-15.3); Lymphocytes # 0.8 10^3/uL (0.8-4.8); Lymphocytes % 17.3 %; Mean Corpuscular HGB Conc 29.3 g/dL (30.0-36.0); Mean Corpuscular Hemoglobin 28.3 pg (28.0-34.0); Mean Corpuscular Volume 96.5 fl (81-99); Mean Platelet Volume 12.8 fL (7.4-10.4); Monocytes # 0.8 10^3/uL (0.2-0.9); Monocytes % 17.6 %; Neutrophils # 2.85 10^3/uL (1.8-7.7); Nucleated Red Blood Cells # 0.1 /100WBC; Nucleated Red Blood Cells % 2.1 %; Platelet Count 84 10^3/cmm (130-400); Red Blood Count 2.58 10^6/uL (4.1-5.3); Red Cell Distribution Width 22.4 % (12.1-15.1); White Blood Count 4.7 10^3/uL (4.0-10.0)
[2022-07-21 05:26] LABS: Alanine Aminotransferase < 5 U/L (0-33); Albumin Level 5.5 g/dL (3.5-5.2); Alkaline Phosphatase 74 U/L (35-105); Anion Gap 18.8 (5-19); Aspartate Amino Transferase 17 U/L (0-32); Blood Urea Nitrogen 22 mg/dL (8-23); Calcium 9.7 mg/dL (8.5-10.5); Carbon Dioxide 25 mmol/L (22-29); Chloride 96 mmol/L (98-107); Globulin 2.1 g/dL (1.3-4.6); Glucose 99 mg/dL (65-115); Osmolality Calculated 285 mOsm/kg (285-295); Potassium 3.8 mmol/L (3.5-5.1); Sodium 136 mmol/L (136-145); Total Bilirubin 1.8 mg/dL (0.15-1.2); Total Protein 7.6 g/dL (6.6-8.7)
[2022-07-21] MEDS: FUROsemide 10 mg/mL SDV 4mL 40 MG IVP ×2 (05:48→15:34)
--- NOTE | 2022-07-21 07:00 | P.PN_ITS ---
Subjective Subjective: Patient seen and examined. Vitals/I&O/Wt Last Vital Signs Temp 98.2 F 07/21/22 06:30 Pulse 80 07/21/22 06:30 Resp 17 07/21/22 06:30 BP 127/84 07/21/22 06:30 Pulse Ox 99 07/21/22 06:30 O2 Del Method Room Air 07/21/22 06:30 O2 Flow Rate 1.5 07/20/22 20:00 FiO2 30 07/21/22 03:29 07/20/22 07/21/22 07/21/22 22:59 06:59 14:59 Intake Total 100 / 400 100 / 500 Output Total 100 / 3400 Balance 100 / -2900 0 / -2900 Weight last 48 hrs Weight 192 lb 14.472 oz Physical Exam Narrative: NAD Urinary Catheter Management: Weber: Cath Placed During This Visit: yes Reason for Continuing Indwelling Catheter: Accurate Measurement of Urinary Output in Critically Ill Patients Urinary Catheter Date of Insertion: 07/07/22 Urinary Catheter Time of Insertion: 20:33 Data 07/21/22 05:00 07/21/22 05:00 A&P Assessment and plan (1) Acute kidney injury: Plan Permacath placement The risks and benefits of the procedure, including but not limited to, bleeding, infection, infection requiring Mediport removal antibiotic therapy and repeat surgery, damage to surrounding structures, scar, numbness, pain, pneumothorax requiring thoracostomy tube, were explained to the patient. He/She is understanding of the risks and wishes to proceed. Attestations Medical Necessity Statement*: Per primary Coding Level of Care Code Acute Code for [facility] Diagnoses Acute kidney injury N17.9
[2022-07-21] MEDS: sodium chloride 0.9% 1,000 ML 30 ML IV (07:03)
[2022-07-21] MEDS: lidocaine-epi 2% 20 mL INJ INJECTION (07:46)
--- NOTE | 2022-07-21 07:56 | ANES.PREANE2 ---
Pre-Anesthetic Assessment Height/Weight: Height 1.65 m Weight 87.5 kg Temp Pulse Resp BP Pulse Ox O2 Del Method O2 Flow Rate 98.2 F 80 17 127/84 99 Room Air 1.5 07/21/22 06:30 07/21/22 06:30 07/21/22 06:30 07/21/22 06:30 07/21/22 06:30 07/21/22 06:30 07/20/22 20:00 FiO2 30 07/21/22 03:29 Operation Date: 07/21/22 07:00 Proposed Procedures p Dialysis Catheter Insertion(Not Applicable) - Moisés Butts DO Familial anesthetic complications: none Was Beta Isidoro taken within 24 hours: Yes Was Clonidine taken within 24 hours: N/A Last intake: Intake Last Liquid Date 07/20/22 Last Liquid Time 22:30 Last Solid Date 07/20/22 Last Solid Time 19:30 Social No alcohol and No tobacco (h/o smoking) Exam alert, oriented x 3 and regular rate & rhythm Airway Submandibular: within normal limits Cervical ROM: within normal limits Mallampati: Class II Dentition: false Pulmonary Chronic Obstructive Pulmonary Disease Supplemental O2, restrictive lung dz CV/HEM Anemia, Hypertension and Peripheral Vascular Disease Pacemaker Chronic Renal Failure Anesthetic Plan ASA status: 3 Anesthesia: Choice Medications/Allergies Home Medications Medication Instructions Recorded Confirmed Last Taken Type eszopiclone 2 mg tablet (Lunesta) 2 mg PO BEDTIME 05/16/19 07/07/22 07/06/22 History hydrocodone 5 mg-acetaminophen 325 1 tab PO BID PRN Pain 05/16/19 07/07/22 07/06/22 History mg tablet lubiprostone 24 mcg capsule 24 mcg PO BID 05/16/19 07/07/22 06/22/22 History (Amitiza) multivitamin 1 tab PO BEDTIME 05/16/19 07/07/22 06/22/22 History ropinirole 2 mg tablet 2 mg PO BEDTIME 10/11/20 07/07/22 06/21/22 History budesonide 160 mcg-glycopyr 9 2 inh inhalation BID 02/13/21 07/07/22 06/22/22 History mcg-formot 4.8 mcg/actuation HFA inhaler (Breztri Aerosphere) sennosides 8.6 mg tablet (senna) See Rx Instructions .Route .COMPLEX 06/18/21 07/07/22 06/22/22 History vit C 250 mg-vit E 90 mg-zinc 40 1 tab PO BID 06/18/21 07/07/22 06/22/22 History mg-copper 1 [id number] capsule (PreserVision AREDS-2) ferrous gluconate 324 mg (38 mg 324 mg PO DAILY 08/01/21 07/07/22 07/06/22 History iron) tablet nystatin 100,000 unit/mL oral 100,000 unit PO BID 08/01/21 07/07/22 10/01/21 History suspension furosemide 40 mg tablet 40 mg PO DAILY 01/19/22 07/07/22 06/22/22 History metoprolol succinate 25 mg 25 mg PO DAILY #90 tabs 03/10/22 07/07/22 06/21/22 Rx tablet,extended release 24 hr guaifenesin 100 mg/5 mL oral 200 mg (10 mL) PO Q4H PRN cough 03/26/22 07/07/22 Unknown Rx liquid (Mucinex Fast-Max Chest #473 mL Congestion) levalbuterol tartrate 45 2 inh inhalation Q6H #15 grams 03/26/22 07/07/22 06/22/22 Rx mcg/actuation aerosol inhaler (Xopenex HFA) lansoprazole 30 mg capsule,delayed 30 mg PO BID #180 caps 03/30/22 07/07/22 07/07/22 Rx release (Prevacid) montelukast 10 mg tablet 10 mg PO DAILY #30 tabs 06/02/22 07/07/22 06/21/22 Rx (Singulair) ipratropium bromide 21 mcg (0.03 2 spray intranasal TID PRN NASAL 06/22/22 07/07/22 Unknown History %) nasal spray DRAINAGE pregabalin 75 mg capsule (Lyrica) 75 mg PO DAILY 06/22/22 07/07/22 07/07/22 History propranolol 20 mg tablet 20 mg PO QAM 06/22/22 07/07/22 06/22/22 History levofloxacin 750 mg tablet 750 mg PO Q48H 14 days #7 tabs 06/27/22 07/07/22 Unknown Rx Allergies Allergy/AdvReac Type Severity Reaction Status Date / Time atropine Allergy Unknown Unknown Verified 07/02/22 11:11 benztropine Allergy Unknown Unknown Verified 07/02/22 11:11 cefadroxil Allergy Unknown Unknown Verified 07/02/22 11:11 cimetidine Allergy Unknown Unknown Verified 07/02/22 11:11 enalapril Allergy Unknown Unknown Verified 07/02/22 11:11 enalaprilat Allergy Unknown Unknown Verified 07/02/22 11:11 gabapentin Allergy Unknown Unknown Verified 07/02/22 11:11 Sulfa (Sulfonamide Allergy Unknown Unknown Verified 07/02/22 11:11 Antibiotics) tramadol Allergy Unknown ADR-Itching Verified 07/02/22 11:11 zolpidem Allergy Unknown Unknown Verified 07/02/22 11:11 albuterol Allergy ALGY-Swell Verified 07/02/22 11:11 Lip/Tongue/Throat Current Medications Generic Name Dose Route Start Last Admin Trade Name Freq PRN Reason Stop Dose Admin Artificial Tears 1 drop 07/19/22 18:14 07/19/22 18:53 Artificial Tears Op Soln 15 Ml Btl EYE-BOTH 1 drop Q4H PRN Administration DRY EYE(S) Benzonatate 200 mg 07/11/22 14:31 07/15/22 23:13 Benzonatate 100 Mg Capsule PO 200 mg TID PRN Administration COUGH Furosemide 40 mg 07/13/22 11:45 07/21/22 05:48 Furosemide 10 Mg/Ml Sdv 4ml IVP 40 mg Q12H KACEY Administration Heparin Sodium (Porcine) 500 unit 07/09/22 09:07 07/11/22 00:46 Heparin Lock Flush 500 Unit/5 Ml Syringe IV 500 unit PRN PRN Administration At CRRT disconnect Albumin Human 25 g in 100 mls @ 60 mls/hr 07/13/22 11:45 07/21/22 00:02 Albumin IV Infused Q8H KACEY Infusion Sodium Chloride 1,000 mls @ 30 mls/hr 07/21/22 06:45 07/21/22 07:03 Sodium Chloride 0.9% IV 07/22/22 06:44 30 mls/hr .Q24H KACEY Administration Midodrine 10 mg 07/16/22 15:00 07/20/22 22:13 Midodrine 5 Mg Tablet PO 10 mg TID KACEY Administration Non-Formulary Medication 30 mg 07/20/22 18:00 07/20/22 18:28 Lansoprazole [Prevacid] PO 30 mg BID KACEY Administration Ondansetron HCl 4 mg 07/07/22 22:37 07/15/22 23:13 Ondansetron 2 Mg/Ml Sdv 2 Ml IVP 4 mg Q8H PRN Administration vomiting, or N/V if npo Pantoprazole Sodium 40 mg 07/14/22 09:00 07/20/22 15:[address] 40 Mg Tablet PO Not Given DAILY KACEY Polyethylene Glycol 17 gm 07/14/22 09:00 07/20/22 15:15 Polyethylene Glycol 3350 Pkt 17 Gm PO Not Given DAILY KACEY Senna/Docusate Sodium 1 tab 07/14/22 09:00 07/20/22 18:29 Sennosides-Docusate Tablet PO 1 tab BID KACEY Administration PFSH Anesthesia Medical History Acute kidney injury superimposed on CKD Acute metabolic encephalopathy Acute respiratory failure with hypoxia and hypercapnia Asthma Atrial fibrillation CAD (coronary artery disease) Dehydration Diastolic heart failure Dysphagia Essential tremor GERD (gastroesophageal reflux disease) HTN (hypertension) Hypokalemia Iron deficiency anemia Left ankle swelling Myoclonus Osteoarthritis Pacemaker Pacemaker syndrome Pleural effusion Pneumonia Sepsis Urinary tract infection Varicose veins of left lower extremity with other complications Surgical History Previous back surgery S/P cardiac pacemaker procedure S/P cataract extraction S/P hysterectomy S/P tubal ligation Family History Father , CA age 44 Myocardial infarction Social History Smoking and tobacco status: never smoked Data Anesthesia 07/21/22 05:00 07/21/22 05:00 Short CBC 07/19/22 07/20/22 07/21/22 Range/Units 11:15 05:25 05:00 WBC 5.2 4.9 4.7 (4.0-10.0) 10^3/uL Hgb 7.5 L 7.3 L 7.3 L (11.5-15.3) g/dL Hct 25.7 L 25.0 L 24.9 L (37.0-47.0) % MCV 98.8 97.7 96.5 (81-99) fl Plt Count 88 L 83 L 84 L (130-400) 10^3/cmm Neut % (Auto) 60.7 57.1 61.0 % Neut # (Auto) 3.13 2.81 2.85 (1.8-7.7) 10^3/uL BMP 07/19/22 07/20/22 07/21/22 11:15 05:25 05:00 Sodium 134 L 135 L 136 Potassium 4.3 4.5 3.8 Chloride 96 L 96 L 96 L Carbon Dioxide 26 25 25 BUN 25 H 32 H 22 Creatinine 3.4 H 4.1 H 3.1 H Glucose 131 H 90 99 Calcium 9.7 9.9 9.7 Liver Function 07/19/22 07/20/22 07/21/22 Range/Units 11:15 05:25 05:00 Total Bilirubin 1.7 H 1.6 H 1.8 H (0.15-1.2) mg/dL AST 18 15 17 (0-32) U/L ALT 8 6 < 5 (0-33) U/L Alkaline Phosphatase 69 66 74 (35-105) U/L Albumin 5.3 H 5.5 H 5.5 H (3.5-5.2) g/dL Cardiac Studies: Echocardiogram 06/22/22 Echocardiogram Limited Views 07/09/22
--- NOTE | 2022-07-21 08:01 | XRR_ITS ---
PROCEDURE INFORMATION: Exam: XR Chest Exam date and time: 07/21/2022 7:39 AM Age: 82 years old Clinical indication: Device placement; Other: Postop permacath placement; Prior surgery; Surgery date: Post-operative (0-2 days) TECHNIQUE: Imaging protocol: Radiologic exam of the chest. Views: 1 view. COMPARISON: [place] [id number] 07/13/2022 3:03 PM FINDINGS: Lungs: Low lung volumes seen. The lungs are otherwise clear No consolidation. Pleural spaces: Right lower lobe opacity consistent with pleural effusion. No pneumothorax. Heart/Mediastinum: Unremarkable. No cardiomegaly. Bones/joints: Unremarkable. Right central line extends into the right atrium. Cardiac device left anterior chest unipolar lead is in good position XR/XR chest 1V portable [id number] IMPRESSION: Low lung volumes No acute findings. Right lower lobe pleural effusion Right central line in the right atrium Cardiac device left anterior chest
[2022-07-21] MEDS: artificial tears Op Soln 15 mL Btl 1 DROP EYE-BOTH ×2 (09:49→18:08)
[2022-07-21] MEDS: sodium chloride 0.9% 1,000 ML 100 ML IV (09:51)
[2022-07-21] MEDS: sennosides-docusate Tablet 1 TAB PO ×2 (09:51→18:08)
[2022-07-21] MEDS: pantoprazole DR 40 mg Tablet PO (09:51)
[2022-07-21] MEDS: midodrine 5 mg TABLET 10 MG PO ×3 (09:51→22:18)
[2022-07-21] MEDS: polyethylene glycol 3350 Pkt 17 gm PO (09:52)
[2022-07-21] MEDS: albumin 25 G/100 ML BAG 60 G IV ×2 (09:52→18:09)
--- NOTE | 2022-07-21 12:53 | P.PN_ITS ---
Subjective Subjective: Patient was seen and examined this morning, she underwent tunneled catheter placement today, tolerated the procedure well. Repeat CBC was ordered this afternoon: To monitor H&H and platelet count: Currently stable at 7.3 and platelet count has went up to: 107. Medications: Reviewed: Yes Medication Review Details: Generic Name Dose Route Start Last Admin Trade Name Freq PRN Reason Stop Dose Admin Artificial Tears 1 drop 07/19/22 18:14 07/21/22 09:49 Artificial Tears Op Soln 15 Ml Btl EYE-BOTH 1 drop Q4H PRN Administration DRY EYE(S) Benzonatate 200 mg 07/11/22 14:31 07/15/22 23:13 Benzonatate 100 Mg Capsule PO 200 mg TID PRN Administration COUGH Furosemide 40 mg 07/13/22 11:45 07/21/22 05:48 Furosemide 10 Mg /Ml Sdv 4ml IVP 40 mg Q12H KACEY Administration Heparin Sodium (Po rcine) 500 unit 07/09/22 09:07 07/11/22 00:46 Heparin Lock Flu sh 500 Unit/5 Ml S yringe IV 500 unit PRN PRN Administration At CRRT disconnec t Albumin Human 25 g in 100 mls @ 60 mls/hr 07/13/22 11:45 07/21/22 12:33 Albumin IV Infused Q8H KACEY Infusion Sodium Chloride 1,000 mls @ 30 ml s/hr 07/21/22 06:45 07/21/22 07:03 Sodium Chloride 0.9% IV 07/22/22 06:44 30 mls/hr .Q24H KACEY Administration Sodium Chloride 1,000 mls @ 100 m ls/hr 07/21/22 07:45 07/21/22 09:51 Sodium Chloride 0.9% IV 07/22/22 07:44 100 mls/hr .Q10H KACEY Administration Midodrine 10 mg 07/16/22 15:00 07/21/22 09:51 Midodrine 5 Mg T ablet PO 10 mg TID KACEY Administration Non-Formulary Medi cation 30 mg 07/20/22 18:00 07/21/22 09:47 Lansoprazole [Pr evacid] PO 30 mg BID KACEY Administration Ondansetron HCl 4 mg 07/07/22 22:37 07/15/22 23:13 Ondansetron 2 Mg /Ml Sdv 2 Ml IVP 4 mg Q8H PRN Administration vomiting, or N/V if npo Pantoprazole Sodiu m 40 mg 07/14/22 09:00 07/21/22 09:[address] 40 Mg Tablet PO 40 mg DAILY KACEY Administration Polyethylene Glyco l 17 gm 07/14/22 09:00 07/21/22 09:52 Polyethylene Gly col 3350 Pkt 17 Gm PO 17 gm DAILY KACEY Administration Senna/Docusate Sod ium 1 tab 07/14/22 09:00 07/21/22 09:51 Sennosides-Docus ate Tablet PO 1 tab BID KACEY Administration Vitals/I&O/Wt Last Vital Signs Temp 97.6 F 07/21/22 09:30 Pulse 75 07/21/22 12:00 Resp 16 07/21/22 12:00 BP 108/63 07/21/22 12:00 Pulse Ox 99 07/21/22 12:00 O2 Del Method Nasal Cannula 07/21/22 12:00 O2 Flow Rate 3 07/21/22 08:50 FiO2 30 07/21/22 03:29 07/20/22 07/21/22 07/21/22 22:59 06:59 14:59 Intake Total 100 / 400 100 / 500 210 / 210 Output Total 100 / 3400 0 / 0 Balance 100 / -2900 0 / -2900 210 / 210 Weight last 48 hrs Weight 87.5 kg Physical Exam Narrative: KATHLEEN HENMT: COMMON NORMALS: normocephalic and atraumatic HEAD & SCALP: normocephalic and atraumatic Resp: COMMON NORMALS: clear to auscultation bilaterally EFFORT & INSPE CTION: Yes symmetric chest movement AUSCULTATION: clear to auscultation bilaterally Cardio: COMMON NORMALS: regular rate, regular rhythm, S1 normal heart sound present, S2 normal heart sound present, No gallops present (Cardio), No murmurs present (Cardio), No rub (Cardio) and Peripheral pulses 2+ throughout RATE: regular rate RHYTHM: regular rhythm HEART SOUNDS: S1 normal heart sound present and S2 normal heart sound present PERIPHERAL PULSES: Peripheral pulses 2+ throughout GI: COMMON NORMALS: Normal to inspection, nondistended, normoactive bowel sounds present, Soft to palpation, non-tender, No hepatosplenomegaly present and no masses AUSCULTATION: Yes normoactive bowel sounds PALPATION: Yes Soft to palpation and Yes No hepatosplenomegaly present RECTAL EXAM: deferred Extremity: COMMON NORMALS: no clubbing, cyanosis or edema and no pedal edema Urinary Catheter Management: Weber: Cath Placed During This Visit: yes Reason for Continuing Indwelling Catheter: Accurate Measurement of Urinary Output in Critically Ill Patients Urinary Catheter Date of Insertion: 07/07/22 Urinary Catheter Time of Insertion: 20:33 Data 07/21/22 14:10 07/21/22 05:00 A&P Assessment and plan (1) Bicytopenia: (2) Acute kidney injury: (3) Restrictive lung disease: (4) Autoimmune hemolytic anemia: Plan (1) Septic shock, shock is now resolved. 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 She has the appearance of an effusion however multip le past thoracentesis attempts have not shown any significant fluid pockets. Likely that radiological appearance is related to hemidiaphragm elevation. CT chest small bilateral pleural effusions with compressive atelectasis. no consolidation CT abdomen/pelvis no obvious abdominal source of infection Patient underwent bronchsocopy on last admission which showed edematous bronchial wall however respiratory cx remained negative. Received Zosyn empiric course for 9 days, abx stopped on 07/16 Currently doing well off antibiotics (2) Acute kidney injury: She is anuric. urine output ~ 70 cc received HD on Wed and wednesday Cr back up to 3.4 Given persisting anuria, decision made to transition patient to outpatient HD. Status post tunnel catheter placement Appreciate renal recommendations (3) Bicytopenia, suspected MAHA vs HUS: Currently improving thrombocytopenia S/p 1 PRBC transfusion on 07/14, Hb stable at 7.5 unclear etiology unable to obatin FOBT Resp panel negative may be related to sepsis however no untreated source appears to be evident at this time HIT panel negative elevated T bili, anemia, [place] cells on peripheral smearl, spherocytes, low haptoglobin raise concern for MAHA VS hemolytic uremic syndrome. Peripheral smear was discussed with Dr. Gross. Pending ADAMTS 13 testing Patient had diarrheal illness about a month ago which she attributed to laxative use for IBS Planned for transfer to [facility] initially but this fell through as Vargas recommended transfer to tertiary center. Since plt and Hb appear to have s tabilized for now, we are monitoring closely. Transfer may need to be initiated to [facility] should plt start to fall again for need for plasmapharesis. will need outpatient hematology follow up (4) LRTI (lower respiratory tract infection): completed 9 days os empiric Zosyn, now stopped (5) Heart failure, chronic, preserved ejection fraction : Normal left ventricular size and systolic function, EF 61 %. No ?regional wall motion abnormalities.?Moderately increased right ventricular size. Mildly decreased ?right ventricular systolic function.Dilated IVC with decreased respiratory variation. metoprolol on hold due to borderline BP. Midodrine 10 mg TID added with good response. currently on lasix 40mg iv q12h, to continue per renal (6) Hyperkalemia: resolved Dvt ppx: on hold due to thrombocytopenia PUD ppx: protonix Attestations Medical Necessity Statement*: Needs to be in hospital for continued hemodialysis. Coding Level of Care Code Acute Code for [facility] Diagnoses Bicytopenia D75.89 Acute kidney injury N17.9 Restrictive lung disease J98.4 Autoimmune hemolytic anemia D59.10
[2022-07-21] MEDS: ondansetron 2 mg/ML SDV 2 mL 4 MG IVP ×3 (12:59→18:35)
[2022-07-21 14:34] LABS: Basophils % 0.9 %; Eosinophils % 0.9 %; Hematocrit 24.8 % (37.0-47.0); Hemoglobin 7.3 g/dL (11.5-15.3); Lymphocytes # 0.5 10^3/uL (0.8-4.8); Lymphocytes % 11.6 %; Mean Corpuscular HGB Conc 29.4 g/dL (30.0-36.0); Mean Corpuscular Hemoglobin 28.9 pg (28.0-34.0); Monocytes # 0.3 10^3/uL (0.2-0.9); Monocytes % 6.7 %; Neutrophils # 3.58 10^3/uL (1.8-7.7); Neutrophils % 79.5 %; Nucleated Red Blood Cells # 0.1 /100WBC; Nucleated Red Blood Cells % 2.2 %; Platelet Count 107 10^3/cmm (130-400); Red Blood Count 2.53 10^6/uL (4.1-5.3); Red Cell Distribution Width 22.5 % (12.1-15.1); White Blood Count 4.5 10^3/uL (4.0-10.0)
--- NOTE | 2022-07-21 14:52 | ANE.PACU2 ---
Inpatient post-anesthesia follow up: Airway intact: Yes Vital signs: Temperature 97.6 F Pulse Rate 75 Respiratory Rate 16 Blood Pressure 108/63 Pulse Oximetry 99 Oxygen Delivery Me thod Nasal Cannula Oxygen Flow Rate 3 Fraction of Inspir ed Oxygen 30 Hydration adequate: Yes Nausea and vomiting: No Pain level: 2 Mental status: Baseline
[2022-07-21 15:15] LABS: Slide Review Slide Review Perform
--- NOTE | 2022-07-21 21:14 | PM.PN ---
Subjective Subjective: s/p tunnelled catheter placement Medications: Reviewed: Yes Vitals/I&O/Wt Last Vital Signs Temp 97.9 F 07/21/22 19:49 Pulse 79 07/21/22 19:49 Resp 16 07/21/22 19:49 BP 98/62 07/21/22 19:49 Pulse Ox 97 07/21/22 19:49 O2 Del Method Nasal Cannula 07/21/22 19:49 O2 Flow Rate 3 07/21/22 19:49 FiO2 30 07/21/22 15:54 07/21/22 07/21/22 07/21/22 06:59 14:59 22:59 Intake Total 100 / 500 330 / 330 1380 / 1710 Output Total 100 / 3400 0 / 0 Balance 0 / -2900 330 / 330 1380 / 1710 Weight last 48 hrs Weight 87.5 kg Physical Exam Narrative: pt awake , alert HEENT PEERLA S1 S2 RRR Lungs clearbil per report + LE edema Urinary Catheter Management: Weber: Cath Placed During This Visit: yes Reason for Continuing Indwelling Catheter: Accurate Measurement of Urinary Output in Critically Ill Patients Urinary Catheter Date of Insertion: 07/07/22 Urinary Catheter Time of Insertion: 20:33 Data 07/21/22 14:10 07/21/22 05:00 A&P Assessment and plan (1) Acute kidney injury: 1. Acute on CKD 3 : Cr baseline mid 1 range. Now presents with ANI with Cr 3.1 associated with Hyperkalemia and volume overload. - oLiguric ,pt DNR/I , but agrees for temporary HD if needed -Status post CRRT when blood pressures were low and transitioned to HD for volume overload -No response to diuretics , and will benifit from intermission coordinator HD for volume management s/p tunnelled catheter placement today , HD IN AM , likely will do HD 2 times/week -Avoid Nephrotoxins and IV contrast studies 2. hyperkalemia : improved 3. H/o CHF 4. Metabolic acidosis , mild , monitor 5. Anemia :s/p Epogen ,transfuse if Hb < 7 pt DNR/I Plan per medicine Attestations Medical Necessity Statement*: per medicine Coding Level of Care Code Acute Code for [facility] Diagnoses Acute kidney injury N17.9
[2022-07-22] VITALS (16 sets, daily range): BP systolic 95–113; BP diastolic 56–69; PULSE 0–82; RESP 14–26; TEMP 36.6–36.8; O2SAT 91–100
[2022-07-22] MEDS: FUROsemide 10 mg/mL SDV 4mL 40 MG IVP ×2 (03:27→17:29)
[2022-07-22] MEDS: albumin 25 G/100 ML BAG 60 G IV ×3 (03:27→21:09)
--- NOTE | 2022-07-22 07:40 | PC.HD ---
Surgical dressing of HD catheter insertion site was changed. Gauze noted to have old blood on it. Area cleansed with Chloraprep. Light bleeding noted from catheter insertion site. 4x4 folded and affixed with Tegaderm to allow for visual monitoring of additional blood. In addition, patient was removed from BiPAP by RT immediately prior to transfer to dialysis room. Prior to treatment initiation, patent's saturations were noted to drop down to 84%. 3L NC applied, and saturations increased to 100%. Patient denies any discomfort or shortness of breath.
[2022-07-22 10:22] LABS: Basophils % 0.4 %; Eosinophils % 0.1 %; Hematocrit 22.5 % (37.0-47.0); Hemoglobin 6.8 g/dL (11.5-15.3); Lymphocytes # 0.7 10^3/uL (0.8-4.8); Mean Corpuscular HGB Conc 30.2 g/dL (30.0-36.0); Mean Corpuscular Hemoglobin 28.8 pg (28.0-34.0); Mean Corpuscular Volume 95.3 fl (81-99); Mean Platelet Volume 13.3 fL (7.4-10.4); Monocytes # 0.7 10^3/uL (0.2-0.9); Monocytes % 9.2 %; Neutrophils # 6.12 10^3/uL (1.8-7.7); Neutrophils % 81.2 %; Nucleated Red Blood Cells # 0.1 /100WBC; Nucleated Red Blood Cells % 0.7 %; Platelet Count 101 10^3/cmm (130-400); Red Blood Count 2.36 10^6/uL (4.1-5.3); Red Cell Distribution Width 22.2 % (12.1-15.1); White Blood Count 7.5 10^3/uL (4.0-10.0)
[2022-07-22 10:43] LABS: Alanine Aminotransferase 6 U/L (0-33); Alkaline Phosphatase 78 U/L (35-105); Anion Gap 18.1 (5-19); Aspartate Amino Transferase 21 U/L (0-32); Blood Urea Nitrogen 15 mg/dL (8-23); Calcium 9.7 mg/dL (8.5-10.5); Carbon Dioxide 26 mmol/L (22-29); Chloride 98 mmol/L (98-107); Glucose 89 mg/dL (65-115); Osmolality Calculated 288 mOsm/kg (285-295); Potassium 3.1 mmol/L (3.5-5.1); Sodium 139 mmol/L (136-145); Total Bilirubin 2.8 mg/dL (0.15-1.2); Total Protein 8.2 g/dL (6.6-8.7)
[2022-07-22 11:13] LABS: Globulin 1.2 g/dL (1.3-4.6)
[2022-07-22] MEDS: midodrine 5 mg TABLET 10 MG PO ×3 (11:18→20:43)
[2022-07-22] MEDS: sennosides-docusate Tablet 1 TAB PO ×2 (11:18→17:29)
[2022-07-22] MEDS: pantoprazole DR 40 mg Tablet PO (11:19)
--- NOTE | 2022-07-22 13:05 | PM.PN ---
Subjective Subjective: s/p HD yesterday Medications: Reviewed: Yes Vitals/I&O/Wt Last Vital Signs Temp 98.2 F 07/22/22 10:40 Pulse 79 07/22/22 11:26 Resp 16 07/22/22 11:26 BP 100/59 07/22/22 11:26 Pulse Ox 100 07/22/22 11:26 O2 Del Method Nasal Cannula 07/22/22 11:26 O2 Flow Rate 3 07/21/22 23:49 FiO2 30 07/22/22 04:43 07/21/22 07/22/22 07/22/22 22:59 06:59 14:59 Intake Total 1380 / 1710 100 / 1810 300 / 300 Output Total 50 / 50 50 / 100 3300 / 3300 Balance 1330 / 1660 50 / 1710 -3000 / -3000 Weight last 48 hrs Weight 85.4 kg Weight 87.5 kg Physical Exam Narrative: pt awake , alert HEENT PEERLA S1 S2 RRR Lungs clearbil per report + LE edema Urinary Catheter Management: Weber: Cath Placed During This Visit: yes Reason for Continuing Indwelling Catheter: Accurate Measurement of Urinary Output in Critically Ill Patients Urinary Catheter Date of Insertion: 07/07/22 Urinary Catheter Time of Insertion: 20:33 Data 07/22/22 09:53 07/22/22 09:53 A&P Assessment and plan (1) Acute kidney injury: 1. Acute on CKD 3 : Cr baseline mid 1 range. Now presents with ANI with Cr 3.1 associated with Hyperkalemia and volume overload. - oLiguric ,pt DNR/I , but agrees for temporary HD if needed -Status post CRRT when blood pressures were low and transitioned to HD for volume overload -No response to diuretics , and will benifit from [facility] HD for volume management s/p tunnelled catheter placement , HD today , likely will do HD 2 times/week -Avoid Nephrotoxins and IV contrast studies 2. hyperkalemia : improved 3. H/o CHF 4. Metabolic acidosis , mild , monitor 5. Anemia :s/p Epogen ,transfuse if Hb < 7 pt DNR/I Attestations Medical Necessity Statement*: per medicine Coding Level of Care Code Acute Code for [facility] Diagnoses Acute kidney injury N17.9
[2022-07-22 14:09] LABS: ADAMTS 13 Activity 0.34 IU/mL (0.68-1.63)
--- NOTE | 2022-07-22 16:11 | PM.PN ---
Subjective Subjective: Patient was seen and examined this morning, hemoglobin has dropped to 6.8 today, will transfuse her 1 unit PRBC, platelet count has improved, she underwent routine hemodialysis today. Medications: Reviewed: Yes Medication Review Details: Generic Name Dose Route Start Last Admin Trade Name Freq PRN Reason Stop Dose Admin Artificial Tears 1 drop 07/19/22 18:14 07/21/22 18:08 Artificial Tears Op Soln 15 Ml Btl EYE-BOTH 1 drop Q4H PRN Administration DRY EYE(S) Benzonatate 200 mg 07/11/22 14:31 07/15/22 23:13 Benzonatate 100 Mg Capsule PO 200 mg TID PRN Administration COUGH Furosemide 40 mg 07/13/22 11:45 07/22/22 03:27 Furosemide 10 Mg /Ml Sdv 4ml IVP 40 mg Q12H KACEY Administration Heparin Sodium (Po rcine) 500 unit 07/09/22 09:07 07/11/22 00:46 Heparin Lock Flu sh 500 Unit/5 Ml S yringe IV 500 unit PRN PRN Administration At CRRT disconnec t Albumin Human 25 g in 100 mls @ 60 mls/hr 07/13/22 11:45 07/22/22 11:20 Albumin IV 60 mls/hr Q8H KACEY Administration Midodrine 10 mg 07/16/22 15:00 07/22/22 11:18 Midodrine 5 Mg T ablet PO 10 mg TID KACEY Administration Non-Formulary Medi cation 30 mg 07/20/22 18:00 07/22/22 11:19 Lansoprazole [Pr evacid] PO Not Given BID KACEY Ondansetron HCl 4 mg 07/07/22 22:37 07/21/22 13:03 Ondansetron 2 Mg /Ml Sdv 2 Ml IVP 4 mg Q8H PRN Administration vomiting, or N/V if npo Ondansetron HCl 4 mg 07/21/22 18:05 07/21/22 18:35 Ondansetron 2 Mg /Ml Sdv 2 Ml IVP 4 mg Q4H PRN Administration NAUSEA AND VOMITI NG Pantoprazole Sodiu m 40 mg 07/14/22 09:00 07/22/22 11:[address] 40 Mg Tablet PO 40 mg DAILY KACEY Administration Polyethylene Glyco l 17 gm 07/14/22 09:00 07/22/22 11:19 Polyethylene Gly col 3350 Pkt 17 Gm PO Not Given DAILY KACEY Senna/Docusate Sod ium 1 tab 07/14/22 09:00 07/22/22 11:18 Sennosides-Docus ate Tablet PO 1 tab BID KACEY Administration Vitals/I&O/Wt Last Vital Signs Temp 98.2 F 07/22/22 10:40 Pulse 79 07/22/22 11:26 Resp 16 07/22/22 11:26 BP 100/59 07/22/22 11:26 Pulse Ox 100 07/22/22 11:26 O2 Del Method Nasal Cannula 07/22/22 11:26 O2 Flow Rate 3 07/21/22 23:49 FiO2 30 07/22/22 04:43 07/22/22 07/22/22 07/22/22 06:59 14:59 22:59 Intake Total 100 / 1810 420 / 420 Output Total 50 / 100 3300 / 3300 Balance 50 / 1710 -2880 / -2880 Weight last 48 hrs Weight 85.4 kg Physical Exam Narrative: NAD HENMT: COMMON NORMALS: normocephalic and atraumatic HEAD & SCALP: normocephalic and atraumatic Resp: COMMON NORMALS: clear to auscultation bilaterally EFFORT & INSPECTION: Yes symmetric chest movement AUSCULTATION: clear to auscultation bilaterally Cardio: COMMON NORMALS: regular rate, regular rhythm, S1 normal heart sound present, S2 normal heart sound present, No gallops present (Cardio), No murmurs present (Cardio), No rub (Cardio) and Peripheral pulses 2+ throughout RATE: regular rate RHYTHM: regular rhythm HEART SOUNDS: S1 normal heart sound present and S2 normal heart sound present PERIPHERAL PULSES: Peripheral pulses 2+ throughout GI: COMMON NORMALS: Normal to inspection, nondistended, normoactive bowel sounds present, Soft to palpation, non-tender, No hepatosplenomegaly present and no masses AUSCULTATION: Yes normoactive bowel sounds PALPATION: Yes Soft to palpation and Yes No hepatosplenomegaly present RECTAL EXAM: deferred Extremity: COMMON NORMALS: no clubbing, cyanosis or edema and no pedal edema Urinary Catheter Management: Weber: Cath Placed During This Visit: yes Reason for Continuing Indwelling Catheter: Accurate Measurement of Urinary Output in Critically Ill Patients Urinary Catheter Date of Insertion: 07/07/22 Urinary Catheter Time of Insertion: 20:33 Data 07/22/22 09:53 07/22/22 09:53 A&P Assessment and plan (1) Bicytopenia: (2) Acute kidney injury: (3) Restrictive lung disease: (4) Autoimmune hemolytic anemia: Plan (1) Septic shock, shock is now resolved. 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 She has the appearance of an effusion however multiple past thoracentesis attempts have not shown any significant fluid pockets. Likely that radiological appearance is related to hemidiaphragm elevation. CT chest small bilateral pleural effusions with compressive atelectasis. no consolidation CT abdomen/pelvis no obvious abdominal source of infection Patient underwent bronchsocopy on last admission which showed edematous bronchial wall however respiratory cx remained negative. Received Zosyn empiric course for 9 days, abx stopped on 07/16 Currently doing well off antibiotics (2) Acute kidney injury: She is anuric. urine output ~ 70 cc received HD on Wed and wednesday Cr back up to 3.4 Given persisting anuria, decision made to transition patient to outpatient HD. Status post tunnel catheter placement Appreciate renal recommendations (3) Bicytopenia, suspected MAHA vs HUS: Currently improving thrombocytopenia S/p 2 u PRBC transfusion monitor H&H unclear etiology unable to obatin FOBT Resp panel negative may be related to sepsis however no untreated source appears to be evident at this time HIT panel negative elevated T bili, anemia, [place] cells on peripheral smearl, spherocytes, low haptoglobin raise concern for MAHA VS hemolytic uremic syndrome. Peripheral smear was discussed with Dr. Gross. Pending ADAMTS 13 testing Patient had diarrheal illness about a month ago which she attributed to laxative use for IBS Planned for transfer to [facility] initially but this fell through as [facility] recommended transfer to tertiary center. Since plt and Hb appear to have stabilized for now, we are monitoring closely. Transfer may need to be initiated to [facility] should plt start to fall again for need for plasmapharesis. will need outpatient hematology follow up (4) LRTI (lower respiratory tract infection): completed 9 days os empiric Zosyn, now stopped (5) Heart failure, chronic, preserved ejection fraction : Normal left ventricular size and systolic function, EF 61 %. No ?regional wall motion abnormalities.?Moderately increased right ventricular size. Mildly decreased ?right ventricular systolic function.Dilated IVC with decreased respiratory variation. metoprolol on hold due to borderline BP. Midodrine 10 mg TID added with good response. currently on lasix 40mg iv q12h, to continue per renal (6) Hyperkalemia: resolved Dvt ppx: on hold due to thrombocytopenia PUD ppx: protonix Attestations Medical Necessity Statement*: Needs to be in hospital for PRBC transfusion, for monitoring of hemoglobin as well as platelet count. Coding Level of Care Code Acute Code for [facility] Diagnoses Bicytopenia D75.89 Acute kidney injury N17.9 Restrictive lung disease J98.4 Autoimmune hemolytic anemia D59.10
[2022-07-22] MEDS: HYDROcodone-acetaminophen 5-325 mg Tablet 1 TAB PO (20:43)
[2022-07-23] VITALS (9 sets, daily range): BP systolic 101–130; BP diastolic 65–77; PULSE 80–82; RESP 15–17; TEMP 36.4–36.8; O2SAT 96–100
[2022-07-23] MEDS: FUROsemide 10 mg/mL SDV 4mL 40 MG IVP ×2 (03:19→16:52)
[2022-07-23 05:06] LABS: Basophils # 0.1 10^3/uL (0.0-0.1); Basophils % 0.6 %; Eosinophils # 0.1 10^3/uL (0.0-0.8); Eosinophils % 1.4 %; Hematocrit 27.8 % (37.0-47.0); Lymphocytes # 0.9 10^3/uL (0.8-4.8); Lymphocytes % 12.1 %; Mean Corpuscular HGB Conc 28.8 g/dL (30.0-36.0); Mean Corpuscular Hemoglobin 27.8 pg (28.0-34.0); Mean Corpuscular Volume 96.5 fl (81-99); Monocytes # 0.8 10^3/uL (0.2-0.9); Monocytes % 10.2 %; Neutrophils # 5.81 10^3/uL (1.8-7.7); Neutrophils % 75.4 %; Nucleated Red Blood Cells # 0.1 /100WBC; Platelet Count 112 10^3/cmm (130-400); Red Blood Count 2.88 10^6/uL (4.1-5.3); Red Cell Distribution Width 21.7 % (12.1-15.1); White Blood Count 7.7 10^3/uL (4.0-10.0)
[2022-07-23 05:33] LABS: Alanine Aminotransferase 8 U/L (0-33); Albumin Level 5.4 g/dL (3.5-5.2); Alkaline Phosphatase 73 U/L (35-105); Blood Urea Nitrogen 33 mg/dL (8-23); Calcium 10.2 mg/dL (8.5-10.5); Carbon Dioxide 22 mmol/L (22-29); Chloride 97 mmol/L (98-107); Globulin 2.4 g/dL (1.3-4.6); Glucose 92 mg/dL (65-115); Osmolality Calculated 291 mOsm/kg (285-295); Sodium 137 mmol/L (136-145); Total Bilirubin 2.5 mg/dL (0.15-1.2); Total Protein 7.8 g/dL (6.6-8.7)
[2022-07-23 05:34] LABS: Slide Review Slide Review Perform
[2022-07-23 05:36] LABS: Mean Platelet Volume 12.2 fL (7.4-10.4)
[2022-07-23 05:39] LABS: Anion Gap 22.2 (5-19); Aspartate Amino Transferase 36 U/L (0-32); Potassium 4.2 mmol/L (3.5-5.1)
--- NOTE | 2022-07-23 08:16 | P.PN_ITS ---
Subjective Subjective: no new complaints Medications: Reviewed: Yes Vitals/I&O/Wt Last Vital Signs Temp 97.7 F 07/23/22 08:00 Pulse 80 07/23/22 08:00 Resp 15 07/23/22 08:00 BP 109/70 07/23/22 08:00 Pulse Ox 96 07/23/22 08:00 O2 Del Method Nasal Cannula 07/23/22 08:00 O2 Flow Rate 3 07/22/22 20:00 FiO2 30 07/23/22 03:15 07/22/22 07/23/22 07/23/22 22:59 06:59 14:59 Intake Total 250 / 670 570 / 1240 Balance 250 / -2630 570 / -2060 Weight last 48 hrs Weight 85.4 kg Physical Exam Narrative: pt awake , alert HEENT PEERLA S1 S2 RRR Lungs clearbil per report + LE edema Urinary Catheter Management: Weber: Cath Placed During This Visit: yes Reason for Continuing Indwelling Catheter: Other Urinary Catheter Date of Insertion: 07/07/22 Urinary Catheter Time of Insertion: 20:33 Data 07/23/22 04:30 07/23/22 04:30 A&P Assessment and plan (1) Acute kidney injury: 1. Acute on CKD 3 : Cr baseline mid 1 range. Now presents with ANI with Cr 3.1 associated with Hyperkalemia and volume overload. - oLiguric ,pt DNR/I , but agrees for temporary HD if needed -Status post CRRT when blood pressures were low and transitioned to HD for volume overload -No response to diuretics , and will benifit from care home HD for volume management s/p tunnelled catheter placement , HD per TTS schedule -Avoid Nephrotoxins and IV contrast studies 2. hyperkalemia : improved 3. H/o CHF 4. Metabolic acidosis , mild , monitor 5. Anemia :s/p Epogen ,transfuse if Hb < 7 pt DNR/I Attestations Medical Necessity Statement*: per medicine Coding Level of Care Code Acute Code for [facility] Diagnoses Acute kidney injury N17.9
[2022-07-23] MEDS: epoetin alfa 10,000 unit/mL INJ 10000 UNIT SUBCUT (08:36)
[2022-07-23] MEDS: sennosides-docusate Tablet 1 TAB PO ×2 (08:39→16:52)
[2022-07-23] MEDS: midodrine 5 mg TABLET 10 MG PO ×3 (08:39→20:30)
[2022-07-23] MEDS: pantoprazole DR 40 mg Tablet PO (08:39)
--- NOTE | 2022-07-23 16:23 | PM.PN ---
Subjective Subjective: Patient was seen and examined this morning, no new complaints, s/p 1 unit PRBC transfusion, post transfusion H&H : 11/08. Medications: Reviewed: Yes Medication Review Details: Generic Name Dose Route Start Last Admin Trade Name Freq PRN Reason Stop Dose Admin Hydrocodone Bitart /Acetaminophen 1 tab 07/21/22 08:57 07/22/22 20:43 Hydrocodone-Acet aminophen 5-325 Mg Tablet PO 1 tab Q4H PRN Administration MODERATE PAIN Artificial Tears 1 drop 07/19/22 18:14 07/21/22 18:08 Artificial Tears Op Soln 15 Ml Btl EYE-BOTH 1 drop Q4H PRN Administration DRY EYE(S) Benzonatate 200 mg 07/11/22 14:31 07/15/22 23:13 Benzonatate 100 Mg Capsule PO 200 mg TID PRN Administration COUGH Furosemide 40 mg 07/13/22 11:45 07/23/22 03:19 Furosemide 10 Mg /Ml Sdv 4ml IVP 40 mg Q12H KACEY Administration Heparin Sodium (Po rcine) 500 unit 07/09/22 09:07 07/11/22 00:46 Heparin Lock Flu sh 500 Unit/5 Ml S yringe IV 500 unit PRN PRN Administration At CRRT disconnec t Albumin Human 25 g in 100 mls @ 60 mls/hr 07/23/22 08:00 07/23/22 14:04 Albumin IV Not Given Q8H KACEY Midodrine 10 mg 07/16/22 15:00 07/23/22 08:39 Midodrine 5 Mg T ablet PO 10 mg TID KACEY Administration Non-Formulary Medi cation 30 mg 07/20/22 18:00 07/23/22 08:46 Lansoprazole [Pr evacid] PO 30 mg BID KACEY Administration Ondansetron HCl 4 mg 07/07/22 22:37 07/21/22 13:03 Ondansetron 2 Mg /Ml Sdv 2 Ml IVP 4 mg Q8H PRN Administration vomiting, or N/V if npo Ondansetron HCl 4 mg 07/21/22 18:05 07/21/22 18:35 Ondansetron 2 Mg /Ml Sdv 2 Ml IVP 4 mg Q4H PRN Administration NAUSEA AND VOMITI NG Pantoprazole Sodiu m 40 mg 07/14/22 09:00 07/23/22 08:[address] 40 Mg Tablet PO 40 mg DAILY KACEY Administration Polyethylene Glyco l 17 gm 07/14/22 09:00 07/23/22 08:47 Polyethylene Gly col 3350 Pkt 17 Gm PO Not Given DAILY KACEY Senna/Docusate Sod ium 1 tab 07/14/22 09:00 07/23/22 08:39 Sennosides-Docus ate Tablet PO 1 tab BID KACEY Administration Vitals/I&O/Wt Last Vital Signs Temp 97.5 F L 07/23/22 15:50 Pulse 82 07/23/22 15:50 Resp 17 07/23/22 15:50 BP 113/73 07/23/22 15:50 Pulse Ox 100 07/23/22 15:50 O2 Del Method Nasal Cannula 07/23/22 15:50 O2 Flow Rate 3 07/22/22 20:00 FiO2 30 07/23/22 03:15 07/23/22 07/23/22 07/23/22 06:59 14:59 22:59 Intake Total 570 / 1240 720 / 720 Balance 570 / -2060 720 / 720 Weight last 48 hrs Weight 85.4 kg Physical Exam Narrative: NAD Const: COMMON NORMALS: patient oriented x3 HENMT: COMMON NORMALS: normocephalic and atraumatic HEAD & SCALP: normocephalic and atraumatic Resp: COMMON NORMALS: normal respiratory effort, No retractions, No use of accessory muscles and clear to auscultation bilaterally EFFORT & INSPECTION: Yes symmetric chest movement AUSCULTATION: clear to auscultation bilaterally Cardio: COMMON NORMALS: regular rate, regular rhythm, S1 normal heart sound present, S2 normal heart sound present, No gallops present (Cardio), No murmurs present (Cardio), No rub (Cardio) and Peripheral pulses 2+ throughout RATE: regular rate RHYTHM: regular rhythm HEART SOUNDS: S1 normal heart sound present and S2 normal heart sound present PERIPHERAL PULSES: Peripheral pulses 2+ throughout GI: COMMON NORMALS: Normal to inspection, nondistended, normoactive bowel sounds present, Soft to palpation, non-tender, No hepatosplenomegaly present and no masses AUSCULTATION: Yes normoactive bowel sounds PALPATION: Yes Soft to palpation and Yes No hepatosplenomegaly present RECTAL EXAM: deferred Extremity: COMMON NORMALS: no clubbing, cyanosis or edema and no pedal edema Neuro: COMMON NORMALS: patient oriented x3 Urinary Catheter Management: Weber: Cath Placed During This Visit: yes Reason for Continuing Indwelling Catheter: Other Urinary Catheter Date of Insertion: 07/07/22 Urinary Catheter Time of Insertion: 20:33 Data 07/23/22 04:30 07/23/22 04:30 A&P Assessment and plan (1) Bicytopenia: (2) Acute kidney injury: (3) Restrictive lung disease: (4) Autoimmune hemolytic anemia: Plan (1) Septic shock, shock is now resolved. 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 She has the appearance of an effusion however multiple past thoracentesis attempts have not shown any significant fluid pockets. Likely that radiological appearance is related to hemidiaphragm elevation. CT chest small bilateral pleural effusions with compressive atelectasis. no consolidation CT abdomen/pelvis no obvious abdominal source of infection Patient underwent bronchsocopy on last admission which showed edematous bronchial wall however respiratory cx remained negative. Received Zosyn empiric course for 9 days, abx stopped on 07/16 Currently doing well off antibiotics (2) Acute kidney injury: She is anuric. urine output ~ 70 cc received HD on Wed and wednesday Cr back up to 3.4 Given persisting anuria, decision made to transition patient to outpatient HD. Status post tunnel catheter placement Appreciate renal recommendations (3) Bicytopenia, suspected MAHA vs HUS: Currently improving thrombocytopenia S/p 2 u PRBC transfusion monitor H&H unclear etiology unable to obatin FOBT Resp panel negative may be related to sepsis however no untreated source appears to be evident at this time HIT panel negative elevated T bili, anemia, [place] cells on peripheral smearl, spherocytes, low haptoglobin raise concern for MAHA VS hemolytic uremic syndrome. Peripheral smear was discussed with Dr. Gross. Pending ADAMTS 13 testing Patient had diarrheal illness about a month ago which she attributed to laxative use for IBS Planned for transfer to [facility] initially but this fell through as [facility] recommended transfer to tertiary center. Since plt and Hb appear to have stabilized for now, we are monitoring closely. [facility] for need for plasmapharesis. will need outpatient hematology follow up (4) LRTI (lower respiratory tract infection): completed 9 days os empiric Zosyn, now stopped (5) Heart failure, chronic, preserved ejection fraction : Normal left ventricular size and systolic function, EF 61 %. No ?regional wall motion abnormalities.?Moderately increased right ventricular size. Mildly decreased ?right ventricular systolic function.Dilated IVC with decreased respiratory variation. metoprolol on hold due to borderline BP. Midodrine 10 mg TID added with good response. currently on lasix 40mg iv q12h, to continue per renal (6) Hyperkalemia: resolved Dvt ppx: on hold due to thrombocytopenia PUD ppx: protonix Attestations Medical Necessity Statement*: Patient is to be in hospital for monitoring of H&H and platelet count. Coding Level of Care Code Acute Code for [facility] Diagnoses Bicytopenia D75.89 Acute kidney injury N17.9 Restrictive lung disease J98.4 Autoimmune hemolytic anemia D59.10
[2022-07-24] VITALS (9 sets, daily range): BP systolic 96–110; BP diastolic 60–76; PULSE 80–81; RESP 16–21; TEMP 36.4–37.1; O2SAT 88–99
[2022-07-24] MEDS: FUROsemide 10 mg/mL SDV 4mL 40 MG IVP (04:03)
--- NOTE | 2022-07-24 08:45 | P.PN_ITS ---
Subjective Subjective: no new complaints Medications: Reviewed: Yes Vitals/I&O/Wt Last Vital Signs Temp 97.8 F 07/24/22 08:00 Pulse 80 07/24/22 08:00 Resp 17 07/24/22 08:00 BP 106/66 07/24/22 08:00 Pulse Ox 97 07/24/22 08:00 O2 Del Method Nasal Cannula 07/23/22 15:50 O2 Flow Rate 2 07/23/22 20:00 FiO2 30 07/24/22 02:58 07/23/22 07/24/22 07/24/22 22:59 06:59 14:59 Intake Total 360 / 1080 60 / 1140 Output Total 50 / 50 Balance 310 / 1030 60 / 1090 Weight last 48 hrs Weight 85.4 kg Physical Exam Narrative: pt awake , alert HEENT PEERLA S1 S2 RRR Lungs clearbil per report + LE edema Urinary Catheter Management: Weber: Cath Placed During This Visit: yes Reason for Continuing Indwelling Catheter: Other Urinary Catheter Date of Insertion: 07/07/22 Urinary Catheter Time of Insertion: 20:33 Data 07/23/22 04:30 07/23/22 04:30 A&P Assessment and plan (1) Acute kidney injury: 1. Acute on CKD 3 : Cr baseline mid 1 range. Now presents with ANI with Cr 3.1 associated with Hyperkalemia and volume overload. 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 hyperkalemia : improved 3. H/o CHF 4. Metabolic acidosis , mild , monitor 5. Anemia :s/p Epogen ,transfuse if Hb < 7 pt DNR/I Attestations Medical Necessity Statement*: per medicine Coding Level of Care Code Acute Code for [facility] Diagnoses Acute kidney injury N17.9
[2022-07-24] MEDS: albumin 12.5 GM/50 ML VIAL IV ×2 (09:30→11:00)
[2022-07-24] MEDS: pantoprazole DR 40 mg Tablet PO (09:44)
[2022-07-24] MEDS: midodrine 5 mg TABLET 10 MG PO ×2 (09:44→15:39)
[2022-07-24] MEDS: sennosides-docusate Tablet 1 TAB PO (09:44)
[2022-07-24] MEDS: heparin, porcine 1,000 unit/mL INJ 10 mL 10000 UNIT INTRACATH (10:00)
[2022-07-24 11:08] LABS: Anion Gap 17.4 (5-19); Blood Urea Nitrogen 41 mg/dL (8-23); Calcium 9.5 mg/dL (8.5-10.5); Carbon Dioxide 26 mmol/L (22-29); Chloride 99 mmol/L (98-107); Glucose 96 mg/dL (65-115); Osmolality Calculated 298 mOsm/kg (285-295); Potassium 3.4 mmol/L (3.5-5.1); Sodium 139 mmol/L (136-145)
[2022-07-24 11:18] LABS: Basophils # 0.1 10^3/uL (0.0-0.1); Basophils % 1.1 %; Eosinophils # 0.2 10^3/uL (0.0-0.8); Eosinophils % 2.6 %; Hematocrit 26.5 % (37.0-47.0); Hemoglobin 8.1 g/dL (11.5-15.3); Lymphocytes # 0.9 10^3/uL (0.8-4.8); Lymphocytes % 15.3 %; Mean Corpuscular HGB Conc 30.6 g/dL (30.0-36.0); Mean Corpuscular Hemoglobin 28.1 pg (28.0-34.0); Mean Platelet Volume 12.5 fL (7.4-10.4); Monocytes # 0.4 10^3/uL (0.2-0.9); Monocytes % 6.9 %; Neutrophils # 4.18 10^3/uL (1.8-7.7); Neutrophils % 73.7 %; Nucleated Red Blood Cells % 0.7 %; Platelet Count 107 10^3/cmm (130-400); Red Blood Count 2.88 10^6/uL (4.1-5.3); Red Cell Distribution Width 21.7 % (12.1-15.1); White Blood Count 5.7 10^3/uL (4.0-10.0)
--- NOTE | 2022-07-24 11:47 | P.DS_ITS ---
Discharge Providers Date of Admission: 07/07/22 22:16 Date of Discharge: July 24, 2022 Attending Provider at Admission: Armida Antonio MD Attending Provider at Discharge: Abilio Maurer MD Primary Care Provider: Neeraj Cardoza MD Diagnoses at Discharge Discharge Diagnosis (1) Acute kidney injury: Status: Inactive Reason for Visit Reason for Visit: Low Blood pressure Hospital Course Hospital Course Megan Das is 82 year old lady with past medical history of CHF, chronic kidney disease baseline cr ~1.3, hypertension, A-fib with PPM, asthma presented to the hospital on 07/07 for generalized weakness, shortness of breath. She feelt that she has gained weight and she feels very edematous.? On arrival, she was hypothermic, hyperkalemic, had an elevated lacatate and cr of 3.1. Initial concern on presentation was that for sepsis and ANI on CKD, she underwent CRRT on 07/09 for 48 hrs and then this has been on hold. She is on watchful waiting per renal. Source evaluation of sepsis has not yielded any obvious source. CT CAP shows B/L atelcatasis and small effusions, urine and blood cx are negative. She is off levopehed now. Course of admission has been notable for development of thrombocytopenia and anemia. Hb today at 6.9 for which she received blood transfuion. No bleeding source identified except for multiple skin hematomas. NO abdominal bleeding. hemoccult negative at bedside. Platelets down to 33 during this admission (baseline 130-150). Labs checked for hemolysis due to concern for TTP vs MAHA, showed low haptoglobin. normal LDH, T bili 1.3, normal LFT. Peripheral smear discussed with Dr. Gross, shows schistocytes and [place] cells , giant platelets, which are concerning for MAHA. ADAMTS 13 testing sent today,pending, results expceted in 5-7 days. Unlikely HIT as thrombocytopenia has been present since admission. A GIANNI was negative. Given these findings discussed with patient the need to be followed by inpatient hematology, possible considerations for Rituxan therapy &/or plasmapharesis, attempt to transfer the patient was made,but beds were not avilable patient was managed conservatively here, later platelet count started improving.With regards to her ANI she eneded up getting tunneled H/D Catheter and was discharged for outpatient H/D.Overall she responded well to above emdical management and she was discharged in stable condition to home.She will follow renal as well as pcp as outpatient. Physical Exam Narrative: NAD Const: COMMON NORMALS: patient oriented x3 HENMT: COMMON NORMALS: normocephalic and atraumatic HEAD & SCALP: normocephalic and atraumatic Resp: COMMON NORMALS: normal respiratory effort, No retractions, No use of accessory muscles and clear to auscultation bilaterally EFFORT & INSPECTION: Yes symmetric chest movement AUSCULTATION: clear to auscultation bilaterally Cardio: COMMON NORMALS: regular rate, regular rhythm, S1 normal heart sound present, S2 normal heart sound present, No gallops present (Cardio), No murmurs present (Cardio), No rub (Cardio) and Peripheral pulses 2+ throughout RATE: regular rate RHYTHM: regular rhythm HEART SOUNDS: S1 normal heart sound present and S2 normal heart sound present PERIPHERAL PULSES: Peripheral pulses 2+ throughout GI: COMMON NORMALS: Normal to inspection, nondistended, normoactive bowel sounds present, Soft to palpation, non-tender, No hepatosplenomegaly present and no masses AUSCULTATION: Yes normoactive bowel sounds PALPATION: Yes Soft to palpation and Yes No hepatosplenomegaly present RECTAL EXAM: deferred Extremity: COMMON NORMALS: no clubbing, cyanosis or edema and no pedal edema Neuro: COMMON NORMALS: patient oriented x3 Urinary Catheter Management: Weber: Cath Placed During This Visit: yes Reason for Continuing Indwelling Catheter: Other Urinary Catheter Date of Insertion: 07/07/22 Urinary Catheter Time of Insertion: 20:33 Discharge Data Studies Completed and Pending Completed Studies During Hospitalization Category [place] [id number] Routine Cat Scan 07/13/22 14:29 Completed CXRP [XR chest 1V portable [id number]] NOW Exams 07/09/22 11:29 Completed CXRP [XR chest 1V portable [id number]] Routine Exams 07/21/22 08:01 Completed FL barium swallow modifd [id number] Routine Exams 07/14/22 14:34 Completed XR chest 1V portable [id number] Stat Exams 07/07/22 18:08 Completed CV. echo limited [id number] Urgent Ultrasound 07/09/22 03:22 Completed Pending at discharge Category Date Time Status Miscellaneous Test Routine Lab 07/17/22 10:35 Received Sputum Culture and Gram Stain Stat Lab 07/08/22 00:59 Uncollected Radiology Impressions Chest/Abdomen/Pelvis CT 07/13/22 14:29 IMPRESSION: 1. Small bilateral pleural effusions with compressive atelectasis. 2. Lung volumes are decreased predominantly due to compressive atelectasis. 3. Small amount of ascites. 4. Extensive soft tissue anasarca. 5. Cholelithiasis. Fluid surrounding the gallbladder is probably related to the ascites. No hepatic duct dilatation. 6. No GI tract obstruction. 7. Weber catheter. Modified Barium Swallow 07/14/22 14:34 IMPRESSION: Modified barium swallow as above. C-Arm Fluoroscopy 07/21/22 00:00 IMPRESSION: Images obtained for intraoperative purposes. Chest X-Ray 07/21/22 08:01 IMPRESSION: Low lung volumes No acute findings. Right lower lobe pleural effusion Right central line in the right atrium Cardiac device left anterior chest Laboratory Results WBC 5.7 10^3/uL (4.0-10.0) 07/24/22 10:18 Corrected WBC Cancelled 07/18/22 11:17 RBC 2.88 10^6/uL (4.1-5.3) L 07/24/22 10:18 Hgb 8.1 g/dL (11.5-15.3) L 07/24/22 10:18 Hct 26.5 % (37.0-47.0) L 07/24/22 10:18 MCV 92.0 fl (81-99) 07/24/22 10:18 MCH 28.1 pg (28.0-34.0) 07/24/22 10:18 MCHC 30.6 g/dL (30.0-36.0) D 07/24/22 10:18 RDW 21.7 % (12.1-15.1) H 07/24/22 10:18 Plt Count 107 10^3/cmm (130-400) L 07/24/22 10:18 MPV 12.5 fL (7.4-10.4) H 07/24/22 10:18 Gran % Cancelled 07/18/22 11:17 Neut % (Auto) 73.7 % 07/24/22 10:18 Lymph % (Auto) 15.3 % 07/24/22 10:18 [place] % (Auto) 6.9 % 07/24/22 10:18 Eos % (Auto) 2.6 % 07/24/22 10:18 Baso % (Auto) 1.1 % 07/24/22 10:18 Reticulocyte % (Auto) 2.5 % (0.5-2.0) H 07/14/22 02:59 Reticulocyte % (Auto) Cancelled 07/14/22 02:59 Neut # (Auto) 4.18 10^3/uL (1.8-7.7) 07/24/22 10:18 Lymph # (Auto) 0.9 10^3/uL (0.8-4.8) 07/24/22 10:18 [place] # (Auto) 0.4 10^3/uL (0.2-0.9) 07/24/22 10:18 Eos # (Auto) 0.2 10^3/uL (0.0-0.8) 07/24/22 10:18 Baso # (Auto) 0.1 10^3/uL (0.0-0.1) 07/24/22 10:18 Absolute Gran (auto) Cancelled 07/18/22 11:17 Nucleated RBC % (auto) 0.7 % 07/24/22 10:18 Total Counted 100 (0-100) 07/18/22 04:44 Atypical Lymphs % 0.0 % (0-5) 07/18/22 04:44 Absolute Neutrophils 3.2 10^3/cmm (1.4-6.5) 07/18/22 04:44 Segmented Neutrophils 57 % 07/18/22 04:44 Abs Segm Neuts (Man) 3.0 10/cmm (1.6-7.1) 07/18/22 04:44 Band Neutrophils 4.0 % 07/18/22 04:44 Abs Band Neuts (Man) 0.2 10^3/cmm (0.0-1.2) 07/18/22 04:44 Absolute Lymphocytes 1.7 10^3/cmm (1.2-3.4) 07/18/22 04:44 Lymphocytes (Manual) 32 % 07/18/22 04:44 Monocytes (Manual) 5.0 % 07/18/22 04:44 Absolute Monocytes 0.3 10^3/cmm (0.1-0.6) 07/18/22 04:44 Eosinophils (Manual) 2 % 07/18/22 04:44 Absolute Eosinophils 0.1 10^3/cmm (0.0-0.7) 07/18/22 04:44 Basophils (Manual) 0.0 % 07/18/22 04:44 Absolute Basophils 0.0 10^3/cmm (0.0-0.2) 07/18/22 04:44 Metamyelocytes 1.0 % 07/11/22 04:17 Nucleated RBCs 2.0 /100WBC (0-1) H 07/11/22 04:17 Nucleated RBCs # 0.0 /100WBC 07/24/22 10:18 Smudge Cells 1+ H 07/18/22 04:44 Platelet Estimate Decreased (Normal) L 07/18/22 04:44 Giant Platelets Trace 07/11/22 04:17 Poikilocytosis 1+ H 07/18/22 04:44 Anisocytosis 1+ H 07/18/22 04:44 Macrocytosis Trace 07/18/22 04:44 Retic Production Index 1.46 07/14/22 02:59 Haptoglobin 10.0 mg/L (30-200) L 07/14/22 02:59 PT 19.40 SECONDS (12.1-14.9) H 07/17/22 10:35 INR 1.58 (0.8-1.2) H 07/17/22 10:35 APTT 73.4 SECONDS (23.9-36.7) H 07/17/22 10:35 Fibrinogen 128 mg/dL (174-498) L 07/17/22 10:35 Fibrin Degrad Products ug/mL (NEG) 07/17/22 10:35 D-Dimer 2.22 ug/mIFEU (0-0.59) H 07/17/22 10:35 [id number] Activity 0.34 IU/mL (0.68-1.63) L 07/14/22 18:13 Sodium 139 mmol/L (136-145) 07/24/22 10:18 Potassium 3.4 mmol/L (3.5-5.1) L 07/24/22 10:18 Chloride 99 mmol/L (98-107) 07/24/22 10:18 Carbon Dioxide 26 mmol/L (22-29) 07/24/22 10:18 Anion Gap 17.4 (5-19) 07/24/22 10:18 BUN 41 mg/dL (8-23) H 07/24/22 10:18 Creatinine 2.9 mg/dL (0.5-0.9) H 07/24/22 10:18 GFR Calculation Not Reportable 07/24/22 10:18 Glucose 96 mg/dL (65-115) 07/24/22 10:18 POC Glucose 182 mg/dL (70-110) H 07/07/22 21:34 Calculated Osmolality 298 mOsm/kg (285-295) H 07/24/22 10:18 Lactic Acid 1.4 mmol/L (0.5-2.2) 07/08/22 04:06 Lactate 2.4 mmol/L (0.5-2.2) H 07/07/22 18:40 Calcium 9.5 mg/dL (8.5-10.5) 07/24/22 10:18 Phosphorus 3.5 mg/dL (2.5-4.5) 07/13/22 04:19 Magnesium 2.2 mg/dL (1.7-2.3) 07/13/22 04:19 Total Bilirubin 2.5 mg/dL (0.15-1.2) H 07/23/22 04:30 Direct Bilirubin 0.70 mg/dL (0.00-0.30) H 07/14/22 02:59 Indirect Bilirubin 0.50 07/14/22 02:59 AST 36 U/L (0-32) H 07/23/22 04:30 ALT 8 U/L (0-33) 07/23/22 04:30 Alkaline Phosphatase 73 U/L (35-105) 07/23/22 04:30 Lactate Dehydrogenase 183 U/L (135-214) 07/14/22 02:59 Troponin T Baseline 36 ng/L (0-10) H 07/08/22 04:06 Troponin T 120 Minute 33.90 ng/L (0-10) H 07/08/22 07:35 Delta Troponin T -2.10 ABS# (0-10) L 07/08/22 07:35 Troponin T Hi Sens 6Hr 36.76 ng/L (0-10) H 07/08/22 10:28 Troponin T Hi Sens 6Hr Delta 0.76 ng/L (0-12) 07/08/22 10:28 NT-Pro-B Natriuret Pep 1467 pg/mL (0-450) H 07/07/22 18:40 Total Protein 7.8 g/dL (6.6-8.7) 07/23/22 04:30 Albumin 5.4 g/dL (3.5-5.2) H 07/23/22 04:30 Globulin 2.4 g/dL (1.3-4.6) 07/23/22 04:30 Urine Color Yellow (Yellow) 07/07/22 20:30 Urine Appearance Hazy (CLEAR) A 07/07/22 20:30 Urine pH 5 (5-7) 07/07/22 20:30 Ur Specific [place] 1.025 (1.005-1.030) 07/07/22 20:30 Urine Protein 1+ (Negative) H 07/07/22 20:30 Urine Glucose (UA) Norm (Normal) 07/07/22 20:30 Urine Ketones Negative (Negative) 07/07/22 20:30 Urine Blood Neg (Negative) 07/07/22 20:30 Urine Nitrate Negative (Negative) 07/07/22 20:30 Urine Bilirubin 1+ (Negative) H 07/07/22 20:30 Urine Urobilinogen Neg mg/dL (Negative) 07/07/22 20:30 Ur Leukocyte Esterase Negative (Negative) 07/07/22 20:30 Urine RBC None /hpf (0-2) 07/07/22 20:30 Urine WBC None /hpf (0-5) 07/07/22 20:30 Ur Squamous Epith Cells 0-4 /hpf (0-5) H 07/07/22 20:30 Amorphous Sediment Not Reportable 07/07/22 20:30 Urine Bacteria 1+ /hpf (NONE) H 07/07/22 20:30 Hyaline Casts 0-4 /lpf H 07/07/22 20:30 Urine Mucus 2+ /hpf 07/07/22 20:30 Nasal Influ A H1 2008 PCR Not detected (NOT DETECT) 07/14/22 01:45 Random Vancomycin 15.1 ug/mL (20.0-40.0) L 07/10/22 02:43 UF Heparin Result Negative (Negative) 07/10/22 02:43 BE UFH Low Dose 0.1 0 % Release 07/10/22 02:43 BE UFH Low Dose 0.5 0 % Release 07/10/22 02:43 BE UFH High Dose 100 0 % Release 07/10/22 02:43 Adenovirus (PCR) Not detected (NOT DETECT) 07/14/22 01:45 C. pneumoniae DNA (PCR) Not detected (NOT DETECT) 07/14/22 01:45 Coronavirus 229E (PCR) Not detected (NOT DETECT) 07/14/22 01:45 Hepatitis A IgM Ab Non-reactive (Nonreactive) 07/15/22 09:04 Hep Bs Antigen Non-reactive (Nonreactive) 07/15/22 09:04 Hep Bs Antibody 3.5 (11.5-1000) L 07/15/22 09:04 Hep B Core Total Ab Non-reactive (Nonreactive) 07/15/22 09:04 Hepatitis C Antibody Non-reactive (Nonreactive) 07/15/22 09:04 Human Metapneumovir PCR Not detected (NOT DETECT) 07/14/22 01:45 Influenza A (H1) PCR Not detected (NOT DETECT) 07/14/22 01:45 Influenza A (H3) PCR Not detected (NOT DETECT) 07/14/22 01:45 Influenza Type A (PCR) Not detected (NOT DETECT) 07/14/22 01:45 Influenza Type B (PCR) Not detected (NOT DETECT) 07/14/22 01:45 M. pneumoniae (PCR) Not detected (NOT DETECT) 07/14/22 01:45 Parainfluenza 1 (PCR) Not detected (NOT DETECT) 07/14/22 01:45 Parainfluenza 2 (PCR) Not detected (NOT DETECT) 07/14/22 01:45 Parainfluenza 3 (PCR) Not detected (NOT DETECT) 07/14/22 01:45 Parainfluenza 4 (PCR) Not detected (NOT DETECT) 07/14/22 01:45 RSV Type A (PCR) Not detected (NOT DETECT) 07/14/22 01:45 RSV Type B (PCR) Not detected (NOT DETECT) 07/14/22 01:45 Entero/Rhino (PCR) Not detected (NOT DETECT) 07/14/22 01:45 SARS-CoV-2 (PCR) Not detected (NOT DETECT) 07/14/22 01:45 Blood Type B Positive 07/21/22 14:10 Rho(D) Type Positive 07/21/22 14:10 Antibody Screen Negative 07/21/22 14:10 Crossmatch See Detail 07/21/22 14:10 Vitals Last Vital Signs Temp 97.8 F 07/24/22 08:00 Pulse 80 07/24/22 08:00 Resp 17 07/24/22 08:00 BP 106/66 07/24/22 08:00 Pulse Ox 97 07/24/22 08:00 O2 Del Method Nasal Cannula 07/23/22 15:50 O2 Flow Rate 2 07/23/22 20:00 FiO2 30 07/24/22 02:58 Discharge Plan Discharge Patient Disposition: Home Health Service Condition: Stable Prescriptions: New midodrine 5 mg Tablet 10 mg PO TID 30 Days Qty: 180 1RF Continued Amitiza 24 mcg capsule 24 mcg PO BID multivitamin Tablet 1 tab PO BEDTIME eszopiclone [Lunesta] 2 mg tablet 2 mg PO BEDTIME hydrocodone-acetaminophen 5-325 mg tablet 1 tab PO BID PRN (Reason: Pain) Breztri Aerosphere 160-9-4.8 mcg/actuation HFA aerosol inhaler 2 inh inhalation BID ropinirole 2 mg tablet 2 mg PO BEDTIME furosemide 40 mg tablet 40 mg PO DAILY levalbuterol tartrate [Xopenex HFA] 45 mcg/actuation HFA aerosol inhaler 2 inh inhalation Q6H Qty: 15 3RF guaifenesin [Mucinex Fast-Max Chest-Congest] 100 mg/5 mL liquid 200 mg PO Q4H PRN (Reason: cough) Qty: 473 3RF lansoprazole [Prevacid] 30 mg capsule,delayed release(DR/EC) 30 mg PO BID Qty: 180 3RF montelukast [Singulair] 10 mg tablet 10 mg PO DAILY Qty: 30 5RF sennosides [senna] 8.6 mg Tablet See Rx Instructions .ROUTE .COMPLEX Rx Instructions: 17.2 mg orally in the morning / 8.6 mg orally in the evening PreserVision AREDS-2 250-90-40-1 mg Capsule 1 tab PO BID ipratropium bromide 21 mcg (0.03 %) spray,non-aerosol 2 spray INTRANASAL TID PRN (Reason: NASAL DRAINAGE) pregabalin [Lyrica] 75 mg Capsule 75 mg PO DAILY nystatin 100,000 unit/mL Suspension 100,000 unit PO BID Rx Instructions: administer 1/2 of dose in each side of the mouth ferrous gluconate 324 mg (38 mg iron) Tablet 324 mg PO DAILY Held propranolol 20 mg tablet 20 mg PO QAM Hold Instructions: Resume on 08/07/22. Discontinued levofloxacin 750 mg tablet 750 mg PO Q48H 14 Days Qty: 7 0RF No Action metoprolol succinate 25 mg tablet extended release 24 hr 12.5 mg PO DAILY pantoprazole 40 mg tablet,delayed release (DR/EC) 40 mg PO DAILY bumetanide 1 mg tablet 1 mg PO DAILY Discharge Orders: Discharge Order (Routine); Ordered 07/24/22 Ordered By: Abilio Maurer Transfer Out of Facility (Order); Ordered 07/15/22 Ordered By: Shelly Turner Other Ambulatory Orders: DME: Oxygen (Order) Location: None Selected Ordered By: Abilio Maurer Referrals: [facility] [Other] (Your appointments are scheduled for , and wednesday. You should arrive on 07/25/22 @ 7:20a.m.) [facility] ([facility]) [Outside] Neeraj Cardoza MD [Primary Care Provider] - 07/29/22 1:40 pm Patient Instructions: Midodrine (By mouth), Sepsis (GEN), Hemodialysis (GEN), Opioid Safety Discharge Attestations Time Spent in Discharge Care*: less than 30 min Quality Metrics Clinical Quality Measures [ No reported AMI, CVA or VTE this stay] Coding Level of Care Code Acute Code for Chg Fwd Diagnoses Acute kidney injury N17.9
== END 2022-07-24 15:50 | disposition home or self-care (01) | DRG 871 ==
LOC: ER 20:49 → ICU 21:56 → MEDSURG 07-19 16:20
PROVIDERS: Hospitalist; Internal Medicine; Student in an Organized Health Care Education/Training Program; Surgery; Admitting Provider Internal Medicine; Emergency Provider Emergency Medicine; PCP Family Medicine; Visit Provider Internal Medicine
PROC: 0JH63XZ Insertion of Tunneled Vascular Access Device into Chest Subcutaneous Tissue and Fascia, Percutaneous Approach (ICD-10-PCS; principal; 2022-07-21 07:00)
DX: A41.9 Sepsis, unspecified organism (principal); I50.33 Acute on chronic diastolic (congestive) heart failure; R65.21 Severe sepsis with septic shock; N17.9 Acute kidney failure, unspecified; I13.0 Hypertensive heart and chronic kidney disease with heart failure and stage 1 through stage 4 chronic kidney disease, or unspecified chronic kidney disease; J44.0 Chronic obstructive pulmonary disease with (acute) lower respiratory infection; D58.9 Hereditary hemolytic anemia, unspecified; E87.20 Acidosis, unspecified; N18.30 Chronic kidney disease, stage 3 unspecified; I48.91 Unspecified atrial fibrillation; J22 Unspecified acute lower respiratory infection; R68.0 Hypothermia, not associated with low environmental temperature; E87.5 Hyperkalemia; D69.6 Thrombocytopenia, unspecified; D63.1 Anemia in chronic kidney disease; Z79.891 Long term (current) use of opiate analgesic; G47.00 Insomnia, unspecified; R25.1 Tremor, unspecified; Z95.0 Presence of cardiac pacemaker; Z87.440 Personal history of urinary (tract) infections; I95.9 Hypotension, unspecified; I73.9 Peripheral vascular disease, unspecified; Z87.01 Personal history of pneumonia (recurrent); Z66 Do not resuscitate; J98.6 Disorders of diaphragm
CPT/HCPCS: 12345; 36415; 36416; 36430; 51702; 71045; 71250; 74176; 74230; 76000; 77001; 80048; 80053; 80069; 80202; 80503; 81001; 82247; 82248; 82962; 83010; 83605; 83615; 83735; 83880; 84100; 84132; 84484; 85007; 85014; 85025; 85045; 85362; 85378; 85384; 85397; 85610; 85730; 86022; 86705; 86706; 86709; 86803; 86850; 86900; 86920; 87040; 87086; 87340; 87486; 87581; 87633; 90935; 92611; 93005; 93308; 94660; 94760; 96372; 96374; 96375; 96376; 97110; 97116; 97161; 97166; 97530; 97535; 99291; C1750; J0612; J0885; J1642; J1644; J1815; J1940; J2405; J2543; J3010; J3370; J7030; J7040; J7050; J7060; P9016; P9045; P9046; P9047; Q3014; Q4081

== ENCOUNTER 2022-07-25 09:46 | Emergency (ER) | payer MEDICARE, MEDICAID, SELFPAY ==
[2022-07-25] VITALS (21 sets, daily range): BP systolic 87–120; BP diastolic 45–65; PULSE 80–83; RESP 14–24; TEMP 36.3; O2SAT 90–100
--- NOTE | 2022-07-25 09:51 | CTR_ITS ---
PROCEDURE INFORMATION: Exam: CT Head Without Contrast Exam date and time: 07/25/2022 10:26 AM Age: 82 years old Clinical indication: Altered mental status/memory loss; Additional info: AMS TECHNIQUE: Imaging protocol: Computed tomography of the head without contrast. Radiation optimization: All CT scans at this facility use at least one of these dose optimization techniques: automated exposure control; mA and/or kV adjustment per patient size (includes targeted exams where dose is matched to clinical indication); or iterative reconstruction. REPORTING DATA: Count of CT and Cardiac NM exams in prior 12 months: This patient has received 7 known CTs and 0 known cardiac nuclear medicine studies in the 12 months prior to the current study. COMPARISON: CT head wo con* [id number] 06/22/2022 12:09 PM RADIATION DOSE METRICS: Total DLP (mGy-cm): 1096.38 FINDINGS: Brain: No acute intracranial hemorrhage. No edema. No mass effect. No focal abnormality in brain parenchyma. Cerebral ventricles: No ventriculomegaly. Paranasal sinuses: There is mild mucosal thickening inferiorly in the right maxillary sinus with no air-fluid levels. Mastoid air cells: There is persistent opacification of a few inferior most bilateral mastoid air cells stable on the left side and slightly increased on the right side. Bones/joints: No acute fracture. No suspicious lytic or sclerotic bone lesions. Soft tissues: Unremarkable. CT/CT head wo con* [id number] IMPRESSION: No CT evidence of acute intracranial hemorrhage, mass or acute infarction.
--- NOTE | 2022-07-25 09:51 | ECG_ITS ---
[facility] Test Date: 2022-07-25 Pat Name: Megan Das Department: Room: Gender: Female Pension Administrator: : 1940 Requested By: Rakesh Bragg Order Number: [id number] Saranya MD: Judy Chase M.D. Measurements Intervals Vian Rate: 80 P: 0 [place]: 0 QRS: -69 QRSD: 162 T: 102 QT: 462 QTc: 533 Interpretive Statements ELECTRONIC VENTRICULAR PACEMAKER ABNORMAL RHYTHM ECG Compared to ECG 07/08/2022 10:02:16 No significant changes Electronically Signed On 07-25-2022 19:23:10 CDT by Judy Chase M.D. [email or web address]
--- NOTE | 2022-07-25 09:51 | XRR_ITS ---
PROCEDURE INFORMATION: Exam: XR Chest Exam date and time: 07/25/2022 10:21 AM Age: 82 years old Clinical indication: Dyspnea; Additional info: Dyspnea/cough TECHNIQUE: Imaging protocol: Radiologic exam of the chest. Views: 1 view. COMPARISON: CR XR chest 1V portable [id number] 07/21/2022, CT chest 07/13/2022 FINDINGS: Tubes, catheters and devices: Dual lumen central venous line placed via the right internal jugular vein terminates in the right atrium. Lungs: No consolidation. Stable dense opacity in the lower half of the right hemithorax compressing the right lung represents a combination of elevated right diaphragm and right pleural effusion as was documented on prior CT chest on 07/13/2022. Pleural spaces: See above in lungs . No pneumothorax. Heart/Mediastinum: There is stable cardiomegaly. Bones/joints: No acute findings. XR/XR chest 1V portable [id number] IMPRESSION: No acute findings. Persistent small volume of the right lung compressed by elevated right diaphragm and right pleural effusion. Stable cardiomegaly.
--- NOTE | 2022-07-25 09:52 | W.ED.GENADLT ---
HPI - General Adult General: Chief complaint: Altered Mental Status Stated complaint: AMS Time Seen by Provider: 07/25/22 09:50 Source: patient Mode of arrival: EMS History of Present Illness: 82-year-old female presents emergency room with complaints of weakness. She was at dialysis to get her usual dialysis run is only her second round of dialysis she became somewhat hypotensive is bradycardic and was directed to the emergency room per EMS report they did not actually do hardly any of her dialysis run did not take any fluid off. She is awake and alert answers questions appropriately but is somewhat fatigued and tired is moderately hypertensive on arrival. Onset (ago): minute(s) Relieving factors: none Exacerbating factors: none Associated symptoms: Deny chest pain, confusion, cough, diaphoresis, decreased appetite, dyspnea, fevers/chills, headache(s), malaise, nausea, rash, palpitations, seizures, short of breath, syncope, vomiting or weakness Review of Systems Const: Denies: fever(s), chills, fatigue, malaise or diaphoresis ENMT: Denies: throat pain, ear or mastoid pain, nasal discharge or nasal congestion Card: Denies: chest pain, palpitations or syncope Resp: Denies: dyspnea GI: Denies: abdominal pain, nausea or vomiting : Denies: flank pain, difficulty voiding, dysuria, urinary frequency or urinary urgency Skin/Breast: Denies: rash Neuro: Denies: headache(s) or confusion PFS ED PFSH: Medical History Acquired elevated hemidiaphragm Acute kidney injury Acute kidney injury superimposed on CKD Acute metabolic encephalopathy Acute respiratory failure with hypoxia and hypercapnia Asthma Atrial fibrillation Autoimmune hemolytic anemia Bicytopenia CAD (coronary artery disease) COPD (chronic obstructive pulmonary disease) Dehydration Diastolic heart failure Dysphagia Essential tremor GERD (gastroesophageal reflux disease) Heart failure HTN (hypertension) Hyperkalemia Hypokalemia Iron deficiency anemia Left ankle swelling LRTI (lower respiratory tract infection) Myoclonus Osteoarthritis Pacemaker Pacemaker syndrome Peripheral arterial disease Pleural effusion Pneumonia Restrictive lung disease Sepsis Septic shock Urinary tract infection Varicose veins of left lower extremity with other complications Surgical History Previous back surgery S/P cardiac pacemaker procedure S/P cataract extraction S/P hysterectomy S/P tubal ligation Family History Father , [place] age 44 Myocardial infarction Social History Smoking and tobacco status: never smoked Physical Exam Const: COMMON NORMALS: no acute distress GENERAL APPEARANCE: cooperative and comfortable ORIENTATION/CONSCIOUSNESS: Yes awake, Yes oriented to person, Yes oriented to place and Yes oriented to time HENMT: COMMON NORMALS: normocephalic, atraumatic and hearing grossly normal bilaterally HEAD & SCALP: normocephalic and atraumatic Resp: COMMON NORMALS: normal respiratory effort, No retractions, No use of accessory muscles and clear to auscultation bilaterally AUSCULTATION: clear to auscultation bilaterally Cardio: COMMON NORMALS: regular rate, regular rhythm and No murmurs present (Cardio) RATE: regular rate RHYTHM: regular rhythm GI: COMMON NORMALS: Soft to palpation and No hepatosplenomegaly present AUSCULTATION: Yes normoactive bowel sounds PALPATION: Yes Soft to palpation, No Tenderness to palpation present (GI), No Guarding due to palpation present (GI) and Yes No hepatosplenomegaly present Extremity: COMMON NORMALS: normal to inspection, capillary refill normal, no clubbing, cyanosis or edema, no calf tenderness and no pedal edema Neuro: SENSORIUM/ORIENTATION: Yes oriented to person, Yes oriented to place and Yes oriented to time Skin: COMMON NORMALS: no rashes or lesions noted GENERAL SKIN EXAM: no rashes or lesions noted OTHER: Ecchymosis on the left chest wall over the tunneled dialysis catheter was placed. There is some streaking dried blood use of the dialysis catheter for dialysis today. Course Vital Signs: Vital signs: Vital Signs Temperature 97.4 F L 07/25/22 09:48 Pulse Rate 80 07/25/22 14:15 Respiratory Rate 15 07/25/22 14:15 Blood Pressure 102/57 07/25/22 14:15 Pulse Oximetry 100 07/25/22 14:15 Oxygen Delivery Me thod Nasal Cannula 07/25/22 11:04 Oxygen Flow Rate 2 07/25/22 11:04 [facility] - General Adult Medical Decision Making Patient is mildly hypotensive we did give small fluid boluses which improved her symptoms. She is awake generally alert she has been very weak. We will decrease her metoprolol. She is already on mitt around for pressure support. We will discharge her home discussed with her at this point on anything acute that we would admit her for follow-up at her next scheduled dialysis run. Discussed with him with her generalized decline and weakness may need to consider different level of care such as a senior care he acknowledges this but is trying to delay would prefer to continue to try to care for her at home. She is anemic as well but this appears to be chronic and is actually improved, that should be also continue to be monitored on an outpatient basis. Medical Records I reviewed the patient's medical records. Lab Data I reviewed the patient's lab results. 07/25/22 10:59 07/25/22 10:59 Radiology Impressions Chest X-Ray 07/25/22 09:51 IMPRESSION: No acute findings. Persistent small volume of the right lung compressed by elevated right diaphragm and right pleural effusion. Stable cardiomegaly. Head CT 07/25/22 09:51 IMPRESSION: No CT evidence of acute intracranial hemorrhage, mass or acute infarction. Laboratory Results WBC 6.7 10^3/uL (4.0-10.0) 07/25/22 10:59 RBC 3.06 10^6/uL (4.1-5.3) L 07/25/22 10:59 Hgb 8.6 g/dL (11.5-15.3) L 07/25/22 10:59 Hct 29.1 % (37.0-47.0) L 07/25/22 10:59 MCV 95.1 fl (81-99) 07/25/22 10:59 MCH 28.1 pg (28.0-34.0) 07/25/22 10:59 MCHC 29.6 g/dL (30.0-36.0) L 07/25/22 10:59 RDW 22.6 % (12.1-15.1) H 07/25/22 10:59 Plt Count 99 10^3/cmm (130-400) L 07/25/22 10:59 MPV 12.9 fL (7.4-10.4) H 07/25/22 10:59 Neut % (Auto) 72.7 % 07/25/22 10:59 Lymph % (Auto) 13.5 % 07/25/22 10:59 Nobles % (Auto) 10.9 % 07/25/22 10:59 Eos % (Auto) 1.6 % 07/25/22 10:59 Baso % (Auto) 0.9 % 07/25/22 10:59 Neut # (Auto) 4.88 10^3/uL (1.8-7.7) 07/25/22 10:59 Lymph # (Auto) 0.9 10^3/uL (0.8-4.8) 07/25/22 10:59 Nobles # (Auto) 0.7 10^3/uL (0.2-0.9) 07/25/22 10:59 Eos # (Auto) 0.1 10^3/uL (0.0-0.8) 07/25/22 10:59 Baso # (Auto) 0.1 10^3/uL (0.0-0.1) 07/25/22 10:59 Nucleated RBC % (auto) 1.0 % 07/25/22 10:59 Nucleated RBCs # 0.1 /100WBC 07/25/22 10:59 PT 17.50 SECONDS (12.1-14.9) H 07/25/22 10:59 INR 1.39 (0.8-1.2) H 07/25/22 10:59 Sodium 141 mmol/L (136-145) 07/25/22 10:59 Potassium 3.5 mmol/L (3.5-5.1) 07/25/22 10:59 Chloride 98 mmol/L (98-107) 07/25/22 10:59 Carbon Dioxide 29 mmol/L (22-29) 07/25/22 10:59 Anion Gap 17.5 (5-19) 07/25/22 10:59 BUN 21 mg/dL (8-23) 07/25/22 10:59 Creatinine 2.2 mg/dL (0.5-0.9) H 07/25/22 10:59 GFR Calculation Not Reportable 07/25/22 10:59 Glucose 94 mg/dL (65-115) 07/25/22 10:59 Calculated Osmolality 295 mOsm/kg (285-295) 07/25/22 10:59 Calcium 9.8 mg/dL (8.5-10.5) 07/25/22 10:59 Total Bilirubin 2.7 mg/dL (0.15-1.2) H 07/25/22 10:59 AST 27 U/L (0-32) 07/25/22 10:59 ALT 9 U/L (0-33) 07/25/22 10:59 Alkaline Phosphatase 88 U/L (35-105) 07/25/22 10:59 Troponin T Baseline 64 ng/L (0-10) H 07/25/22 10:59 Troponin T 120 Minute 62.34 ng/L (0-10) H 07/25/22 13:00 Delta Troponin T -1.66 ABS# (0-10) L 07/25/22 13:00 Total Protein 8.3 g/dL (6.6-8.7) 07/25/22 10:59 Albumin 5.6 g/dL (3.5-5.2) H 07/25/22 10:59 Globulin 2.7 g/dL (1.3-4.6) 07/25/22 10:59 Discharge Plan Discharge Patient Disposition: Home Clinical Impression: Hypotension, ESRD on dialysis Condition: Stable Prescriptions: New Toprol XL 25 mg tablet extended release 24 hr 12.5 mg PO DAILY Qty: 15 0RF Discontinued metoprolol succinate 25 mg tablet extended release 24 hr 25 mg PO DAILY Qty: 90 3RF Hold Instructions: Resume on 08/07/22. No Action Amitiza 24 mcg capsule 24 mcg PO BID multivitamin Tablet 1 tab PO BEDTIME eszopiclone [Lunesta] 2 mg tablet 2 mg PO BEDTIME hydrocodone-acetaminophen 5-325 mg tablet 1 tab PO BID PRN (Reason: Pain) Breztri Aerosphere 160-9-4.8 mcg/actuation HFA aerosol inhaler 2 inh inhalation BID ropinirole 2 mg tablet 2 mg PO BEDTIME furosemide 40 mg tablet 40 mg PO DAILY levalbuterol tartrate [Xopenex HFA] 45 mcg/actuation HFA aerosol inhaler 2 inh inhalation Q6H Qty: 15 3RF guaifenesin [Mucinex Fast-Max Chest-Congest] 100 mg/5 mL liquid 200 mg PO Q4H PRN (Reason: cough) Qty: 473 3RF lansoprazole [Prevacid] 30 mg capsule,delayed release(DR/EC) 30 mg PO BID Qty: 180 3RF montelukast [Singulair] 10 mg tablet 10 mg PO DAILY Qty: 30 5RF sennosides [senna] 8.6 mg Tablet See Rx Instructions .ROUTE .COMPLEX Rx Instructions: 17.2 mg orally in the morning / 8.6 mg orally in the evening PreserVision AREDS-2 250-90-40-1 mg Capsule 1 tab PO BID ipratropium bromide 21 mcg (0.03 %) spray,non-aerosol 2 spray INTRANASAL TID PRN (Reason: NASAL DRAINAGE) pregabalin [Lyrica] 75 mg Capsule 75 mg PO DAILY propranolol 20 mg tablet 20 mg PO QAM Hold Instructions: Resume on 08/07/22. nystatin 100,000 unit/mL Suspension 100,000 unit PO BID Rx Instructions: administer 1/2 of dose in each side of the mouth ferrous gluconate 324 mg (38 mg iron) Tablet 324 mg PO DAILY midodrine 5 mg Tablet 10 mg PO TID 30 Days Qty: 180 1RF pantoprazole 40 mg tablet,delayed release (DR/EC) 40 mg PO DAILY bumetanide 1 mg tablet 1 mg PO DAILY Discharge Orders: Discharge ED (Routine); Ordered 07/25/22 Ordered By: Rakesh Sharma Referrals: Neeraj Cardoza MD [Primary Care Provider] - Discharge Diet: Usual diet Discharge Activity: Increase activity as tolerated Patient Instructions: Opioid Safety, Pain Management Activity Restrictions/Additional Instructions: You were seen today for hypotension. Recommend that you decrease your metoprolol to 12.5 p.o. daily. Follow-up with your regular doctor next week. Coding Level of Care Code ED Manager Spanish for Arturo Granados
[2022-07-25 11:16] LABS: Basophils # 0.1 10^3/uL (0.0-0.1); Basophils % 0.9 %; Eosinophils # 0.1 10^3/uL (0.0-0.8); Eosinophils % 1.6 %; Hematocrit 29.1 % (37.0-47.0); Hemoglobin 8.6 g/dL (11.5-15.3); Lymphocytes # 0.9 10^3/uL (0.8-4.8); Lymphocytes % 13.5 %; Mean Corpuscular HGB Conc 29.6 g/dL (30.0-36.0); Mean Corpuscular Hemoglobin 28.1 pg (28.0-34.0); Mean Corpuscular Volume 95.1 fl (81-99); Mean Platelet Volume 12.9 fL (7.4-10.4); Monocytes # 0.7 10^3/uL (0.2-0.9); Monocytes % 10.9 %; Neutrophils # 4.88 10^3/uL (1.8-7.7); Neutrophils % 72.7 %; Nucleated Red Blood Cells # 0.1 /100WBC; Red Blood Count 3.06 10^6/uL (4.1-5.3); Red Cell Distribution Width 22.6 % (12.1-15.1); White Blood Count 6.7 10^3/uL (4.0-10.0)
[2022-07-25 11:19] LABS: Platelet Count 99 10^3/cmm (130-400)
[2022-07-25 11:30] LABS: INR 1.39 (0.8-1.2)
[2022-07-25 11:39] LABS: Alanine Aminotransferase 9 U/L (0-33); Albumin Level 5.6 g/dL (3.5-5.2); Alkaline Phosphatase 88 U/L (35-105); Anion Gap 17.5 (5-19); Aspartate Amino Transferase 27 U/L (0-32); Blood Urea Nitrogen 21 mg/dL (8-23); Calcium 9.8 mg/dL (8.5-10.5); Carbon Dioxide 29 mmol/L (22-29); Chloride 98 mmol/L (98-107); Globulin 2.7 g/dL (1.3-4.6); Glucose 94 mg/dL (65-115); Osmolality Calculated 295 mOsm/kg (285-295); Potassium 3.5 mmol/L (3.5-5.1); Sodium 141 mmol/L (136-145); Total Bilirubin 2.7 mg/dL (0.15-1.2); Total Protein 8.3 g/dL (6.6-8.7)
[2022-07-25 11:41] LABS: Troponin(5th) Baseline 64 ng/L (0-10)
--- NOTE | 2022-07-25 11:51 | ECG_ITS ---
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 Measurements Intervals [place] Rate: 80 P: 0 CT: 0 QRS: -70 QRSD: 205 T: 107 QT: 493 QTc: 569 Interpretive Statements ELECTRONIC VENTRICULAR PACEMAKER ABNORMAL RHYTHM ECG Compared to ECG 07/25/2022 10:04:23 No significant changes Electronically Signed On 07-25-2022 19:31:01 CDT by Judy Chase M.D. [id number]
[2022-07-25] MEDS: sodium chloride 0.9% 250 ML IV (12:08)
[2022-07-25 13:26] LABS: Troponin 5 2HR 62.34 ng/L (0-10)
[2022-07-25 13:35] LABS: Troponin 5 2HR Delta -1.66 ABS# (0-10)
== END 2022-07-25 14:49 | disposition home or self-care (01) ==
PROVIDERS: Emergency Provider Family Medicine; PCP Family Medicine
DX: I95.9 Hypotension, unspecified (principal); I13.2 Hypertensive heart and chronic kidney disease with heart failure and with stage 5 chronic kidney disease, or end stage renal disease; N18.6 End stage renal disease; I50.30 Unspecified diastolic (congestive) heart failure; Z99.2 Dependence on renal dialysis; I25.10 Atherosclerotic heart disease of native coronary artery without angina pectoris; J44.9 Chronic obstructive pulmonary disease, unspecified; Z95.0 Presence of cardiac pacemaker
CPT/HCPCS: 70450; 71045; 80053; 84484; 85025; 85610; 93005; 96360; 99285; J7050

== ENCOUNTER 2022-07-27 12:54 | Inpatient (IN) | payer MEDICARE, MEDICAID, SELFPAY ==
[2022-07-27] VITALS (30 sets, daily range): BP systolic 64–121; BP diastolic 52–81; PULSE 80–92; RESP 16–32; TEMP 34.5–34.6; O2SAT 79–100; BMI 29.9
--- NOTE | 2022-07-27 13:01 | XRR_ITS ---
PROCEDURE INFORMATION: Exam: XR Chest Exam date and time: 07/27/2022 1:14 PM Age: 82 years old Clinical indication: Cough and other: Low BP TECHNIQUE: Imaging protocol: Radiologic exam of the chest. Views: 1 view. COMPARISON: CR (CHEST, ) 07/25/2022 10:21 AM FINDINGS: Tubes, catheters and devices: Right-sided central venous catheter. Left-sided pacemaker. Lungs: Moderate to large right pleural effusion with right lung volume loss with associated atelectasis versus infiltrate. Pleural spaces: See Lungs finding. Heart/Mediastinum: Cardiomegaly. Bones/joints: Unremarkable. XR/XR chest 1V [id number] IMPRESSION: 1. Moderate to large right pleural effusion with right lung volume loss with associated atelectasis versus infiltrate. 2. Cardiomegaly. 3. Right-sided central venous catheter. 4. Left-sided pacemaker.
--- NOTE | 2022-07-27 13:11 | PC.NURSE ---
BP 74/52. PATIENT PLACED IN [place]. [place] NEW AND JUST PLACED BY HOME HEALTH. NO URINE OUTPUT. PROVIDER NOTIFIED OF FINDINGS.
--- NOTE | 2022-07-27 13:20 | ECG_ITS ---
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 Measurements Intervals [place] Rate: 82 P: 0 FL: 0 QRS: -72 QRSD: 200 T: 111 QT: 476 QTc: 557 Interpretive Statements ELECTRONIC VENTRICULAR PACEMAKER ABNORMAL RHYTHM ECG Compared to ECG 07/25/2022 11:56:10 No significant changes Electronically Signed On 07-28-2022 0:09:52 CDT by Judy Chase M.D. [id number]
--- NOTE | 2022-07-27 14:07 | ED_ITS ---
HPI - Weakness General: Chief complaint: Weakness Stated complaint: low bp Time Seen by Provider: 07/27/22 13:01 Source: patient (Minimal) and family Mode of arrival: EMS Limitations: other (Extreme illness, fatigue) History of Present Illness: Patient presents to the emergency department brought by EMS from her home for evaluation and treatment of low blood pressure and decreased urinary output. Primo bhakta has multiple chronic disease processes and was recently in the ICU for almost 3 weeks. Patient is a dialysis patient and on Wednesday was at dialysis and required some fluid replacement due to low blood pressure. The family brought her in on 07/25 to the emergency department. Evaluation revealed she was stable for discharge home. Patient was instructed to decrease her blood pressure medication but, indicates that a daughter was trying to help them out today and patient received a full dose of her beta-tish medication today. The home health nurse was at their home today and stated her blood pressure was too low and recommended they bring her in for evaluation. Patient is able to tell me that she feels like she is having difficulty breathing. indicates she has not had any urinary output since yesterday, he believes. Review of Systems General: Reports: 10 or more systems reviewed and unremarkable except in HPI and below PFSH ED PFSH: Medical History Acquired elevated hemidiaphragm Acute kidney injury Acute kidney injury superimposed on CKD Acute metabolic encephalopathy Acute respiratory failure with hypoxia and hypercapnia Asthma Atrial fibrillation Autoimmune hemolytic anemia Bicytopenia CAD (coronary artery disease) COPD (chronic obstructive pulmonary disease) Dehydration Diastolic heart failure Dysphagia Essential tremor GERD (gastroesophageal reflux disease) Heart failure HTN (hypertension) Hyperkalemia Hypokalemia Iron deficiency anemia Left ankle swelling LRTI (lower respiratory tract infection) Myoclonus Osteoarthritis Pacemaker Pacemaker syndrome Peripheral arterial disease Pleural effusion Pneumonia Restrictive lung disease Sepsis Septic shock Urinary tract infection Varicose veins of left lower extremity with other complications Surgical History Previous back surgery S/P cardiac pacemaker procedure S/P cataract extraction S/P hysterectomy S/P tubal ligation Family History Father , [place] age 44 Myocardial infarction Social History Smoking and tobacco status: never smoked Physical Exam Const: COMMON NORMALS: alert (Follows visual and auditory stimuli in the room.); apparent distress Eye: COMMON NORMALS: Equal, round and reactive pupils present, EOMs intact mica aterally and conjunctivae normal CONJUNCTIVA: Yes conjunctivae normal PUPIL: Yes Equal, round and reactive pupils present Lymph: LYMPHATIC: no lymphadenopathy noted Resp: COMMON NORMALS: negative for normal respiratory effort (Shallow ez athing. No appreciable lung sounds on the right side.) Cardio: COMMON NORMALS: regular rate RATE: regular rate : COMMON NORMALS: Yes no CVA tenderness BLADDER/KIDNEY EXAM: Yes no CVA tenderness Back/Pelvis: COMMON NORMALS: no CVA tenderness, thoracic and lumbar spine normal to inspection and thoraco-lumbar ROM normal Extremity: COMMON NORMALS: negative for no pedal edema Neuro: SENSORIUM/ORIENTATION: Yes alert (Follows visual and auditory stimuli in the room.) Skin: COMMON NORMALS: no rashes or lesions noted and turgor normal NARRATIVE SKIN EXAM: Large areas of bruising on the upper extremities from previous IV sites GENERAL SKIN EXAM: no rashes or lesions noted and turgor normal Course 2 Vital Signs: Vital signs: Vital Signs Pulse Rate 80 07/27/22 17:15 Respiratory Rate 20 H 07/27/22 16:30 Blood Pressure 110/79 07/27/22 16:30 Pulse Oximetry 98 07/27/22 17:15 Oxygen Delivery Me thod Nasal Cannula 07/27/22 16:30 Oxygen Flow Rate 4 07/27/22 16:30 Fraction of Inspir ed Oxygen 35 07/27/22 17:15 MDM - Weakness Medical Decision Making Patient presents hypotensive. Given her history of CHF I did speak with Dr. Robledo regarding concerns for fluid bolus. He did recommend Levophed. Given the patient's recent sepsis evaluation we did repeat these labs and obtained a chest x-ray. Chest x-ray shows a moderate to large right-sided pleural effusion. They have tried multiple times to gain IV access including ultrasound access but, have not been successful at this time. Patient's blood pressure is continuing to remain low-70s over 50s. After further discussion with Dr. Robledo, it is obvious patient will be admitted-most likely through the ICU. Consult with Dr. Morgan. He requests placement of a central line, obtaining an ABG, and procalcitonin. He also requests I reach out to Dr. Evans regarding the right-sided pleural effusion as well as nephrology given the patient's dialysis regimen. Dr Evans appears quite familiar with this patient. He indicated that the patient could benefit from BiPAP and, around this time, respiratory came in with the ABG results and stated they had placed the patient on BiPAP. He indicated he would be following this patients inpatient admission. I also reached out to nephrology and spoke with Dr. Fritz. She was also familiar with this patient. She indicated that the patient did not seem to be responding well to the dialysis and, might benefit from other treatment. She indicated she would evaluate the patient during her inpatient admission as well. Dr. Morgan visited with the patient at bedside here in the emergency department. Transferred to the ICU coordinated and we will defer care and further intervention to the hospitalist services at this time. Differential Diagnosis Likely acute myocardial infarction, anemia, sepsis and dehydration (Kidney failure) Lab Data 07/27/22 13:42 07/27/22 13:42 Radiology Impressions Chest X-Ray 07/27/22 13:01 IMPRESSION: 1. Moderate to large right pleural effusion with right lung volume loss with associated atelectasis versus infiltrate. 2. Cardiomegaly. 3. Right-sided central venous catheter. 4. Left-sided pacemaker. Laboratory Results WBC 7.4 10^3/uL (4.0-10.0) 07/27/22 13: RBC 2.86 10^6/uL (4.1-5.3) L 07/27/22 13:42 Hgb 8.3 g/dL (11.5-15.3) L 07/27/22 13:42 Hct 28.2 % (37.0-47.0) L 07/27/22 13:42 MCV 98.6 fl (81-99) 07/27/22 13:42 MCH 29.0 pg (28.0-34.0) 07/27/22 13: MCHC 29.4 g/dL (30.0-36.0) L 07/27/22 13:42 RDW 22.9 % (12.1-15.1) H 07/27/22 13:42 Plt Count 105 10^3/cmm (130-400) L 07/27/22 13:42 MPV 12.9 fL (7.4-10.4) H 07/27/22 13:42 Neut % (Auto) 71.1 % 07/27/22 13:42 Lymph % (Auto) 16.1 % 07/27/22 13:42 [place] % (Auto) 9.6 % 07/27/22 13:42 Eos % (Auto) 1.2 % 07/27/22 13:42 Baso % (Auto) 0.9 % 07/27/22 13:42 Neut # (Auto) 5.26 10^3/uL (1.8-7.7) 07/27/22 13:42 Lymph # (Auto) 1.2 10^3/uL (0.8-4.8) 07/27/22 13:42 [place] # (Auto) 0.7 10^3/uL (0.2-0.9) 07/27/22 13:42 Eos # (Auto) 0.1 10^3/uL (0.0-0.8) 07/27/22 13:42 Baso # (Auto) 0.1 10^3/uL (0.0-0.1) 07/27/22 13:42 Nucleated RBC % (auto) 0.8 % 07/27/22 13:42 Nucleated RBCs # 0.1 /100WBC 07/27/22 13:42 ESR < 1 mm/hr (0-15) 07/27/22 13:42 D-Dimer 6.00 ug/mIFEU (0-0.59) H 07/27/22 13:42 Specimen Type Arterial 07/27/22 16:39 Sample Site Radial, right 07/27/22 16:39 ABG pH 7.20 (7.35-7.45) L 07/27/22 16:39 ABG pCO2 72.6 mmHg (35-45) H* 07/27/22 16:39 ABG pO2 117.0 mmHg (80.0-100.0) H 07/27/22 16:39 ABG HCO3 28.4 mmol/L (22-26) H 07/27/22 16:39 ABG O2 Saturation 99.0 07/27/22 16:39 ABG Base Excess -0.4 mmol/L (-2.0-2.0) 07/27/22 16:39 Ernesto Test Pos 07/27/22 16:39 A-a O2 Gradient 6.7 mmHg (5-10) 07/27/22 16:39 Hematocrit 27.5 % (37-47) L 07/27/22 16:39 Hgb O2 Saturation 96.2 % (95-100) 07/27/22 16:39 Carboxyhemoglobin 1.9 %THgb (0.4-20.1) 07/27/22 16:39 Methemoglobin 0.9 % (0.4-1.5) 07/27/22 16:39 Total Hemoglobin 9.0 g/dL (12-16) L 07/27/22 16:39 Sodium 141.0 mmol/L (131-143) 07/27/22 16:39 Potassium 3.9 mmol/L (3.5-5.0) 07/27/22 16:39 Glucose 129.0 mg/dL (70-115) H 07/27/22 16:39 Ionized Calcium 1.4 mmol/L (1.1-1.4) 07/27/22 16:39 O2 Delivery Device Nc 07/27/22 16:39 O2 Liters/Min 4.0 % 07/27/22 16:39 FiO2 36.0 % 07/27/22 16:39 [place] Supervisor ID Monro 07/27/22 16:39 Sodium 139 mmol/L (136-145) 07/27/22 13:42 Potassium 4.1 mmol/L (3.5-5.1) 07/27/22 13:42 Chloride 98 mmol/L (98-107) 07/27/22 13:42 Carbon Dioxide 28 mmol/L (22-29) 07/27/22 13:42 Anion Gap 17.1 (5-19) 07/27/22 13:42 BUN 42 mg/dL (8-23) H 07/27/22 13:42 Creatinine 4.4 mg/dL (0.5-0.9) H 07/27/22 13:42 GFR Calculation Not Reportable 07/27/22 13:42 Glucose 119 mg/dL (65-115) H 07/27/22 13:42 Calculated Osmolality 300 mOsm/kg (285-295) H 07/27/22 13:42 Lactic Acid 1.4 mmol/L (0.5-2.2) 07/27/22 15:00 Calcium 9.9 mg/dL (8.5-10.5) 07/27/22 13:42 Total Bilirubin 1.7 mg/dL (0.15-1.2) H 07/27/22 13:42 AST 24 U/L (0-32) 07/27/22 13:42 ALT 8 U/L (0-33) 07/27/22 13:42 Alkaline Phosphatase 97 U/L (35-105) 07/27/22 13:42 Troponin T Baseline 65 ng/L (0-10) H 07/27/22 13:42 Troponin T 120 Minute 61.90 ng/L (0-10) H 07/27/22 15:00 Delta Troponin T -3.10 ABS# (0-10) L 07/27/22 15:00 C-Reactive Protein 23.9 mg/L (0.0-4.9) H 07/27/22 13:42 NT-Pro-B Natriuret Pep 13037 pg/mL (0-450) H 07/27/22 13:42 Total Protein 7.5 g/dL (6.6-8.7) 07/27/22 13:42 Albumin 4.9 g/dL (3.5-5.2) 07/27/22 13:42 Globulin 2.6 g/dL (1.3-4.6) 07/27/22 13:42 Procalcitonin 2.57 ng/mL (0-0.5) H 07/27/22 13:42 Discharge Plan Discharge Patient Disposition: Admitted As Inpatient Clinical Impression: Sepsis, Kidney failure, Pleural effusion Condition: Stable Coding Level of Care Code ED Video Specialist for Arturo Granados
[2022-07-27 14:08] LABS: Basophils # 0.1 10^3/uL (0.0-0.1); Basophils % 0.9 %; Eosinophils # 0.1 10^3/uL (0.0-0.8); Eosinophils % 1.2 %; Hematocrit 28.2 % (37.0-47.0); Hemoglobin 8.3 g/dL (11.5-15.3); Lymphocytes # 1.2 10^3/uL (0.8-4.8); Lymphocytes % 16.1 %; Mean Corpuscular HGB Conc 29.4 g/dL (30.0-36.0); Mean Corpuscular Volume 98.6 fl (81-99); Mean Platelet Volume 12.9 fL (7.4-10.4); Monocytes # 0.7 10^3/uL (0.2-0.9); Monocytes % 9.6 %; Neutrophils # 5.26 10^3/uL (1.8-7.7); Neutrophils % 71.1 %; Nucleated Red Blood Cells # 0.1 /100WBC; Nucleated Red Blood Cells % 0.8 %; Platelet Count 105 10^3/cmm (130-400); Red Blood Count 2.86 10^6/uL (4.1-5.3); Red Cell Distribution Width 22.9 % (12.1-15.1); White Blood Count 7.4 10^3/uL (4.0-10.0)
[2022-07-27 14:31] LABS: Erythrocyte Sedimentation Rate < 1 mm/hr (0-15)
[2022-07-27 14:34] LABS: Troponin(5th) Baseline 65 ng/L (0-10)
[2022-07-27 14:44] LABS: Alanine Aminotransferase 8 U/L (0-33); Albumin Level 4.9 g/dL (3.5-5.2); Alkaline Phosphatase 97 U/L (35-105); Anion Gap 17.1 (5-19); Aspartate Amino Transferase 24 U/L (0-32); Blood Urea Nitrogen 42 mg/dL (8-23); C Reactive Protein 23.9 mg/L (0.0-4.9); Calcium 9.9 mg/dL (8.5-10.5); Carbon Dioxide 28 mmol/L (22-29); Chloride 98 mmol/L (98-107); Globulin 2.6 g/dL (1.3-4.6); Glucose 119 mg/dL (65-115); NT Pro B Type Natriuretic Pept 23363 pg/mL (0-450); Osmolality Calculated 300 mOsm/kg (285-295); Potassium 4.1 mmol/L (3.5-5.1); Sodium 139 mmol/L (136-145); Total Bilirubin 1.7 mg/dL (0.15-1.2); Total Protein 7.5 g/dL (6.6-8.7)
[2022-07-27 15:44] LABS: Lactic Sepsis W/Reflex 1.4 mmol/L (0.5-2.2)
--- NOTE | 2022-07-27 16:42 | USCV_ITS ---
Megan Das Age: 82 Gender: F : 1940 Exam Date: 07/27/2022 17:56 Ordering Phys: Nickolas Morgan MD Technologist: DEJAN [place] [facility] [place]: SOB COPD asthma. 2-3+ tricuspid regurgitation, HX CHF HISTORY: SOB COPD asthma. 2-3+ tricuspid regurgitation, HX CHF PROCEDURES: Venous duplex imaging was performed in bilateral lower extremities. The following venous structures were evaluated: common femoral vein, profunda vein, proximal portion of the greater saphenous vein, superficial femoral vein, and the popliteal vein. In addition, the posterior tibial veins were evaluated. FINDINGS: Technically limited by body habitus. Small caliber CFV's maybe be due to prior DVT. No acute DVT seen within either lower extremity. Mild bilateral chronic superficial thrombophlebitis. CONCLUSIONS No acute DVT. Technically limited study. Chronic bilateral thrombophlebitis. Dr. Georgina Bauamn DO (Electronically Signed) Final Date: 28 Jul 2022 07:42 S
--- NOTE | 2022-07-27 16:42 | CTR_ITS ---
PROCEDURE INFORMATION: Exam: CTA Chest With Contrast Exam date and time: 07/27/2022 9:21 PM Age: 82 years old Clinical indication: Shortness of breath; Prior surgery; Surgery date: 6+ months; Surgery type: Pacer. Hysterectomy; Patient HX: Septic shock. SOB with RT pleural effusion. Javon. History of copd, chf, and ckd. ; Additional info: Shock, right pleural effusion TECHNIQUE: Imaging protocol: Computed tomographic angiography of the chest with contrast. 3D rendering (Not supervised by radiologist): MIP and/or 3D reconstructed images were created by the technologist. Radiation optimization: All CT scans at this facility use at least one of these dose optimization techniques: automated exposure control; mA and/or kV adjustment per patient size (includes targeted exams where dose is matched to clinical indication); or iterative reconstruction. Contrast material: OMNI 350; Contrast volume: 100 ml; Contrast route: INTRAVENOUS (IV); REPORTING DATA: Count of CT and Cardiac NM exams in prior 12 months: This patient has received 8 known CTs and 0 known cardiac nuclear medicine studies in the 12 months prior to the current study. COMPARISON: [place] [id number] 07/13/2022 3:03 PM RADIATION DOSE METRICS: Total DLP (mGy-cm): 1291.19 FINDINGS: Tubes, catheters and devices: Left-sided cardiac pacing device. Pulmonary arteries: No strong evidence of main or lobar PE. The exam is limited peripherally due to motion and compressive atelectasis/crowding in places. Aorta: Ascending thoracic aorta measures up to 4.2 cm. Moderate right hemidiaphragm elevation. Veins: Right IJ PermCath in place. Lungs: Mxsbm-palnzge-qmco-left areas of mid to lower lung atelectasis or developing pneumonia. Mild COPD. Mild venous congestion. RUL atelectasis or other mass lesion; in this area, the arteries are particularly difficult to evaluate due to crowding and loss of volume. Scattered areas of bilateral mid to upper lung atelectasis, edema, or pneumonitis. Pleural spaces: Moderate right mildly complex pleural effusion. No pneumothorax. Trace left pleural effusion. Heart: The heart is quite large. Lymph nodes: No bulky hilar or mediastinal lymphadenopathy noted. Diaphragm: Small hiatal hernia. Bones/joints: Zwxb-wx-kzjiqhdc spine DJD. Soft tissues: Unremarkable. Other findings: Advanced diffuse vascular calcification noted. Abdomen/pelvis CT pending, see that report. PROCEDURE INFORMATION: Exam: CT Abdomen And Pelvis With Contrast Exam date and time: 07/27/2022 9:21 PM Age: 82 years old Clinical indication: Shortness of breath; Prior surgery; Surgery date: 6+ months; Surgery type: Pacer. Hysterectomy; Patient HX: Septic shock. SOB with RT pleural effusion. Javon. History of copd, chf, and ckd. ; Additional info: Shock, right pleural effusion TECHNIQUE: Imaging protocol: Computed tomography of the abdomen and pelvis with contrast. Radiation optimization: All CT scans at this facility use at least one of these dose optimization techniques: automated exposure control; mA and/or kV adjustment per patient size (includes targeted exams where dose is matched to clinical indication); or iterative reconstruction. Contrast material: OMNI 350; Contrast volume: 100 ml; Contrast route: INTRAVENOUS (IV); REPORTING DATA: Count of CT and Cardiac NM exams in prior 12 months: This patient has received 8 known CTs and 0 known cardiac nuclear medicine studies in the 12 months prior to the current study. COMPARISON: [place] [id number] 07/13/2022 3:03 PM RADIATION DOSE METRICS: Total DLP (mGy-cm): 1291.19 FINDINGS: Tubes, catheters and devices: Weber catheter present. Lungs: Moderate right and trace left effusions with areas of mainly bilateral mid to lower lung atelectasis or developing pneumonia. See above. Recommend 1-2 month follow-up. Liver: Unremarkable. No enhancing mass. Gallbladder and bile ducts: A few gallstones are visualized. Pancreas: Atrophic pancreas. No enhancing mass is visualized. Spleen: The spleen is not enlarged. No suspicious enhancing mass is noted. Adrenal glands: Normal. No mass. Kidneys and ureters: The kidneys are lobular and atrophic. A few bilateral renal cysts measure up to nearly 3 cm. Few tiny kidney stones as well. No hydronephrosis. No enhancing renal mass noted. Stomach and bowel: The colon is rather fecal filled. No small bowel dilation. Appendix: No evidence of appendicitis. Intraperitoneal space: There is lqzi-am-avuotnzy diffuse ascites. Diffuse kvgu-pv-qqsfpnrv mesenteric edema. Vasculature: Advanced diffuse vascular calcification noted. Portal vein is patent. Lymph nodes: No enlarged lymph nodes. Urinary bladder: The bladder is collapsed. Reproductive: Unremarkable as visualized. Bones/joints: Advanced spine DJD. Diffuse osteopenia. Soft tissues: Diffuse anasarca. CT/CT angio chest w abd pel w con IMPRESSION: 1. No definite PE. The exam is challenging, as above. 2. RUL atelectasis or other mass lesion; in this area, the arteries are particularly difficult to evaluate due to crowding and loss of volume. 3. Moderate right and trace left effusions with areas of mainly bilateral mid to lower lung atelectasis or developing pneumonia. See above. Recommend 1-2 month follow-up. 4. Multiple chronic findings. Large heart with mild venous congestion. 5. Abdomen/pelvis CT report below. IMPRESSION: 1. No small bowel obstruction, abscess or free air. 2. Diffuse 3rd spacing of fluid with yjfx-pj-pkuwsefq ascites, anasarca, and mesenteric edema. 3. Cholelithiasis, fecal filled colon, and other chronic findings. 4. See above chest CT report for lung findings. COMMENTS: Consistent with the [employer]'s Incidental Findings Committee white paper (J Am Lucinda Radiol 2018): Any incidental renal lesion less than 1 cm or classified as too small to characterize, or any incidental cystic renal lesion characterized as simple-appearing, is likely benign. No follow-up imaging is recommended for these lesions per consensus recommendations based on imaging criteria.
[2022-07-27 16:52] LABS: ABG PCO2 72.6 mmHg (35-45); Alveolar-Arterial Oxygen Gradi 6.7 mmHg (5-10); Arterial Blood Gas Hematocrit 27.5 % (37-47); Base Excess ABG -0.4 mmol/L (-2.0-2.0); Blood Gas Allen Test Pos; Blood Gas Operator Identificat MONRO; Blood Gas Sample Site Radial, right; Blood Gas Sample Type Arterial; Carboxyhemoglobin 1.9 %THgb (0.4-20.1); HCO3 ABG 28.4 mmol/L (22-26); HGB O2 Sat 96.2 % (95-100); Ionized Calcium Level - ABG 1.4 mmol/L (1.1-1.4); Methemoglobin 0.9 % (0.4-1.5); Oxygen Device NC; Potassium Level - ABG 3.9 mmol/L (3.5-5.0)
--- NOTE | 2022-07-27 16:54 | PC.PHAR ---
PT WAS SEEN IN ER ON 07/25/22 - PT WAS TAKING METOPROLOL 25 MG ER DAILY- DISCHARGE SHOWS SHE WAS SUPPOSED TO CHANGE TO 12.5 MG DAILY- PTS STS HE IS STILL GIVING 25MG DAILY BECAUSE INSURANCE HAS NOT FILLED THE 12.5 MG SCRIPT YET
[2022-07-27 17:05] LABS: Procalcitonin 2.57 ng/mL (0-0.5)
--- NOTE | 2022-07-27 17:18 | CTR_ITS ---
PROCEDURE INFORMATION: Exam: CT Head Without Contrast Exam date and time: 07/27/2022 9:18 PM Age: 82 years old Clinical indication: Altered mental status/memory loss; Patient HX: Severe lethargy. Septic shock. ; Additional info: AMS TECHNIQUE: Imaging protocol: Computed tomography of the head without contrast. Radiation optimization: All CT scans at this facility use at least one of these dose optimization techniques: automated exposure control; mA and/or kV adjustment per patient size (includes targeted exams where dose is matched to clinical indication); or iterative reconstruction. REPORTING DATA: Count of CT and Cardiac NM exams in prior 12 months: This patient has received 8 known CTs and 0 known cardiac nuclear medicine studies in the 12 months prior to the current study. COMPARISON: CT head wo con* [id number] 07/25/2022 10:26 AM RADIATION DOSE METRICS: Total DLP (mGy-cm): 1105.08 FINDINGS: Brain: Normal. No hemorrhage. Unremarkable white matter. No mass effect. Cerebral ventricles: No ventriculomegaly. Paranasal sinuses: Visualized sinuses are unremarkable. No fluid levels. Mastoid air cells: Visualized mastoid air cells are well aerated. Bones/joints: Unremarkable. No acute fracture. Soft tissues: Unremarkable. CT/CT head wo con* [id number] IMPRESSION: No acute intracranial abnormality.
--- NOTE | 2022-07-27 17:18 | US_ITS ---
WS: [id number] RIGHT UPPER QUADRANT ULTRASOUND HISTORY: ruq pain COMPARISON: 10/02/2021, CT 07/27/2022 Liver: 16.0 cm in length. Poorly visualized. No mass or abnormality identified. Portal Vein: Bidirectional flow in the portal vein. Gallbladder: Normally distended gallbladder. There is a stone within the gallbladder measuring up to 1.5 cm. Cholelithiasis has been previously described. Diffuse gallbladder wall thickening measuring u p to 1.0 cm. No pericholecystic fluid. There is adjacent ascites. CBD: 0.5 cm Pancreas: Obscured by bowel gas. Right kidney: 8.8 cm in length. Small caliber kidney. No obstruction. Very mild cortical thinning. Aorta and IVC: Poorly visualized. Moderate amount of ascites throughout the abdomen. US/US gall bladder [id number] IMPRESSION: 1. Moderate ascites. 2. Cholelithiasis with diffuse gallbladder wall thickening. Gallbladder wall t hickening is diffuse and may be related to ascites and hepatocellular disease. 3. No bile duct dilatation. 4. Bidirectional main portal vein.
[2022-07-27 17:24] LABS: Cortisol Random 18.22 ug/dL (2.47-19.5)
--- NOTE | 2022-07-27 17:24 | PC.NURSE ---
PROVIDER NOTIFIED OF LEVOPHED IN LEFT ARM INFILTRATED. PROVIDER STATED TO LET ICU STAFF KNOW OF FINDINGS AND TO MONITOR IV SITE FOR NEEDS.
[2022-07-27 17:25] LABS: Magnesium 2.5 mg/dL (1.7-2.3); Thyroid Stimulating Hormone 4.65 uIU/mL (0.27-4.20)
--- NOTE | 2022-07-27 17:28 | PM.HP ---
Providers/Chief Complaint Primary Care Provider: Neeraj Cardoza MD Chief Complaint: low bp History of Present Illness Megan Das is a 82 year old female with a past medical history of ischemic cardiomyopathy, systolic and diastolic CHF, history of moderate to severe tricuspid valve regurg, history of chronic atrial fibrillation not on anticoagulation?, History of sick sinus syndrome status post pacemaker placement, history of peptic ulcer disease, history of hypertension, asthma, moderate pulmonary hypertension, history of COPD, apparently she has had a hospitalization at [facility] for anemia receiving 2 units PRBC has a history of chronic right hemidiaphragmatic elevation, status post bronchoscopy, history of obesity, history of deconditioning, history of chronic aspiration causing endobronchial mucosal edema, trouble clearing her airway secretions history of poor esophageal motility, history of BiPAP dependence at home, history of poor airway clearance, she recently had a prolonged hospitalization which was complicated with septic shock, worsening her renal function requiring dialysis, who presents to [facility] due to increased confusion, poor appetite, decreased mobility, and low blood pressures. Currently patient is alert to person, not to place, not to time she can follow some commands such as squeezing my fingers, but cannot really answer questions, at times she stares off into the distance, and does not answer questions. Most of the history was provided by patient's at bedside. He tells me that before her hospitalization last time, she used to ambulate with a walker, she has had some cognitive decline, episodes of confusion, she has had some poor appetite for some time. After she hospitalized she ambulates a bit but is mostly bedbound, her appetite has drastically declined, she has not had any falls her mentation was also declined, she can follow commands, but does have episodes of confusion, she does have trouble clearing her airways, has a chronic cough, so she tends to not answer questions due to her cough, on Wednesday she did not receive dialysis due to to low blood pressures, she was actually here on Wednesday due to low blood pressures, and then again today she was seen by her home health care nurse, and she had low blood pressures, so she was sent here to the emergency room. She according to family has not really complained of anything, no nausea, no vomiting, no abdominal pain, no diarrhea she has been urinating less, she has not urinated much according to family in the last 24 hours. No chest pain complaints, she has looked more short of breath and more edematous according to family members Review of Systems General: Reports: ROS unobtainable due to mental status Medications/Allergies Home Medications Medication Instructions Recorded Confirmed Last Taken Type eszopiclone 2 mg tablet (Lunesta) 2 mg PO BEDTIME 05/16/19 07/27/22 07/06/22 History hydrocodone 5 mg-acetaminophen 325 1 tab PO BID PRN Pain 05/16/19 07/27/22 07/06/22 History mg tablet lubiprostone 24 mcg capsule 24 mcg PO BID 05/16/19 07/27/22 06/22/22 History (Amitiza) multivitamin 1 tab PO BEDTIME 05/16/19 07/27/22 06/22/22 History ropinirole 2 mg tablet 2 mg PO BEDTIME 10/11/20 07/27/22 06/21/22 History budesonide 160 mcg-glycopyr 9 2 inh inhalation BID 02/13/21 07/27/22 06/22/22 History mcg-formot 4.8 mcg/actuation HFA inhaler (Breztri Aerosphere) sennosides 8.6 mg tablet (senna) See Rx Instructions .Route .COMPLEX 06/18/21 07/27/22 06/22/22 History vit C 250 mg-vit E 90 mg-zinc 40 1 tab PO BID 06/18/21 07/27/22 06/22/22 History mg-copper 1 [id number]-okzzyn capsule (PreserVision AREDS-2) ferrous gluconate 324 mg (38 mg 324 mg PO DAILY 08/01/21 07/27/22 07/06/22 History iron) tablet nystatin 100,000 unit/mL oral 100,000 unit PO BID 08/01/21 07/27/22 10/01/21 History suspension furosemide 40 mg tablet 40 mg PO DAILY 01/19/22 07/27/22 06/22/22 History guaifenesin 100 mg/5 mL oral 200 mg (10 mL) PO Q4H PRN cough 03/26/22 07/27/22 Unknown Rx liquid (Mucinex Fast-Max Chest #473 mL Congestion) levalbuterol tartrate 45 2 inh inhalation Q6H #15 grams 03/26/22 07/27/22 06/22/22 Rx mcg/actuation aerosol inhaler (Xopenex HFA) lansoprazole 30 mg capsule,delayed 30 mg PO BID #180 caps 03/30/22 07/27/22 07/07/22 Rx release (Prevacid) montelukast 10 mg tablet 10 mg PO DAILY #30 tabs 06/02/22 07/27/22 06/21/22 Rx (Singulair) ipratropium bromide 21 mcg (0.03 2 spray intranasal TID PRN NASAL 06/22/22 07/27/22 Unknown History %) nasal spray DRAINAGE pregabalin 75 mg capsule (Lyrica) 75 mg PO DAILY 06/22/22 07/27/22 07/07/22 History propranolol 20 mg tablet 20 mg PO QAM 06/22/22 07/27/22 06/22/22 History midodrine 5 mg tablet 10 mg PO TID 30 days #180 tabs 07/24/22 07/27/22 Unknown Rx bumetanide 1 mg tablet 1 mg PO DAILY 07/25/22 07/27/22 Unknown History pantoprazole 40 mg tablet,delayed 40 mg PO DAILY 07/25/22 07/27/22 Unknown History release metoprolol succinate 25 mg 12.5 mg PO DAILY 07/27/22 07/27/22 07/27/22 History tablet,extended release 24 hr Allergies Allergy/AdvReac Type Severity Reaction Status Date / Time atropine Allergy Unknown Unknown Verified 07/25/22 11:11 benztropine Allergy Unknown Unknown Verified 07/25/22 11:11 cefadroxil Allergy Unknown Unknown Verified 07/25/22 11:11 cimetidine Allergy Unknown Unknown Verified 07/25/22 11:11 enalapril Allergy Unknown Unknown Verified 07/25/22 11:11 enalaprilat Allergy Unknown Unknown Verified 07/25/22 11:11 gabapentin Allergy Unknown Unknown Verified 07/25/22 11:11 Sulfa (Sulfonamide Allergy Unknown Unknown Verified 07/25/22 11:11 Antibiotics) tramadol Allergy Unknown ADR-Itching Verified 07/25/22 11:11 zolpidem Allergy Unknown Unknown Verified 07/25/22 11:11 albuterol Allergy ALGY-Swell Verified 07/25/22 11:11 Lip/Tongue/Throat PFSH Acute PFSH: Medical History (Updated 07/27/22 @ 17:55 by Nickolas Morgan MD) Acquired elevated hemidiaphragm Acute kidney injury Acute kidney injury superimposed on CKD Acute metabolic encephalopathy Acute respiratory failure with hypoxia and hypercapnia Asthma Atrial fibrillation Autoimmune hemolytic anemia Bicytopenia CAD (coronary artery disease) COPD (chronic obstructive pulmonary disease) Dehydration Diastolic heart failure Dysphagia Essential tremor GERD (gastroesophageal reflux disease) Heart failure HTN (hypertension) Hyperkalemia Hypokalemia Iron deficiency anemia Left ankle swelling LRTI (lower respiratory tract infection) Myoclonus Osteoarthritis Pacemaker Pacemaker syndrome Peripheral arterial disease Pleural effusion Pneumonia Restrictive lung disease Sepsis Septic shock Urinary tract infection Varicose veins of left lower extremity with other complications Surgical History Previous back surgery S/P cardiac pacemaker procedure S/P cataract extraction S/P hysterectomy S/P tubal ligation Family History Father , [place] age 44 Myocardial infarction Social History Smoking and tobacco status: never smoked Vitals/I&O/Wt Last Vital Signs Pulse 80 07/27/22 17:15 Resp 25 H 07/27/22 17:15 BP 113/81 07/27/22 17:15 Pulse Ox 100 07/27/22 17:15 O2 Del Method BiPAP 07/27/22 17:15 O2 Flow Rate 4 07/27/22 16:45 FiO2 35 07/27/22 17:15 07/27/22 07/27/22 07/27/22 06:59 14:59 22:59 Intake Total 12.192 / 12.192 72.39 / 84.582 Balance 12.192 / 12.192 72.39 / 84.582 Weight last 48 hrs Weight 81.647 kg Physical Exam Const: COMMON NORMALS: no acute distress EXAM LIMITATIONS: altered mental status ORIENTATION/CONSCIOUSNESS: Yes awake, Yes oriented to person and Yes confused; not oriented to place and not oriented to time OTHER: Scleral icterus present HENMT: COMMON NORMALS: normocephalic, Normal external nose present and oropharynx normal HEAD & SCALP: normocephalic FACE & SINUS: normal facial exam NOSE: Normal external nose present Eye: COMMON NORMALS: Equal, round and reactive pupils present and conjunctivae normal CONJUNCTIVA: Yes conjunctivae normal PUPIL: Yes Equal, round and reactive pupils present Neck/C-Spine: COMMON NORMALS: no lymphadenopathy, no meningeal signs, no JVD, Thyroid normal and No carotid bruits THYROID: Thyroid normal Lymph: LYMPHATIC: no lymphadenopathy noted Chest: COMMONS NORMALS: normal inspection of the chest Resp: COMMON NORMALS: normal respiratory effort, No retractions and No use of accessory muscles OTHER: Wheezing and crackles in all lung francisco Cardio: COMMON NORMALS: no JVD, regular rate, regular rhythm, S1 normal heart sound present, S2 normal heart sound present, No murmurs present (Cardio) and Peripheral pulses 2+ throughout RATE: regular rate RHYTHM: regular rhythm HEART SOUNDS: S1 normal heart sound present and S2 normal heart sound present PERIPHERAL PULSES: Peripheral pulses 2+ throughout GI: COMMON NORMALS: Normal to inspection, nondistended, normoactive bowel sounds present and Soft to palpation PALPATION: Yes Soft to palpation OTHER: Has right upper quadrant tenderness : COMMON NORMALS: Yes no CVA tenderness BLADDER/KIDNEY EXAM: Yes no CVA tenderness Back/Pelvis: COMMON NORMALS: no CVA tenderness Extremity: COMMON NORMALS: no pedal edema Neuro: OTHER: Difficult to do in a logic exam as she does not follow commands at times, but can wiggle her toes, can squeeze my fingers Sepsis: Is patient septic: Yes Focused sepsis exam performed: Yes Focused sepsis exam: - Septic exam, does have crackles and wheezing in all lung francisco -Peripheral extremities, mottling up to the level of the shins -DP PT pulses diminished bilaterally 1+ -Capillary refill is greater than 2 seconds -Acute encephalopathy Date exam was performed: 07/27/22 Time exam was performed: 17:57 Data 07/27/22 13:42 07/27/22 13:42 Micro: Microbiology 07/27/22 15:00 Blood Culture - Preliminary Blood SPECIMEN COLLECTED 07/27/22 13:50 Blood Culture - Preliminary Blood SPECIMEN COLLECTED Other data: - I personally reviewed patient's chest x-ray, shows a overload, does show right pleural effusion, possible right lower lobe infiltrates -EKG shows paced rhythm -Reviewed blood work A&P Assessment and plan (1) Septic shock: (2) ESRD on dialysis: (3) Acute exacerbation of congestive heart failure: (4) Hypotension: (5) Pacemaker syndrome: (6) Acquired elevated hemidiaphragm: (7) COPD (chronic obstructive pulmonary disease): (8) Diastolic heart failure: (9) Bicytopenia: (10) Asthma: (11) Atrial fibrillation: (12) Acute respiratory failure with hypoxia and hypercapnia: (13) CAD (coronary artery disease): (14) Acute encephalopathy: (15) CO2 narcosis: (16) Uremia: (17) Aspiration pneumonia: (18) NSTEMI (non-ST elevated myocardial infarction): (19) Hyperbilirubinemia: (20) Severe muscle deconditioning: (21) Goals of care, counseling/discussion: (22) Fluid overload: Plan Shock -Likely multifactorial -Possibly secondary to adrenal insufficiency? We will check cortisol given 100 mg of hydrocortisone -Concerns for septic shock, does have right upper quadrant tenderness, elevated T. bili, will get a right upper quadrant ultrasound, also obtain a CT scan abdomen pelvis -Concerns for septic shock sec to aspiration pneumonia, CT of the chest -Start broad-spectrum antibiotic therapy vancomycin, meropenem -Sputum cultures, blood cultures, urine cultures -Possibly cardiogenic shock? 2 EKGs or troponins telemetry monitoring cardiac echo although no chest pain complaints -Currently on Levophed, at 10, ER to place central access Patient's left IV infiltrated, with Levophed, will have to keep a very close eye on that site, monitor for necrosis -We will consider Nitropaste depending on clinical progress NSTEMI -Likely supply demand ischemia from abnormal lying respiratory failure, type II NSTEMI -However cannot rule out underlying cardiac etiology given underlying risk factors -Serial EKGs serial troponins telemetry monitoring -Repeat cardiac echo Altered mental status -From uremia -From septic shock -From aspiration pneumonia -From hypercapnia -Neurochecks, aspiration precautions, night stroke scale, CT of the head Acute on chronic hypercapnic respiratory failure -Likely multifactorial -Aspiration pneumonia, from chronic inability to clear airway secretions -Obesity hypoventilation syndrome -Fluid overload from systolic diastolic CHF -Acute on chronic renal failure, and fluid overload -Severe deconditioning -We will consult nephrology, for CRRT as she is on Levophed, he is intolerant to dialysis -D-dimer, CT angiogram of the chest to rule out pulmonary embolism, venous ultrasound Aspiration pneumonia -Aspiration precautions -Antibiotics as above Acute on chronic anemia -As below -Protonix, Carafate Acute on chronic thrombocytopenia -As below Severe deconditioning Systolic and diastolic CHF exacerbation -Consult nephrology for CRRT Acute on chronic renal failure, dialysis dependent -Consult nephrology for CRRT Right pleural effusion -Will obtain thoracocentesis ultrasound Chronic right hemidiaphragmatic elevation, with chronic aspiration, causing endobronchial mucosal edema, trouble clearing airway secretions , Poor esophageal motility, poor pharyngeal function Chronic aspiration Severe deconditioning BiPAP dependence COPD, BiPAP dependent Sick sinus syndrome pacemaker in place Atrial fibrillation, not on candidate coagulation was on Coumadin in the past History of bicytopenia which persist -There was an attempt to transfer her to tertiary level center, initially [facility] was called for concerns for microangiopathic hemolytic anemia due to her low haptoglobin, and schistocytes and dariana cells seen on a peripheral smear however they had recommended for her to be transferred to tertiary level center after discussion with business systems developer -She did receive transfusion during her last hospitalization, however due to improvement of her anemia, and her platelet count, transfer was canceled -Seems as if she also received transfusions at [facility] -We will repeat haptoglobin, LDH, peripheral smear, -Monitor hemoglobin History of CAD Goals of care discussion -Had extensive discussion goals of care with patient's -Family is okay with defibrillation, and drugs per ACLS, in ICU admission -Family declines chest compressions, declines intubation -Above all if she starts to suffer, that they tell me that they are good Christians, and they are not afraid of , so they do not want her to suffer Attestations Medical Necessity Statement*: Patient requires hospitalization, inpatient, greater than 2 midnights, for acute respiratory failure, requiring CRRT, septic shock, shock, acute anemia, aspiration pneumonia, fluid overload, systolic diastolic CHF exacerbation, deconditioning, bicytopenia, right pleural effusion, altered mental status, NSTEMI Coding Level of Care Code Critical Care >/= 30 minutes Critical care time (in minutes): 80 The high probability of a clinically significant, sudden or life threatening deterioration, as referenced in this documentation, required my full and direct attention, intervention and personal management. The critical care time shown is in addition to time spent performing any reported separately billable procedures and includes the following: [x] Data and vital sign review and interpretation [x] Patient assessment, examination and intervention [x] Medication orders and management [x] Patient/Family updates as able [x] Care Coordination and Documentation. Diagnoses Septic shock A41.9; R65.21 ESRD on dialysis N18.6; Z99.2 Acute exacerbation of congestive heart failure I50.9 Hypotension I95.9 Pacemaker syndrome I97.190 Acquired elevated hemidiaphragm J98.6 COPD (chronic obstructive pulmonary disease) J44.9 Diastolic heart failure I50.30 Bicytopenia D75.89 Asthma J45.909 Atrial fibrillation I48.91 Acute respiratory failure with hypoxia and hypercapnia J96.01; J96.02 CAD (coronary artery disease) I25.10 Acute encephalopathy G93.40 CO2 narcosis R06.89 Uremia N19 Aspiration pneumonia J69.0 NSTEMI (non-ST elevated myocardial infarction) I21.4 Hyperbilirubinemia E80.6 Severe muscle deconditioning R29.898 Goals of care, counseling/discussion Z71.89 Fluid overload E87.70
--- NOTE | 2022-07-27 17:54 | PC.PHAR ---
Pt to be monitored for dialysis daily.... please contact pharmacy if pt is placed on a dialysis schedule Patient: Floor: Age: 82 yo Serum creatinine: 4.4 mg/dL Height: 65.0 Inches Weight (kg): 81 IBW (kg): 57.00 Dosing wt(kg): 81 Estimated Creatinine clearance (ml/min): 9.0 CRCL method: Cockcroft and Gault using ibw(default). Drug selected: Vancomycin Loading dose (mg): Vd (liters): 56.7 (factor used: 0.7 L/kg) Saman (hr-1): 0.012 Half life (hrs): 57.76 CLvanco=?? 0.680 L/hr Recommended dose: 1000 mg Interval: 72 hrs Infusion time (hrs): 1 Predicted peak (mcg/mL): 30.3 Predicted trough (mcg/mL): 12.92 Total body weight is being used for vancomycin dosing. Recommendations: Give Vancomycin 1000 mg q 72 hrs with an expected Cpeak of 30.3 mcg/ml and an expected Ctrough of 12.92 mcg/ml AUC 0-24 /TAWNY Data: TAWNY 0.5 mcg/mL:?? AUC/TAWNY:? 980.4 TAWNY 1.0 mcg/mL:?? AUC/TAWNY:? 490.2 --------- TAWNY 1.5 mcg/mL:?? AUC/TAWNY:? 326.8 TAWNY 2.0 mcg/mL:?? AUC/TAWNY:? 245.1 Renal dosing of other antibiotics (review renal dosing of other medications and list guidelines here): Thank you for the consult, will continue to follow. Signature: Austin BejaranoD
--- NOTE | 2022-07-27 18:26 | PC.NURSE ---
Arrived from ED, Dr. Morgan at bedside. this nurse assumed care, unable to obtain adequate vascular access. PICC line team in room at this time
--- NOTE | 2022-07-27 19:22 | XRR_ITS ---
PROCEDURE INFORMATION: Exam: XR Chest Exam date and time: 07/27/2022 7:38 PM Age: 82 years old Clinical indication: Device placement; Picc; Additional info: Verification of picc placement TECHNIQUE: Imaging protocol: Radiologic exam of the chest. Views: 1 view. COMPARISON: CR XR chest 1V [id number] 07/27/2022 1:14 PM FINDINGS: Tubes, catheters and devices: Left-sided PICC line with tip in the superior vena cava. Right central venous catheter tip over the right atrium. Left-sided pacemaker. Lungs: Moderate right pleural effusion with suspected elevated right hemidiaphragm with right lung atelectasis versus infiltrate similar to prior exam. Pleural spaces: See Lungs finding. Heart/Mediastinum: Cardiomegaly. Bones/joints: Unremarkable. XR/XR chest 1V portable [id number] IMPRESSION: 1. Left-sided PICC line with tip in the superior vena cava. 2. Right central venous catheter tip over the right atrium. 3. Cardiomegaly. 4. Moderate right pleural effusion with suspected elevated right hemidiaphragm with right lung atelectasis versus infiltrate similar to prior exam. 5. Left-sided pacemaker.
[2022-07-27 20:09] LABS: D Dimer 5.41 ug/mIFEU (0-0.59)
[2022-07-27 20:12] LABS: Troponin 5 6HR 59.01 ng/L (0-10); Troponin 5 6HR Delta -5.99 ng/L (0-12)
[2022-07-27 20:13] LABS: Lactic Sepsis W/Reflex 1.2 mmol/L (0.5-2.2)
[2022-07-27] MEDS: pantoprazole 40 mg SDV IVP (20:14)
[2022-07-27] MEDS: meropenem 500 MG in sodium chloride 0.9% (plus) 50 ML 100 MG IV (20:18)
[2022-07-27] MEDS: vancomycin 1,000 MG in sodium chloride 0.9% 250 ML 250 MG IV (20:19)
--- NOTE | 2022-07-27 20:19 | PC.NURSE ---
Consulted for PICC placement on pt with poor PIV access, needs multiple drips. Upon arrival pt unable to sign consent. Physician signed consent emergently. Noted pt has right anterior chest wall dialysis catheter and left upper anterior chest PPM. Assessed RUE and noted the basilic to be approximately 4 mm in diameter and free of evidence of thrombus or stenosis. Using US guidance, MST, and sterile technique the R basilic vein was accessed x 1 stick. Device would not advance the last 6 cm of the measured length. Physician who ordered it requested to leave a midline in and attempt on the left side. Device was trimmed to 14 cm and placed. Device aspirates and flushes. Device secured and dressed. The LUE was then assessed and noted the basilic was greater than 4mm in diameter and free of evidence of thrombus or stenosis. Using US guidance, MST, and sterile technique the L basilic was accessed x 1 stick. Device fed easily. Device ports aspirate and flush easily. Labs obtained and provided to primary nurse. Device dressed and secured. EBL 15ml. Pt tolerated well. Chest x-ray ordered and appears to be in SVC, but pending physician reading.
[2022-07-27] MEDS: albumin 25 G/100 ML BAG 60 G IV (20:21)
--- NOTE | 2022-07-27 20:52 | PM.CONSULT ---
Providers/Reason For Consult Consulting Physician/Specialty*: [facility]/Nephrology Reason for Consult*: ESRD Attending Physician: Nickolas Morgan MD Primary Care Provider: Neeraj Cardoza MD History of Present Illness History of Present Illness 82-year-old female with past medical history of CHF ischemic cardiomyopathy, moderate to severe tricuspid regurg, history of A-fib, status post pacemaker, hypertension, moderate pulmonary hypertension, COPD, CKD stage IV has recent recurrent admissions due to volume overload and she was started on hemodialysis for volume management. Recently was discharged from the hospital but readmitted today due to low blood pressures and respiratory distress. The ED patient was noted to have hypotensive was placed on Levophed briefly, lab data is significant for hemoglobin of 8.3, potassium was 4.1 and creatinine 4.4. Chest x-ray showed pulmonary congestion and right pleural effusion. Patient is currently on BiPAP 35% FiO2. She is not able to provide much history at this time. Review of Systems Narrative: unable to obtain from pt Medications/Allergies Home Medications Medication Instructions Recorded Confirmed Last Taken Type eszopiclone 2 mg tablet (Lunesta) 2 mg PO BEDTIME 05/16/19 07/27/22 07/06/22 History hydrocodone 5 mg-acetaminophen 325 1 tab PO BID PRN Pain 05/16/19 07/27/22 07/06/22 History mg tablet lubiprostone 24 mcg capsule 24 mcg PO BID 05/16/19 07/27/22 06/22/22 History (Amitiza) multivitamin 1 tab PO BEDTIME 05/16/19 07/27/22 06/22/22 History ropinirole 2 mg tablet 2 mg PO BEDTIME 10/11/20 07/27/22 06/21/22 History budesonide 160 mcg-glycopyr 9 2 inh inhalation BID 02/13/21 07/27/22 06/22/22 History mcg-formot 4.8 mcg/actuation HFA inhaler (Breztri Aerosphere) sennosides 8.6 mg tablet (senna) See Rx Instructions .Route .COMPLEX 06/18/21 07/27/22 06/22/22 History vit C 250 mg-vit E 90 mg-zinc 40 1 tab PO BID 06/18/21 07/27/22 06/22/22 History mg-copper 1 [id number] capsule (PreserVision AREDS-2) ferrous gluconate 324 mg (38 mg 324 mg PO DAILY 08/01/21 07/27/22 07/06/22 History iron) tablet nystatin 100,000 unit/mL oral 100,000 unit PO BID 08/01/21 07/27/22 10/01/21 History suspension furosemide 40 mg tablet 40 mg PO DAILY 01/19/22 07/27/22 06/22/22 History guaifenesin 100 mg/5 mL oral 200 mg (10 mL) PO Q4H PRN cough 03/26/22 07/27/22 Unknown Rx liquid (Mucinex Fast-Max Chest #473 mL Congestion) levalbuterol tartrate 45 2 inh inhalation Q6H #15 grams 03/26/22 07/27/22 06/22/22 Rx mcg/actuation aerosol inhaler (Xopenex HFA) lansoprazole 30 mg capsule,delayed 30 mg PO BID #180 caps 03/30/22 07/27/22 07/07/22 Rx release (Prevacid) montelukast 10 mg tablet 10 mg PO DAILY #30 tabs 06/02/22 07/27/22 06/21/22 Rx (Singulair) ipratropium bromide 21 mcg (0.03 2 spray intranasal TID PRN NASAL 06/22/22 07/27/22 Unknown History %) nasal spray DRAINAGE pregabalin 75 mg capsule (Lyrica) 75 mg PO DAILY 06/22/22 07/27/22 07/07/22 History propranolol 20 mg tablet 20 mg PO QAM 06/22/22 07/27/22 06/22/22 History midodrine 5 mg tablet 10 mg PO TID 30 days #180 tabs 07/24/22 07/27/22 Unknown Rx bumetanide 1 mg tablet 1 mg PO DAILY 07/25/22 07/27/22 Unknown History pantoprazole 40 mg tablet,delayed 40 mg PO DAILY 07/25/22 07/27/22 Unknown History release metoprolol succinate 25 mg 12.5 mg PO DAILY 07/27/22 07/27/22 07/27/22 History tablet,extended release 24 hr Allergies Allergy/AdvReac Type Severity Reaction Status Date / Time atropine Allergy Unknown Unknown Verified 07/25/22 11:11 benztropine Allergy Unknown Unknown Verified 07/25/22 11:11 cefadroxil Allergy Unknown Unknown Verified 07/25/22 11:11 cimetidine Allergy Unknown Unknown Verified 07/25/22 11:11 enalapril Allergy Unknown Unknown Verified 07/25/22 11:11 enalaprilat Allergy Unknown Unknown Verified 07/25/22 11:11 gabapentin Allergy Unknown Unknown Verified 07/25/22 11:11 Sulfa (Sulfonamide Allergy Unknown Unknown Verified 07/25/22 11:11 Antibiotics) tramadol Allergy Unknown ADR-Itching Verified 07/25/22 11:11 zolpidem Allergy Unknown Unknown Verified 07/25/22 11:11 albuterol Allergy ALGY-Swell Verified 07/25/22 11:11 Lip/Tongue/Throat Current Medications Generic Name Dose Route Start Last Admin Trade Name Freq PRN Reason Stop Dose Admin Norepinephrine Bitartrate 4 mg 254 mls @ 0 mls/hr 07/27/22 13:30 07/27/22 16:45 / Dextrose IV 0 mcg/min .Q0M KACEY 0 mls/hr Titration Protocol Per Protocol Vancomycin HCl 1,000 mg/ 250 mls @ 250 mls/hr 07/27/22 18:30 07/27/22 20:19 Sodium Chloride IV 250 mls/hr Q72H KACEY Administration Protocol As Directed Meropenem 500 mg/ Sodium 50 mls @ 100 mls/hr 07/27/22 18:30 07/27/22 20:18 Chloride IV 100 mls/hr Q12H KACEY Administration Protocol Albumin Human 25 g in 100 mls @ 60 mls/hr 07/27/22 18:00 07/27/22 20:21 Albumin IV 60 mls/hr Q8H KACEY Administration Pantoprazole Sodium 40 mg 07/27/22 18:00 07/27/22 20:14 Pantoprazole 40 Mg Sdv IVP 40 mg Q12H KACEY Administration PFSH Acute PFSH: Medical History (Updated 07/27/22 @ 17:55 by Nickolas Morgan MD) Acquired elevated hemidiaphragm Acute kidney injury Acute kidney injury superimposed on CKD Acute metabolic encephalopathy Acute respiratory failure with hypoxia and hypercapnia Asthma Atrial fibrillation Autoimmune hemolytic anemia Bicytopenia CAD (coronary artery disease) COPD (chronic obstructive pulmonary disease) Dehydration Diastolic heart failure Dysphagia Essential tremor GERD (gastroesophageal reflux disease) Heart failure HTN (hypertension) Hyperkalemia Hypokalemia Iron deficiency anemia Left ankle swelling LRTI (lower respiratory tract infection) Myoclonus Osteoarthritis Pacemaker Pacemaker syndrome Peripheral arterial disease Pleural effusion Pneumonia Restrictive lung disease Sepsis Septic shock Urinary tract infection Varicose veins of left lower extremity with other complications Surgical History Previous back surgery S/P cardiac pacemaker procedure S/P cataract extraction S/P hysterectomy S/P tubal ligation Family History Father , CA age 44 Myocardial infarction Social History Smoking and tobacco status: never smoked Vitals/I&O/Wt Last Vital Signs Pulse 80 07/27/22 17:31 Resp 25 H 07/27/22 17:31 BP 113/81 07/27/22 17:31 Pulse Ox 100 07/27/22 17:31 O2 Del Method BiPAP 07/27/22 17:15 O2 Flow Rate 4 07/27/22 16:45 FiO2 35 07/27/22 17:15 07/27/22 07/27/22 07/27/22 06:59 14:59 22:59 Intake Total 12.192 / 12.192 72.39 / 84.582 Balance 12.192 / 12.192 72.39 / 84.582 Weight last 48 hrs Weight 81.647 kg Physical Exam Narrative: no distress , on BIPAP S1 S2 RRR per report crackles mica per report + edema Data 07/27/22 13:42 07/27/22 13:42 Micro: Microbiology 07/27/22 15:00 Blood Culture - Preliminary Blood SPECIMEN COLLECTED 07/27/22 13:50 Blood Culture - Preliminary Blood SPECIMEN COLLECTED A&P Assessment and plan (1) Kidney failure: Plan 1. ESRD: Recently started on dialysis for volume management, but patient not tolerating hemodialysis due to low blood pressures. Now presented with volume overload and will place her on CRRT. UF as tolerated. -We will add midodrine, IV albumin as needed -Given multiple comorbidities and baseline low blood pressures patient will not be a long-term hemodialysis candidate and further goals of care discussions would be appropriate. 2. Acute on chronic respiratory failure: Multifactorial secondary to COPD, CKD, CHF, on BiPAP currently. CRRT as above 3. Hypotension: Agree with stress dosing steroids status post Levophed, currently off. Monitor 4. Anemia: Hemoglobin 8.3, transfuse if hemoglobin less than 7, anemia multifactorial Patient evaluated using audiovisual cart. Time spent 45 minutes Consult Attestations Medical Necessity Statement: per medicine Coding Level of Care Code Acute Code for Chg Fwd Diagnoses Kidney failure N19
[2022-07-27 21:32] LABS: Ammonia 78 umol/L (11-51)
[2022-07-27] MEDS: iohexol 350 mg/mL 500 mL Btl (per mL) IV (21:32)
[2022-07-27 21:33] LABS: Ferritin 50 ng/mL (15-150); Gamma Glutamyl Transferase 14 U/L (5-36); Lipase 77 U/L (13-60); Total Bilirubin 1.6 mg/dL (0.15-1.2)
[2022-07-27 21:37] LABS: Lactate Dehydrogenase 186 U/L (135-214)
[2022-07-27 21:48] LABS: Albumin Level 4.7 g/dL (3.5-5.2); Blood Urea Nitrogen 49 mg/dL (8-23); Calcium 9.6 mg/dL (8.5-10.5); Carbon Dioxide 26 mmol/L (22-29); Chloride 98 mmol/L (98-107); Glucose 106 mg/dL (65-115); Magnesium 2.5 mg/dL (1.7-2.3); Phosphorus 3.4 mg/dL (2.5-4.5); Sodium 137 mmol/L (136-145)
[2022-07-27 21:55] LABS: Anion Gap 17.9 (5-19); Potassium 4.9 mmol/L (3.5-5.1)
[2022-07-27] MEDS: sodium chloride 0.9% 1,000 mL Bag CRRT ×2 (22:37→22:53)
[2022-07-27] MEDS: PrismaSol BGK 4/2.5 - 5,000 mL Bag 5000 ML CRRT ×3 (22:38→22:52)
[2022-07-27 22:47] LABS: LAB Peripheral Smear Sent for Review
[2022-07-28] VITALS (102 sets, daily range): BP systolic 78–117; BP diastolic 53–84; PULSE 80–87; RESP 12–32; TEMP 33.8–34.7; O2SAT 93–100; BMI 30.7
[2022-07-28] MEDS: hydrocortisone 100 mg/2 mL SDV IVP (00:56)
[2022-07-28] MEDS: sodium chloride 0.9% 1,000 mL Bag CRRT (01:52)
[2022-07-28] MEDS: albumin 25 G/100 ML BAG 60 G IV ×2 (01:52→10:00)
[2022-07-28 03:01] LABS: Basophils # 0.1 10^3/uL (0.0-0.1); Basophils % 0.9 %; Eosinophils # 0.1 10^3/uL (0.0-0.8); Eosinophils % 1.2 %; Hematocrit 29.2 % (37.0-47.0); Hemoglobin 8.4 g/dL (11.5-15.3); Lymphocytes # 0.9 10^3/uL (0.8-4.8); Lymphocytes % 13.7 %; Mean Corpuscular HGB Conc 28.8 g/dL (30.0-36.0); Mean Corpuscular Hemoglobin 28.2 pg (28.0-34.0); Mean Platelet Volume 12.5 fL (7.4-10.4); Monocytes # 0.5 10^3/uL (0.2-0.9); Monocytes % 7.9 %; Neutrophils # 5.02 10^3/uL (1.8-7.7); Nucleated Red Blood Cells # 0.1 /100WBC; Nucleated Red Blood Cells % 1.2 %; Platelet Count 132 10^3/cmm (130-400); Red Blood Count 2.98 10^6/uL (4.1-5.3); Red Cell Distribution Width 23.1 % (12.1-15.1); White Blood Count 6.7 10^3/uL (4.0-10.0)
--- NOTE | 2022-07-28 03:19 | PC.NURSE ---
CRRT began at 0000 this morning. Dialysis lines aspirated well with mild clotting observed. CRRT initiated without issue. Patient has required Levophed to to be resumed and titrated once to 4mcg/min at this time. Pressures holding well with MAP >70 (see vitals). Patient has remained AOx4 when aroused. No complaints of pain or discomfort. Left arm appears to be infiltrated which was reported by ER nurse to dayshift staff. Left wrist has moderate swelling and bruising noted as well as left AC. Limb has been elevated and warm compress applied.
[2022-07-28 03:21] LABS: ABG PCO2 57.5 mmHg (35-45); ABG PH Result 7.27 (7.35-7.45); Arterial Blood Gas Hematocrit 26.5 % (37-47); Base Excess ABG -0.7 mmol/L (-2.0-2.0); Blood Gas Allen Test Pos; Blood Gas Sample Site Radial, right; Blood Gas Sample Type Arterial; HCO3 ABG 26.6 mmol/L (22-26); Oxygen Device BIPAP; PO2 ABG 86.6 mmHg (80.0-100.0)
[2022-07-28 03:27] LABS: Lactate (Lactic Acid level) 1.5 mmol/L (0.5-2.2)
[2022-07-28 03:36] LABS: NT Pro B Type Natriuretic Pept 13232 pg/mL (0-450); Procalcitonin 1.21 ng/mL (0-0.5)
[2022-07-28 03:48] LABS: Alanine Aminotransferase 7 U/L (0-33); Albumin Level 4.8 g/dL (3.5-5.2); Alkaline Phosphatase 94 U/L (35-105); Aspartate Amino Transferase 21 U/L (0-32); Blood Urea Nitrogen 35 mg/dL (8-23); C Reactive Protein 23.2 mg/L (0.0-4.9); Calcium 9.4 mg/dL (8.5-10.5); Carbon Dioxide 26 mmol/L (22-29); Chloride 98 mmol/L (98-107); Creatine Phosphokinase 7 U/L (26-192); Globulin 2.8 g/dL (1.3-4.6); Glucose 99 mg/dL (65-115); Magnesium 2.5 mg/dL (1.7-2.3); Osmolality Calculated 292 mOsm/kg (285-295); Phosphorus 2.6 mg/dL (2.5-4.5); Sodium 137 mmol/L (136-145); Total Bilirubin 1.7 mg/dL (0.15-1.2); Total Protein 7.6 g/dL (6.6-8.7)
[2022-07-28] MEDS: PrismaSol BGK 4/2.5 - 5,000 mL Bag 5000 ML CRRT ×9 (04:01→21:20)
[2022-07-28 04:35] LABS: INR 1.74 (0.8-1.2)
[2022-07-28] MEDS: sodium chloride 0.9 % (flush) syringe 10 mL IV ×2 (05:03→17:29)
[2022-07-28] MEDS: meropenem 500 MG in sodium chloride 0.9% (plus) 50 ML 100 MG IV (06:06)
[2022-07-28] MEDS: heparin 5,000 unit/mL INJ 1 mL 5000 UNIT SUBCUT (06:06)
[2022-07-28] MEDS: pantoprazole 40 mg SDV IVP (06:06)
--- NOTE | 2022-07-28 07:00 | XRR_ITS ---
PROCEDURE INFORMATION: Exam: XR Chest Exam date and time: 07/28/2022 5:06 AM Age: 82 years old Clinical indication: Condition or disease; Lung condition and disease; Pleural effusion and pneumonia; Other: Not specified; Prior surgery; Surgery date: 6+ months; Surgery type: Pacer, dialysis cath; Additional info: SOB TECHNIQUE: Imaging protocol: Radiologic exam of the chest. Views: 1 view. Total images: 1 COMPARISON: CR (CHEST, ) 07/27/2022 7:38 PM FINDINGS: Tubes, catheters and devices: A pacemaker device is present, its leads in appropriate position. Tubes and catheters are unchanged from the prior exam. Lungs: Stable right pleuroparenchymal disease. Trace atelectasis or scar noted in the left lung base. Pleural spaces: No pneumothorax. Heart/Mediastinum: Heart is enlarged but stable when compared to the prior exam. Bones/joints: Diffuse osteopenia noted. Osseous structures are unchanged from the prior exam. XR/XR chest 1V portable 11312 IMPRESSION: 1. Tubes and catheters are unchanged from the prior exam. 2. Heart is enlarged but stable when compared to the prior exam. 3. Stable right pleuroparenchymal disease. 4. Trace atelectasis or scar noted in the left lung base.
[2022-07-28] MEDS: lactulose oral liq 20 gm/30 mL UDC PO (08:50)
[2022-07-28 10:32] LABS: Albumin Level 5.2 g/dL (3.5-5.2); Anion Gap 17.4 (5-19); Blood Urea Nitrogen 28 mg/dL (8-23); Calcium 8.8 mg/dL (8.5-10.5); Carbon Dioxide 26 mmol/L (22-29); Chloride 99 mmol/L (98-107); Glucose 146 mg/dL (65-115); Magnesium 2.5 mg/dL (1.7-2.3); Phosphorus 2.4 mg/dL (2.5-4.5); Potassium 4.4 mmol/L (3.5-5.1); Sodium 138 mmol/L (136-145)
--- NOTE | 2022-07-28 11:11 | P.PN_ITS ---
Subjective Subjective: on CRRT , tolerating well Medications: Reviewed: Yes Vitals/I&O/Wt Last Vital Signs Temp 93.5 F L 07/28/22 09:00 Pulse 80 07/28/22 09:05 Resp 26 H 07/28/22 09:05 BP 103/76 07/28/22 09:05 Pulse Ox 100 07/28/22 09:05 O2 Del Method BiPAP 07/27/22 20:00 O2 Flow Rate 4 07/27/22 16:45 FiO2 30 07/28/22 10:00 07/27/22 07/28/22 07/28/22 22:59 06:59 14:59 Intake Total 222.39 / 234.582 215.405 / 449.987 0 / 0 Output Total Balance 222.39 / 234.582 205.405 / 439.987 -10 -10 Weight last 48 hrs Weight 83.915 kg Weight 81.647 kg Physical Exam Narrative: no distress , on BIPAP S1 S2 RRR per report crackles mica per report + edema Data 07/28/22 02:18 07/28/22 09:54 Micro: Microbiology 07/27/22 15:00 Blood Culture - Preliminary Blood SPECIMEN COLLECTED 07/27/22 13:50 Blood Culture - Preliminary Blood SPECIMEN COLLECTED A&P Assessment and plan (1) Kidney failure: Plan 1. ESRD: Recently started on dialysis for volume management, but patient not tolerating hemodialysis due to low blood pressures. Now presented with volume overload and started on CRRT. UF as tolerated. -We will add midodrine, IV albumin as needed -Given multiple comorbidities and baseline low blood pressures patient will not be a long-term hemodialysis candidate and further goals of care discussions would be appropriate. 2. Acute on chronic respiratory failure: Multifactorial secondary to COPD, CKD, CHF, on BiPAP currently. CRRT as above 3. Hypotension: Agree with stress dosing steroids status post Levophed, curre ntly off. Monitor 4. Anemia: Hemoglobin 8.3, transfuse if hemoglobin less than 7, anemia multifac torial Patient evaluated using audiovisual cart. Time spent 45 minutes Attestations Medical Necessity Statement*: per medicine Coding Level of Care Code Acute Code for Chg Fwd Diagnoses Kidney failure N19
[2022-07-28 15:35] LABS: Albumin Level 5.2 g/dL (3.5-5.2); Anion Gap 16.3 (5-19); Blood Urea Nitrogen 21 mg/dL (8-23); Calcium 8.6 mg/dL (8.5-10.5); Carbon Dioxide 26 mmol/L (22-29); Chloride 99 mmol/L (98-107); Glucose 158 mg/dL (65-115); Magnesium 2.5 mg/dL (1.7-2.3); Phosphorus 2.1 mg/dL (2.5-4.5); Potassium 4.3 mmol/L (3.5-5.1); Sodium 137 mmol/L (136-145)
--- NOTE | 2022-07-28 15:53 | P.PN_ITS ---
Subjective Subjective: Patient was seen this morning, is at bedside, she received CRRT throughout the night, was on Levophed, currently with Levophed weaned off, she did have a left-sided PICC line placed, she is alert to person, not to place, not to time, she remains quite frail, poor appetite overnight, she does complain of some abdominal pain, particular in the right upper quadrant, I had a detailed discussion with patient and her about goals of care, her respiratory failure seems to be improving and fluid overload seems improving with CRRT, currently on 2 L, I am worried that she has a gallbladder infection given her right upper quadrant tenderness, her gallbladder ultrasound does gallbladder wall thickening, with her hyperbilirubinemia, I think it is very likely that she does have acute cholecystitis, I have on antibiotics, she continues to be quite frail, poor appetite, she has a history of aspiration, will have speech therapy work with her, but this will be a difficult process with her poor esophageal mobility, I do think she has an aspiration pneumonia, I have her on broad-spectr um antibiotic therapy, I did discuss with him the possibility of proceeding with hospice and comfort care, did voice to me that they are good questions, and they are not afraid of , and he thinks that hospice would be reasonable but he wants to talk to the rest of the family, about when to start hospice, and if they want to resume dialysis they are okay with us to continue medical int erventions for now until they have a family meeting, but overall they do not want her to suffer Vitals/I&O/Wt Last Vital Signs Temp 94.1 F L 07/28/22 12:00 Pulse 80 07/28/22 12:00 Resp 26 H 07/28/22 12:00 BP 103/76 07/28/22 12:00 Pulse Ox 100 07/28/22 09:05 O2 Del Method BiPAP 07/27/22 20:00 O2 Flow Rate 4 07/27/22 16:45 FiO2 30 07/28/22 14:00 07/28/22 07/28/22 07/28/22 06:59 14:59 22:59 Intake Total 215.405 / 449.987 0 / 0 Output Total Balance 205.405 / 439.987 -20 -20 Weight last 48 hrs Weight 83.915 kg Weight 81.647 kg Physical Exam Const: COMMON NORMALS: no acute distress EXAM LIMITATIONS: altered mental status ORIENTATION/CONSCIOUSNESS: Yes awake and Yes oriented to person; not oriented to place and not oriented to time Eye: OTHER: Scleral icterus Resp: COMMON NORMALS: normal respiratory effort, No retractions, No use of accessory muscles and clear to auscultation bilaterally AUSCULTATION: clear to auscultation bilaterally Cardio: COMMON NORMALS: regular rate, regular rhythm, S1 normal heart sound present and S2 normal heart sound present RATE: regular rate RHYTHM: regular rhythm HEART SOUNDS: S1 normal heart sound present and S2 normal heart sound present GI: COMMON NORMALS: Normal to inspection, nondistended, normoactive bowel sounds present OTHER: Has right upper quadrant tenderness Extremity: COMMON NORMALS: no pedal edema Neuro: SENSORIUM/ORIENTATION: Yes oriented to person, No oriented to place and No oriented to time Skin: NARRATIVE SKIN EXAM: Diffuse anasarca Data 07/28/22 02:18 07/28/22 14:55 Micro: Microbiology 07/27/22 15:00 Blood Culture - Preliminary Blood NEGATIVE TO DATE 07/27/22 13:50 Blood Culture - Preliminary Blood NEGATIVE TO DATE A&P Assessment and plan (1) Septic shock: (2) ESRD on dialysis: (3) Acute exacerbation of congestive heart failure: (4) Hypotension: (5) Pacemaker syndrome: (6) Acquired elevated hemidiaphragm: (7) COPD (chronic obstructive pulmonary disease): (8) Diastolic heart failure: (9) Bicytopenia: (10) Asthma: (11) Atrial fibrillation: (12) Acute respiratory failure with hypoxia and hypercapnia: (13) CAD (coronary artery disease): (14) Acute encephalopathy: (15) CO2 narcosis: (16) Uremia: (17) Aspiration pneumonia: (18) NSTEMI (non-ST elevated myocardial infarction): (19) Hyperbilirubinemia: (20) Severe muscle deconditioning: (21) Goals of care, counseling/discussion: (22) Fluid overload: (23) Acute cholecystitis: Plan Shock -Resolved off pressors -Likely multifactorial -Possibly secondary to adrenal insufficiency? Cortisol within normal limits, status post hydrocortisone -Concerns for septic shock, does have right upper quadrant tenderness, elevated T. bili, right upper quadrant ultrasound shows gallbladder wall thickening, a -Concerns for septic shock sec to aspiration pneumonia -Continue broad-spectrum antibiotic therapy vancomycin, meropenem -Sputum cultures, blood cultures, urine cultures Patient's left IV infiltrated, with Levophed, will have to keep a very close eye on that site, monitor for necrosis, -We will consider Nitropaste depending on clinical progress NSTEMI -Likely supply demand ischemia from abnormal lying respiratory failure, type II NSTEMI -However cannot rule out underlying cardiac etiology given underlying risk factors -Serial EKGs serial troponins telemetry monitoring -Repeat cardiac echo Altered mental status -From uremia -From septic shock -From aspiration pneumonia -acute cholecystitis -From hypercapnia -Neurochecks, aspiration precautions, night stroke scale, CT of the head Acute on chronic hypercapnic respiratory failure -Likely multifactorial -Aspiration pneumonia, from chronic inability to clear airway secretions -Obesity hypoventilation syndrome -Fluid overload from systolic diastolic CHF -Acute on chronic renal failure, and fluid overload -Severe deconditioning -receiving crrt Aspiration pneumonia -Aspiration precautions -Antibiotics as above Acute cholecystitis -not good candidate for surgery, will discuss with family -continue antibiotic therapy Acute on chronic anemia -As below -Protonix, Carafate Acute on chronic thrombocytopenia -As below Severe deconditioning Systolic and diastolic CHF exacerbation -Consult nephrology for CRRT Acute on chronic renal failure, dialysis dependent -Consult nephrology for CRRT Right pleural effusion -monitor Chronic right hemidiaphragmatic elevation, with chronic aspiration, causing endobronchial mucosal edema, trouble clearing airway secretions Poor esophageal motility, poor pharyngeal function Chronic aspiration Severe deconditioning BiPAP dependence COPD, BiPAP dependent Sick sinus syndrome pacemaker in place Atrial fibrillation, not on candidate coagulation was on Coumadin in the past History of bicytopenia which persist -There was an attempt to transfer her to tertiary level center, initially [facility] was called for concerns for microangiopathic hemolytic anemia due to her low haptoglobin, and schistocytes and dariana cells seen on a peripheral smear however they had recommended for her to be transferred to tertiary level center after discussion with hard candy spinner -She did receive transfusion during her last hospitalization, however due to improvement of her anemia, and her platelet count, transfer was canceled -Seems as if she also received transfusions at [facility] -We will repeat haptoglobin, LDH, peripheral smear, -Monitor hemoglobin History of CAD Goals of care discussion -Had extensive discussion goals of care with patient's -Family is okay with defibrillation, and drugs per ACLS, in ICU admission -Family declines chest compressions, declines intubation -Above all if she starts to suffer, that they tell me that they are good Christians, and they are not afraid of , so they do not want her to suffer -possibly proceeding to hospice Attestations Medical Necessity Statement*: Patient requires hospitalization for acute respiratory failure, fluid overload, dependent on CRRT, shock, acute cholecystitis, aspiration pneumonia Coding Level of Care Code Critical Care >/= 30 minutes Critical care time (in minutes): 50 The high probability of a clinically significant, sudden or life threatening deterioration, as referenced in this documentation, required my full and direct attention, intervention and personal management. The critical care time shown is in addition to time spent performing any reported separately billable procedures and includes the following: [x] Data and vital sign review and interpretation [x ] Patient assessment, examination and intervention [x] Medication orders and management [x] Patient/Family updates as able [x] Care Coordination and Documentation. Diagnoses Septic shock A41.9; R65.21 ESRD on dialysis N18.6; Z99.2 Acute exacerbation of congestive heart failure I50.9 Hypotension I95.9 Pacemaker syndrome I97.190 Acquired elevated hemidiaphragm J98.6 COPD (chronic obstructive pulmonary disease) J44.9 Diastolic heart failure I50.30 Bicytopenia D75.89 Asthma J45.909 Atrial fibrillation I48.91 Acute respiratory failure with hypoxia and hypercapnia J96.01; J96.02 CAD (coronary artery disease) I25.10 Acute encephalopathy G93.40 CO2 narcosis R06.89 Uremia N19 Aspiration pneumonia J69.0 NSTEMI (non-ST elevated myocardial infarction) I21.4 Hyperbilirubinemia E80.6 Severe muscle deconditioning R29.898 Goals of care, counseling/discussion Z71.89 Fluid overload E87.70 Acute cholecystitis K81.0
[2022-07-28 20:57] LABS: Albumin Level 5.4 g/dL (3.5-5.2); Anion Gap 16.3 (5-19); Blood Urea Nitrogen 16 mg/dL (8-23); Calcium 8.6 mg/dL (8.5-10.5); Carbon Dioxide 26 mmol/L (22-29); Chloride 100 mmol/L (98-107); Glucose 136 mg/dL (65-115); Magnesium 2.5 mg/dL (1.7-2.3); Phosphorus 1.9 mg/dL (2.5-4.5); Potassium 4.3 mmol/L (3.5-5.1); Sodium 138 mmol/L (136-145)
[2022-07-29] VITALS (24 sets, daily range): BP systolic 74–118; BP diastolic 57–83; PULSE 80–91; RESP 13–25; TEMP 34.3–36.5; O2SAT 92–100
[2022-07-29] MEDS: PrismaSol BGK 4/2.5 - 5,000 mL Bag 5000 ML CRRT ×5 (01:45→06:12)
[2022-07-29] MEDS: vancomycin 1,000 MG in sodium chloride 0.9% 250 ML 250 MG IV (01:57)
[2022-07-29] MEDS: albumin 25 G/100 ML BAG 60 G IV (01:57)
[2022-07-29 03:32] LABS: Basophils % 0.2 %; Hematocrit 27.5 % (37.0-47.0); Hemoglobin 7.8 g/dL (11.5-15.3); Lymphocytes # 0.6 10^3/uL (0.8-4.8); Lymphocytes % 11.4 %; Mean Corpuscular HGB Conc 28.4 g/dL (30.0-36.0); Mean Corpuscular Hemoglobin 27.8 pg (28.0-34.0); Mean Corpuscular Volume 97.9 fl (81-99); Mean Platelet Volume 13.4 fL (7.4-10.4); Monocytes # 0.4 10^3/uL (0.2-0.9); Monocytes % 6.7 %; Neutrophils # 4.35 10^3/uL (1.8-7.7); Nucleated Red Blood Cells # 0.2 /100WBC; Nucleated Red Blood Cells % 2.8 %; Platelet Count 107 10^3/cmm (130-400); Red Blood Count 2.81 10^6/uL (4.1-5.3); Red Cell Distribution Width 23.8 % (12.1-15.1); White Blood Count 5.4 10^3/uL (4.0-10.0)
[2022-07-29 03:46] LABS: INR 1.44 (0.8-1.2)
[2022-07-29 03:51] LABS: Alanine Aminotransferase 8 U/L (0-33); Albumin Level 5.2 g/dL (3.5-5.2); Alkaline Phosphatase 91 U/L (35-105); Anion Gap 15.2 (5-19); Aspartate Amino Transferase 24 U/L (0-32); Blood Urea Nitrogen 11 mg/dL (8-23); C Reactive Protein 22.1 mg/L (0.0-4.9); Carbon Dioxide 26 mmol/L (22-29); Chloride 100 mmol/L (98-107); Globulin 2.5 g/dL (1.3-4.6); Glucose 109 mg/dL (65-115); Magnesium 2.5 mg/dL (1.7-2.3); Osmolality Calculated 284 mOsm/kg (285-295); Phosphorus 1.6 mg/dL (2.5-4.5); Potassium 4.2 mmol/L (3.5-5.1); Sodium 137 mmol/L (136-145); Total Bilirubin 1.9 mg/dL (0.15-1.2); Total Protein 7.7 g/dL (6.6-8.7)
[2022-07-29 03:53] LABS: Lactate (Lactic Acid level) 1.8 mmol/L (0.5-2.2)
[2022-07-29 03:56] LABS: Albumin Level 5.4 g/dL (3.5-5.2); Anion Gap 17.3 (5-19); Blood Urea Nitrogen 11 mg/dL (8-23); Calcium 8.9 mg/dL (8.5-10.5); Carbon Dioxide 25 mmol/L (22-29); Chloride 99 mmol/L (98-107); Glucose 107 mg/dL (65-115); Magnesium 2.5 mg/dL (1.7-2.3); Phosphorus 1.4 mg/dL (2.5-4.5); Potassium 4.3 mmol/L (3.5-5.1); Sodium 137 mmol/L (136-145)
[2022-07-29 04:02] LABS: NT Pro B Type Natriuretic Pept 6849 pg/mL (0-450); Procalcitonin 0.72 ng/mL (0-0.5)
[2022-07-29 04:13] LABS: Anion Gap 16.3 (5-19); Blood Urea Nitrogen 11 mg/dL (8-23); Calcium 8.9 mg/dL (8.5-10.5); Carbon Dioxide 25 mmol/L (22-29); Chloride 98 mmol/L (98-107); Creatine Phosphokinase 16 U/L (26-192); Glucose 109 mg/dL (65-115); Osmolality Calculated 280 mOsm/kg (285-295); Potassium 4.3 mmol/L (3.5-5.1); Sodium 135 mmol/L (136-145)
[2022-07-29] MEDS: pantoprazole 40 mg SDV IVP (05:53)
[2022-07-29] MEDS: heparin 5,000 unit/mL INJ 1 mL 5000 UNIT SUBCUT (05:53)
[2022-07-29] MEDS: meropenem 500 MG in sodium chloride 0.9% (plus) 50 ML 100 MG IV (05:53)
[2022-07-29] MEDS: lactulose oral liq 20 gm/30 mL UDC PO (08:26)
[2022-07-29 09:13] LABS: Albumin Level 5.3 g/dL (3.5-5.2); Anion Gap 15.2 (5-19); Blood Urea Nitrogen 11 mg/dL (8-23); Carbon Dioxide 26 mmol/L (22-29); Chloride 98 mmol/L (98-107); Glucose 99 mg/dL (65-115); Magnesium 2.5 mg/dL (1.7-2.3); Phosphorus 1.4 mg/dL (2.5-4.5); Potassium 4.2 mmol/L (3.5-5.1); Sodium 135 mmol/L (136-145)
--- NOTE | 2022-07-29 09:35 | PM.PN ---
Subjective Subjective: RN reported that pt family considering comfort care Medications: Reviewed: Yes Vitals/I&O/Wt Last Vital Signs Temp 97.7 F 07/29/22 08:00 Pulse 80 07/29/22 04:30 Resp 20 H 07/29/22 04:30 BP 97/64 07/29/22 04:30 Pulse Ox 100 07/29/22 04:30 O2 Del Method BiPAP 07/27/22 20:00 O2 Flow Rate 4 07/27/22 16:45 FiO2 30 07/29/22 08:00 07/28/22 07/29/22 07/29/22 22:59 06:59 14:59 Intake Total 229.464 / 229.464 350 / 579.464 100 / 100 Output Total 10 Balance 219.464 / 199.464 350 / 549.464 90 / 90 Weight last 48 hrs Weight 88.904 kg Weight 83.915 kg Weight 81.647 kg Physical Exam Narrative: deferrred Data 07/29/22 02:51 07/29/22 08:38 Micro: Microbiology 07/27/22 15:00 Blood Culture - Preliminary Blood NEGATIVE TO DATE 07/27/22 13:50 Blood Culture - Preliminary Blood NEGATIVE TO DATE A&P Assessment and plan (1) Kidney failure: Plan 1. ESRD: Recently started on dialysis for volume management, but patient not tolerating hemodialysis due to low blood pressures. Now presented with volume overload and started on CRRT. UF as tolerated. -on midodrine, IV albumin as needed -Given multiple comorbidities and baseline low blood pressures patient will not be a long-term hemodialysis candidate and further goals of care discussions would be appropriate. family considering comfort care. will DC CRRT 2. Acute on chronic respiratory failure: Multifactorial secondary to COPD, CKD, CHF, on BiPAP currently. Patient evaluated using audiovisual cart. Time spent 45 minutes Attestations Medical Necessity Statement*: per medicine Coding Level of Care Code Acute Code for Chg Fwd Diagnoses Kidney failure N19
--- NOTE | 2022-07-29 09:45 | PC.CHAP ---
Pastoral Care Encounter/Spiritual Assessment Type of Contact [] Declined treater visit [] Patient/Family/Request visit [] Outpatient visit [] Follow-up visit [] Physician referral [] Code/Alert [x] Routine visit [] Staff referral [] Actively dying [] Patient sleeping [x] Family support [] [] Out of room [] Palliative care [] [] Receiving care in room [] Pre-surgical visit [] Trauma [] Long length of stay [] ICU visit [x] Other: have met with family daily ... waiting on doctors visit Relational/Emotional Strength [] Patient feels connected with others/family/visitors/staff [] Distress [] Loneliness/isolation [] Abandonment Spirituality of Patient x[] Person of Evi [] Attends Alevism of their Evi [x] Believes in Prayer [] Reads Bible or Jain materials [] There are Spiritual issues to be addressed Physician General Internal Medicine Interventions [x] Prayer [] Active listening [] Non-anxious presence [] Spiritual/emotional support [] Crisis/trauma care [] Spiritual counseling [] Bereavement support [] Provided bereavement packet [] Provided Bible/devotional materials [] Provided toy/stuffed animal, coloring book to patient or family member [] Provided Communion [] Anointing/[place] [] Salvation [x] Completed spiritual assessment [] Other: Impact on Illness or Injury [] Angry [] Fearful [] Anxious [] Often cries [] Exhaustion [] Unable to work [] Unable to attend catholic [] Unable to walk/stand [] Unable to read [] Unable to drive [] Unable to eat/drink [] Unable to sleep [] Unable to be with family [] Patient intubated [] Other: Summary Time spent with patient
--- NOTE | 2022-07-29 14:21 | PM.PN ---
Subjective Subjective: - Patient was seen early this morning, nursing staff at bedside, patient's family at bedside, patient's at bedside -Patient and family had voiced to nursing staff that she wanted dialysis to be stopped and she just wanted to be comfortable, family and patient were leaning towards comfort care -Overnight, patient has been receiving CRRT, she is off pressors, she is much more alert awake to person, to place, to time, she tells me that she wants to go home, she does not want to have dialysis anymore -I had a detailed discussion with patient, about her shock, her intolerance to dialysis, and that she needs to have CRRT in the hospital, she has not been tolerating dialysis as outpatient due to persistent episodes of hypotension, she is now here in the hospital due to low blood pressures, component of septic shock related to aspiration pneumonia, acute cholecystitis, she also has significant deconditioning, protein calorie malnutrition, poor appetite, weight loss, is bedbound, poor mobility -Patient tells me that she just wants to go home, she wants to be comfortable, she does not want to be here anymore she does not want to have dialysis anymore -I discussed morbidity and mortality associated with not receiving dialysis, her no family voiced understanding, all questions answered, they want dialysis and CRRT to be stopped -I discussed options available to patient, including comfort care, she tells me she wants to go home and just be comfortable, and that is what her family specifically that is what her wants -Her tells me that there are good christianss, and they believe that it is her time, and they just want her to be comfortable -They do want her to be in the hospital for 48 hours on comfort care, and then come home if she were to last that long -I had a detailed discussion with patient and family about what comfort care entails in the hospital, and at home, they voiced understanding, all questions answered, agreed to proceed with comfort care -Above all they just want Megan to be comfortable, ease her pain ease her suffering, they want us to stop medical interventions okay with oral antibiotics for now -We will start her on comfort care, move her to the second floor for a private room, watch her for 48 hours if she were to last longer than that family are agreeable to take her home on home comfort care Vitals/I&O/Wt Last Vital Signs Temp 93.7 F L 07/29/22 12:00 Pulse 80 07/29/22 04:30 Resp 20 H 07/29/22 04:30 BP 74/62 07/29/22 12:00 Pulse Ox 100 07/29/22 04:30 O2 Del Method BiPAP 07/27/22 20:00 O2 Flow Rate 4 07/27/22 16:45 FiO2 30 07/29/22 12:00 07/28/22 07/29/22 07/29/22 22:59 06:59 14:59 Intake Total 229.464 / 229.464 350 / 579.464 200 / 200 Output Total 20 / 20 Balance 219.464 / 199.464 350 / 549.464 180 / 180 Weight last 48 hrs Weight 88.904 kg Weight 83.915 kg Physical Exam Const: COMMON NORMALS: no acute distress and patient oriented x3 NUTRITIONAL APPEARANCE: cachectic ORIENTATION/CONSCIOUSNESS: Yes awake, Yes oriented to person, Yes oriented to place and Yes oriented to time Resp: COMMON NORMALS: normal respiratory effort, No retractions, No use of accessory muscles and clear to auscultation bilaterally AUSCULTATION: clear to auscultation bilaterally Cardio: COMMON NORMALS: regular rate, regular rhythm, S1 normal heart sound present and S2 normal heart sound present RATE: regular rate RHYTHM: regular rhythm HEART SOUNDS: S1 normal heart sound present and S2 normal heart sound present GI: COMMON NORMALS: Normal to inspection, nondistended, normoactive bowel sounds present and non-tender Extremity: COMMON NORMALS: no pedal edema Neuro: COMMON NORMALS: patient oriented x3 SENSORIUM/ORIENTATION: Yes oriented to person, Yes oriented to place and Yes oriented to time Psych: COMMON NORMALS: mental status grossly normal Data 07/29/22 02:51 07/29/22 08:38 Micro: Microbiology 07/27/22 15:00 Blood Culture - Preliminary Blood NEGATIVE TO DATE 07/27/22 13:50 Blood Culture - Preliminary Blood NEGATIVE TO DATE A&P Assessment and plan (1) Septic shock: (2) ESRD on dialysis: (3) Acute exacerbation of congestive heart failure: (4) Hypotension: (5) Pacemaker syndrome: (6) Acquired elevated hemidiaphragm: (7) COPD (chronic obstructive pulmonary disease): (8) Diastolic heart failure: (9) Bicytopenia: (10) Asthma: (11) Atrial fibrillation: (12) Acute respiratory failure with hypoxia and hypercapnia: (13) CAD (coronary artery disease): (14) Acute encephalopathy: (15) CO2 narcosis: (16) Uremia: (17) Aspiration pneumonia: (18) NSTEMI (non-ST elevated myocardial infarction): (19) Hyperbilirubinemia: (20) Severe muscle deconditioning: (21) Goals of care, counseling/discussion: (22) Fluid overload: (23) Acute cholecystitis: Plan Proceeding with comfort care, will move to second floor, private room, start comfort care orders, switch to p.o. antibiotics Shock -Resolved off pressors -Likely multifactorial -Possibly secondary to adrenal insufficiency? Cortisol within normal limits, status post hydrocortisone -Concerns for septic shock, does have right upper quadrant tenderness, elevated T. bili, right upper quadrant ultrasound shows gallbladder wall thickening, a -Concerns for septic shock sec to aspiration pneumonia -Continue broad-spectrum antibiotic therapy vancomycin, meropenem -Sputum cultures, blood cultures, urine cultures Patient's left IV infiltrated, with Levophed, will have to keep a very close eye on that site, monitor for necrosis, -We will consider Nitropaste depending on clinical progress NSTEMI -Likely supply demand ischemia from abnormal lying respiratory failure, type II NSTEMI -However cannot rule out underlying cardiac etiology given underlying risk factors -Serial EKGs serial troponins telemetry monitoring -Repeat cardiac echo Altered mental status -From uremia -From septic shock -From aspiration pneumonia -acute cholecystitis -From hypercapnia -Neurochecks, aspiration precautions, night stroke scale, CT of the head Acute on chronic hypercapnic respiratory failure -Likely multifactorial -Aspiration pneumonia, from chronic inability to clear airway secretions -Obesity hypoventilation syndrome -Fluid overload from systolic diastolic CHF -Acute on chronic renal failure, and fluid overload -Severe deconditioning -receiving crrt Aspiration pneumonia -Aspiration precautions -Antibiotics as above Acute cholecystitis -not good candidate for surgery, will discuss with family -continue antibiotic therapy Acute on chronic anemia -As below -Protonix, Carafate Acute on chronic thrombocytopenia -As below Severe deconditioning Systolic and diastolic CHF exacerbation -Consult nephrology for CRRT Acute on chronic renal failure, dialysis dependent -Consult nephrology for CRRT Right pleural effusion -monitor Chronic right hemidiaphragmatic elevation, with chronic aspiration, causing endobronchial mucosal edema, trouble clearing airway secretions Poor esophageal motility, poor pharyngeal function Chronic aspiration Severe deconditioning BiPAP dependence COPD, BiPAP dependent Sick sinus syndrome pacemaker in place Atrial fibrillation, not on candidate coagulation was on Coumadin in the past History of bicytopenia which persist -There was an attempt to transfer her to tertiary level center, initially [facility] was called for concerns for microangiopathic hemolytic anemia due to her low haptoglobin, and schistocytes and dariana cells seen on a peripheral smear however they had recommended for her to be transferred to tertiary level center after discussion with program manager -She did receive transfusion during her last hospitalization, however due to improvement of her anemia, and her platelet count, transfer was canceled -Seems as if she also received transfusions at [facility] -We will repeat haptoglobin, LDH, peripheral smear, -Monitor hemoglobin History of CAD Goals of care discussion -Comfort care Attestations Medical Necessity Statement*: Patient requires hospitalization for comfort care Coding Level of Care Code 17558 High Time for a total of 70 minutes, includes reviewing past or interval history, examining/interviewing patient, placing orders, counseling patient/family/other support, updating patient/family/other support, discussing plan of care with staff, communicating with other healthcare providers, documenting encounter and coordinating care Diagnoses Septic shock A41.9; R65.21 ESRD on dialysis N18.6; Z99.2 Acute exacerbation of congestive heart failure I50.9 Hypotension I95.9 Pacemaker syndrome I97.190 Acquired elevated hemidiaphragm J98.6 COPD (chronic obstructive pulmonary disease) J44.9 Diastolic heart failure I50.30 Bicytopenia D75.89 Asthma J45.909 Atrial fibrillation I48.91 Acute respiratory failure with hypoxia and hypercapnia J96.01; J96.02 CAD (coronary artery disease) I25.10 Acute encephalopathy G93.40 CO2 narcosis R06.89 Uremia N19 Aspiration pneumonia J69.0 NSTEMI (non-ST elevated myocardial infarction) I21.4 Hyperbilirubinemia E80.6 Severe muscle deconditioning R29.898 Goals of care, counseling/discussion Z71.89 Fluid overload E87.70 Acute cholecystitis K81.0
[2022-07-29] MEDS: metroNIDAZOLE 500 MG Tablet PO (20:39)
[2022-07-29] MEDS: ciprofloxacin 500 mg Tablet PO (20:39)
[2022-07-29] MEDS: morphine 4 mg/mL SDV 1 mL 1 MG IVP (20:50)
[2022-07-30] VITALS (9 sets, daily range): BP systolic 80–116; BP diastolic 56–80; PULSE 79–84; RESP 16–20; TEMP 36.4–36.6; O2SAT 95–100
[2022-07-30] MEDS: HYDROcodone-acetaminophen 5-325 mg Tablet 1 TAB PO (01:38)
[2022-07-30] MEDS: morphine 4 mg/mL SDV 1 mL 1 MG IVP ×2 (04:39→19:40)
[2022-07-30] MEDS: sodium chloride 0.9 % (flush) syringe 10 mL IV ×2 (04:40→18:32)
[2022-07-30] MEDS: lactulose oral liq 20 gm/30 mL UDC PO (09:57)
[2022-07-30] MEDS: ciprofloxacin 500 mg Tablet PO (09:57)
[2022-07-30] MEDS: metroNIDAZOLE 500 MG Tablet PO (09:57)
[2022-07-30] MEDS: morphine 4 mg/mL SDV 1 mL 0.5 MG IVP (10:56)
--- NOTE | 2022-07-30 11:03 | PC.NURSE ---
Morphine was pulled by Jonathan Alexander LPN under the 1 mg order with the verbal order from Dr. Morgan to give her a one time dose of 0.5 mg per patient/family's request. I placed a one time order from Dr. Morgan for this change, scanned, and administered the ordered 0.5 mg one time order. Upon attempting to waste in the Pyxis, med had already been wasted on the 1 mg order with 3 mg as waste, documented by Jonathan Alexander LPN. I called pharmacy and spoke with Anthony Sinha, wasted actual dose of 3.5 mg with Juan Luis LPN as witness in sharps container and Rx Destroyer bottle. Informed Jnoathan Alexander LPN of above information.
[2022-07-30] MEDS: lanolin oint 7 gm 1 APPLIC TOPICAL (13:46)
--- NOTE | 2022-07-30 15:44 | PC.SOCIAL ---
IMM Update pg 2 of IMM updated and reviewed w/ patient. Copy provided and copy dated, initialed and placed in chart.
--- NOTE | 2022-07-30 17:42 | PM.PN ---
Subjective Subjective: Patient was currently seen, she is currently on comfort care, family tells me that she was very reluctant to use pain medications overnight, took a lot of convincing, this morning she tells me that she does hurt, but she does not really want to take pain medication, but eventually with encouragement of family member she is agreeable to try half a milligram of morphine for her pain she is experiencing Vitals/I&O/Wt Last Vital Signs Temp 97.7 F 07/30/22 16:00 Pulse 80 07/30/22 16:00 Resp 16 07/30/22 16:00 BP 105/70 07/30/22 16:00 Pulse Ox 100 07/30/22 16:00 O2 Del Method Nasal Cannula 07/30/22 16:00 O2 Flow Rate 2 07/30/22 16:00 FiO2 30 07/29/22 12:00 07/30/22 07/30/22 07/30/22 06:59 14:59 22:59 Intake Total 0 / 370 120 / 120 Output Total 0 / 60 Balance 0 / 310 120 / 120 Weight last 48 hrs Weight 88.904 kg Physical Exam Const: COMMON NORMALS: no acute distress Resp: COMMON NORMALS: normal respiratory effort, No retractions, No use of accessory muscles and clear to auscultation bilaterally AUSCULTATION: clear to auscultation bilaterally Cardio: COMMON NORMALS: regular rate, regular rhythm, S1 normal heart sound present and S2 normal heart sound present RATE: regular rate RHYTHM: regular rhythm HEART SOUNDS: S1 normal heart sound present and S2 normal heart sound present GI: COMMON NORMALS: Normal to inspection, nondistended, normoactive bowel sounds present and non-tender Extremity: COMMON NORMALS: no pedal edema Urinary Catheter Management: Weber: Cath Placed During This Visit: no Reason for Continuing Indwelling Catheter: Hospice/Comfort/Palliative Care Data 07/29/22 02:51 07/29/22 08:38 A&P Assessment and plan (1) Need for comfort care: (2) ESRD on dialysis: (3) Acute exacerbation of congestive heart failure: (4) Hypotension: (5) Pacemaker syndrome: (6) Acquired elevated hemidiaphragm: (7) COPD (chronic obstructive pulmonary disease): (8) Diastolic heart failure: (9) Bicytopenia: (10) Asthma: (11) Atrial fibrillation: (12) Acute respiratory failure with hypoxia and hypercapnia: (13) CAD (coronary artery disease): (14) Acute encephalopathy: (15) CO2 narcosis: (16) Uremia: (17) Aspiration pneumonia: (18) NSTEMI (non-ST elevated myocardial infarction): (19) Hyperbilirubinemia: (20) Severe muscle deconditioning: (21) Goals of care, counseling/discussion: (22) Fluid overload: (23) Acute cholecystitis: Plan Currently on comfort care, second floor, private room, comfort care orders will have case management come by and see patient tomorrow and family tomorrow about outpatient comfort care, selecting companies Shock -Resolved off pressors -Likely multifactorial -Possibly secondary to adrenal insufficiency? Cortisol within normal limits, status post hydrocortisone -Concerns for septic shock, does have right upper quadrant tenderness, elevated T. bili, right upper quadrant ultrasound shows gallbladder wall thickening, a -Concerns for septic shock sec to aspiration pneumonia -Continue broad-spectrum antibiotic therapy vancomycin, meropenem -Sputum cultures, blood cultures, urine cultures Patient's left IV infiltrated, with Levophed, will have to keep a very close eye on that site, monitor for necrosis, -We will consider Nitropaste depending on clinical progress NSTEMI -Likely supply demand ischemia from abnormal lying respiratory failure, type II NSTEMI -However cannot rule out underlying cardiac etiology given underlying risk factors -Serial EKGs serial troponins telemetry monitoring -Repeat cardiac echo Altered mental status -From uremia -From septic shock -From aspiration pneumonia -acute cholecystitis -From hypercapnia -Neurochecks, aspiration precautions, night stroke scale, CT of the head Acute on chronic hypercapnic respiratory failure -Likely multifactorial -Aspiration pneumonia, from chronic inability to clear airway secretions -Obesity hypoventilation syndrome -Fluid overload from systolic diastolic CHF -Acute on chronic renal failure, and fluid overload -Severe deconditioning -receiving crrt Aspiration pneumonia -Aspiration precautions -Antibiotics as above Acute cholecystitis -not good candidate for surgery, will discuss with family -continue antibiotic therapy Acute on chronic anemia -As below -Protonix, Carafate Acute on chronic thrombocytopenia -As below Severe deconditioning Systolic and diastolic CHF exacerbation -Consult nephrology for CRRT Acute on chronic renal failure, dialysis dependent -Consult nephrology for CRRT Right pleural effusion -monitor Chronic right hemidiaphragmatic elevation, with chronic aspiration, causing endobronchial mucosal edema, trouble clearing airway secretions Poor esophageal motility, poor pharyngeal function Chronic aspiration Severe deconditioning BiPAP dependence COPD, BiPAP dependent Sick sinus syndrome pacemaker in place Atrial fibrillation, not on candidate coagulation was on Coumadin in the past History of bicytopenia which persist -There was an attempt to transfer her to tertiary level center, initially [facility] was called for concerns for microangiopathic hemolytic anemia due to her low haptoglobin, and schistocytes and dariana cells seen on a peripheral smear however they had recommended for her to be transferred to tertiary level center after discussion with security system installer -She did receive transfusion during her last hospitalization, however due to improvement of her anemia, and her platelet count, transfer was canceled -Seems as if she also received transfusions at [facility] -We will repeat haptoglobin, LDH, peripheral smear, -Monitor hemoglobin History of CAD Goals of care discussion -Comfort care Spoke to patient, spoke to family members, spoke to nursing staff, spoke to case management Attestations Medical Necessity Statement*: Patient currently on inpatient comfort care Diagnoses Need for comfort care ESRD on dialysis N18.6; Z99.2 Acute exacerbation of congestive heart failure I50.9 Hypotension I95.9 Pacemaker syndrome I97.190 Acquired elevated hemidiaphragm J98.6 COPD (chronic obstructive pulmonary disease) J44.9 Diastolic heart failure I50.30 Bicytopenia D75.89 Asthma J45.909 Atrial fibrillation I48.91 Acute respiratory failure with hypoxia and hypercapnia J96.01; J96.02 CAD (coronary artery disease) I25.10 Acute encephalopathy G93.40 CO2 narcosis R06.89 Uremia N19 Aspiration pneumonia J69.0 NSTEMI (non-ST elevated myocardial infarction) I21.4 Hyperbilirubinemia E80.6 Severe muscle deconditioning R29.898 Goals of care, counseling/discussion Z71.89 Fluid overload E87.70 Acute cholecystitis K81.0
[2022-07-31 01:46] VITALS: RESP 15
[2022-07-31] MEDS: morphine 4 mg/mL SDV 1 mL 1 MG IVP ×2 (01:46→12:22)
[2022-07-31] MEDS: sodium chloride 0.9 % (flush) syringe 10 mL IV (03:55)
[2022-07-31 04:00] VITALS: PULSE 80; RESP 14; O2SAT 100
[2022-07-31 06:00] VITALS: PULSE 80
[2022-07-31] MEDS: ciprofloxacin 500 mg Tablet PO (07:53)
[2022-07-31] MEDS: metroNIDAZOLE 500 MG Tablet PO (07:53)
[2022-07-31 08:00] VITALS: BP 104/69; PULSE 80; RESP 16; TEMP 36.3; O2SAT 100
--- NOTE | 2022-07-31 11:34 | P.DS_ITS ---
Discharge Providers Date of Admission: 07/27/22 17:31 Date of Discharge: July 31, 2022 Attending Provider at Admission: Nickolas Morgan MD Attending Provider at Discharge: Nickolas Morgan MD Primary Care Provider: Neeraj Cardoza MD Diagnoses at Discharge Discharge Diagnosis (1) Need for comfort care: Status: Acute (2) ESRD on dialysis: Status: Acute (3) Acute exacerbation of congestive heart failure: Status: Acute (4) Hypotension: Status: Acute (5) Pacemaker syndrome: Status: Acute (6) Acquired elevated hemidiaphragm: Status: Acute (7) COPD (chronic obstructive pulmonary disease): Status: Acute (8) Diastolic heart failure: Status: Acute (9) Bicytopenia: Status: Acute (10) Asthma: Status: Acute (11) Atrial fibrillation: Status: Acute (12) Acute respiratory failure with hypoxia and hypercapnia: Status: Acute (13) CAD (coronary artery disease): Status: Acute (14) Acute encephalopathy: Status: Acute (15) CO2 narcosis: Status: Acute (16) Uremia: Status: Acute (17) Aspiration pneumonia: Status: Acute (18) NSTEMI (non-ST elevated myocardial infarction): Status: Acute (19) Hyperbilirubinemia: Status: Acute (20) Severe muscle deconditioning: Status: Acute (21) Goals of care, counseling/discussion: Status: Acute (22) Fluid overload: Status: Acute (23) Acute cholecystitis: Status: Acute Reason for Visit Reason for Visit: low bp Hospital Course Hospital Course Megan Das is a 82 year old female with a past medical history of ischemic cardiomyopathy, systolic and diastolic CHF, history of moderate to severe tricuspid valve regurg, history of chronic atrial fibrillation not on anticoagulation?,? History of sick sinus syndrome status post pacemaker placement, history of peptic ulcer disease, history of hypertension, asthma, moderate pulmonary hypertension, history of COPD, apparently she has had a hospitalization at [facility] for anemia receiving 2 units PRBC has a history of chronic right hemidiaphragmatic elevation, status post bronchoscopy, history of obesity, history of deconditioning, history of chronic aspiration causing endobronchial mucosal edema, trouble clearing her airway secretions history of poor esophageal motility, history of BiPAP dependence at home, history of poor airway clearance, she recently had a prolonged hospitalization which was complicated with septic shock, worsening her renal function requiring dialysis, who presents to [facility] due to increased confusion, poor appetite, decreased mobility, and low blood pressures.? Currently patient is alert to person, not to place, not to time she can follow some commands such as squeezing my fingers, but cannot really answer questions, at times she stares off into the distance, and does not answer questions.? Most of the history was provided by patient's at bedside.? He tells me that before her hospitalization last time, she used to ambulate with a walker, she has had some cognitive decline, episodes of confusion, she has had some poor appetite for some time.? After she hospitalized she ambulates a bit but is mostly bedbound, her appetite has drastically declined, she has not had any falls her mentation was also declined, she can follow commands, but does have episodes of confusion, she does have trouble clearing her airways, has a chronic cough, so she tends to not answer questions due to her cough, on Wednesday she did not receive dialysis due to to low blood pressures, she was actually here on Wednesday due to low blood pressures, and then again today she was seen by her home health care nurse, and she had low blood pressures, so she was sent here to the emergency room.? She according to family has not really complained of anything, no nausea, no vomiting, no abdom inal pain, no diarrhea she has been urinating less, she has not urinated much according to family in the last 24 hours.? No chest pain complaints, she has looked more short of breath and more edematous according to family members Patient was admitted to [facility] for shock, multifactorial, from sepsis, aspiration pneumonia, acute cholecystitis, adrenal insufficiency, NSTEMI, acute hypercapnic respiratory failure, acute on chronic anemia, systolic diastolic CHF exacerbation, acute on chronic renal failure, intolerance to dialysis due to persistent hypotension, severe deconditioning, severe protein calorie malnutrition, uremia, altered mental status. Patient was admitted to the intensive care unit, received broad-spectrum antibiotic therapy, CRRT treatment, Levophed therapy, fluid removal. After extensive discussion with patient and family, due to her intolerance to outpatient dialysis, her developing hypotension with dialysis, her poor functional state, severe protein malnutrition, deconditioning, and her desire to not receive dialysis anymore, her desire to go home and be with family, her complicated medical history, underlying extensive medical problems, patient and family proceeded with comfort care, she received 2 days of comfort care here in the hospital, was discharged home on hospice. Physical Exam Const: COMMON NORMALS: no acute distress Resp: COMMON NORMALS: normal respiratory effort, No retractions, No use of accessory muscles and clear to auscultation bilaterally AUSCULTATION: clear to auscultation bilaterally Cardio: COMMON NORMALS: regular rate, regular rhythm, S1 normal heart sound present and S2 normal heart sound present RATE: regular rate RHYTHM: regular rhythm HEART SOUNDS: S1 normal heart sound present and S2 normal heart sound present GI: COMMON NORMALS: Normal to inspection, nondistended, normoactive bowel sounds present and non-tender Extremity: COMMON NORMALS: no pedal edema Urinary Catheter Management: Weber: Cath Placed During This Visit: no Reason for Continuing Indwelling Catheter: Hospice/Comfort/Palliative Care Discharge Data Studies Completed and Pending Completed Studies During Hospitalization Category Date Time Status CT angio chest w abd pel w con Stat Cat Scan 07/27/22 16:[address] head wo con* [id number] Stat Cat Scan 07/27/22 17:18 Completed XR chest 1V [id number] Stat Exams 07/27/22 13:01 Completed XR chest 1V portable [id number] Routine Exams 07/28/22 07:00 Completed XR chest 1V portable [id number] Stat Exams 07/27/22 19:22 [place] [id number] Stat Ultrasound 07/27/22 16:42 Completed US gall bladder [id number] Stat Ultrasound 07/27/22 17:18 Completed Pending at discharge Category Date Time Status Blood Culture Stat Lab 07/27/22 15:00 Results Radiology Impressions Chest/Abdomen/Pelvis CT 07/27/22 16:42 IMPRESSION: 1. No definite PE. The exam is challenging, as above. 2. RUL atelectasis or other mass lesion; in this area, the arteries are particularly difficult to evaluate due to crowding and loss of volume. 3. Moderate right and trace left effusions with areas of mainly bilateral mid to lower lung atelectasis or developing pneumonia. See above. Recommend 1-2 month follow-up. 4. Multiple chronic findings. Large heart with mild venous congestion. 5. Abdomen/pelvis CT report below. IMPRESSION: 1. No small bowel obstruction, abscess or free air. 2. Diffuse 3rd spacing of fluid with [id number] ascites, anasarca, and mesenteric edema. 3. Cholelithiasis, fecal filled colon, and other chronic findings. 4. See above chest CT report for lung findings. COMMENTS: Consistent with the [employer] [place] [employer]'s Incidental Findings Committee white paper (J Am Lucinda Radiol 2018): Any incidental renal lesion less than 1 cm or classified as too small to characterize, or any incidental cystic renal lesion characterized as simple-appearing, is likely benign. No follow-up imaging is recommended for these lesions per consensus recommendations based on imaging criteria. Gallbladder Ultrasound 07/27/22 17:18 IMPRESSION: 1. Moderate ascites. 2. Cholelithiasis with diffuse gallbladder wall thickening. Gallbladder wall thickening is diffuse and may be related to ascites and hepatocellular disease. 3. No bile duct dilatation. 4. Bidirectional main portal vein. Head CT 07/27/22 17:18 IMPRESSION: No acute intracranial abnormality. Chest X-Ray 07/28/22 07:00 IMPRESSION: 1. Tubes and catheters are unchanged from the prior exam. 2. Heart is enlarged but stable when compared to the prior exam. 3. Stable right pleuroparenchymal disease. 4. Trace atelectasis or scar noted in the left lung base. Laboratory Results WBC 5.4 10^3/uL (4.0-10.0) 07/29/22 02:51 RBC 2.81 10^6/uL (4.1-5.3) L 07/29/22 02:51 Hgb 7.8 g/dL (11.5-15.3) L 07/29/22 02:51 Hct 27.5 % (37.0-47.0) L 07/29/22 02:51 MCV 97.9 fl (81-99) 07/29/22 02:51 MCH 27.8 pg (28.0-34.0) L 07/29/22 02:51 MCHC 28.4 g/dL (30.0-36.0) L 07/29/22 02:51 RDW 23.8 % (12.1-15.1) H 07/29/22 02:51 Plt Count 107 10^3/cmm (130-400) L 07/29/22 02:51 MPV 13.4 fL (7.4-10.4) H 07/29/22 02:51 Neut % (Auto) 81.0 % 07/29/22 02:51 Lymph % (Auto) 11.4 % 07/29/22 02:51 Sierra % (Auto) 6.7 % 07/29/22 02:51 Eos % (Auto) 0.0 % 07/29/22 02:51 Baso % (Auto) 0.2 % 07/29/22 02:51 Neut # (Auto) 4.35 10^3/uL (1.8-7.7) 07/29/22 02:51 Lymph # (Auto) 0.6 10^3/uL (0.8-4.8) L 07/29/22 02:51 Sierra # (Auto) 0.4 10^3/uL (0.2-0.9) 07/29/22 02:51 Eos # (Auto) 0.0 10^3/uL (0.0-0.8) 07/29/22 02:51 Baso # (Auto) 0.0 10^3/uL (0.0-0.1) 07/29/22 02:51 Nucleated RBC % (auto) 2.8 % 07/29/22 02:51 Nucleated RBCs # 0.2 /100WBC 07/29/22 02:51 ESR < 1 mm/hr (0-15) 07/27/22 13:42 Haptoglobin 10.0 mg/L (30-200) L 07/27/22 21:05 PT 18.00 SECONDS (12.1-14.9) H 07/29/22 02:51 INR 1.44 (0.8-1.2) H 07/29/22 02:51 D-Dimer 5.41 ug/mIFEU (0-0.59) H 07/27/22 19:30 Specimen Type Arterial 07/28/22 03:19 Sample Site Radial, right 07/28/22 03:19 ABG pH 7.27 (7.35-7.45) L 07/28/22 03:19 ABG pCO2 57.5 mmHg (35-45) H 07/28/22 03:19 ABG pO2 86.6 mmHg (80.0-100.0) 07/28/22 03:19 ABG HCO3 26.6 mmol/L (22-26) H 07/28/22 03:19 ABG O2 Saturation 99.0 07/27/22 16:39 ABG Base Excess -0.7 mmol/L (-2.0-2.0) 07/28/22 03:19 Ernesto Test Pos 07/28/22 03:19 A-a O2 Gradient 6.7 mmHg (5-10) 07/27/22 16:39 Hematocrit 26.5 % (37-47) L 07/28/22 03:19 Hgb O2 Saturation 96.2 % (95-100) 07/27/22 16:39 Carboxyhemoglobin 1.9 %THgb (0.4-20.1) 07/27/22 16:39 Methemoglobin 0.9 % (0.4-1.5) 07/27/22 16:39 Total Hemoglobin 9.0 g/dL (12-16) L 07/27/22 16:39 Sodium 141.0 mmol/L (131-143) 07/27/22 16:39 Potassium 3.9 mmol/L (3.5-5.0) 07/27/22 16:39 Glucose 129.0 mg/dL (70-115) H 07/27/22 16:39 Ionized Calcium 1.4 mmol/L (1.1-1.4) 07/27/22 16:39 O2 Delivery Device Bipap 07/28/22 03:19 O2 Liters/Min 4.0 % 07/27/22 16:39 FiO2 30.0 % 07/28/22 03:19 Tattoo Technician ID [email or web address] 07/28/22 03:19 Sodium 135 mmol/L (136-145) L 07/29/22 08:38 Potassium 4.2 mmol/L (3.5-5.1) 07/29/22 08:38 Chloride 98 mmol/L (98-107) 07/29/22 08:38 Carbon Dioxide 26 mmol/L (22-29) 07/29/22 08:38 Anion Gap 15.2 (5-19) 07/29/22 08:38 BUN 11 mg/dL (8-23) 07/29/22 08:38 Creatinine 1.0 mg/dL (0.5-0.9) H 07/29/22 08:38 GFR Calculation Not Reportable 07/29/22 08:38 Glucose 99 mg/dL (65-115) 07/29/22 08:38 Calculated Osmolality 280 mOsm/kg (285-295) L 07/29/22 02:51 Calculated Osmolality 284 mOsm/kg (285-295) L 07/29/22 02:51 Lactic Acid 1.2 mmol/L (0.5-2.2) 07/27/22 19:30 Lactate 1.8 mmol/L (0.5-2.2) 07/29/22 02:51 Calcium 9.0 mg/dL (8.5-10.5) 07/29/22 08:38 Phosphorus 1.4 mg/dL (2.5-4.5) L 07/29/22 08:38 Magnesium 2.5 mg/dL (1.7-2.3) H 07/29/22 08:38 Ferritin 50 ng/mL (15-150) 07/27/22 21:05 Total Bilirubin 1.9 mg/dL (0.15-1.2) H 07/29/22 02:51 Direct Bilirubin 0.90 mg/dL (0.00-0.30) H 07/27/22 21:05 Indirect Bilirubin 0.70 07/27/22 21:05 GGT 14 U/L (5-36) 07/27/22 21:05 AST 24 U/L (0-32) 07/29/22 02:51 ALT 8 U/L (0-33) 07/29/22 02:51 Alkaline Phosphatase 91 U/L (35-105) 07/29/22 02:51 Ammonia 78 umol/L (11-51) H 07/27/22 21:05 Lactate Dehydrogenase 186 U/L (135-214) 07/27/22 21:05 Creatine Kinase 16 U/L (26-192) L 07/29/22 02:51 Troponin T Baseline 65 ng/L (0-10) H 07/27/22 13:42 Troponin T 120 Minute 61.90 ng/L (0-10) H 07/27/22 15:00 Delta Troponin T -3.10 ABS# (0-10) L 07/27/22 15:00 Troponin T Hi Sens 6Hr 59.01 ng/L (0-10) H 07/27/22 19:30 Troponin T Hi Sens 6Hr Delta -5.99 ng/L (0-12) L 07/27/22 19:30 C-Reactive Protein 22.1 mg/L (0.0-4.9) H 07/29/22 02:51 NT-Pro-B Natriuret Pep 6849 pg/mL (0-450) H 07/29/22 02:51 Total Protein 7.7 g/dL (6.6-8.7) 07/29/22 02:51 Albumin 5.3 g/dL (3.5-5.2) H 07/29/22 08:38 Globulin 2.5 g/dL (1.3-4.6) 07/29/22 02:51 Lipase 77 U/L (13-60) H 07/27/22 21:05 Procalcitonin 0.72 ng/mL (0-0.5) H 07/29/22 02:51 TSH 4.65 uIU/mL (0.27-4.20) H 07/27/22 13:42 Random Cortisol 18.22 ug/dL (2.47-19.5) 07/27/22 13:42 Urine Color Cancelled 07/27/22 15:56 Urine Appearance Cancelled 07/27/22 15:56 Urine pH Cancelled 07/27/22 15:56 Ur Specific Enterprise Cancelled 07/27/22 15:56 Urine Protein Cancelled 07/27/22 15:56 Urine Glucose (UA) Cancelled 07/27/22 15:56 Urine Ketones Cancelled 07/27/22 15:56 Urine Blood Cancelled 07/27/22 15:56 Urine Nitrate Cancelled 07/27/22 15:56 Urine Bilirubin Cancelled 07/27/22 15:56 Prot Sulfosalicylic Acd Cancelled 07/27/22 15:56 Urine Urobilinogen Cancelled 07/27/22 15:56 Ur Leukocyte Esterase Cancelled 07/27/22 15:56 Vitals Last Vital Signs Temp 97.4 F L 07/31/22 08:00 Pulse 80 07/31/22 08:00 Resp 16 07/31/22 08:00 BP 104/69 07/31/22 08:00 Pulse Ox 100 07/31/22 08:00 O2 Del Method Nasal Cannula 07/31/22 08:00 O2 Flow Rate 2 07/31/22 08:00 FiO2 30 07/29/22 12:00 Discharge Plan Discharge Patient Disposition: Hospice - Home Condition: Stable Prescriptions: Continued eszopiclone [Lunesta] 2 mg tablet 2 mg PO BEDTIME morphine concentrate 100 mg/5 mL (20 mg/mL) solution 20 mg sublingual DIRECTED PRN (Reason: Pain/SOB) 14 Days Qty: 30 0RF Rx Instructions: 0.25ml-1ml q1H PRN may increase to 0.5ml-1ml Q1H PRN bisacodyl 10 mg suppository 10 mg GA DAILY PRN (Reason: constipation) Qty: 5 0RF Rx Instructions: 1 suppository per rectum every day PRN for constipation. atropine 1 % drops 4 drp sublingual Q4H PRN (Reason: secretions) Qty: 5 0RF Rx Instructions: 4 drops SL q 4 hours PRN for terminal congestion/excessive secretions. ondansetron 4 mg tablet,disintegrating 4 mg translingual Q4H PRN (Reason: nausea) Qty: 5 0RF Rx Instructions: Dissolve 1 tablet under tongue every 4 hours PRN for nausea lorazepam 2 mg/mL concentrate 2 mg sublingual Q4H PRN (Reason: Anxiety/Seizure) Qty: 30 0RF Rx Instructions: 0.25ml-1ml q4H PRN Anxiety/Seizure Start 0.25ml may increase to 0.5ml-1ml q4H Discontinued Amitiza 24 mcg capsule 24 mcg PO BID multivitamin Tablet 1 tab PO BEDTIME hydrocodone-acetaminophen 5-325 mg tablet 1 tab PO BID PRN (Reason: Pain) Breztri Aerosphere 160-9-4.8 mcg/actuation HFA aerosol inhaler 2 inh inhalation BID ropinirole 2 mg tablet 2 mg PO BEDTIME furosemide 40 mg tablet 40 mg PO DAILY levalbuterol tartrate [Xopenex HFA] 45 mcg/actuation HFA aerosol inhaler 2 inh inhalation Q6H Qty: 15 3RF guaifenesin [Mucinex Fast-Max Chest-Congest] 100 mg/5 mL liquid 200 mg PO Q4H PRN (Reason: cough) Qty: 473 3RF lansoprazole [Prevacid] 30 mg capsule,delayed release(DR/EC) 30 mg PO BID Qty: 180 3RF montelukast [Singulair] 10 mg tablet 10 mg PO DAILY Qty: 30 5RF sennosides [senna] 8.6 mg Tablet See Rx Instructions .ROUTE .COMPLEX Rx Instructions: 17.2 mg orally in the morning / 8.6 mg orally in the evening PreserVision AREDS-2 250-90-40-1 mg Capsule 1 tab PO BID ipratropium bromide 21 mcg (0.03 %) spray,non-aerosol 2 spray INTRANASAL TID PRN (Reason: NASAL DRAINAGE) pregabalin [Lyrica] 75 mg Capsule 75 mg PO DAILY propranolol 20 mg tablet 20 mg PO QAM Hold Instructions: Resume on 08/07/22. metoprolol succinate 25 mg tablet extended release 24 hr 12.5 mg PO DAILY nystatin 100,000 unit/mL Suspension 100,000 unit PO BID Rx Instructions: administer 1/2 of dose in each side of the mouth ferrous gluconate 324 mg (38 mg iron) Tablet 324 mg PO DAILY midodrine 5 mg Tablet 10 mg PO TID 30 Days Qty: 180 1RF pantoprazole 40 mg tablet,delayed release (DR/EC) 40 mg PO DAILY bumetanide 1 mg tablet 1 mg PO DAILY Discharge Orders: Discharge Order (Routine); Ordered 07/31/22 Ordered By: Nickolas Morgan Referrals: [facility] ([facility]) [Outside] Neeraj Cardoza MD [Primary Care Provider] - Discharge Diet: Regular Discharge Activity: Resume usual activity Patient Instructions: Opioid Safety Discharge Attestations Time Spent in Discharge Care*: greater than 30 min Quality Metrics Clinical Quality Measures [ No reported AMI, CVA or VTE this stay] Coding Level of Care Code 94757 Total time (in minutes) for Discharge: 50 Diagnoses Need for comfort care ESRD on dialysis N18.6; Z99.2 Acute exacerbation of congestive heart failure I50.9 Hypotension I95.9 Pacemaker syndrome I97.190 Acquired elevated hemidiaphragm J98.6 COPD (chronic obstructive pulmonary disease) J44.9 Diastolic heart failure I50.30 Bicytopenia D75.89 Asthma J45.909 Atrial fibrillation I48.91 Acute respiratory failure with hypoxia and hypercapnia J96.01; J96.02 CAD (coronary artery disease) I25.10 Acute encephalopathy G93.40 CO2 narcosis R06.89 Uremia N19 Aspiration pneumonia J69.0 NSTEMI (non-ST elevated myocardial infarction) I21.4 Hyperbilirubinemia E80.6 Severe muscle deconditioning R29.898 Goals of care, counseling/discussion Z71.89 Fluid overload E87.70 Acute cholecystitis K81.0
[2022-07-31 12:00] VITALS: BP 106/70; PULSE 89; RESP 16; O2SAT 94
[2022-07-31 12:22] VITALS: RESP 16
== END 2022-07-31 13:48 | disposition hospice, home (50) | DRG 871 ==
LOC: ER 16:59 → ICU 17:32 → CSU 07-28 13:52 → ICU 07-28 14:05 → MEDSURG 07-29 22:39
PROVIDERS: Hospitalist; Admitting Provider Family Medicine; Emergency Provider Physician Assistant; PCP Family Medicine; Visit Provider Family Medicine
DX: A41.9 Sepsis, unspecified organism (principal); E43 Unspecified severe protein-calorie malnutrition; G93.41 Metabolic encephalopathy; R65.21 Severe sepsis with septic shock; J69.0 Pneumonitis due to inhalation of food and vomit; N18.6 End stage renal disease; I50.43 Acute on chronic combined systolic (congestive) and diastolic (congestive) heart failure; I21.A1 Myocardial infarction type 2; J96.22 Acute and chronic respiratory failure with hypercapnia; J96.21 Acute and chronic respiratory failure with hypoxia; K81.0 Acute cholecystitis; I13.2 Hypertensive heart and chronic kidney disease with heart failure and with stage 5 chronic kidney disease, or end stage renal disease; N17.9 Acute kidney failure, unspecified; I48.20 Chronic atrial fibrillation, unspecified; I25.5 Ischemic cardiomyopathy; Z68.32 Body mass index [BMI] 32.0-32.9, adult; E66.9 Obesity, unspecified; Z99.89 Dependence on other enabling machines and devices; D64.9 Anemia, unspecified; D69.6 Thrombocytopenia, unspecified; I25.10 Atherosclerotic heart disease of native coronary artery without angina pectoris; J44.9 Chronic obstructive pulmonary disease, unspecified; K21.9 Gastro-esophageal reflux disease without esophagitis; Z99.2 Dependence on renal dialysis; I73.9 Peripheral vascular disease, unspecified; Z95.0 Presence of cardiac pacemaker; I49.5 Sick sinus syndrome; I27.20 Pulmonary hypertension, unspecified; Z51.5 Encounter for palliative care; J98.6 Disorders of diaphragm; I95.3 Hypotension of hemodialysis
CPT/HCPCS: 12345; 36415; 36569; 36592; 36600; 70450; 71045; 71275; 74177; 76705; 80048; 80051; 80053; 80069; 80503; 82140; 82247; 82248; 82330; 82533; 82550; 82728; 82803; 82805; 82977; 83010; 83605; 83615; 83690; 83735; 83880; 84100; 84145; 84443; 84484; 85025; 85378; 85610; 85651; 86140; 87040; 92523; 92610; 93005; 93970; 94660; 96360; 96365; 96372; 96376; 99285; 99291; C1751; C9113; J1642; J1644; J1720; J2185; J2270; J3370; J7030; J7050; J7060; P9046; Q3014; Q9967